=== PATIENT | female | born 1940 | race Caucasian/White ===

== ENCOUNTER 2016-04-21 12:04 | Inpatient (IN) ==
[2016-04-21] MEDS ORDERED: Ondansetron 4 MG/2 ML VIAL IVP ONE (12:19)
[2016-04-21] MEDS ORDERED: Ipratropium/Albuterol Neb 3 ML IH ONE (12:22)
[2016-04-21] MEDS ORDERED: methylPREDNISolone 125 MG/2 ML VIAL IVP ONE (12:22)
[2016-04-21] MEDS ORDERED: 0.9 % Sodium Chloride 1,000 ML IV ONE (12:30)
--- NOTE | 2016-04-21 12:39 | Emergency Department Note ---
Disposition Clinical Impression: [id number] kidney injury, COPD exacerbation, Hypercapnic respiratory failure Disposition: Admitted As Inpatient Time of Disposition: 20:35 General Adult HPI - General Chief complaint: ED Weakness Stated complaint: generalized weakness Time Seen by Provider: 04/21/16 12:06 Source: patient, family, EMS Mode of arrival: EMS Limitations: no limitations Nursing Notes Reviewed: Yes Vital Signs Reviewed: Yes - History of Present Illness HPI Narrative: Ms Higginbotham is a 75-year-old female with past medical history of COPD, aortic valve replacement, iron deficiency anemia, CHF, atrial fibrillation, and breast cancer who presents today with 3 days of generalized weakness. Per patient's patient has been in bed sleeping for almost 3 days, very rarely getting out of bed. He reports that she has been confused about the day and where she is multiple times throughout the last 3 days. On EMS arrival, her O2 saturation was 88% on 2 L which is her baseline supplement oxygen at home. After an albuterol treatment and increase to 4 L supplemental oxygen, her O2 saturation improved to 97%. Patient reports that she has been hurting all over and feeling very weak to the point that she cannot get out of bed. She reports associated shortness of breath and nausea. She denies any upper respiratory infections including runny nose, cough, or congestion. She denies any fever, chills, chest pain or pressure, abdominal pain, or changes in bowel or bladder. On further discussion, patient reports that 3 days ago she fell up steps outside her doctor's office and hit her right hip. She reports that she did not go to the emergency department at that time. She says that she did not hit her head and she did not lose consciousness but that her right hip hurts to walk and to the touch. She states the pain is a 10/10 in severity when she tries to walk and reports pain is better when she does not move. On exam, patient is easily distracted and has difficulty focusing on conversation. She seems slightly confused however she is oriented to person and place. Her eyes are equal and reactive however there is swelling and erythema surrounding her right eye. While she denies any upper respiratory symptoms, she does have wheezing bilateral lung marcano on exam. Abdomen is soft, nontender. She reports significant pain with light touch to right posterior hip. Motor and sensation is grossly intact upper and lower extremities however she does report came with movement of right leg. Pt Subjective Complaint: Generalized weaknesss x 3 days Onset (ago): day(s) Location: right Pain Severity: severe Pain Scale: 9 Improves with: rest Worsens with: movement Associated symptoms: Reports: confusion, malaise, nausea/vomiting, shortness of breath, weakness. Denies: chest pain, cough, diaphoresis, fever/chills, headaches, seizure - Related Data Home Medications Medication Instructions Recorded Confirmed Budesonide/Formoterol 160/4.5 2 puff IH BID PRN 01/30/15 01/12/16 [Symbicort] FLUoxetine HCl [Prozac] 20 mg PO BID 01/30/15 01/12/16 Isosorbide MONOnitrate (24 HR) 30 mg PO DAILY 01/30/15 01/12/16 [Imdur] Furosemide [Lasix] 40 mg PO QPM 08/11/15 01/12/16 Furosemide [Lasix] 80 mg PO QAM 08/11/15 01/12/16 Oxycodone HCl/Acetaminophen 1 tab PO Q6H PRN 08/12/15 01/12/16 [Percocet 10-325 mg Tablet] Allopurinol [Zyloprim 300 MG] 300 mg PO DAILY 01/12/16 01/12/16 Calcium/Vit B12/FA/Pyridoxine 1 tab PO DAILY 01/12/16 01/12/16 [Folic Acid-Vit B6-Vit B12 Tab] Potassium Chloride [K-Tab ER] 20 meq PO BID 01/12/16 01/12/16 Ropinirole HCl [Requip] 2 mg PO BID 01/12/16 01/12/16 Sacubitril/Valsartan [Entresto 24 1 tab PO DAILY 01/12/16 01/12/16 mg-26 mg Tablet] Warfarin [Coumadin] 5 mg PO 5XW 01/12/16 01/12/16 Warfarin [Coumadin] 7.5 mg PO 2XW MDD ,friday01/12/16 01/12/16 Previous Rx's Medication Instructions Recorded Ascorbic Acid [Vitamin C] 250 mg PO BID 30 Days 08/14/15 Ferrous Sulfate 325 mg PO BIDWM #60 tablet 08/14/15 Folic Acid 1 tab PO DAILY #30 tablet 08/16/15 Ergocalciferol (VITAMIN D2) 50,000 unit PO QWEEK #14 capsule 11/03/15 [Vitamin D2 (50,000 UNIT)] Allergies Allergy/AdvReac Type Severity Reaction Status Date / Time albuterol Allergy Drowsy Verified 01/09/16 19:46 Penicillins Allergy Hives Verified 01/09/16 19:46 Sulfa (Sulfonamide Allergy Hives Verified 01/09/16 19:46 Antibiotics) jello AdvReac Nausea Uncoded 01/09/16 19:46 Constitutional: Denies: fever, chills Eyes: Reports: vision change Cardiovascular: Reports: dyspnea on exertion. Denies: chest pain, palpitations Respiratory: Reports: dyspnea, wheezes. Denies: cough Gastrointestinal: Reports: nausea. Denies: abdominal pain, vomiting Genitourinary: Denies: urgency, dysuria, frequency Musculoskeletal: Reports: other (right hip pain) Neurological: Reports: weakness Past Medical History - Past Medical History Medical history: Reports: CHF, COPD, coronary artery disease, diabetes, GI bleed , malignancy, valvular heart disease, other Surgical history: Reports: coronary bypass (CABG), heart valve replacement, MADHAVI/ BSO, other (tonsillectomy, ) Psychiatric history: Reports: no psych history DEVULCANIZER LOADER history: Reports: no DEVULCANIZER LOADER history - Social History Smoking Status: Former smoker Smokeless Tobacco Status: No Alcohol use: Reports: none Drug use: Reports: none Physical Exam - General Limitations: no limitations General appearance: alert, in no apparent distress - Head Head exam: atraumatic, normocephalic - Eye Eye exam: Present: conjunctival injection (right eye), periorbital swelling ( right eye) - ENT ENT exam: normal exam - Neck Neck exam: Present: normal inspection - Chest Chest inspection: Present: normal inspection, symmetric chest wall rise - Respiratory Respiratory exam: Present: wheezes, other (diminished lung sounds and wheezing BL lung marcano) - Cardiovascular Cardiovascular exam: Present: regular rate, normal rhythm - Abdominal Exam Abdominal exam: Present: soft, Non-Tender - Expanded Lower Extremity Exam Hip/Pelvis exam: Present: tenderness (to palpation of right hip) - Neurological Exam Neurological exam: Present: alert, CN II-XII intact - Psychiatric Psychiatric exam: Present: normal affect, normal mood - Skin Skin exam: Present: warm, dry, intact Course Course Narrative: Ms Higginbotham is a 75-year-old female who presents today with 3 days of generalized weakness. On EMS arrival, she was hypoxic. She reports associated shortness of breath and nausea. On further discussion, patient reports that 3 days ago she fell up steps outside her doctor's office and hit her right hip. She reportsthat her right hip hurts to walk and to the touch. On exam, patient is easily distracted and has difficulty focusing on conversation. She seems slightly confused however she is oriented to person and place. Her eyes are equal and reactive however there is swelling and erythema surrounding her right eye. While she denies any upper respiratory symptoms, she does have wheezing bilateral lung marcano on exam. Abdomen is soft, nontender. She reports significant pain with light touch to right posterior hip. Motor and sensation is grossly intact upper and lower extremities however she does report came with movement of right leg. Because of her confusion, with do a CT scan of her head and an EKG. Will her low oxygen saturation, will do a CXR, 3 duoneb treatments , steroids and an ABG. With her hip pain will get a x-ray of her right hip. Will get basic labs, including CBC, CMP, trop, BNP and UA. - Reevaluation(s) Reevaluation #1: Patient remais awake and alert. CT scan a pet showed no acute inter-cranial abnormality. EKG showed no changes from previous with normal sinus rhythm. Right hip x-ray showed no acute osseous abnormality. CMP showed acute and chronic kidney injury with creatinine 3.5. After 3 DuoNeb stations till requiring supplemental oxygen. ABG showed to be hypoxemia and hypercapnic - pH 7.26/ pCO2 86/ PpO2 91/ 38.6. Will give patient some Ativan and place patient on BiPAP. Recheck ABG in 30min. Time: 14:29 Reevaluation #2: Repeat ABG done 30 minutes after being on BiPAP shows CO2 increase from 86 to 88 mph decrease to 7.22. Believe this patient needs admission and BiPAP treatment. However do not feel at this time this patient meets criteria for intubation. Despite Ativan to help with the anxiety associated with BiPAP, patient is able to open eyes when asked screen squeeze my hand and follow commands. Discussed the case for hospitals and he has agreed to admission. - Consultations Consultation #1: Discussed case with Dr. Avery, hospitalist, and he would like us to observe patient on BiPAP to ensure she does not need intubation. We do not feel that patient requires intubation at this time OR ICU level care. He requested that we monitor the patient on BiPAP to see how she does for 30min and do a repeat ABG. Consultation #2: Discussed the case with the hospitalist again and he agreed to admission. Vital Signs Temperature 98.0 F 04/21/16 12:08 Pulse Rate 89 04/21/16 12:08 Respiratory Rate 16 04/21/16 12:08 Blood Pressure 125/112 04/21/16 12:08 O2 Sat by Pulse Oximetry 94 L 04/21/16 12:08 Temperature 97.7 F 04/21/16 17:24 Pulse Rate 83 04/21/16 20:02 Respiratory Rate 12 04/21/16 20:00 Blood Pressure 92/52 04/21/16 20:00 O2 Sat by Pulse Oximetry 100 04/21/16 20:00 Oxygen Delivery Oxygen Delivery Bipap Medical Decision Making - MDM Narrative Medical decision making narrative: Ms Higginbotham is a 75-year-old female who presents today with 3 days of generalized weakness. On EMS arrival, she was hypoxic. She reports associated shortness of breath and nausea. On further discussion, patient reports that 3 days ago she fell up steps outside her doctor's office and hit her right hip. She reportsthat her right hip hurts to walk and to the touch. On exam, patient is easily distracted and has difficulty focusing on conversation. She seems slightly confused however she is oriented to person and place. Her eyes are equal and reactive however there is swelling and erythema surrounding her right eye. While she denies any upper respiratory symptoms, she does have wheezing bilateral lung marcano on exam. Abdomen is soft, nontender. She reports significant pain with light touch to right posterior hip. Motor and sensation is grossly intact upper and lower extremities however she does report came with movement of right leg. CT scan showed no acute inter-cranial abnormality. EKG showed no changes from previous with normal sinus rhythm. Right hip x-ray showed no acute osseous abnormality. CMP showed acute and chronic kidney injury with creatinine 3.5. After 3 DuoNeb stations till requiring supplemental oxygen. Initial ABG showed to be hypoxemia and hypercapnic - pH 7.26/ pCO2 86/ PpO2 91/ 38.6. Patient placed on BiPAP. I believe that her weakness and fatigue are all likely secondary to hypoxemia and hypercapnia. She is likely not getting enough oxygen and that is why she has been staying in bad and sleeping. Unknown with is the cause of her COPD exacerbation. Patient will need admission, BiPAP and further treatment. - Medical Records Medical records reviewed: Yes I reviewed the patient's medical records. - Lab Data Result diagrams: 04/21/16 14:05 04/21/16 14:05 Lab Results 04/21/16 04/21/16 04/21/16 Range/Units 14:05 14:05 14:05 WBC 8.8 (4.3-11.1) K/mcL RBC 3.47 L (3.82-4.97) M/mcL Hgb 9.3 L (11.5-15.4) g/dL Hct 32.0 L (35.3-44.9) % MCV 92.2 (83.0-100.0) fL MCH 26.8 L (28.0-33.3) pg MCHC 29.1 L (31.6-35.5) g/dL RDW 15.5 H (11.5-14.5) % Plt Count 178 (140-400) K/mcL MPV 10.1 (9.4-12.4) fL Immature Gran % 0.5 (0-4) % Seg Neutrophils % 77.8 % Lymphocytes % 12.6 % Monocytes % 6.8 % Eosinophils % 1.8 % Basophils % 0.5 % Neutrophils # 6.8 (1.6-8.9) K/mcL Lymphocytes # 1.1 (0.6-4.6) K/mcL Monocytes # 0.6 (0.0-1.3) K/mcL Eosinophils # 0.2 (0.0-0.6) K/mcL Basophils # 0.0 (0.0-0.2) K/mcL Immature Plt Fraction 3.2 (1.1-6.1) % PT (9.4-12.1) Seconds INR ABG pH (7.32-7.45) pH Units ABG pCO2 (35-45) mmHg ABG pO2 (85-104) mmHg ABG HCO3 (21-27) mEQ/L ABG Total CO2 (20-26) mEq/L ABG O2 Saturation (95-98) % ABG Base Excess (-2.0 to 3.0) mEq/L Blood Gas Modality Inspired O2 % Sodium 137 (136-145) mEq/L Potassium 4.6 H (3.5-4.5) mEq/L Chloride 97 L (98-109) mEq/L Carbon Dioxide 32 H (19-29) mEq/L BUN 77 H D (7-20) mg/dL Creatinine 3.50 H D (0.57-1.11) mg/dL Est GFR ( Amer) 15 L (> 60) Est GFR (Non-Af Amer) 13 L (> 60) BUN/Creatinine Ratio 22 (6-26) Glucose 128 H (70-99) mg/dL Calculated Osmolality 309 H (280-300) Calcium 8.9 (8.6-10.8) mg/dL Total Bilirubin 0.4 (0.2-1.2) mg/dL AST 20 (5-34) Units/L ALT 11 (0-55) Units/L Alkaline Phosphatase 72 (38-126) Units/L Troponin I 0.01 (0-0.03) ng/mL B-Natriuretic Peptide (0-100) pg/mL Serum Total Protein 6.6 (6.0-8.3) g/dL Albumin 3.4 L (3.5-5.0) g/dL Globulin 3.2 (2.4-3.5) g/dL Albumin/Globulin Ratio 1.1 (1.1-2.2) Urine Color (Yellow) Urine Clarity (Clear) Urine pH (5.0-8.0) pH Units Ur Specific [place] (1.010-1.025) Urine Protein (Neg-Trace) mg/dL Urine Glucose (UA) (Normal) mg/dL Urine Ketones (Negative) mg/dL Urine Blood (Negative) Urine Nitrite (Negative) Urine Bilirubin (Negative) Urine Urobilinogen (Normal) mg/dL Ur Leukocyte Esterase (Negative) Ur Culture Indicated? (NO) 04/21/16 04/21/16 04/21/16 Range/Units 14:05 14:05 14:05 WBC (4.3-11.1) K/mcL RBC (3.82-4.97) M/mcL Hgb (11.5-15.4) g/dL Hct (35.3-44.9) % MCV (83.0-100.0) fL MCH (28.0-33.3) pg MCHC (31.6-35.5) g/dL RDW (11.5-14.5) % Plt Count (140-400) K/mcL MPV (9.4-12.4) fL Immature Gran % (0-4) % Seg Neutrophils % % Lymphocytes % % Monocytes % % Eosinophils % % Basophils % % Neutrophils # (1.6-8.9) K/mcL Lymphocytes # (0.6-4.6) K/mcL Monocytes # (0.0-1.3) K/mcL Eosinophils # (0.0-0.6) K/mcL Basophils # (0.0-0.2) K/mcL Immature Plt Fraction (1.1-6.1) % PT 30.1 H (9.4-12.1) Seconds INR 2.7 ABG pH 7.26 L (7.32-7.45) pH Units ABG pCO2 86 H* (35-45) mmHg ABG pO2 91 (85-104) mmHg ABG HCO3 38.6 H (21-27) mEQ/L ABG Total CO2 41.2 H (20-26) mEq/L ABG O2 Saturation 96 (95-98) % ABG Base Excess 8.5 H (-2.0 to 3.0) mEq/L Blood Gas Modality [place] Inspired O2 40 % Sodium (136-145) mEq/L Potassium (3.5-4.5) mEq/L Chloride (98-109) mEq/L Carbon Dioxide (19-29) mEq/L BUN (7-20) mg/dL Creatinine (0.57-1.11) mg/dL Est GFR ( Amer) (> 60) Est GFR (Non-Af Amer) (> 60) BUN/Creatinine Ratio (6-26) Glucose (70-99) mg/dL Calculated Osmolality (280-300) Calcium (8.6-10.8) mg/dL Total Bilirubin (0.2-1.2) mg/dL AST (5-34) Units/L ALT (0-55) Units/L Alkaline Phosphatase (38-126) Units/L Troponin I (0-0.03) ng/mL B-Natriuretic Peptide 151 H (0-100) pg/mL Serum Total Protein (6.0-8.3) g/dL Albumin (3.5-5.0) g/dL Globulin (2.4-3.5) g/dL Albumin/Globulin Ratio (1.1-2.2) Urine Color (Yellow) Urine Clarity (Clear) Urine pH (5.0-8.0) pH Units Ur Specific [place] (1.010-1.025) Urine Protein (Neg-Trace) mg/dL Urine Glucose (UA) (Normal) mg/dL Urine Ketones (Negative) mg/dL Urine Blood (Negative) Urine Nitrite (Negative) Urine Bilirubin (Negative) Urine Urobilinogen (Normal) mg/dL Ur Leukocyte Esterase (Negative) Ur Culture Indicated? (NO) 04/21/16 04/21/16 Range/Units 14:17 15:50 WBC (4.3-11.1) K/mcL RBC (3.82-4.97) M/mcL Hgb (11.5-15.4) g/dL Hct (35.3-44.9) % MCV (83.0-100.0) fL MCH (28.0-33.3) pg MCHC (31.6-35.5) g/dL RDW (11.5-14.5) % Plt Count (140-400) K/mcL MPV (9.4-12.4) fL Immature Gran % (0-4) % Seg Neutrophils % % Lymphocytes % % Monocytes % % Eosinophils % % Basophils % % Neutrophils # (1.6-8.9) K/mcL Lymphocytes # (0.6-4.6) K/mcL Monocytes # (0.0-1.3) K/mcL Eosinophils # (0.0-0.6) K/mcL Basophils # (0.0-0.2) K/mcL Immature Plt Fraction (1.1-6.1) % PT (9.4-12.1) Seconds INR ABG pH 7.22 L (7.32-7.45) pH Units ABG pCO2 88 H* (35-45) mmHg ABG pO2 79 L (85-104) mmHg ABG HCO3 36.0 H (21-27) mEQ/L ABG Total CO2 38.7 H (20-26) mEq/L ABG O2 Saturation 93 L (95-98) % ABG Base Excess 6.6 H (-2.0 to 3.0) mEq/L Blood Gas Modality BIPAP Inspired O2 40 % Sodium (136-145) mEq/L Potassium (3.5-4.5) mEq/L Chloride (98-109) mEq/L Carbon Dioxide (19-29) mEq/L BUN (7-20) mg/dL Creatinine (0.57-1.11) mg/dL Est GFR ( Amer) (> 60) Est GFR (Non-Af Amer) (> 60) BUN/Creatinine Ratio (6-26) Glucose (70-99) mg/dL Calculated Osmolality (280-300) Calcium (8.6-10.8) mg/dL Total Bilirubin (0.2-1.2) mg/dL AST (5-34) Units/L ALT (0-55) Units/L Alkaline Phosphatase (38-126) Units/L Troponin I (0-0.03) ng/mL B-Natriuretic Peptide (0-100) pg/mL Serum Total Protein (6.0-8.3) g/dL Albumin (3.5-5.0) g/dL Globulin (2.4-3.5) g/dL Albumin/Globulin Ratio (1.1-2.2) Urine Color Yellow (Yellow) Urine Clarity Clear (Clear) Urine pH 5.5 (5.0-8.0) pH Units Ur Specific [place] 1.018 (1.010-1.025) Urine Protein Negative (Neg-Trace) mg/dL Urine Glucose (UA) Normal (Normal) mg/dL Urine Ketones Negative (Negative) mg/dL Urine Blood Negative (Negative) Urine Nitrite Negative (Negative) Urine Bilirubin Negative (Negative) Urine Urobilinogen Normal (Normal) mg/dL Ur Leukocyte Esterase Negative (Negative) Ur Culture Indicated? NO (NO) - EKG Data EKG #1 EKG attestation: Yes I reviewed and interpreted this EKG. EKG results narrative: EKG shows sinus arrhythmia with no real changes seen from previous EKG taken on 01/12/2016. No ST segement elevation or T wave inversion. Ventricular rate was 75 bpm, [place] interval 194ms, QRS duration 120ms, QTC 431ms. Critical Care Time Critical Care Time: Yes Total Critical Care Time: 35 Attestation: Critical care performed: Time is exclusive of separately billable procedures. Time includes: direct patient care, patient reassessment, coordination of patient care, interpretation of data (laboratory data, radiology data, and respiratory data), review of patient's medical records, medical consultation and documentation of patient care. Procedures included in critical care time: Procedures excluded from critical care time: Attestation Statement - Attestation Attestation: I examined this patient and my medical decision-making was reviewed with the SHOP MECHANIC HELPER/PA/Advanced Practice Nurse/Resident Physician. I agree with the documented findings, disposition and treatment plan as described except to the extent set forth below. Patient to the emergency department complaining of not feeling well. Her states that she has been laying in bed for 3 days. No fever. Did have a fall a few days ago and is been complaining of hip pain. States she is more confused than normal. On exam patient has expiratory wheezing. Tenderness over that hip. Plan. Septic workup with ABG. Patient with hypercapnic respiratory failure. Placed on BiPAP. Tolerating well. Still awake and alert. Admitted to medicine.
[2016-04-21 14:13] LABS: Basophils % 0.5 %; Eosinophils # 0.2 K/mcL (0.0-0.6); Eosinophils % 1.8 %; Hemoglobin 9.3 g/dL (11.5-15.4); Immature Granulocytes % 0.5 % (0-4); Immature Platelets 3.2 % (1.1-6.1); Lymphocytes # 1.1 K/mcL (0.6-4.6); Lymphocytes % 12.6 %; Mean Corpuscular HGB Conc 29.1 g/dL (31.6-35.5); Mean Corpuscular Hemoglobin 26.8 pg (28.0-33.3); Mean Corpuscular Volume 92.2 fL (83.0-100.0); Mean Platelet Volume 10.1 fL (9.4-12.4); Monocytes # 0.6 K/mcL (0.0-1.3); Monocytes % 6.8 %; Neutrophils # 6.8 K/mcL (1.6-8.9); Platelet Count 178 K/mcL (140-400); Red Blood Count 3.47 M/mcL (3.82-4.97); Red Cell Distribution Width 15.5 % (11.5-14.5); Segmented Neutrophils % 77.8 %
[2016-04-21 14:19] LABS: INR 2.7; Prothrombin Time 30.1 Seconds (9.4-12.1)
[2016-04-21 14:27] LABS: Albumin 3.4 g/dL (3.5-5.0); Albumin/Globulin Ratio 1.1 (1.1-2.2); Bilirubin,Total 0.4 mg/dL (0.2-1.2); Calcium 8.9 mg/dL (8.6-10.8); Globulin 3.2 g/dL (2.4-3.5); Potassium 4.6 mEq/L (3.5-4.5); Total Protein 6.6 g/dL (6.0-8.3)
[2016-04-21] MEDS ORDERED: *HR* LORazepam 2 MG/ML VIAL IVP ONE (14:33)
[2016-04-21] MEDS ORDERED: Levofloxacin 500 MG/100 ML 500 MG/100 ML BAG IVPB ONE (14:37)
[2016-04-21 14:38] LABS: Bilirubin,Urine Negative (Negative); Blood,Urine Negative (Negative); Clarity,Urine Clear (Clear); Color,Urine Yellow (Yellow); Glucose,Urine (UA) Normal (Normal); Ketones,Urine Negative (Negative); Leukocyte Esterase,Urine Negative (Negative); Nitrite,Urine Negative (Negative); PH,Urine 5.5 pH Units (5.0-8.0); Protein,Urine Negative (Neg-Trace); Specific Gravity,Urine 1.018 (1.010-1.025); Urobilinogen,Urine Normal (Normal)
[2016-04-21 15:56] LABS: ABG Base Excess 6.6 mEq/L (-2.0 to 3.0); ABG Oxygen Saturation 93 % (95-98); ABG PH 7.22 pH Units (7.32-7.45); ABG PO2 79 mmHg (85-104); ABG TCO2 38.7 mEq/L (20-26)
[2016-04-21 15:58] LABS: ABG PCO2 88 mmHg (35-45); Blood Gas FiO2 40 %
[2016-04-21 16:06] LABS: ABG PH 7.26 pH Units (7.32-7.45)
[2016-04-21 16:07] LABS: ABG Base Excess 8.5 mEq/L (-2.0 to 3.0); ABG HCO3 38.6 mEQ/L (21-27); ABG Oxygen Saturation 96 % (95-98); ABG PCO2 86 mmHg (35-45); ABG PO2 91 mmHg (85-104); ABG TCO2 41.2 mEq/L (20-26)
[2016-04-21 16:08] LABS: Blood Gas FiO2 40 %
--- NOTE | 2016-04-21 16:42 | Internal Med History&Physical ---
<Mendel Lino - Last Filed: 04/21/16 16:57> Date of Encounter: 04/21/16 Time of Encounter: 16:15 Assessment and Plan (1) Acute and chronic respiratory failure Current visit: Yes Status: Acute Patient presents to the hospital in acute respiratory failure with hypoxemia and hypercapnia. She reportedly has spent the last 3 days doing nothing but sleeping. She normally uses 2 L oxygen at home due to her COPD. At presentation was initially seen that oxygen saturation was 88%, and have itself this is not necessarily a bad oxygen saturation for someone with COPD, but she was having respiratory acidosis with hypercapnia. She was placed on BiPAP, but initial repeat labs done after BiPAP placement showed worsening respiratory failure. BiPAP settings were adjusted and the patient seemed to improve. Rales were heard on exam, but she has not even drank anything in 3 days, suggesting dehydration and further suggesting respiratory infection causing acute exacerbation COPD (even though no wheezing was heard on exam). Will score 1.5, unlikely PE give patient presentation. Continue BiPAP as needed, to decrease CO2 We will provide gentle fluids at 75 mL an hour 500 mL bolus normal saline because of patient hypotension Scheduled and when necessary DuoNeb's 80 mg Solu-Medrol every 6 hours IV Levaquin 750 mg every 48 hour We will obtain echocardiogram We will continue to monitor Diabetes is on her previous medical history, current blood sugar reasonable with no insulin or by mouth medications, will monitor and provide low-dose sliding scale if needed because of steroid usage Qualifiers: Respiratory failure complication: hypoxia and hypercapnia Qualified Code(s) : J96.21 - Acute and chronic respiratory failure with hypoxia; J96.22 - Acute and chronic respiratory failure with hypercapnia (2) Acute exacerbation of chronic obstructive airways disease Current visit: No Status: Resolved No wheezing heard on exam, possibly due to decreased air movement. Patient definitely having increased shortness of breath requiring BiPAP in order to maintain adequate oxygen saturation and decreased CO2. Continue BiPAP as needed 750 mg IV Levaquin every 48 hour Scheduled and as needed DuoNeb's 80 mg Solu-Medrol every 6 hours (3) Congestive heart failure Current visit: No Status: Chronic Patient has history of congestive heart failure with last echocardiogram in January 2015 showing ejection fraction of 30%. Patient has AICD placed in right chest. We will obtain echocardiogram We will cautiously give fluids because of patient dehydration We will continue home medications, but hold Lasix currently Qualifiers: Congestive heart failure type: systolic Congestive heart failure chronicity : chronic Qualified Code(s): I50.22 - Chronic systolic (congestive) heart failure (4) Hypotension Current visit: Yes Status: Acute Hypertension of 90/54 seen on last vitals checked. We will order 500 mL normal saline bolus 75 mL an hour normal saline We will monitor closely Qualifiers: Hypotension type: unspecified hypotension type Qualified Code(s): I95.9 - Hypotension, unspecified (5) Ozfwm-oh-hrgxrvg kidney injury Current visit: Yes Status: Acute Patient reportedly has not ate or drank much in the last 3 days. Acute kidney injury likely due to dehydration from lack of by mouth intake. We will give 500 mL bolus normal saline Gentle fluid repletion due to concern of patient history of congestive heart failure. 75 mL/hour of normal saline (6) H/O aortic valve replacement with tissue graft Current visit: No Status: Chronic (7) DVT prophylaxis Current visit: No Status: Acute Patient currently therapeutic on Coumadin for paroxysmal atrial fibrillation Continue Coumadin On her INR, starting medication that might affect INR going forward. Will adjust accordingly Internal Medicine - H&P: HPI Chief complaint: AMS and SOB Admitted From: Home Plans for Post Hospital Care: Home History of present illness: Ms. Higginbotham is a 75 year old female with history of congestive heart failure (last echo in January 2015 showed EF of 30%), COPD (on 2 L home oxygen), coronary artery disease, diabetes, history of breast cancer, aortic valve replaced, prior CABG, and prior MADHAVI/BSO was brought to the ER by squad because of altered mental status and difficulty breathing for the last 3 days. According to the patient's sister and in speaking with the emergency room doctor (who spoke with the patient's fiancee) the patient has been doing nothing but sleeping for the last 3 days. She has not eaten or drank much in this time frame. Unfortunately , no much more history was able to be obtained. In the emergency room she was placed on BiPAP initially had worsening blood gases, the settings were adjusted and the patient's mentation appeared to improve. Past Med Surg Social Fam HX - Past Medical History Medical history: CHF, COPD, coronary artery disease, diabetes, GI bleed, malignancy, valvular heart disease, other Psychiatric history: no psych history - Past Surgical History Surgical History: coronary bypass (CABG), heart valve replacement, MADHAVI/BSO, other (tonsillectomy, ) - Social History Smoking Status: Former smoker Smokeless Tobacco Status: No Alcohol use: none Drug use: none - Family History Mother Family Member Ethnicity: Non- Living Status: Hx Family Cardiac Disorders: No Hx Family Respiratory Disorders: No Hx Family Cancer: Yes (breast cancer) Hx Family GI Disorders: No Hx Family Endocrine Disorder: No Hx Family Neuromuscular Disorders: No Hx Family Neurologic Disorders: No Hx Family HEENT Disorders: No Hx Family Autoimmune Disorders: No Father Living Status: Hx Family Cardiac Disorders: No Hx Family Respiratory Disorders: No Hx Family Cancer: Yes Hx Family GI Disorders: No Hx Family Endocrine Disorder: No Hx Family Neuromuscular Disorders: No Hx Family Neurologic Disorders: No Hx Family HEENT Disorders: No Hx Family Autoimmune Disorders: No Internal Medicine - H&P: Meds Budesonide/Formoterol 160/4.5 [Symbicort] 2 puff IH BID PRN 01/30/15 [History] FLUoxetine HCl [Prozac] 20 mg PO BID 01/30/15 [History] Isosorbide MONOnitrate (24 HR) [Imdur] 30 mg PO DAILY 01/30/15 [History] Furosemide [Lasix] 40 mg PO QPM 08/11/15 [History] Furosemide [Lasix] 80 mg PO QAM 08/11/15 [History] Oxycodone HCl/Acetaminophen [Percocet 10-325 mg Tablet] 1 tab PO Q6H PRN [History] Ascorbic Acid [Vitamin C] 250 mg PO BID 30 Days 08/14/15 [Rx] Ferrous Sulfate 325 mg PO BIDWM #60 tablet 08/14/15 [Rx] Folic Acid 1 tab PO DAILY #30 tablet 08/16/15 [Rx] Ergocalciferol (VITAMIN D2) [Vitamin D2 (50,000 UNIT)] 50,000 unit PO QWEEK #14 capsule 11/03/15 [Rx] Allopurinol [Zyloprim 300 MG] 300 mg PO DAILY 01/12/16 [History] Calcium/Vit B12/FA/Pyridoxine [Folic Acid-Vit B6-Vit B12 Tab] 1 tab PO DAILY [History] Potassium Chloride [K-Tab ER] 20 meq PO BID 01/12/16 [History] Ropinirole HCl [Requip] 2 mg PO BID 01/12/16 [History] Sacubitril/Valsartan [Entresto 24 mg-26 mg Tablet] 1 tab PO DAILY 01/12/16 [ History] Warfarin [Coumadin] 5 mg PO 5XW 01/12/16 [History] Warfarin [Coumadin] 7.5 mg PO 2XW MDD ,friday01/12/16 [History] Allergies albuterol Allergy (Verified 01/09/16 19:46) Drowsy Penicillins Allergy (Verified 01/09/16 19:46) Hives Sulfa (Sulfonamide Antibiotics) Allergy (Verified 01/09/16 19:46) Hives jello Adverse Reaction (Uncoded 01/09/16 19:46) Nausea ROS unobtainable: due to mental status - Constitutional Vitals: Temp Pulse Resp BP Pulse Ox 98.0 F 81 14 100/48 100 04/21/16 12:08 04/21/16 16:29 04/21/16 16:29 04/21/16 16:29 04/21/16 16:29 General appearance: Present: cooperative, disheveled, A&O X 2, pleasant, severe distress - Head Head exam: Present: atraumatic, normocephalic - Eye Eye exam: Present: conjuntiva pink, sclera anicteric - Neck Neck exam general surgery: Present: supple, trachea midline - Respiratory Respiratory exam: Present: decreased breath sounds, rales, respiratory distress. Absent: accessory muscle use, CTAB, rhonchi, wheezes - Cardiovascular Cardiovascular exam: Present: RRR, +S1, +S2. Absent: diastolic murmur, gallop, rubs, systolic murmur - GI/Abdominal GI/Abdominal exam: Present: normal bowel sounds, soft, no peritoneal signs. Absent: distended, tenderness - Extremities Exam Extremities exam: Present: warm, radial pulses palpable and symetrical. Absent : calf tenderness, cyanotic, pedal edema - Neurological Exam Neurological exam: Present: alert, no focal deficits. Absent: oriented X3 ( Oriented to self and place), facial droop, speech deficit - Skin Skin exam: Present: dry, intact Internal Med - H&P Results - Labs CBC & Chem 7: 04/21/16 14:05 04/21/16 14:05 <Jim Johnson R - Last Filed: 04/21/16 17:52> Date of Encounter: 04/21/16 Internal Medicine - H&P: HPI History of present illness: Ms. Higginbotham is a 75 year old female All Systems PM: A 10-system review of systems was performed and is negative for pertinent findings except as documented above in the HPI. - Constitutional Vitals: Temp Pulse Resp BP Pulse Ox 97.7 F 85 15 103/65 100 04/21/16 17:24 04/21/16 17:24 04/21/16 17:24 04/21/16 17:24 04/21/16 17:24 Internal Med - H&P Results - Labs CBC & Chem 7: 04/21/16 14:05 04/21/16 14:05 - Attending Attestation I have seen and examined this patient independently. I have discussed the case with the resident, Dr. Lino. I agree with the data gathering in the HPI, physical examination findings, assessment and plan as documented by the resident. She has history of COPD, has been sleepy, confused, unable to eat or drink since the last 3 days. She is dehydrated and have respiratory acidosis and CO2 retention along with acute kidney injury. She was placed on BiPAP in the emergency department. We will continue management with noninvasive mechanical ventilation. She is DNR DNI. Plan explained to the patient and her sister who was at bedside, they expressed understanding.
[2016-04-21] MEDS ORDERED: Ondansetron 4 MG/2 ML VIAL IVP PRN (16:44)
[2016-04-21] MEDS ORDERED: Naloxone 0.4 MG/ML INJ IVP PRN (16:44)
[2016-04-21] MEDS ORDERED: Acetaminophen 325 MG TABLET PO PRN (16:44)
[2016-04-21] MEDS ORDERED: Ipratropium/Albuterol Neb 3 ML IH PRN (16:51)
[2016-04-21] MEDS ORDERED: *HR* Dextrose 50 % in Water (Syg) 50 ML SYRINGE IVP PRN (16:53)
[2016-04-21] MEDS ORDERED: Dextrose Gel 15 GM PO PRN ×2 (16:53)
[2016-04-21] MEDS ORDERED: D5% in Water 1,000 ML IV PRN (16:53)
[2016-04-21] MEDS ORDERED: Levofloxacin 250 MG/50 ML 250 MG/50 ML BAG IVPB ONE (17:00)
[2016-04-21] MEDS ORDERED: 0.9 % Sodium Chloride 500 ML IVC ONE (17:11)
[2016-04-21] MEDS ORDERED: Warfarin perPT PO PRN (18:00)
[2016-04-21] MEDS ORDERED: *HR* Warfarin 5 MG TABLET PO ONE (18:00)
[2016-04-21] MEDS: 0.9 % Sodium Chloride 1,000 ML IVC SCH (18:57)
[2016-04-21] MEDS: methylPREDNISolone 125 MG/2 ML VIAL IVP SCH ×2 (18:58→23:43)
[2016-04-21] MEDS: Insulin LISPRO 300 UNITS/3 ML VIAL SQ SCH (18:58)
[2016-04-21] MEDS: Ipratropium/Albuterol Neb 3 ML IH SCH ×2 (20:35→23:51)
[2016-04-21] MEDS ORDERED: Insulin LISPRO 300 UNITS/3 ML VIAL SQ SCH (21:00)
[2016-04-21 21:08] LABS: ABG Base Excess 7.4 mEq/L (-2.0 to 3.0); ABG HCO3 36.3 mEQ/L (21-27); ABG Oxygen Saturation 99 % (95-98); ABG PH 7.26 pH Units (7.32-7.45); ABG PO2 137 mmHg (85-104); ABG TCO2 38.8 mEq/L (20-26)
[2016-04-21 21:09] LABS: ABG PCO2 81 mmHg (35-45); Blood Gas FiO2 60 %
[2016-04-22] MEDS: Insulin LISPRO 300 UNITS/3 ML VIAL SQ SCH ×5 (00:07→18:14)
[2016-04-22 04:41] LABS: ABG PH 7.31 pH Units (7.32-7.45); ABG PO2 92 mmHg (85-104)
[2016-04-22 04:42] LABS: ABG Base Excess 7.7 mEq/L (-2.0 to 3.0); ABG HCO3 35.2 mEQ/L (21-27); ABG Oxygen Saturation 96 % (95-98); ABG TCO2 37.3 mEq/L (20-26); Blood Gas FiO2 40 %
[2016-04-22 04:43] LABS: ABG PCO2 70 mmHg (35-45)
[2016-04-22] MEDS: Ipratropium/Albuterol Neb 3 ML IH SCH ×7 (05:00→23:02)
[2016-04-22] MEDS: methylPREDNISolone 125 MG/2 ML VIAL IVP SCH ×3 (05:36→18:14)
[2016-04-22 05:55] LABS: INR 2.8; Prothrombin Time 31.4 Seconds (9.4-12.1)
[2016-04-22 06:20] LABS: Hematocrit 27.3 % (35.3-44.9); Immature Granulocytes % 1.1 % (0-4); Lymphocytes # 0.2 K/mcL (0.6-4.6); Lymphocytes % 4.3 %; Mean Corpuscular HGB Conc 29.3 g/dL (31.6-35.5); Mean Corpuscular Hemoglobin 26.5 pg (28.0-33.3); Mean Corpuscular Volume 90.4 fL (83.0-100.0); Mean Platelet Volume 10.6 fL (9.4-12.4); Monocytes % 0.7 %; Neutrophils # 4.1 K/mcL (1.6-8.9); Platelet Count 143 K/mcL (140-400); Red Blood Count 3.02 M/mcL (3.82-4.97); Red Cell Distribution Width 15.1 % (11.5-14.5); Segmented Neutrophils % 93.9 %
[2016-04-22 06:33] LABS: Calcium 8.4 mg/dL (8.6-10.8); Magnesium 2.3 mg/dL (1.6-2.6); Phosphorous 5.1 mg/dL (2.3-4.7); Potassium 5.3 mEq/L (3.5-4.5)
[2016-04-22] MEDS ORDERED: Insulin LISPRO 300 UNITS/3 ML VIAL SQ SCH (07:30)
[2016-04-22 08:05] LABS: Anisocytosis 1+ (Not Present); Platelet Estimate Normal (Normal)
[2016-04-22] MEDS: Pantoprazole 40 MG VIAL IVP SCH (09:59)
[2016-04-22] MEDS: 0.9 % Sodium Chloride 1,000 ML IVC SCH (09:59)
--- NOTE | 2016-04-22 13:32 | ECHO - Doppler Report ---
Echocardiogram Name: Janay Higginbotham Date of Study: 04/22/2016 Date: 1940 Ht: 60.0 in Medical Record#: [id number] Age: 75 Wt: 204.0 lb Gender: Female BSA: 1.88 Order #: [id number] Location: [facility] Room #: 2N14 Reading Physician: Juni Ramirez DO, ILIA, LUCILA CUADRA Glass Sander: Brenda Bird RVT Ordering Physician: Mendel Lino DO Primary Physician: Francisco Melgar DO Indications: Past heart failure, repiratory distress Impressions: LVEF 55%. Mildly dilated left ventricle. Normal LV wall thickness and function. Mild left ventricular diastolic dysfunction. Atypical septal motion consistent with post-operative status. Normal right ventricular structure and function. Mechanical aortic valve appears well seated in the LVOT. Leaflest were not well visualized, but appears to demosntrate acceptable function by Doppler. Mean gradient 20 mmHg. Correlate with size and type of valve. No aortic regurgitation. No evidence of pulmonary hypertension. Compared to prior reports, LVEF has improved. Left Ventricular Wall Motion: Rest Echo Findings All wall segments showed normal motion. Findings: Study Quality * Technically sub-optimal due to poor echocardiographic windows. ECG Findings * Normal sinus rhythm. Left Ventricle * LVEF 55%. * Mildly dilated left ventricle. * Normal LV wall thickness and function. * Mild left ventricular diastolic dysfunction. * Atypical septal motion consistent with post-operative status. Right Ventricle * Normal right ventricular structure and function. Left Atrium * Moderately dilated left atrium. Right Atrium * Mildly dilated right atrium. Interatrial Septum * No evidence of PFO by color Doppler. Aortic Valve * Mechanical aortic valve appears well seated in the LVOT. Leaflest were not well visualized, but appears to demosntrate acceptable function by Doppler. * Mean gradient 20 mmHg. Correlate with size and type of valve. * No aortic regurgitation. Mitral Valve * Mild mitral annular calcification * No mitral stenosis. * No mitral regurgitation. Tricuspid Valve * Normal tricuspid valve structure and function. * Trace tricuspid regurgitation. * No evidence of pulmonary hypertension. Pulmonic Valve * Pulmonic valve not well visualized. Aorta * Normally sized aortic root. Pericardium * The pericardium appears normal. IVC * Normal IVC dimensions and inspiratory collapse. Pulmonary Artery * Normal visualized portions of the main pulmonary artery. History Family History of CAD Pacer/ICD Implant Valvular Disease Valve Replacement AV Prosthesis Mechanical 01/30/2015 a Previous Echo was performed. Measurements: BP: 83/ 43 2D Normal Values RVIDd: 2.49 cm <2.7 cm IVSd: .81 cm 0.6 - 1.0 cm LVIDd: 5.60 cm 3.7 - 5.6 cm LVPWd: .82 cm 0.6 - 1.1 cm LVIDs: 4.77 cm 1.5 - 3.6 cm AO: 2.00 cm < 4.0 cm LA: 4.50 cm 2.0 - 4.0cm %FS: 31.20 cm >25 % LVOT Diam: 1.80 cm LA volume: 90.2 Mitral Valve Peak E:1.18 m/sec Peak A:1.38 m/sec E/A Ratio:0.9 Peak E' Lat Jayant:18.6 cm/s Peak E' Med Jayant:10.4 cm/s E/E' Lat Ratio:6.3 E/E' Med Ratio:11.3 LVOT Peak Jayant:1.05 m/sec Mean Jayant:.67 m/sec Peak Grad:4.00 mmHg Mean Grad:2.33 mmHg Aortic Valve Peak Jayant:2.91 m/sec Mean Jayant:1.94 m/sec Peak Grad:34.00 mmHg Mean Grad:17.40 mmHg Valve Area:.98 cm2 Tricuspid Valve TV Regurg Peak Grad: 12.00mmHg TV Regurg Peak Jayant: 1.75m/sec Updated by Juni Ramirez DO, ILIA, LUCILA CUADRA on 04/22/2016 1:28:13 PM electronically signed on 04/22/2016 1:28:38 PM with status of Final Wall Motion Harrison: 1=Normal, 2=Hypokinesis, 3=Akinesis, 4=Dyskinesis, 5=Aneurysmal, 6=Hyperkinetic, X=Not Visualized (Blank)=Missing
--- NOTE | 2016-04-22 14:34 | Electrocardiograph Report ---
[facility] Test Date: 2016-04-21 Pat Name: Janay Higginbotham Department: 105 Room: 2N14 Gender: F Clearing Supervisor: : 1940 Requested By: Natalee Bolton Order Number: [id number] Reading MD: Leonard Sánchez MD Measurements Intervals Marshall Rate: 75 P: 60 HI: 164 QRS: -3 QRSD: 120 T: 21 QT: 403 QTc: 431 Interpretive Statements SINUS RHYTHM WITH SINUS ARRHYTHMIA INTRAVENTRICULAR CONDUCTION DELAY POOR R WAVE PROGRESSION Electronically Signed On 04-22-16 14:33:40 EST by Leonard Sánchez MD
[2016-04-22] MEDS ORDERED: 0.9 % Sodium Chloride 500 ML IVC ONE (15:37)
--- NOTE | 2016-04-22 16:38 | Internal Med Progress Note ---
Date of Encounter: 04/22/16 Time of Encounter: 10:55 - Assessment and plan (1) Acute and chronic respiratory failure Current Visit: Yes Status: Acute Assessment and plan: Improved with BiPAP Awake and alert this a.m Continue O2 Secondary to COPDE Continue steroids, antibiotics Continue scheduled and prn nebs ECHO noted for LVEF 50%, prostheticc AV is functional Continue close monitoring BiPAP at bedside patient is DNR/DNI Qualifiers: Respiratory failure complication: hypoxia and hypercapnia Qualified Code(s) : J96.21 - Acute and chronic respiratory failure with hypoxia; J96.22 - Acute and chronic respiratory failure with hypercapnia (2) Baogx-ip-eenksuf kidney injury Current Visit: Yes Status: Acute Assessment and plan: Improving. Cr today Given gentle bolus 500cc due to age and CHF Continue maintenance fluid Monitor closely Avoid nephrotoxins (3) COPD exacerbation Current Visit: Yes Status: Acute Assessment and plan: Management as in respiratory failure (4) Diabetes Current Visit: Yes Status: Chronic Assessment and plan: Supplemental scale insulin, diet-controlled at home Qualifiers: Diabetes mellitus type: other specified (including [place]) Diabetes mellitus complication status: with unspecified complications Diabetes mellitus technician terminal and repeater insulin use: without shelter use Qualified Code(s): E13.8 - Other specified diabetes mellitus with unspecified complications (5) Hypotension Current Visit: Yes Status: Acute Assessment and plan: IVF Qualifiers: Hypotension type: unspecified hypotension type Qualified Code(s): I95.9 - Hypotension, unspecified (6) DVT prophylaxis Current Visit: Yes Status: Acute Assessment and plan: Patient on Coumadin, INR is therapeutic (7) H/O aortic valve replacement with tissue graft Current Visit: No Status: Chronic Assessment and plan: Continue coumadin (8) Hypothyroidism Current Visit: Yes Status: Chronic Assessment and plan: Resume synthroid Qualifiers: Hypothyroidism type: unspecified Qualified Code(s): E03.9 - Hypothyroidism , unspecified (9) Atrial fibrillation Current Visit: Yes Status: Chronic Assessment and plan: Rate controlled s/p ICD Continue coumadin INR therapeutic Qualifiers: Atrial fibrillation type: chronic Qualified Code(s): I48.2 - Chronic atrial fibrillation - Subjective Interval history: 75 Y/O F DNR/DNI Admitted for management of acute on chronic respiratory failure secondary to COPDE required BiPAP on admission , now improved Other PMH significant for Afib with ICD, on Coumadin, DM, HTN, Hypothyroidism, s /p aorti valve repalcement Seen at bedside this morning, reports improvement Patient remained hypotensive with MAP ~58 at time of review - Constitutional Vitals: Temp Pulse Resp BP Pulse Ox 99.3 F 94 18 93/41 95 04/22/16 16:12 04/22/16 16:12 04/22/16 16:12 04/22/16 16:12 04/22/16 16:12 General appearance: Present: cooperative, A&O X 2, pleasant, no acute distress, obese - Head Head exam: Present: atraumatic, normocephalic - Eye Eye exam: Present: PERRL, conjuntiva pink, sclera anicteric Pupils: Present: PERRL - Neck Neck exam general surgery: Present: supple, trachea midline. Absent: lymphadenopathy - Respiratory Respiratory exam: Present: CTAB - Cardiovascular Cardiovascular exam: Present: diastolic murmur, irregular rhythm, +S1, +S2, systolic murmur - GI/Abdominal GI/Abdominal exam: Present: normal bowel sounds, soft, no peritoneal signs. Absent: tenderness - Extremities Exam Extremities exam: Absent: pedal edema - Neurological Exam Neurological exam: Present: CN II-XII intact, oriented X3, no focal deficits. Absent: pronater drift, facial droop, speech deficit - Skin Skin exam: Present: dry Internal Medicine: Result - Labs CBC & Chem 7: 04/22/16 05:24 04/22/16 05:24 Labs: Short CBC 04/22/16 Range/Units 05:24 WBC 4.4 (4.3-11.1) K/mcL Hgb 8.0 L (11.5-15.4) g/dL Hct 27.3 L (35.3-44.9) % Plt Count 143 (140-400) K/mcL Neutrophils # 4.1 (1.6-8.9) K/mcL BMP 04/22/16 05:24 Sodium 138 Potassium 5.3 H Chloride 102 Carbon Dioxide 28 BUN 76 H Creatinine 2.61 H Glucose 140 H Calcium 8.4 L - ABG Interpretation ABG results: ABG ABG pH 7.31 pH Units (7.32-7.45) L 04/22/16 04:30 ABG pCO2 70 mmHg (35-45) H* 04/22/16 04:30 ABG pO2 92 mmHg (85-104) 04/22/16 04:30 ABG O2 Saturation 96 % (95-98) 04/22/16 04:30 PT/INR, D-dimer PT 31.4 Seconds (9.4-12.1) H 04/22/16 05:24 Consult Discharge Plan - Plan Referrals: Francisco Melgar Jr [Primary Care Provider] -
[2016-04-22] MEDS ORDERED: *HR* Warfarin 5 MG TABLET PO ONE (18:00)
[2016-04-22] MEDS: Ascorbic Acid 500 MG TABLET PO SCH (22:44)
[2016-04-22] MEDS: FLUoxetine 20 MG CAPSULE PO SCH (22:44)
[2016-04-23] MEDS ORDERED: *HR* Morphine 2 MG/ML SYRINGE IVP ONE (00:39)
[2016-04-23] MEDS ORDERED: Furosemide 40 MG/4 ML VIAL IVP ONE (00:39)
[2016-04-23] MEDS ORDERED: *HR* Morphine 2 MG/ML SYRINGE ONE (00:42)
[2016-04-23] MEDS ORDERED: Furosemide 40 MG/4 ML VIAL ONE (00:42)
[2016-04-23] MEDS: methylPREDNISolone 125 MG/2 ML VIAL IVP SCH ×4 (00:58→21:09)
--- NOTE | 2016-04-23 02:47 | Event Note ---
Date of Encounter: 04/23/16 Time of Encounter: 01:15 I was paged as the patient was jittery and complaining of shortness of breath Pt. on BIPAP and receiving fluids Pt. reported difficulty breathing IV fluids were being given due to hypotension Exam revealed patient in moderate respiratory distress despite BIPAP Bilateral diffuse crepitations present IV fluids DC Lasix 40 mg IV x 1 Morphine 2 mg iv x 1 On reassessment 1 hour later, patient feeling better and no longer jittery Able to sleep in BIPAP And has good urine output [place]
[2016-04-23] MEDS: Ipratropium/Albuterol Neb 3 ML IH SCH ×5 (03:36→21:35)
[2016-04-23 05:20] LABS: ABG HCO3 35.3 mEQ/L (21-27); ABG Oxygen Saturation 94 % (95-98); ABG PCO2 52 mmHg (35-45); ABG PH 7.44 pH Units (7.32-7.45); ABG PO2 68 mmHg (85-104); ABG TCO2 36.9 mEq/L (20-26)
[2016-04-23 05:21] LABS: Blood Gas FiO2 35 %; Blood Gas PEEP 8 cm H2O; Blood Gas Respiration Rate 18
[2016-04-23] MEDS: Insulin LISPRO 300 UNITS/3 ML VIAL SQ SCH ×4 (05:31→16:31)
[2016-04-23] MEDS: 0.9 % Sodium Chloride 1,000 ML IVC SCH (05:31)
[2016-04-23 06:19] LABS: Basophils % 0.1 %; Hematocrit 25.4 % (35.3-44.9); Hemoglobin 7.9 g/dL (11.5-15.4); Immature Granulocytes % 0.7 % (0-4); Lymphocytes # 0.2 K/mcL (0.6-4.6); Lymphocytes % 2.1 %; Mean Corpuscular HGB Conc 31.1 g/dL (31.6-35.5); Mean Corpuscular Hemoglobin 27.1 pg (28.0-33.3); Mean Platelet Volume 10.3 fL (9.4-12.4); Monocytes # 0.3 K/mcL (0.0-1.3); Monocytes % 2.3 %; Neutrophils # 10.7 K/mcL (1.6-8.9); Platelet Count 136 K/mcL (140-400); Red Blood Count 2.92 M/mcL (3.82-4.97); Red Cell Distribution Width 15.5 % (11.5-14.5); Segmented Neutrophils % 94.8 %
[2016-04-23 06:26] LABS: INR 2.7; Prothrombin Time 30.5 Seconds (9.4-12.1)
[2016-04-23 07:52] LABS: Calcium 9.2 mg/dL (8.6-10.8); Potassium 4.2 mEq/L (3.5-4.5)
[2016-04-23] MEDS: Ascorbic Acid 500 MG TABLET PO SCH ×2 (09:03→21:08)
[2016-04-23] MEDS: Folic Acid 1 MG TABLET PO SCH (09:04)
[2016-04-23] MEDS: Pantoprazole 40 MG VIAL IVP SCH (09:04)
[2016-04-23] MEDS: FLUoxetine 20 MG CAPSULE PO SCH ×2 (09:04→21:09)
[2016-04-23] MEDS ORDERED: Levofloxacin 500 MG/100 ML 500 MG/100 ML BAG IVPB SCH (15:00)
--- NOTE | 2016-04-23 15:43 | Internal Med Progress Note ---
Date of Encounter: 04/23/16 Time of Encounter: 08:00 - Assessment and plan (1) Acute and chronic respiratory failure Current Visit: Yes Status: Acute Assessment and plan: Improved this morning. Patient has been requiring BiPAP on and off especially when sleeping. Will assess for BiPAP needs at home with overnight BiPAP and ABG monitoring. Qualifiers: Respiratory failure complication: hypoxia and hypercapnia Qualified Code(s) : J96.21 - Acute and chronic respiratory failure with hypoxia; J96.22 - Acute and chronic respiratory failure with hypercapnia (2) SON (acute kidney injury) Current Visit: No Status: Acute Assessment and plan: Improving. Intravenous fluids have been held. Patient did receive Lasix overnight. Will follow renal function. (3) COPD exacerbation Current Visit: Yes Status: Acute Assessment and plan: Wean FiO2 and steroids as tolerated. Continue bronchodilator nebulizer treatments. (4) DVT prophylaxis Current Visit: Yes Status: Acute Assessment and plan: on Coumadin. INR is therapeutic (5) Hypotension Current Visit: Yes Status: Resolved Assessment and plan: Resolved. Blood pressure is normal. Qualifiers: Hypotension type: other hypotension type Qualified Code(s): I95.89 - Other hypotension (6) Atrial fibrillation Current Visit: Yes Status: Chronic Assessment and plan: Rate controlled. Qualifiers: Atrial fibrillation type: paroxysmal Qualified Code(s): I48.0 - Paroxysmal atrial fibrillation (7) Diabetes Current Visit: Yes Status: Chronic Assessment and plan: Continue to monitor blood sugars. We will adjust insulin regimen as steroids are Weaned down. 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 - Subjective Interval history: Patient complaining of tremors, shortness of breath and jitteriness or anxiety overnight. Received intravenous Lasix. Had improvement in her symptoms afterwards. Currently still having tremors. She says this occurs when she takes her bronchodilators and steroids. She has been refusing intravenous methylprednisolone because of this reason. - Constitutional Vitals: Temp Pulse Resp BP Pulse Ox 98.0 F 96 18 121/69 100 04/23/16 11:38 04/23/16 11:51 04/23/16 11:38 04/23/16 11:38 04/23/16 11:38 General appearance: Present: cooperative, A&O X 2, pleasant, no acute distress, obese Exam: Moderate distress - Respiratory Respiratory exam: Present: decreased breath sounds (Diminished bilaterally), prolonged expiratory phase, wheezes (Bilateral). Absent: accessory muscle use, rales, rhonchi - Cardiovascular Cardiovascular exam: Present: RRR, +S1, +S2. Absent: diastolic murmur, gallop, rubs, systolic murmur - GI/Abdominal GI/Abdominal exam: Present: normal bowel sounds, soft, no peritoneal signs. Absent: distended, tenderness - Extremities Exam Extremities exam: Present: warm, radial pulses palpable and symetrical. Absent : calf tenderness, cyanotic, pedal edema - Neurological Exam Neurological exam: Present: CN II-XII intact, oriented X3, no focal deficits. Absent: facial droop, speech deficit Additional comments: Bilateral tremors - Skin Skin exam: Present: dry, intact Internal Medicine: Result - Labs CBC & Chem 7: 04/23/16 06:00 04/23/16 06:00 Labs: Short CBC 04/23/16 Range/Units 06:00 WBC 11.3 H D (4.3-11.1) K/mcL Hgb 7.9 L (11.5-15.4) g/dL Hct 25.4 L (35.3-44.9) % Plt Count 136 L (140-400) K/mcL Neutrophils # 10.7 H (1.6-8.9) K/mcL BMP 04/23/16 06:00 Sodium 140 Potassium 4.2 D Chloride 102 Carbon Dioxide 29 BUN 68 H Creatinine 1.81 H Glucose 165 H Calcium 9.2 - ABG Interpretation ABG results: ABG ABG pH 7.44 pH Units (7.32-7.45) 04/23/16 05:14 ABG pCO2 52 mmHg (35-45) H 04/23/16 05:14 ABG pO2 68 mmHg (85-104) L 04/23/16 05:14 ABG O2 Saturation 94 % (95-98) L 04/23/16 05:14 PT/INR, D-dimer PT 30.5 Seconds (9.4-12.1) H 04/23/16 06:00 - Impressions Impressions Chest X-Ray 04/23/16 08:14 IMPRESSION: No acute cardiopulmonary process identified. D/ / Diaz Roldan MD / Diaz Roldan MD Interpreting Provider: Diaz Roldan MD Consult Discharge Plan - Plan Referrals: Francisco Melgar Jr [Primary Care Provider] - 05/06/16 3:00 pm (YOUR APPOINTMENT FOR MAY 24, 2016 AT 1420 HAS BEEN CANCELLED) - Attending Attestation This document has been at least partially created by [employer] recognition technology by Dr. Kraft. Errors in grammar, wording or other phrases may exist. If errors are found after the documentation is signed, they will be addressed individually in the addendum section of this document when appropriate. Medical Decision Making - MDM Narrative Medical decision making narrative: High risk for complications - Lab Data Lab results reviewed: Yes I reviewed the patient's lab results. Result diagrams: 04/23/16 06:00 04/23/16 06:00 Lab Results 04/21/16 04/21/16 04/21/16 Range/Units 17:39 20:58 21:01 WBC (4.3-11.1) K/mcL RBC (3.82-4.97) M/mcL Hgb (11.5-15.4) g/dL Hct (35.3-44.9) % MCV (83.0-100.0) fL MCH (28.0-33.3) pg MCHC (31.6-35.5) g/dL RDW (11.5-14.5) % Plt Count (140-400) K/mcL MPV (9.4-12.4) fL Immature Gran % (0-4) % Seg Neutrophils % % Lymphocytes % % Monocytes % % Eosinophils % % Basophils % % Neutrophils # (1.6-8.9) K/mcL Lymphocytes # (0.6-4.6) K/mcL Monocytes # (0.0-1.3) K/mcL Eosinophils # (0.0-0.6) K/mcL Basophils # (0.0-0.2) K/mcL Platelet Estimate (Normal) Anisocytosis (Not Present) PT (9.4-12.1) Seconds INR ABG pH 7.26 L (7.32-7.45) pH Units ABG pCO2 81 H* (35-45) mmHg ABG pO2 137 H (85-104) mmHg ABG HCO3 36.3 H (21-27) mEQ/L ABG Total CO2 38.8 H (20-26) mEq/L ABG O2 Saturation 99 H (95-98) % ABG Base Excess 7.4 H (-2.0 to 3.0) mEq/L Respiration Rate Blood Gas Modality BIPAP Inspired O2 60 % PEEP cm H2O Sodium (136-145) mEq/L Potassium (3.5-4.5) mEq/L Chloride (98-109) mEq/L Carbon Dioxide (19-29) mEq/L BUN (7-20) mg/dL Creatinine (0.57-1.11) mg/dL Est GFR ( Amer) (> 60) Est GFR (Non-Af Amer) (> 60) BUN/Creatinine Ratio (6-26) Glucose (70-99) mg/dL POC Glucose 192 H 192 H (58-89) Calculated Osmolality (280-300) Calcium (8.6-10.8) mg/dL Phosphorus (2.3-4.7) mg/dL Magnesium (1.6-2.6) mg/dL Blood Type Antibody Screen 04/22/16 04/22/16 04/22/16 Range/Units 04:30 05:06 05:24 WBC 4.4 (4.3-11.1) K/mcL RBC 3.02 L (3.82-4.97) M/mcL Hgb 8.0 L (11.5-15.4) g/dL Hct 27.3 L (35.3-44.9) % MCV 90.4 (83.0-100.0) fL MCH 26.5 L (28.0-33.3) pg MCHC 29.3 L (31.6-35.5) g/dL RDW 15.1 H (11.5-14.5) % Plt Count 143 (140-400) K/mcL MPV 10.6 (9.4-12.4) fL Immature Gran % 1.1 (0-4) % Seg Neutrophils % 93.9 % Lymphocytes % 4.3 % Monocytes % 0.7 % Eosinophils % 0.0 % Basophils % 0.0 % Neutrophils # 4.1 (1.6-8.9) K/mcL Lymphocytes # 0.2 L (0.6-4.6) K/mcL Monocytes # 0.0 (0.0-1.3) K/mcL Eosinophils # 0.0 (0.0-0.6) K/mcL Basophils # 0.0 (0.0-0.2) K/mcL Platelet Estimate Normal (Normal) Anisocytosis 1+ A (Not Present) PT (9.4-12.1) Seconds INR ABG pH 7.31 L (7.32-7.45) pH Units ABG pCO2 70 H* (35-45) mmHg ABG pO2 92 (85-104) mmHg ABG HCO3 35.2 H (21-27) mEQ/L ABG Total CO2 37.3 H (20-26) mEq/L ABG O2 Saturation 96 (95-98) % ABG Base Excess 7.7 H (-2.0 to 3.0) mEq/L Respiration Rate Blood Gas Modality BIPAP Inspired O2 40 % PEEP cm H2O Sodium (136-145) mEq/L Potassium (3.5-4.5) mEq/L Chloride (98-109) mEq/L Carbon Dioxide (19-29) mEq/L BUN (7-20) mg/dL Creatinine (0.57-1.11) mg/dL Est GFR ( Amer) (> 60) Est GFR (Non-Af Amer) (> 60) BUN/Creatinine Ratio (6-26) Glucose (70-99) mg/dL POC Glucose 140 H (58-89) Calculated Osmolality (280-300) Calcium (8.6-10.8) mg/dL Phosphorus (2.3-4.7) mg/dL Magnesium (1.6-2.6) mg/dL Blood Type Antibody Screen 04/22/16 04/22/1604/22/17 Range/Units 05:24 05:24 11:56 WBC (4.3-11.1) K/mcL RBC (3.82-4.97) M/mcL Hgb (11.5-15.4) g/dL Hct (35.3-44.9) % MCV (83.0-100.0) fL MCH (28.0-33.3) pg MCHC (31.6-35.5) g/dL RDW (11.5-14.5) % Plt Count (140-400) K/mcL MPV (9.4-12.4) fL Immature Gran % (0-4) % Seg Neutrophils % % Lymphocytes % % Monocytes % % Eosinophils % % Basophils % % Neutrophils # (1.6-8.9) K/mcL Lymphocytes # (0.6-4.6) K/mcL Monocytes # (0.0-1.3) K/mcL Eosinophils # (0.0-0.6) K/mcL Basophils # (0.0-0.2) K/mcL Platelet Estimate (Normal) Anisocytosis (Not Present) PT 31.4 H (9.4-12.1) Seconds INR 2.8 ABG pH (7.32-7.45) pH Units ABG pCO2 (35-45) mmHg ABG pO2 (85-104) mmHg ABG HCO3 (21-27) mEQ/L ABG Total CO2 (20-26) mEq/L ABG O2 Saturation (95-98) % ABG Base Excess (-2.0 to 3.0) mEq/L Respiration Rate Blood Gas Modality Inspired O2 % PEEP cm H2O Sodium 138 (136-145) mEq/L Potassium 5.3 H (3.5-4.5) mEq/L Chloride 102 (98-109) mEq/L Carbon Dioxide 28 (19-29) mEq/L BUN 76 H (7-20) mg/dL Creatinine 2.61 H (0.57-1.11) mg/dL Est GFR ( Amer) 22 L (> 60) Est GFR (Non-Af Amer) 18 L (> 60) BUN/Creatinine Ratio 29 H (6-26) Glucose 140 H (70-99) mg/dL POC Glucose 277 H (58-89) Calculated Osmolality 311 H (280-300) Calcium 8.4 L (8.6-10.8) mg/dL Phosphorus 5.1 H (2.3-4.7) mg/dL Magnesium 2.3 (1.6-2.6) mg/dL Blood Type Antibody Screen 04/22/16 04/23/16 04/23/16 Range/Units 18:29 05:14 06:00 WBC 11.3 H D (4.3-11.1) K/mcL RBC 2.92 L (3.82-4.97) M/mcL Hgb 7.9 L (11.5-15.4) g/dL Hct 25.4 L (35.3-44.9) % MCV 87.0 (83.0-100.0) fL MCH 27.1 L (28.0-33.3) pg MCHC 31.1 L (31.6-35.5) g/dL RDW 15.5 H (11.5-14.5) % Plt Count 136 L (140-400) K/mcL MPV 10.3 (9.4-12.4) fL Immature Gran % 0.7 (0-4) % Seg Neutrophils % 94.8 % Lymphocytes % 2.1 % Monocytes % 2.3 % Eosinophils % 0.0 % Basophils % 0.1 % Neutrophils # 10.7 H (1.6-8.9) K/mcL Lymphocytes # 0.2 L (0.6-4.6) K/mcL Monocytes # 0.3 (0.0-1.3) K/mcL Eosinophils # 0.0 (0.0-0.6) K/mcL Basophils # 0.0 (0.0-0.2) K/mcL Platelet Estimate (Normal) Anisocytosis (Not Present) PT (9.4-12.1) Seconds INR ABG pH 7.44 (7.32-7.45) pH Units ABG pCO2 52 H (35-45) mmHg ABG pO2 68 L (85-104) mmHg ABG HCO3 35.3 H (21-27) mEQ/L ABG Total CO2 36.9 H (20-26) mEq/L ABG O2 Saturation 94 L (95-98) % ABG Base Excess 10.0 H (-2.0 to 3.0) mEq/L Respiration Rate 18 Blood Gas Modality BIPAP Inspired O2 35 % PEEP 8 cm H2O Sodium (136-145) mEq/L Potassium (3.5-4.5) mEq/L Chloride (98-109) mEq/L Carbon Dioxide (19-29) mEq/L BUN (7-20) mg/dL Creatinine (0.57-1.11) mg/dL Est GFR ( Amer) (> 60) Est GFR (Non-Af Amer) (> 60) BUN/Creatinine Ratio (6-26) Glucose (70-99) mg/dL POC Glucose 259 H (58-89) Calculated Osmolality (280-300) Calcium (8.6-10.8) mg/dL Phosphorus (2.3-4.7) mg/dL Magnesium (1.6-2.6) mg/dL Blood Type Antibody Screen 04/23/16 04/23/16 04/23/16 Range/Units 06:00 06:00 06:00 WBC (4.3-11.1) K/mcL RBC (3.82-4.97) M/mcL Hgb (11.5-15.4) g/dL Hct (35.3-44.9) % MCV (83.0-100.0) fL MCH (28.0-33.3) pg MCHC (31.6-35.5) g/dL RDW (11.5-14.5) % Plt Count (140-400) K/mcL MPV (9.4-12.4) fL Immature Gran % (0-4) % Seg Neutrophils % % Lymphocytes % % Monocytes % % Eosinophils % % Basophils % % Neutrophils # (1.6-8.9) K/mcL Lymphocytes # (0.6-4.6) K/mcL Monocytes # (0.0-1.3) K/mcL Eosinophils # (0.0-0.6) K/mcL Basophils # (0.0-0.2) K/mcL Platelet Estimate (Normal) Anisocytosis (Not Present) PT 30.5 H (9.4-12.1) Seconds INR 2.7 ABG pH (7.32-7.45) pH Units ABG pCO2 (35-45) mmHg ABG pO2 (85-104) mmHg ABG HCO3 (21-27) mEQ/L ABG Total CO2 (20-26) mEq/L ABG O2 Saturation (95-98) % ABG Base Excess (-2.0 to 3.0) mEq/L Respiration Rate Blood Gas Modality Inspired O2 % PEEP cm H2O Sodium 140 (136-145) mEq/L Potassium 4.2 D (3.5-4.5) mEq/L Chloride 102 (98-109) mEq/L Carbon Dioxide 29 (19-29) mEq/L BUN 68 H (7-20) mg/dL Creatinine 1.81 H (0.57-1.11) mg/dL Est GFR ( Amer) 33 L (> 60) Est GFR (Non-Af Amer) 27 L (> 60) BUN/Creatinine Ratio 38 H (6-26) Glucose 165 H (70-99) mg/dL POC Glucose (58-89) Calculated Osmolality 313 H (280-300) Calcium 9.2 (8.6-10.8) mg/dL Phosphorus (2.3-4.7) mg/dL Magnesium (1.6-2.6) mg/dL Blood Type O POSITIVE Antibody Screen NEGATIVE 04/23/16 Range/Units 06:18 WBC (4.3-11.1) K/mcL RBC (3.82-4.97) M/mcL Hgb (11.5-15.4) g/dL Hct (35.3-44.9) % MCV (83.0-100.0) fL MCH (28.0-33.3) pg MCHC (31.6-35.5) g/dL RDW (11.5-14.5) % Plt Count (140-400) K/mcL MPV (9.4-12.4) fL Immature Gran % (0-4) % Seg Neutrophils % % Lymphocytes % % Monocytes % % Eosinophils % % Basophils % % Neutrophils # (1.6-8.9) K/mcL Lymphocytes # (0.6-4.6) K/mcL Monocytes # (0.0-1.3) K/mcL Eosinophils # (0.0-0.6) K/mcL Basophils # (0.0-0.2) K/mcL Platelet Estimate (Normal) Anisocytosis (Not Present) PT (9.4-12.1) Seconds INR ABG pH (7.32-7.45) pH Units ABG pCO2 (35-45) mmHg ABG pO2 (85-104) mmHg ABG HCO3 (21-27) mEQ/L ABG Total CO2 (20-26) mEq/L ABG O2 Saturation (95-98) % ABG Base Excess (-2.0 to 3.0) mEq/L Respiration Rate Blood Gas Modality Inspired O2 % PEEP cm H2O Sodium (136-145) mEq/L Potassium (3.5-4.5) mEq/L Chloride (98-109) mEq/L Carbon Dioxide (19-29) mEq/L BUN (7-20) mg/dL Creatinine (0.57-1.11) mg/dL Est GFR ( Amer) (> 60) Est GFR (Non-Af Amer) (> 60) BUN/Creatinine Ratio (6-26) Glucose (70-99) mg/dL POC Glucose 182 H (58-89) Calculated Osmolality (280-300) Calcium (8.6-10.8) mg/dL Phosphorus (2.3-4.7) mg/dL Magnesium (1.6-2.6) mg/dL Blood Type Antibody Screen
[2016-04-23] MEDS ORDERED: *HR* Warfarin 5 MG TABLET PO ONE (18:00)
[2016-04-24] MEDS: Insulin LISPRO 300 UNITS/3 ML VIAL SQ SCH ×5 (00:20→20:31)
[2016-04-24] MEDS: Ipratropium/Albuterol Neb 3 ML IH SCH ×6 (00:30→20:46)
[2016-04-24 04:29] LABS: Hematocrit 27.6 % (35.3-44.9); Hemoglobin 8.4 g/dL (11.5-15.4); Immature Granulocytes % 1.5 % (0-4); Lymphocytes # 0.2 K/mcL (0.6-4.6); Lymphocytes % 2.7 %; Mean Corpuscular HGB Conc 30.4 g/dL (31.6-35.5); Mean Corpuscular Hemoglobin 26.6 pg (28.0-33.3); Mean Corpuscular Volume 87.3 fL (83.0-100.0); Monocytes # 0.1 K/mcL (0.0-1.3); Monocytes % 1.2 %; Neutrophils # 7.8 K/mcL (1.6-8.9); Platelet Count 147 K/mcL (140-400); Red Blood Count 3.16 M/mcL (3.82-4.97); Red Cell Distribution Width 15.9 % (11.5-14.5); Segmented Neutrophils % 94.6 %
[2016-04-24 04:37] LABS: INR 3.2; Prothrombin Time 35.2 Seconds (9.4-12.1)
[2016-04-24 05:34] LABS: Calcium 9.5 mg/dL (8.6-10.8); Potassium 4.4 mEq/L (3.5-4.5)
[2016-04-24] MEDS: FLUoxetine 20 MG CAPSULE PO SCH ×2 (08:36→20:34)
[2016-04-24] MEDS: Ascorbic Acid 500 MG TABLET PO SCH ×2 (08:36→20:34)
[2016-04-24] MEDS: Folic Acid 1 MG TABLET PO SCH (08:37)
[2016-04-24] MEDS: Pantoprazole 40 MG VIAL IVP SCH (08:37)
[2016-04-24] MEDS: methylPREDNISolone 125 MG/2 ML VIAL IVP SCH (08:38)
--- NOTE | 2016-04-24 12:40 | Discharge Summary ---
Date of Encounter: 04/27/16 Time of Encounter: 12:57 - Discharge Diagnosis (1) Acute and chronic respiratory failure Priority: Primary Status: Acute Qualifiers: Respiratory failure complication: hypoxia and hypercapnia Qualified Code(s) : J96.21 - Acute and chronic respiratory failure with hypoxia; J96.22 - Acute and chronic respiratory failure with hypercapnia (2) SON (acute kidney injury) Priority: Secondary Status: Resolved (3) COPD exacerbation Priority: Secondary Status: Acute (4) DVT prophylaxis Priority: Secondary Status: Acute (5) Hypotension Priority: Secondary Status: Chronic Qualifiers: Hypotension type: other hypotension type Qualified Code(s): I95.89 - Other hypotension (6) Atrial fibrillation Priority: Secondary Status: Chronic Qualifiers: Atrial fibrillation type: paroxysmal Qualified Code(s): I48.0 - Paroxysmal atrial fibrillation (7) Diabetes Priority: Secondary Status: Chronic Qualifiers: Diabetes mellitus type: other specified (including [place]) Diabetes mellitus complication status: with kidney complications Diabetes mellitus complication detail: with chronic kidney disease Diabetes mellitus bed bug exterminator insulin use: without bed bug exterminator use Chronic kidney disease stage: stage 3 (moderate) Qualified Code(s): 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; N18.3 - Chronic kidney disease, stage 3 (moderate) (8) H/O aortic valve replacement with tissue graft Priority: Secondary Status: Chronic (9) Chronic kidney disease, stage 3 Priority: Secondary Status: Chronic (10) AICD discharge Priority: Secondary Status: Acute (11) Atrial fibrillation with RVR Priority: Secondary Status: Acute (12) Ventricular tachycardia Priority: Secondary Status: Resolved - Discharge Medications Prescriptions: Amiodarone [Cordarone] 400 mg PO DAILY #30 tablet Levofloxacin [Levaquin] 500 mg PO Q48H #6 tablet Metoprolol [Lopressor] 12.5 mg PO BID #60 tablet Home Medications: Budesonide/Formoterol 160/4.5 [Symbicort] 2 puff IH BID PRN 01/30/15 [History] FLUoxetine HCl [Prozac] 20 mg PO BID 01/30/15 [History] Isosorbide MONOnitrate (24 HR) [Imdur] 30 mg PO DAILY 01/30/15 [History] Furosemide [Lasix] 40 mg PO QPM 08/11/15 [History] Furosemide [Lasix] 80 mg PO QAM 08/11/15 [History] Oxycodone HCl/Acetaminophen [Percocet 10-325 mg Tablet] 1 tab PO Q6H PRN [History] Ascorbic Acid [Vitamin C] 250 mg PO BID 30 Days 08/14/15 [Rx] Ferrous Sulfate 325 mg PO BIDWM #60 tablet 08/14/15 [Rx] Folic Acid 1 tab PO DAILY #30 tablet 08/16/15 [Rx] Allopurinol [Zyloprim 300 MG] 300 mg PO DAILY 01/12/16 [History] Potassium Chloride [K-Tab ER] 20 meq PO BID 01/12/16 [History] Ropinirole HCl [Requip] 2 mg PO BID 01/12/16 [History] Sacubitril/Valsartan [Entresto 24 mg-26 mg Tablet] 1 tab PO DAILY 01/12/16 [ History] Calcium Carbonate [Calcium] 1,500 mg PO BID 04/22/16 [History] Gabapentin [Neurontin] 300 mg PO HS 04/22/16 [History] Hydrocortisone Acetate [Anucort-Hc] 25 mg RC BID 04/22/16 [History] Ipratropium/Albuterol Neb [Duoneb] 3 ml IH Q6HR PRN 04/22/16 [History] Levothyroxine [Synthroid] 50 mcg PO DAILY 04/22/16 [History] Oxygen 1 each .ROUTE AD 04/22/16 [History] Ranitidine HCl [Acid Pediatric Surgeon] 150 mg PO BID 04/22/16 [History] Levofloxacin [Levaquin] 500 mg PO Q48H #6 tablet 04/24/16 [Rx] Warfarin [Coumadin] 5 mg PO DAILY #0 04/25/16 [Rx] Amiodarone [Cordarone] 400 mg PO DAILY #30 tablet 04/27/16 [Rx] Metoprolol [Lopressor] 12.5 mg PO BID #60 tablet 04/27/16 [Rx] Allergies/Adverse Reactions: Allergies albuterol Allergy (Verified 01/09/16 19:46) Drowsy Penicillins Allergy (Verified 01/09/16 19:46) Hives Sulfa (Sulfonamide Antibiotics) Allergy (Verified 01/09/16 19:46) Hives jello Adverse Reaction (Uncoded 01/09/16 19:46) Nausea Procedures/tests Complete & Pending: Procedures Performed prior 72 hours Category Date Time Status EV echocardiogram Routine Y 04/22/16 17:11 Completed Date of admission: 04/21/16 16:36 Primary care physician: Francisco Melgar Jr Consults: 04/21/16 16:45 Consult to Nurse Navigator [CONS] Routine Comment: 04/21/16 17:44 Consult to Nutrition [CONS] Routine Comment: WEIGHT LOSS. WEAKNESS. Consulting Provider: NUTRITION Reason for Dietary Consult: Supplemental Nutrition Consult to Pastoral Services [CONS] Routine Comment: Consult to Copy And Print Associate [CONS] Routine Reason for SW Consult: PATIENT IS CONFUSED. FAMILY REPORTS PATIENT HAS HOME HEALTH. RECENT FALL. USES WALKER. 04/22/16 14:54 Consult to Invasive Line Access Team [CONS] Routine Reason for Consult: Limited access Line Type: EPIV 04/22/16 15:30 Consult to Occupational Therapy [CONS] Routine Comment: Evaluate, develop and implement POC Consult to Physical Therapy [CONS] Routine Comment: Evaluate, develop and implement POC Discharging clinician: Delano Kraft Anticipated date of discharge: 04/25/16 - Patient Status Disposition: Home, Self-Care Condition: Good Functional capacity at discharge: uses cane/walker Overall status at discharge: patient is progressing back to baseline - Discharge Instructions Instructions: Metoprolol (By mouth), Amiodarone (By mouth), Levofloxacin (By mouth), Atrial Fibrillation (DC), Acute Respiratory Distress Syndrome (DC), Heart Healthy Diet (DC), Diabetes Mellitus Type 2 in Adults (DC), Chronic Obstructive Pulmonary Disease (DC) Follow Up With: Francisco Melgar Jr [Primary Care Provider] - 05/06/16 3:00 pm (YOUR APPOINTMENT FOR MAY 24, 2016 AT 1420 HAS BEEN CANCELLED) Shay Rivera CNP [Advanced Practice Nurse] - 05/15/16 9:00 am Additional Instructions: f/u with coumadin clinic Friday04/29/16 @ 8:30am. - Diet and Activity Activity: resume usual activities as tolerated, wear oxygen at all times Diet: diabetic diet, low salt diet Hospital course: Ms. Higginbotham is a 75 year old female patient who was admitted here with acute on chronic respiratory failure. She was diagnosed with acute exacerbation of COPD and was treated with intravenous steroids, O2 supplementation with BiPAP, intravenous steroids and antibiotics. She slowly improved with this treatment regimen and is now doing much better. She required BiPAP use initially and was evaluated for home BiPAP use. However she did not qualify on testing here. She developed a brief run of nonsustained ventricular tachycardia during her stay here and her AICD discharged. She was in atrial flutter/fibrillation prior to and after her A1c did discharged. She continued to receive inappropriately AICD discharges while she was having A. fib with RVR. Cardiology was consulted. Patient was started on amiodarone drip with improvement in her heart rate. Her AICD was interrogated and her parameters were changed to prevent further inappropriately AICD discharges. Cardiology also recommended she be placed back on low-dose of metoprolol. Patient was previously on this medication but had to be taken off it due to low blood pressure. She has been monitored closely here during the rest of her hospital stay and has had no further episodes of nonsustained ventricular tachycardia. Her heart rate has also been controlled. She is stable to be discharged home. She had been evaluated by physical therapy and recommended home health but patient wishes to go for outpatient physical therapy. She also had supratherapeutic INR likely due to Levaquin use. Her INR has since improved after her warfarin was held. She can now resume warfarin and lower dose. She will follow up with the Coumadin clinic on Friday04/29/16 to adjust dosage. - Time Spent with Patient Total time spent providing and/or coordinating discharge services: Greater than 30 minutes (45 min) - Constitutional Vitals: Temp Pulse Resp BP Pulse Ox 98 F 98 18 115/64 93 L 04/24/16 10:52 04/24/16 11:00 04/24/16 11:45 04/24/16 10:52 04/24/16 11:45 General appearance: Present: cooperative, A&O X 2, pleasant, no acute distress, obese - Respiratory Respiratory exam: Present: decreased breath sounds (Diminished bilaterally), prolonged expiratory phase. Absent: accessory muscle use, rales, rhonchi - Cardiovascular Cardiovascular exam: Present: irregular rhythm, RRR, +S1, +S2. Absent: diastolic murmur, gallop, rubs, systolic murmur - GI/Abdominal GI/Abdominal exam: Present: normal bowel sounds, soft, no peritoneal signs. Absent: distended, tenderness - Extremities Exam Extremities exam: Present: warm, radial pulses palpable and symetrical. Absent : calf tenderness, cyanotic, pedal edema - Neurological Exam Neurological exam: Present: CN II-XII intact, oriented X3, no focal deficits. Absent: facial droop, speech deficit - Attending Attestation This document has been at least partially created by [employer] recognition technology by Dr. Kraft. Errors in grammar, wording or other phrases may exist. If errors are found after the documentation is signed, they will be addressed individually in the addendum section of this document when appropriate.
--- NOTE | 2016-04-24 15:09 | Internal Med Progress Note ---
Date of Encounter: 04/24/16 Time of Encounter: 08:15 - Assessment and plan (1) Acute and chronic respiratory failure Current Visit: Yes Status: Acute Assessment and plan: Continue O2 supplementation. Wean steroids further. Continue nebulizer treatments. Attempted to qualify for BiPAP last night. Patient did desaturate for 4-1/2 minutes. And the test was stopped then. Qualifiers: Respiratory failure complication: hypoxia and hypercapnia Qualified Code(s) : J96.21 - Acute and chronic respiratory failure with hypoxia; J96.22 - Acute and chronic respiratory failure with hypercapnia (2) SON (acute kidney injury) Current Visit: No Status: Acute Assessment and plan: Renal function continues to improve. Creatinine 1.57 today. (3) COPD exacerbation Current Visit: Yes Status: Acute Assessment and plan: Continue nebulizer treatments. O2 supplementation. Taper Steroids. (4) DVT prophylaxis Current Visit: Yes Status: Acute Assessment and plan: Coumadin (5) Hypotension Current Visit: Yes Status: Resolved Qualifiers: Hypotension type: other hypotension type Qualified Code(s): I95.89 - Other hypotension (6) Atrial fibrillation Current Visit: Yes Status: Chronic Assessment and plan: Rate controlled. Anticoagulation with Coumadin Qualifiers: Atrial fibrillation type: paroxysmal Qualified Code(s): I48.0 - Paroxysmal atrial fibrillation (7) Diabetes Current Visit: Yes Status: Chronic Assessment and plan: Fairly controlled. 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 Creatinine 1.57 today. Will resume Lasix orally. - Subjective Interval history: Patient doing better today. Breathing status has improved. She denies any chest pain. Tremors are improving. No fever or chills reported overnight. - Constitutional Vitals: Temp Pulse Resp BP Pulse Ox 98 F 98 18 115/64 93 L 04/24/16 10:52 04/24/16 11:00 04/24/16 11:45 04/24/16 10:52 04/24/16 11:45 General appearance: Present: cooperative, A&O X 2, pleasant, no acute distress, obese, answers questions appropriately - Respiratory Respiratory exam: Present: decreased breath sounds (At both bases), prolonged expiratory phase. Absent: accessory muscle use, rales, rhonchi - GI/Abdominal GI/Abdominal exam: Present: normal bowel sounds, soft, no peritoneal signs. Absent: distended, tenderness - Extremities Exam Extremities exam: Present: warm, radial pulses palpable and symetrical. Absent : calf tenderness, cyanotic, pedal edema Internal Medicine: Result - Labs CBC & Chem 7: 04/24/16 04:05 04/24/16 04:44 Labs: Short CBC 04/24/16 Range/Units 04:05 WBC 8.3 (4.3-11.1) K/mcL Hgb 8.4 L (11.5-15.4) g/dL Hct 27.6 L (35.3-44.9) % Plt Count 147 (140-400) K/mcL Neutrophils # 7.8 (1.6-8.9) K/mcL BMP 04/24/16 04:44 Sodium 140 Potassium 4.4 Chloride 102 Carbon Dioxide 31 H BUN 57 H Creatinine 1.57 H Glucose 158 H Calcium 9.5 - ABG Interpretation ABG results: ABG ABG pH 7.44 pH Units (7.32-7.45) 04/23/16 05:14 ABG pCO2 52 mmHg (35-45) H 04/23/16 05:14 ABG pO2 68 mmHg (85-104) L 04/23/16 05:14 ABG O2 Saturation 94 % (95-98) L 04/23/16 05:14 PT/INR, D-dimer PT 35.2 Seconds (9.4-12.1) H 04/24/16 04:05 Consult Discharge Plan - Plan Instructions: Chronic Obstructive Pulmonary Disease (DC) Referrals: Francisco Melgar Jr [Primary Care Provider] - 05/06/16 3:00 pm (YOUR APPOINTMENT FOR MAY 24, 2016 AT 1420 HAS BEEN CANCELLED) Prescriptions: Levofloxacin [Levaquin] 500 mg PO Q48H #6 tablet PredniSONE [Prednisone] 10 mg PO DAILY 8 Days - Attending Attestation This document has been at least partially created by [employer] recognition technology by Dr. Kraft. Errors in grammar, wording or other phrases may exist. If errors are found after the documentation is signed, they will be addressed individually in the addendum section of this document when appropriate. Medical Decision Making - MDM Narrative Medical decision making narrative: Moderate risk for complications - Medical Records Medical records reviewed: Yes I reviewed the patient's medical records. - Lab Data Lab results reviewed: Yes I reviewed the patient's lab results. Result diagrams: 04/24/16 04:05 04/24/16 04:44 Lab Results 04/21/16 04/21/16 04/21/16 Range/Units 17:39 20:58 21:01 WBC (4.3-11.1) K/mcL RBC (3.82-4.97) M/mcL Hgb (11.5-15.4) g/dL Hct (35.3-44.9) % MCV (83.0-100.0) fL MCH (28.0-33.3) pg MCHC (31.6-35.5) g/dL RDW (11.5-14.5) % Plt Count (140-400) K/mcL MPV (9.4-12.4) fL Immature Gran % (0-4) % Seg Neutrophils % % Lymphocytes % % Monocytes % % Eosinophils % % Basophils % % Neutrophils # (1.6-8.9) K/mcL Lymphocytes # (0.6-4.6) K/mcL Monocytes # (0.0-1.3) K/mcL Eosinophils # (0.0-0.6) K/mcL Basophils # (0.0-0.2) K/mcL Platelet Estimate (Normal) Anisocytosis (Not Present) PT (9.4-12.1) Seconds INR ABG pH 7.26 L (7.32-7.45) pH Units ABG pCO2 81 H* (35-45) mmHg ABG pO2 137 H (85-104) mmHg ABG HCO3 36.3 H (21-27) mEQ/L ABG Total CO2 38.8 H (20-26) mEq/L ABG O2 Saturation 99 H (95-98) % ABG Base Excess 7.4 H (-2.0 to 3.0) mEq/L Respiration Rate Blood Gas Modality BIPAP Inspired O2 60 % PEEP cm H2O Sodium (136-145) mEq/L Potassium (3.5-4.5) mEq/L Chloride (98-109) mEq/L Carbon Dioxide (19-29) mEq/L BUN (7-20) mg/dL Creatinine (0.57-1.11) mg/dL Est GFR ( Amer) (> 60) Est GFR (Non-Af Amer) (> 60) BUN/Creatinine Ratio (6-26) Glucose (70-99) mg/dL POC Glucose 192 H 192 H (58-89) Calculated Osmolality (280-300) Calcium (8.6-10.8) mg/dL Phosphorus (2.3-4.7) mg/dL Magnesium (1.6-2.6) mg/dL Specimen Rejected Blood Type Antibody Screen 04/22/16 04/22/16 04/22/16 Range/Units 04:30 05:06 05:24 WBC 4.4 (4.3-11.1) K/mcL RBC 3.02 L (3.82-4.97) M/mcL Hgb 8.0 L (11.5-15.4) g/dL Hct 27.3 L (35.3-44.9) % MCV 90.4 (83.0-100.0) fL MCH 26.5 L (28.0-33.3) pg MCHC 29.3 L (31.6-35.5) g/dL RDW 15.1 H (11.5-14.5) % Plt Count 143 (140-400) K/mcL MPV 10.6 (9.4-12.4) fL Immature Gran % 1.1 (0-4) % Seg Neutrophils % 93.9 % Lymphocytes % 4.3 % Monocytes % 0.7 % Eosinophils % 0.0 % Basophils % 0.0 % Neutrophils # 4.1 (1.6-8.9) K/mcL Lymphocytes # 0.2 L (0.6-4.6) K/mcL Monocytes # 0.0 (0.0-1.3) K/mcL Eosinophils # 0.0 (0.0-0.6) K/mcL Basophils # 0.0 (0.0-0.2) K/mcL Platelet Estimate Normal (Normal) Anisocytosis 1+ A (Not Present) PT (9.4-12.1) Seconds INR ABG pH 7.31 L (7.32-7.45) pH Units ABG pCO2 70 H* (35-45) mmHg ABG pO2 92 (85-104) mmHg ABG HCO3 35.2 H (21-27) mEQ/L ABG Total CO2 37.3 H (20-26) mEq/L ABG O2 Saturation 96 (95-98) % ABG Base Excess 7.7 H (-2.0 to 3.0) mEq/L Respiration Rate Blood Gas Modality BIPAP Inspired O2 40 % PEEP cm H2O Sodium (136-145) mEq/L Potassium (3.5-4.5) mEq/L Chloride (98-109) mEq/L Carbon Dioxide (19-29) mEq/L BUN (7-20) mg/dL Creatinine (0.57-1.11) mg/dL Est GFR ( Amer) (> 60) Est GFR (Non-Af Amer) (> 60) BUN/Creatinine Ratio (6-26) Glucose (70-99) mg/dL POC Glucose 140 H (58-89) Calculated Osmolality (280-300) Calcium (8.6-10.8) mg/dL Phosphorus (2.3-4.7) mg/dL Magnesium (1.6-2.6) mg/dL Specimen Rejected Blood Type Antibody Screen 04/22/16 04/22/16 04/22/16 Range/Units 05:24 05:24 11:56 WBC (4.3-11.1) K/mcL RBC (3.82-4.97) M/mcL Hgb (11.5-15.4) g/dL Hct (35.3-44.9) % MCV (83.0-100.0) fL MCH (28.0-33.3) pg MCHC (31.6-35.5) g/dL RDW (11.5-14.5) % Plt Count (140-400) K/mcL MPV (9.4-12.4) fL Immature Gran % (0-4) % Seg Neutrophils % % Lymphocytes % % Monocytes % % Eosinophils % % Basophils % % Neutrophils # (1.6-8.9) K/mcL Lymphocytes # (0.6-4.6) K/mcL Monocytes # (0.0-1.3) K/mcL Eosinophils # (0.0-0.6) K/mcL Basophils # (0.0-0.2) K/mcL Platelet Estimate (Normal) Anisocytosis (Not Present) PT 31.4 H (9.4-12.1) Seconds INR 2.8 ABG pH (7.32-7.45) pH Units ABG pCO2 (35-45) mmHg ABG pO2 (85-104) mmHg ABG HCO3 (21-27) mEQ/L ABG Total CO2 (20-26) mEq/L ABG O2 Saturation (95-98) % ABG Base Excess (-2.0 to 3.0) mEq/L Respiration Rate Blood Gas Modality Inspired O2 % PEEP cm H2O Sodium 138 (136-145) mEq/L Potassium 5.3 H (3.5-4.5) mEq/L Chloride 102 (98-109) mEq/L Carbon Dioxide 28 (19-29) mEq/L BUN 76 H (7-20) mg/dL Creatinine 2.61 H (0.57-1.11) mg/dL Est GFR ( Amer) 22 L (> 60) Est GFR (Non-Af Amer) 18 L (> 60) BUN/Creatinine Ratio 29 H (6-26) Glucose 140 H (70-99) mg/dL POC Glucose 277 H (58-89) Calculated Osmolality 311 H (280-300) Calcium 8.4 L (8.6-10.8) mg/dL Phosphorus 5.1 H (2.3-4.7) mg/dL Magnesium 2.3 (1.6-2.6) mg/dL Specimen Rejected Blood Type Antibody Screen 04/22/16 04/23/16 04/23/16 Range/Units 18:29 05:14 06:00 WBC 11.3 H D (4.3-11.1) K/mcL RBC 2.92 L (3.82-4.97) M/mcL Hgb 7.9 L (11.5-15.4) g/dL Hct 25.4 L (35.3-44.9) % MCV 87.0 (83.0-100.0) fL MCH 27.1 L (28.0-33.3) pg MCHC 31.1 L (31.6-35.5) g/dL RDW 15.5 H (11.5-14.5) % Plt Count 136 L (140-400) K/mcL MPV 10.3 (9.4-12.4) fL Immature Gran % 0.7 (0-4) % Seg Neutrophils % 94.8 % Lymphocytes % 2.1 % Monocytes % 2.3 % Eosinophils % 0.0 % Basophils % 0.1 % Neutrophils # 10.7 H (1.6-8.9) K/mcL Lymphocytes # 0.2 L (0.6-4.6) K/mcL Monocytes # 0.3 (0.0-1.3) K/mcL Eosinophils # 0.0 (0.0-0.6) K/mcL Basophils # 0.0 (0.0-0.2) K/mcL Platelet Estimate (Normal) Anisocytosis (Not Present) PT (9.4-12.1) Seconds INR ABG pH 7.44 (7.32-7.45) pH Units ABG pCO2 52 H (35-45) mmHg ABG pO2 68 L (85-104) mmHg ABG HCO3 35.3 H (21-27) mEQ/L ABG Total CO2 36.9 H (20-26) mEq/L ABG O2 Saturation 94 L (95-98) % ABG Base Excess 10.0 H (-2.0 to 3.0) mEq/L Respiration Rate 18 Blood Gas Modality BIPAP Inspired O2 35 % PEEP 8 cm H2O Sodium (136-145) mEq/L Potassium (3.5-4.5) mEq/L Chloride (98-109) mEq/L Carbon Dioxide (19-29) mEq/L BUN (7-20) mg/dL Creatinine (0.57-1.11) mg/dL Est GFR ( Amer) (> 60) Est GFR (Non-Af Amer) (> 60) BUN/Creatinine Ratio (6-26) Glucose (70-99) mg/dL POC Glucose 259 H (58-89) Calculated Osmolality (280-300) Calcium (8.6-10.8) mg/dL Phosphorus (2.3-4.7) mg/dL Magnesium (1.6-2.6) mg/dL Specimen Rejected Blood Type Antibody Screen 04/23/16 04/23/16 04/23/16 Range/Units 06:00 06:00 06:00 WBC (4.3-11.1) K/mcL RBC (3.82-4.97) M/mcL Hgb (11.5-15.4) g/dL Hct (35.3-44.9) % MCV (83.0-100.0) fL MCH (28.0-33.3) pg MCHC (31.6-35.5) g/dL RDW (11.5-14.5) % Plt Count (140-400) K/mcL MPV (9.4-12.4) fL Immature Gran % (0-4) % Seg Neutrophils % % Lymphocytes % % Monocytes % % Eosinophils % % Basophils % % Neutrophils # (1.6-8.9) K/mcL Lymphocytes # (0.6-4.6) K/mcL Monocytes # (0.0-1.3) K/mcL Eosinophils # (0.0-0.6) K/mcL Basophils # (0.0-0.2) K/mcL Platelet Estimate (Normal) Anisocytosis (Not Present) PT 30.5 H (9.4-12.1) Seconds INR 2.7 ABG pH (7.32-7.45) pH Units ABG pCO2 (35-45) mmHg ABG pO2 (85-104) mmHg ABG HCO3 (21-27) mEQ/L ABG Total CO2 (20-26) mEq/L ABG O2 Saturation (95-98) % ABG Base Excess (-2.0 to 3.0) mEq/L Respiration Rate Blood Gas Modality Inspired O2 % PEEP cm H2O Sodium 140 (136-145) mEq/L Potassium 4.2 D (3.5-4.5) mEq/L Chloride 102 (98-109) mEq/L Carbon Dioxide 29 (19-29) mEq/L BUN 68 H (7-20) mg/dL Creatinine 1.81 H (0.57-1.11) mg/dL Est GFR ( Amer) 33 L (> 60) Est GFR (Non-Af Amer) 27 L (> 60) BUN/Creatinine Ratio 38 H (6-26) Glucose 165 H (70-99) mg/dL POC Glucose (58-89) Calculated Osmolality 313 H (280-300) Calcium 9.2 (8.6-10.8) mg/dL Phosphorus (2.3-4.7) mg/dL Magnesium (1.6-2.6) mg/dL Specimen Rejected Blood Type O POSITIVE Antibody Screen NEGATIVE 04/23/16 04/23/16 04/23/16 Range/Units 06:18 11:41 16:30 WBC (4.3-11.1) K/mcL RBC (3.82-4.97) M/mcL Hgb (11.5-15.4) g/dL Hct (35.3-44.9) % MCV (83.0-100.0) fL MCH (28.0-33.3) pg MCHC (31.6-35.5) g/dL RDW (11.5-14.5) % Plt Count (140-400) K/mcL MPV (9.4-12.4) fL Immature Gran % (0-4) % Seg Neutrophils % % Lymphocytes % % Monocytes % % Eosinophils % % Basophils % % Neutrophils # (1.6-8.9) K/mcL Lymphocytes # (0.6-4.6) K/mcL Monocytes # (0.0-1.3) K/mcL Eosinophils # (0.0-0.6) K/mcL Basophils # (0.0-0.2) K/mcL Platelet Estimate (Normal) Anisocytosis (Not Present) PT (9.4-12.1) Seconds INR ABG pH (7.32-7.45) pH Units ABG pCO2 (35-45) mmHg ABG pO2 (85-104) mmHg ABG HCO3 (21-27) mEQ/L ABG Total CO2 (20-26) mEq/L ABG O2 Saturation (95-98) % ABG Base Excess (-2.0 to 3.0) mEq/L Respiration Rate Blood Gas Modality Inspired O2 % PEEP cm H2O Sodium (136-145) mEq/L Potassium (3.5-4.5) mEq/L Chloride (98-109) mEq/L Carbon Dioxide (19-29) mEq/L BUN (7-20) mg/dL Creatinine (0.57-1.11) mg/dL Est GFR ( Amer) (> 60) Est GFR (Non-Af Amer) (> 60) BUN/Creatinine Ratio (6-26) Glucose (70-99) mg/dL POC Glucose 182 H 164 H 171 H (58-89) Calculated Osmolality (280-300) Calcium (8.6-10.8) mg/dL Phosphorus (2.3-4.7) mg/dL Magnesium (1.6-2.6) mg/dL Specimen Rejected Blood Type Antibody Screen 04/24/16 04/24/16 04/24/16 Range/Units 01:24 04:05 04:05 WBC 8.3 (4.3-11.1) K/mcL RBC 3.16 L (3.82-4.97) M/mcL Hgb 8.4 L (11.5-15.4) g/dL Hct 27.6 L (35.3-44.9) % MCV 87.3 (83.0-100.0) fL MCH 26.6 L (28.0-33.3) pg MCHC 30.4 L (31.6-35.5) g/dL RDW 15.9 H (11.5-14.5) % Plt Count 147 (140-400) K/mcL MPV 11.0 (9.4-12.4) fL Immature Gran % 1.5 (0-4) % Seg Neutrophils % 94.6 % Lymphocytes % 2.7 % Monocytes % 1.2 % Eosinophils % 0.0 % Basophils % 0.0 % Neutrophils # 7.8 (1.6-8.9) K/mcL Lymphocytes # 0.2 L (0.6-4.6) K/mcL Monocytes # 0.1 (0.0-1.3) K/mcL Eosinophils # 0.0 (0.0-0.6) K/mcL Basophils # 0.0 (0.0-0.2) K/mcL Platelet Estimate (Normal) Anisocytosis (Not Present) PT 35.2 H (9.4-12.1) Seconds INR 3.2 ABG pH (7.32-7.45) pH Units ABG pCO2 (35-45) mmHg ABG pO2 (85-104) mmHg ABG HCO3 (21-27) mEQ/L ABG Total CO2 (20-26) mEq/L ABG O2 Saturation (95-98) % ABG Base Excess (-2.0 to 3.0) mEq/L Respiration Rate Blood Gas Modality Inspired O2 % PEEP cm H2O Sodium (136-145) mEq/L Potassium (3.5-4.5) mEq/L Chloride (98-109) mEq/L Carbon Dioxide (19-29) mEq/L BUN (7-20) mg/dL Creatinine (0.57-1.11) mg/dL Est GFR ( Amer) (> 60) Est GFR (Non-Af Amer) (> 60) BUN/Creatinine Ratio (6-26) Glucose (70-99) mg/dL POC Glucose 159 H (58-89) Calculated Osmolality (280-300) Calcium (8.6-10.8) mg/dL Phosphorus (2.3-4.7) mg/dL Magnesium (1.6-2.6) mg/dL Specimen Rejected Blood Type Antibody Screen 04/24/16 04/24/16 04/24/16 Range/Units 04:05 04:44 05:28 WBC (4.3-11.1) K/mcL RBC (3.82-4.97) M/mcL Hgb (11.5-15.4) g/dL Hct (35.3-44.9) % MCV (83.0-100.0) fL MCH (28.0-33.3) pg MCHC (31.6-35.5) g/dL RDW (11.5-14.5) % Plt Count (140-400) K/mcL MPV (9.4-12.4) fL Immature Gran % (0-4) % Seg Neutrophils % % Lymphocytes % % Monocytes % % Eosinophils % % Basophils % % Neutrophils # (1.6-8.9) K/mcL Lymphocytes # (0.6-4.6) K/mcL Monocytes # (0.0-1.3) K/mcL Eosinophils # (0.0-0.6) K/mcL Basophils # (0.0-0.2) K/mcL Platelet Estimate (Normal) Anisocytosis (Not Present) PT (9.4-12.1) Seconds INR ABG pH (7.32-7.45) pH Units ABG pCO2 (35-45) mmHg ABG pO2 (85-104) mmHg ABG HCO3 (21-27) mEQ/L ABG Total CO2 (20-26) mEq/L ABG O2 Saturation (95-98) % ABG Base Excess (-2.0 to 3.0) mEq/L Respiration Rate Blood Gas Modality Inspired O2 % PEEP cm H2O Sodium 140 (136-145) mEq/L Potassium 4.4 (3.5-4.5) mEq/L Chloride 102 (98-109) mEq/L Carbon Dioxide 31 H (19-29) mEq/L BUN 57 H (7-20) mg/dL Creatinine 1.57 H (0.57-1.11) mg/dL Est GFR ( Amer) 39 L (> 60) Est GFR (Non-Af Amer) 32 L (> 60) BUN/Creatinine Ratio 36 H (6-26) Glucose 158 H (70-99) mg/dL POC Glucose 174 H (58-89) Calculated Osmolality 309 H (280-300) Calcium 9.5 (8.6-10.8) mg/dL Phosphorus (2.3-4.7) mg/dL Magnesium (1.6-2.6) mg/dL Specimen Rejected Hemolyzed Blood Type Antibody Screen
[2016-04-24] MEDS: Furosemide 40 MG TABLET PO SCH (17:13)
[2016-04-24] MEDS ORDERED: *HR* Warfarin 3 MG TABLET PO ONE (18:00)
[2016-04-25] MEDS: Ipratropium/Albuterol Neb 3 ML IH SCH ×4 (00:39→11:54)
[2016-04-25 06:02] LABS: INR 4.6
[2016-04-25] MEDS: Insulin LISPRO 300 UNITS/3 ML VIAL SQ SCH ×4 (08:30→20:00)
[2016-04-25] MEDS: Folic Acid 1 MG TABLET PO SCH (08:33)
[2016-04-25] MEDS: FLUoxetine 20 MG CAPSULE PO SCH ×2 (08:33→20:00)
[2016-04-25] MEDS: Pantoprazole 40 MG VIAL IVP SCH (08:33)
[2016-04-25] MEDS: Ascorbic Acid 500 MG TABLET PO SCH ×2 (08:33→20:00)
[2016-04-25] MEDS: Furosemide 40 MG TABLET PO SCH ×2 (08:34→17:38)
[2016-04-25] MEDS ORDERED: 0.9 % Sodium Chloride 500 ML IVC ONE (12:50)
[2016-04-25] MEDS ORDERED: Amiodarone Premix 150 MG/100 ML BAG IVPB ONE ×2 (13:23→13:41)
[2016-04-25] MEDS ORDERED: Amiodarone Premix 360 MG/200 ML BAG IVC ONE ×2 (13:25→13:41)
[2016-04-25 13:27] LABS: Calcium 9.7 mg/dL (8.6-10.8); Magnesium 1.9 mg/dL (1.6-2.6); Phosphorous 2.1 mg/dL (2.3-4.7); Potassium 3.5 mEq/L (3.5-4.5)
[2016-04-25] MEDS ORDERED: *HR* FentaNYL (PF) 100 MCG/2 ML VIAL IV ONE (13:29)
--- NOTE | 2016-04-25 13:48 | Internal Med Progress Note ---
Date of Encounter: 04/25/16 Time of Encounter: 13:48 - Assessment and plan (1) Ventricular tachycardia Current Visit: Yes Status: Acute Assessment and plan: Patient having ventricular tachyarrhythmia intermittently with rapid AICD discharge. Cardiology consulted. Patient started on amiodarone drip. Will monitor closely. Follow cardiology recommendations. Trend troponins. Blood pressure remains normal. (2) Acute and chronic respiratory failure Current Visit: Yes Status: Acute Assessment and plan: Improved. Continue O2 supplementation. Patient did not qualify for home BiPAP use on testing done overnight. We will not prescribe home BiPAP. Qualifiers: Respiratory failure complication: hypoxia and hypercapnia Qualified Code(s) : J96.21 - Acute and chronic respiratory failure with hypoxia; J96.22 - Acute and chronic respiratory failure with hypercapnia (3) SON (acute kidney injury) Current Visit: No Status: Resolved (4) COPD exacerbation Current Visit: Yes Status: Acute Assessment and plan: Improved. Continue nebulizer treatments as needed. (5) DVT prophylaxis Current Visit: Yes Status: Acute Assessment and plan: Anticoagulated with Coumadin. INR is supratherapeutic. We will hold Coumadin dosage for now. Pharmacy managing Coumadin dosage. (6) Hypotension Current Visit: Yes Status: Resolved Qualifiers: Hypotension type: other hypotension type Qualified Code(s): I95.89 - Other hypotension (7) Atrial fibrillation Current Visit: Yes Status: Chronic Assessment and plan: With rapid ventricular rate. Patient started on amiodarone. Consulted cardiology. Will follow recommendations. Qualifiers: Atrial fibrillation type: paroxysmal Qualified Code(s): I48.0 - Paroxysmal atrial fibrillation (8) Diabetes Current Visit: Yes Status: Chronic Assessment and plan: Well-controlled. 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 (11) AICD discharge Current Visit: Yes Status: Acute Assessment and plan: Consulted cardiology for management. Continue telemetry. Continue close monitoring - Subjective Interval history: patient was doing well this morning and discharge was planned. However, at 12: 40 PM, patient went into a ventricular tachycardia rhythm and her AICD discharged. Patient was in rapid A. fib/flutter for EKG done soon afterwards. Initially Cardizem drip was ordered to control her heart rate but before this was even started, patient had multiple AICD discharges rapidly soon after. Patient was immediately started on amiodarone with improvement in her heart rate. Cardiology was consulted. Patient is currently on amiodarone drip. Her AICD has been interrogated and we will follow up on the results. We will continue to closely monitor the patient with telemetry. Patient was apparently previously on metoprolol but was taken off it due to low blood pressure. She has not been on any rate controlling medication during her stay here. Magnesium, potassium and calcium levels are within normal limits. - Constitutional Vitals: Temp Pulse Resp BP Pulse Ox 97.9 F 101 18 119/71 97 04/25/16 11:51 04/25/16 12:00 04/25/16 11:54 04/25/16 11:51 04/25/16 11:54 General appearance: Present: cooperative, A&O X 3, pleasant, obese, severe distress, answers questions appropriately - Respiratory Respiratory exam: Present: decreased breath sounds (Diminished bilaterally), prolonged expiratory phase. Absent: accessory muscle use, rales, rhonchi, wheezes - Cardiovascular Cardiovascular exam: Present: irregular rhythm, +S1, +S2, tachycardia. Absent: diastolic murmur, gallop, rubs, systolic murmur - Extremities Exam Extremities exam: Present: warm, radial pulses palpable and symetrical. Absent : calf tenderness, cyanotic, pedal edema - Neurological Exam Neurological exam: Present: CN II-XII intact, oriented X3, no focal deficits, strengths equal and symetr throughout. Absent: facial droop, speech deficit Internal Medicine: Result - Labs CBC & Chem 7: 04/24/16 04:05 04/25/16 13:03 Labs: BMP 04/25/16 13:03 Sodium 146 H Potassium 3.5 Chloride 102 Carbon Dioxide 36 H BUN 47 H D Creatinine 1.47 H Glucose 119 H Calcium 9.7 Cardiac Enzymes 04/25/16 Range/Units 13:04 Troponin I 0.05 H* (0-0.03) ng/mL - ABG Interpretation ABG results: ABG ABG pH 7.44 pH Units (7.32-7.45) 04/23/16 05:14 ABG pCO2 52 mmHg (35-45) H 04/23/16 05:14 ABG pO2 68 mmHg (85-104) L 04/23/16 05:14 ABG O2 Saturation 94 % (95-98) L 04/23/16 05:14 PT/INR, D-dimer PT 52.0 Seconds (9.4-12.1) H* 04/25/16 05:07 Consult Discharge Plan - Plan Instructions: Atrial Fibrillation (DC), Acute Respiratory Distress Syndrome (DC ), 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 Referrals: Francisco Melgar Jr [Primary Care Provider] - 05/06/16 3:00 pm (YOUR APPOINTMENT FOR MAY 24, 2016 AT 1420 HAS BEEN CANCELLED) Prescriptions: Levofloxacin [Levaquin] 500 mg PO Q48H #6 tablet PredniSONE [Prednisone] 10 mg PO DAILY 8 Days - Attending Attestation This document has been at least partially created by ooma recognition technology by Dr. Kraft. Errors in grammar, wording or other phrases may exist. If errors are found after the documentation is signed, they will be addressed individually in the addendum section of this document when appropriate. Critical Care Time Critical Care Time: Yes Total Critical Care Time: 45 Attestation: This patient has a high probability of sudden, clinically significant deterioration, which requires the highest level of physician preparedness to intervene urgently. I managed/supervised life or organ supporting interventions that required frequent physician assessment. I devoted my full attention to the direct care of this patient for the amount of time indicated above.
--- NOTE | 2016-04-25 14:14 | Cardiology Consult Note ---
<KimKalen chang R - Last Filed: 04/25/16 14:26> Date of Encounter: 04/25/16 Time of Encounter: 14:10 Assessment and Plan (1) AICD discharge Current Visit: Yes Status: Acute Inappropriately shocked for A-Fib RVR rate 200s. Amio bolus given and HR improved to 150s. Will load with IV Amio. Start low dose BB for A-Fib--BP would not tolerate in the past, but current systolic pressure >100. Echo 04/22/15 EF improved to 55%. Recheck electrolytes. Will interrogate device and have settings checked to make sure they are appropriate. (2) Atrial fibrillation with RVR Current Visit: Yes Status: Acute RVR with rates as high as >200 bpm. Bolus of IV Amio given and will load with IV Amio. HR improved after bolus to 150s. Will also start low dose BB in attempt to rate control. Continue to monitor tele. Anticoagulated on Coumadin--INR currently supratherapeutic at 4.6. Consult to pharmacy to manage while inpt. (3) S/P AVR (aortic valve replacement) Current Visit: Yes Status: Chronic Re-do AVR in 2012 at [facility]. [facility] in 2010 minimal disease. Echo during this admission shows valve is well seated, functioning properly. (4) Elevated troponin Current Visit: Yes Status: Acute 0.05--borderline s/p ICD shock. Nondiagnostic for ACS. Minimal disease on [facility] in 2010. Discussion w patient/family: The assessment and plan as outlined above was discussed with the patient and/or family members who expressed understanding and agreement. All questions were answered. Thank you for involving us in the care of your patient. Please call with any questions. I will discuss all the above with Dr. Lorenzo and make changes as necessary. History of Present Illness Consult date: 04/25/16 Requesting physician: Delano Kraft Consult reason: ICD firing Chief complaint: ICD fire History of present illness: Ms. Higginbotham is a 75 year old female with history of NICMP, previously EF of 30% s/ p ICD--now EF has improved to 55% when checked during this hospital stay, COPD ( on 2 L home oxygen), diabetes, history of breast cancer, aortic valve replaced, GI Bleed, A-Fib on Coumadin, brought to the ER by squad because of altered mental status and difficulty breathing for 3 days prior to admission. She was diagnosed with respiratory failure and COPD exacerbation, SON--she had improved and was planned to be discharged today. Prior to discharge pt went into A-Fib with RVR, rates as high as 200s with NSVT and her ICD started inappropriately shocking her. Cardiology consulted--Amio bolus given, HR improved to 150s. Pt denies chest pain. Unable to give much more detail due to her current state of being terrified from receiving multiple shocks. Past Med Surg Social Fam HX - Past Medical History Medical history: CHF, COPD, diabetes, GI bleed, malignancy, valvular heart disease, other Psychiatric history: no psych history - Past Surgical History Surgical History: heart valve replacement, MADHAVI/BSO, other (tonsillectomy, ) - Social History Smoking Status: Former smoker Smokeless Tobacco Status: No Alcohol use: none Drug use: none - Family History Mother Family Member Ethnicity: Non- Living Status: Hx Family Cardiac Disorders: No Hx Family Respiratory Disorders: No Hx Family Cancer: Yes (breast cancer) Hx Family GI Disorders: No Hx Family Endocrine Disorder: No Hx Family Neuromuscular Disorders: No Hx Family Neurologic Disorders: No Hx Family HEENT Disorders: No Hx Family Autoimmune Disorders: No Father Living Status: Hx Family Cardiac Disorders: No Hx Family Respiratory Disorders: No Hx Family Cancer: Yes Hx Family GI Disorders: No Hx Family Endocrine Disorder: No Hx Family Neuromuscular Disorders: No Hx Family Neurologic Disorders: No Hx Family HEENT Disorders: No Hx Family Autoimmune Disorders: No Medications and Allergies Budesonide/Formoterol 160/4.5 [Symbicort] 2 puff IH BID PRN 01/30/15 [History] FLUoxetine HCl [Prozac] 20 mg PO BID 01/30/15 [History] Isosorbide MONOnitrate (24 HR) [Imdur] 30 mg PO DAILY 01/30/15 [History] Furosemide [Lasix] 40 mg PO QPM 08/11/15 [History] Furosemide [Lasix] 80 mg PO QAM 08/11/15 [History] Oxycodone HCl/Acetaminophen [Percocet 10-325 mg Tablet] 1 tab PO Q6H PRN [History] Ascorbic Acid [Vitamin C] 250 mg PO BID 30 Days 08/14/15 [Rx] Ferrous Sulfate 325 mg PO BIDWM #60 tablet 08/14/15 [Rx] Folic Acid 1 tab PO DAILY #30 tablet 08/16/15 [Rx] Allopurinol [Zyloprim 300 MG] 300 mg PO DAILY 01/12/16 [History] Potassium Chloride [K-Tab ER] 20 meq PO BID 01/12/16 [History] Ropinirole HCl [Requip] 2 mg PO BID 01/12/16 [History] Sacubitril/Valsartan [Entresto 24 mg-26 mg Tablet] 1 tab PO DAILY 01/12/16 [ History] Calcium Carbonate [Calcium] 1,500 mg PO BID 04/22/16 [History] Gabapentin [Neurontin] 300 mg PO HS 04/22/16 [History] Hydrocortisone Acetate [Anucort-Hc] 25 mg RC BID 04/22/16 [History] Ipratropium/Albuterol Neb [Duoneb] 3 ml IH Q6HR PRN 04/22/16 [History] Levothyroxine [Synthroid] 50 mcg PO DAILY 04/22/16 [History] Metolazone [Zaroxolyn] 1.25 mg PO DAILY 04/22/16 [History] Oxygen 1 each .ROUTE AD 04/22/16 [History] Ranitidine HCl [Acid Legal Biller] 150 mg PO BID 04/22/16 [History] Levofloxacin [Levaquin] 500 mg PO Q48H #6 tablet 04/24/16 [Rx] PredniSONE [Prednisone] 10 mg PO DAILY 8 Days 04/24/16 [Rx] Warfarin [Coumadin] 5 mg PO DAILY #0 04/25/16 [Rx] Allergies albuterol Allergy (Verified 01/09/16 19:46) Drowsy Penicillins Allergy (Verified 01/09/16 19:46) Hives Sulfa (Sulfonamide Antibiotics) Allergy (Verified 01/09/16 19:46) Hives jello Adverse Reaction (Uncoded 01/09/16 19:46) Nausea All Systems Review: A 10-system review of systems was performed and is negative for pertinent findings except as documented above in the HPI. - Cardiovascular Cardiovascular: as per HPI, dyspnea at rest, dyspnea on exertion, palpitations - Respiratory Respiratory: dyspnea Physical Examination Vital Signs, Last 4 Hours Temp Pulse Resp BP Pulse Ox 04/25/16 12:00 101 04/25/16 11:54 18 97 04/25/16 11:51 97.9 F 101 18 119/71 97 Vital Signs Temp Pulse Resp BP Pulse Ox 04/25/16 12:00 101 04/25/16 11:54 18 97 04/25/16 11:51 97.9 F 101 18 119/71 97 04/25/16 08:00 103 04/25/16 07:56 16 97 04/25/16 07:42 98.3 F 94 18 118/82 94 L 04/25/16 04:48 18 99 04/25/16 04:13 98.2 F 98 18 118/67 99 04/25/16 00:39 18 98 04/25/16 00:19 98 18 98 04/25/16 00:14 98.2 F 96 18 105/52 98 04/24/16 23:45 97 04/24/16 21:07 98.7 F 111 18 124/63 100 04/24/16 20:46 20 100 04/24/16 16:33 16 100 04/24/16 15:38 98 F 102 16 120/78 100 04/24/16 15:00 105 Intake and Output 04/24/16 04/25/16 04/25/16 23:59 07:59 15:59 Intake Total 100 / 100 840 / 840 Output Total 150 / 150 750 / 750 600 / 600 Balance -150 / -150 -650 / -650 240 / 240 Intake: IV Fluids 100 / 100 600 / 600 0.9 % Sodium Chloride 500 500 / 500 ML @ 1875 mls/hr IVC . Q16M ONE Rx#:[id number] Amiodarone 150mg/100mL 100 / 100 Premix 150 mg In 100 ml @ 300 mls/hr IVPB ONCE ONE Rx#:[id number] Levaquin 500mg/100mL 500 100 / 100 mg In 100 ml @ 100 mls/hr IVPB Q48H [facility] Rx#: [id number] Oral 240 / 240 Output: Urine 150 / 150 750 / 750 600 / 600 Other: Meal Breakfast Percent of Meal Consumed 100% Stool Size Large Stool Color Brown Black # Voids 1 # Bowel Movements 1 Blood Glucose* 163 97 87 General: Conversant HEENT: Atraumatic, Normocephaly, Mucus Membranes Moist Neck: No JVD, Normal carotid pulses Cardiac: Other (irregularly irregular) Lungs: Other (diminished) Neuro: Alert and responsive, No focal deficits noted Abdomen: Soft, Non-Tender Skin: No rashes noted on visualized skin Musculoskeletal: No Chest Wall Tenderness Extremities: No Clubbing, No Cyanosis, No Edema, Normal Pulses Results 04/24/16 04:05 04/25/16 13:03 Lab Results 04/25/16 04/25/16 04/25/16 05:07 13:03 13:04 INR 4.6 H* Sodium 146 H Potassium 3.5 Chloride 102 Carbon Dioxide 36 H BUN 47 H D Creatinine 1.47 H Glucose 119 H Calcium 9.7 Magnesium 1.9 Troponin I 0.05 H* BMP 04/25/16 Range/Units 13:03 Sodium 146 H (136-145) mEq/L Potassium 3.5 (3.5-4.5) mEq/L Chloride 102 (98-109) mEq/L Carbon Dioxide 36 H (19-29) mEq/L BUN 47 H D (7-20) mg/dL Creatinine 1.47 H (0.57-1.11) mg/dL Glucose 119 H (70-99) mg/dL Calcium 9.7 (8.6-10.8) mg/dL Cardiac Enzymes 04/25/16 Range/Units 13:04 Troponin I 0.05 H* (0-0.03) ng/mL Active Medications Acetaminophen (Tylenol) 650 mg PO Q6HR PRN PRN Reason: Mild Pain (1-3) or fever>100.4 Stop: 10/21/16 16:45 Albuterol/Ipratropium (Duoneb) 3 ml IH [id number] PRN; Protocol PRN Reason: Shortness Of Breath/Wheezing Stop: 10/21/16 16:52 Ascorbic Acid (Vitamin C) 250 mg PO BID [facility] Stop: 10/22/16 21:01 Last Admin: 04/25/16 08:33 Dose: 250 mg Calcium Carbonate (Tums) 1,500 mg PO BID [facility] Stop: 10/22/16 21:01 Last Admin: 04/25/16 08:34 Dose: 1,500 mg Dextrose/Water (Dextrose 50% (Syg)) 25 ml IVP AD PRN PRN Reason: Hypoglycemia Stop: 10/21/16 16:54 Docusate Sodium (Colace) 100 mg PO BID PRN PRN Reason: Constipation Stop: 10/21/16 16:45 Ferrous Sulfate (Ferrous Sulfate) 325 mg PO BIDWM [facility] Stop: 10/22/16 17:01 Last Admin: 04/25/16 08:33 Dose: 325 mg Fluoxetine HCl (Prozac) 20 mg PO BID [facility] PRN Reason: Protocol Stop: 10/22/16 21:01 Last Admin: 04/25/16 08:33 Dose: 20 mg Folic Acid (Folic Acid) 1 mg PO DAILY [facility] Stop: 10/23/16 09:01 Last Admin: 04/25/16 08:33 Dose: 1 mg Furosemide (Lasix) 40 mg PO QPM [facility] Stop: 10/24/16 18:01 Last Admin: 04/24/16 17:13 Dose: 40 mg Furosemide (Lasix) 80 mg PO QAM [facility] Stop: 10/25/16 09:01 Last Admin: 04/25/16 08:34 Dose: 80 mg Glucagon (Glucagen) 1 mg IM ONCE PRN PRN Reason: Hypoglycemia Stop: 10/21/16 16:54 Glucose (Gluctose) 15 gm PO ONCE PRN PRN Reason: Hypoglycemia Stop: 10/21/16 16:54 Glucose (Gluctose) 30 gm PO ONCE PRN PRN Reason: Hypoglycemia Stop: 10/21/16 16:54 Dextrose (Dextrose 5%) 1,000 mls @ 100 mls/hr IV CONT PRN PRN Reason: HYPOGLYCEMIA Stop: 10/21/16 16:54 Levofloxacin/Dextrose (Levaquin 500mg/100ml) 500 mg in 100 mls @ 100 mls/hr IVPB Q48H [facility] Stop: 10/23/16 15:01 Last Infusion: 04/25/16 07:26 Dose: Infused Amiodarone HCl/Dextrose (Amiodarone 360mg/200ml Drip Premix) 360 mg in 200 mls @ 33.333 mls/hr IVC ONCE ONE PRN Reason: 1 MG/MIN Stop: 04/25/16 19:40 Last Admin: 04/25/16 13:35 Dose: 1 mg/min, 33.333 mls/hr Amiodarone HCl/Dextrose (Amiodarone 360mg/200ml Drip Premix) 360 mg in 200 mls @ 16.667 mls/hr IVC CONT [facility] PRN Reason: 0.5 MG/MIN Stop: 10/25/16 13:46 Insulin Human Lispro (Humalog) 0 units SQ TIDAC [facility] PRN Reason: Protocol Stop: 10/24/16 16:31 Last Admin: 04/25/16 12:03 Dose: Not Given Insulin Human Lispro (Humalog) 0 units SQ HS [facility] PRN Reason: Protocol Stop: 10/24/16 21:01 Last Admin: 04/24/16 20:31 Dose: Not Given Levothyroxine Sodium (Synthroid) 50 mcg PO DAILY [facility] Stop: 10/23/16 09:01 Last Admin: 04/25/16 08:33 Dose: 50 mcg Naloxone HCl (Narcan) 0.4 mg IVP Q2MIN PRN PRN Reason: Opioid Reversal Stop: 10/21/16 16:45 Ondansetron HCl (Zofran) 4 mg IVP Q8HR PRN PRN Reason: Nausea And Vomiting Stop: 10/21/16 16:45 Pantoprazole Sodium (Protonix) 40 mg IVP DAILY [facility] Stop: 10/22/16 09:01 Last Admin: 04/25/16 08:33 Dose: 40 mg Warfarin Sodium (Coumadin Perpt) 1 each PO DAILY@1800 PRN PRN Reason: SEE COMMENTS Stop: 10/21/16 18:01 - Imaging and Cardiology Chest Xray: report reviewed Echo: report reviewed (EF 55%,mild diastolic dysfunction, aortic valve well seated in LVOT, MG 22mmHg) Cardiac cath: report reviewed (2010 minimal CAD) - EKG Interpretation EKG results cardiology: personally reviewed (A-Fib RVR), other (A-Fib as high as 200s, shocked inappropriately, NSVT noted.) Consult Discharge Plan - Plan Instructions: Atrial Fibrillation (DC), Acute Respiratory Distress Syndrome (DC ), 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 Referrals: Francisco Melgar Jr [Primary Care Provider] - 05/06/16 3:00 pm (YOUR APPOINTMENT FOR MAY 24, 2016 AT 1420 HAS BEEN CANCELLED) Prescriptions: Levofloxacin [Levaquin] 500 mg PO Q48H #6 tablet PredniSONE [Prednisone] 10 mg PO DAILY 8 Days <Crissy Lorenzo - Last Filed: 04/25/16 16:49> Date of Encounter: 04/25/16 Assessment and Plan Discussion w patient/family: The assessment and plan as outlined above was discussed with the patient and/or family members who expressed understanding and agreement. All questions were answered. Thank you for involving us in the care of your patient. Please call with any questions. History of Present Illness History of present illness: Ms. Higginbotham is a 75 year old female All Systems Review: A 10-system review of systems was performed and is negative for pertinent findings except as documented above in the HPI. Physical Examination Vital Signs, Last 4 Hours Pulse Resp BP Pulse Ox 04/25/16 15:37 141 16 105/64 96 04/25/16 15:00 135 95/56 04/25/16 14:45 138 105/62 04/25/16 14:30 133 90/64 04/25/16 14:15 136 97/71 Results 04/24/16 04:05 04/25/16 13:03 Lab Results 04/25/16 04/25/16 04/25/16 05:07 13:03 13:04 INR 4.6 H* Sodium 146 H Potassium 3.5 Chloride 102 Carbon Dioxide 36 H BUN 47 H D Creatinine 1.47 H Glucose 119 H Calcium 9.7 Magnesium 1.9 Troponin I 0.05 H* - Attending Attestation I examined this patient and my medical decision-making was reviewed with the [employer]/PA/Advanced Practice Nurse/Resident Physician. I agree with the documented findings, disposition and treatment plan. Ms. Higginbotham has a history of NICM with normalization of EF as well as AF and other comorbidities. She has been treated for respiratory failure and COPD exacerbation. Today, she developed RVR while in AF with high heart rates and was inappropriately shocked several times. Amio bolus and drip were started and heart rates improved. Patient has not received any further device discharges. Her device has been interrogated and settings have been changed to avoid this in the future. She is also on a beta lauryn. We will re-evaluate her tomorrow. Of note, her INR is also supratherapeutic and Hgb is low. Will need to closely observe.
[2016-04-25] MEDS: levoFLOXacin 500 MG TABLET PO SCH (15:36)
[2016-04-25] MEDS: Amiodarone Premix 360 MG/200 ML BAG IVC SCH (19:39)
[2016-04-25] MEDS ORDERED: 0.9 % Sodium Chloride 500 ML ONE (21:36)
[2016-04-26 04:51] LABS: Calcium 8.2 mg/dL (8.6-10.8)
[2016-04-26 04:52] LABS: Eosinophils # 0.1 K/mcL (0.0-0.6); Hematocrit 29.3 % (35.3-44.9); Hemoglobin 8.7 g/dL (11.5-15.4); Immature Granulocytes % 1.1 % (0-4); Lymphocytes # 0.9 K/mcL (0.6-4.6); Lymphocytes % 9.8 %; Mean Corpuscular HGB Conc 29.7 g/dL (31.6-35.5); Mean Corpuscular Hemoglobin 26.3 pg (28.0-33.3); Mean Corpuscular Volume 88.5 fL (83.0-100.0); Mean Platelet Volume 11.3 fL (9.4-12.4); Monocytes # 0.7 K/mcL (0.0-1.3); Monocytes % 7.1 %; Neutrophils # 7.5 K/mcL (1.6-8.9); Platelet Count 162 K/mcL (140-400); Red Blood Count 3.31 M/mcL (3.82-4.97); Red Cell Distribution Width 16.5 % (11.5-14.5)
[2016-04-26] MEDS: Amiodarone Premix 360 MG/200 ML BAG IVC SCH ×2 (07:30→20:47)
[2016-04-26] MEDS: Insulin LISPRO 300 UNITS/3 ML VIAL SQ SCH ×4 (08:36→20:52)
[2016-04-26] MEDS: levoFLOXacin 500 MG TABLET PO SCH (08:37)
[2016-04-26] MEDS: Folic Acid 1 MG TABLET PO SCH (08:37)
[2016-04-26] MEDS: Furosemide 40 MG TABLET PO SCH ×2 (08:37→17:13)
[2016-04-26] MEDS: FLUoxetine 20 MG CAPSULE PO SCH ×2 (08:37→20:46)
[2016-04-26] MEDS: Pantoprazole 40 MG VIAL IVP SCH (08:37)
[2016-04-26] MEDS: Ascorbic Acid 500 MG TABLET PO SCH ×2 (08:38→20:46)
--- NOTE | 2016-04-26 13:22 | Cardiology Progress Note ---
Date of Encounter: 04/26/16 Time of Encounter: 13:18 Assessment and Plan (1) AICD discharge Current Visit: Yes Status: Acute Inappropriately shocked 10 times for A-Fib RVR rate 200s. Amio bolus and IV amio started with improved--12 hour tele AVG HR 98, A-Fib. Will start PO Amiodarone in AM--400mg daily. Started low dose BB for A-Fib yesterday 25mg BID. Systolic BP 80s this AM. Will decrease BB to 12.5mg BID. Echo 04/22/15 EF improved to 55%. K 3.0--receiving replacement. (2) Atrial fibrillation with RVR Current Visit: Yes Status: Acute RVR with rates as high as >200 bpm. Bolus of IV Amio given and loading with IV Amio. HR improved--12 hour tele AVG HR 98. BP not tolerating Lopressor 25mg BID. Will reduce to 12.5mg BID. Anticoagulated on Coumadin--INR currently supratherapeutic at 4.0. Pharmacy managing. H&H currently stable. (3) S/P AVR (aortic valve replacement) Current Visit: Yes Status: Chronic Re-do AVR in 2013 at [facility]. [facility] in 2010 minimal disease. Echo during this admission shows valve is well seated, functioning properly. (4) Elevated troponin Current Visit: Yes Status: Acute 0.05--borderline s/p ICD shock. Nondiagnostic for ACS. Minimal disease on [facility] in 2010. Discussion w patient/family: The assessment and plan as outlined above was discussed with the patient and/or family members who expressed understanding and agreement. All questions were answered. Thank you for involving us in the care of your patient. Please call with any questions. I will discuss all the above with Dr. Lorenzo and make changes as necessary. Subjective Principal diagnosis: A-Fib RVR, device check. Interval history: Device interrogation yesterday revealed 10 ICD discharges for A-Fib with RVR-- inappropriate firing. Was started on Amio gtt and AVG HR now 98, A-Fib. ICD settings also adjusted. Pt denies any acute complaints this AM. BP 80s systolic at time of evaluation, but pt asymptomatic and denies dizziness or lightheadedness. Objective Vital Signs, Last 4 Hours Temp Pulse Resp BP Pulse Ox 04/26/16 11:25 98.6 F 93 18 90/47 97 04/26/16 11:13 98.6 F 93 18 90/47 97 Vital Signs Temp Pulse Resp BP Pulse Ox 04/26/16 11:25 98.6 F 93 18 90/47 97 04/26/16 11:13 98.6 F 93 18 90/47 97 04/26/16 07:45 98.1 F 106 18 106/63 98 04/26/16 07:24 98.1 F 106 18 106/63 98 04/26/16 06:00 101 18 106/67 97 04/26/16 05:00 92 90/41 04/26/16 04:14 104 16 91/54 97 04/26/16 03:47 98.3 F 103 14 104/59 96 04/26/16 03:00 89 84/59 04/26/16 02:10 99 16 85/56 99 04/26/16 01:00 92 18 109/92 99 04/26/16 00:01 95 18 86/60 100 04/25/16 23:07 102 16 98/60 97 04/25/16 22:24 105 18 99/64 98 04/25/16 21:07 103 18 97/54 98 04/25/16 19:52 98.5 F 88 16 92/57 98 04/25/16 19:32 97 04/25/16 18:25 102 100/89 97 04/25/16 17:30 119 16 98/77 97 04/25/16 16:33 98.3 F 107 16 86/61 97 04/25/16 16:00 115 04/25/16 15:37 141 16 105/64 96 04/25/16 15:00 135 95/56 04/25/16 14:45 138 105/62 04/25/16 14:30 133 90/64 04/25/16 14:15 136 97/71 Intake and Output 04/25/16 04/26/16 04/26/16 23:59 07:59 15:59 Intake Total 200 / 200 320 / 320 480 / 480 Output Total 800 / 800 325 / 325 600 / 600 Balance -600 / -600 -5 / -5 -120 / -120 Intake: IV Fluids 200 / 200 200 / 200 Amiodarone 360mg/200mL 200 / 200 200 / 200 Drip Premix 360 mg In 200 ml @ 0.5 MG/MIN 16.667 mls/hr IVC CONT [facility] Rx#: [id number] Oral 120 / 120 480 / 480 Output: Urine 800 / 800 325 / 325 600 / 600 Other: Meal Dinner Lunch Percent of Meal Consumed 10% 5% Stool Size Small Stool Consistency soft # Voids 1 Weight 91.4 kg Blood Glucose* 81 96 124 Patient Weight 04/26/16 23:59 Weight 91.4 kg General: Conversant, No Apparent Distress HEENT: Atraumatic, Normocephaly, Mucus Membranes Moist Neck: No JVD, Normal carotid pulses Cardiac: Other (irregularly irregular) Lungs: Normal Breath Sounds, No Wheeze, Rales, Rhonchi Neuro: Alert and responsive, No focal deficits noted Abdomen: Soft, Non-Tender Skin: No rashes noted on visualized skin Musculoskeletal: No Chest Wall Tenderness Extremities: No Clubbing, No Cyanosis, No Edema, Normal Pulses Results 04/26/16 04:30 04/26/16 04:30 Lab Results 04/25/16 04/25/16 04/26/16 13:03 13:04 04:30 WBC Hgb Hct Plt Count INR 4.0 Sodium 146 H Potassium 3.5 Chloride 102 Carbon Dioxide 36 H BUN 47 H D Creatinine 1.47 H Glucose 119 H Calcium 9.7 Magnesium 1.9 Troponin I 0.05 H* 04/26/16 04/26/16 04:30 04:30 WBC 9.3 Hgb 8.7 L Hct 29.3 L Plt Count 162 INR Sodium 145 Potassium 3.0 L Chloride 99 Carbon Dioxide 39 H BUN 35 H D Creatinine 1.22 H Glucose 95 Calcium 8.2 L D Magnesium Troponin I Short CBC 04/26/16 Range/Units 04:30 WBC 9.3 (4.3-11.1) K/mcL Hgb 8.7 L (11.5-15.4) g/dL Hct 29.3 L (35.3-44.9) % Plt Count 162 (140-400) K/mcL Neutrophils # 7.5 (1.6-8.9) K/mcL BMP 04/26/16 04/25/16 Range/Units 04:30 13:03 Sodium 145 146 H (136-145) mEq/L Potassium 3.0 L 3.5 (3.5-4.5) mEq/L Chloride 99 102 (98-109) mEq/L Carbon Dioxide 39 H 36 H (19-29) mEq/L BUN 35 H D 47 H D (7-20) mg/dL Creatinine 1.22 H 1.47 H (0.57-1.11) mg/dL Glucose 95 119 H (70-99) mg/dL Calcium 8.2 L D 9.7 (8.6-10.8) mg/dL Cardiac Enzymes 04/25/16 Range/Units 13:04 Troponin I 0.05 H* (0-0.03) ng/mL Active Medications Acetaminophen (Tylenol) 650 mg PO Q6HR PRN PRN Reason: Mild Pain (1-3) or fever>100.4 Stop: 10/21/16 16:45 Albuterol/Ipratropium (Duoneb) 3 ml IH [id number] PRN; Protocol PRN Reason: Shortness Of Breath/Wheezing Stop: 10/21/16 16:52 Amiodarone HCl (Cordarone) 400 mg PO DAILY [facility] Stop: 10/27/16 09:01 Ascorbic Acid (Vitamin C) 250 mg PO BID [facility] Stop: 10/22/16 21:01 Last Admin: 04/26/16 08:38 Dose: 250 mg Calcium Carbonate (Tums) 1,500 mg PO BID [facility] Stop: 10/22/16 21:01 Last Admin: 04/26/16 08:38 Dose: 1,500 mg Dextrose/Water (Dextrose 50% (Syg)) 25 ml IVP AD PRN PRN Reason: Hypoglycemia Stop: 10/21/16 16:54 Docusate Sodium (Colace) 100 mg PO BID PRN PRN Reason: Constipation Stop: 10/21/16 16:45 Ferrous Sulfate (Ferrous Sulfate) 325 mg PO BIDWM [facility] Stop: 10/22/16 17:01 Last Admin: 04/26/16 08:37 Dose: 325 mg Fluoxetine HCl (Prozac) 20 mg PO BID [facility] PRN Reason: Protocol Stop: 10/22/16 21:01 Last Admin: 04/26/16 08:37 Dose: 20 mg Folic Acid (Folic Acid) 1 mg PO DAILY [facility] Stop: 10/23/16 09:01 Last Admin: 04/26/16 08:37 Dose: 1 mg Furosemide (Lasix) 40 mg PO QPM [facility] Stop: 10/24/16 18:01 Last Admin: 04/25/16 17:38 Dose: 40 mg Furosemide (Lasix) 80 mg PO QAM [facility] Stop: 10/25/16 09:01 Last Admin: 04/26/16 08:37 Dose: 80 mg Glucagon (Glucagen) 1 mg IM ONCE PRN PRN Reason: Hypoglycemia Stop: 10/21/16 16:54 Glucose (Gluctose) 15 gm PO ONCE PRN PRN Reason: Hypoglycemia Stop: 10/21/16 16:54 Glucose (Gluctose) 30 gm PO ONCE PRN PRN Reason: Hypoglycemia Stop: 10/21/16 16:54 Dextrose (Dextrose 5%) 1,000 mls @ 100 mls/hr IV CONT PRN PRN Reason: HYPOGLYCEMIA Stop: 10/21/16 16:54 Amiodarone HCl/Dextrose (Amiodarone 360mg/200ml Drip Premix) 360 mg in 200 mls @ 16.667 mls/hr IVC CONT [facility] PRN Reason: 0.5 MG/MIN Stop: 10/25/16 13:46 Last Admin: 04/26/16 07:30 Dose: 0.5 mg/min, 16.67 mls/hr Insulin Human Lispro (Humalog) 0 units SQ TIDAC [facility] PRN Reason: Protocol Stop: 10/24/16 16:31 Last Admin: 04/26/16 11:19 Dose: Not Given Insulin Human Lispro (Humalog) 0 units SQ HS [facility] PRN Reason: Protocol Stop: 10/24/16 21:01 Last Admin: 04/25/16 20:00 Dose: Not Given Levofloxacin (Levaquin) 500 mg PO DAILY [facility] PRN Reason: Protocol Stop: 10/25/16 14:46 Last Admin: 04/26/16 08:37 Dose: 500 mg Levothyroxine Sodium (Synthroid) 50 mcg PO DAILY [facility] Stop: 10/23/16 09:01 Last Admin: 04/26/16 08:38 Dose: 50 mcg Metoprolol Tartrate (Lopressor) 12.5 mg PO BID [facility] Stop: 10/25/16 21:01 Naloxone HCl (Narcan) 0.4 mg IVP Q2MIN PRN PRN Reason: Opioid Reversal Stop: 10/21/16 16:45 Ondansetron HCl (Zofran) 4 mg IVP Q8HR PRN PRN Reason: Nausea And Vomiting Stop: 10/21/16 16:45 Pantoprazole Sodium (Protonix) 40 mg IVP DAILY [facility] Stop: 10/22/16 09:01 Last Admin: 04/26/16 08:37 Dose: 40 mg Potassium Chloride (Potassium Chloride) 40 meq PO Q4H [facility] Stop: 04/26/16 15:46 Last Admin: 04/26/16 11:19 Dose: 40 meq Warfarin Sodium (Coumadin Perpt) 1 each PO DAILY@1800 PRN PRN Reason: SEE COMMENTS Stop: 10/21/16 18:01 - Imaging and Cardiology Echo: report reviewed - EKG Interpretation EKG results cardiology: other (12 hour tele AVG HR 98, A-Fib.) Consult Discharge Plan - Plan Instructions: Atrial Fibrillation (DC), Acute Respiratory Distress Syndrome (DC ), 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 Referrals: Francisco Melgar Jr [Primary Care Provider] - 05/06/16 3:00 pm (YOUR APPOINTMENT FOR MAY 24, 2016 AT 1420 HAS BEEN CANCELLED) Shay Rivera CNP [Advanced Practice Nurse] - 05/15/16 9:00 am Prescriptions: Levofloxacin [Levaquin] 500 mg PO Q48H #6 tablet PredniSONE [Prednisone] 10 mg PO DAILY 8 Days
--- NOTE | 2016-04-26 16:03 | Internal Med Progress Note ---
Date of Encounter: 04/26/16 Time of Encounter: 08:00 - Assessment and plan (1) Ventricular tachycardia Current Visit: Yes Status: Resolved Assessment and plan: This is resolved. Patient not having any more episodes of nonsustained ventricular tachycardia. (2) Acute and chronic respiratory failure Current Visit: Yes Status: Acute Assessment and plan: Continue to supplementation via nasal cannula. Qualifiers: Respiratory failure complication: hypoxia and hypercapnia Qualified Code(s) : J96.21 - Acute and chronic respiratory failure with hypoxia; J96.22 - Acute and chronic respiratory failure with hypercapnia (3) SON (acute kidney injury) Current Visit: No Status: Resolved (4) COPD exacerbation Current Visit: Yes Status: Acute Assessment and plan: Continue nebs as needed. (5) DVT prophylaxis Current Visit: Yes Status: Acute (6) Hypotension Current Visit: Yes Status: Chronic Assessment and plan: Patient having relatively low blood pressure than usual. Likely due to use of metoprolol. Metoprolol dosage has been decreased with cardiology. Qualifiers: Hypotension type: other hypotension type Qualified Code(s): I95.89 - Other hypotension (7) Atrial fibrillation Current Visit: Yes Status: Chronic Assessment and plan: With rapid ventricular response. Heart rate has improved and is now well controlled. Improved with use of amiodarone. Cardiology recommends continuing amiodarone. Continue to monitor with telemetry. Metoprolol dosage has been decreased. On Coumadin. INR was supratherapeutic. Coumadin dosage is being adjusted by pharmacy. We will continue to monitor INR. Qualifiers: Atrial fibrillation type: paroxysmal Qualified Code(s): I48.0 - Paroxysmal atrial fibrillation (8) Diabetes Current Visit: Yes Status: Chronic Assessment and plan: Well-controlled blood sugars. 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 (11) AICD discharge Current Visit: Yes Status: Acute Assessment and plan: Inappropriate recurrent discharges yesterday. Cardiology has adjusted parameters. 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 Hemoglobin levels have been stable here. Qualifiers: Anemia type: other cause Other causes of anemia: chronic disease, kidney Qualified Code(s): N18.9 - Chronic kidney disease, unspecified; D63.1 - Anemia in chronic kidney disease - Subjective Interval history: patient was doing well this morning and discharge was planned. However, at 12: 40 PM, patient went into a ventricular tachycardia rhythm and her AICD discharged. Patient was in rapid A. fib/flutter for EKG done soon afterwards. Initially Cardizem drip was ordered to control her heart rate but before this was even started, patient had multiple AICD discharges rapidly soon after. Patient was immediately started on amiodarone with improvement in her heart rate. Cardiology was consulted. Patient is currently on amiodarone drip. Her AICD has been interrogated and we will follow up on the results. We will continue to closely monitor the patient with telemetry. Patient was apparently previously on metoprolol but was taken off it due to low blood pressure. She has not been on any rate controlling medication during her stay here. Magnesium, potassium and calcium levels are within normal limits. - Constitutional Vitals: Temp Pulse Resp BP Pulse Ox 98.6 F 93 18 90/47 97 04/26/16 11:25 04/26/16 11:25 04/26/16 11:25 04/26/16 11:25 04/26/16 11:25 General appearance: Present: cooperative, A&O X 3, pleasant, obese, severe distress, answers questions appropriately - Respiratory Respiratory exam: Present: prolonged expiratory phase. Absent: accessory muscle use, rales, rhonchi, wheezes - Cardiovascular Cardiovascular exam: Present: irregular rhythm, +S1, +S2. Absent: diastolic murmur, gallop, rubs, systolic murmur - Extremities Exam Extremities exam: Present: warm, radial pulses palpable and symetrical. Absent : calf tenderness, cyanotic, pedal edema - Neurological Exam Neurological exam: Present: CN II-XII intact, oriented X3, no focal deficits, strengths equal and symetr throughout. Absent: facial droop, speech deficit Internal Medicine: Result - Labs CBC & Chem 7: 04/26/16 04:30 04/26/16 04:30 Labs: Short CBC 04/26/16 Range/Units 04:30 WBC 9.3 (4.3-11.1) K/mcL Hgb 8.7 L (11.5-15.4) g/dL Hct 29.3 L (35.3-44.9) % Plt Count 162 (140-400) K/mcL Neutrophils # 7.5 (1.6-8.9) K/mcL BMP 04/26/16 04:30 Sodium 145 Potassium 3.0 L Chloride 99 Carbon Dioxide 39 H BUN 35 H D Creatinine 1.22 H Glucose 95 Calcium 8.2 L D - ABG Interpretation ABG results: ABG ABG pH 7.44 pH Units (7.32-7.45) 04/23/16 05:14 ABG pCO2 52 mmHg (35-45) H 04/23/16 05:14 ABG pO2 68 mmHg (85-104) L 04/23/16 05:14 ABG O2 Saturation 94 % (95-98) L 04/23/16 05:14 PT/INR, D-dimer PT 45.0 Seconds (9.4-12.1) H* 04/26/16 04:30 Consult Discharge Plan - Plan Instructions: Atrial Fibrillation (DC), Acute Respiratory Distress Syndrome (DC ), 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 Referrals: Francisco Melgar Jr [Primary Care Provider] - 05/06/16 3:00 pm (YOUR APPOINTMENT FOR MAY 24, 2016 AT 1420 HAS BEEN CANCELLED) Shay Rivera CNP [Advanced Practice Nurse] - 05/15/16 9:00 am Prescriptions: Levofloxacin [Levaquin] 500 mg PO Q48H #6 tablet PredniSONE [Prednisone] 10 mg PO DAILY 8 Days - Attending Attestation This document has been at least partially created by [employer] recognition technology by Dr. Kraft. Errors in grammar, wording or other phrases may exist. If errors are found after the documentation is signed, they will be addressed individually in the addendum section of this document when appropriate. Medical Decision Making - [facility] Narrative Medical decision making narrative: High risk for complications - Lab Data Lab results reviewed: Yes I reviewed the patient's lab results. Result diagrams: 04/26/16 04:30 04/26/16 04:30 Lab Results 04/21/16 04/21/16 04/21/16 Range/Units 17:39 20:58 21:01 WBC (4.3-11.1) K/mcL RBC (3.82-4.97) M/mcL Hgb (11.5-15.4) g/dL Hct (35.3-44.9) % MCV (83.0-100.0) fL MCH (28.0-33.3) pg MCHC (31.6-35.5) g/dL RDW (11.5-14.5) % Plt Count (140-400) K/mcL MPV (9.4-12.4) fL Immature Gran % (0-4) % Seg Neutrophils % % Lymphocytes % % Monocytes % % Eosinophils % % Basophils % % Neutrophils # (1.6-8.9) K/mcL Lymphocytes # (0.6-4.6) K/mcL Monocytes # (0.0-1.3) K/mcL Eosinophils # (0.0-0.6) K/mcL Basophils # (0.0-0.2) K/mcL Platelet Estimate (Normal) Anisocytosis (Not Present) PT (9.4-12.1) Seconds INR ABG pH 7.26 L (7.32-7.45) pH Units ABG pCO2 81 H* (35-45) mmHg ABG pO2 137 H (85-104) mmHg ABG HCO3 36.3 H (21-27) mEQ/L ABG Total CO2 38.8 H (20-26) mEq/L ABG O2 Saturation 99 H (95-98) % ABG Base Excess 7.4 H (-2.0 to 3.0) mEq/L Respiration Rate Blood Gas Modality BIPAP Inspired O2 60 % PEEP cm H2O Sodium (136-145) mEq/L Potassium (3.5-4.5) mEq/L Chloride (98-109) mEq/L Carbon Dioxide (19-29) mEq/L BUN (7-20) mg/dL Creatinine (0.57-1.11) mg/dL Est GFR ( Amer) (> 60) Est GFR (Non-Af Amer) (> 60) BUN/Creatinine Ratio (6-26) Glucose (70-99) mg/dL POC Glucose 192 H 192 H (58-89) Calculated Osmolality (280-300) Calcium (8.6-10.8) mg/dL Phosphorus (2.3-4.7) mg/dL Magnesium (1.6-2.6) mg/dL Troponin I (0-0.03) ng/mL Specimen Rejected Blood Type Antibody Screen 04/22/16 04/22/16 04/22/16 Range/Units 04:30 05:06 05:24 WBC 4.4 (4.3-11.1) K/mcL RBC 3.02 L (3.82-4.97) M/mcL Hgb 8.0 L (11.5-15.4) g/dL Hct 27.3 L (35.3-44.9) % MCV 90.4 (83.0-100.0) fL MCH 26.5 L (28.0-33.3) pg MCHC 29.3 L (31.6-35.5) g/dL RDW 15.1 H (11.5-14.5) % Plt Count 143 (140-400) K/mcL MPV 10.6 (9.4-12.4) fL Immature Gran % 1.1 (0-4) % Seg Neutrophils % 93.9 % Lymphocytes % 4.3 % Monocytes % 0.7 % Eosinophils % 0.0 % Basophils % 0.0 % Neutrophils # 4.1 (1.6-8.9) K/mcL Lymphocytes # 0.2 L (0.6-4.6) K/mcL Monocytes # 0.0 (0.0-1.3) K/mcL Eosinophils # 0.0 (0.0-0.6) K/mcL Basophils # 0.0 (0.0-0.2) K/mcL Platelet Estimate Normal (Normal) Anisocytosis 1+ A (Not Present) PT (9.4-12.1) Seconds INR ABG pH 7.31 L (7.32-7.45) pH Units ABG pCO2 70 H* (35-45) mmHg ABG pO2 92 (85-104) mmHg ABG HCO3 35.2 H (21-27) mEQ/L ABG Total CO2 37.3 H (20-26) mEq/L ABG O2 Saturation 96 (95-98) % ABG Base Excess 7.7 H (-2.0 to 3.0) mEq/L Respiration Rate Blood Gas Modality BIPAP Inspired O2 40 % PEEP cm H2O Sodium (136-145) mEq/L Potassium (3.5-4.5) mEq/L Chloride (98-109) mEq/L Carbon Dioxide (19-29) mEq/L BUN (7-20) mg/dL Creatinine (0.57-1.11) mg/dL Est GFR ( Amer) (> 60) Est GFR (Non-Af Amer) (> 60) BUN/Creatinine Ratio (6-26) Glucose (70-99) mg/dL POC Glucose 140 H (58-89) Calculated Osmolality (280-300) Calcium (8.6-10.8) mg/dL Phosphorus (2.3-4.7) mg/dL Magnesium (1.6-2.6) mg/dL Troponin I (0-0.03) ng/mL Specimen Rejected Blood Type Antibody Screen 04/22/16 04/22/16 04/22/16 Range/Units 05:24 05:24 11:56 WBC (4.3-11.1) K/mcL RBC (3.82-4.97) M/mcL Hgb (11.5-15.4) g/dL Hct (35.3-44.9) % MCV (83.0-100.0) fL MCH (28.0-33.3) pg MCHC (31.6-35.5) g/dL RDW (11.5-14.5) % Plt Count (140-400) K/mcL MPV (9.4-12.4) fL Immature Gran % (0-4) % Seg Neutrophils % % Lymphocytes % % Monocytes % % Eosinophils % % Basophils % % Neutrophils # (1.6-8.9) K/mcL Lymphocytes # (0.6-4.6) K/mcL Monocytes # (0.0-1.3) K/mcL Eosinophils # (0.0-0.6) K/mcL Basophils # (0.0-0.2) K/mcL Platelet Estimate (Normal) Anisocytosis (Not Present) PT 31.4 H (9.4-12.1) Seconds INR 2.8 ABG pH (7.32-7.45) pH Units ABG pCO2 (35-45) mmHg ABG pO2 (85-104) mmHg ABG HCO3 (21-27) mEQ/L ABG Total CO2 (20-26) mEq/L ABG O2 Saturation (95-98) % ABG Base Excess (-2.0 to 3.0) mEq/L Respiration Rate Blood Gas Modality Inspired O2 % PEEP cm H2O Sodium 138 (136-145) mEq/L Potassium 5.3 H (3.5-4.5) mEq/L Chloride 102 (98-109) mEq/L Carbon Dioxide 28 (19-29) mEq/L BUN 76 H (7-20) mg/dL Creatinine 2.61 H (0.57-1.11) mg/dL Est GFR ( Amer) 22 L (> 60) Est GFR (Non-Af Amer) 18 L (> 60) BUN/Creatinine Ratio 29 H (6-26) Glucose 140 H (70-99) mg/dL POC Glucose 277 H (58-89) Calculated Osmolality 311 H (280-300) Calcium 8.4 L (8.6-10.8) mg/dL Phosphorus 5.1 H (2.3-4.7) mg/dL Magnesium 2.3 (1.6-2.6) mg/dL Troponin I (0-0.03) ng/mL Specimen Rejected Blood Type Antibody Screen 04/22/16 04/23/16 04/23/16 Range/Units 18:29 05:14 06:00 WBC 11.3 H D (4.3-11.1) K/mcL RBC 2.92 L (3.82-4.97) M/mcL Hgb 7.9 L (11.5-15.4) g/dL Hct 25.4 L (35.3-44.9) % MCV 87.0 (83.0-100.0) fL MCH 27.1 L (28.0-33.3) pg MCHC 31.1 L (31.6-35.5) g/dL RDW 15.5 H (11.5-14.5) % Plt Count 136 L (140-400) K/mcL MPV 10.3 (9.4-12.4) fL Immature Gran % 0.7 (0-4) % Seg Neutrophils % 94.8 % Lymphocytes % 2.1 % Monocytes % 2.3 % Eosinophils % 0.0 % Basophils % 0.1 % Neutrophils # 10.7 H (1.6-8.9) K/mcL Lymphocytes # 0.2 L (0.6-4.6) K/mcL Monocytes # 0.3 (0.0-1.3) K/mcL Eosinophils # 0.0 (0.0-0.6) K/mcL Basophils # 0.0 (0.0-0.2) K/mcL Platelet Estimate (Normal) Anisocytosis (Not Present) PT (9.4-12.1) Seconds INR ABG pH 7.44 (7.32-7.45) pH Units ABG pCO2 52 H (35-45) mmHg ABG pO2 68 L (85-104) mmHg ABG HCO3 35.3 H (21-27) mEQ/L ABG Total CO2 36.9 H (20-26) mEq/L ABG O2 Saturation 94 L (95-98) % ABG Base Excess 10.0 H (-2.0 to 3.0) mEq/L Respiration Rate 18 Blood Gas Modality BIPAP Inspired O2 35 % PEEP 8 cm H2O Sodium (136-145) mEq/L Potassium (3.5-4.5) mEq/L Chloride (98-109) mEq/L Carbon Dioxide (19-29) mEq/L BUN (7-20) mg/dL Creatinine (0.57-1.11) mg/dL Est GFR ( Amer) (> 60) Est GFR (Non-Af Amer) (> 60) BUN/Creatinine Ratio (6-26) Glucose (70-99) mg/dL POC Glucose 259 H (58-89) Calculated Osmolality (280-300) Calcium (8.6-10.8) mg/dL Phosphorus (2.3-4.7) mg/dL Magnesium (1.6-2.6) mg/dL Troponin I (0-0.03) ng/mL Specimen Rejected Blood Type Antibody Screen 04/23/16 04/23/16 04/23/16 Range/Units 06:00 06:00 06:00 WBC (4.3-11.1) K/mcL RBC (3.82-4.97) M/mcL Hgb (11.5-15.4) g/dL Hct (35.3-44.9) % MCV (83.0-100.0) fL MCH (28.0-33.3) pg MCHC (31.6-35.5) g/dL RDW (11.5-14.5) % Plt Count (140-400) K/mcL MPV (9.4-12.4) fL Immature Gran % (0-4) % Seg Neutrophils % % Lymphocytes % % Monocytes % % Eosinophils % % Basophils % % Neutrophils # (1.6-8.9) K/mcL Lymphocytes # (0.6-4.6) K/mcL Monocytes # (0.0-1.3) K/mcL Eosinophils # (0.0-0.6) K/mcL Basophils # (0.0-0.2) K/mcL Platelet Estimate (Normal) Anisocytosis (Not Present) PT 30.5 H (9.4-12.1) Seconds INR 2.7 ABG pH (7.32-7.45) pH Units ABG pCO2 (35-45) mmHg ABG pO2 (85-104) mmHg ABG HCO3 (21-27) mEQ/L ABG Total CO2 (20-26) mEq/L ABG O2 Saturation (95-98) % ABG Base Excess (-2.0 to 3.0) mEq/L Respiration Rate Blood Gas Modality Inspired O2 % PEEP cm H2O Sodium 140 (136-145) mEq/L Potassium 4.2 D (3.5-4.5) mEq/L Chloride 102 (98-109) mEq/L Carbon Dioxide 29 (19-29) mEq/L BUN 68 H (7-20) mg/dL Creatinine 1.81 H (0.57-1.11) mg/dL Est GFR ( Amer) 33 L (> 60) Est GFR (Non-Af Amer) 27 L (> 60) BUN/Creatinine Ratio 38 H (6-26) Glucose 165 H (70-99) mg/dL POC Glucose (58-89) Calculated Osmolality 313 H (280-300) Calcium 9.2 (8.6-10.8) mg/dL Phosphorus (2.3-4.7) mg/dL Magnesium (1.6-2.6) mg/dL Troponin I (0-0.03) ng/mL Specimen Rejected Blood Type O POSITIVE Antibody Screen NEGATIVE 04/23/16 04/23/16 04/23/16 Range/Units 06:18 11:41 16:30 WBC (4.3-11.1) K/mcL RBC (3.82-4.97) M/mcL Hgb (11.5-15.4) g/dL Hct (35.3-44.9) % MCV (83.0-100.0) fL MCH (28.0-33.3) pg MCHC (31.6-35.5) g/dL RDW (11.5-14.5) % Plt Count (140-400) K/mcL MPV (9.4-12.4) fL Immature Gran % (0-4) % Seg Neutrophils % % Lymphocytes % % Monocytes % % Eosinophils % % Basophils % % Neutrophils # (1.6-8.9) K/mcL Lymphocytes # (0.6-4.6) K/mcL Monocytes # (0.0-1.3) K/mcL Eosinophils # (0.0-0.6) K/mcL Basophils # (0.0-0.2) K/mcL Platelet Estimate (Normal) Anisocytosis (Not Present) PT (9.4-12.1) Seconds INR ABG pH (7.32-7.45) pH Units ABG pCO2 (35-45) mmHg ABG pO2 (85-104) mmHg ABG HCO3 (21-27) mEQ/L ABG Total CO2 (20-26) mEq/L ABG O2 Saturation (95-98) % ABG Base Excess (-2.0 to 3.0) mEq/L Respiration Rate Blood Gas Modality Inspired O2 % PEEP cm H2O Sodium (136-145) mEq/L Potassium (3.5-4.5) mEq/L Chloride (98-109) mEq/L Carbon Dioxide (19-29) mEq/L BUN (7-20) mg/dL Creatinine (0.57-1.11) mg/dL Est GFR ( Amer) (> 60) Est GFR (Non-Af Amer) (> 60) BUN/Creatinine Ratio (6-26) Glucose (70-99) mg/dL POC Glucose 182 H 164 H 171 H (58-89) Calculated Osmolality (280-300) Calcium (8.6-10.8) mg/dL Phosphorus (2.3-4.7) mg/dL Magnesium (1.6-2.6) mg/dL Troponin I (0-0.03) ng/mL Specimen Rejected Blood Type Antibody Screen 04/24/16 04/24/16 04/24/16 Range/Units 01:24 04:05 04:05 WBC 8.3 (4.3-11.1) K/mcL RBC 3.16 L (3.82-4.97) M/mcL Hgb 8.4 L (11.5-15.4) g/dL Hct 27.6 L (35.3-44.9) % MCV 87.3 (83.0-100.0) fL MCH 26.6 L (28.0-33.3) pg MCHC 30.4 L (31.6-35.5) g/dL RDW 15.9 H (11.5-14.5) % Plt Count 147 (140-400) K/mcL MPV 11.0 (9.4-12.4) fL Immature Gran % 1.5 (0-4) % Seg Neutrophils % 94.6 % Lymphocytes % 2.7 % Monocytes % 1.2 % Eosinophils % 0.0 % Basophils % 0.0 % Neutrophils # 7.8 (1.6-8.9) K/mcL Lymphocytes # 0.2 L (0.6-4.6) K/mcL Monocytes # 0.1 (0.0-1.3) K/mcL Eosinophils # 0.0 (0.0-0.6) K/mcL Basophils # 0.0 (0.0-0.2) K/mcL Platelet Estimate (Normal) Anisocytosis (Not Present) PT 35.2 H (9.4-12.1) Seconds INR 3.2 ABG pH (7.32-7.45) pH Units ABG pCO2 (35-45) mmHg ABG pO2 (85-104) mmHg ABG HCO3 (21-27) mEQ/L ABG Total CO2 (20-26) mEq/L ABG O2 Saturation (95-98) % ABG Base Excess (-2.0 to 3.0) mEq/L Respiration Rate Blood Gas Modality Inspired O2 % PEEP cm H2O Sodium (136-145) mEq/L Potassium (3.5-4.5) mEq/L Chloride (98-109) mEq/L Carbon Dioxide (19-29) mEq/L BUN (7-20) mg/dL Creatinine (0.57-1.11) mg/dL Est GFR ( Amer) (> 60) Est GFR (Non-Af Amer) (> 60) BUN/Creatinine Ratio (6-26) Glucose (70-99) mg/dL POC Glucose 159 H (58-89) Calculated Osmolality (280-300) Calcium (8.6-10.8) mg/dL Phosphorus (2.3-4.7) mg/dL Magnesium (1.6-2.6) mg/dL Troponin I (0-0.03) ng/mL Specimen Rejected Blood Type Antibody Screen 04/24/16 04/24/16 04/24/16 Range/Units 04:05 04:44 05:28 WBC (4.3-11.1) K/mcL RBC (3.82-4.97) M/mcL Hgb (11.5-15.4) g/dL Hct (35.3-44.9) % MCV (83.0-100.0) fL MCH (28.0-33.3) pg MCHC (31.6-35.5) g/dL RDW (11.5-14.5) % Plt Count (140-400) K/mcL MPV (9.4-12.4) fL Immature Gran % (0-4) % Seg Neutrophils % % Lymphocytes % % Monocytes % % Eosinophils % % Basophils % % Neutrophils # (1.6-8.9) K/mcL Lymphocytes # (0.6-4.6) K/mcL Monocytes # (0.0-1.3) K/mcL Eosinophils # (0.0-0.6) K/mcL Basophils # (0.0-0.2) K/mcL Platelet Estimate (Normal) Anisocytosis (Not Present) PT (9.4-12.1) Seconds INR ABG pH (7.32-7.45) pH Units ABG pCO2 (35-45) mmHg ABG pO2 (85-104) mmHg ABG HCO3 (21-27) mEQ/L ABG Total CO2 (20-26) mEq/L ABG O2 Saturation (95-98) % ABG Base Excess (-2.0 to 3.0) mEq/L Respiration Rate Blood Gas Modality Inspired O2 % PEEP cm H2O Sodium 140 (136-145) mEq/L Potassium 4.4 (3.5-4.5) mEq/L Chloride 102 (98-109) mEq/L Carbon Dioxide 31 H (19-29) mEq/L BUN 57 H (7-20) mg/dL Creatinine 1.57 H (0.57-1.11) mg/dL Est GFR ( Amer) 39 L (> 60) Est GFR (Non-Af Amer) 32 L (> 60) BUN/Creatinine Ratio 36 H (6-26) Glucose 158 H (70-99) mg/dL POC Glucose 174 H (58-89) Calculated Osmolality 309 H (280-300) Calcium 9.5 (8.6-10.8) mg/dL Phosphorus (2.3-4.7) mg/dL Magnesium (1.6-2.6) mg/dL Troponin I (0-0.03) ng/mL Specimen Rejected Hemolyzed Blood Type Antibody Screen 04/24/16 04/24/16 04/24/16 Range/Units 07:27 10:55 15:37 WBC (4.3-11.1) K/mcL RBC (3.82-4.97) M/mcL Hgb (11.5-15.4) g/dL Hct (35.3-44.9) % MCV (83.0-100.0) fL MCH (28.0-33.3) pg MCHC (31.6-35.5) g/dL RDW (11.5-14.5) % Plt Count (140-400) K/mcL MPV (9.4-12.4) fL Immature Gran % (0-4) % Seg Neutrophils % % Lymphocytes % % Monocytes % % Eosinophils % % Basophils % % Neutrophils # (1.6-8.9) K/mcL Lymphocytes # (0.6-4.6) K/mcL Monocytes # (0.0-1.3) K/mcL Eosinophils # (0.0-0.6) K/mcL Basophils # (0.0-0.2) K/mcL Platelet Estimate (Normal) Anisocytosis (Not Present) PT (9.4-12.1) Seconds INR ABG pH (7.32-7.45) pH Units ABG pCO2 (35-45) mmHg ABG pO2 (85-104) mmHg ABG HCO3 (21-27) mEQ/L ABG Total CO2 (20-26) mEq/L ABG O2 Saturation (95-98) % ABG Base Excess (-2.0 to 3.0) mEq/L Respiration Rate Blood Gas Modality Inspired O2 % PEEP cm H2O Sodium (136-145) mEq/L Potassium (3.5-4.5) mEq/L Chloride (98-109) mEq/L Carbon Dioxide (19-29) mEq/L BUN (7-20) mg/dL Creatinine (0.57-1.11) mg/dL Est GFR ( Amer) (> 60) Est GFR (Non-Af Amer) (> 60) BUN/Creatinine Ratio (6-26) Glucose (70-99) mg/dL POC Glucose 142 H 232 H 193 H (58-89) Calculated Osmolality (280-300) Calcium (8.6-10.8) mg/dL Phosphorus (2.3-4.7) mg/dL Magnesium (1.6-2.6) mg/dL Troponin I (0-0.03) ng/mL Specimen Rejected Blood Type Antibody Screen 04/24/16 04/25/16 04/25/16 Range/Units 20:09 05:07 07:50 WBC (4.3-11.1) K/mcL RBC (3.82-4.97) M/mcL Hgb (11.5-15.4) g/dL Hct (35.3-44.9) % MCV (83.0-100.0) fL MCH (28.0-33.3) pg MCHC (31.6-35.5) g/dL RDW (11.5-14.5) % Plt Count (140-400) K/mcL MPV (9.4-12.4) fL Immature Gran % (0-4) % Seg Neutrophils % % Lymphocytes % % Monocytes % % Eosinophils % % Basophils % % Neutrophils # (1.6-8.9) K/mcL Lymphocytes # (0.6-4.6) K/mcL Monocytes # (0.0-1.3) K/mcL Eosinophils # (0.0-0.6) K/mcL Basophils # (0.0-0.2) K/mcL Platelet Estimate (Normal) Anisocytosis (Not Present) PT 52.0 H* (9.4-12.1) Seconds INR 4.6 H* ABG pH (7.32-7.45) pH Units ABG pCO2 (35-45) mmHg ABG pO2 (85-104) mmHg ABG HCO3 (21-27) mEQ/L ABG Total CO2 (20-26) mEq/L ABG O2 Saturation (95-98) % ABG Base Excess (-2.0 to 3.0) mEq/L Respiration Rate Blood Gas Modality Inspired O2 % PEEP cm H2O Sodium (136-145) mEq/L Potassium (3.5-4.5) mEq/L Chloride (98-109) mEq/L Carbon Dioxide (19-29) mEq/L BUN (7-20) mg/dL Creatinine (0.57-1.11) mg/dL Est GFR ( Amer) (> 60) Est GFR (Non-Af Amer) (> 60) BUN/Creatinine Ratio (6-26) Glucose (70-99) mg/dL POC Glucose 163 H 97 H (58-89) Calculated Osmolality (280-300) Calcium (8.6-10.8) mg/dL Phosphorus (2.3-4.7) mg/dL Magnesium (1.6-2.6) mg/dL Troponin I (0-0.03) ng/mL Specimen Rejected Blood Type Antibody Screen 04/25/16 04/25/16 04/25/16 Range/Units 11:53 13:03 13:04 WBC (4.3-11.1) K/mcL RBC (3.82-4.97) M/mcL Hgb (11.5-15.4) g/dL Hct (35.3-44.9) % MCV (83.0-100.0) fL MCH (28.0-33.3) pg MCHC (31.6-35.5) g/dL RDW (11.5-14.5) % Plt Count (140-400) K/mcL MPV (9.4-12.4) fL Immature Gran % (0-4) % Seg Neutrophils % % Lymphocytes % % Monocytes % % Eosinophils % % Basophils % % Neutrophils # (1.6-8.9) K/mcL Lymphocytes # (0.6-4.6) K/mcL Monocytes # (0.0-1.3) K/mcL Eosinophils # (0.0-0.6) K/mcL Basophils # (0.0-0.2) K/mcL Platelet Estimate (Normal) Anisocytosis (Not Present) PT (9.4-12.1) Seconds INR ABG pH (7.32-7.45) pH Units ABG pCO2 (35-45) mmHg ABG pO2 (85-104) mmHg ABG HCO3 (21-27) mEQ/L ABG Total CO2 (20-26) mEq/L ABG O2 Saturation (95-98) % ABG Base Excess (-2.0 to 3.0) mEq/L Respiration Rate Blood Gas Modality Inspired O2 % PEEP cm H2O Sodium 146 H (136-145) mEq/L Potassium 3.5 (3.5-4.5) mEq/L Chloride 102 (98-109) mEq/L Carbon Dioxide 36 H (19-29) mEq/L BUN 47 H D (7-20) mg/dL Creatinine 1.47 H (0.57-1.11) mg/dL Est GFR ( Amer) 42 L (> 60) Est GFR (Non-Af Amer) 34 L (> 60) BUN/Creatinine Ratio 32 H (6-26) Glucose 119 H (70-99) mg/dL POC Glucose 87 (58-89) Calculated Osmolality 315 H (280-300) Calcium 9.7 (8.6-10.8) mg/dL Phosphorus 2.1 L (2.3-4.7) mg/dL Magnesium 1.9 (1.6-2.6) mg/dL Troponin I 0.05 H* (0-0.03) ng/mL Specimen Rejected Blood Type Antibody Screen 04/25/16 04/25/16 04/26/16 Range/Units 16:36 20:00 04:30 WBC (4.3-11.1) K/mcL RBC (3.82-4.97) M/mcL Hgb (11.5-15.4) g/dL Hct (35.3-44.9) % MCV (83.0-100.0) fL MCH (28.0-33.3) pg MCHC (31.6-35.5) g/dL RDW (11.5-14.5) % Plt Count (140-400) K/mcL MPV (9.4-12.4) fL Immature Gran % (0-4) % Seg Neutrophils % % Lymphocytes % % Monocytes % % Eosinophils % % Basophils % % Neutrophils # (1.6-8.9) K/mcL Lymphocytes # (0.6-4.6) K/mcL Monocytes # (0.0-1.3) K/mcL Eosinophils # (0.0-0.6) K/mcL Basophils # (0.0-0.2) K/mcL Platelet Estimate (Normal) Anisocytosis (Not Present) PT 45.0 H* (9.4-12.1) Seconds INR 4.0 ABG pH (7.32-7.45) pH Units ABG pCO2 (35-45) mmHg ABG pO2 (85-104) mmHg ABG HCO3 (21-27) mEQ/L ABG Total CO2 (20-26) mEq/L ABG O2 Saturation (95-98) % ABG Base Excess (-2.0 to 3.0) mEq/L Respiration Rate Blood Gas Modality Inspired O2 % PEEP cm H2O Sodium (136-145) mEq/L Potassium (3.5-4.5) mEq/L Chloride (98-109) mEq/L Carbon Dioxide (19-29) mEq/L BUN (7-20) mg/dL Creatinine (0.57-1.11) mg/dL Est GFR ( Amer) (> 60) Est GFR (Non-Af Amer) (> 60) BUN/Creatinine Ratio (6-26) Glucose (70-99) mg/dL POC Glucose 155 H 81 (58-89) Calculated Osmolality (280-300) Calcium (8.6-10.8) mg/dL Phosphorus (2.3-4.7) mg/dL Magnesium (1.6-2.6) mg/dL Troponin I (0-0.03) ng/mL Specimen Rejected Blood Type Antibody Screen 04/26/16 04/26/16 Range/Units 04:30 04:30 WBC 9.3 (4.3-11.1) K/mcL RBC 3.31 L (3.82-4.97) M/mcL Hgb 8.7 L (11.5-15.4) g/dL Hct 29.3 L (35.3-44.9) % MCV 88.5 (83.0-100.0) fL MCH 26.3 L (28.0-33.3) pg MCHC 29.7 L (31.6-35.5) g/dL RDW 16.5 H (11.5-14.5) % Plt Count 162 (140-400) K/mcL MPV 11.3 (9.4-12.4) fL Immature Gran % 1.1 (0-4) % Seg Neutrophils % 81.0 % Lymphocytes % 9.8 % Monocytes % 7.1 % Eosinophils % 1.0 % Basophils % 0.0 % Neutrophils # 7.5 (1.6-8.9) K/mcL Lymphocytes # 0.9 (0.6-4.6) K/mcL Monocytes # 0.7 (0.0-1.3) K/mcL Eosinophils # 0.1 (0.0-0.6) K/mcL Basophils # 0.0 (0.0-0.2) K/mcL Platelet Estimate (Normal) Anisocytosis (Not Present) PT (9.4-12.1) Seconds INR ABG pH (7.32-7.45) pH Units ABG pCO2 (35-45) mmHg ABG pO2 (85-104) mmHg ABG HCO3 (21-27) mEQ/L ABG Total CO2 (20-26) mEq/L ABG O2 Saturation (95-98) % ABG Base Excess (-2.0 to 3.0) mEq/L Respiration Rate Blood Gas Modality Inspired O2 % PEEP cm H2O Sodium 145 (136-145) mEq/L Potassium 3.0 L (3.5-4.5) mEq/L Chloride 99 (98-109) mEq/L Carbon Dioxide 39 H (19-29) mEq/L BUN 35 H D (7-20) mg/dL Creatinine 1.22 H (0.57-1.11) mg/dL Est GFR ( Amer) 52 L (> 60) Est GFR (Non-Af Amer) 43 L (> 60) BUN/Creatinine Ratio 29 H (6-26) Glucose 95 (70-99) mg/dL POC Glucose (58-89) Calculated Osmolality 308 H (280-300) Calcium 8.2 L D (8.6-10.8) mg/dL Phosphorus (2.3-4.7) mg/dL Magnesium (1.6-2.6) mg/dL Troponin I (0-0.03) ng/mL Specimen Rejected Blood Type Antibody Screen
--- NOTE | 2016-04-26 16:27 | Electrocardiograph Report ---
[facility] Test Date: 2016-04-25 Pat Name: ZAFAR FOSTER Department: 110 Room: 2N14 Gender: F Phlebotomy Director: : 1940 Requested By: Delano Kraft Order Number: [id number] Reading MD: Juni Ramirez DO Measurements Intervals Davy Rate: 144 P: 242 MS: 142 QRS: -20 QRSD: 138 T: 60 QT: 251 QTc: 334 Interpretive Statements Probable atrial flutter PVCs or aberrant conduction IVCD Electronically Signed On 04-26-16 16:26:36 EST by Juni Ramirez DO
[2016-04-27 04:19] LABS: Eosinophils # 0.2 K/mcL (0.0-0.6); Eosinophils % 2.3 %; Hematocrit 28.9 % (35.3-44.9); Hemoglobin 8.7 g/dL (11.5-15.4); Immature Granulocytes % 1.4 % (0-4); Lymphocytes # 0.9 K/mcL (0.6-4.6); Lymphocytes % 9.8 %; Mean Corpuscular HGB Conc 30.1 g/dL (31.6-35.5); Mean Corpuscular Hemoglobin 26.8 pg (28.0-33.3); Mean Corpuscular Volume 88.9 fL (83.0-100.0); Mean Platelet Volume 10.7 fL (9.4-12.4); Monocytes # 0.6 K/mcL (0.0-1.3); Monocytes % 6.9 %; Neutrophils # 7.1 K/mcL (1.6-8.9); Platelet Count 129 K/mcL (140-400); Red Blood Count 3.25 M/mcL (3.82-4.97); Segmented Neutrophils % 79.6 %
[2016-04-27 04:24] LABS: INR 2.9; Prothrombin Time 32.7 Seconds (9.4-12.1)
[2016-04-27 04:32] LABS: Calcium 8.6 mg/dL (8.6-10.8); Potassium 3.6 mEq/L (3.5-4.5)
[2016-04-27] MEDS: Insulin LISPRO 300 UNITS/3 ML VIAL SQ SCH ×2 (08:04→11:51)
[2016-04-27] MEDS: Pantoprazole 40 MG VIAL IVP SCH (08:06)
[2016-04-27] MEDS: levoFLOXacin 500 MG TABLET PO SCH (08:06)
[2016-04-27] MEDS: FLUoxetine 20 MG CAPSULE PO SCH (08:06)
[2016-04-27] MEDS: Ascorbic Acid 500 MG TABLET PO SCH (08:07)
[2016-04-27] MEDS: Folic Acid 1 MG TABLET PO SCH (08:07)
[2016-04-27] MEDS: Furosemide 40 MG TABLET PO SCH (08:07)
[2016-04-27] MEDS ORDERED: *HR* Amiodarone 200 MG TABLET PO SCH (09:00)
[2016-04-27 11:13] VITALS: BP 86/50
--- NOTE | 2016-04-27 11:27 | Cardiology Progress Note ---
Date of Encounter: 04/27/16 Time of Encounter: 10:00 Assessment and Plan (1) AICD discharge Current Visit: Yes Status: Acute Patient's heart rates are much improved. Device setting have been changed. Patient will continue PO amiodarone and BB. I have sent a message to our office to have her follow up with Dr. Errol Perry. Echo this admission demonstrated normal LV and RV function. (2) Atrial fibrillation with RVR Current Visit: Yes Status: Acute Heart rates are much improved. She is anticoagulated on coumadin. Discussion w patient/family: The assessment and plan as outlined above was discussed with the patient and/or family members who expressed understanding and agreement. All questions were answered. Thank you for involving us in the care of your patient. No further testing is warranted. Patient will follow up with us as an outpatient. We will sign off. Please call with questions. Subjective Principal diagnosis: A-Fib RVR, device check. Interval history: No acute overnight events. Ms. Higginbotham is feeling good and is asking to go home. Objective Vital Signs, Last 4 Hours Temp Pulse Resp BP Pulse Ox 04/27/16 11:07 98.2 F 94 18 86/50 96 04/27/16 10:00 92 L 04/27/16 07:41 85 92 L General: Conversant, No Apparent Distress HEENT: Mucus Membranes Moist Neck: No JVD Cardiac: Normal S1 and S2, No Murmur, Other (irregularly irregular) Neuro: Alert and responsive, No focal deficits noted Abdomen: Soft, Other (bowel sounds present) Extremities: Other (no significant LE edema) Results 04/27/16 04:05 04/27/16 04:05 Lab Results 04/27/16 04/27/16 04/27/16 04:05 04:05 04:05 WBC 8.9 Hgb 8.7 L Hct 28.9 L Plt Count 129 L INR 2.9 Sodium 144 Potassium 3.6 Chloride 100 Carbon Dioxide 37 H BUN 35 H Creatinine 1.37 H Glucose 100 H Calcium 8.6 - EKG Interpretation EKG results cardiology: other (24h telemetry was reviewed; average HR 93 bpm with occasional isolated PVCs and couplets, no sustained dysrhythmia) - VTE Documentation of Mechanical Device: Intermittent pneumatic compression device Consult Discharge Plan - Plan Instructions: Atrial Fibrillation (DC), Acute Respiratory Distress Syndrome (DC ), 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 Referrals: Francisco Melgar Jr [Primary Care Provider] - 05/06/16 3:00 pm (YOUR APPOINTMENT FOR MAY 24, 2016 AT 1420 HAS BEEN CANCELLED) Shay Rivera CNP [Advanced Practice Nurse] - 05/15/16 9:00 am Prescriptions: Levofloxacin [Levaquin] 500 mg PO Q48H #6 tablet PredniSONE [Prednisone] 10 mg PO DAILY 8 Days
--- NOTE | 2016-04-27 14:53 | Event Note ---
Date of Encounter: 04/27/16 Time of Encounter: 14:52 Please refer to discharge summary started on 04/24/16.
[2016-04-27] MEDS ORDERED: *HR* Warfarin 5 MG TABLET PO ONE (18:15)
[2016-04-27] MEDS ORDERED: *HR* Warfarin 3 MG TABLET PO ONE (18:30)
== END 2016-04-27 14:05 | disposition home or self-care (01) | DRG 189 ==
LOC: EMEROO 12:04 → SUATTDRO 16:36 → 2NNU 16:36
PROVIDERS: ADMIT Internal Medicine; ATTEND Internal Medicine

== ENCOUNTER 2016-05-28 15:01 | Inpatient (IN) ==
[2016-05-28] MEDS ORDERED: methylPREDNISolone 125 MG/2 ML VIAL IVP ONE (15:11)
[2016-05-28] MEDS ORDERED: Ipratropium/Albuterol Neb 3 ML IH ONE (15:11)
--- NOTE | 2016-05-28 15:17 | Emergency Department Note ---
Disposition Clinical Impression: Acute exacerbation of chronic obstructive airways disease Anemia Qualifiers: Anemia type: unspecified type Qualified Code(s): D64.9 - Anemia, unspecified Disposition: Admitted As Inpatient Condition: Fair Referrals: NO,PCP [Primary Care Provider] - Forms: ED Satisfaction Letter Time of Disposition: 17:43 SOB HPI - General Chief Complaint: ED Shortness of Breath/Dyspnea Stated Complaint: SOB,weakness Time Seen by Provider: 05/28/16 15:07 Source: patient, EMS Limitations: no limitations Nursing Notes Reviewed: Yes Vital Signs Reviewed: Yes - History of Present Illness 75-year-old comes in with increasing shortness of breath with a history of COPD. She's had a congested cough and wheezing. Patient was seen at her eye doctor's today and did have her eyes dilated. Pt Subjective Complaint: shortness of breath, cough Onset (ago): hour(s) Context: recent illness Severity: moderate Improves with: nothing Worsens with: exertion Known history of: COPD Associated symptoms: Reports: cough Treatment prior to arrival: bronchodilator Cough present: Yes Cough Description: Involuntary Cough Frequency: Intermittent - Related Data Home Medications Medication Instructions Recorded Confirmed Budesonide/Formoterol 160/4.5 2 puff IH BID PRN 01/30/15 04/22/16 [Symbicort] FLUoxetine HCl [Prozac] 20 mg PO BID 01/30/15 04/22/16 Isosorbide MONOnitrate (24 HR) 30 mg PO DAILY 01/30/15 04/22/16 [Imdur] Furosemide [Lasix] 40 mg PO QPM 08/11/15 04/22/16 Furosemide [Lasix] 80 mg PO QAM 08/11/15 04/22/16 Oxycodone HCl/Acetaminophen 1 tab PO Q6H PRN 08/12/15 04/22/16 [Percocet 10-325 mg Tablet] Allopurinol [Zyloprim 300 MG] 300 mg PO DAILY 01/12/16 04/22/16 Potassium Chloride [K-Tab ER] 20 meq PO BID 01/12/16 04/22/16 Ropinirole HCl [Requip] 2 mg PO BID 01/12/16 04/22/16 Sacubitril/Valsartan [Entresto 24 1 tab PO DAILY 09/23/16 01/02/17 mg-26 mg Tablet] Calcium Carbonate [Calcium] 1,500 mg PO BID 04/22/16 04/22/16 Gabapentin [Neurontin] 300 mg PO HS 04/22/16 04/22/16 Hydrocortisone Acetate [Anucort-Hc] 25 mg RC BID 04/22/16 04/22/16 Ipratropium/Albuterol Neb [Duoneb] 3 ml IH Q6HR PRN 04/22/16 04/22/16 Levothyroxine [Synthroid] 50 mcg PO DAILY 04/22/16 04/22/16 Oxygen 1 each .ROUTE AD 04/22/16 04/22/16 Ranitidine HCl [Acid Blue Split Trimmer] 150 mg PO BID 04/22/16 04/22/16 Previous Rx's Medication Instructions Recorded Ascorbic Acid [Vitamin C] 250 mg PO BID 30 Days 08/14/15 Ferrous Sulfate 325 mg PO BIDWM #60 tablet 08/14/15 Folic Acid 1 tab PO DAILY #30 tablet 08/16/15 Levofloxacin [Levaquin] 500 mg PO Q48H #6 tablet 04/24/16 Warfarin [Coumadin] 5 mg PO DAILY #0 04/25/16 Amiodarone [Cordarone] 400 mg PO DAILY #30 tablet 04/27/16 Metoprolol [Lopressor] 12.5 mg PO BID #60 tablet 04/27/16 Allergies Allergy/AdvReac Type Severity Reaction Status Date / Time albuterol Allergy Drowsy Verified 01/09/16 19:46 Penicillins Allergy Hives Verified 01/09/16 19:46 Sulfa (Sulfonamide Allergy Hives Verified 01/09/16 19:46 Antibiotics) jello AdvReac Nausea Uncoded 01/09/16 19:46 Constitutional: Denies: fever, chills, weakness, weight change Eyes: Denies: eye pain, eye discharge, vision change ENT ED: Denies: ear pain, throat pain, dental pain, hearing loss, epistaxis, congestion, dysphagia Cardiovascular: Denies: chest pain, palpitations, dyspnea on exertion, edema, syncope Respiratory: Reports: cough, dyspnea, wheezes. Denies: hemoptysis, stridor Gastrointestinal: Denies: abdominal pain, nausea, vomiting, diarrhea, constipation, hematemesis, melena, hematochezia Genitourinary: Denies: dysuria, frequency, hematuria, discharge Musculoskeletal: Denies: back pain, neck pain, arthralgia, myalgia Integumentary: Denies: rash, abrasion, lesions Neurological: Denies: headache, weakness, numbness, paresthesias, confusion, abnormal gait, vertigo Psychiatric: Denies: anxiety, depression, suicidal thoughts, homicidal thoughts , auditory hallucinations, visual hallucinations Endocrine: Denies: fatigue Hematological/Lymphatic: Denies: easy bleeding, easy bruising Allergic/Immunologic: Denies: facial swelling, urticaria Past Medical History - Past Medical History Medical history: Reports: CHF, COPD, diabetes, GI bleed, malignancy, valvular heart disease, other Surgical history: Reports: heart valve replacement, MADHAVI/BSO, other ( tonsillectomy, ) Psychiatric history: Reports: no psych history COVERING MACHINE TENDER history: Reports: no COVERING MACHINE TENDER history - Social History Smoking Status: Former smoker Smokeless Tobacco Status: No Alcohol use: Reports: none Drug use: Reports: none Physical Exam - General Limitations: no limitations General appearance: alert - Head Head exam: atraumatic, normocephalic, normal inspection - Eye Eye exam: Present: normal appearance, PERRL, EOMI - ENT ENT exam: normal exam, normal oropharynx, mucous membranes moist - Neck Neck exam: Present: normal inspection, full ROM, trachea midline - Chest Chest inspection: Present: normal inspection, symmetric chest wall rise - Respiratory Respiratory exam: Present: wheezes, accessory muscle use, prolonged expiratory phase - Abdominal Exam Abdominal exam: Present: soft, Non-Tender. Absent: tenderness, distention, guarding, rebound, rigidity - Expanded Lower Extremity Exam Neurovascular/Tendon exam: Absent: motor deficit, sensory deficit, tendon deficit Gait: observed and normal - Back Exam Back exam: Present: normal inspection, full ROM. Absent: tenderness - Neurological Exam Neurological exam: Present: alert, oriented X3 - Psychiatric Psychiatric exam: Present: normal affect, normal mood - Skin Skin exam: Present: warm, dry, intact, normal color Course - Reevaluation(s) Reevaluation #1: This is a 75-year-old who has artificial heart valves on Coumadin whose had recurrent problems with anemia. Patient came in today because of shortness of breath she had diffuse wheezing has a history of COPD. She responded nicely to the breathing treatments but her lab work shows her hemoglobin 6.1. We will transfuse her and admit her for further evaluation. Time: 17:44 - Consultations Consultation #1: Discussed with , admit. Time: 17:43 Vital Signs Temperature 98.3 F 05/28/16 15:03 Pulse Rate 103 05/28/16 15:03 Respiratory Rate 18 05/28/16 15:03 Blood Pressure 84/51 05/28/16 15:03 O2 Sat by Pulse Oximetry 100 05/28/16 15:03 Temperature 98.3 F 05/28/16 15:03 Pulse Rate 101 05/28/16 17:29 Respiratory Rate 16 05/28/16 17:29 Blood Pressure 90/47 05/28/16 17:29 O2 Sat by Pulse Oximetry 98 05/28/16 17:29 Oxygen Delivery Oxygen Delivery Nasal Cannula Shortness of Breath/Dyspnea - Lab Data Lab results reviewed: Yes I reviewed the patient's lab results. Result diagrams: 05/28/16 15:08 05/28/16 15:08 Lab Results 05/28/16 05/28/16 05/28/16 Range/Units 15:08 15:08 15:08 WBC 6.4 (4.3-11.1) K/mcL RBC 2.49 L (3.82-4.97) M/mcL Hgb 6.1 L (11.5-15.4) g/dL Hct 22.4 L (35.3-44.9) % MCV 90.0 (83.0-100.0) fL MCH 24.5 L (28.0-33.3) pg MCHC 27.2 L (31.6-35.5) g/dL RDW 16.6 H (11.5-14.5) % Plt Count 153 (140-400) K/mcL MPV 9.8 (9.4-12.4) fL Immature Gran % 1.4 (0-4) % Seg Neutrophils % 80.8 % Lymphocytes % 7.8 % Monocytes % 9.1 % Eosinophils % 0.6 % Basophils % 0.3 % Neutrophils # 5.2 (1.6-8.9) K/mcL Lymphocytes # 0.5 L (0.6-4.6) K/mcL Monocytes # 0.6 (0.0-1.3) K/mcL Eosinophils # 0.0 (0.0-0.6) K/mcL Basophils # 0.0 (0.0-0.2) K/mcL Nucleated RBCs/100 WBC 0.5 H (0) /100 WBC Hypochromasia Present A (Not Present) PT (9.4-12.1) Seconds INR APTT (26.0-36.0) Seconds Sodium 141 (136-145) mEq/L Potassium 4.9 H (3.5-4.5) mEq/L Chloride 98 (98-109) mEq/L Carbon Dioxide 33 H (19-29) mEq/L BUN 32 H (7-20) mg/dL Creatinine 1.64 H (0.57-1.11) mg/dL Est GFR ( Amer) 37 L (> 60) Est GFR (Non-Af Amer) 30 L (> 60) BUN/Creatinine Ratio 20 (6-26) Glucose 156 H (70-99) mg/dL Calculated Osmolality 302 H (280-300) Lactic Acid 1.1 (0.5-2.2) mmol/L Calcium 9.3 (8.6-10.8) mg/dL Troponin I (0-0.03) ng/mL B-Natriuretic Peptide (0-100) pg/mL 05/28/16 05/28/16 05/28/16 Range/Units 15:08 15:08 15:48 WBC (4.3-11.1) K/mcL RBC (3.82-4.97) M/mcL Hgb (11.5-15.4) g/dL Hct (35.3-44.9) % MCV (83.0-100.0) fL MCH (28.0-33.3) pg MCHC (31.6-35.5) g/dL RDW (11.5-14.5) % Plt Count (140-400) K/mcL MPV (9.4-12.4) fL Immature Gran % (0-4) % Seg Neutrophils % % Lymphocytes % % Monocytes % % Eosinophils % % Basophils % % Neutrophils # (1.6-8.9) K/mcL Lymphocytes # (0.6-4.6) K/mcL Monocytes # (0.0-1.3) K/mcL Eosinophils # (0.0-0.6) K/mcL Basophils # (0.0-0.2) K/mcL Nucleated RBCs/100 WBC (0) /100 WBC Hypochromasia (Not Present) PT 43.4 H* (9.4-12.1) Seconds INR 3.9 APTT 41.5 H (26.0-36.0) Seconds Sodium (136-145) mEq/L Potassium (3.5-4.5) mEq/L Chloride (98-109) mEq/L Carbon Dioxide (19-29) mEq/L BUN (7-20) mg/dL Creatinine (0.57-1.11) mg/dL Est GFR ( Amer) (> 60) Est GFR (Non-Af Amer) (> 60) BUN/Creatinine Ratio (6-26) Glucose (70-99) mg/dL Calculated Osmolality (280-300) Lactic Acid (0.5-2.2) mmol/L Calcium (8.6-10.8) mg/dL Troponin I 0.01 (0-0.03) ng/mL B-Natriuretic Peptide 571 H (0-100) pg/mL - Radiology Data Radiology results reviewed: Yes I reviewed the patient's radiology results. Chest X-Ray 05/28/16 15:13 IMPRESSION: Stable chest x-ray with COPD, cardiomegaly and postthoracotomy changes. Suggestion of a small effusion on the right or pleural thickening. D/ / 05/28/2016 15:42:33 Crystal Major MD / bcarter Interpreting Provider: Crystal Major MD - EKG Data EKG attestation: Yes I reviewed and interpreted this EKG. EKG shows normal: Reports: sinus rhythm Rate: Reports: tachycardia Rhythm: Reports: NSR Cornelius/QRS: Reports: IVCD Interpretation: Reports: nonspecific ST-T wave changes
[2016-05-28 15:58] LABS: Nucleated Red Blood Cells 0.5 /100 WBC (0)
[2016-05-28 15:59] LABS: Basophils % 0.3 %; Eosinophils % 0.6 %; Hematocrit 22.4 % (35.3-44.9); Hemoglobin 6.1 g/dL (11.5-15.4); Immature Granulocytes % 1.4 % (0-4); Lymphocytes # 0.5 K/mcL (0.6-4.6); Lymphocytes % 7.8 %; Mean Corpuscular HGB Conc 27.2 g/dL (31.6-35.5); Mean Corpuscular Hemoglobin 24.5 pg (28.0-33.3); Mean Platelet Volume 9.8 fL (9.4-12.4); Monocytes # 0.6 K/mcL (0.0-1.3); Monocytes % 9.1 %; Neutrophils # 5.2 K/mcL (1.6-8.9); Platelet Count 153 K/mcL (140-400); Red Blood Count 2.49 M/mcL (3.82-4.97); Red Cell Distribution Width 16.6 % (11.5-14.5); Segmented Neutrophils % 80.8 %
[2016-05-28 16:09] LABS: Calcium 9.3 mg/dL (8.6-10.8); Potassium 4.9 mEq/L (3.5-4.5)
[2016-05-28 16:22] LABS: Hypochromasia Present (Not Present)
[2016-05-28 17:25] LABS: INR 3.9
[2016-05-28 17:28] LABS: Activated Partial Thrombo Time 41.5 Seconds (26.0-36.0)
[2016-05-28 17:31] LABS: Prothrombin Time 43.4 Seconds (9.4-12.1)
[2016-05-28] MEDS ORDERED: Naloxone 0.4 MG/ML INJ IVP PRN (20:08)
[2016-05-28] MEDS ORDERED: NON-FORMULARY MEDICATION 1 EACH EACH (Oxygen [Oxygen] 2.5 L) NS SCH (20:15)
--- NOTE | 2016-05-28 20:41 | Internal Med History&Physical ---
Date of Encounter: 05/28/16 Time of Encounter: 19:30 Assessment and Plan (1) Acute exacerbation of chronic obstructive airways disease Current visit: Yes Status: Acute Treat with Solu-Medrol, doxycycline, bronchodilators and Mucinex. (2) Hematochezia Current visit: Yes Status: Acute Patient is on warfarin with therapeutic INR - will consult Beam Builder for advice, prior to considering reversing anticoagulation. Pantoprazole IV. Will consult Senior Case Manager for further advice. Keep her NPO after midnight for possible GI workup (3) Acute and chronic respiratory failure Current visit: No Status: Acute Possibly due to COPD exacerbation versus anemia. COntinue supplemental oxygen Qualifiers: Respiratory failure complication: hypoxia and hypercapnia Qualified Code(s) : J96.21 - Acute and chronic respiratory failure with hypoxia; J96.22 - Acute and chronic respiratory failure with hypercapnia (4) Chronic kidney disease, stage 3 Current visit: Yes Status: Chronic Monitor renal function (5) Congestive heart failure Current visit: No Status: Chronic Qualifiers: Congestive heart failure type: systolic Congestive heart failure chronicity : chronic Qualified Code(s): I50.22 - Chronic systolic (congestive) heart failure (6) Diabetes Current visit: No Status: Chronic Start diabetic diet; sliding scale insulin. 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 Transfuse 2 units of PRBC, with lasix cover. (8) Chronic anticoagulation Current visit: Yes Status: Chronic Patient is on warfarin with therapeutic INR - will consult Beam Builder for advice, prior to considering reversing anticoagulation (pt has mechanical valve and h/o atrial fibrillation) (9) Atrial fibrillation Current visit: No Status: Chronic Pt has h/o Atrial fibrillation. On amiodarone and is in sinus rhythm now Qualifiers: Atrial fibrillation type: paroxysmal Qualified Code(s): I48.0 - Paroxysmal atrial fibrillation (10) S/P AVR (aortic valve replacement) Current visit: Yes Status: Chronic Echo from 04/22/16 showed mechanical valve well placed in the LVOT. Patient is on warfarin with therapeutic INR - will consult Beam Builder for advice, prior to considering reversing anticoagulation. (11) DVT prophylaxis Current visit: Yes Status: Acute Pt is on warfarin with therapeutic INR Internal Medicine - H&P: HPI Chief complaint: Shortness of breath Admitted From: Emergency Dept Plans for Post Hospital Care: Home History of present illness: Ms. 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 She presents to the ER with h/o progressive shortness of breath and wheezing for a few days. She denies orthopnea. She reports cough with yellow expectoration. No hemoptysis. Denies fever, chills. She feels improved after treatment in the emergency department. Denies chest pain, abdominal pain. She reports feeling dizzy on standing up. Denies falls. Denies hematemesis. Reports black stools until 4 days ago. Now reports some bright blood in the stool. Denies dysuria or hematuria. She was evaluated in the emergency department. She was treated for acute exhibition of COPD. Her hemoglobin was 6.1 and INR was 3.9. I have reviewed her prior labs - had hemoglobin of 9.3 on 05/09/2016. Also had creatinine of 1.42 on 05/09/16. She is admitted to the hospitalist service for further management. Past Med Surg Social Fam HX - Past Medical History Medical history: CHF, COPD, diabetes, GI bleed, malignancy, valvular heart disease, other Psychiatric history: no psych history - Past Surgical History Surgical History: breast surgery, heart valve replacement, hysterectomy, MADHAVI/BSO , other, pacemaker - Social History Smoking Status: Former smoker Smokeless Tobacco Status: No Alcohol use: none Drug use: none - Family History Mother Family Member Ethnicity: Non- Living Status: Hx Family Cardiac Disorders: No Hx Family Respiratory Disorders: No Hx Family Cancer: Yes (breast cancer) Hx Family GI Disorders: No Hx Family Endocrine Disorder: No Hx Family Neuromuscular Disorders: No Hx Family Neurologic Disorders: No Hx Family HEENT Disorders: No Hx Family Autoimmune Disorders: No Father Living Status: Hx Family Cardiac Disorders: No Hx Family Respiratory Disorders: No Hx Family Cancer: Yes Hx Family GI Disorders: No Hx Family Endocrine Disorder: No Hx Family Neuromuscular Disorders: No Hx Family Neurologic Disorders: No Hx Family HEENT Disorders: No Hx Family Autoimmune Disorders: No Internal Medicine - H&P: Meds Budesonide/Formoterol 160/4.5 [Symbicort] 2 puff IH BID 01/30/15 [History] FLUoxetine HCl [Prozac] 20 mg PO BID 01/30/15 [History] Isosorbide MONOnitrate (24 HR) [Imdur] 30 mg PO DAILY 01/30/15 [History] Furosemide [Lasix] 40 mg PO QPM 08/11/15 [History] Furosemide [Lasix] 80 mg PO QAM 08/11/15 [History] Oxycodone HCl/Acetaminophen [Percocet 10-325 mg Tablet] 1 tab PO Q6H PRN [History] Ascorbic Acid [Vitamin C] 250 mg PO BID 30 Days 08/14/15 [Rx] Ferrous Sulfate 325 mg PO BIDWM #60 tablet 08/14/15 [Rx] Allopurinol [Zyloprim 300 MG] 300 mg PO DAILY 01/12/16 [History] Potassium Chloride [K-Tab ER] 20 meq PO BID 01/12/16 [History] Ropinirole HCl [Requip] 2 mg PO BID 01/12/16 [History] Sacubitril/Valsartan [Entresto 24 mg-26 mg Tablet] 1 tab PO DAILY 01/12/16 [ History] Calcium Carbonate [Calcium] 1,500 mg PO BID 04/22/16 [History] Gabapentin [Neurontin] 300 mg PO HS 04/22/16 [History] Ipratropium/Albuterol Neb [Duoneb] 3 ml IH Q6HR PRN 04/22/16 [History] Levothyroxine [Synthroid] 50 mcg PO DAILY 04/22/16 [History] Oxygen 2.5 l NS CONT 04/22/16 [History] Ranitidine HCl [Acid System Support Technician] 150 mg PO BID 04/22/16 [History] Amiodarone [Cordarone] 400 mg PO DAILY #30 tablet 04/27/16 [Rx] Metoprolol [Lopressor] 12.5 mg PO BID #60 tablet 04/27/16 [Rx] Folic Acid 1 mg PO DAILY 05/28/16 [History] Warfarin [Coumadin] 5 mg PO DAILY 05/28/16 [History] Allergies albuterol Allergy (Verified 01/09/16 19:46) Drowsy Penicillins Allergy (Verified 01/09/16 19:46) Hives Sulfa (Sulfonamide Antibiotics) Allergy (Verified 01/09/16 19:46) Hives jello Adverse Reaction (Uncoded 01/09/16 19:46) Nausea All Systems PM: A 10-system review of systems was performed and is negative for pertinent findings except as documented above in the HPI. - Constitutional Vitals: Temp Pulse Resp BP Pulse Ox 98.4 F 101 20 97/63 97 05/28/16 19:43 05/28/16 19:43 05/28/16 19:43 05/28/16 19:43 05/28/16 19:43 Exam: General: Not in acute distress at the time of my evaluation HEENT: Oral mucosa is moist. conjunctival palor present. No scleral icterus Neck: No obvious neck swellings Lungs: Bilateral basal crackles. Bilateral wheeze present Cardiac: Regular rate. Loud S2 Abdomen: Soft, non tender. Bowel sounds present Genitourinary: No montilla catheter Neurological: Alert and oriented. No gross localizing deficits Psych: Not aggressive or agitated Extremities: Trace leg edema Skin: No generalized rash Internal Med - H&P Results - Labs CBC & Chem 7: 05/28/16 15:08 05/28/16 15:08 - EKG Data EKG shows normal: sinus rhythm - EKG Data EKG comments: Sinus tachycardia with IVCD 05/28/16 23:40 - Impressions ITS Impressions Chest X-Ray 05/28/16 15:13 IMPRESSION: Stable chest x-ray with COPD, cardiomegaly and postthoracotomy changes. Suggestion of a small effusion on the right or pleural thickening. D/ /28/2016 15:42:33 Crystal Major MD / bcarter Interpreting Provider: Crystal Major MD - VTE Reasons for not Prescribing Prophylaxis: Not indicated-Anticoagulated or INR therapeutic
[2016-05-28] MEDS ORDERED: Dextrose Gel 15 GM PO PRN ×2 (20:46)
[2016-05-28] MEDS ORDERED: *HR* Dextrose 50 % in Water (Syg) 50 ML SYRINGE IVP PRN (20:46)
[2016-05-28] MEDS ORDERED: D5% in Water 1,000 ML IV PRN (20:46)
[2016-05-28] MEDS ORDERED: Furosemide 20 MG/2 ML VIAL IVP ONE (20:50)
[2016-05-28] MEDS ORDERED: 0.9 % Sodium Chloride 500 ML ONE (20:55)
[2016-05-28] MEDS: rOPINIRole 1 MG TABLET PO SCH (21:50)
[2016-05-28] MEDS: Furosemide 40 MG TABLET PO SCH (21:51)
[2016-05-28] MEDS: Doxycycline 100 MG CAPSULE PO SCH (21:51)
[2016-05-28] MEDS: Gabapentin 300 MG CAPSULE PO SCH (21:52)
[2016-05-28] MEDS: FLUoxetine 20 MG CAPSULE PO SCH (21:52)
[2016-05-28] MEDS: Ipratropium/Albuterol Neb 3 ML IH SCH (22:52)
[2016-05-28] MEDS: Budesonide/Formoterol 160/4.5 MDI IH SCH (22:57)
[2016-05-29] MEDS: Ipratropium/Albuterol Neb 3 ML IH SCH ×2 (04:38→10:40)
[2016-05-29 05:32] LABS: Basophils % 0.2 %; Hematocrit 27.7 % (35.3-44.9); Immature Granulocytes % 2.5 % (0-4); Lymphocytes # 0.3 K/mcL (0.6-4.6); Lymphocytes % 5.3 %; Mean Corpuscular HGB Conc 29.2 g/dL (31.6-35.5); Mean Corpuscular Hemoglobin 25.1 pg (28.0-33.3); Mean Corpuscular Volume 85.8 fL (83.0-100.0); Monocytes # 0.1 K/mcL (0.0-1.3); Monocytes % 1.8 %; Neutrophils # 4.6 K/mcL (1.6-8.9); Nucleated Red Blood Cells 1.2 /100 WBC (0); Platelet Count 163 K/mcL (140-400); Red Blood Count 3.23 M/mcL (3.82-4.97); Red Cell Distribution Width 16.1 % (11.5-14.5); Segmented Neutrophils % 90.2 %
[2016-05-29 05:34] LABS: Hemoglobin 8.1 g/dL (11.5-15.4)
[2016-05-29 05:36] LABS: Prothrombin Time 33.3 Seconds (9.4-12.1)
[2016-05-29 05:45] LABS: Hemoglobin A1C 4.9 %
[2016-05-29 05:46] LABS: Calcium 9.1 mg/dL (8.6-10.8); Magnesium 1.8 mg/dL (1.6-2.6); Potassium 4.3 mEq/L (3.5-4.5)
[2016-05-29] MEDS ORDERED: MethylPREDNISolone 40 MG/ML VIAL IVP SCH (06:00)
[2016-05-29 06:08] LABS: Thyroid Stimulating Hormone 0.63 mcIU/mL (0.350-4.840)
[2016-05-29] MEDS ORDERED: Sacubitril/Valsartan [Entresto 24 Mg-26 Mg Tablet] PO SCH (09:00)
[2016-05-29] MEDS: Folic Acid 1 MG TABLET PO SCH (09:27)
[2016-05-29] MEDS: *HR* Amiodarone 200 MG TABLET PO SCH (09:27)
[2016-05-29] MEDS: rOPINIRole 1 MG TABLET PO SCH ×2 (09:28→20:21)
[2016-05-29] MEDS: Isosorbide MONOnitrate (24 HR) 30 MG TAB.ER.24H PO SCH (09:28)
[2016-05-29] MEDS: FLUoxetine 20 MG CAPSULE PO SCH ×2 (09:29→20:22)
[2016-05-29] MEDS: Doxycycline 100 MG CAPSULE PO SCH ×2 (09:29→20:21)
[2016-05-29] MEDS: Furosemide 40 MG TABLET PO SCH ×2 (09:30→18:00)
[2016-05-29] MEDS: Insulin LISPRO 300 UNITS/3 ML VIAL SQ SCH ×4 (09:31→21:38)
[2016-05-29] MEDS: Budesonide/Formoterol 160/4.5 MDI IH SCH ×2 (10:40→22:34)
--- NOTE | 2016-05-29 13:53 | Internal Med Progress Note ---
Date of Encounter: 05/29/16 Time of Encounter: 13:44 - Assessment and plan (1) Acute exacerbation of chronic obstructive airways disease Current Visit: Yes Status: Acute Assessment and plan: Patient reports much improvement in breathing. Chest x-ray does not show any infiltrates. Was started on IV steroids and given breathing treatments. She also received 2 units of blood for symptomatic anemia. The shortness of breath could also be contributed by the anemia to which has improved after the blood transfusion. We will change the IV steroids to oral prednisone.. Continue the DuoNeb's and Symbicort and oxygen as needed. (2) Anemia Current Visit: Yes Status: Acute Assessment and plan: Patient has history of AV malformation, which was repaired last here on October with Dr. Rojo. Patient presents with repeat black and tarry stools. Appears most likely secondary to GI bleed. Status post 2 units of blood transfusion, repeat hemoglobin today is better at 8.1. GI has been consulted for possible repeat endoscopy,however patient will need continuation of anticoagulation for mechanical heart valve and atrial fibrillation. We will switch to heparin drip tomm as INR is therapeutic today and hold Coumadin for now until the INR normalizes to be stable enough for EGD. Monitor CBC daily. Qualifiers: Anemia type: unspecified type Qualified Code(s): D64.9 - Anemia, unspecified (3) Chronic kidney disease, stage 3 Current Visit: Yes Status: Chronic Assessment and plan: GFR at baseline. Continue to monitor. (4) S/P AVR (aortic valve replacement) Current Visit: Yes Status: Chronic Assessment and plan: Re-do AVR in 2012 at [facility]. [facility] in 2010 minimal disease. Echo shows mechanical valve is well seated, functioning properly. - Time Spent With Patient 25 - 35 minutes - Subjective Interval history: First encounter with the patient, patient was seen at the bedside this morning. Reports much improvement in the shortness of breath, reports that she is ready to go home. Also says that she has been having black tarry stools for a while which has turned reddish recently. Has had bowel movements this morning but did not notice the color. Denies any abdominal pain, nausea or vomiting. Status post 2 units of blood transfusion last night. - Constitutional Vitals: Temp Pulse Resp BP Pulse Ox 98.5 F 105 14 103/63 95 05/29/16 10:42 05/29/16 10:42 05/29/16 10:42 05/29/16 10:42 05/29/16 10:42 General appearance: Present: A&O X 3, no acute distress Exam: General: Not in acute distress at the time of my evaluation HEENT: Oral mucosa is moist. conjunctival palor present. No scleral icterus Neck: No obvious neck swellings Lungs: Bilateral clear. Cardiac: Regular rate. Loud S2 Abdomen: Soft, non tender. Bowel sounds present Genitourinary: No montilla catheter Neurological: Alert and oriented. No gross localizing deficits Psych: Not aggressive or agitated Extremities: Trace leg edema Skin: No generalized rash Internal Medicine: Result - Labs CBC & Chem 7: 05/29/16 14:53 05/29/16 04:34 Labs: Short CBC 05/29/16 Range/Units 04:34 WBC 5.1 (4.3-11.1) K/mcL Hgb 8.1 L D (11.5-15.4) g/dL Hct 27.7 L (35.3-44.9) % Plt Count 163 (140-400) K/mcL Neutrophils # 4.6 (1.6-8.9) K/mcL BMP 05/29/16 04:34 Sodium 143 Potassium 4.3 Chloride 99 Carbon Dioxide 33 H BUN 32 H Creatinine 1.48 H Glucose 186 H Calcium 9.1 - ABG Interpretation ABG results: PT/INR, D-dimer PT 33.3 Seconds (9.4-12.1) H 05/29/16 04:34 - VTE Reasons for not Prescribing Prophylaxis: Not indicated-Anticoagulated or INR therapeutic Consult Discharge Plan - Plan Referrals: NO,PCP [Primary Care Provider] -
[2016-05-29] MEDS ORDERED: *HR* Heparin 5,000 UNIT/ML VIAL IVP ONE (14:01)
[2016-05-29] MEDS ORDERED: *HR* Heparin 5,000 UNIT/ML VIAL IVP PRN ×2 (14:01)
[2016-05-29] MEDS ORDERED: Heparin 25,000 UNIT/500 ML D5W 25,000 UNIT/500 ML MLS IVC SCH (14:15)
--- NOTE | 2016-05-29 15:14 | Electrocardiograph Report ---
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
[2016-05-29 15:27] LABS: Hematocrit 27.2 % (35.3-44.9); Mean Corpuscular HGB Conc 29.4 g/dL (31.6-35.5); Mean Corpuscular Hemoglobin 25.4 pg (28.0-33.3); Mean Corpuscular Volume 86.3 fL (83.0-100.0); Mean Platelet Volume 10.1 fL (9.4-12.4); Platelet Count 167 K/mcL (140-400); Red Blood Count 3.15 M/mcL (3.82-4.97); Red Cell Distribution Width 16.4 % (11.5-14.5)
[2016-05-29 15:51] LABS: INR 2.8; Prothrombin Time 30.6 Seconds (9.4-12.1)
[2016-05-29 15:54] LABS: Activated Partial Thrombo Time 33.9 Seconds (26.0-36.0)
[2016-05-29] MEDS: predniSONE 20 MG TABLET PO SCH (18:11)
[2016-05-29] MEDS: *HR* OxyCODONE/APAP 10/325 TABLET PO PRN (20:20)
[2016-05-29] MEDS: Gabapentin 300 MG CAPSULE PO SCH (20:21)
[2016-05-29] MEDS: Sacubitril/Valsartan [Entresto 24 Mg-26 Mg Tablet] PO SCH (20:22)
[2016-05-29] MEDS: Pantoprazole 40 MG VIAL IVP SCH (20:35)
[2016-05-30] MEDS: Pantoprazole 40 MG VIAL IVP SCH ×2 (05:36→16:40)
[2016-05-30 08:47] LABS: Basophils % 0.1 %; Hematocrit 28.1 % (35.3-44.9); Hemoglobin 8.2 g/dL (11.5-15.4); Immature Granulocytes % 2.1 % (0-4); Lymphocytes # 0.4 K/mcL (0.6-4.6); Lymphocytes % 3.7 %; Mean Corpuscular HGB Conc 29.2 g/dL (31.6-35.5); Mean Corpuscular Hemoglobin 25.3 pg (28.0-33.3); Mean Corpuscular Volume 86.7 fL (83.0-100.0); Mean Platelet Volume 10.2 fL (9.4-12.4); Monocytes # 0.3 K/mcL (0.0-1.3); Nucleated Red Blood Cells 0.6 /100 WBC (0); Platelet Count 191 K/mcL (140-400); Red Blood Count 3.24 M/mcL (3.82-4.97); Red Cell Distribution Width 16.7 % (11.5-14.5); Segmented Neutrophils % 91.1 %
[2016-05-30] MEDS: Doxycycline 100 MG CAPSULE PO SCH ×2 (08:48→20:57)
[2016-05-30] MEDS: Folic Acid 1 MG TABLET PO SCH (08:48)
[2016-05-30] MEDS: rOPINIRole 1 MG TABLET PO SCH ×2 (08:48→20:55)
[2016-05-30] MEDS: *HR* Amiodarone 200 MG TABLET PO SCH (08:48)
[2016-05-30] MEDS: predniSONE 20 MG TABLET PO SCH (08:48)
[2016-05-30] MEDS: FLUoxetine 20 MG CAPSULE PO SCH ×2 (08:49→20:57)
[2016-05-30] MEDS: Insulin LISPRO 300 UNITS/3 ML VIAL SQ SCH ×4 (08:49→20:55)
[2016-05-30] MEDS: Isosorbide MONOnitrate (24 HR) 30 MG TAB.ER.24H PO SCH (08:50)
[2016-05-30 08:52] LABS: INR 2.6; Prothrombin Time 28.3 Seconds (9.4-12.1)
[2016-05-30] MEDS: Sacubitril/Valsartan [Entresto 24 Mg-26 Mg Tablet] PO SCH (08:55)
[2016-05-30] MEDS: Furosemide 40 MG TABLET PO SCH ×2 (08:55→16:40)
[2016-05-30 08:58] LABS: Calcium 9.3 mg/dL (8.6-10.8); Potassium 4.2 mEq/L (3.5-4.5)
[2016-05-30] MEDS ORDERED: 0.9 % Sodium Chloride 500 ML IVC ONE (10:12)
[2016-05-30] MEDS: Iron Sucrose Complex 200 MG in 0.9 % Sodium Chloride 100 ML IVPB SCH (10:43)
--- NOTE | 2016-05-30 11:11 | Gastroenterology Consult Note ---
<Bonilla Kohler - Last Filed: 05/30/16 11:07> Date of Encounter: 05/30/16 Time of Encounter: 10:05 - Assessment and plan (1) Anemia Current Visit: Yes Status: Acute Assessment and plan: Secondary to GI bleeding. Continue to monitor CBC and transfuse PRBC as needed. Qualifiers: Anemia type: unspecified type Qualified Code(s): D64.9 - Anemia, unspecified (2) Melena Current Visit: No Status: Acute (3) GI bleed Current Visit: No Status: Acute Assessment and plan: Pt with melena and red blood per rectum. INR 2.6 this AM. Coumadin on hold and pt to be started on Heparin gtt. Check INR in AM, if 1.5 or less we will plan for EGD tomorrow (Friday) to r/o esophagitis, gastritis, duodenitis, PUD, MW tear, or AVM. If INR greater than 1.5 tomorrow, plan for EGD and colonoscopy on Friday. Clear liquid diet Friday, no red or purple. NPO at midnight (Friday night 23:59). If unable tolerate NuLytely please use MiraLAX prep. If not clear by 6 AM, give 2 tap water enemas. Qualifiers: GI bleed type/associated pathology: unspecified gastrointestinal hemorrhage type Qualified Code(s): K92.2 - Gastrointestinal hemorrhage, unspecified (4) S/P AVR (aortic valve replacement) Current Visit: Yes Status: Chronic (5) Atrial fibrillation Current Visit: No Status: Chronic Qualifiers: Atrial fibrillation type: paroxysmal Qualified Code(s): I48.0 - Paroxysmal atrial fibrillation - Time Spent With Patient Total time spent is greater than 50% in coordination of care (as documented) at patient's floor/unit and/or counseling patient: GI History of Present Illness - Data of Consult Patient: known to practice within the last 3 years Consult date: 05/30/16 Requesting Physician: Unique Allen - Consult Narrative Reason for consult: GIB, symptomatic anemia History of present illness: Ms. Higginbotham is a 75 year old female with PMHx of CHF, COPD, DM, GI bleed, aortic valve replacement, Afib on Coumadin, ICD and pacemaker who presented to the ED with SOB and wheezing. Hgb in the ED was 6.1 with INR 3.9. Hgb on 05/09/16 was 9.3. She denies chest pain, abdominal pain, nausea, vomiting, hematemesis. She reports black stools until 4-5 days ago, and now states it has turned reddish recently. Pt requires continuation of anticoagulation for mechanical heart valve and Afib. Procedures: Colonoscopy 08/13/2015 single nonbleeding colonic angiodysplasia treated with APC and clips. Diverticulosis in the sigmoid colon and internal hemorrhoids. Small bowel enteroscopy 08/13/2015: Normal esophagus and stomach. 3 nonbleeding angioectasias in the duodenum, one in the stomach treated with APC. NSAIDs: None Anticoagulation: Coumadin Past Med Surg Social Fam HX - Past Medical History Medical history: CHF, COPD, diabetes, GI bleed, malignancy, valvular heart disease, other Psychiatric history: no psych history - Past Surgical History Surgical History: breast surgery, heart valve replacement, hysterectomy, MADHAVI/BSO , other, pacemaker - Social History Smoking Status: Former smoker Smokeless Tobacco Status: No Alcohol use: none Drug use: none - Family History Mother Family Member Ethnicity: Non- Living Status: Hx Family Cardiac Disorders: No Hx Family Respiratory Disorders: No Hx Family Cancer: Yes (breast cancer) Hx Family GI Disorders: No Hx Family Endocrine Disorder: No Hx Family Neuromuscular Disorders: No Hx Family Neurologic Disorders: No Hx Family HEENT Disorders: No Hx Family Autoimmune Disorders: No Father Living Status: Hx Family Cardiac Disorders: No Hx Family Respiratory Disorders: No Hx Family Cancer: Yes Hx Family GI Disorders: No Hx Family Endocrine Disorder: No Hx Family Neuromuscular Disorders: No Hx Family Neurologic Disorders: No Hx Family HEENT Disorders: No Hx Family Autoimmune Disorders: No - Gastrointestinal Gastrointestinal: Present: as per HPI - Constitutional Constitutional: as per HPI - EENT Eyes: as per HPI Ears: Present: as per HPI Nose, mouth and throat: Present: as per HPI - Cardiovascular Cardiovascular ROS: Present: as per HPI - Respiratory Respiratory IM: Present: as per HPI - Genitourinary Genitourinary: Absent: change in color, Urinary frequency - Neurological ROS Neurological GI: Present: as per HPI - Hematologic/Lymphatic Hematologic/Lymphatic pediatric: Present: as per HPI - Musculoskeletal Musculoskeletal ROS GI: Present: as per HPI - Integumentary Integumentary GI: Present: as per HPI - Psychiatric ROS Psychiatric GI: Present: as per HPI - Endocrine Endocrine IM: Present: as per HPI - Constitutional Vitals: Temp Pulse Resp BP Pulse Ox 98.1 F 104 17 98/63 97 05/30/16 10:58 05/30/16 10:58 05/30/16 10:58 05/30/16 10:58 05/30/16 10:58 General appearance: Present: cooperative, A&O X 3, no acute distress, answers questions appropriately - Head Head exam: Present: atraumatic, normocephalic - Eye Eye exam: Present: normal appearance, sclera anicteric - ENT ENT exam: Present: mucous membranes dry - Neck Neck exam general surgery: Present: normal inspection, trachea midline - Respiratory Respiratory exam: Present: CTAB. Absent: rales, rhonchi, wheezes - Cardiovascular Cardiovascular exam: Present: RRR, +S1, +S2 - GI/Abdominal GI/Abdominal exam: Present: soft, no peritoneal signs. Absent: distended, firm , guarding, tenderness - Rectal Rectal exam: Present: deferred - Extremities Exam Extremities exam: Present: warm - Neurological Exam Neurological exam: Present: no focal deficits - Psychiatric Psychiatric exam: Present: normal affect, normal mood - Skin Skin exam: Present: dry, intact, normal color, warm Results - Labs CBC & Chem 7: 05/30/16 08:22 05/30/16 08:22 Labs: Last Result Calcium 9.3 mg/dL (8.6-10.8) 05/30/16 08:22 Iron 13 mcg/dL (50-170) L 05/28/16 15:08 % Saturation 3 % (15-50) L 05/28/16 15:08 Transferrin 295 mg/dL (180-382) 05/28/16 15:08 Troponin I 0.01 ng/mL (0-0.03) 05/28/16 15:08 Vitamin B12 1118 pg/mL (213-816) H 05/28/16 15:48 Entire Visit Hgb 8.2 g/dL (11.5-15.4) L 05/30/16 08:22 Hct 28.1 % (35.3-44.9) L 05/30/16 08:22 PT 28.3 Seconds (9.4-12.1) H 05/30/16 08:22 - ABG ABG results: PT/INR, D-dimer PT 28.3 Seconds (9.4-12.1) H 05/30/16 08:22 Consult Discharge Plan - Plan Referrals: Francisco Melgar Jr [Non-Partnered Physician] - 06/10/16 11:20 am (Please follow up as schedule...) <Ninfa Rojo - Last Filed: 05/30/16 17:25> Date of Encounter: 05/30/16 Time of Encounter: 15:00 - Time Spent With Patient Total time spent is greater than 50% in coordination of care (as documented) at patient's floor/unit and/or counseling patient: GI History of Present Illness - Data of Consult Requesting Physician: Unique Allen - Consult Narrative History of present illness: Ms. Higginbotham is a 75 year old female - Constitutional Vitals: Temp Pulse Resp BP Pulse Ox 98.1 F 102 19 92/64 92 L 05/30/16 16:02 05/30/16 16:02 05/30/16 16:02 05/30/16 16:02 05/30/16 16:02 Results - Labs CBC & Chem 7: 05/30/16 08:22 05/30/16 08:22 Labs: Last Result Calcium 9.3 mg/dL (8.6-10.8) 05/30/16 08:22 Iron 13 mcg/dL (50-170) L 05/28/16 15:08 % Saturation 3 % (15-50) L 05/28/16 15:08 Transferrin 295 mg/dL (180-382) 05/28/16 15:08 Troponin I 0.01 ng/mL (0-0.03) 05/28/16 15:08 Vitamin B12 1118 pg/mL (213-816) H 05/28/16 15:48 Entire Visit Hgb 8.2 g/dL (11.5-15.4) L 05/30/16 08:22 Hct 28.1 % (35.3-44.9) L 05/30/16 08:22 PT 28.3 Seconds (9.4-12.1) H 05/30/16 08:22 - ABG ABG results: PT/INR, D-dimer PT 28.3 Seconds (9.4-12.1) H 05/30/16 08:22
[2016-05-30] MEDS: Ipratropium/Albuterol Neb 3 ML IH PRN (11:17)
[2016-05-30] MEDS: Budesonide/Formoterol 160/4.5 MDI IH SCH ×2 (11:17→20:21)
[2016-05-30] MEDS ORDERED: *HR* Heparin 5,000 UNIT/ML VIAL IVP ONE (14:01)
[2016-05-30] MEDS ORDERED: *HR* Heparin 5,000 UNIT/ML VIAL IVP PRN (14:01)
--- NOTE | 2016-05-30 14:23 | Internal Med Progress Note ---
Date of Encounter: 05/30/16 Time of Encounter: 14:20 - Assessment and plan (1) Acute exacerbation of chronic obstructive airways disease Current Visit: Yes Status: Acute Assessment and plan: Patient reports much improvement in breathing. Chest x-ray does not show any infiltrates. Was started on IV steroids and given breathing treatments. She also received 2 units of blood for symptomatic anemia. The shortness of breath could also be contributed by the anemia to which has improved after the blood transfusion. We will change the IV steroids to oral prednisone.. Continue the DuoNeb's and Symbicort and oxygen as needed. (2) Anemia Current Visit: Yes Status: Acute Assessment and plan: Patient has history of AV malformation, which was repaired last here on October with Dr. Rojo. Patient presents with repeat black and tarry stools. Appears most likely secondary to GI bleed. Status post 2 units of blood transfusion, repeat hemoglobin today is better at 8.2 GI has been consulted for possible repeat endoscopy,however patient will need continuation of anticoagulation for mechanical heart valve and atrial fibrillation. We will switch to heparin drip today. hold Coumadin for now until the INR normalizes to be stable enough for EGD. plan EGD tomm if INR <1.5 Monitor CBC daily. Qualifiers: Anemia type: unspecified type Qualified Code(s): D64.9 - Anemia, unspecified (3) Chronic kidney disease, stage 3 Current Visit: Yes Status: Chronic Assessment and plan: GFR at baseline. Continue to monitor. (4) S/P AVR (aortic valve replacement) Current Visit: Yes Status: Chronic Assessment and plan: Re-do AVR in 2012 at [facility]. [facility] in 2010 minimal disease. Echo shows mechanical valve is well seated, functioning properly. - Time Spent With Patient 25 - 35 minutes - Subjective Interval history: patient was seen at the bedside this morning. Reports improvement in the shortness of breath Denies any abdominal pain, nausea or vomiting. Status post 2 units of blood transfusion - Constitutional Vitals: Temp Pulse Resp BP Pulse Ox 98.1 F 104 14 98/63 93 L 05/30/16 10:58 05/30/16 10:58 05/30/16 11:17 05/30/16 10:58 05/30/16 11:17 General appearance: Present: A&O X 3, no acute distress Exam: HEENT: Oral mucosa is moist. conjunctival palor present. No scleral icterus Neck: No obvious neck swellings Lungs: Bilateral clear. Cardiac: Regular rate. Loud S2 Abdomen: Soft, non tender. Bowel sounds present Genitourinary: No montilla catheter Neurological: Alert and oriented. No gross localizing deficits Psych: Not aggressive or agitated Extremities: Trace leg edema Skin: No generalized rash Internal Medicine: Result - Labs CBC & Chem 7: 05/30/16 08:22 05/30/16 08:22 Labs: Short CBC 05/29/16 05/30/16 Range/Units 14:53 08:22 WBC 8.2 D 11.0 (4.3-11.1) K/mcL Hgb 8.0 L 8.2 L (11.5-15.4) g/dL Hct 27.2 L 28.1 L (35.3-44.9) % Plt Count 167 191 (140-400) K/mcL Neutrophils # 10.0 H (1.6-8.9) K/mcL BMP 05/30/16 08:22 Sodium 136 Potassium 4.2 Chloride 93 L Carbon Dioxide 33 H BUN 45 H D Creatinine 1.85 H Glucose 153 H Calcium 9.3 - ABG Interpretation ABG results: PT/INR, D-dimer PT 28.3 Seconds (9.4-12.1) H 05/30/16 08:22 - VTE Reasons for not Prescribing Prophylaxis: Not indicated-Anticoagulated or INR therapeutic Consult Discharge Plan - Plan Referrals: Francisco Melgar Jr [Non-Partnered Physician] - 06/10/16 11:20 am (Please follow up as schedule...)
[2016-05-30] MEDS: Heparin 25,000 UNIT/500 ML D5W 25,000 UNIT/500 ML MLS IVC SCH (15:02)
[2016-05-30] MEDS: SACUBITRIL/VALSARTAN 24/26 MG TABLET PO SCH (20:55)
[2016-05-30] MEDS: Gabapentin 300 MG CAPSULE PO SCH (20:57)
[2016-05-30 21:34] LABS: Activated Partial Thrombo Time > 360.0 Seconds (26.0-36.0)
[2016-05-30] MEDS: *HR* OxyCODONE/APAP 10/325 TABLET PO PRN (21:37)
[2016-05-30 21:41] LABS: Heparin anti-factor XA UFH 1.73 IU/mL (0.30-0.70)
[2016-05-31 01:24] LABS: INR 2.6; Prothrombin Time 29.4 Seconds (9.4-12.1)
[2016-05-31 01:28] LABS: Activated Partial Thrombo Time 107.6 Seconds (26.0-36.0)
[2016-05-31] MEDS: Pantoprazole 40 MG VIAL IVP SCH ×2 (05:48→16:47)
[2016-05-31 08:18] LABS: Basophils % 0.1 %; Hematocrit 26.1 % (35.3-44.9); Hemoglobin 7.9 g/dL (11.5-15.4); Immature Granulocytes % 3.1 % (0-4); Lymphocytes # 0.8 K/mcL (0.6-4.6); Lymphocytes % 7.6 %; Mean Corpuscular HGB Conc 30.3 g/dL (31.6-35.5); Mean Corpuscular Hemoglobin 25.6 pg (28.0-33.3); Mean Corpuscular Volume 84.5 fL (83.0-100.0); Mean Platelet Volume 9.8 fL (9.4-12.4); Monocytes # 0.8 K/mcL (0.0-1.3); Monocytes % 7.8 %; Neutrophils # 8.1 K/mcL (1.6-8.9); Nucleated Red Blood Cells 0.8 /100 WBC (0); Platelet Count 174 K/mcL (140-400); Red Blood Count 3.09 M/mcL (3.82-4.97); Red Cell Distribution Width 16.6 % (11.5-14.5); Segmented Neutrophils % 81.4 %
[2016-05-31 08:32] LABS: Calcium 9.1 mg/dL (8.6-10.8); Potassium 3.5 mEq/L (3.5-4.5)
[2016-05-31] MEDS: rOPINIRole 1 MG TABLET PO SCH ×2 (09:42→21:06)
[2016-05-31] MEDS: Isosorbide MONOnitrate (24 HR) 30 MG TAB.ER.24H PO SCH (09:42)
[2016-05-31] MEDS: Doxycycline 100 MG CAPSULE PO SCH ×2 (09:43→21:06)
[2016-05-31] MEDS: SACUBITRIL/VALSARTAN 24/26 MG TABLET PO SCH ×2 (09:43→21:06)
[2016-05-31] MEDS: Folic Acid 1 MG TABLET PO SCH (09:43)
[2016-05-31] MEDS: Insulin LISPRO 300 UNITS/3 ML VIAL SQ SCH ×4 (09:44→21:08)
[2016-05-31] MEDS: *HR* Amiodarone 200 MG TABLET PO SCH (09:44)
[2016-05-31] MEDS: FLUoxetine 20 MG CAPSULE PO SCH ×2 (09:44→21:06)
[2016-05-31] MEDS: predniSONE 20 MG TABLET PO SCH (09:44)
[2016-05-31] MEDS: Furosemide 40 MG TABLET PO SCH ×2 (09:45→16:47)
[2016-05-31] MEDS: Heparin 25,000 UNIT/500 ML D5W 25,000 UNIT/500 ML MLS IVC SCH (10:16)
[2016-05-31] MEDS: Iron Sucrose Complex 200 MG in 0.9 % Sodium Chloride 100 ML IVPB SCH (10:21)
[2016-05-31] MEDS: Budesonide/Formoterol 160/4.5 MDI IH SCH ×2 (10:28→21:41)
--- NOTE | 2016-05-31 13:02 | Internal Med Progress Note ---
Date of Encounter: 05/31/16 Time of Encounter: 12:58 - Assessment and plan (1) Acute exacerbation of chronic obstructive airways disease Current Visit: Yes Status: Acute Assessment and plan: Patient reports much improvement in breathing. Chest x-ray does not show any infiltrates. Was started on IV steroids and given breathing treatments. She also received 2 units of blood for symptomatic anemia. The shortness of breath could also be contributed by the anemia to which has improved after the blood transfusion. continue oral prednisone.. Continue the DuoNeb's and Symbicort and oxygen as needed. (2) Anemia Current Visit: Yes Status: Acute Assessment and plan: Patient has history of AV malformation, which was repaired last here on October with Dr. Rojo. Patient presents with repeat black and tarry stools. Appears most likely secondary to GI bleed. Status post 2 units of blood transfusion, repeat hemoglobin today is 7.9 which is slowly trending down. GI has been consulted for possible repeat endoscopy,however patient will need continuation of anticoagulation for mechanical heart valve and atrial fibrillation. INR therapeutic at 2.6 today. hold Coumadin for now until the INR <1.5 to be stable enough for EGD. will add heparin drip if INR subterapeutic. Monitor CBC daily. Qualifiers: Anemia type: unspecified type Qualified Code(s): D64.9 - Anemia, unspecified (3) Chronic kidney disease, stage 3 Current Visit: Yes Status: Chronic Assessment and plan: GFR at baseline. Continue to monitor. (4) S/P AVR (aortic valve replacement) Current Visit: Yes Status: Chronic Assessment and plan: Re-do AVR in 2012 at [facility]. [facility] in 2010 minimal disease. Echo shows mechanical valve is well seated, functioning properly. - Time Spent With Patient 25 - 35 minutes - Subjective Interval history: patient was seen at the bedside this morning. Denies any abdominal pain, nausea or vomiting. no govind or blood in stool. Status post 2 units of blood transfusion , hb trending down to 7.9 today. INR therapeutic at 2.6 planned for possible colonoscopy on friday. - Constitutional Vitals: Temp Pulse Resp BP Pulse Ox 97.5 F L 90 18 100/61 96 05/31/16 10:00 05/31/16 10:00 05/31/16 10:28 05/31/16 10:00 05/31/16 10:28 General appearance: Present: A&O X 3, no acute distress Exam: HEENT: Oral mucosa is moist. conjunctival palor present. No scleral icterus Neck: No obvious neck swellings Lungs: Bilateral clear. Cardiac: Regular rate. Loud S2 Abdomen: Soft, non tender. Bowel sounds present Genitourinary: No montilla catheter Neurological: Alert and oriented. No gross localizing deficits Psych: Not aggressive or agitated Extremities: Trace leg edema Skin: No generalized rash Internal Medicine: Result - Labs CBC & Chem 7: 05/31/16 08:09 05/31/16 08:09 Labs: Short CBC 05/31/16 Range/Units 08:09 WBC 9.9 (4.3-11.1) K/mcL Hgb 7.9 L (11.5-15.4) g/dL Hct 26.1 L (35.3-44.9) % Plt Count 174 (140-400) K/mcL Neutrophils # 8.1 (1.6-8.9) K/mcL BMP 05/31/16 08:09 Sodium 138 Potassium 3.5 Chloride 95 L Carbon Dioxide 33 H BUN 48 H Creatinine 1.78 H Glucose 78 Calcium 9.1 - ABG Interpretation ABG results: PT/INR, D-dimer PT 29.4 Seconds (9.4-12.1) H 05/31/16 01:10 - VTE Reasons for not Prescribing Prophylaxis: Not indicated-Anticoagulated or INR therapeutic Consult Discharge Plan - Plan Referrals: Francisco Melgar Jr [Non-Partnered Physician] - 06/10/16 11:20 am (Please follow up as schedule...)
[2016-05-31] MEDS: *HR* OxyCODONE/APAP 10/325 TABLET PO PRN (16:47)
--- NOTE | 2016-05-31 16:53 | Electrocardiograph Report ---
[address] [place] [address] Test Date: 2016-05-31 Pat Name: Janay Higginbotham Department: 112 Room: 2A14 Gender: F Client Support Administrator: : 1940 Requested By: Unique Allen Order Number: [id number] Reading MD: Alexia Perry Measurements Intervals [place] Rate: 79 P: [place]: 0 QRS: -5 QRSD: 138 T: 197 QT: 425 QTc: 459 Interpretive Statements ATRIAL FIBRILLATION INTRAVENTRICULAR CONDUCTION DELAY Electronically Signed On 05-31-2016 16:52:26 EST by Alexia Perry
[2016-06-01] MEDS: Ipratropium/Albuterol Neb 3 ML IH PRN (04:10)
[2016-06-01 04:25] LABS: Hematocrit 28.7 % (35.3-44.9); Hemoglobin 8.4 g/dL (11.5-15.4); Mean Corpuscular HGB Conc 29.3 g/dL (31.6-35.5); Mean Corpuscular Hemoglobin 25.5 pg (28.0-33.3); Mean Corpuscular Volume 87.2 fL (83.0-100.0); Mean Platelet Volume 9.4 fL (9.4-12.4); Platelet Count 194 K/mcL (140-400); Red Blood Count 3.29 M/mcL (3.82-4.97); Red Cell Distribution Width 16.9 % (11.5-14.5)
[2016-06-01 04:26] LABS: Nucleated Red Blood Cells 1.8 /100 WBC (0)
[2016-06-01 04:42] LABS: Anisocytosis 1+ (Not Present); Hypochromasia Present (Not Present); Lymphocytes # 1.3 K/mcL (0.6-4.6); Microcytosis Present (Not Present); Monocytes # 0.4 K/mcL (0.0-1.3); Neutrophils # 8.5 K/mcL (1.6-8.9); Platelet Estimate Normal (Normal); Reactive Lymphocytes Present (Not Present)
[2016-06-01 04:44] LABS: Basophilic Stippling 1+ (Not Present)
[2016-06-01 04:46] LABS: Calcium 8.9 mg/dL (8.6-10.8); Potassium 3.2 mEq/L (3.5-4.5)
[2016-06-01] MEDS: Pantoprazole 40 MG VIAL IVP SCH ×2 (06:29→18:13)
[2016-06-01] MEDS: Insulin LISPRO 300 UNITS/3 ML VIAL SQ SCH ×4 (08:12→20:31)
[2016-06-01] MEDS: Doxycycline 100 MG CAPSULE PO SCH ×2 (09:55→20:26)
[2016-06-01] MEDS: *HR* Amiodarone 200 MG TABLET PO SCH (09:56)
[2016-06-01] MEDS: SACUBITRIL/VALSARTAN 24/26 MG TABLET PO SCH ×2 (09:56→20:26)
[2016-06-01] MEDS: Isosorbide MONOnitrate (24 HR) 30 MG TAB.ER.24H PO SCH (09:57)
[2016-06-01] MEDS: Folic Acid 1 MG TABLET PO SCH (09:57)
[2016-06-01] MEDS: Furosemide 40 MG TABLET PO SCH ×2 (09:57→18:13)
[2016-06-01] MEDS: FLUoxetine 20 MG CAPSULE PO SCH ×2 (09:58→20:26)
[2016-06-01] MEDS: rOPINIRole 1 MG TABLET PO SCH ×2 (09:58→20:26)
[2016-06-01] MEDS: predniSONE 20 MG TABLET PO SCH (09:58)
[2016-06-01] MEDS: Budesonide/Formoterol 160/4.5 MDI IH SCH (10:04)
[2016-06-01] MEDS: Iron Sucrose Complex 200 MG in 0.9 % Sodium Chloride 100 ML IVPB SCH (10:04)
--- NOTE | 2016-06-01 12:31 | Internal Med Progress Note ---
Date of Encounter: 06/01/16 Time of Encounter: 12:28 - Assessment and plan (1) Acute exacerbation of chronic obstructive airways disease Current Visit: Yes Status: Acute Assessment and plan: Patient has wheeezing. Chest x-ray does not show any infiltrates. We will change oral steroids to IV methylprednisone. will Continue the DuoNeb's q4h scheduled (2) Anemia Current Visit: Yes Status: Acute Assessment and plan: Patient has history of AV malformation, which was repaired last here on October with Dr. Rojo. Patient presents with repeat black and tarry stools. Appears most likely secondary to GI bleed .Status post 2 units of blood transfusion, repeat hemoglobin today is 8.4 GI has been consulted for possible repeat endoscopy,however patient will need continuation of anticoagulation for mechanical heart valve and atrial fibrillation. INR therapeutic at 2.0 today. hold Coumadin for now until the INR <1.5 to be stable enough for EGD. will add heparin drip Monitor CBC daily. Qualifiers: Anemia type: unspecified type Qualified Code(s): D64.9 - Anemia, unspecified (3) Chronic kidney disease, stage 3 Current Visit: Yes Status: Chronic Assessment and plan: mild increase in creatinine Continue to monitor. (4) S/P AVR (aortic valve replacement) Current Visit: Yes Status: Chronic Assessment and plan: Re-do AVR in 2012 at [facility]. [facility] in 2010 minimal disease. Echo shows mechanical valve is well seated, functioning properly. - Time Spent With Patient 25 - 35 minutes - Subjective Interval history: patient was seen at the bedside this morning. Denies any abdominal pain, nausea or vomiting. no govind or blood in stool for now, has not had any bowel movement. Status post 2 units of blood transfusion , hb 2 days 8.4. INR ubtherapeutic at 2.0. planned for possible colonoscopy on friday. - Constitutional Vitals: Temp Pulse Resp BP Pulse Ox 98.3 F 93 18 89/55 95 06/01/16 11:37 06/01/16 11:37 06/01/16 11:37 06/01/16 11:37 06/01/16 11:37 General appearance: Present: A&O X 3, no acute distress Exam: HEENT: Oral mucosa is moist. conjunctival palor present. No scleral icterus Neck: No obvious neck swellings Lungs: Bilateral clear. Cardiac: Regular rate. Loud S2 Abdomen: Soft, non tender. Bowel sounds present Genitourinary: No montilla catheter Neurological: Alert and oriented. No gross localizing deficits Psych: Not aggressive or agitated Extremities: Trace leg edema Skin:has bruising in her limbs Internal Medicine: Result - Labs CBC & Chem 7: 06/01/16 04:15 06/01/16 04:15 Labs: Short CBC 06/01/16 Range/Units 04:15 WBC 10.4 (4.3-11.1) K/mcL Hgb 8.4 L (11.5-15.4) g/dL Hct 28.7 L (35.3-44.9) % Plt Count 194 (140-400) K/mcL Neutrophils # 8.5 (1.6-8.9) K/mcL BMP 06/01/16 04:15 Sodium 143 Potassium 3.2 L Chloride 97 L Carbon Dioxide 35 H BUN 47 H Creatinine 1.93 H Glucose 118 H Calcium 8.9 - ABG Interpretation ABG results: PT/INR, D-dimer PT 22.0 Seconds (9.4-12.1) H 06/01/16 09:29 - VTE Reasons for not Prescribing Prophylaxis: Not indicated-Anticoagulated or INR therapeutic Consult Discharge Plan - Plan Referrals: Francisco Melgar Jr [Non-Partnered Physician] - 06/10/16 11:20 am (Please follow up as schedule...)
[2016-06-01] MEDS: methylPREDNISolone 125 MG/2 ML VIAL IVP SCH ×2 (14:35→20:33)
[2016-06-01] MEDS: Heparin 25,000 UNIT/500 ML D5W 25,000 UNIT/500 ML MLS IVC SCH (15:02)
[2016-06-01] MEDS: Ipratropium/Albuterol Neb 3 ML IH SCH ×2 (16:48→20:01)
[2016-06-01 21:25] LABS: Activated Partial Thrombo Time 120.7 Seconds (26.0-36.0)
[2016-06-01 21:36] LABS: Heparin anti-factor XA UFH 0.62 IU/mL (0.30-0.70)
[2016-06-02] MEDS: Ipratropium/Albuterol Neb 3 ML IH SCH ×6 (00:15→20:49)
[2016-06-02 05:14] LABS: INR 1.6
[2016-06-02] MEDS: Pantoprazole 40 MG VIAL IVP SCH ×2 (05:27→18:03)
[2016-06-02] MEDS: methylPREDNISolone 125 MG/2 ML VIAL IVP SCH ×3 (05:27→21:30)
[2016-06-02 05:36] LABS: Activated Partial Thrombo Time > 360.0 Seconds (26.0-36.0)
[2016-06-02 05:49] LABS: Heparin anti-factor XA UFH 0.79 IU/mL (0.30-0.70)
[2016-06-02] MEDS: Folic Acid 1 MG TABLET PO SCH (09:01)
[2016-06-02] MEDS: *HR* Amiodarone 200 MG TABLET PO SCH (09:01)
[2016-06-02] MEDS: Iron Sucrose Complex 200 MG in 0.9 % Sodium Chloride 100 ML IVPB SCH (09:01)
[2016-06-02] MEDS: Doxycycline 100 MG CAPSULE PO SCH (09:01)
[2016-06-02] MEDS: Isosorbide MONOnitrate (24 HR) 30 MG TAB.ER.24H PO SCH (09:02)
[2016-06-02] MEDS: SACUBITRIL/VALSARTAN 24/26 MG TABLET PO SCH ×2 (09:02→21:41)
[2016-06-02] MEDS: Furosemide 40 MG TABLET PO SCH ×2 (09:02→18:03)
[2016-06-02] MEDS: rOPINIRole 1 MG TABLET PO SCH ×2 (09:02→21:52)
[2016-06-02] MEDS: FLUoxetine 20 MG CAPSULE PO SCH ×2 (09:02→21:37)
[2016-06-02] MEDS: Insulin LISPRO 300 UNITS/3 ML VIAL SQ SCH ×4 (09:03→21:52)
--- NOTE | 2016-06-02 14:33 | Internal Med Progress Note ---
Date of Encounter: 06/02/16 Time of Encounter: 14:26 - Assessment and plan (1) Acute exacerbation of chronic obstructive airways disease Current Visit: Yes Status: Acute Assessment and plan: Patient sounds much better. Chest x-ray does not show any infiltrates. lamont continue IV methylprednisone today, plan to taper from tomm. will Continue the DuoNeb's q4h scheduled (2) Anemia Current Visit: Yes Status: Acute Assessment and plan: Patient has history of AV malformation, which was repaired last here on October with Dr. Rojo. Patient presents with repeat black and tarry stools. Appears most likely secondary to GI bleed .Status post 2 units of blood transfusion, repeat hemoglobin 8.4, pendning today. GI has been consulted for possible repeat endoscopy,however patient will need continuation of anticoagulation for mechanical heart valve and atrial fibrillation. INR therapeutic at 1.6 today. possible EGD/colonoscopy tomm, NPO past MN Monitor CBC daily. Qualifiers: Anemia type: unspecified type Qualified Code(s): D64.9 - Anemia, unspecified (3) Chronic kidney disease, stage 3 Current Visit: Yes Status: Chronic Assessment and plan: mild increase in creatinine Continue to monitor. (4) S/P AVR (aortic valve replacement) Current Visit: Yes Status: Chronic Assessment and plan: Re-do AVR in 2012 at [facility]. [facility] in 2010 minimal disease. Echo shows mechanical valve is well seated, functioning properly. - Time Spent With Patient 25 - 35 minutes - Subjective Interval history: patient was seen at the bedside this morning. Denies any abdominal pain, nausea or vomiting. no govind or blood in stool for now, has not had any bowel movement. Status post 2 units of blood transfusion , awaiting hb today/ INR ubtherapeutic at 1.6. planned for possible colonoscopy on friday. - Constitutional Vitals: Temp Pulse Resp BP Pulse Ox 98.2 F 92 17 116/62 100 06/02/16 11:52 06/02/16 11:52 06/02/16 11:52 06/02/16 11:52 06/02/16 11:52 General appearance: Present: A&O X 3, no acute distress Exam: HEENT: Oral mucosa is moist. conjunctival palor present. No scleral icterus Neck: No obvious neck swellings Lungs: Bilateral clear. Cardiac: Regular rate. Loud S2 Abdomen: Soft, non tender. Bowel sounds present Genitourinary: No montilla catheter Neurological: Alert and oriented. No gross localizing deficits Psych: Not aggressive or agitated Extremities: Trace leg edema Skin:has bruising in her limbs Internal Medicine: Result - Labs CBC & Chem 7: 06/01/16 04:15 06/01/16 04:15 - ABG Interpretation ABG results: PT/INR, D-dimer PT 18.0 Seconds (9.4-12.1) H 06/02/16 05:00 - VTE Reasons for not Prescribing Prophylaxis: Not indicated-Anticoagulated or INR therapeutic Consult Discharge Plan - Plan Referrals: Francisco Melgar Jr [Non-Partnered Physician] - 06/10/16 11:20 am (Please follow up as schedule...)
[2016-06-02] MEDS ORDERED: SODIUM CHLORIDE/NAHCO3/KCL/PEG 4,000 ML SOLN.RECON PO ONE (19:00)
[2016-06-02] MEDS: Heparin 25,000 UNIT/500 ML D5W 25,000 UNIT/500 ML MLS IVC SCH (21:32)
[2016-06-02] MEDS: *HR* Heparin 5,000 UNIT/ML VIAL IVP PRN (21:53)
[2016-06-03] MEDS: Ipratropium/Albuterol Neb 3 ML IH SCH ×6 (00:39→20:09)
[2016-06-03] MEDS: methylPREDNISolone 125 MG/2 ML VIAL IVP SCH ×2 (04:41→12:25)
[2016-06-03 04:50] LABS: Basophils % 0.1 %; Hematocrit 28.8 % (35.3-44.9); Hemoglobin 8.5 g/dL (11.5-15.4); Lymphocytes # 0.3 K/mcL (0.6-4.6); Lymphocytes % 3.1 %; Mean Corpuscular HGB Conc 29.5 g/dL (31.6-35.5); Mean Corpuscular Hemoglobin 25.6 pg (28.0-33.3); Mean Corpuscular Volume 86.7 fL (83.0-100.0); Mean Platelet Volume 9.7 fL (9.4-12.4); Monocytes # 0.2 K/mcL (0.0-1.3); Monocytes % 2.6 %; Neutrophils # 7.5 K/mcL (1.6-8.9); Nucleated Red Blood Cells 1.4 /100 WBC (0); Platelet Count 175 K/mcL (140-400); Red Blood Count 3.32 M/mcL (3.82-4.97); Segmented Neutrophils % 89.2 %
[2016-06-03 04:57] LABS: INR 1.8; Prothrombin Time 19.3 Seconds (9.4-12.1)
[2016-06-03 05:00] LABS: Activated Partial Thrombo Time 91.6 Seconds (26.0-36.0)
[2016-06-03 05:01] LABS: Calcium 8.9 mg/dL (8.6-10.8)
[2016-06-03 05:05] LABS: Potassium 2.5 mEq/L (3.5-4.5)
[2016-06-03] MEDS: Pantoprazole 40 MG VIAL IVP SCH ×2 (05:32→18:33)
[2016-06-03] MEDS: Folic Acid 1 MG TABLET PO SCH (09:06)
[2016-06-03] MEDS: Insulin LISPRO 300 UNITS/3 ML VIAL SQ SCH ×4 (09:06→21:13)
[2016-06-03] MEDS: *HR* Amiodarone 200 MG TABLET PO SCH (09:06)
[2016-06-03] MEDS: SACUBITRIL/VALSARTAN 24/26 MG TABLET PO SCH ×2 (09:06→21:17)
[2016-06-03] MEDS: Isosorbide MONOnitrate (24 HR) 30 MG TAB.ER.24H PO SCH (09:06)
[2016-06-03] MEDS: rOPINIRole 1 MG TABLET PO SCH ×2 (09:07→21:17)
[2016-06-03] MEDS: Furosemide 40 MG TABLET PO SCH ×2 (09:07→16:47)
[2016-06-03] MEDS: FLUoxetine 20 MG CAPSULE PO SCH ×2 (09:07→21:17)
[2016-06-03] MEDS: Iron Sucrose Complex 200 MG in 0.9 % Sodium Chloride 100 ML IVPB SCH (09:13)
[2016-06-03] MEDS: Potassium Chloride 40 MEQ, Lidocaine 1% 2 ML in D5% in Water 500 ML IVPB SCH ×3 (09:14→21:05)
--- NOTE | 2016-06-03 14:15 | Anesthesia Evaluation PreOp ---
Date of Encounter: 06/05/16 (case was cancelled) Time of Encounter: 14:50 - Past History Cardiac History: Arrhythmia, Other (AVR x 2 C 2011 showing minimal disease) Pulmonary History: Former smoker, COPD, Other (chronic bronchitis) Other Medical History: Diabetes Type II Anesthesia History: No Prior Anesthetic Complications : No Alcohol Use: none, occasionally Drug use: none Medications and Allergies Budesonide/Formoterol 160/4.5 [Symbicort] 2 puff IH BID 01/30/15 [History] FLUoxetine HCl [Prozac] 20 mg PO BID 01/30/15 [History] Isosorbide MONOnitrate (24 HR) [Imdur] 30 mg PO DAILY 01/30/15 [History] Furosemide [Lasix] 40 mg PO QPM 08/11/15 [History] Furosemide [Lasix] 80 mg PO QAM 08/11/15 [History] Oxycodone HCl/Acetaminophen [Percocet 10-325 mg Tablet] 1 tab PO Q6H PRN [History] Allopurinol [Zyloprim 300 MG] 300 mg PO DAILY 01/12/16 [History] Potassium Chloride [K-Tab ER] 20 meq PO BID 01/12/16 [History] Ropinirole HCl [Requip] 2 mg PO HS 01/12/16 [History] Sacubitril/Valsartan [Entresto 24 mg-26 mg Tablet] 1 tab PO BID 01/12/16 [ History] Calcium Carbonate [Calcium] 1,500 mg PO BID 04/22/16 [History] Gabapentin [Neurontin] 300 mg PO HS 04/22/16 [History] Ipratropium/Albuterol Neb [Duoneb] 3 ml IH Q6HR PRN 04/22/16 [History] Levothyroxine [Synthroid] 50 mcg PO DAILY 04/22/16 [History] Oxygen 2.5 l NS CONT 04/22/16 [History] Ranitidine HCl [Acid Rn Interventional] 150 mg PO BID 04/22/16 [History] Metoprolol [Lopressor] 12.5 mg PO BID #60 tablet 04/27/16 [Rx] Folic Acid 1 mg PO DAILY 05/28/16 [History] Warfarin [Coumadin] 5 mg PO DAILY 05/28/16 [History] Amiodarone [Cordarone] 200 mg PO BID 05/29/16 [History] Ascorbic Acid [Vitamin C] 250 mg PO DAILY 05/29/16 [History] Ferrous Sulfate [Iron] 325 mg PO DAILY 05/29/16 [History] Allergies albuterol Allergy (Verified 01/09/16 19:46) Drowsy Penicillins Allergy (Verified 01/09/16 19:46) Hives Sulfa (Sulfonamide Antibiotics) Allergy (Verified 01/09/16 19:46) Hives jello Adverse Reaction (Uncoded 01/09/16 19:46) Nausea - Meds/Allergy Pre-op Review Medications Reviewed: Yes Allergies Reviewed: Yes Beta Blockers on Current Med List: No Anesthesia Results - Labs 06/05/16 03:30 06/05/16 03:30 - Imaging EKG: report reviewed Anesthesia Exam vss Pain Scale Used: Numeric (1 - 10)
[2016-06-03 14:23] LABS: Basophils % 0.2 %; Hematocrit 27.9 % (35.3-44.9); Hemoglobin 8.4 g/dL (11.5-15.4); Immature Granulocytes % 3.2 % (0-4); Lymphocytes # 0.2 K/mcL (0.6-4.6); Lymphocytes % 2.9 %; Mean Corpuscular HGB Conc 30.1 g/dL (31.6-35.5); Mean Corpuscular Volume 86.4 fL (83.0-100.0); Mean Platelet Volume 10.3 fL (9.4-12.4); Monocytes # 0.2 K/mcL (0.0-1.3); Monocytes % 3.2 %; Neutrophils # 5.7 K/mcL (1.6-8.9); Nucleated Red Blood Cells 2.4 /100 WBC (0); Platelet Count 153 K/mcL (140-400); Red Blood Count 3.23 M/mcL (3.82-4.97); Red Cell Distribution Width 18.4 % (11.5-14.5); Segmented Neutrophils % 90.5 %
[2016-06-03 14:57] LABS: Potassium 2.6 mEq/L (3.5-4.5)
[2016-06-03] MEDS ORDERED: SODIUM CHLORIDE/NAHCO3/KCL/PEG 4,000 ML SOLN.RECON PO ONE (16:42)
--- NOTE | 2016-06-03 17:13 | Event Note ---
Date of Encounter: 06/03/16 Time of Encounter: 15:00 Pt scopes cancelled because of severe hypoakemia. Rec: tracie [place] of [facility]. restart heparin and hold 6 hrs before procedure.
--- NOTE | 2016-06-03 17:18 | Internal Med Progress Note ---
Date of Encounter: 06/03/16 Time of Encounter: 17:17 - Assessment and plan (1) Acute exacerbation of chronic obstructive airways disease Current Visit: Yes Status: Acute Assessment and plan: Patient sounds much better. Chest x-ray does not show any infiltrates. We will taper methylprednisone to daily today. plan to transition to oral tomorrow. will Continue the DuoNeb's (2) Anemia Current Visit: Yes Status: Acute Assessment and plan: Patient has history of AV malformation, which was repaired last here on October with Dr. Rojo. Patient presents with repeat black and tarry stools. Appears most likely secondary to GI bleed .Status post 2 units of blood transfusion, repeat hemoglobin stable. GI has been consulted colonoscopy canceled today due to severe hypokalemia. Plan to do colonoscopy tomorrow morning. Keep nothing by mouth past midnight. Qualifiers: Anemia type: unspecified type Qualified Code(s): D64.9 - Anemia, unspecified (3) Chronic kidney disease, stage 3 Current Visit: Yes Status: Chronic Assessment and plan: Creatinine stable. Continue to monitor. (4) S/P AVR (aortic valve replacement) Current Visit: Yes Status: Chronic Assessment and plan: Re-do AVR in 2012 at [facility]. [facility] in 2010 minimal disease. Echo shows mechanical valve is well seated, functioning properly. - Time Spent With Patient 25 - 35 minutes - Subjective Interval history: patient was seen at the bedside this morning. Denies any abdominal pain, nausea or vomiting. no govind or blood in stool for now. Status post 2 units of blood transfusion , hemoglobin has remained stable. INR subtherapeutic at 1. 8. Colonoscopy canceled today due to severe hypokalemia.. - Constitutional Vitals: Temp Pulse Resp BP Pulse Ox 98.2 F 112 18 102/62 96 06/03/16 16:53 06/03/16 16:53 06/03/16 16:53 06/03/16 16:53 06/03/16 16:53 General appearance: Present: A&O X 3, no acute distress Exam: HEENT: Oral mucosa is moist. conjunctival palor present. No scleral icterus Neck: No obvious neck swellings Lungs: Bilateral clear. Cardiac: Regular rate. Loud S2 Abdomen: Soft, non tender. Bowel sounds present Genitourinary: No montilla catheter Neurological: Alert and oriented. No gross localizing deficits Psych: Not aggressive or agitated Extremities: Trace leg edema Skin:has bruising in her limbs Internal Medicine: Result - Labs CBC & Chem 7: 06/03/16 14:10 06/03/16 14:37 Labs: Short CBC 06/03/16 06/03/16 Range/Units 04:40 14:10 WBC 8.4 6.3 (4.3-11.1) K/mcL Hgb 8.5 L 8.4 L (11.5-15.4) g/dL Hct 28.8 L 27.9 L (35.3-44.9) % Plt Count 175 153 (140-400) K/mcL Neutrophils # 7.5 5.7 (1.6-8.9) K/mcL BMP 06/03/16 06/03/16 04:40 14:37 Sodium 142 141 Potassium 2.5 L* 2.6 L Chloride 91 L 91 L Carbon Dioxide 39 H 37 H BUN 30 H D 32 H Creatinine 1.45 H 1.50 H Glucose 144 H 157 H Calcium 8.9 9.0 - ABG Interpretation ABG results: PT/INR, D-dimer PT 19.3 Seconds (9.4-12.1) H 06/03/16 04:40 - VTE Reasons for not Prescribing Prophylaxis: Not indicated-Anticoagulated or INR therapeutic Consult Discharge Plan - Plan Referrals: Francisco Melgar Jr [Non-Partnered Physician] - 06/10/16 11:20 am (Please follow up as schedule...)
[2016-06-03] MEDS ORDERED: *HR* LORazepam 2 MG/ML VIAL IVP STA (22:26)
[2016-06-03] MEDS ORDERED: Haloperidol Lactate 5 MG/ML VIAL IVP STA (22:45)
[2016-06-03] MEDS ORDERED: Furosemide 20 MG/2 ML VIAL IVP STA (22:46)
[2016-06-03] MEDS ORDERED: Furosemide 20 MG/2 ML VIAL IVP ONE (22:49)
[2016-06-03] MEDS ORDERED: Haloperidol Lactate 5 MG/ML VIAL ONE (22:49)
[2016-06-03] MEDS ORDERED: *HR* Metoprolol 5 MG/5 ML VIAL IVP ONE ×2 (23:30→23:32)
[2016-06-03] MEDS: *HR* Heparin 5,000 UNIT/ML VIAL IVP PRN (23:36)
--- NOTE | 2016-06-03 23:37 | Event Note ---
Date of Encounter: 06/03/16 Time of Encounter: 23:00 On-call hospitalist note: I was called to evaluate the patient for confusion/agitation. Patient apparently was seeing bats and cat in the room. She was trying to climb out of the bed and agitated. O?E: confused and agitated. B/L mid to lower zone crackles. She did not respond to ativan 1 mg x 1. haloperidol 2 mg was given. Lasix 20 mg IV given for pulmonary edema. CXR is consistent with pulmonary edema. Pt had hypokalemia during the day - replenished. will check BMP and Magnesium in the AM
[2016-06-04] MEDS: Ipratropium/Albuterol Neb 3 ML IH SCH ×7 (00:26→23:43)
[2016-06-04 04:20] LABS: Hematocrit 25.2 % (35.3-44.9); Hemoglobin 7.3 g/dL (11.5-15.4); Immature Granulocytes % 4.4 % (0-4); Lymphocytes # 0.3 K/mcL (0.6-4.6); Lymphocytes % 4.6 %; Mean Corpuscular Hemoglobin 25.6 pg (28.0-33.3); Mean Corpuscular Volume 88.4 fL (83.0-100.0); Mean Platelet Volume 10.5 fL (9.4-12.4); Monocytes # 0.4 K/mcL (0.0-1.3); Monocytes % 6.8 %; Neutrophils # 4.9 K/mcL (1.6-8.9); Nucleated Red Blood Cells 1.4 /100 WBC (0); Platelet Count 121 K/mcL (140-400); Red Blood Count 2.85 M/mcL (3.82-4.97); Segmented Neutrophils % 84.2 %
[2016-06-04 04:44] LABS: Calcium 8.7 mg/dL (8.6-10.8); Magnesium 1.5 mg/dL (1.6-2.6); Potassium 3.1 mEq/L (3.5-4.5)
[2016-06-04] MEDS ORDERED: Magnesium Sulfate 2 GM in D5% in Water 100 ML IVPB ONE (05:07)
[2016-06-04] MEDS: Pantoprazole 40 MG VIAL IVP SCH ×2 (05:17→18:46)
[2016-06-04] MEDS: Heparin 25,000 UNIT/500 ML D5W 25,000 UNIT/500 ML MLS IVC SCH ×2 (05:18→19:35)
[2016-06-04 05:37] LABS: Hematocrit 27.8 % (35.3-44.9)
[2016-06-04 05:46] LABS: ABG Base Excess 17.4 mEq/L (-2.0 to 3.0); ABG HCO3 42.7 mEQ/L (21-27); ABG Oxygen Saturation 100 % (95-98); ABG PCO2 56 mmHg (35-45); ABG PH 7.49 pH Units (7.32-7.45); ABG PO2 169 mmHg (85-104); ABG TCO2 44.4 mEq/L (20-26)
[2016-06-04 05:47] LABS: Blood Gas FiO2 36 %
[2016-06-04 06:08] LABS: Activated Partial Thrombo Time 229.9 Seconds (26.0-36.0)
[2016-06-04 06:39] LABS: Heparin anti-factor XA UFH 0.97 IU/mL (0.30-0.70)
[2016-06-04] MEDS ORDERED: methylPREDNISolone 125 MG/2 ML VIAL IVP SCH (07:00)
[2016-06-04] MEDS ORDERED: Potassium Chloride 40 MEQ, Lidocaine 1% 2 ML in D5% in Water 500 ML IVPB STA (07:48)
[2016-06-04] MEDS: *HR* Amiodarone 200 MG TABLET PO SCH (08:16)
[2016-06-04] MEDS: rOPINIRole 1 MG TABLET PO SCH ×2 (08:17→21:53)
[2016-06-04] MEDS: SACUBITRIL/VALSARTAN 24/26 MG TABLET PO SCH ×2 (08:17→21:53)
[2016-06-04] MEDS: FLUoxetine 20 MG CAPSULE PO SCH ×2 (08:17→21:53)
[2016-06-04] MEDS: Folic Acid 1 MG TABLET PO SCH (08:17)
[2016-06-04] MEDS: Furosemide 40 MG TABLET PO SCH ×2 (08:17→18:46)
[2016-06-04] MEDS: Isosorbide MONOnitrate (24 HR) 30 MG TAB.ER.24H PO SCH (08:18)
--- NOTE | 2016-06-04 08:59 | Internal Med Progress Note ---
Date of Encounter: 06/04/16 Time of Encounter: 08:20 - Assessment and plan (1) Acute encephalopathy Current Visit: Yes Status: Acute Assessment and plan: With acute delirium. Likely related to age/owning. Improved with Haldol. Will get CT scan of the head to rule out any acute causes. (2) Acute exacerbation of chronic obstructive airways disease Current Visit: Yes Status: Acute Assessment and plan: Improving. On September. On duo nebs. Will taper steroids. (3) Anemia Current Visit: Yes Status: Acute Assessment and plan: Acute on chronic due to acute blood loss. Hemoglobin levels have remained stable. Awaiting colonoscopy today. Most likely related to colonic angiodysplasia and anticoagulation. Moderate risk for complications. Qualifiers: Anemia type: other cause Other causes of anemia: acute posthemorrhagic Qualified Code(s): D62 - Acute posthemorrhagic anemia (4) DVT prophylaxis Current Visit: Yes Status: Acute Assessment and plan: On IV heparin (5) Chronic kidney disease, stage 3 Current Visit: Yes Status: Chronic (6) S/P AVR (aortic valve replacement) Current Visit: Yes Status: Chronic Assessment and plan: On IV heparin for anticoagulation due to presence of mechanical aortic valve. (7) Atrial fibrillation Current Visit: No Status: Chronic Assessment and plan: On amiodarone and metoprolol. Rate controlled. Qualifiers: Atrial fibrillation type: paroxysmal Qualified Code(s): I48.0 - Paroxysmal atrial fibrillation - Subjective Interval history: The patient is awake and alert at this time. She had developed acute delirium overnight and received Haldol with improvement in her symptoms. She is still having difficulty remembering what happened last night. Denies any hallucinations at this time. No headache. No focal numbness or weakness. No abdominal pain. No new episodes of melena or hematemesis. - Constitutional Vitals: Temp Pulse Resp BP Pulse Ox 97.9 F 84 18 103/49 96 06/04/16 04:54 06/04/16 04:54 06/04/16 04:54 06/04/16 04:54 06/04/16 04:54 General appearance: Present: cooperative, A&O X 2, no acute distress, answers questions appropriately - Respiratory Respiratory exam: Present: CTAB. Absent: accessory muscle use, rales, rhonchi, wheezes - Cardiovascular Cardiovascular exam: Present: RRR, +S1, +S2. Absent: diastolic murmur, gallop, rubs, systolic murmur - GI/Abdominal GI/Abdominal exam: Present: normal bowel sounds, soft, no peritoneal signs. Absent: distended, tenderness - Extremities Exam Extremities exam: Present: warm, radial pulses palpable and symetrical. Absent : calf tenderness, cyanotic, pedal edema - Neurological Exam Neurological exam: Present: alert, CN II-XII intact, no focal deficits. Absent : facial droop, speech deficit - Skin Skin exam: Present: dry, intact, pallor Internal Medicine: Result - Labs CBC & Chem 7: 06/04/16 05:21 06/04/16 04:05 Labs: Short CBC 06/03/16 06/04/16 06/04/16 Range/Units 14:10 04:05 05:21 WBC 6.3 5.9 (4.3-11.1) K/mcL Hgb 8.4 L 7.3 L 8.0 L (11.5-15.4) g/dL Hct 27.9 L 25.2 L 27.8 L (35.3-44.9) % Plt Count 153 121 L (140-400) K/mcL Neutrophils # 5.7 4.9 (1.6-8.9) K/mcL BMP 06/03/16 06/04/16 14:37 04:05 Sodium 141 141 Potassium 2.6 L 3.1 L Chloride 91 L 94 L Carbon Dioxide 37 H 41 H* BUN 32 H 34 H Creatinine 1.50 H 1.42 H Glucose 157 H 194 H Calcium 9.0 8.7 - ABG Interpretation ABG results: ABG ABG pH 7.49 pH Units (7.32-7.45) H 06/04/16 05:28 ABG pCO2 56 mmHg (35-45) H 06/04/16 05:28 ABG pO2 169 mmHg (85-104) H 06/04/16 05:28 ABG O2 Saturation 100 % (95-98) H 06/04/16 05:28 PT/INR, D-dimer PT 19.3 Seconds (9.4-12.1) H 06/03/16 04:40 - Impressions Impressions Chest X-Ray 06/03/16 23:08 IMPRESSION: Mild pulmonary edema. D/ / Garcia Mcintosh MD / Garcia Mcintohs MD Interpreting Provider: Garcia Mcintosh MD - VTE Reasons for not Prescribing Prophylaxis: Not indicated-Anticoagulated or INR therapeutic Consult Discharge Plan - Plan Referrals: Francisco Melgar Jr [Non-Partnered Physician] - 06/10/16 11:20 am (Please follow up as schedule...) - Attending Attestation This document has been at least partially created by theBench recognition technology by Dr. Kraft. Errors in grammar, wording or other phrases may exist. If errors are found after the documentation is signed, they will be addressed individually in the addendum section of this document when appropriate.
[2016-06-04] MEDS: Insulin LISPRO 300 UNITS/3 ML VIAL SQ SCH ×4 (10:43→21:57)
[2016-06-04] MEDS ORDERED: Lidocaine -MPF 2% 5 ML VIAL INFILT ONE (12:03)
[2016-06-04] MEDS ORDERED: *HR* Propofol 500 MG/50 ML BOTTLE IVC ONE (12:03)
[2016-06-04] MEDS ORDERED: *HR* Propofol 200 MG/20 ML VIAL IVP ONE (12:03)
[2016-06-04 13:11] LABS: INR 1.7; Prothrombin Time 18.2 Seconds (9.4-12.1)
[2016-06-04 13:14] LABS: Activated Partial Thrombo Time 26.2 Seconds (26.0-36.0)
[2016-06-04 13:19] LABS: Calcium 9.2 mg/dL (8.6-10.8)
[2016-06-04 13:21] LABS: Potassium 4.8 mEq/L (3.5-4.5)
--- NOTE | 2016-06-04 13:56 | Anesthesia Evaluation PreOp ---
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: Denies Any Significant HX Other Medical History: Diabetes Type II, GERD Anesthesia History: No Prior Anesthetic Complications, Past Anesthesia Alcohol Use: none, occasionally Drug use: none Medications and Allergies Budesonide/Formoterol 160/4.5 [Symbicort] 2 puff IH BID 01/30/15 [History] FLUoxetine HCl [Prozac] 20 mg PO BID 01/30/15 [History] Isosorbide MONOnitrate (24 HR) [Imdur] 30 mg PO DAILY 01/30/15 [History] Furosemide [Lasix] 40 mg PO QPM 08/11/15 [History] Furosemide [Lasix] 80 mg PO QAM 08/11/15 [History] Oxycodone HCl/Acetaminophen [Percocet 10-325 mg Tablet] 1 tab PO Q6H PRN [History] Allopurinol [Zyloprim 300 MG] 300 mg PO DAILY 01/12/16 [History] Potassium Chloride [K-Tab ER] 20 meq PO BID 01/12/16 [History] Ropinirole HCl [Requip] 2 mg PO HS 01/12/16 [History] Sacubitril/Valsartan [Entresto 24 mg-26 mg Tablet] 1 tab PO BID 01/12/16 [ History] Calcium Carbonate [Calcium] 1,500 mg PO BID 04/22/16 [History] Gabapentin [Neurontin] 300 mg PO HS 04/22/16 [History] Ipratropium/Albuterol Neb [Duoneb] 3 ml IH Q6HR PRN 04/22/16 [History] Levothyroxine [Synthroid] 50 mcg PO DAILY 04/22/16 [History] Oxygen 2.5 l NS CONT 04/22/16 [History] Ranitidine HCl [Acid Chief Clerk] 150 mg PO BID 04/22/16 [History] Metoprolol [Lopressor] 12.5 mg PO BID #60 tablet 04/27/16 [Rx] Folic Acid 1 mg PO DAILY 05/28/16 [History] Warfarin [Coumadin] 5 mg PO DAILY 05/28/16 [History] Amiodarone [Cordarone] 200 mg PO BID 05/29/16 [History] Ascorbic Acid [Vitamin C] 250 mg PO DAILY 05/29/16 [History] Ferrous Sulfate [Iron] 325 mg PO DAILY 05/29/16 [History] Allergies albuterol Allergy (Verified 01/09/16 19:46) Drowsy Penicillins Allergy (Verified 01/09/16 19:46) Hives Sulfa (Sulfonamide Antibiotics) Allergy (Verified 01/09/16 19:46) Hives jello Adverse Reaction (Uncoded 01/09/16 19:46) Nausea - Meds/Allergy Pre-op Review Medications Reviewed: Yes Allergies Reviewed: Yes Beta Blockers on Current Med List: Yes If Beta Blockers taken, Date/Time (Last Dose taken): 06/04/2016 at 0817 Anesthesia Results - Labs 06/04/16 05:21 06/04/16 12:56 - Imaging EKG: report reviewed (05/31/2016 A-Fib, IV conduction delay) Additional studies: 04/22/2016 Echo LVEF 55% mildly dilated LV mild LV diastolic dysfunction mechanical AV appears well seated in LVOT mean gradient 20 mmHg 07/14/2014 Echo Impressions: Severely dilated left ventricle. Severe LV systolic dysfunction, LVEF 30%. There is diffuse hypokinesis of all myocardial segments. Elevated LV filling pressures. Normal right ventricular size with moderate RV hypokinesis. There is a device lead seen in the right atrium and right ventricle. Mildly dilated left atrium. Bioprosthetic aortic valve replacement with normal function. Moderate mitral regurgitation. No evidence of pulmonary hypertension. Anesthesia Exam Vital Signs/O2 Sat/Glucose, Most Recent Temp Pulse Resp BP Pulse Ox 98.0 F 110 20 102/65 100 06/04/16 13:49 06/04/16 13:49 06/04/16 13:49 06/04/16 13:49 06/04/16 13:49 Blood Glucose* 217 Height: 5'/1.52 m Weight: 211 lbs/96 kg NPO (# of Hours): 8 Pain Scale: 0 Pain Scale Used: Numeric (1 - 10) - HEENT Pupil (Motor): EOMI Mallampati: II Teeth: Edentulous Oral Opening: Greater than 3 - [employer] MANAGER LOC: Disoriented [employer] MANAGER Motor: Normal RUE, Normal LUE, Normal RLE, Normal Face, Deficit LLE [employer] MANAGER Sensory: Normal: RUE, LUE, RLE, LLE, Face - Cardiac Rhythm: Irregular Murmur: None - Pulmonary Breath Sounds: bilateral Clear Respiratory Effort: Symmetrical Anesthesia Assess/Plan ASA Score: 4 Modified Alie Scale for Level of Consciousness: Drowsy, but responsive to commands Anesthetic Plan: MAC Monitoring Plan: Standard Monitors
[2016-06-04] MEDS ORDERED: FLU VACC QS2016-17 36MOS UP/PF 0.5 ML SYRINGE IM ONE (14:03)
[2016-06-04] MEDS ORDERED: *HR* FentaNYL (PF) 100 MCG/2 ML VIAL ONE (14:30)
--- NOTE | 2016-06-04 18:33 | Electrocardiograph Report ---
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
[2016-06-04] MEDS: risperiDONE 0.25 MG TABLET PO SCH (21:53)
[2016-06-05 01:59] LABS: Activated Partial Thrombo Time 114.4 Seconds (26.0-36.0)
[2016-06-05 02:06] LABS: Heparin anti-factor XA UFH 0.68 IU/mL (0.30-0.70)
[2016-06-05] MEDS: Ipratropium/Albuterol Neb 3 ML IH SCH ×5 (03:48→21:05)
[2016-06-05 04:09] LABS: Basophils % 0.1 %; Mean Corpuscular Hemoglobin 25.9 pg (28.0-33.3); Nucleated Red Blood Cells 0.3 /100 WBC (0)
[2016-06-05 04:10] LABS: Hematocrit 28.5 % (35.3-44.9); Hemoglobin 8.1 g/dL (11.5-15.4); Immature Granulocytes % 2.1 % (0-4); Lymphocytes # 0.6 K/mcL (0.6-4.6); Lymphocytes % 4.5 %; Mean Corpuscular HGB Conc 28.4 g/dL (31.6-35.5); Mean Corpuscular Volume 91.1 fL (83.0-100.0); Mean Platelet Volume 10.9 fL (9.4-12.4); Monocytes # 0.7 K/mcL (0.0-1.3); Monocytes % 5.5 %; Neutrophils # 11.3 K/mcL (1.6-8.9); Platelet Count 117 K/mcL (140-400); Red Blood Count 3.13 M/mcL (3.82-4.97); Segmented Neutrophils % 87.8 %
[2016-06-05 04:20] LABS: Calcium 8.9 mg/dL (8.6-10.8)
[2016-06-05 04:25] LABS: Potassium 3.7 mEq/L (3.5-4.5)
[2016-06-05 05:28] LABS: Anisocytosis 1+ (Not Present); Hypochromasia Present (Not Present); Large Platelets Present (Not Present); Platelet Estimate Slight Decrease (Normal)
[2016-06-05] MEDS: Pantoprazole 40 MG VIAL IVP SCH ×2 (05:50→18:20)
[2016-06-05] MEDS: Insulin LISPRO 300 UNITS/3 ML VIAL SQ SCH ×4 (08:23→20:22)
[2016-06-05] MEDS: *HR* Enoxaparin 150 MG/ML SYRINGE SQ SCH (08:52)
[2016-06-05] MEDS: FLUoxetine 20 MG CAPSULE PO SCH ×2 (08:53→20:19)
[2016-06-05] MEDS: SACUBITRIL/VALSARTAN 24/26 MG TABLET PO SCH (08:53)
[2016-06-05] MEDS: Folic Acid 1 MG TABLET PO SCH (08:53)
[2016-06-05] MEDS: rOPINIRole 1 MG TABLET PO SCH ×2 (08:53→20:20)
[2016-06-05] MEDS: *HR* Amiodarone 200 MG TABLET PO SCH (08:53)
[2016-06-05] MEDS: predniSONE 20 MG TABLET PO SCH (08:53)
[2016-06-05] MEDS: Furosemide 40 MG TABLET PO SCH ×2 (08:54→18:20)
[2016-06-05] MEDS: Isosorbide MONOnitrate (24 HR) 30 MG TAB.ER.24H PO SCH (08:54)
--- NOTE | 2016-06-05 09:34 | Internal Med Progress Note ---
Date of Encounter: 06/05/16 Time of Encounter: 08:25 - Assessment and plan (1) Anemia Current Visit: Yes Status: Acute Assessment and plan: Hemoglobin levels are stable. No further episodes of bleeding. No active bleeding detected on upper GI endoscopy and colonoscopy. Continue to monitor blood counts. Moderate risk for complications. Qualifiers: Anemia type: other cause Other causes of anemia: acute posthemorrhagic Qualified Code(s): D62 - Acute posthemorrhagic anemia (2) Acute encephalopathy Current Visit: Yes Status: Resolved Assessment and plan: This has resolved. Likely from delirium (3) Acute exacerbation of chronic obstructive airways disease Current Visit: Yes Status: Acute Assessment and plan: Tapering steroids. Leukocytosis likely from steroid use. Continue nebs as needed (4) DVT prophylaxis Current Visit: Yes Status: Acute (5) Chronic kidney disease, stage 3 Current Visit: Yes Status: Chronic Assessment and plan: Renal function is stable (6) S/P AVR (aortic valve replacement) Current Visit: Yes Status: Chronic Assessment and plan: Will start patient on subcutaneous Lovenox and does adrenally. Stop IV heparin. Resume Coumadin. Target INR 2.5-3.5 (7) Atrial fibrillation Current Visit: No Status: Chronic Assessment and plan: Sinus rhythm. Continue metoprolol and amiodarone Qualifiers: Atrial fibrillation type: paroxysmal Qualified Code(s): I48.0 - Paroxysmal atrial fibrillation - Subjective Interval history: Patient feels much better today. Denies any new complaints at this time. No melena or hematemesis. Underwent colonoscopy yesterday. Since post procedure. Tolerating diet well. - Constitutional Vitals: Temp Pulse Resp BP Pulse Ox 97.8 F 101 17 118/64 97 06/05/16 07:53 06/05/16 07:53 06/05/16 07:53 06/05/16 07:53 06/05/16 07:53 General appearance: Present: cooperative, A&O X 3, no acute distress, answers questions appropriately - Neck Neck exam general surgery: Present: supple, trachea midline. Absent: lymphadenopathy - Respiratory Respiratory exam: Present: CTAB. Absent: accessory muscle use, rales, rhonchi, wheezes - Cardiovascular Cardiovascular exam: Present: RRR, +S1, +S2. Absent: diastolic murmur, gallop, rubs, systolic murmur - GI/Abdominal GI/Abdominal exam: Present: normal bowel sounds, soft, no peritoneal signs. Absent: distended, tenderness - Extremities Exam Extremities exam: Present: warm, radial pulses palpable and symetrical. Absent : calf tenderness, cyanotic, pedal edema - Neurological Exam Neurological exam: Present: alert, oriented X3, no focal deficits. Absent: facial droop, speech deficit Internal Medicine: Result - Labs CBC & Chem 7: 06/05/16 03:30 06/05/16 03:30 Labs: Short CBC 06/05/16 Range/Units 03:30 WBC 12.9 H D (4.3-11.1) K/mcL Hgb 8.1 L (11.5-15.4) g/dL Hct 28.5 L (35.3-44.9) % Plt Count 117 L (140-400) K/mcL Neutrophils # 11.3 H (1.6-8.9) K/mcL BMP 06/04/16 06/05/16 12:56 03:30 Sodium 142 145 Potassium 4.8 H D 3.7 D Chloride 95 L 97 L Carbon Dioxide 38 H 39 H BUN 29 H 32 H Creatinine 1.39 H 1.34 H Glucose 211 H 112 H Calcium 9.2 8.9 - ABG Interpretation ABG results: ABG ABG pH 7.49 pH Units (7.32-7.45) H 06/04/16 05:28 ABG pCO2 56 mmHg (35-45) H 06/04/16 05:28 ABG pO2 169 mmHg (85-104) H 06/04/16 05:28 ABG O2 Saturation 100 % (95-98) H 06/04/16 05:28 PT/INR, D-dimer PT 18.2 Seconds (9.4-12.1) H 06/04/16 12:56 - Impressions Impressions Head CT 06/04/16 11:00 IMPRESSION: No acute intracranial abnormality. Mild acute left maxillary sinusitis. Mild cerebral atrophy appropriate for age. Mild periventricular chronic ischemic white matter changes also age-appropriate. No change in the appearance of the brain since the prior study. D/ / Cortez Spencer MD / Cortez Spencer MD Interpreting Provider: Cortez Spencer MD - VTE Reasons for not Prescribing Prophylaxis: Not indicated-Anticoagulated or INR therapeutic Documentation of Mechanical Device: Venous foot pump, device Consult Discharge Plan - Plan Referrals: Francisco Melgar Jr [Non-Partnered Physician] - 06/10/16 11:20 am (Please follow up as schedule...) - Attending Attestation This document has been at least partially created by Numerate recognition technology by Dr. Kraft. Errors in grammar, wording or other phrases may exist. If errors are found after the documentation is signed, they will be addressed individually in the addendum section of this document when appropriate.
[2016-06-05] MEDS ORDERED: *HR* Warfarin 5 MG TABLET PO SCH (18:00)
[2016-06-05] MEDS: *HR* OxyCODONE/APAP 10/325 TABLET PO PRN (20:19)
[2016-06-05] MEDS: risperiDONE 0.25 MG TABLET PO SCH (20:20)
[2016-06-06] MEDS: SACUBITRIL/VALSARTAN 24/26 MG TABLET PO SCH ×2 (00:18→07:57)
[2016-06-06] MEDS: Ipratropium/Albuterol Neb 3 ML IH SCH ×3 (00:51→08:11)
[2016-06-06] MEDS: *HR* OxyCODONE/APAP 10/325 TABLET PO PRN (04:48)
[2016-06-06 06:56] VITALS: BP 105/63
[2016-06-06] MEDS: Pantoprazole 40 MG VIAL IVP SCH (07:00)
[2016-06-06] MEDS: rOPINIRole 1 MG TABLET PO SCH (07:56)
[2016-06-06] MEDS: Insulin LISPRO 300 UNITS/3 ML VIAL SQ SCH (07:56)
[2016-06-06] MEDS: FLUoxetine 20 MG CAPSULE PO SCH (07:57)
[2016-06-06] MEDS: Furosemide 40 MG TABLET PO SCH (07:57)
[2016-06-06] MEDS: Isosorbide MONOnitrate (24 HR) 30 MG TAB.ER.24H PO SCH (07:57)
[2016-06-06] MEDS: predniSONE 20 MG TABLET PO SCH (07:58)
[2016-06-06] MEDS: Folic Acid 1 MG TABLET PO SCH (07:58)
[2016-06-06] MEDS: *HR* Enoxaparin 150 MG/ML SYRINGE SQ SCH (07:58)
[2016-06-06] MEDS: *HR* Amiodarone 200 MG TABLET PO SCH (07:58)
[2016-06-06 08:22] LABS: INR 1.9; Prothrombin Time 21.1 Seconds (9.4-12.1)
[2016-06-06 08:29] LABS: Calcium 8.8 mg/dL (8.6-10.8); Potassium 3.3 mEq/L (3.5-4.5)
[2016-06-06 08:52] LABS: Hematocrit 27.9 % (35.3-44.9); Immature Platelets 5.9 % (1.1-6.1); Mean Corpuscular HGB Conc 28.7 g/dL (31.6-35.5); Mean Corpuscular Hemoglobin 26.1 pg (28.0-33.3); Mean Corpuscular Volume 90.9 fL (83.0-100.0); Mean Platelet Volume 11.2 fL (9.4-12.4); Nucleated Red Blood Cells 0.3 /100 WBC (0); Platelet Count 102 K/mcL (140-400); Red Blood Count 3.07 M/mcL (3.82-4.97); Red Cell Distribution Width 20.7 % (11.5-14.5)
--- NOTE | 2016-06-06 09:04 | Discharge Summary ---
Date of Encounter: 06/06/16 Time of Encounter: 08:40 - Discharge Diagnosis (1) Acute exacerbation of chronic obstructive airways disease Priority: Primary Status: Acute (2) Anemia Priority: Secondary Status: Acute Qualifiers: Anemia type: other cause Other causes of anemia: acute posthemorrhagic Qualified Code(s): D62 - Acute posthemorrhagic anemia (3) Acute encephalopathy Priority: Secondary Status: Resolved (4) DVT prophylaxis Priority: Secondary Status: Acute (5) Chronic kidney disease, stage 3 Priority: Secondary Status: Chronic (6) S/P AVR (aortic valve replacement) Priority: Secondary Status: Chronic (7) Atrial fibrillation Priority: Secondary Status: Chronic Qualifiers: Atrial fibrillation type: paroxysmal Qualified Code(s): I48.0 - Paroxysmal atrial fibrillation - Discharge Medications Prescriptions: Enoxaparin [Lovenox] 90 mg SQ DAILY #4 syr Ferrous Sulfate 325 mg PO BIDWM #60 tablet PredniSONE 10 mg PO DAILY 9 Days Home Medications: Budesonide/Formoterol 160/4.5 [Symbicort] 2 puff IH BID 01/30/15 [History] FLUoxetine HCl [Prozac] 20 mg PO BID 01/30/15 [History] Isosorbide MONOnitrate (24 HR) [Imdur] 30 mg PO DAILY 01/30/15 [History] Furosemide [Lasix] 40 mg PO QPM 08/11/15 [History] Furosemide [Lasix] 80 mg PO QAM 08/11/15 [History] Oxycodone HCl/Acetaminophen [Percocet 10-325 mg Tablet] 1 tab PO Q6H PRN [History] Allopurinol [Zyloprim 300 MG] 300 mg PO DAILY 01/12/16 [History] Potassium Chloride [K-Tab ER] 20 meq PO BID 01/12/16 [History] Ropinirole HCl [Requip] 2 mg PO HS 01/12/16 [History] Sacubitril/Valsartan [Entresto 24 mg-26 mg Tablet] 1 tab PO BID 01/12/16 [ History] Calcium Carbonate [Calcium] 1,500 mg PO BID 04/22/16 [History] Gabapentin [Neurontin] 300 mg PO HS 04/22/16 [History] Ipratropium/Albuterol Neb [Duoneb] 3 ml IH Q6HR PRN 04/22/16 [History] Levothyroxine [Synthroid] 50 mcg PO DAILY 04/22/16 [History] Oxygen 2.5 l NS CONT 04/22/16 [History] Metoprolol [Lopressor] 12.5 mg PO BID #60 tablet 04/27/16 [Rx] Folic Acid 1 mg PO DAILY 05/28/16 [History] Warfarin [Coumadin] 5 mg PO DAILY 05/28/16 [History] Amiodarone [Cordarone] 200 mg PO BID 05/29/16 [History] Ascorbic Acid [Vitamin C] 250 mg PO DAILY 05/29/16 [History] Ferrous Sulfate [Iron] 325 mg PO DAILY 05/29/16 [History] Enoxaparin [Lovenox] 90 mg SQ DAILY #4 syr 06/06/16 [Rx] Ferrous Sulfate 325 mg PO BIDWM #60 tablet 06/06/16 [Rx] PredniSONE 10 mg PO DAILY 9 Days 06/06/16 [Rx] Allergies/Adverse Reactions: Allergies albuterol Allergy (Verified 01/09/16 19:46) Drowsy Penicillins Allergy (Verified 01/09/16 19:46) Hives Sulfa (Sulfonamide Antibiotics) Allergy (Verified 01/09/16 19:46) Hives jello Adverse Reaction (Uncoded 01/09/16 19:46) Nausea Procedures/tests Complete & Pending: Procedures Performed prior 72 hours Category Date Time Status CT head/brain wo con [CT] Routine Cat Scan 06/04/16 11:00 Completed EKG [ECG 12 lead ECG] [ECG] Stat Y 06/03/16 23:28 Completed Date of admission: 05/28/16 21:27 Primary care physician: PCP NO Consults: 05/29/16 09:40 Consult to Gastroenterology [CONS] Routine Consulting Provider: Gastroenterology Deyanira Reason for Consult: please evaluate for possible GIB and symptomatic anemia in this patient with h/o AVM small bowel. thank you Call Completed: Yes 05/31/16 05:52 Consult to Invasive Line Access Team [CONS] Stat Reason for Consult: limited vascular access Line Type: EPIV 06/04/16 12:28 Consult to Occupational Therapy [CONS] Routine Comment: Evaluate, develop and implement POC Consult to Physical Therapy [CONS] Routine Comment: Evaluate, develop and implement POC 06/05/16 11:44 Consult to Lead Driver [CONS] Routine Reason for SW Consult: therapy reccomends inpt swing Discharging clinician: Delano Kraft Anticipated date of discharge: 06/06/16 - Patient Status Disposition: Home Health Service Condition: Good Functional capacity at discharge: uses cane/walker Overall status at discharge: patient is progressing back to baseline - Discharge Instructions Instructions: Prednisone (By mouth), Enoxaparin (Injection), Chronic Obstructive Pulmonary Disease (DC), Anemia (GEN) Follow Up With: Clinic, Anticoagulation [Other] - 06/11/16 8:15 am Francisco Melgar Jr [Non-Partnered Physician] - 06/10/16 11:20 am (Please follow up as schedule...) - Diet and Activity Activity: as per physical therapy, wear oxygen at all times Diet: diabetic diet, low fat, low cholesterol, low salt diet Hospital course: Ms. Higginbotham is a 75 year old female with history of atrial fibrillation, COPD, mechanical aortic valve replacement, on chronic Coumadin therapy for anticoagulation was admitted here with acute exacerbation of COPD and hematochezia. Her Coumadin was stopped and patient was placed on IV heparin while her blood counts were followed closely. She also received treatment for COPD with intravenous steroids, nebulizer treatments and O2 supplementation. She required 2 units packed red blood cell transfusion. She then underwent upper GI endoscopy and colonoscopy which did not show any acute bleeding. Patient does have a history of angiodysplasia and she had one nonbleeding lesion that was cauterized in her colon. She also had another lesion in her duodenum which was again cauterized. Both of these lesions for nonbleeding. Since then patient has been placed back on Coumadin with stable hemoglobin counts and no further episodes of hematochezia. Her COPD is also improving. Patient does have chronic respiratory failure and is on home oxygen but she will continue to use. Clinically the patient is stable for discharge. She was evaluated by physical therapy and recommended inpatient rehabilitation. However patient does not wish to go to rehabilitation and instead wants to go home. Home health will be arranged for the patient. Patient is at high risk for complications given that she will be on Coumadin for anticoagulation and her history of angiodysplasia. She cannot stop anticoagulation due to mechanical aortic valve. Patient understands this risk. Also her COPD appears to be end-stage given her degree of chronic respiratory failure and she does have an increased risk for readmission. She also developed delirium during her stay here and was treated with risperidone. This seems to have subsided. Patient may have underlying early dementia. As the patient's hemoglobin levels were stable and patient is off her baseline oxygen supplementation, she will be discharged today with home health and will follow up with her primary care provider for further management. Her INR today is 1.9. She will receive another dose of Lovenox today and will continue Coumadin and lovenox till INR 2.5-2.5. - Time Spent with Patient Total time spent providing and/or coordinating discharge services: Greater than 30 minutes (45 min) - Constitutional Vitals: Temp Pulse Resp BP Pulse Ox 98 F 115 18 105/63 97 06/06/16 06:55 06/06/16 06:55 06/06/16 08:11 06/06/16 06:55 06/06/16 08:11 General appearance: Present: cooperative, A&O X 3, no acute distress, answers questions appropriately - Respiratory Respiratory exam: Present: CTAB. Absent: accessory muscle use, rales, rhonchi, wheezes - GI/Abdominal GI/Abdominal exam: Present: normal bowel sounds, soft, no peritoneal signs. Absent: distended, tenderness - Extremities Exam Extremities exam: Present: warm, radial pulses palpable and symetrical. Absent : calf tenderness, cyanotic, pedal edema - Neurological Exam Neurological exam: Present: alert, oriented X3, no focal deficits, strengths equal and symetr throughout. Absent: facial droop, speech deficit - VTE Reasons for not Prescribing Prophylaxis: Not indicated-Anticoagulated or INR therapeutic Documentation of Mechanical Device: Venous foot pump, device - Attending Attestation This document has been at least partially created by [employer] recognition technology by Dr. Kraft. Errors in grammar, wording or other phrases may exist. If errors are found after the documentation is signed, they will be addressed individually in the addendum section of this document when appropriate.
--- NOTE | 2016-06-06 09:18 | Physician Discharge Referral ---
Home Health/Hosp Referral Info Transfer to: Home Health - Diagnosis (1) Acute exacerbation of chronic obstructive airways disease Priority: Primary Status: Acute (2) Anemia Priority: Secondary Status: Acute (3) Acute encephalopathy Priority: Secondary Status: Resolved (4) DVT prophylaxis Priority: Secondary Status: Acute (5) Chronic kidney disease, stage 3 Priority: Secondary Status: Chronic (6) S/P AVR (aortic valve replacement) Priority: Secondary Status: Chronic (7) Atrial fibrillation Priority: Secondary Status: Chronic - Respiratory Orders Oxygen / L per min (2-3) Smoking Cessation: Smoking cessation has been advised. For more information, call the [place] Tobacco Quit Line at 8-449-RDDL-NOW. - Diet/Nutrition Diet/Nutrition Orders: Cardiac (And diabetic), No Concentrated Sweets - Activity Activity Orders: Walker - Services Needed Following services are medically necessary services: Nursing, Physical Therapy, Occupational Therapy - Transfer Medications Prescriptions: Ferrous Sulfate 325 mg PO BIDWM #60 tablet PredniSONE 10 mg PO DAILY 9 Days Home Medications: Budesonide/Formoterol 160/4.5 [Symbicort] 2 puff IH BID 01/30/15 [History] FLUoxetine HCl [Prozac] 20 mg PO BID 01/30/15 [History] Isosorbide MONOnitrate (24 HR) [Imdur] 30 mg PO DAILY 01/30/15 [History] Furosemide [Lasix] 40 mg PO QPM 08/11/15 [History] Furosemide [Lasix] 80 mg PO QAM 08/11/15 [History] Oxycodone HCl/Acetaminophen [Percocet 10-325 mg Tablet] 1 tab PO Q6H PRN [History] Allopurinol [Zyloprim 300 MG] 300 mg PO DAILY 01/12/16 [History] Potassium Chloride [K-Tab ER] 20 meq PO BID 01/12/16 [History] Ropinirole HCl [Requip] 2 mg PO HS 01/12/16 [History] Sacubitril/Valsartan [Entresto 24 mg-26 mg Tablet] 1 tab PO BID 01/12/16 [ History] Calcium Carbonate [Calcium] 1,500 mg PO BID 04/22/16 [History] Gabapentin [Neurontin] 300 mg PO HS 04/22/16 [History] Ipratropium/Albuterol Neb [Duoneb] 3 ml IH Q6HR PRN 04/22/16 [History] Levothyroxine [Synthroid] 50 mcg PO DAILY 04/22/16 [History] Oxygen 2.5 l NS CONT 04/22/16 [History] Metoprolol [Lopressor] 12.5 mg PO BID #60 tablet 04/27/16 [Rx] Folic Acid 1 mg PO DAILY 05/28/16 [History] Warfarin [Coumadin] 5 mg PO DAILY 05/28/16 [History] Amiodarone [Cordarone] 200 mg PO BID 05/29/16 [History] Ascorbic Acid [Vitamin C] 250 mg PO DAILY 05/29/16 [History] Ferrous Sulfate [Iron] 325 mg PO DAILY 05/29/16 [History] Ferrous Sulfate 325 mg PO BIDWM #60 tablet 06/06/16 [Rx] PredniSONE 10 mg PO DAILY 9 Days 06/06/16 [Rx] Allergies/Adverse Reactions: Allergies albuterol Allergy (Verified 01/09/16 19:46) Drowsy Penicillins Allergy (Verified 01/09/16 19:46) Hives Sulfa (Sulfonamide Antibiotics) Allergy (Verified 01/09/16 19:46) Hives jello Adverse Reaction (Uncoded 01/09/16 19:46) Nausea Certification: Further, I certify that my clinical findings support that this patient is homebound (i.e. absences from home require considerable and taxing effort and are for medical reasons or confucianist services or infrequently or short duration when for other reasons) because: Homebound Reason: Patient requires assistance of a person or device to safely leave home, Severity of cardiac or pulmonary status limits activity tolerance Attestation: My signature below is to certify that this patient is under my care and that I, or nurse practitioner, or a physician's gallery assistant working with me, has a face-to -face encounter with this patient.
[2016-06-06 09:41] LABS: Lymphocytes # 0.5 K/mcL (0.6-4.6); Monocytes # 0.5 K/mcL (0.0-1.3); Neutrophils # 10.8 K/mcL (1.6-8.9)
[2016-06-06 09:43] LABS: Platelet Estimate Decreased (Normal)
[2016-06-06 09:46] LABS: Basophilic Stippling 2+ (Not Present)
[2016-06-06 09:50] LABS: Hypochromasia Present (Not Present); Polychromasia 1+ (Not Present)
== END 2016-06-06 10:43 | disposition home or self-care (01) | DRG 377 ==
LOC: 2ANU 15:01 → EMEROO 15:01 → 2ANU 18:09 → SUATTDRO 21:27
PROVIDERS: ADMIT Family Medicine; ATTEND Internal Medicine

== ENCOUNTER 2016-06-07 20:00 | Inpatient (IN) ==
[2016-06-07 20:55] LABS: Bilirubin,Urine Negative (Negative); Blood,Urine Negative (Negative); Clarity,Urine Clear (Clear); Color,Urine Yellow (Yellow); Glucose,Urine (UA) Normal (Normal); Ketones,Urine Negative (Negative); Leukocyte Esterase,Urine Small (Negative); Nitrite,Urine Negative (Negative); Protein,Urine Negative (Neg-Trace); Specific Gravity,Urine 1.011 (1.010-1.025); Urobilinogen,Urine Normal (Normal)
[2016-06-07 20:57] LABS: Bacteria,Urine Few per hpf (None-Few); Hyaline Casts,Urine None Seen per lpf (None-Few); RBC,Urine 0-3 per hpf (0-3); Squamous Epithelial Cell,Urine Many per lpf (None-Few)
[2016-06-07] MEDS ORDERED: 0.9 % Sodium Chloride 500 ML IV ONE (21:02)
[2016-06-07 21:27] LABS: Basophils % 0.1 %; Hemoglobin 6.6 g/dL (11.5-15.4); Lymphocytes % 5.5 %; Red Cell Distribution Width 21.5 % (11.5-14.5)
[2016-06-07 21:29] LABS: Hematocrit 22.8 % (35.3-44.9); Immature Granulocytes % 1.7 % (0-4); Immature Platelets 7.3 % (1.1-6.1); Lymphocytes # 0.7 K/mcL (0.6-4.6); Mean Corpuscular HGB Conc 28.9 g/dL (31.6-35.5); Mean Corpuscular Hemoglobin 27.2 pg (28.0-33.3); Mean Corpuscular Volume 93.8 fL (83.0-100.0); Mean Platelet Volume 11.7 fL (9.4-12.4); Monocytes # 0.6 K/mcL (0.0-1.3); Neutrophils # 11.1 K/mcL (1.6-8.9); Red Blood Count 2.43 M/mcL (3.82-4.97); Segmented Neutrophils % 87.7 %
[2016-06-07 21:32] LABS: INR 2.4; Prothrombin Time 26.8 Seconds (9.4-12.1)
--- NOTE | 2016-06-07 21:34 | Emergency Department Note ---
Disposition Clinical Impression: Hematoma Anemia Qualifiers: Anemia type: unspecified type Qualified Code(s): D64.9 - Anemia, unspecified Abdominal pain Qualifiers: Abdominal location: left lower quadrant Qualified Code(s): R10.32 - Left lower quadrant pain Disposition: Admitted As Inpatient Condition: Fair Abdominal Pain HPI - General Chief Complaint: ED Abdominal Pain Stated Complaint: LLQ pain Time Seen by Provider: 06/07/16 20:30 Source: patient Mode of arrival: ambulatory Limitations: no limitations Nursing Notes Reviewed: Yes Vital Signs Reviewed: Yes - History of Present Illness HPI Narrative: Patient here for evaluation of left lower quadrant abdominal pain. Approximate 1 week. Patient had rectal bleeding and what had an upper and lower GI scope. Patient recently discharged from the [facility] and is now complaining of left lower quadrant abdominal pain is severe in nature. Patient has had nausea but no vomiting. No current bloody bowel movements. Pain Scale: 9 - Related Data Home Medications Medication Instructions Recorded Confirmed Budesonide/Formoterol 160/4.5 2 puff IH BID 01/30/15 05/29/16 [Symbicort] FLUoxetine HCl [Prozac] 20 mg PO BID 01/30/15 05/29/16 Isosorbide MONOnitrate (24 HR) 30 mg PO DAILY 01/30/15 05/29/16 [Imdur] Furosemide [Lasix] 40 mg PO QPM 08/11/15 05/29/16 Furosemide [Lasix] 80 mg PO QAM 08/11/15 05/29/16 Oxycodone HCl/Acetaminophen 1 tab PO Q6H PRN 08/12/15 05/29/16 [Percocet 10-325 mg Tablet] Allopurinol [Zyloprim 300 MG] 300 mg PO DAILY 01/12/16 05/29/16 Potassium Chloride [K-Tab ER] 20 meq PO BID 01/12/16 05/29/16 Ropinirole HCl [Requip] 2 mg PO HS 01/12/16 05/29/16 Sacubitril/Valsartan [Entresto 24 1 tab PO BID 01/12/16 05/29/16 mg-26 mg Tablet] Calcium Carbonate [Calcium] 1,500 mg PO BID 04/22/16 05/29/16 Gabapentin [Neurontin] 300 mg PO HS 04/22/16 05/29/16 Ipratropium/Albuterol Neb [Duoneb] 3 ml IH Q6HR PRN 04/22/16 05/29/16 Levothyroxine [Synthroid] 50 mcg PO DAILY 04/22/16 05/29/16 Oxygen 2.5 l NS CONT 04/22/16 05/29/16 Folic Acid 1 mg PO DAILY 05/28/16 05/29/16 Warfarin [Coumadin] 5 mg PO DAILY 05/28/16 05/29/16 Amiodarone [Cordarone] 200 mg PO BID 05/29/16 05/29/16 Ascorbic Acid [Vitamin C] 250 mg PO DAILY 05/29/16 05/29/16 Ferrous Sulfate [Iron] 325 mg PO DAILY 05/29/16 05/29/16 Previous Rx's Medication Instructions Recorded Metoprolol [Lopressor] 12.5 mg PO BID #60 tablet 04/27/16 Enoxaparin [Lovenox] 90 mg SQ DAILY #4 syr 06/06/16 Ferrous Sulfate 325 mg PO BIDWM #60 tablet 06/06/16 PredniSONE 10 mg PO DAILY 9 Days 06/06/16 Allergies Allergy/AdvReac Type Severity Reaction Status Date / Time albuterol Allergy Drowsy Verified 01/09/16 19:46 Penicillins Allergy Hives Verified 01/09/16 19:46 Sulfa (Sulfonamide Allergy Hives Verified 01/09/16 19:46 Antibiotics) jello AdvReac Nausea Uncoded 01/09/16 19:46 All systems ED: reviewed and negative except as stated. Gastrointestinal: Reports: abdominal pain, nausea. Denies: vomiting, diarrhea, melena Abdominal Pain PMH - Past Medical History Medical history: Reports: cancer, CHF, COPD, diabetes, GI bleed, valvular heart disease, other Female Surgical History: Reports: appendectomy, breast surgery, coronary bypass (CABG), heart valve replacement, hysterectomy, pacemaker/AICD ORDAINED MINISTER history: Reports: no ORDAINED MINISTER history Psychiatric history: Reports: anxiety, depression - Social History Smoking status: Never smoker Alcohol use: Reports: none Drug use: Reports: none Physical Exam - General Limitations: no limitations General appearance: alert, in no apparent distress Course - Reevaluation(s) Reevaluation #1: Patient with anemia of 6.6. CT scan shows rectal sheath hematoma with extension into the abdomen with blood along the para-colic gutter. Central line placed in the right femoral vein. 2 units of blood transfused. Will discuss with on-call surgeon. Elevated troponin. Will obtain EKG and may possibly need to trend while in the hospital. - Consultations Consultation #1: Discussed with Dr. Taylor. Pt to be medically managed at this time. He will consult on the patient tomorrow only if called by the Hospitalist. Consultation #2: Discussed with Dr. Rosales. Pt accepted to the ICU. Start 1U of FFP. Consultation #3: Discussed with interventional radiology, Dr. Harris. There are personal injury litigation paralegal and happy to see the patient whenever appropriate. Hospitalist may consult them in the am when INR 1.5. Vital Signs Temperature 98.2 F 06/07/16 20:29 Pulse Rate 100 06/07/16 20:29 Respiratory Rate 18 06/07/16 20:29 Blood Pressure 77/50 06/07/16 20:29 O2 Sat by Pulse Oximetry 88 L 06/07/16 20:29 Temperature 98.3 F 06/08/16 00:22 Pulse Rate 106 06/08/16 00:54 Respiratory Rate 18 06/08/16 01:04 Blood Pressure 100/64 06/08/16 01:04 O2 Sat by Pulse Oximetry 100 06/08/16 00:54 Oxygen Delivery Oxygen Delivery Nasal Cannula Procedures - Central Line Placement Right Femoral Central Line Inserted*: Yes Central Line Insertion: emergent Consent Obtained: verbal consent Procedural Pause: verify patient name and date of , timeout performed per policy, izabela and assess the site, assemble equipment and verify supplies, perform hand hygiene Patient Placed on Monitor/Pulse Ox: Yes During the Procedure: clinician is wearing sterile gloves, cap, mask,& gown during insertion, sterile field and sterile technique are maintained, patient's face is covered with drape or mask and wearing a cap, everyone in room is wearing a mask Central Line Prep: Chlorhexidine scrub Prep the Procedure Site: apply chloraprep to the skin using a back and forth scrubbing motion, apply chloraprep for 30 seconds (upper body), 1-2 min ( femoral sites), allow prep to dry, drape the patient with a full body drape Local Anesthetic: lidocaine 1% Amount of anesthesia used (mL): 4 (cc) Ultrasound Used for Placement: Yes Central Line Lumen Inserted: triple Post Procedure: sutured in place, good blood return, all ports aspirated, flushed, capped, sterile dressing applied, guide wire removed and visualized, dressing is dated Patient Tolerated Procedure: well Complications: none Abdominal Pain - Medical Records Medical records reviewed: Yes I reviewed the patient's medical records. - Lab Data Lab results reviewed: Yes I reviewed the patient's lab results. Result diagrams: 06/07/16 21:19 06/07/16 21:19 Lab Results 06/07/16 06/07/16 06/07/16 Range/Units 20:30 21:19 21:19 WBC 12.6 H (4.3-11.1) K/mcL RBC 2.43 L (3.82-4.97) M/mcL Hgb 6.6 L (11.5-15.4) g/dL Hct 22.8 L (35.3-44.9) % MCV 93.8 (83.0-100.0) fL MCH 27.2 L (28.0-33.3) pg MCHC 28.9 L (31.6-35.5) g/dL RDW 21.5 H (11.5-14.5) % Plt Count 87 L (140-400) K/mcL MPV 11.7 (9.4-12.4) fL Immature Gran % 1.7 (0-4) % Seg Neutrophils % 87.7 % Lymphocytes % 5.5 % Monocytes % 5.0 % Eosinophils % 0.0 % Basophils % 0.1 % Neutrophils # 11.1 H (1.6-8.9) K/mcL Lymphocytes # 0.7 (0.6-4.6) K/mcL Monocytes # 0.6 (0.0-1.3) K/mcL Eosinophils # 0.0 (0.0-0.6) K/mcL Basophils # 0.0 (0.0-0.2) K/mcL Platelet Estimate Decreased L (Normal) Immature Plt Fraction 7.3 H (1.1-6.1) % Hypochromasia Present A (Not Present) PT 26.8 H (9.4-12.1) Seconds INR 2.4 Sodium (136-145) mEq/L Potassium (3.5-4.5) mEq/L Chloride (98-109) mEq/L Carbon Dioxide (19-29) mEq/L BUN (7-20) mg/dL Creatinine (0.57-1.11) mg/dL Est GFR ( Amer) (> 60) Est GFR (Non-Af Amer) (> 60) BUN/Creatinine Ratio (6-26) Glucose (70-99) mg/dL Calculated Osmolality (280-300) Calcium (8.6-10.8) mg/dL Total Bilirubin (0.2-1.2) mg/dL Direct Bilirubin (0.0-0.5) mg/dL Indirect Bilirubin (0.0-1.2) mg/dL AST (5-34) Units/L ALT (0-55) Units/L Alkaline Phosphatase (38-126) Units/L Troponin I (0-0.03) ng/mL Serum Total Protein (6.0-8.3) g/dL Albumin (3.5-5.0) g/dL Globulin (2.4-3.5) g/dL Albumin/Globulin Ratio (1.1-2.2) Lipase (8-78) Units/L Urine Color Yellow (Yellow) Urine Clarity Clear (Clear) Urine pH 7.0 (5.0-8.0) pH Units Ur Specific [place] 1.011 (1.010-1.025) Urine Protein Negative (Neg-Trace) mg/dL Urine Glucose (UA) Normal (Normal) mg/dL Urine Ketones Negative (Negative) mg/dL Urine Blood Negative (Negative) Urine Nitrite Negative (Negative) Urine Bilirubin Negative (Negative) Urine Urobilinogen Normal (Normal) mg/dL Ur Leukocyte Esterase Small H (Negative) Urine Microscopic RBC 0-3 (0-3) per hpf Urine Microscopic WBC 5-15 H (0-3) per hpf Ur Squamous Epith Cells Many H (None-Few) per lpf Urine Bacteria Few (None-Few) per hpf Hyaline Casts None Seen (None-Few) per lpf Ur Culture Indicated? YES A (NO) Blood Type Antibody Screen 06/07/16 06/07/16 06/07/16 Range/Units 21:19 21:19 23:39 WBC (4.3-11.1) K/mcL RBC (3.82-4.97) M/mcL Hgb (11.5-15.4) g/dL Hct (35.3-44.9) % MCV (83.0-100.0) fL MCH (28.0-33.3) pg MCHC (31.6-35.5) g/dL RDW (11.5-14.5) % Plt Count (140-400) K/mcL MPV (9.4-12.4) fL Immature Gran % (0-4) % Seg Neutrophils % % Lymphocytes % % Monocytes % % Eosinophils % % Basophils % % Neutrophils # (1.6-8.9) K/mcL Lymphocytes # (0.6-4.6) K/mcL Monocytes # (0.0-1.3) K/mcL Eosinophils # (0.0-0.6) K/mcL Basophils # (0.0-0.2) K/mcL Platelet Estimate (Normal) Immature Plt Fraction (1.1-6.1) % Hypochromasia (Not Present) PT (9.4-12.1) Seconds INR Sodium 142 (136-145) mEq/L Potassium 3.6 (3.5-4.5) mEq/L Chloride 94 L (98-109) mEq/L Carbon Dioxide 41 H* (19-29) mEq/L BUN 34 H (7-20) mg/dL Creatinine 1.78 H (0.57-1.11) mg/dL Est GFR ( Amer) 33 L (> 60) Est GFR (Non-Af Amer) 28 L (> 60) BUN/Creatinine Ratio 19 (6-26) Glucose 136 H (70-99) mg/dL Calculated Osmolality 304 H (280-300) Calcium 8.8 (8.6-10.8) mg/dL Total Bilirubin 1.2 (0.2-1.2) mg/dL Direct Bilirubin 0.5 (0.0-0.5) mg/dL Indirect Bilirubin 0.7 (0.0-1.2) mg/dL AST 34 (5-34) Units/L ALT 18 (0-55) Units/L Alkaline Phosphatase 45 (38-126) Units/L Troponin I 0.08 H* (0-0.03) ng/mL Serum Total Protein 4.8 L (6.0-8.3) g/dL Albumin 2.6 L (3.5-5.0) g/dL Globulin 2.2 L (2.4-3.5) g/dL Albumin/Globulin Ratio 1.2 (1.1-2.2) Lipase 25 (8-78) Units/L Urine Color (Yellow) Urine Clarity (Clear) Urine pH (5.0-8.0) pH Units Ur Specific [place] (1.010-1.025) Urine Protein (Neg-Trace) mg/dL Urine Glucose (UA) (Normal) mg/dL Urine Ketones (Negative) mg/dL Urine Blood (Negative) Urine Nitrite (Negative) Urine Bilirubin (Negative) Urine Urobilinogen (Normal) mg/dL Ur Leukocyte Esterase (Negative) Urine Microscopic RBC (0-3) per hpf Urine Microscopic WBC (0-3) per hpf Ur Squamous Epith Cells (None-Few) per lpf Urine Bacteria (None-Few) per hpf Hyaline Casts (None-Few) per lpf Ur Culture Indicated? (NO) Blood Type O POSITIVE Antibody Screen NEGATIVE - Radiology Data Radiology results reviewed: Yes I reviewed the patient's radiology results. - EKG Data EKG attestation: Yes I reviewed and interpreted this EKG. EKG results narrative: EKG shows atrial fibrillation with a ventricular rate of 99. QRS 125. QTC 441. No significant ST elevation or depression. Patient has inverted T waves in the lateral leads. Critical Care Time Critical Care Time: Yes Total Critical Care Time: 60 Attestation: Critical care performed: Time is exclusive of separately billable procedures. Time includes: direct patient care, patient reassessment, coordination of patient care, interpretation of data (laboratory data, radiology data, and respiratory data), review of patient's medical records, medical consultation and documentation of patient care. Procedures included in critical care time: Procedures excluded from critical care time: Right femoral central line placement Attestation Statement - Attestation Attestation: I, Fadi Nathan MD, personally performed a history and physical exam of the patient and discussed their management with the resident. I reviewed the resident's note and agree with the documented findings, medical decision making , and plan of care. 75-year-old female presents to the emergency department with a complaint of left lower abdominal pain which started yesterday. Patient was just discharged from the hospital yesterday. She presented with GI bleeding and received blood about 10 days ago. She had an endoscopy 2 days ago. She states that the abdominal pain started yesterday before she went home from the hospital but has gotten worse throughout the day today. On examination patient is a well-developed elderly female in no acute distress. She is alert and oriented 3. There is no cyanosis or diaphoresis. Breath sounds are equal bilaterally. Heart regular rate and rhythm. Abdomen is soft with bruising to the left mid abdomen and a firm mass in this area which is tender to palpation. Labs reviewed. CT of the abdomen and pelvis shows a hematoma of the rectus sheath extending down into the pelvis with some intra-abdominal hemorrhage in the pelvis. A right femoral central line was placed by Dr. Olivera. Blood transfusion initiated while patient in the emergency department. The surgeon personal injury litigation paralegal, Dr. taylor, was consulted and recommended admission by the hospitalist for medical management. The hospitalist, Dr. Leroy, was consulted and accepted admission the patient to ICU.
[2016-06-07 21:41] LABS: Albumin 2.6 g/dL (3.5-5.0); Albumin/Globulin Ratio 1.2 (1.1-2.2); Bilirubin,Direct 0.5 mg/dL (0.0-0.5); Bilirubin,Indirect 0.7 mg/dL (0.0-1.2); Bilirubin,Total 1.2 mg/dL (0.2-1.2); Calcium 8.8 mg/dL (8.6-10.8); Globulin 2.2 g/dL (2.4-3.5); Potassium 3.6 mEq/L (3.5-4.5); Total Protein 4.8 g/dL (6.0-8.3)
[2016-06-07 21:43] LABS: Platelet Count 87 K/mcL (140-400)
[2016-06-07 21:44] LABS: Hypochromasia Present (Not Present); Platelet Estimate Decreased (Normal)
[2016-06-08] MEDS ORDERED: 0.9 % Sodium Chloride 500 ML ONE (00:01)
[2016-06-08] MEDS ORDERED: Acetaminophen 325 MG TABLET PO PRN (02:33)
[2016-06-08] MEDS ORDERED: *HR* Morphine 2 MG/ML SYRINGE IVP PRN (02:33)
[2016-06-08] MEDS ORDERED: Naloxone 0.4 MG/ML INJ IVP PRN ×2 (02:33→03:09)
[2016-06-08] MEDS ORDERED: Ipratropium/Albuterol Neb 3 ML IH PRN (02:44)
--- NOTE | 2016-06-08 02:59 | Internal Med History&Physical ---
Addendum entered and electronically signed by Natalee Bolton DO 06/09 08:07: Correction: CT scan read left rectus sheath hematoma with extension into pelvis. Assessment: Rectus sheath hematoma and anemia Original Note: <Natalee Bolton - Last Filed: 06/08/16 05:46> Date of Encounter: 06/08/16 Time of Encounter: 02:59 Assessment and Plan (1) Hematoma of rectum Current visit: Yes Status: Acute Patient found to have rectal sheath hematoma with extension into the abdomen. Patient is currently hemodynamically stable. INR 2.4, Hgb 6.6, platelets 87. The emergency room physicians discussed the case with IR and they said they would be happy to consult and to call when patient's IR is less than 1.5. 1. NPO 2. Consult to IR after reversing INR. 3. 2 units FFP. Recheck INR 2 hours after completion. 4. 2 units PRBC. Recheck H&H 2 hours after completion 5. 2 units platelets 6. Medication for pain Qualifiers: Encounter type: initial encounter Qualified Code(s): S36.62XA - Contusion of rectum, initial encounter (2) Anemia Current visit: No Status: Chronic Hemoglobin 6.6. Patient currently hemodyncamiclay stable. Will transfuse 2 units and recheck H&H. 1. Type and screen 2. Transfuse 2 units PRBCs 3. Recheck H&H after 2nd unit Qualifiers: Anemia type: other cause Other causes of anemia: chronic disease, other Qualified Code(s): D63.8 - Anemia in other chronic diseases classified elsewhere (3) Elevated troponin Current visit: No Status: Acute Patient with elevated troponin of0.08. EKG shows atrial fibrillation, rate controlled. No signs of acute ischemia. Will trend troponins. 1. Trend troponins every 6 hours x 3. (4) Atrial fibrillation Current visit: No Status: Chronic Patient with atrial fibrillation, rate controlled and on anticoagulation. Will stop all anticoagulation medications. 1. Continue to monitor heart rhythm. 2. Stop all anticoagulation medications 3. Consult to cardiology for further recommendations. Qualifiers: Atrial fibrillation type: paroxysmal Qualified Code(s): I48.0 - Paroxysmal atrial fibrillation (5) Chronic anticoagulation Current visit: No Status: Chronic On chronic anticoagulation for atrial fibrillation and aortic valve. Will stop all anticoagulation due to bleeding. (6) S/P AVR (aortic valve replacement) Current visit: No Status: Chronic Patient s/p aortic valve replacement and on anticoagulation. Will stop all anticoagulation due to the bleeding. (7) SON (acute kidney injury) Current visit: No Status: Resolved Patient with SON. Creatinine1.78 compared to 1.42 previously. 1. 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 Higginbotham is a 75 year old female with PMH including HTN, atrial fibrillation of coagulation, mechanical atrial valve, GI bleed from AVM, AICD/pacemaker in place , COPD with chronic respiratory failure, CHF and diabetes. Patient was recently discharged on 06/06/2016 after evaluation for blood loose anemia and black stools. She had a Hgb of 6.1 on that admission and required 2 units PRBC. She had an upper and lower GI scope that were both negative and discharged in stable condition. Patient presents today with left lower quadrant pain for the past 3-4 days. She states that the pain go progressively worse since her scopes to the point that she was unable to walk this morning. Patient reports associated nausea but no vomiting. She states that she has not had a bowel movement and she is not passing gas. She also reports dizziness and lightheadedness today. Patient denies fever/chills, changes in vision, chest pain, or changes in bladder function. In the ED, patient had a HR of 99-107, RR 16-18, and blood pressure 77-100/50- 64. She was found to have a hemoglobin of 6.6 and platelets of 87. Her INR is 2.4. Troponin 0.08 (previously 0.01) CT scan showed and rectal sheath hematoma with extension in the abdomen. On exam, patient is awake and alert, conversing appropriately. Heart is in atrial fibrillation but rate controlled. Lungs largely clear to auscultation. Abdomen diffusely tender but most tender in the left lower quadrant and left upper quadrant with involuntary guarding. No rigidity or rebound. No pedal edema. Past Med Surg Social Fam HX - Past Medical History Medical history: cancer, CHF, COPD, diabetes, GI bleed, valvular heart disease, other Psychiatric history: anxiety, depression - Past Surgical History Surgical History: appendectomy, breast surgery, coronary bypass (CABG), heart valve replacement, hysterectomy, pacemaker/AICD - Social History Smoking Status: Former smoker Smokeless Tobacco Status: No Alcohol use: none Drug use: none - Family History Mother History Unknown: Yes Family Member Ethnicity: Non- Living Status: Age at : 74 Hx Family Cardiac Disorders: No Hx Family Respiratory Disorders: No Hx Family Cancer: Yes Hx Family GI Disorders: No Hx Family Endocrine Disorder: No Hx Family Neuromuscular Disorders: No Hx Family Neurologic Disorders: No Hx Family HEENT Disorders: No Hx Family Autoimmune Disorders: No Father History Unknown: Yes Living Status: Age at : 52 Hx Family Cardiac Disorders: Yes Hx Family Respiratory Disorders: No Hx Family Cancer: Yes Hx Family GI Disorders: No Hx Family Endocrine Disorder: No Hx Family Neuromuscular Disorders: No Hx Family Neurologic Disorders: No Hx Family HEENT Disorders: No Hx Family Autoimmune Disorders: No Internal Medicine - H&P: Meds Budesonide/Formoterol 160/4.5 [Symbicort] 2 puff IH BID 01/30/15 [History] FLUoxetine HCl [Prozac] 20 mg PO BID 01/30/15 [History] Isosorbide MONOnitrate (24 HR) [Imdur] 30 mg PO DAILY 01/30/15 [History] Furosemide [Lasix] 40 mg PO QPM 08/11/15 [History] Furosemide [Lasix] 80 mg PO QAM 08/11/15 [History] Oxycodone HCl/Acetaminophen [Percocet 10-325 mg Tablet] 1 tab PO Q6H PRN [History] Allopurinol [Zyloprim 300 MG] 300 mg PO DAILY 01/12/16 [History] Potassium Chloride [K-Tab ER] 20 meq PO BID 01/12/16 [History] Ropinirole HCl [Requip] 2 mg PO HS 01/12/16 [History] Sacubitril/Valsartan [Entresto 24 mg-26 mg Tablet] 1 tab PO BID 01/12/16 [ History] Calcium Carbonate [Calcium] 1,500 mg PO BID 04/22/16 [History] Gabapentin [Neurontin] 300 mg PO HS 04/22/16 [History] Ipratropium/Albuterol Neb [Duoneb] 3 ml IH Q6HR PRN 04/22/16 [History] Levothyroxine [Synthroid] 50 mcg PO DAILY 04/22/16 [History] Oxygen 2.5 l NS CONT 04/22/16 [History] Metoprolol [Lopressor] 12.5 mg PO BID #60 tablet 04/27/16 [Rx] Folic Acid 1 mg PO DAILY 05/28/16 [History] Warfarin [Coumadin] 5 mg PO DAILY 05/28/16 [History] Amiodarone [Cordarone] 200 mg PO BID 05/29/16 [History] Ascorbic Acid [Vitamin C] 250 mg PO DAILY 05/29/16 [History] Ferrous Sulfate [Iron] 325 mg PO DAILY 05/29/16 [History] Enoxaparin [Lovenox] 90 mg SQ DAILY #4 syr 06/06/16 [Rx] Ferrous Sulfate 325 mg PO BIDWM #60 tablet 06/06/16 [Rx] PredniSONE 10 mg PO DAILY 9 Days 06/06/16 [Rx] Allergies albuterol Allergy (Verified 01/09/16 19:46) Drowsy Penicillins Allergy (Verified 01/09/16 19:46) Hives Sulfa (Sulfonamide Antibiotics) Allergy (Verified 01/09/16 19:46) Hives jello Adverse Reaction (Uncoded 01/09/16 19:46) Nausea All Systems PM: A 10-system review of systems was performed and is negative for pertinent findings except as documented above in the HPI. - Constitutional Constitutional: fatigue, weakness, no chills, no fever(s) - EENT Eyes: no blurry vision, no change in vision, no loss of vision - Cardiovascular Cardiovascular ROS IM: irregular heart rhythm, no dyspnea, no edema, no palpitations - Respiratory Respiratory: no cough, no dyspnea, no wheezing - Gastrointestinal Gastrointestinal: abdominal pain, constipation, nausea, no diarrhea, no hematemesis, no vomiting - Genitourinary Genitourinary: urinary frequency, urinary urgency, no dysuria - Neurological Neurological ROS: dizziness, no confusion, no headache(s) - Constitutional Vitals: Temp Pulse Resp BP Pulse Ox 99.0 F 99 16 114/99 100 06/08/16 02:45 06/08/16 02:45 06/08/16 02:45 06/08/16 02:45 06/08/16 02:45 General appearance: Present: A&O X 3, pleasant, no acute distress, answers questions appropriately - Head Head exam: Present: atraumatic, normal inspection, normocephalic - Eye Eye exam: Present: EOMI, normal appearance - ENT ENT exam: Present: mucous membranes moist - Respiratory Respiratory exam: Present: CTAB. Absent: respiratory distress, wheezes - Cardiovascular Cardiovascular exam: Present: irregular rhythm - GI/Abdominal GI/Abdominal exam: Present: guarding, normal bowel sounds, soft, tenderness. Absent: rebound, rigid - Extremities Exam Extremities exam: Present: normal inspection. Absent: pedal edema - Neurological Exam Neurological exam: Present: alert, CN II-XII intact, oriented X3 Internal Med - H&P Results - Labs CBC & Chem 7: 06/07/16 21:19 06/08/16 04:10 <Trent Leroy - Last Filed: 06/08/16 06:48> Date of Encounter: 06/08/16 Internal Medicine - H&P: HPI History of present illness: Ms. Higginbotham is a 75 year old female All Systems PM: A 10-system review of systems was performed and is negative for pertinent findings except as documented above in the HPI. - Constitutional Vitals: Temp Pulse Resp BP Pulse Ox 97.7 F 94 14 98/63 94 L 06/08/16 06:44 06/08/16 06:44 06/08/16 06:44 06/08/16 06:44 06/08/16 06:44 Internal Med - H&P Results - Labs CBC & Chem 7: 06/07/16 21:19 06/08/16 04:10 Labs: BMP 06/08/16 04:10 Sodium 143 Potassium 3.5 Chloride 96 L Carbon Dioxide 40 H* BUN 31 H Creatinine 1.49 H Glucose 108 H Calcium 8.1 L Cardiac Enzymes 06/08/16 Range/Units 04:10 Troponin I 0.05 H* (0-0.03) ng/mL - Attending Attestation I examined this patient and my medical decision-making was reviewed with the Resident Physician, Dr. Bolton. I agree with the documented findings, disposition and treatment plan as described except to the extent set forth below. Patient presented to the hospital with left flank pain. On exam she is in no acute distress awake alert oriented speaking in full sentences. Heart is irregular S1 and S2 abdomen soft mildly tender to palpation in the left flank with no guarding or rebound tenderness. CT scan of the abdomen was personally reviewed and reveals a large rectus sheath hematoma extending into the pelvis. Plan: We will need to reverse the coagulopathy secondary to warfarin. Consult IR in the morning for possible need for coiling. Monitor hemoglobin and hematocrit and hemodynamics. She is at high risk for morbidity and mortality and complications due to coagulopathy significant bleed and need for radiological studies with IV contrast.
[2016-06-08] MEDS ORDERED: Ondansetron 4 MG/2 ML VIAL IVP PRN (03:09)
[2016-06-08] MEDS: *HR* OxyCODONE/APAP 10/325 TABLET PO PRN ×2 (04:22→13:48)
[2016-06-08] MEDS: Pantoprazole 40 MG VIAL IVP SCH ×2 (04:22→18:29)
[2016-06-08 04:35] LABS: Calcium 8.1 mg/dL (8.6-10.8); Potassium 3.5 mEq/L (3.5-4.5)
[2016-06-08] MEDS: Ipratropium/Albuterol Neb 3 ML IH SCH ×4 (05:17→22:09)
[2016-06-08] MEDS ORDERED: 0.9 % Sodium Chloride 250 ML ONE ×2 (06:20→09:08)
[2016-06-08] MEDS: FLUoxetine 20 MG CAPSULE PO SCH ×2 (08:10→20:02)
[2016-06-08] MEDS: predniSONE 10 MG TABLET PO SCH (08:11)
[2016-06-08 09:23] LABS: Hematocrit 24.6 % (35.3-44.9); Hemoglobin 7.3 g/dL (11.5-15.4)
[2016-06-08 09:34] LABS: INR 2.1; Prothrombin Time 22.7 Seconds (9.4-12.1)
[2016-06-08] MEDS: Budesonide/Formoterol 160/4.5 MDI IH SCH ×2 (10:47→22:09)
--- NOTE | 2016-06-08 11:02 | Cardiology Consult Note ---
Date of Encounter: 06/08/16 Time of Encounter: 10:59 Assessment and Plan (1) Atrial fibrillation Current Visit: Yes Status: Acute Patient has chronic atrial fibrillation. Heart rates are low 100's presently which most likely attributed to her present condition. She was previously on beta lauryn which was held due to hypotension. However, she is hemodynamically stable with SBP's 110's. I recommend restarting lopressor 12.5mg BID. She was also on Amiodarone initiated during a recent hospitalization for inappropriate ICD discharge due to AF RVR. Her device parameters were changed to avoid future shocks. Amiodarone does not need to be restarted at this time especially in light of being off of anticoagulation. In that regard, her CHADSVASC score is 4 making her at increased annual risk for CVA. However, given profound anemia and bleeding I agree with stopping coumadin at this time. This can be re-evaluated as an outpatient. Qualifiers: Atrial fibrillation type: chronic Qualified Code(s): I48.2 - Chronic atrial fibrillation (2) H/O aortic valve replacement Current Visit: Yes Status: Acute I reviewed the operative notes for this patient's aortic valve replacement in 2013 done at [facility]. She had a re-do AVR replacement with a bioprosthetic aortic valve and not a mechanical valve. This document is scanned into [employer] Patient Documents. Therefore, full anticoagulation is not absolutely necessary and can be stopped in this setting. She should be restarted on low dose aspirin when clinical status improves. Would consider reintroducing prior to discharge if appropriate. Discussion w patient/family: The assessment and plan as outlined above was discussed with the patient and/or family members who expressed understanding and agreement. All questions were answered. Thank you for involving us in the care of your patient. Please call with any questions. We will sign off. Please call with questions. History of Present Illness Consult date: 06/08/16 Requesting physician: Natalee Bolton Consult reason: Anticoagulation, AFIB Chief complaint: Abdominal discomfort History of present illness: Ms. Higginbotham is a 75 year old female presenting with abdominal discomfort. She was recently discharged on 06/06/2016 after evaluation for anemia. She had an unremarkable GI evaluation and no source of active bleed. She states that her pain became progressively worse precipitating ER evaluation. Upon presentation she was found to have Hgb 6.6, INR 2.4. A CT of the Abd/P demonstrated a significant left rectus sheath hematoma with extension. She has been hemodynamically stable and supported with blood products. At the bedside, the patient states that her abdominal discomfort has improved. She is not having chest pain or palpitations. Past Med Surg Social Fam HX - Past Medical History Medical history: atrial fibrillation, cancer, CHF, COPD, diabetes, GI bleed, valvular heart disease, other Psychiatric history: anxiety, depression - Past Surgical History Surgical History: appendectomy, breast surgery, coronary bypass (CABG), heart valve replacement, hysterectomy, pacemaker/AICD - Social History Smoking Status: Former smoker Smokeless Tobacco Status: No Alcohol use: none Drug use: none - Family History Mother History Unknown: Yes Family Member Ethnicity: Non- Living Status: Age at : 74 Hx Family Cardiac Disorders: No Hx Family Respiratory Disorders: No Hx Family Cancer: Yes Hx Family GI Disorders: No Hx Family Endocrine Disorder: No Hx Family Neuromuscular Disorders: No Hx Family Neurologic Disorders: No Hx Family HEENT Disorders: No Hx Family Autoimmune Disorders: No Father History Unknown: Yes Living Status: Age at : 52 Hx Family Cardiac Disorders: Yes Hx Family Respiratory Disorders: No Hx Family Cancer: Yes Hx Family GI Disorders: No Hx Family Endocrine Disorder: No Hx Family Neuromuscular Disorders: No Hx Family Neurologic Disorders: No Hx Family HEENT Disorders: No Hx Family Autoimmune Disorders: No Medications and Allergies Budesonide/Formoterol 160/4.5 [Symbicort] 2 puff IH BID 01/30/15 [History] FLUoxetine HCl [Prozac] 20 mg PO BID 01/30/15 [History] Isosorbide MONOnitrate (24 HR) [Imdur] 30 mg PO DAILY 01/30/15 [History] Furosemide [Lasix] 40 mg PO QPM 08/11/15 [History] Furosemide [Lasix] 80 mg PO QAM 08/11/15 [History] Oxycodone HCl/Acetaminophen [Percocet 10-325 mg Tablet] 1 tab PO Q6H PRN [History] Allopurinol [Zyloprim 300 MG] 300 mg PO DAILY 01/12/16 [History] Potassium Chloride [K-Tab ER] 20 meq PO BID 01/12/16 [History] Ropinirole HCl [Requip] 2 mg PO HS 01/12/16 [History] Sacubitril/Valsartan [Entresto 24 mg-26 mg Tablet] 1 tab PO BID 01/12/16 [ History] Calcium Carbonate [Calcium] 1,500 mg PO BID 04/22/16 [History] Gabapentin [Neurontin] 300 mg PO HS 04/22/16 [History] Ipratropium/Albuterol Neb [Duoneb] 3 ml IH Q6HR PRN 04/22/16 [History] Levothyroxine [Synthroid] 50 mcg PO DAILY 04/22/16 [History] Oxygen 2.5 l NS CONT 04/22/16 [History] Metoprolol [Lopressor] 12.5 mg PO BID #60 tablet 04/27/16 [Rx] Folic Acid 1 mg PO DAILY 05/28/16 [History] Warfarin [Coumadin] 5 mg PO DAILY 05/28/16 [History] Amiodarone [Cordarone] 200 mg PO BID 05/29/16 [History] Ascorbic Acid [Vitamin C] 250 mg PO DAILY 05/29/16 [History] Enoxaparin [Lovenox] 90 mg SQ DAILY #4 syr 06/06/16 [Rx] Ferrous Sulfate 325 mg PO BIDWM #60 tablet 06/06/16 [Rx] PredniSONE 10 mg PO DAILY 9 Days 06/06/16 [Rx] Allergies albuterol Allergy (Verified 01/09/16 19:46) Drowsy Penicillins Allergy (Verified 01/09/16 19:46) Hives Sulfa (Sulfonamide Antibiotics) Allergy (Verified 01/09/16 19:46) Hives jello Adverse Reaction (Uncoded 01/09/16 19:46) Nausea All Systems Review: A 10-system review of systems was performed and is negative for pertinent findings except as documented above in the HPI. Physical Examination Vital Signs, Last 4 Hours Temp Pulse Resp BP Pulse Ox 06/08/16 09:34 98.8 F 93 15 119/77 100 06/08/16 09:19 98.7 F 94 17 91/58 100 06/08/16 09:04 98.6 F 92 16 90/48 100 06/08/16 08:00 98.6 F General: Conversant, No Apparent Distress HEENT: Mucus Membranes Moist Neck: No JVD Cardiac: Other (irregularly irregular) Lungs: Normal Breath Sounds, No Wheeze, Rales, Rhonchi Neuro: Alert and responsive, No focal deficits noted Abdomen: Soft, Other (bowel sounds audible) Extremities: No Edema Results 06/08/16 09:15 06/08/16 04:10 Lab Results 06/08/16 06/08/16 06/08/16 04:10 04:10 09:15 Hgb 7.3 L Hct 24.6 L INR Sodium 143 Potassium 3.5 Chloride 96 L Carbon Dioxide 40 H* BUN 31 H Creatinine 1.49 H Glucose 108 H Calcium 8.1 L Troponin I 0.05 H* 06/08/16 06/08/16 09:15 09:15 Hgb Hct INR 2.1 Sodium Potassium Chloride Carbon Dioxide BUN Creatinine Glucose Calcium Troponin I 0.06 H* - Imaging and Cardiology Echo: report reviewed Other Results: CT ABD/P reviewed - EKG Interpretation EKG results cardiology: other (Telemetry reviewed, heart rate low 100's) Consult Discharge Plan - Plan Referrals: NO,PCP [Primary Care Provider] -
[2016-06-08] MEDS ORDERED: *HR* Phytonadione 5 MG TABLET PO ONE (11:51)
--- NOTE | 2016-06-08 11:56 | Pulmonology Consult Note ---
<JigneshErik M - Last Filed: 06/08/16 18:50> Date of Encounter: 06/08/16 Medications and Allergies Budesonide/Formoterol 160/4.5 [Symbicort] 2 puff IH BID 01/30/15 [History] FLUoxetine HCl [Prozac] 20 mg PO BID 01/30/15 [History] Isosorbide MONOnitrate (24 HR) [Imdur] 30 mg PO DAILY 01/30/15 [History] Furosemide [Lasix] 40 mg PO QPM 08/11/15 [History] Furosemide [Lasix] 80 mg PO QAM 08/11/15 [History] Oxycodone HCl/Acetaminophen [Percocet 10-325 mg Tablet] 1 tab PO Q6H PRN [History] Allopurinol [Zyloprim 300 MG] 300 mg PO DAILY 01/12/16 [History] Potassium Chloride [K-Tab ER] 20 meq PO BID 01/12/16 [History] Ropinirole HCl [Requip] 2 mg PO HS 01/12/16 [History] Sacubitril/Valsartan [Entresto 24 mg-26 mg Tablet] 1 tab PO BID 01/12/16 [ History] Calcium Carbonate [Calcium] 1,500 mg PO BID 04/22/16 [History] Gabapentin [Neurontin] 300 mg PO HS 04/22/16 [History] Ipratropium/Albuterol Neb [Duoneb] 3 ml IH Q6HR PRN 04/22/16 [History] Levothyroxine [Synthroid] 50 mcg PO DAILY 04/22/16 [History] Oxygen 2.5 l NS CONT 04/22/16 [History] Metoprolol [Lopressor] 12.5 mg PO BID #60 tablet 04/27/16 [Rx] Folic Acid 1 mg PO DAILY 05/28/16 [History] Warfarin [Coumadin] 5 mg PO DAILY 05/28/16 [History] Amiodarone [Cordarone] 200 mg PO BID 05/29/16 [History] Ascorbic Acid [Vitamin C] 250 mg PO DAILY 05/29/16 [History] Enoxaparin [Lovenox] 90 mg SQ DAILY #4 syr 06/06/16 [Rx] Ferrous Sulfate 325 mg PO BIDWM #60 tablet 06/06/16 [Rx] PredniSONE 10 mg PO DAILY 9 Days 06/06/16 [Rx] Allergies albuterol Allergy (Verified 01/09/16 19:46) Drowsy Penicillins Allergy (Verified 01/09/16 19:46) Hives Sulfa (Sulfonamide Antibiotics) Allergy (Verified 01/09/16 19:46) Hives jello Adverse Reaction (Uncoded 01/09/16 19:46) Nausea All Systems: A 10-system review of systems was performed and is negative for pertinent findings except as documented above in the HPI. Physical Examination Vital Signs: Vital Signs, Last 4 Hours Temp Pulse Resp BP Pulse Ox 06/08/16 18:42 96.4 F L 06/08/16 16:21 98.8 F 100 22 101/73 98 06/08/16 16:00 98.9 F 116 16 109/68 98 06/08/16 15:53 98.8 F 116 16 109/68 100 06/08/16 15:51 98.9 F 117 21 107/43 24 L 06/08/16 15:49 98.4 F 117 15 107/43 100 06/08/16 15:21 16 97 06/08/16 15:20 98.4 F 117 20 106/64 100 06/08/16 15:00 118 18 96/54 95 06/08/16 14:55 98.4 F 117 15 96/54 96 Results - Laboratory Findings CBC and BMP: 06/08/16 16:30 06/08/16 04:10 PT/INR, D-dimer PT 17.4 Seconds (9.4-12.1) H 06/08/16 16:30 Abnormal lab findings: Abnormal lab results WBC 12.6 K/mcL (4.3-11.1) H 06/07/16 21:19 RBC 2.43 M/mcL (3.82-4.97) L 06/07/16 21:19 Hgb 8.7 g/dL (11.5-15.4) L 06/08/16 16:30 Hct 27.6 % (35.3-44.9) L 06/08/16 16:30 MCH 27.2 pg (28.0-33.3) L 06/07/16 21:19 MCHC 28.9 g/dL (31.6-35.5) L 06/07/16 21:19 RDW 21.5 % (11.5-14.5) H 06/07/16 21:19 Plt Count 87 K/mcL (140-400) L 06/07/16 21:19 Neutrophils # 11.1 K/mcL (1.6-8.9) H 06/07/16 21:19 Platelet Estimate Decreased (Normal) L 06/07/16 21:19 Immature Plt Fraction 7.3 % (1.1-6.1) H 06/07/16 21:19 Hypochromasia Present (Not Present) A 06/07/16 21:19 PT 17.4 Seconds (9.4-12.1) H 06/08/16 16:30 Chloride 96 mEq/L (98-109) L 06/08/16 04:10 Carbon Dioxide 40 mEq/L (19-29) H* 06/08/16 04:10 BUN 31 mg/dL (7-20) H 06/08/16 04:10 Creatinine 1.49 mg/dL (0.57-1.11) H 06/08/16 04:10 Est GFR ( Amer) 41 (> 60) L 06/08/16 04:10 Est GFR (Non-Af Amer) 34 (> 60) L 06/08/16 04:10 Glucose 108 mg/dL (70-99) H 06/08/16 04:10 POC Glucose 211 (58-89) H 06/08/16 18:37 Calculated Osmolality 303 (280-300) H 06/08/16 04:10 Calcium 8.1 mg/dL (8.6-10.8) L 06/08/16 04:10 Troponin I 0.06 ng/mL (0-0.03) H* 06/08/16 09:15 Serum Total Protein 4.8 g/dL (6.0-8.3) L 06/07/16 21:19 Albumin 2.6 g/dL (3.5-5.0) L 06/07/16 21:19 Globulin 2.2 g/dL (2.4-3.5) L 06/07/16 21:19 Ur Leukocyte Esterase Small (Negative) H 06/07/16 20:30 Urine Microscopic WBC 5-15 per hpf (0-3) H 06/07/16 20:30 Ur Squamous Epith Cells Many per lpf (None-Few) H 06/07/16 20:30 Ur Culture Indicated? YES (NO) A 06/07/16 20:30 - Clinical Findings Intake & Output: Intake & Output 06/08/16 06/08/16 06/08/16 07:59 15:59 23:59 Intake Total 970 / 1470 2421 / 2421 543 / 543 Output Total 0 / 0 500 / 500 400 / 400 Balance 970 / 1470 1921 / 1921 143 / 143 Weight 91.9 kg Consult Discharge Plan - Plan Referrals: NO,PCP [Primary Care Provider] - - Attending Attestation I examined this patient and my medical decision-making was reviewed with the RAILROAD OPERATING ENGINEER/PA/Advanced Practice Nurse/Resident Physician. I agree with the documented findings, disposition and treatment plan as described except to the extent set forth below. Patient seen and examined. Labs, radiology, chart personally reviewed. Agree with resident's history and physical, assessment, plan with following comments: OSCILLOGRAPH TECHNICIAN: Patient follows commands, Pulmonary: Acceptable oxygenation and ventilation Cardiovascular: stable. During examination I didn't hear the mechanical click, however previous echo read as mechanical valve, then confirmed with director of early childhood it was not mechanical valve. GI: Nutrition per dietary and GI prophylaxis per routine Heme: DVT prophylaxis. Patient has severe anemia from Coumadin coagulopathy and IR was consulted. Her cogulopathy to be reversed and with transfusion of PRBC and blood products. Renal; urine out put and renal funtion reviewed Endorcine: blood glucose is monitored Lines: all lines checked and no evidence of infections Skin: skin care to prevent pressure ulcers per nursing routine care <Mendel Lino - Last Filed: 06/08/16 20:27> Date of Encounter: 06/08/16 Time of Encounter: 09:15 Assessment and Plan (1) Hematoma of rectus sheath Current Visit: Yes Status: Acute Hematoma of the rectus sheath identified on CT exam. This is after patient was discharged from the hospital on 06/06 after a GI bleed. Her hemoglobin fell from 8.0 on 06/06 to 6.6 on presentation to [place] on 06/08. She has an elevated INR to 2.4 due to warfarin. She was given 2 units pRBCs, 2 units FFP, and 2 units platelets at admission. Her hgb came up 7.3 and INR wentr down to 2.1. Her blood pressure has stabilized at this point. After speaking with IR, will continually assess vitals and H&H to see if bleeding continues. If needed, IR can embolize artery Will give additional 2 units pRBCs, 2 units FFP Give 5 mg Vit K Monitor H&H and INR q6 Continue to monitor blood pressure and vitals Consider CTA if patient appears to continue bleeding Qualifiers: Encounter type: initial encounter Qualified Code(s): S30.1XXA - Contusion of abdominal wall, initial encounter (2) Anemia Current Visit: Yes Status: Acute Plan as above Qualifiers: Anemia type: unspecified type Qualified Code(s): D64.9 - Anemia, unspecified (3) Atrial fibrillation Current Visit: Yes Status: Acute Patient has chronic A. Fib and she is on warfarin at home. She is also on several medications to control her rate. Due to patient hypotension, will hold medications. Cardiology is following to help assess need for patient a. fib [id number]. Due to elevated INR (2.4) and patient bleeding, will hold patient warfarin and reverse INR until bleeding stabilizes. CHADVASc = 4 Has-BLED = 2 Hold patient medications that could contribute to hypotension: Entresto, metoprolol, and amiodarone Hold warfarin Appreciated cardiology recommendations regarding continued management/care Qualifiers: Atrial fibrillation type: chronic Qualified Code(s): I48.2 - Chronic atrial fibrillation (4) Congestive heart failure Current Visit: No Status: Chronic Last echo done in 05/07 showed EF of 55% Will hold her lasix temporarily due to patient hgypotension Will consider restarting medications with more patient stability Qualifiers: Congestive heart failure type: systolic Congestive heart failure chronicity : chronic Qualified Code(s): I50.22 - Chronic systolic (congestive) heart failure (5) H/O aortic valve replacement Current Visit: Yes Status: Acute Patient has tissue valve replacement, so concern for potential need of anticoagulation on account of valve not warranted. (6) Elevated troponin Current Visit: No Status: Acute Likely due to demand ischemia with patient symptomatic anemia and hypotension (7) Diabetes Current Visit: No Status: Chronic Glucose appear well controlled prior to admission with diet. 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 Reports no bowel movements since colon prep 4 days ago. Will continue to monitor Fluids/Electrolytes: No concerns at this time Heme: Anemia 2/2 hematoma in rectal sheath. Exacerbated by elevated INR (from warfarin). Given a total of 4 units pRBCs and FFP. 2 units of platelets and Vit K. Bleeding appears to be improved. Will continue to monitor with Q6 H&H and INR Skin: Ecchymosis seen in left flank Code status: Full History of Present Illness Consult date: 06/08/16 Requesting physician: Trent Leroy Reason for consult: other (Acute blood loss anemia) Chief complaint: Severe pain when attempting ambulate History of present illness: Mrs. Higginbotham is a 75-year-old female with history of CHF, COPD, diabetes, GI bleed from AVM, atrial fibrillation, porcine aortic valve, with AICD/pacemaker, and cancer who was recently discharged from the hospital on 06/06/16 after evaluation of GI bleeding. She underwent colonoscopy and EGD and was found to have an AVM which was cauterized at that time. When she was discharged from the hospital on 06/06/16 she had a hemoglobin of 8.0. She returned to the hospital last night after experiencing severe pain, sharp, sudden onset in her abdomen when trying to move at home. She also states that she has been dizzy when standing, this has continued into today. She states the pain was so severe that she was unable to walk this morning. On presentation to the hospital she had a hemoglobin of 6.1, platelets of 87, and INR of 2.4 (on Coumadin). She was found to have a hematoma of her rectus sheath on CT examination of her abdomen. She was given 2 units PRBCs, 2 units FFP, 2 units platelets in order to help stabilize patient bleeding. Patient blood pressure stabilized and last hemoglobin was 7.3. Patient is comfortable and without immediate complaints. Past Med Surg Social Fam HX - Past Medical History Medical history: atrial fibrillation, cancer, CHF, COPD, diabetes, GI bleed, valvular heart disease, other Psychiatric history: anxiety, depression - Past Surgical History Surgical History: appendectomy, breast surgery, coronary bypass (CABG), heart valve replacement, hysterectomy, pacemaker/AICD - Social History Smoking Status: Former smoker Smokeless Tobacco Status: No Alcohol use: none Drug use: none - Family History Mother History Unknown: Yes Family Member Ethnicity: Non- Living Status: Age at : 74 Hx Family Cardiac Disorders: No Hx Family Respiratory Disorders: No Hx Family Cancer: Yes Hx Family GI Disorders: No Hx Family Endocrine Disorder: No Hx Family Neuromuscular Disorders: No Hx Family Neurologic Disorders: No Hx Family HEENT Disorders: No Hx Family Autoimmune Disorders: No Father History Unknown: Yes Living Status: Age at : 52 Hx Family Cardiac Disorders: Yes Hx Family Respiratory Disorders: No Hx Family Cancer: Yes Hx Family GI Disorders: No Hx Family Endocrine Disorder: No Hx Family Neuromuscular Disorders: No Hx Family Neurologic Disorders: No Hx Family HEENT Disorders: No Hx Family Autoimmune Disorders: No - Constitutional Constitutional: weakness, no chills, no fever(s) - EENT Nose, mouth and throat: dizziness, no dysphagia, no headache(s), no vertigo - Cardiovascular Cardiovascular: irregular heart rhythm, pedal edema, no chest pain, no diaphoresis, no dyspnea, no orthopnea, no palpitations - Respiratory Respiratory: no cough, no dyspnea, no hemoptysis, no pain on inspirtation - Gastrointestinal Gastrointestinal: abdominal pain, no cramping, no hematemesis, no loose stools, no nausea, no vomiting - Musculoskeletal Musculoskeletal: no muscle weakness, no numbness, no stiffness - Neurological Neurological: dizziness (Orthostatic), no confusion, no headache(s), no numbness , no paresthesias - Psychiatric Psychiatric: no anxiety, no depression - Endocrine Endocrine: no fatigue, no flushing Physical Examination Vital Signs: Vital Signs, Last 4 Hours Temp Pulse Resp BP Pulse Ox 06/08/16 11:40 98.2 F 06/08/16 11:00 98.5 F 100 17 110/65 99 06/08/16 10:00 89 14 119/77 100 06/08/16 09:34 98.8 F 93 15 119/77 100 06/08/16 09:19 98.7 F 94 17 91/58 100 06/08/16 09:04 98.6 F 92 16 90/48 100 06/08/16 09:00 87 16 90/48 100 06/08/16 08:00 98.6 F 90 16 103/61 98 Constitutional: No acute distress, alert, comfortable appearing EENT: Sclera nonicteric, noninjected, oropharynx moist, conjunctival pallor appreciated, neck supple Respiratory: Respirations nonlabored, clear to auscultation bilaterally, no wheezes/rhonchi/rales appreciated Cardiovascular: Irregular rhythm, 2/6 Systolic murmur detected Gastrointestinal: Normoactive bowel sounds, soft, tenderness to palpation left aspect of abdomen, nondistended, no guarding or rebound, ecchymosis noted in left flank Integumentary: No erythema, no rashes, no pallor appreciated Extremities: No cyanosis, 2+ edema, no clubbing, pink and warm, pulses present and equal bilaterally Musculoskeletal: No deformities Neurologic: Normal mental status, nonfocal exam, pupils equal round reactive to light bilaterally Psychiatric normal mood, normal affect Results - Laboratory Findings CBC and BMP: 06/08/16 16:30 06/08/16 04:10 PT/INR, D-dimer PT 22.7 Seconds (9.4-12.1) H 06/08/16 09:15 Abnormal lab findings: Abnormal lab results WBC 12.6 K/mcL (4.3-11.1) H 06/07/16 21:19 RBC 2.43 M/mcL (3.82-4.97) L 06/07/16 21:19 Hgb 7.3 g/dL (11.5-15.4) L 06/08/16 09:15 Hct 24.6 % (35.3-44.9) L 06/08/16 09:15 MCH 27.2 pg (28.0-33.3) L 06/07/16 21:19 MCHC 28.9 g/dL (31.6-35.5) L 06/07/16 21:19 RDW 21.5 % (11.5-14.5) H 06/07/16 21:19 Plt Count 87 K/mcL (140-400) L 06/07/16 21:19 Neutrophils # 11.1 K/mcL (1.6-8.9) H 06/07/16 21:19 Platelet Estimate Decreased (Normal) L 06/07/16 21:19 Immature Plt Fraction 7.3 % (1.1-6.1) H 06/07/16 21:19 Hypochromasia Present (Not Present) A 06/07/16 21:19 PT 22.7 Seconds (9.4-12.1) H 06/08/16 09:15 Chloride 96 mEq/L (98-109) L 06/08/16 04:10 Carbon Dioxide 40 mEq/L (19-29) H* 06/08/16 04:10 BUN 31 mg/dL (7-20) H 06/08/16 04:10 Creatinine 1.49 mg/dL (0.57-1.11) H 06/08/16 04:10 Est GFR ( Amer) 41 (> 60) L 06/08/16 04:10 Est GFR (Non-Af Amer) 34 (> 60) L 06/08/16 04:10 Glucose 108 mg/dL (70-99) H 06/08/16 04:10 POC Glucose 114 (58-89) H 06/08/16 11:19 Calculated Osmolality 303 (280-300) H 06/08/16 04:10 Calcium 8.1 mg/dL (8.6-10.8) L 06/08/16 04:10 Troponin I 0.06 ng/mL (0-0.03) H* 06/08/16 09:15 Serum Total Protein 4.8 g/dL (6.0-8.3) L 06/07/16 21:19 Albumin 2.6 g/dL (3.5-5.0) L 06/07/16 21:19 Globulin 2.2 g/dL (2.4-3.5) L 06/07/16 21:19 Ur Leukocyte Esterase Small (Negative) H 06/07/16 20:30 Urine Microscopic WBC 5-15 per hpf (0-3) H 06/07/16 20:30 Ur Squamous Epith Cells Many per lpf (None-Few) H 06/07/16 20:30 Ur Culture Indicated? YES (NO) A 06/07/16 20:30 - Clinical Findings Intake & Output: Intake & Output 06/07/16 06/08/16 06/08/16 23:59 07:59 15:59 Intake Total 970 / 1470 800 / 800 Output Total 0 / 0 500 / 500 Balance 970 / 1470 300 / 300 Weight 91.9 kg
[2016-06-08 16:38] LABS: Hematocrit 27.6 % (35.3-44.9); Hemoglobin 8.7 g/dL (11.5-15.4)
[2016-06-08 16:43] LABS: INR 1.6; Prothrombin Time 17.4 Seconds (9.4-12.1)
[2016-06-08 20:24] LABS: Hematocrit 27.1 % (35.3-44.9); Hemoglobin 8.6 g/dL (11.5-15.4)
[2016-06-08 20:28] LABS: INR 1.7; Prothrombin Time 18.1 Seconds (9.4-12.1)
[2016-06-08] MEDS ORDERED: Gabapentin 300 MG CAPSULE PO SCH (21:00)
[2016-06-08] MEDS ORDERED: rOPINIRole 1 MG TABLET PO SCH (21:00)
[2016-06-09 04:14] LABS: Hemoglobin 8.2 g/dL (11.5-15.4)
[2016-06-09 04:16] LABS: Hematocrit 26.4 % (35.3-44.9); Immature Granulocytes % 1.2 % (0-4); Immature Platelets 5.2 % (1.1-6.1); Lymphocytes # 0.4 K/mcL (0.6-4.6); Lymphocytes % 4.2 %; Mean Corpuscular HGB Conc 31.1 g/dL (31.6-35.5); Mean Corpuscular Hemoglobin 27.9 pg (28.0-33.3); Mean Corpuscular Volume 89.8 fL (83.0-100.0); Mean Platelet Volume 10.5 fL (9.4-12.4); Monocytes # 0.5 K/mcL (0.0-1.3); Monocytes % 4.9 %; Neutrophils # 8.8 K/mcL (1.6-8.9); Red Blood Count 2.94 M/mcL (3.82-4.97); Red Cell Distribution Width 18.7 % (11.5-14.5); Segmented Neutrophils % 89.7 %
[2016-06-09 04:20] LABS: Platelet Count 97 K/mcL (140-400)
[2016-06-09 04:24] LABS: Calcium 8.8 mg/dL (8.6-10.8); Potassium 3.2 mEq/L (3.5-4.5)
[2016-06-09] MEDS: Ipratropium/Albuterol Neb 3 ML IH SCH ×4 (04:40→21:58)
[2016-06-09] MEDS: *HR* OxyCODONE/APAP 10/325 TABLET PO PRN ×2 (04:50→16:09)
[2016-06-09] MEDS: Pantoprazole 40 MG VIAL IVP SCH ×2 (04:51→17:34)
[2016-06-09 04:52] LABS: Hypochromasia Present (Not Present); Platelet Estimate Decreased (Normal)
[2016-06-09 04:53] LABS: Basophilic Stippling 1+ (Not Present); Macrocytosis Present (Not Present)
[2016-06-09] MEDS: Budesonide/Formoterol 160/4.5 MDI IH SCH ×2 (09:22→21:58)
[2016-06-09] MEDS: predniSONE 10 MG TABLET PO SCH (09:23)
[2016-06-09] MEDS: FLUoxetine 20 MG CAPSULE PO SCH ×2 (09:23→20:46)
[2016-06-09 09:50] LABS: INR 1.5; Prothrombin Time 16.9 Seconds (9.4-12.1)
--- NOTE | 2016-06-09 11:00 | Pulmonology Progress Note ---
Addendum entered and electronically signed by Mendel Lino DO 06/09/16 14:54 : Subjective: We will continue monitor patient bilirubin as there is an expected increase as the cumulative blood begins to be resorbed Assessment and plan: Metabolic alkalosis Assessment: Patient Ph 7.48 with elevated HCO3 of 41 (as measured on chemistry) , PCO2 65. This combination appears to be a metabolic alkalosis with concrete current respiratory acidosis. Given patient history of COPD and obesity this likely represents a chronic respiratory acidosis as well as current metabolic alkalosis. There is likely a degree of metabolic compensation of patient's chronic respiratory acidosis, but potentially due to contraction with recent bleeding or other causes as been increase in HCO3 as well. We will continue to monitor Original Note: <Mendel Lino - Last Filed: 06/09/16 13:20> Date of Encounter: 06/09/16 Time of Encounter: 08:15 Assessment and Plan (1) Hematoma of rectus sheath Current Visit: Yes Status: Acute Hematoma of the rectus sheath identified on CT exam. This is after patient was discharged from the hospital on 06/06 after a GI bleed. Her hemoglobin fell from 8.0 on 06/06 to 6.6 on presentation to [place] on 06/08. She has an elevated INR to 2.4 due to warfarin. She was given 2 units pRBCs, 2 units FFP, and 2 units platelets at admission. Her hgb came up 7.3 and INR went down to 2.1. Her blood pressure has stabilized at this point. After speaking with IR, will continually assess vitals and H&H to see if bleeding continues. If needed, IR can embolize artery 06/09 patient hemoglobin stable at 8.2 and INR 1.5 last check, no tachycardia, normotensive. Patient appears stable currently We will give additional transfusion PRBC if hemoglobin falls below 7.5 We will recheck hemoglobin and INR this afternoon, if continued stability will consider transfer to in the telemetry unit Continue to monitor blood pressure and vitals Qualifiers: Encounter type: initial encounter Qualified Code(s): S30.1XXA - Contusion of abdominal wall, initial encounter (2) Anemia Current Visit: Yes Status: Acute Plan as above Qualifiers: Anemia type: unspecified type Qualified Code(s): D64.9 - Anemia, unspecified (3) Atrial fibrillation Current Visit: Yes Status: Acute Patient has chronic A. Fib and she is on warfarin at home. She is also on several medications to control her rate. Cardiology is following to help assess need for patient a. kamryn medications. Due to elevated INR (2.4) and patient bleeding, will hold patient warfarin and reverse INR until bleeding stabilizes. CHADVASc = 4 Has-BLED = 2. Though it is concerning the patient hematoma began with therapeutic INR and very minor stimulus (moving in bed). Hold patient medications that could contribute to hypotension: Entresto and amiodarone Hold warfarin Appreciated cardiology recommendations regarding continued management/care Metoprolol restarted Qualifiers: Atrial fibrillation type: chronic Qualified Code(s): I48.2 - Chronic atrial fibrillation (4) Congestive heart failure Current Visit: No Status: Chronic Last echo done in 05/07 showed EF of 55% Will hold her lasix temporarily due to patient hgypotension Will consider restarting medications with more patient stability Qualifiers: Congestive heart failure type: systolic Congestive heart failure chronicity : chronic Qualified Code(s): I50.22 - Chronic systolic (congestive) heart failure (5) H/O aortic valve replacement Current Visit: Yes Status: Acute Patient has bioprosthetic valve placed, previous echocardiogram showed mechanical valve is incorrect in its assessment after confirming with cardiology (6) Elevated troponin Current Visit: No Status: Acute Likely due to demand ischemia with patient symptomatic anemia and hypotension (7) Diabetes Current Visit: No Status: Chronic Glucose appear well controlled prior to admission with diet. 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 Reports no bowel movements since colon prep during last hospitalization (discharged to 06/06/16). Will continue to monitor Fluids/Electrolytes: No concerns at this time Heme: Anemia 2/2 hematoma in rectal sheath. Exacerbated by elevated INR ( therapeutic on warfarin). Given a total of 4 units pRBCs and FFP. 2 units of platelets and Vit K. we will continue to monitor Skin: Ecchymosis seen in left flank, unchanged from yesterday Disposition: If patient H&H and INR remained stable, patient states/stable for respiratory telemetry bed Code status: Full Subjective Principal diagnosis: Rectus sheath hematoma and anemia Interval history: Patient doing well today, states she has slight pain in her abdomen but the this is improved since yesterday. No complaints of dizziness, fatigue, weakness , shortness of breath, or chest pain. Overall says she is doing well. Objective PUL Vital signs: Last Vital Signs Temp 98.4 F 06/09/16 05:25 Pulse 98 06/09/16 07:00 Resp 18 06/09/16 07:00 BP 102/56 06/09/16 07:00 Pulse Ox 99 06/09/16 07:00 Constitutional: No acute distress, alert, comfortable appearing EENT: Sclera nonicteric, noninjected, oropharynx moist, conjunctival pallor appreciated, neck supple Respiratory: Respirations nonlabored, clear to auscultation bilaterally, no wheezes/rhonchi/rales appreciated Cardiovascular: Irregular rhythm, 2/6 Systolic murmur detected Gastrointestinal: Normoactive bowel sounds, soft, tenderness to palpation left aspect of abdomen, nondistended, no guarding or rebound, ecchymosis noted in left flank Integumentary: No erythema, no rashes, no pallor appreciated Extremities: No cyanosis, 1+ edema, no clubbing, pink and warm, pulses present and equal bilaterally Musculoskeletal: No deformities Neurologic: Normal mental status, nonfocal exam, pupils equal round reactive to light bilaterally Psychiatric normal mood, normal affect Results - Laboratory Findings CBC and BMP: 06/09/16 13:02 06/09/16 04:05 PT/INR, D-dimer PT 16.9 Seconds (9.4-12.1) H 06/09/16 09:36 Abnormal lab findings: Abnormal lab results RBC 2.94 M/mcL (3.82-4.97) L 06/09/16 04:05 Hgb 8.2 g/dL (11.5-15.4) L 06/09/16 04:05 Hct 26.4 % (35.3-44.9) L 06/09/16 04:05 MCH 27.9 pg (28.0-33.3) L 06/09/16 04:05 MCHC 31.1 g/dL (31.6-35.5) L 06/09/16 04:05 RDW 18.7 % (11.5-14.5) H 06/09/16 04:05 Plt Count 97 K/mcL (140-400) L 06/09/16 04:05 Lymphocytes # 0.4 K/mcL (0.6-4.6) L 06/09/16 04:05 Platelet Estimate Decreased (Normal) L 06/09/16 04:05 Hypochromasia Present (Not Present) A 06/09/16 04:05 Basophilic Stippling 1+ (Not Present) A 06/09/16 04:05 Macrocytosis Present (Not Present) A 06/09/16 04:05 PT 16.9 Seconds (9.4-12.1) H 06/09/16 09:36 Potassium 3.2 mEq/L (3.5-4.5) L 06/09/16 04:05 Chloride 94 mEq/L (98-109) L 06/09/16 04:05 Carbon Dioxide 41 mEq/L (19-29) H* 06/09/16 04:05 BUN 22 mg/dL (7-20) H 06/09/16 04:05 Est GFR ( Amer) 58 (> 60) L 06/09/16 04:05 Est GFR (Non-Af Amer) 48 (> 60) L 06/09/16 04:05 POC Glucose 112 (58-89) H 06/09/16 05:29 Troponin I 0.06 ng/mL (0-0.03) H* 06/08/16 09:15 Serum Total Protein 4.8 g/dL (6.0-8.3) L 06/07/16 21:19 Albumin 2.6 g/dL (3.5-5.0) L 06/07/16 21:19 Globulin 2.2 g/dL (2.4-3.5) L 06/07/16 21:19 Ur Leukocyte Esterase Small (Negative) H 06/07/16 20:30 Urine Microscopic WBC 5-15 per hpf (0-3) H 06/07/16 20:30 Ur Squamous Epith Cells Many per lpf (None-Few) H 06/07/16 20:30 Ur Culture Indicated? YES (NO) A 06/07/16 20:30 - Clinical Findings Intake & Output: Intake & Output 06/08/16 06/09/16 06/09/16 23:59 07:59 15:59 Intake Total 643 / 643 200 / 200 120 / 120 Output Total 600 / 600 400 / 400 Balance 43 / 43 200 / 200 -280 / -280 Weight 95.6 kg Consult Discharge Plan - Plan Referrals: NO,PCP [Primary Care Provider] - <Erik Egan - Last Filed: 06/09/16 19:49> Date of Encounter: 06/09/16 Objective PUL Vital signs: Last Vital Signs Temp 98.4 F 06/09/16 05:25 Pulse 108 06/09/16 10:00 Resp 20 06/09/16 10:00 BP 105/67 06/09/16 10:00 Pulse Ox 97 06/09/16 10:00 Results - Laboratory Findings CBC and BMP: 06/09/16 13:02 06/09/16 04:05 PT/INR, D-dimer PT 16.9 Seconds (9.4-12.1) H 06/09/16 09:36 Abnormal lab findings: Abnormal lab results RBC 2.94 M/mcL (3.82-4.97) L 06/09/16 04:05 Hgb 8.2 g/dL (11.5-15.4) L 06/09/16 04:05 Hct 26.4 % (35.3-44.9) L 06/09/16 04:05 MCH 27.9 pg (28.0-33.3) L 06/09/16 04:05 MCHC 31.1 g/dL (31.6-35.5) L 06/09/16 04:05 RDW 18.7 % (11.5-14.5) H 06/09/16 04:05 Plt Count 97 K/mcL (140-400) L 06/09/16 04:05 Lymphocytes # 0.4 K/mcL (0.6-4.6) L 06/09/16 04:05 Platelet Estimate Decreased (Normal) L 06/09/16 04:05 Hypochromasia Present (Not Present) A 06/09/16 04:05 Basophilic Stippling 1+ (Not Present) A 06/09/16 04:05 Macrocytosis Present (Not Present) A 06/09/16 04:05 PT 16.9 Seconds (9.4-12.1) H 06/09/16 09:36 Potassium 3.2 mEq/L (3.5-4.5) L 06/09/16 04:05 Chloride 94 mEq/L (98-109) L 06/09/16 04:05 Carbon Dioxide 41 mEq/L (19-29) H* 06/09/16 04:05 BUN 22 mg/dL (7-20) H 06/09/16 04:05 Est GFR ( Amer) 58 (> 60) L 06/09/16 04:05 Est GFR (Non-Af Amer) 48 (> 60) L 06/09/16 04:05 POC Glucose 112 (58-89) H 06/09/16 05:29 Troponin I 0.06 ng/mL (0-0.03) H* 06/08/16 09:15 Serum Total Protein 4.8 g/dL (6.0-8.3) L 06/07/16 21:19 Albumin 2.6 g/dL (3.5-5.0) L 06/07/16 21:19 Globulin 2.2 g/dL (2.4-3.5) L 06/07/16 21:19 Ur Leukocyte Esterase Small (Negative) H 06/07/16 20:30 Urine Microscopic WBC 5-15 per hpf (0-3) H 06/07/16 20:30 Ur Squamous Epith Cells Many per lpf (None-Few) H 06/07/16 20:30 Ur Culture Indicated? YES (NO) A 06/07/16 20:30 - Clinical Findings Intake & Output: Intake & Output 06/08/16 06/09/16 06/09/16 23:59 07:59 15:59 Intake Total 643 / 643 200 / 200 120 / 120 Output Total 600 / 600 400 / 400 Balance 43 / 43 200 / 200 -280 / -280 Weight 95.6 kg - Attending Attestation I examined this patient and my medical decision-making was reviewed with the CIVIL ENGINEERING DRAFTER/PA/Advanced Practice Nurse/Resident Physician. I agree with the documented findings, disposition and treatment plan as described except to the extent set forth below. Patient seen and examined. Labs, radiology, chart personally reviewed. Agree with resident's history and physical, assessment, plan with following comments: FERN GATHERER: Patient follows commands, Pulmonary: Acceptable oxygenation and ventilation. I suspect patient has obesity ventilation syndrome and will check an ABG Cardiovascular: Obviously patient is high risk of thromboembolic with history of A. fib and will defer anticoagualtion to vfx artist. She is not candidate for full anticoagulation at this time due to her bleeding. GI: Nutrition per dietary and GI prophylaxis per routine Heme: DVT prophylaxis per routine. If her H&H remained stable, then she may be transferred to the floor ID: No need for antibiotics Renal; urine out put and renal funtion reviewed Endorcine: blood glucose is monitored Lines: all lines checked and no evidence of infections Skin: skin care to prevent pressure ulcers per nursing routine care
[2016-06-09 13:11] LABS: Hemoglobin 8.6 g/dL (11.5-15.4)
[2016-06-09 13:20] LABS: INR 1.6
[2016-06-09 13:40] LABS: ABG Base Excess 22.4 mEq/L (-2.0 to 3.0); ABG HCO3 48.4 mEQ/L (21-27); ABG Oxygen Saturation 98 % (95-98); ABG PCO2 65 mmHg (35-45); ABG PH 7.48 pH Units (7.32-7.45); ABG PO2 90 mmHg (85-104); ABG TCO2 50.4 mEq/L (20-26); Blood Gas FiO2 28 %
[2016-06-09] MEDS ORDERED: *HR* Morphine 2 MG/ML SYRINGE IVP PRN (18:38)
[2016-06-09] MEDS ORDERED: Naloxone 0.4 MG/ML INJ IVP PRN ×2 (18:38)
[2016-06-09] MEDS ORDERED: Acetaminophen 325 MG TABLET PO PRN (18:38)
[2016-06-09] MEDS ORDERED: Ondansetron 4 MG/2 ML VIAL IVP PRN (18:38)
[2016-06-09] MEDS: rOPINIRole 1 MG TABLET PO SCH (20:46)
[2016-06-09] MEDS: Gabapentin 300 MG CAPSULE PO SCH (23:05)
[2016-06-10 02:52] LABS: Hematocrit 26.1 % (35.3-44.9); Hemoglobin 8.1 g/dL (11.5-15.4); Immature Granulocytes % 1.3 % (0-4); Immature Platelets 4.8 % (1.1-6.1); Lymphocytes # 0.4 K/mcL (0.6-4.6); Lymphocytes % 3.4 %; Mean Corpuscular Hemoglobin 28.5 pg (28.0-33.3); Mean Corpuscular Volume 91.9 fL (83.0-100.0); Mean Platelet Volume 11.2 fL (9.4-12.4); Monocytes # 0.7 K/mcL (0.0-1.3); Monocytes % 5.9 %; Platelet Count 100 K/mcL (140-400); Red Blood Count 2.84 M/mcL (3.82-4.97); Red Cell Distribution Width 19.2 % (11.5-14.5); Segmented Neutrophils % 89.4 %
[2016-06-10 03:00] LABS: INR 1.6; Prothrombin Time 17.9 Seconds (9.4-12.1)
[2016-06-10 03:09] LABS: Potassium 3.8 mEq/L (3.5-4.5)
[2016-06-10 03:22] LABS: Anisocytosis 2+ (Not Present)
[2016-06-10 03:23] LABS: Macrocytosis Present (Not Present)
[2016-06-10 03:24] LABS: Hypochromasia Present (Not Present); Platelet Estimate Decreased (Normal)
[2016-06-10] MEDS: Ipratropium/Albuterol Neb 3 ML IH SCH ×4 (04:54→20:24)
[2016-06-10] MEDS ORDERED: 0.9 % Sodium Chloride 500 ML IVC ONE (05:40)
[2016-06-10] MEDS: Pantoprazole 40 MG VIAL IVP SCH ×2 (05:56→18:01)
[2016-06-10] MEDS: FLUoxetine 20 MG CAPSULE PO SCH ×2 (08:05→21:22)
[2016-06-10] MEDS: predniSONE 10 MG TABLET PO SCH (08:07)
[2016-06-10] MEDS: Budesonide/Formoterol 160/4.5 MDI IH SCH ×2 (10:01→20:26)
--- NOTE | 2016-06-10 10:29 | Internal Med Progress Note ---
<MaineGareth mc - Last Filed: 06/10/16 10:18> Date of Encounter: 06/10/16 Time of Encounter: 10:18 - Assessment and plan (1) Hematoma of rectus sheath Current Visit: Yes Status: Acute Assessment and plan: Hematoma rectus sheath on CT following hospital discharge for GI bleed. Hemoglobin was 6.6 on this admission and has stabilized at 8.1 this morning Plan for repeat transfusion of PRBCs if Hgb less than 7.5 Qualifiers: Encounter type: initial encounter Qualified Code(s): S30.1XXA - Contusion of abdominal wall, initial encounter (2) Anemia Current Visit: Yes Status: Acute Qualifiers: Anemia type: unspecified type Qualified Code(s): D64.9 - Anemia, unspecified (3) Atrial fibrillation Current Visit: Yes Status: Acute Assessment and plan: This is chronic and patient on warfarin and rate controlled at home CHADVASC = 4, Has-BLED = 2 Holding Entresto and amiodarone due to hypotension Holding warfarin Qualifiers: Atrial fibrillation type: chronic Qualified Code(s): I48.2 - Chronic atrial fibrillation (4) Metabolic alkalosis with respiratory acidosis Current Visit: Yes Status: Acute (5) Congestive heart failure Current Visit: No Status: Chronic Assessment and plan: Echocardiogram April 2016 EF = 55% Holding Lasix due to hypotension Qualifiers: Congestive heart failure type: systolic Congestive heart failure chronicity : chronic Qualified Code(s): I50.22 - Chronic systolic (congestive) heart failure (6) Elevated troponin Current Visit: No Status: Acute Assessment and plan: Likely secondary to demand ischemia (7) Diabetes Current Visit: No Status: Chronic Assessment and plan: Stable, continue to monitor Qualifiers: Diabetes mellitus type: other specified (including MEGHANA) Diabetes mellitus complication status: with kidney complications Diabetes mellitus complication detail: with chronic kidney disease Diabetes mellitus termite control representative insulin use: without usp use Chronic kidney disease stage: stage 3 (moderate) Qualified Code(s): 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 No acute bleed on upper + lower endoscopy but lesion in duodenum was cauterized. Also ,history of angiodysplasia with one lesion cauterized. Patient placed back on Coumadin and no further episodes of hematochezia. She return to the ED 06/07/16 for LLQ abdominal pain. Hemoglobin = 6.6. CT scan showed rectal sheath hematoma with extension into the abdomen. She has received 4 units PRBCs, 4 units FFP, and 2 units platelets this admission. Surgery recommended medical management and patient transferred to ICU. Elevated INR was reversed with vitamin K for consideration of arterial embolization by interventional radiology. Mrs. Higginbotham was seen and examined this morning. She is lying in bed in no acute distress. She states her abdominal pain is still present although improving. She denies chest pain or shortness of breath currently - Constitutional Vitals: Temp Pulse Resp BP Pulse Ox 98.3 F 120 18 85/59 97 06/10/16 06:45 06/10/16 04:30 06/10/16 10:02 06/10/16 04:30 06/10/16 10:02 General appearance: Present: A&O X 3, pleasant, no acute distress, answers questions appropriately - Head Head exam: Present: atraumatic, normocephalic - Eye Eye exam: Present: PERRL, conjuntiva pink, sclera anicteric Pupils: Present: PERRL - Neck Neck exam general surgery: Present: supple, trachea midline. Absent: lymphadenopathy - Respiratory Respiratory exam: Present: CTAB. Absent: accessory muscle use, rales, rhonchi, wheezes - Cardiovascular Cardiovascular exam: Present: RRR, +S1, +S2. Absent: diastolic murmur, gallop, rubs, systolic murmur - GI/Abdominal GI/Abdominal exam: Present: normal bowel sounds, soft, no peritoneal signs. Absent: distended Additional comments: LLQ Tender - Extremities Exam Extremities exam: Present: warm, radial pulses palpable and symetrical. Absent : calf tenderness, cyanotic, pedal edema - Neurological Exam Neurological exam: Present: CN II-XII intact, oriented X3, no focal deficits. Absent: pronater drift, facial droop, speech deficit - Skin Skin exam: Present: dry, intact Internal Medicine: Result - Labs CBC & Chem 7: 06/10/16 02:39 06/10/16 02:39 Labs: Short CBC 06/09/16 06/10/16 Range/Units 13:02 02:39 WBC 12.3 H (4.3-11.1) K/mcL Hgb 8.6 L 8.1 L (11.5-15.4) g/dL Hct 28.0 L 26.1 L (35.3-44.9) % Plt Count 100 L (140-400) K/mcL Neutrophils # 11.0 H (1.6-8.9) K/mcL BMP 06/10/16 02:39 Sodium 141 Potassium 3.8 Chloride 97 L Carbon Dioxide 39 H BUN 20 Creatinine 1.13 H Glucose 145 H Calcium 9.0 - ABG Interpretation ABG results: ABG ABG pH 7.48 pH Units (7.32-7.45) H 06/09/16 13:31 ABG pCO2 65 mmHg (35-45) H 06/09/16 13:31 ABG pO2 90 mmHg (85-104) 06/09/16 13:31 ABG O2 Saturation 98 % (95-98) 06/09/16 13:31 PT/INR, D-dimer PT 17.9 Seconds (9.4-12.1) H 06/10/16 02:39 Consult Discharge Plan - Plan Referrals: NO,PCP [Primary Care Provider] - <Rickey Webb H - Last Filed: 06/10/16 11:55> Date of Encounter: 06/10/16 - Constitutional Vitals: Temp Pulse Resp BP Pulse Ox 98.3 F 114 18 80/49 97 06/10/16 07:35 06/10/16 07:35 06/10/16 10:02 06/10/16 07:35 06/10/16 10:02 Internal Medicine: Result - Labs CBC & Chem 7: 06/10/16 02:39 06/10/16 02:39 Labs: Short CBC 06/09/16 06/10/16 Range/Units 13:02 02:39 WBC 12.3 H (4.3-11.1) K/mcL Hgb 8.6 L 8.1 L (11.5-15.4) g/dL Hct 28.0 L 26.1 L (35.3-44.9) % Plt Count 100 L (140-400) K/mcL Neutrophils # 11.0 H (1.6-8.9) K/mcL BMP 06/10/16 02:39 Sodium 141 Potassium 3.8 Chloride 97 L Carbon Dioxide 39 H BUN 20 Creatinine 1.13 H Glucose 145 H Calcium 9.0 - ABG Interpretation ABG results: ABG ABG pH 7.48 pH Units (7.32-7.45) H 06/09/16 13:31 ABG pCO2 65 mmHg (35-45) H 06/09/16 13:31 ABG pO2 90 mmHg (85-104) 06/09/16 13:31 ABG O2 Saturation 98 % (95-98) 06/09/16 13:31 PT/INR, D-dimer PT 17.9 Seconds (9.4-12.1) H 06/10/16 02:39 - Attending Attestation acute blood loss anemia 2ry to acute rectus abdominus hematorma (left) / large lumbar ecchymoses exacerbated by warfarin Status post multiple transfusions of FFP and red blood cells Hold warfarin, the patient does not have any history of CVA The patient is tachycardic and has history of atrial fibrillation, amiodarone will be resumed, continue metoprolol Monitor CBC later today and consider further transfusions Order PICC line consult for a power glide IV fluids Consider repeat imaging if blood pressure persists and pain recurs Tachycardic 114 bpm I examined this patient and my medical decision-making was reviewed with the TECHNICAL SUPPORT SPECIALIST/PA/Advanced Practice Nurse/Resident Physician. I agree with the documented findings, disposition and treatment plan as described except to the extent set forth below.
[2016-06-10] MEDS ORDERED: *HR* Amiodarone 200 MG TABLET PO SCH (12:00)
[2016-06-10] MEDS: *HR* Amiodarone 200 MG TABLET PO SCH ×2 (12:01→21:20)
[2016-06-10] MEDS: 0.9 % Sodium Chloride 1,000 ML IVC SCH ×2 (12:11→23:20)
--- NOTE | 2016-06-10 15:50 | Electrocardiograph Report ---
[address] [place], [place] [address] Test Date: 2016-06-08 Pat Name: Janay Higginbotham Department: 104 Room: [facility] Gender: F Material Liaison: : 1940 Requested By: Paco Olivera Order Number: [id number] Reading MD: Leonard Sánchez MD Measurements Intervals [place] Rate: 99 P: CA: 0 QRS: -1 QRSD: 125 T: 227 QT: 385 QTc: 441 Interpretive Statements ATRIAL FIBRILLATION INTRAVENTRICULAR CONDUCTION DELAY Electronically Signed On 06-10-2016 15:48:46 EST by Leonard Sánchez MD
[2016-06-10] MEDS: Gabapentin 300 MG CAPSULE PO SCH (21:21)
[2016-06-10] MEDS: rOPINIRole 1 MG TABLET PO SCH (21:22)
[2016-06-10] MEDS: *HR* OxyCODONE/APAP 10/325 TABLET PO PRN (23:26)
[2016-06-11] MEDS: Ipratropium/Albuterol Neb 3 ML IH SCH ×4 (03:47→22:03)
[2016-06-11 05:18] LABS: Hemoglobin 7.7 g/dL (11.5-15.4)
[2016-06-11 05:20] LABS: Hematocrit 25.5 % (35.3-44.9); Immature Platelets 6.5 % (1.1-6.1); Mean Corpuscular HGB Conc 30.2 g/dL (31.6-35.5); Mean Corpuscular Volume 92.7 fL (83.0-100.0); Mean Platelet Volume 12.2 fL (9.4-12.4); Red Blood Count 2.75 M/mcL (3.82-4.97); Red Cell Distribution Width 19.2 % (11.5-14.5)
[2016-06-11 05:35] LABS: BUN/Creatinine Ratio 18 (6-26); Blood Urea Nitrogen 16 mg/dL (7-20); Calcium 8.5 mg/dL (8.6-10.8); Carbon Dioxide 32 mEq/L (19-29); Chloride 102 mEq/L (98-109); Glucose 99 mg/dL (70-99); Osmolality,Calculated 295 (280-300); Potassium 4.1 mEq/L (3.5-4.5); Sodium 142 mEq/L (136-145); eGFR For African Americans > 60 (> 60); eGFR For Non-African Americans > 60 (> 60)
[2016-06-11] MEDS: Pantoprazole 40 MG VIAL IVP SCH ×2 (05:37→21:20)
[2016-06-11] MEDS: predniSONE 10 MG TABLET PO SCH (09:18)
[2016-06-11] MEDS: FLUoxetine 20 MG CAPSULE PO SCH ×2 (09:18→21:21)
[2016-06-11] MEDS: *HR* Amiodarone 200 MG TABLET PO SCH ×2 (09:18→21:22)
[2016-06-11] MEDS ORDERED: Furosemide 20 MG/2 ML VIAL IVP ONE (09:35)
[2016-06-11] MEDS: Budesonide/Formoterol 160/4.5 MDI IH SCH ×2 (10:20→22:05)
--- NOTE | 2016-06-11 16:47 | Internal Med Progress Note ---
Date of Encounter: 06/11/16 Time of Encounter: 10:00 - Assessment and plan (1) Hematoma of rectus sheath Current Visit: Yes Status: Acute Assessment and plan: Hemodynamically stable at this time. Pain is controlled. Following H/H. Qualifiers: Encounter type: subsequent encounter Qualified Code(s): S30.1XXD - Contusion of abdominal wall, subsequent encounter (2) Anemia Current Visit: Yes Status: Acute Assessment and plan: Recheck tomorrow and may need further transfusion. Qualifiers: Anemia type: other cause Other causes of anemia: acute posthemorrhagic Qualified Code(s): D62 - Acute posthemorrhagic anemia (3) Atrial fibrillation Current Visit: Yes Status: Acute Assessment and plan: Off anticoagulation due to bleeding. Rate is uncontrolled at this time. Adjusting meds for better rate control. Qualifiers: Atrial fibrillation type: chronic Qualified Code(s): I48.2 - Chronic atrial fibrillation (4) Diabetes Current Visit: No Status: Chronic Assessment and plan: Monitoring blood sugars and covering as needed. 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 Given Lasix today and fluids held. Qualifiers: Congestive heart failure type: systolic Congestive heart failure chronicity : chronic Qualified Code(s): I50.22 - Chronic systolic (congestive) heart failure (6) Hypothyroidism Current Visit: No Status: Chronic Assessment and plan: Chronic Qualifiers: Hypothyroidism type: unspecified Qualified Code(s): E03.9 - Hypothyroidism , unspecified - Subjective Interval history: Ms. Higginbotham is currently admitted for acute rectus sheath hematoma extending into pelvic region resulting in acute blood loss anemia. She is high risk due to potential for complications from bleeding and anemia. Ms. Higginbotham is doing OK at this time but is frustrated with all the moving around she has done. Pain is tolerable at this time. Has had some edema and difficulty breathing today. No CP. No diarrhea. Fluids have been stopped and Lasix given. - Constitutional Vitals: Temp Pulse Resp BP Pulse Ox 98.2 F 121 15 111/68 98 06/11/16 11:39 06/11/16 11:39 06/11/16 11:39 06/11/16 10:12 06/11/16 11:39 General appearance: Present: A&O X 3, pleasant, answers questions appropriately - Head Head exam: Present: normocephalic - Eye Eye exam: Present: conjuntiva pink - ENT ENT exam: Present: mucous membranes moist - Respiratory Respiratory exam: Present: decreased breath sounds, rales - Cardiovascular Cardiovascular exam: Present: irregular rhythm. Absent: tachycardia - GI/Abdominal GI/Abdominal exam: Present: soft, tenderness - Extremities Exam Extremities exam: Present: pedal edema, warm Additional comments: R leg greater than L - Neurological Exam Neurological exam: Present: alert, oriented X3 - Psychiatric Psychiatric exam: Present: normal affect, normal mood - Skin Additional comments: Ecchymosis present Internal Medicine: Result - Labs CBC & Chem 7: 06/11/16 04:22 06/11/16 04:22 Labs: Short CBC 06/11/16 Range/Units 04:22 WBC 8.1 (4.3-11.1) K/mcL Hgb 7.7 L (11.5-15.4) g/dL Hct 25.5 L (35.3-44.9) % Plt Count 94 L (140-400) K/mcL [facility] 06/11/16 04:22 Sodium 142 Potassium 4.1 Chloride 102 Carbon Dioxide 32 H BUN 16 Creatinine 0.88 Glucose 99 Calcium 8.5 L - ABG Interpretation ABG results: ABG ABG pH 7.48 pH Units (7.32-7.45) H 06/09/16 13:31 ABG pCO2 65 mmHg (35-45) H 06/09/16 13:31 ABG pO2 90 mmHg (85-104) 06/09/16 13:31 ABG O2 Saturation 98 % (95-98) 06/09/16 13:31 PT/INR, D-dimer PT 17.9 Seconds (9.4-12.1) H 06/10/16 02:39 Consult Discharge Plan - Plan Referrals: NO,PCP [Primary Care Provider] -
[2016-06-11] MEDS: rOPINIRole 1 MG TABLET PO SCH (21:20)
[2016-06-11] MEDS: Gabapentin 300 MG CAPSULE PO SCH (21:21)
[2016-06-11] MEDS: *HR* OxyCODONE/APAP 10/325 TABLET PO PRN (21:24)
[2016-06-12 01:19] LABS: Hematocrit 25.6 % (35.3-44.9); Hemoglobin 7.5 g/dL (11.5-15.4)
[2016-06-12] MEDS: Ipratropium/Albuterol Neb 3 ML IH SCH ×4 (04:01→22:25)
[2016-06-12 04:11] LABS: Hematocrit 25.9 % (35.3-44.9); Hemoglobin 7.5 g/dL (11.5-15.4); Mean Corpuscular Hemoglobin 27.9 pg (28.0-33.3); Mean Corpuscular Volume 96.3 fL (83.0-100.0); Mean Platelet Volume 10.4 fL (9.4-12.4); Platelet Count 104 K/mcL (140-400); Red Blood Count 2.69 M/mcL (3.82-4.97); Red Cell Distribution Width 19.1 % (11.5-14.5)
[2016-06-12 04:22] LABS: BUN/Creatinine Ratio 17 (6-26); Blood Urea Nitrogen 15 mg/dL (7-20); Calcium 8.5 mg/dL (8.6-10.8); Carbon Dioxide 37 mEq/L (19-29); Chloride 100 mEq/L (98-109); Glucose 96 mg/dL (70-99); Magnesium 1.6 mg/dL (1.6-2.6); Osmolality,Calculated 295 (280-300); Potassium 3.8 mEq/L (3.5-4.5); Sodium 142 mEq/L (136-145); eGFR For African Americans > 60 (> 60); eGFR For Non-African Americans > 60 (> 60)
[2016-06-12] MEDS: Pantoprazole 40 MG VIAL IVP SCH (06:13)
[2016-06-12] MEDS: FLUoxetine 20 MG CAPSULE PO SCH ×2 (08:22→23:28)
[2016-06-12] MEDS: *HR* Amiodarone 200 MG TABLET PO SCH ×2 (08:22→22:42)
[2016-06-12] MEDS: predniSONE 10 MG TABLET PO SCH (08:23)
--- NOTE | 2016-06-12 10:28 | Venous Imaging Report ---
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 Recommendations: After imaging the patient returned to their room. Findings Venous Duplex Results: Right: Venous imaging of the lower extremity reveals full patency and normal vessel compressibility of the right distal iliac, right common femoral, right superficial femoral, right popliteal, right posterior tibial, right peroneal, right great saphenous and right lesser saphenous. Doppler signals in the evaluated veins were normal. Left: Venous imaging of the lower extremity reveals full patency and normal vessel compressibility of the left distal iliac, left common femoral, left superficial femoral, left popliteal, left posterior tibial, left peroneal, left great saphenous and left lesser saphenous. Doppler signals in the evaluated veins were normal. Prior Study: No prior study available for comparison. Lower Extremity Venous Duplex Side Vein Compress Spontaneous Flow Augment Diameter (cm) Depth (cm) Right Distal Iliac Normal Yes Phasic Yes Right Common Femoral Normal Yes Phasic Yes Right Superficial Femoral Normal Yes Phasic Yes Right Popliteal Normal Yes Phasic Yes Right Posterior Tibial Normal Yes Phasic Yes Right Peroneal Normal Yes Phasic Yes Right Great Saphenous Normal Yes Phasic Yes Right Lesser Saphenous Normal Yes Phasic Yes Left Distal Iliac Normal Yes Phasic Yes Left Common Femoral Normal Yes Phasic Yes Left Superficial Femoral Normal Yes Phasic Yes Left Popliteal Normal Yes Phasic Yes Left Posterior Tibial Normal Yes Phasic Yes Left Peroneal Normal Yes Phasic Yes Left Great Saphenous Normal Yes Phasic Yes Left Lesser Saphenous Normal Yes Phasic Yes Updated by Lyle Wheat MD, FACS on 06/12/2016 10:22:01 AM Lyle Wheat MD electronically signed on 06/12/2016 10:22:44 AM with status of Final
[2016-06-12] MEDS: Budesonide/Formoterol 160/4.5 MDI IH SCH ×2 (10:59→22:24)
[2016-06-12 11:49] LABS: INR 1.6; Prothrombin Time 17.1 Seconds (9.4-12.1)
--- NOTE | 2016-06-12 13:53 | Internal Med Progress Note ---
<GraysonBonilla murphy - Last Filed: 06/12/16 13:50> Date of Encounter: 06/12/16 Time of Encounter: 13:51 - Assessment and plan (1) Hematoma of rectus sheath Current Visit: Yes Status: Acute Assessment and plan: Hemodynamically stable at this time. Pain is minimal. H&H stable, no evidence of active bleeding. We will continue to monitor. Qualifiers: Encounter type: subsequent encounter Qualified Code(s): S30.1XXD - Contusion of abdominal wall, subsequent encounter (2) Anemia Current Visit: Yes Status: Acute Assessment and plan: Acute blood loss secondary to rectus sheath hematoma as discussed above. Hemoglobin is stable, no indication for transfusion at this time. We will continue to monitor. Qualifiers: Anemia type: other cause Other causes of anemia: acute posthemorrhagic Qualified Code(s): D62 - Acute posthemorrhagic anemia (3) Atrial fibrillation Current Visit: Yes Status: Acute Assessment and plan: Rate is 90-110, blood pressure in the 90s over 60s. Cough anticoagulation at this time due to hematoma. Given the patient's repeated episodes of bleeding the patient would like to be off blood thinners for the foreseeable future. Qualifiers: Atrial fibrillation type: chronic Qualified Code(s): I48.2 - Chronic atrial fibrillation (4) Congestive heart failure Current Visit: No Status: Chronic Assessment and plan: EF 55%, we will diuresis. Patient is having some shortness of breath and some rales in the lungs so we will obtain a chest x-ray. Qualifiers: Congestive heart failure type: systolic Congestive heart failure chronicity : chronic Qualified Code(s): I50.22 - Chronic systolic (congestive) heart failure (5) Hypothyroidism Current Visit: No Status: Chronic Assessment and plan: Chronic. Continue Synthroid. Qualifiers: Hypothyroidism type: unspecified Qualified Code(s): E03.9 - Hypothyroidism , unspecified (6) DVT prophylaxis Current Visit: No Status: Acute Assessment and plan: At this time due to concern for active bleeding. - Subjective Interval history: Patient seen and examined at bedside. Patient states she feels better. Pain is much improved. She denies chest pain, shortness of breath, nausea, vomiting , diarrhea. - Constitutional Vitals: Temp Pulse Resp BP Pulse Ox 98.5 F 116 16 98/65 97 06/12/16 07:08 06/12/16 11:00 06/12/16 11:00 06/12/16 11:00 06/12/16 11:00 General appearance: Present: A&O X 3, pleasant, answers questions appropriately - Respiratory Respiratory exam: Present: rales (Bibasilar). Absent: rhonchi, wheezes, tachypnea - Cardiovascular Cardiovascular exam: Present: irregular rhythm. Absent: gallop, rubs, systolic murmur - GI/Abdominal GI/Abdominal exam: Present: normal bowel sounds, soft. Absent: distended, tenderness - Extremities Exam Extremities exam: Absent: pedal edema - Neurological Exam Neurological exam: Present: alert, CN II-XII intact, oriented X3. Absent: no focal deficits Internal Medicine: Result - Labs CBC & Chem 7: 06/12/16 03:55 06/12/16 03:55 Labs: Short CBC 06/12/16 06/12/16 Range/Units 00:37 03:55 WBC 7.2 (4.3-11.1) K/mcL Hgb 7.5 L 7.5 L (11.5-15.4) g/dL Hct 25.6 L 25.9 L (35.3-44.9) % Plt Count 104 L (140-400) K/mcL BMP 06/12/16 03:55 Sodium 142 Potassium 3.8 Chloride 100 Carbon Dioxide 37 H BUN 15 Creatinine 0.90 Glucose 96 Calcium 8.5 L - ABG Interpretation ABG results: ABG ABG pH 7.48 pH Units (7.32-7.45) H 06/09/16 13:31 ABG pCO2 65 mmHg (35-45) H 06/09/16 13:31 ABG pO2 90 mmHg (85-104) 06/09/16 13:31 ABG O2 Saturation 98 % (95-98) 06/09/16 13:31 PT/INR, D-dimer PT 17.1 Seconds (9.4-12.1) H 06/12/16 11:36 - VTE Documentation of Mechanical Device: Intermittent pneumatic compression device Consult Discharge Plan - Plan Referrals: NO,PCP [Primary Care Provider] - <Omar Vasques - Last Filed: 06/12/16 15:51> Date of Encounter: 06/12/16 - Assessment and plan (1) Hematoma of rectus sheath Current Visit: Yes Status: Acute Qualifiers: Encounter type: subsequent encounter Qualified Code(s): S30.1XXD - Contusion of abdominal wall, subsequent encounter (2) Anemia Current Visit: Yes Status: Acute Qualifiers: Anemia type: other cause Other causes of anemia: acute posthemorrhagic Qualified Code(s): D62 - Acute posthemorrhagic anemia (3) Atrial fibrillation Current Visit: Yes Status: Acute Qualifiers: Atrial fibrillation type: chronic Qualified Code(s): I48.2 - Chronic atrial fibrillation (4) Diabetes Current Visit: No Status: Chronic Qualifiers: Diabetes mellitus type: other specified (including MEGHANA) Diabetes mellitus complication status: with kidney complications Diabetes mellitus complication detail: with chronic kidney disease Diabetes mellitus long term acute care registered nurse insulin use: without long term acute care registered nurse use Chronic kidney disease stage: stage 3 (moderate) Qualified Code(s): 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; N18.3 - Chronic kidney disease, stage 3 (moderate) (5) CHF (congestive heart failure), NYHA class I Current Visit: No Status: Suspected Qualifiers: Congestive heart failure type: systolic Congestive heart failure chronicity : chronic Qualified Code(s): I50.22 - Chronic systolic (congestive) heart failure (6) Hypothyroidism Current Visit: No Status: Chronic Qualifiers: Hypothyroidism type: unspecified Qualified Code(s): E03.9 - Hypothyroidism , unspecified - Constitutional Vitals: Temp Pulse Resp BP Pulse Ox 98.5 F 116 16 98/65 97 06/12/16 07:08 06/12/16 11:00 06/12/16 11:00 06/12/16 11:00 06/12/16 11:00 Internal Medicine: Result - Labs CBC & Chem 7: 06/12/16 03:55 06/12/16 03:55 Labs: Short CBC 06/12/16 06/12/16 Range/Units 00:37 03:55 WBC 7.2 (4.3-11.1) K/mcL Hgb 7.5 L 7.5 L (11.5-15.4) g/dL Hct 25.6 L 25.9 L (35.3-44.9) % Plt Count 104 L (140-400) K/mcL BMP 06/12/16 03:55 Sodium 142 Potassium 3.8 Chloride 100 Carbon Dioxide 37 H BUN 15 Creatinine 0.90 Glucose 96 Calcium 8.5 L - ABG Interpretation ABG results: ABG ABG pH 7.48 pH Units (7.32-7.45) H 06/09/16 13:31 ABG pCO2 65 mmHg (35-45) H 06/09/16 13:31 ABG pO2 90 mmHg (85-104) 06/09/16 13:31 ABG O2 Saturation 98 % (95-98) 06/09/16 13:31 PT/INR, D-dimer PT 17.1 Seconds (9.4-12.1) H 06/12/16 11:36 - Attending Attestation I examined this patient and my medical decision-making was reviewed with the Resident Physician on 06/12/16. I agree with the documented findings, disposition and treatment plan as described except to the extent set forth below. Ms. Higginbotham is currently admitted for acute rectus sheath hematoma with pelvic extension. She remains moderate to high risk due to potential for worsening anemia and hemodynamic issues. Ms. Higginbotham is feeling better this AM. She is really wanting to get home soon. Pain appears to be controlled. BP has been low. H/H stable. No CP. Was dypneic when up to bathroom. Still has some edema. Exam Alert and pleasant Heart irreg and slightly tachy Scattered rales Edema present I/P 1. Rectus sheath hematoma 2. Anemia due to acute blood loss Further diagnoses and plan as above.
[2016-06-12] MEDS ORDERED: *HR* Phytonadione 5 MG TABLET PO ONE (15:09)
[2016-06-12] MEDS ORDERED: Furosemide 40 MG/4 ML VIAL IVP SCH (17:00)
[2016-06-12] MEDS ORDERED: 0.9 % Sodium Chloride 250 ML IVC PRN (17:29)
[2016-06-12] MEDS ORDERED: Furosemide 20 MG/2 ML VIAL IVP PRN (17:29)
[2016-06-12] MEDS ORDERED: Levalbuterol Neb 0.63 MG/3 ML ONE (19:48)
[2016-06-12] MEDS ORDERED: Furosemide 20 MG/2 ML VIAL IVP ONE ×2 (19:56→23:16)
[2016-06-12] MEDS ORDERED: Levalbuterol Neb 1.25 MG/3 ML IH PRN (19:59)
[2016-06-12 20:07] LABS: ABG Base Excess 9.4 mEq/L (-2.0 to 3.0); ABG HCO3 39.9 mEQ/L (21-27); ABG Oxygen Saturation 100 % (95-98); ABG PO2 210 mmHg (85-104)
[2016-06-12 20:10] LABS: Blood Gas FiO2 100 %
[2016-06-12 20:11] LABS: ABG PCO2 102 mmHg (35-45)
--- NOTE | 2016-06-12 20:44 | Event Note ---
Date of Encounter: 06/12/16 Time of Encounter: 20:41 Called to patient's room by nursing staff after patient had acute onset of tachycardia and difficulty breathing. Patient has been in AFib all day with a heart rate around the 90s. She developed AFib RVR with heart rates in the 150s. She became tachypneic with O2 saturation in the low 80s. Patient evaluated by physician found to have audible wheezing and BL crackles on exam. She has 2+ pitting edema bilaterally. Patient given a xopenex breathing treatment by respiratory and 10mg cardizem for her heart rate. Heart rate remained elevated in the 120s. EKG done at this time showed atrial fibrillation with rapid ventricular rate. Stat CXR showed congestive heart failure. Patient given 20mg IVP lasix x2 for a total of 40mg. As heart rate continued in the 120-130 range, patient was given a second 10mg cardizem IVP and a cardizem drip was ordered. Stat labs (CBC, BMP, BNP, Mg, Phs) ordered and pending. ABG showed pH 7.2/pCO2 102/pO2 210/HCO3 39.9. Patient started on BiPAP. Believe patient's AFib RVR caused flash pulmonary edema and her acute respiratory distress. Will place a montilla and monitor urine output to determine further need for lasix. Patient was scheduled for blood transfusion for a Hgb of 7.5 - will hold at this time due to the volume overload. Will do a cardizem drip - start at 5mg and titrate. With that, will hold patient's evening dose of amiodarone and lopressor. Patient is on BiPAP will do a repeat ABG in one hour. Patient is breathing easier, wheezing and O2 saturation has improved. Will monitor patient closely. Attending, Dr. Chan, present for entire event and examined patient himself.
[2016-06-12] MEDS ORDERED: Levalbuterol Neb 0.63 MG/3 ML IH ONE (20:46)
[2016-06-12 21:06] LABS: Basophils % 0.1 %; Hemoglobin 8.7 g/dL (11.5-15.4); Immature Granulocytes % 2.2 % (0-4); Immature Platelets 6.6 % (1.1-6.1); Lymphocytes # 0.3 K/mcL (0.6-4.6); Mean Corpuscular Volume 96.5 fL (83.0-100.0); Mean Platelet Volume 10.9 fL (9.4-12.4); Monocytes # 0.8 K/mcL (0.0-1.3); Neutrophils # 14.1 K/mcL (1.6-8.9); Nucleated Red Blood Cells 0.1 /100 WBC (0); Platelet Count 188 K/mcL (140-400); Red Blood Count 3.11 M/mcL (3.82-4.97); Red Cell Distribution Width 19.1 % (11.5-14.5); Segmented Neutrophils % 90.7 %
[2016-06-12 21:10] LABS: Calcium 8.7 mg/dL (8.6-10.8); Magnesium 1.9 mg/dL (1.6-2.6); Phosphorous 2.9 mg/dL (2.3-4.7); Potassium 4.3 mEq/L (3.5-4.5)
[2016-06-12 21:27] LABS: ABG Base Excess 12.9 mEq/L (-2.0 to 3.0); ABG HCO3 40.1 mEQ/L (21-27); ABG Oxygen Saturation 98 % (95-98); ABG PH 7.36 pH Units (7.32-7.45); ABG PO2 115 mmHg (85-104); ABG TCO2 42.3 mEq/L (20-26)
[2016-06-12 21:28] LABS: Blood Gas FiO2 45 %
[2016-06-12 21:29] LABS: ABG PCO2 71 mmHg (35-45)
[2016-06-12 21:33] LABS: Anisocytosis 1+ (Not Present); Hypochromasia Present (Not Present)
[2016-06-12 21:34] LABS: Macrocytosis Present (Not Present)
[2016-06-12 21:35] LABS: Basophilic Stippling 1+ (Not Present)
[2016-06-12 21:36] LABS: Platelet Estimate Normal (Normal)
[2016-06-12] MEDS ORDERED: *HR* LORazepam 2 MG/ML VIAL IVP ONE (23:16)
[2016-06-12] MEDS: rOPINIRole 1 MG TABLET PO SCH (23:28)
[2016-06-12] MEDS: Gabapentin 300 MG CAPSULE PO SCH (23:28)
[2016-06-13 04:06] LABS: INR 1.6; Prothrombin Time 17.4 Seconds (9.4-12.1)
[2016-06-13 05:24] LABS: Hematocrit 25.2 % (35.3-44.9); Hemoglobin 7.3 g/dL (11.5-15.4); Immature Granulocytes % 1.4 % (0-4); Immature Platelets 6.8 % (1.1-6.1); Lymphocytes # 0.3 K/mcL (0.6-4.6); Lymphocytes % 3.6 %; Mean Corpuscular Hemoglobin 27.9 pg (28.0-33.3); Mean Corpuscular Volume 96.2 fL (83.0-100.0); Mean Platelet Volume 11.5 fL (9.4-12.4); Monocytes # 0.5 K/mcL (0.0-1.3); Monocytes % 6.5 %; Neutrophils # 6.1 K/mcL (1.6-8.9); Platelet Count 118 K/mcL (140-400); Red Blood Count 2.62 M/mcL (3.82-4.97); Red Cell Distribution Width 18.8 % (11.5-14.5); Segmented Neutrophils % 88.5 %
[2016-06-13] MEDS: Ipratropium/Albuterol Neb 3 ML IH SCH ×4 (05:28→22:51)
[2016-06-13 06:51] LABS: Anisocytosis 1+ (Not Present); Platelet Estimate Slight Decrease (Normal)
[2016-06-13 06:52] LABS: Basophilic Stippling 1+ (Not Present)
[2016-06-13 06:58] LABS: Calcium 8.4 mg/dL (8.6-10.8); Potassium 3.8 mEq/L (3.5-4.5)
[2016-06-13] MEDS ORDERED: Furosemide 20 MG/2 ML VIAL IVP ONE ×2 (08:38→11:00)
[2016-06-13] MEDS ORDERED: 0.9 % Sodium Chloride 250 ML ONE ×2 (08:43→12:45)
--- NOTE | 2016-06-13 08:43 | Internal Med Progress Note ---
<Bonilla Gomes Vitor - Last Filed: 06/13/16 08:41> Date of Encounter: 06/13/16 Time of Encounter: 08:41 - Assessment and plan (1) Hematoma of rectus sheath Current Visit: Yes Status: Acute Assessment and plan: Hemodynamically stable at this time. Pain is minimal. H&H stable, no evidence of active bleeding. We will continue to monitor. Qualifiers: Encounter type: subsequent encounter Qualified Code(s): S30.1XXD - Contusion of abdominal wall, subsequent encounter (2) Anemia Current Visit: Yes Status: Acute Assessment and plan: Acute blood loss secondary to rectus sheath hematoma as discussed above. Hemoglobin is remaining stable but is low at 7.3. Given the patient's symptoms including shortness of breath, A. fib with RVR we will transfuse 2 units. We will continue to monitor. Qualifiers: Anemia type: other cause Other causes of anemia: acute posthemorrhagic Qualified Code(s): D62 - Acute posthemorrhagic anemia (3) Atrial fibrillation Current Visit: Yes Status: Acute Assessment and plan: Patient had an episode of RVR overnight, required Cardizem drip, rate is better now, 90-110, blood pressure in the 100s over 70s. Possibly related to anemia, we will transfuse 2 units as discussed above. Hold anticoagulation at this time due to hematoma. Given the patient's repeated episodes of bleeding the patient would like to be off blood thinners for the foreseeable future. Qualifiers: Atrial fibrillation type: chronic Qualified Code(s): I48.2 - Chronic atrial fibrillation (4) Congestive heart failure Current Visit: No Status: Chronic Assessment and plan: Acute on chronic. EF 55%. Last night the patient had some shortness of breath and desaturation requiring BiPAP as well as Lasix administration. Patient is tolerating well BiPAP. We will continue with aggressive diuresis, and use BiPAP as needed. Qualifiers: Congestive heart failure type: systolic Congestive heart failure chronicity : chronic Qualified Code(s): I50.22 - Chronic systolic (congestive) heart failure (5) Hypothyroidism Current Visit: No Status: Chronic Assessment and plan: Chronic. Continue Synthroid. Qualifiers: Hypothyroidism type: unspecified Qualified Code(s): E03.9 - Hypothyroidism , unspecified (6) DVT prophylaxis Current Visit: No Status: Acute Assessment and plan: We will hold on pharmacologic DVT prophylaxis at this time due to concern for active bleeding. HEMANT hose in place. - Subjective Interval history: Patient seen and examined at bedside. Patient states she feels ok. Patient had some dyspnea overnight. Tolerated BiPAP well. Feels better this morning - Constitutional Vitals: Temp Pulse Resp BP Pulse Ox 99.4 F 117 16 106/77 92 L 06/12/16 23:34 06/13/16 07:45 06/12/16 23:34 06/13/16 07:45 06/12/16 23:34 General appearance: Present: A&O X 3, pleasant, no acute distress, answers questions appropriately - Respiratory Respiratory exam: Present: rales (bibasilar). Absent: rhonchi, wheezes - Cardiovascular Cardiovascular exam: Present: irregular rhythm. Absent: gallop, rubs, systolic murmur - GI/Abdominal GI/Abdominal exam: Present: normal bowel sounds, soft. Absent: distended, tenderness - Extremities Exam Extremities exam: Present: pedal edema (2+). Absent: calf tenderness, tenderness - Neurological Exam Neurological exam: Present: alert, CN II-XII intact, oriented X3, no focal deficits Internal Medicine: Result - Labs CBC & Chem 7: 06/13/16 03:31 06/13/16 03:31 Labs: Short CBC 06/12/16 06/13/16 Range/Units 20:52 03:31 WBC 15.5 H D 6.9 D (4.3-11.1) K/mcL Hgb 8.7 L 7.3 L (11.5-15.4) g/dL Hct 30.0 L 25.2 L (35.3-44.9) % Plt Count 188 D 118 L (140-400) K/mcL Neutrophils # 14.1 H 6.1 (1.6-8.9) K/mcL BMP 06/12/16 06/13/16 20:52 03:31 Sodium 140 141 Potassium 4.3 3.8 Chloride 100 100 Carbon Dioxide 35 H 33 H BUN 19 20 Creatinine 1.10 1.11 Glucose 216 H 142 H Calcium 8.7 8.4 L - ABG Interpretation ABG results: ABG ABG pH 7.36 pH Units (7.32-7.45) D 06/12/16 21:24 ABG pCO2 71 mmHg (35-45) H* D 06/12/16 21:24 ABG pO2 115 mmHg (85-104) H 06/12/16 21:24 ABG O2 Saturation 98 % (95-98) 06/12/16 21:24 PT/INR, D-dimer PT 17.4 Seconds (9.4-12.1) H 06/13/16 03:31 - Impressions Impressions Chest X-Ray 06/12/16 13:23 IMPRESSION: Congestive heart failure The findings were sent to the Radiology Results Communication Center at 3:36 pm on 06/12/2016to be communicated to a licensed caregiver. D/ / Bonilla Franklin MD / Bonilla Franklin MD Interpreting Provider: Bonilla Franklin MD Chest X-Ray 06/12/16 19:48 IMPRESSION: Up to moderate congestive failure. This is increased from prior study. D/ / Kb Trevizo MD / Kb Trevizo MD Interpreting Provider: Kb Trevizo MD - VTE Documentation of Mechanical Device: Graduated compression elastic hosiery Consult Discharge Plan - Plan Referrals: NO,PCP [Primary Care Provider] - <Omar Vasques - Last Filed: 06/13/16 14:05> Date of Encounter: 06/13/16 - Assessment and plan (1) Acute hypoxemic respiratory failure Current Visit: Yes Status: Acute Assessment and plan: Due to pulmonary edema. Improving after diuresis. (2) Pulmonary edema Current Visit: Yes Status: Acute Assessment and plan: Improving after diuresis. Monitoring while receiving blood today. Qualifiers: Chronicity: acute Qualified Code(s): J81.0 - Acute pulmonary edema (3) Hematoma of rectus sheath Current Visit: Yes Status: Acute Qualifiers: Encounter type: subsequent encounter Qualified Code(s): S30.1XXD - Contusion of abdominal wall, subsequent encounter (4) Anemia Current Visit: Yes Status: Acute Qualifiers: Anemia type: other cause Other causes of anemia: acute posthemorrhagic Qualified Code(s): D62 - Acute posthemorrhagic anemia (5) Atrial fibrillation Current Visit: Yes Status: Acute Qualifiers: Atrial fibrillation type: chronic Qualified Code(s): I48.2 - Chronic atrial fibrillation (6) Diabetes Current Visit: No Status: Chronic Qualifiers: Diabetes mellitus type: other specified (including MEGHANA) Diabetes mellitus complication status: with kidney complications Diabetes mellitus complication detail: with chronic kidney disease Diabetes mellitus fci insulin use: without fci use Chronic kidney disease stage: stage 3 (moderate) Qualified Code(s): 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; N18.3 - Chronic kidney disease, stage 3 (moderate) (7) CHF (congestive heart failure), NYHA class I Current Visit: No Status: Suspected Qualifiers: Congestive heart failure type: systolic Congestive heart failure chronicity : chronic Qualified Code(s): I50.22 - Chronic systolic (congestive) heart failure (8) Hypothyroidism Current Visit: No Status: Chronic Qualifiers: Hypothyroidism type: unspecified Qualified Code(s): E03.9 - Hypothyroidism , unspecified - Constitutional Vitals: Temp Pulse Resp BP Pulse Ox 98.7 F 86 14 91/78 98 06/13/16 12:41 06/13/16 12:41 06/13/16 12:41 06/13/16 12:41 06/13/16 12:41 Internal Medicine: Result - Labs CBC & Chem 7: 06/13/16 03:31 06/13/16 03:31 Labs: Short CBC 06/12/16 06/13/16 Range/Units 20:52 03:31 WBC 15.5 H D 6.9 D (4.3-11.1) K/mcL Hgb 8.7 L 7.3 L (11.5-15.4) g/dL Hct 30.0 L 25.2 L (35.3-44.9) % Plt Count 188 D 118 L (140-400) K/mcL Neutrophils # 14.1 H 6.1 (1.6-8.9) K/mcL BMP 06/12/16 06/13/16 20:52 03:31 Sodium 140 141 Potassium 4.3 3.8 Chloride 100 100 Carbon Dioxide 35 H 33 H BUN 19 20 Creatinine 1.10 1.11 Glucose 216 H 142 H Calcium 8.7 8.4 L - ABG Interpretation ABG results: ABG ABG pH 7.36 pH Units (7.32-7.45) D 06/12/16 21:24 ABG pCO2 71 mmHg (35-45) H* D 06/12/16 21:24 ABG pO2 115 mmHg (85-104) H 06/12/16 21:24 ABG O2 Saturation 98 % (95-98) 06/12/16 21:24 PT/INR, D-dimer PT 17.4 Seconds (9.4-12.1) H 06/13/16 03:31 - Impressions Impressions Chest X-Ray 06/12/16 13:23 IMPRESSION: Congestive heart failure The findings were sent to the Radiology Results Communication Center at 3:36 pm on 06/12/2016to be communicated to a licensed caregiver. D/ / Bonilla Franklin MD / Bonilla Franklin MD Interpreting Provider: Bonilla Franklin MD Chest X-Ray 06/12/16 19:48 IMPRESSION: Up to moderate congestive failure. This is increased from prior study. D/ / Kb Trevizo MD / Kb Trevizo MD Interpreting Provider: Kb Trevizo MD - Attending Attestation I examined this patient and my medical decision-making was reviewed with the Resident Physician on 06/13/16. I agree with the documented findings, disposition and treatment plan as described except to the extent set forth below. Ms. Higginbotham is currently admitted for acute rectus sheath hematoma and anemia. She is high risk due to potential for further bleeding as well as anemia needing transfusion and CHF. Ms. Higginbotham had issues with pulmonary edema last night. She became very hypoxic and had rapid atrial fibrillation. She was aggressively diuresed and placed on bipap most of the night. Cardizem drip started for heartrate. She is doing somewhat better at this time. She has diuresed some and will be receiving blood today. Exam alert. Pleasant. Comfortable Heart irreg - not tachy now. Scattered rales noted. No wheeze Edema present I/P 1. Acute hypoxic resp failure from pulmonary edema 2. Pulmonary edema 3. Anemia due to blood loss acute Further diagnoses and plan as above.
[2016-06-13] MEDS: Furosemide 40 MG/4 ML VIAL IVP SCH ×2 (08:45→17:35)
[2016-06-13] MEDS: FLUoxetine 20 MG CAPSULE PO SCH ×2 (08:46→20:07)
[2016-06-13] MEDS: *HR* Amiodarone 200 MG TABLET PO SCH ×2 (08:46→20:07)
[2016-06-13] MEDS: predniSONE 10 MG TABLET PO SCH (08:46)
[2016-06-13] MEDS: Budesonide/Formoterol 160/4.5 MDI IH SCH ×2 (11:18→22:51)
--- NOTE | 2016-06-13 18:54 | Electrocardiograph Report ---
[address] [place] [address] Test Date: 2016-06-12 Pat Name: Janay Higginbotham Department: 111 Room: 2NE25 Gender: F Operator Automated Process: : 1940 Requested By: Omar Vasques Order Number: [id number] Reading MD: Leonard Sánchez MD Measurements Intervals [place] Rate: 123 P: IA: 0 QRS: -8 QRSD: 137 T: 189 QT: 289 QTc: 362 Interpretive Statements ATRIAL FIBRILLATION WITH RAPID VENTRICULAR RESPONSE INTRAVENTRICULAR CONDUCTION DELAY, CONSIDER ATYPICAL LBBB INFERIOR MYOCARDIAL INFARCTION, OF INDETERMINATE AGE Electronically Signed On 06-13-2016 18:52:36 EST by Leonard Sánchez MD
[2016-06-13] MEDS: rOPINIRole 1 MG TABLET PO SCH (20:07)
[2016-06-13] MEDS: Gabapentin 300 MG CAPSULE PO SCH (20:08)
[2016-06-13 20:32] LABS: Hematocrit 30.5 % (35.3-44.9); Hemoglobin 9.4 g/dL (11.5-15.4); Immature Platelets 5.3 % (1.1-6.1); Lymphocytes # 0.3 K/mcL (0.6-4.6); Mean Corpuscular HGB Conc 30.8 g/dL (31.6-35.5); Mean Corpuscular Hemoglobin 28.5 pg (28.0-33.3); Mean Corpuscular Volume 92.4 fL (83.0-100.0); Mean Platelet Volume 10.7 fL (9.4-12.4); Monocytes # 0.3 K/mcL (0.0-1.3); Monocytes % 5.2 %; Neutrophils # 5.6 K/mcL (1.6-8.9); Platelet Count 128 K/mcL (140-400); Red Cell Distribution Width 18.2 % (11.5-14.5); Segmented Neutrophils % 89.8 %
[2016-06-13 21:20] LABS: Basophilic Stippling 1+ (Not Present); Polychromasia 1+ (Not Present)
[2016-06-13 21:21] LABS: Anisocytosis 1+ (Not Present)
[2016-06-13 21:23] LABS: Platelet Estimate Slight Decrease (Normal)
[2016-06-14] MEDS: *HR* OxyCODONE/APAP 10/325 TABLET PO PRN (00:09)
[2016-06-14] MEDS: Ipratropium/Albuterol Neb 3 ML IH SCH ×2 (03:47→10:55)
[2016-06-14 04:55] LABS: Basophils % 0.2 %; Hematocrit 29.1 % (35.3-44.9); Hemoglobin 8.9 g/dL (11.5-15.4); Immature Granulocytes % 0.7 % (0-4); Lymphocytes # 0.4 K/mcL (0.6-4.6); Lymphocytes % 7.4 %; Mean Corpuscular HGB Conc 30.6 g/dL (31.6-35.5); Mean Corpuscular Hemoglobin 28.7 pg (28.0-33.3); Mean Corpuscular Volume 93.9 fL (83.0-100.0); Mean Platelet Volume 11.1 fL (9.4-12.4); Monocytes # 0.4 K/mcL (0.0-1.3); Monocytes % 7.3 %; Neutrophils # 4.5 K/mcL (1.6-8.9); Platelet Count 118 K/mcL (140-400); Red Cell Distribution Width 18.3 % (11.5-14.5); Segmented Neutrophils % 84.4 %
[2016-06-14 05:00] LABS: Calcium 8.5 mg/dL (8.6-10.8); Potassium 3.4 mEq/L (3.5-4.5)
[2016-06-14] MEDS: FLUoxetine 20 MG CAPSULE PO SCH (08:30)
[2016-06-14] MEDS: predniSONE 10 MG TABLET PO SCH (08:30)
[2016-06-14] MEDS: Furosemide 40 MG/4 ML VIAL IVP SCH (08:32)
[2016-06-14] MEDS: *HR* Amiodarone 200 MG TABLET PO SCH (08:32)
--- NOTE | 2016-06-14 09:47 | Discharge Summary ---
<Bonilla Gomes - Last Filed: 06/14/16 09:45> Date of Encounter: 06/14/16 Time of Encounter: 09:45 - Discharge Diagnosis (1) Hematoma of rectus sheath Priority: Primary Status: Acute Qualifiers: Encounter type: subsequent encounter Qualified Code(s): S30.1XXD - Contusion of abdominal wall, subsequent encounter (2) Anemia Priority: Primary Status: Acute Qualifiers: Anemia type: other cause Other causes of anemia: acute posthemorrhagic Qualified Code(s): D62 - Acute posthemorrhagic anemia (3) Atrial fibrillation Priority: Secondary Status: Chronic Qualifiers: Atrial fibrillation type: chronic Qualified Code(s): I48.2 - Chronic atrial fibrillation (4) Congestive heart failure Priority: Secondary Status: Chronic Qualifiers: Congestive heart failure type: systolic Congestive heart failure chronicity : chronic Qualified Code(s): I50.22 - Chronic systolic (congestive) heart failure (5) Hypothyroidism Priority: Secondary Status: Chronic Qualifiers: Hypothyroidism type: unspecified Qualified Code(s): E03.9 - Hypothyroidism , unspecified - Discharge Medications Home Medications: Budesonide/Formoterol 160/4.5 [Symbicort] 2 puff IH BID 01/30/15 [History] FLUoxetine HCl [Prozac] 20 mg PO BID 01/30/15 [History] Isosorbide MONOnitrate (24 HR) [Imdur] 30 mg PO DAILY 01/30/15 [History] Furosemide [Lasix] 40 mg PO QPM 08/11/15 [History] Furosemide [Lasix] 80 mg PO QAM 08/11/15 [History] Oxycodone HCl/Acetaminophen [Percocet 10-325 mg Tablet] 1 tab PO Q6H PRN [History] Allopurinol [Zyloprim 300 MG] 300 mg PO DAILY 01/12/16 [History] Potassium Chloride [K-Tab ER] 20 meq PO BID 01/12/16 [History] Ropinirole HCl [Requip] 2 mg PO HS 01/12/16 [History] Sacubitril/Valsartan [Entresto 24 mg-26 mg Tablet] 1 tab PO BID 01/12/16 [ History] Calcium Carbonate [Calcium] 1,500 mg PO BID 04/22/16 [History] Gabapentin [Neurontin] 300 mg PO HS 04/22/16 [History] Ipratropium/Albuterol Neb [Duoneb] 3 ml IH Q6HR PRN 04/22/16 [History] Levothyroxine [Synthroid] 50 mcg PO DAILY 04/22/16 [History] Oxygen 2.5 l NS CONT 04/22/16 [History] Metoprolol [Lopressor] 12.5 mg PO BID #60 tablet 04/27/16 [Rx] Folic Acid 1 mg PO DAILY 05/28/16 [History] Amiodarone [Cordarone] 200 mg PO BID 05/29/16 [History] Ascorbic Acid [Vitamin C] 250 mg PO DAILY 05/29/16 [History] Ferrous Sulfate 325 mg PO BIDWM #60 tablet 06/06/16 [Rx] Allergies/Adverse Reactions: Allergies albuterol Allergy (Verified 01/09/16 19:46) Drowsy Penicillins Allergy (Verified 01/09/16 19:46) Hives Sulfa (Sulfonamide Antibiotics) Allergy (Verified 01/09/16 19:46) Hives jello Adverse Reaction (Uncoded 01/09/16 19:46) Nausea Procedures/tests Complete & Pending: Procedures Performed prior 72 hours Category Date Time Status ECG 12 lead ECG [ECG] Routine Y 06/12/16 19:55 Completed Venous Ultrasound [EV venous imaging LE BI] Routine Y 06/11/16 14:04 Completed Date of admission: 06/08/16 00:40 Primary care physician: PCP NO Consults: 06/08/16 05:50 Consult to Cardiology [CONS] Stat Comment: Consulting Provider: Cardiology Deyanira Reason for Consult: Patient with mechanical heart valve and atrial fibrillation on coagulation now with rectal sheath hematoma and Hgb of 6.6. Currently trying to reverse INR for IR procedure. Would appreciate your recommendations. Call Completed: No 06/08/16 07:31 Consult to Critical Care [CONS] Routine Consulting Provider: Pulm Crit Care & Sleep Deyanira Reason for Consult: Acute blood loss anemia Time Notified: 05:00 Call Completed: Yes 06/08/16 15:18 Consult to Legal Process Specialist [CONS] Routine Reason for SW Consult: power of associate attorney Discharging clinician: Bonilla Gomes Anticipated date of discharge: 06/14/16 - Patient Status Disposition: Home, Self-Care Condition: Fair Functional capacity at discharge: independent ambulation Overall status at discharge: patient is progressing back to baseline - Discharge Instructions Instructions: Atrial Fibrillation (DC), Acute Respiratory Distress Syndrome (DC ), Anemia (GEN) Follow Up With: Francisco Melgar Jr [Non-Partnered Physician] - 06/18/16 2:00 pm NO,PCP [Primary Care Provider] - Additional Instructions: Please follow-up with your primary care and one to 2 weeks. Please have your labs rechecked at the discretion of her primary care physician. Please discontinue Coumadin. Please resume your other home medications. Please return for any new or worsening symptoms including chest pain, shortness of breath, any active bleeding. - Diet and Activity Activity: increase activity as tolerated Diet: advance to your usual diet Interval History: Patient seen and examined at bedside. Patient has no complaints today. Patient says she feels pretty good. Patient states her breathing is at baseline. She denies chest pain. She denies any active bleeding, she denies abdominal pain, nausea, vomiting, diarrhea. Hospital course: Ms. Higginbotham is a 75 year old female with history of COPD, atrial fibrillation presented initially with left lower quadrant abdominal pain. Prior to this admission the patient was discharged with acute blood loss anemia resumed to be from GI bleed, although no definitive source was identified. Patient return for abdominal pain and a CT scan revealed a hematoma of the rectus sheath. Patient was anemic on presentation with hemoglobin 7.1 and was transfused 4 units. Her Coumadin was reversed. Her hospitalization was complicated by pulmonary edema and acute respiratory failure requiring BiPAP. Patient was diuresed and responded well. She is hemoglobin slowly trended down and she was transfused 2 units on the day prior to discharge. Hemoglobin is rechecked prior to discharge. Patient will be discharged home in stable condition. Patient no longer wishes to take Coumadin and we are in agreement with this plan given multiple hospitalizations for bleeding. We would recommend a repeat CBC after follow-up with the patient's primary care physician. - Time Spent with Patient Total time spent providing and/or coordinating discharge services: - Constitutional Vitals: Temp Pulse Resp BP Pulse Ox 98.3 F 79 16 96/64 96 06/14/16 06:30 06/14/16 06:30 06/14/16 06:30 06/14/16 06:30 06/14/16 06:30 General appearance: Present: A&O X 3, pleasant, no acute distress, answers questions appropriately - Respiratory Respiratory exam: Present: CTAB. Absent: rales, rhonchi, wheezes - Cardiovascular Cardiovascular exam: Present: irregular rhythm. Absent: gallop, rubs, systolic murmur, tachycardia - GI/Abdominal GI/Abdominal exam: Present: normal bowel sounds. Absent: distended, soft, tenderness - Extremities Exam Extremities exam: Present: pedal edema (trace) - Neurological Exam Neurological exam: Present: alert, CN II-XII intact, oriented X3, no focal deficits - VTE Documentation of Mechanical Device: Graduated compression elastic hosiery <Omar Vasques Renee - Last Filed: 06/14/16 13:04> Date of Encounter: 06/14/16 - Discharge Diagnosis (1) Hematoma of rectus sheath Priority: Primary Status: Acute Qualifiers: Encounter type: subsequent encounter Qualified Code(s): S30.1XXD - Contusion of abdominal wall, subsequent encounter (2) Acute hypoxemic respiratory failure Priority: Primary Status: Acute (3) Pulmonary edema Priority: Primary Status: Acute Qualifiers: Chronicity: acute Qualified Code(s): J81.0 - Acute pulmonary edema (4) Anemia Status: Acute Qualifiers: Anemia type: other cause Other causes of anemia: acute posthemorrhagic Qualified Code(s): D62 - Acute posthemorrhagic anemia (5) Atrial fibrillation Status: Chronic Qualifiers: Atrial fibrillation type: chronic Qualified Code(s): I48.2 - Chronic atrial fibrillation (6) Diabetes Priority: Secondary Status: Chronic Qualifiers: Diabetes mellitus type: other specified (including [place]) Diabetes mellitus complication status: with kidney complications Diabetes mellitus complication detail: with chronic kidney disease Diabetes mellitus mcfp insulin use: without mcfp use Chronic kidney disease stage: stage 3 (moderate) Qualified Code(s): 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; N18.3 - Chronic kidney disease, stage 3 (moderate) (7) CHF (congestive heart failure), NYHA class I Priority: Secondary Status: Suspected Qualifiers: Congestive heart failure type: systolic Congestive heart failure chronicity : acute on chronic Qualified Code(s): I50.23 - Acute on chronic systolic ( congestive) heart failure (8) Hypothyroidism Status: Chronic Qualifiers: Hypothyroidism type: unspecified Qualified Code(s): E03.9 - Hypothyroidism , unspecified Procedures/tests Complete & Pending: Procedures Performed prior 72 hours Category Date Time Status ECG 12 lead ECG [ECG] Routine Y 06/12/16 19:55 Completed Venous Ultrasound [EV venous imaging LE BI] Routine Y 06/11/16 14:04 Completed Date of admission: 06/08/16 00:40 Primary care physician: PCP NO Consults: 06/08/16 05:50 Consult to Cardiology [CONS] Stat Comment: Consulting Provider: Cardiology Deyanira Reason for Consult: Patient with mechanical heart valve and atrial fibrillation on coagulation now with rectal sheath hematoma and Hgb of 6.6. Currently trying to reverse INR for IR procedure. Would appreciate your recommendations. Call Completed: No 06/08/16 07:31 Consult to Critical Care [CONS] Routine Consulting Provider: Pulm Crit Care & Sleep Deyanira Reason for Consult: Acute blood loss anemia Time Notified: 05:00 Call Completed: Yes 06/08/16 15:18 Consult to Legal Process Specialist [CONS] Routine Reason for SW Consult: power of associate attorney [facility] course: Ms. Higginbotham is a 75 year old female - Time Spent with Patient Total time spent providing and/or coordinating discharge services: 40min - Constitutional Vitals: Temp Pulse Resp BP Pulse Ox 97.8 F 98 16 98/72 95 06/14/16 11:17 06/14/16 11:17 06/14/16 11:17 06/14/16 11:17 06/14/16 11:17 - Attending Attestation I examined this patient and my medical decision-making was reviewed with the Resident Physician on 06/14/16. I agree with the documented findings, disposition and treatment plan as described except to the extent set forth below. Ms. Gaytan is feeling better today. No CP or SOB. More energy. Feels ready to go home. Exam Alert. Comfortable Heart irreg - not tachy Lungs no wheeze Plan D/C today Follow up with PCP
[2016-06-14] MEDS: Budesonide/Formoterol 160/4.5 MDI IH SCH (10:55)
[2016-06-14 11:18] VITALS: BP 98/72
[2016-06-14 12:27] LABS: Hemoglobin 10.2 g/dL (11.5-15.4); Immature Platelets 5.1 % (1.1-6.1); Mean Corpuscular Hemoglobin 28.3 pg (28.0-33.3); Mean Corpuscular Volume 94.2 fL (83.0-100.0); Mean Platelet Volume 10.4 fL (9.4-12.4); Platelet Count 128 K/mcL (140-400); Red Blood Count 3.61 M/mcL (3.82-4.97); Red Cell Distribution Width 18.3 % (11.5-14.5)
[2016-06-14 12:33] LABS: INR 1.1; Prothrombin Time 12.3 Seconds (9.4-12.1)
[2016-06-14 12:58] LABS: Lymphocytes # 0.4 K/mcL (0.6-4.6); Monocytes # 0.4 K/mcL (0.0-1.3); Neutrophils # 5.6 K/mcL (1.6-8.9)
[2016-06-14 12:59] LABS: Anisocytosis 1+ (Not Present); Platelet Estimate Slight Decrease (Normal)
[2016-06-14 13:00] LABS: Basophilic Stippling 1+ (Not Present)
[2016-06-14 13:01] LABS: Hypochromasia Present (Not Present); Microcytosis Present (Not Present); Poikilocytosis 1+ (Not Present)
--- NOTE | 2016-06-14 13:28 | Physician Discharge Referral ---
Home Health/Hosp Referral Info Transfer to: Home Health Provider in Charge Post Discharge: PCP - Diagnosis (1) Hematoma of rectus sheath Priority: Primary Status: Acute (2) Acute hypoxemic respiratory failure Priority: Primary Status: Acute (3) Pulmonary edema Priority: Secondary Status: Acute (4) Anemia Priority: Primary Status: Acute (5) Atrial fibrillation Priority: Secondary Status: Chronic (6) Diabetes Priority: Secondary Status: Chronic (7) CHF (congestive heart failure), NYHA class I Priority: Secondary Status: Suspected (8) Hypothyroidism Priority: Secondary Status: Chronic - Respiratory Orders Oxygen / L per min (Maintain saturation greater than 90%) Smoking Cessation: Smoking cessation has been advised. For more information, call the [employer] Tobacco Quit Line at 0-952-VGAO-NOW. - Diet/Nutrition Diet/Nutrition Orders: Cardiac - Activity Activity Orders: Up ad edita - Services Needed Following services are medically necessary services: Nursing, Physical Therapy, Occupational Therapy - Transfer Medications Home Medications: Budesonide/Formoterol 160/4.5 [Symbicort] 2 puff IH BID 01/30/15 [History] FLUoxetine HCl [Prozac] 20 mg PO BID 01/30/15 [History] Isosorbide MONOnitrate (24 HR) [Imdur] 30 mg PO DAILY 01/30/15 [History] Furosemide [Lasix] 40 mg PO QPM 08/11/15 [History] Furosemide [Lasix] 80 mg PO QAM 08/11/15 [History] Oxycodone HCl/Acetaminophen [Percocet 10-325 mg Tablet] 1 tab PO Q6H PRN [History] Allopurinol [Zyloprim 300 MG] 300 mg PO DAILY 01/12/16 [History] Potassium Chloride [K-Tab ER] 20 meq PO BID 01/12/16 [History] Ropinirole HCl [Requip] 2 mg PO HS 01/12/16 [History] Sacubitril/Valsartan [Entresto 24 mg-26 mg Tablet] 1 tab PO BID 01/12/16 [ History] Calcium Carbonate [Calcium] 1,500 mg PO BID 04/22/16 [History] Gabapentin [Neurontin] 300 mg PO HS 04/22/16 [History] Ipratropium/Albuterol Neb [Duoneb] 3 ml IH Q6HR PRN 04/22/16 [History] Levothyroxine [Synthroid] 50 mcg PO DAILY 04/22/16 [History] Oxygen 2.5 l NS CONT 04/22/16 [History] Metoprolol [Lopressor] 12.5 mg PO BID #60 tablet 04/27/16 [Rx] Folic Acid 1 mg PO DAILY 05/28/16 [History] Amiodarone [Cordarone] 200 mg PO BID 05/29/16 [History] Ascorbic Acid [Vitamin C] 250 mg PO DAILY 05/29/16 [History] Ferrous Sulfate 325 mg PO BIDWM #60 tablet 06/06/16 [Rx] Allergies/Adverse Reactions: Allergies albuterol Allergy (Verified 01/09/16 19:46) Drowsy Penicillins Allergy (Verified 01/09/16 19:46) Hives Sulfa (Sulfonamide Antibiotics) Allergy (Verified 01/09/16 19:46) Hives jello Adverse Reaction (Uncoded 01/09/16 19:46) Nausea Certification: Further, I certify that my clinical findings support that this patient is homebound (i.e. absences from home require considerable and taxing effort and are for medical reasons or gnosticism services or infrequently or short duration when for other reasons) because: Homebound Reason: Patient requires assistance of a person or device to safely leave home, Leaving home requires considerable and taxing effort due to condition, Severity of cardiac or pulmonary status limits activity tolerance Attestation: My signature below is to certify that this patient is under my care and that I, or nurse practitioner, or a physician's oceanographer assistant working with me, has a face-to -face encounter with this patient.
== END 2016-06-14 13:45 | disposition home or self-care (01) | DRG 604 ==
LOC: EMEROO 20:00 → SUATTDRO 06-08 00:40 → ICNU 06-08 00:40 → 3NENU 06-09 18:36 → 2NENU 06-10 16:35
PROVIDERS: ADMIT Internal Medicine; ATTEND Internal Medicine

== ENCOUNTER 2016-07-12 15:38 | Observation (INO) ==
[2016-07-12 17:13] LABS: Basophils # 0.1 K/mcL (0.0-0.2); Basophils % 0.7 %; Eosinophils % 0.3 %; Hematocrit 33.3 % (35.3-44.9); Hemoglobin 10.1 g/dL (11.5-15.4); Immature Granulocytes % 0.8 % (0-4); Lymphocytes # 0.9 K/mcL (0.6-4.6); Lymphocytes % 11.8 %; Mean Corpuscular HGB Conc 30.3 g/dL (31.6-35.5); Mean Corpuscular Hemoglobin 28.8 pg (28.0-33.3); Mean Corpuscular Volume 94.9 fL (83.0-100.0); Mean Platelet Volume 10.4 fL (9.4-12.4); Monocytes # 0.4 K/mcL (0.0-1.3); Neutrophils # 6.2 K/mcL (1.6-8.9); Platelet Count 131 K/mcL (140-400); Red Blood Count 3.51 M/mcL (3.82-4.97); Red Cell Distribution Width 18.6 % (11.5-14.5); Segmented Neutrophils % 81.4 %
[2016-07-12 17:17] LABS: Prothrombin Time 10.8 Seconds (9.4-12.1)
[2016-07-12 17:20] LABS: Activated Partial Thrombo Time 27.3 Seconds (26.0-36.0)
[2016-07-12 17:23] LABS: Calcium 9.4 mg/dL (8.6-10.8); Magnesium 1.7 mg/dL (1.6-2.6); Potassium 4.5 mEq/L (3.5-4.5)
[2016-07-12] MEDS ORDERED: 0.9 % Sodium Chloride 1,000 ML IVC ONE (17:33)
--- NOTE | 2016-07-12 17:41 | Emergency Department Note ---
Disposition Clinical Impression: Dehydration Acute kidney failure Qualifiers: Acute renal failure type: unspecified Qualified Code(s): N17.9 - Acute kidney failure, unspecified Hypotension Qualifiers: Hypotension type: other hypotension type Qualified Code(s): I95.89 - Other hypotension Disposition: Admitted As Inpatient Referrals: Francisco Meglar Jr [Primary Care Provider] - Forms: ED Satisfaction Letter, Work/School Release General Adult HPI - General Chief complaint: ED General Medical Stated complaint: Needs hemoglobin checked Time Seen by Provider: 07/12/16 16:41 Source: patient Limitations: no limitations Nursing Notes Reviewed: Yes Vital Signs Reviewed: Yes - History of Present Illness HPI Narrative: Patient is a 75-year-old female who has a history of A. fib was on Coumadin had a rectal she hematoma. She was admitted the hospital Coumadin was stopped she is with have a repeat hemoglobin check she did this 2 days ago but was unsure results. She still states she has been weak and tired so her nurse advisor, to the ER to have her hemoglobin checked again. She denies any fevers chills nausea vomiting or diarrhea she does complain of easy bruising and some superficial skin tears Pain Scale: 0 Consistency: constant Associated symptoms: Denies: chest pain, cough, nausea/vomiting Treatments Prior to Arrival: none - Related Data Home Medications Medication Instructions Recorded Confirmed Budesonide/Formoterol 160/4.5 2 puff IH BID 01/30/15 06/08/16 [Symbicort] FLUoxetine HCl [Prozac] 20 mg PO BID 01/30/15 06/08/16 Isosorbide MONOnitrate (24 HR) 30 mg PO DAILY 01/30/15 06/08/16 [Imdur] Furosemide [Lasix] 40 mg PO QPM 08/11/15 06/08/16 Furosemide [Lasix] 80 mg PO QAM 08/11/15 06/08/16 Oxycodone HCl/Acetaminophen 1 tab PO Q6H PRN 08/12/15 06/08/16 [Percocet 10-325 mg Tablet] Allopurinol [Zyloprim 300 MG] 300 mg PO DAILY 01/12/16 06/08/16 Potassium Chloride [K-Tab ER] 20 meq PO BID 01/12/16 06/08/16 Ropinirole HCl [Requip] 2 mg PO HS 01/12/16 06/08/16 Sacubitril/Valsartan [Entresto 24 1 tab PO BID 01/12/16 06/08/16 mg-26 mg Tablet] Calcium Carbonate [Calcium] 1,500 mg PO BID 04/22/16 06/08/16 Gabapentin [Neurontin] 300 mg PO HS 04/22/16 06/08/16 Ipratropium/Albuterol Neb [Duoneb] 3 ml IH Q6HR PRN 04/22/16 06/08/16 Levothyroxine [Synthroid] 50 mcg PO DAILY 04/22/16 06/08/16 Oxygen 2.5 l NS CONT 04/22/16 06/08/16 Folic Acid 1 mg PO DAILY 05/28/16 06/08/16 Amiodarone [Cordarone] 200 mg PO BID 05/29/16 06/08/16 Ascorbic Acid [Vitamin C] 250 mg PO DAILY 05/29/16 06/08/16 Previous Rx's Medication Instructions Recorded Metoprolol [Lopressor] 12.5 mg PO BID #60 tablet 04/27/16 Ferrous Sulfate 325 mg PO BIDWM #60 tablet 06/06/16 Allergies Allergy/AdvReac Type Severity Reaction Status Date / Time albuterol Allergy Drowsy Verified 07/12/16 15:52 gabapentin Allergy Hallucinati Verified 07/12/16 15:52 ng Penicillins Allergy Hives Verified 07/12/16 15:52 Sulfa (Sulfonamide Allergy Hives Verified 07/12/16 15:52 Antibiotics) jello AdvReac Nausea Uncoded 07/12/16 15:52 All systems ED: reviewed and negative except as stated. Constitutional: Reports: weakness. Denies: fever, chills Cardiovascular: Denies: chest pain Gastrointestinal: Denies: abdominal pain, nausea, vomiting Hematological/Lymphatic: Reports: easy bleeding Past Medical History - Past Medical History Source: patient, old records reviewed, obtained from family, nursing notes reviewed Medical history: Reports: atrial fibrillation, cancer, CHF, COPD, diabetes, GI bleed, valvular heart disease, other Surgical history: Reports: appendectomy, breast surgery, coronary bypass (CABG) , heart valve replacement, hysterectomy, pacemaker/AICD Psychiatric history: Reports: anxiety, depression CAPITAL MARKETS SPECIALIST history: Reports: no CAPITAL MARKETS SPECIALIST history - Social History Smoking Status: Former smoker Smokeless Tobacco Status: No Alcohol use: Reports: none Drug use: Reports: none Physical Exam - General Limitations: no limitations General appearance: alert, in no apparent distress - Head Head exam: atraumatic, normocephalic, normal inspection - Eye Eye exam: Present: normal appearance, PERRL, EOMI - Expanded Eye Exam Pupils: Left: reactive - ENT ENT exam: normal exam, normal oropharynx, mucous membranes moist - Expanded ENT Exam External ear exam: Present: normal external inspection Mouth exam: Present: normal external inspection Teeth exam: Present: normal inspection Throat exam: Present: normal inspection - Neck Neck exam: Present: normal inspection, full ROM, trachea midline - Chest Chest inspection: Present: normal inspection, symmetric chest wall rise - Respiratory Respiratory exam: Present: prolonged expiratory phase - Cardiovascular Cardiovascular exam: Present: regular rate, normal rhythm, normal heart sounds - Abdominal Exam Abdominal exam: Present: soft, Non-Tender. Absent: tenderness, distention, guarding, rebound, rigidity - Extremities Exam Extremities exam: Present: normal inspection, full ROM. Absent: tenderness, pedal edema - Expanded Upper Extremity Exam Shoulder exam: Present: normal inspection, full ROM Arm exam: Present: normal inspection, full ROM Elbow exam: Present: normal inspection, full ROM Forearm/Wrist exam: Present: normal inspection, full ROM Hand exam: Present: normal inspection, full ROM Vascular exam: Normal: capillary refill, radial pulse - Expanded Lower Extremity Exam Hip/Pelvis exam: Present: normal inspection, full ROM Upper leg exam: Present: normal inspection, full ROM Knee exam: Present: normal inspection, full ROM Lower leg exam: Present: normal inspection, full ROM Ankle exam: Present: normal inspection, full ROM Foot/toe exam: Present: normal inspection, full ROM Neurovascular/Tendon exam: Absent: motor deficit, sensory deficit, tendon deficit - Back Exam Back exam: Present: normal inspection, full ROM. Absent: tenderness - Neurological Exam Neurological exam: Present: alert, oriented X3 - Expanded Neurological Exam Patient oriented to: Present: person, place, time Coma Scale Eye Opening: Spontaneous Coma Scale Motor Response: Obeys Commands Coma Scale Verbal Response: Oriented Coma Scale Total: 15 - Psychiatric Psychiatric exam: Present: normal affect, normal mood - Skin Skin exam: Present: other (Multiple bruising mostly arm skin tear left arm with adhesive dressing) Course Vital Signs Temperature 97.7 F 07/12/16 15:45 Pulse Rate 80 07/12/16 15:45 Respiratory Rate 18 07/12/16 15:45 Blood Pressure 78/46 07/12/16 15:45 O2 Sat by Pulse Oximetry 100 07/12/16 15:45 Temperature 97.7 F 07/12/16 15:45 Pulse Rate 91 07/12/16 18:29 Respiratory Rate 18 07/12/16 18:29 Blood Pressure 86/53 07/12/16 18:29 O2 Sat by Pulse Oximetry 94 L 07/12/16 18:29 Oxygen Delivery Oxygen Delivery Room Air Medical Decision Making - Lab Data Result diagrams: 07/12/16 17:00 07/12/16 17:00 Lab Results 07/12/16 07/12/16 07/12/16 Range/Units 17:00 17:00 17:00 WBC 7.6 (4.3-11.1) K/mcL RBC 3.51 L (3.82-4.97) M/mcL Hgb 10.1 L (11.5-15.4) g/dL Hct 33.3 L (35.3-44.9) % MCV 94.9 (83.0-100.0) fL MCH 28.8 (28.0-33.3) pg MCHC 30.3 L (31.6-35.5) g/dL RDW 18.6 H (11.5-14.5) % Plt Count 131 L (140-400) K/mcL MPV 10.4 (9.4-12.4) fL Immature Gran % 0.8 (0-4) % Seg Neutrophils % 81.4 % Lymphocytes % 11.8 % Monocytes % 5.0 % Eosinophils % 0.3 % Basophils % 0.7 % Neutrophils # 6.2 (1.6-8.9) K/mcL Lymphocytes # 0.9 (0.6-4.6) K/mcL Monocytes # 0.4 (0.0-1.3) K/mcL Eosinophils # 0.0 (0.0-0.6) K/mcL Basophils # 0.1 (0.0-0.2) K/mcL PT 10.8 (9.4-12.1) Seconds INR 1.0 APTT 27.3 (26.0-36.0) Seconds Sodium 139 (136-145) mEq/L Potassium 4.5 (3.5-4.5) mEq/L Chloride 97 L (98-109) mEq/L Carbon Dioxide 31 H (19-29) mEq/L BUN 83 H (7-20) mg/dL Creatinine 3.77 H (0.57-1.11) mg/dL Est GFR ( Amer) 14 L (> 60) Est GFR (Non-Af Amer) 12 L (> 60) BUN/Creatinine Ratio 22 (6-26) Glucose 103 H (70-99) mg/dL Calculated Osmolality 313 H (280-300) Calcium 9.4 (8.6-10.8) mg/dL Magnesium 1.7 (1.6-2.6) mg/dL Blood Type Antibody Screen 07/12/16 Range/Units 17:00 WBC (4.3-11.1) K/mcL RBC (3.82-4.97) M/mcL Hgb (11.5-15.4) g/dL Hct (35.3-44.9) % MCV (83.0-100.0) fL MCH (28.0-33.3) pg MCHC (31.6-35.5) g/dL RDW (11.5-14.5) % Plt Count (140-400) K/mcL MPV (9.4-12.4) fL Immature Gran % (0-4) % Seg Neutrophils % % Lymphocytes % % Monocytes % % Eosinophils % % Basophils % % Neutrophils # (1.6-8.9) K/mcL Lymphocytes # (0.6-4.6) K/mcL Monocytes # (0.0-1.3) K/mcL Eosinophils # (0.0-0.6) K/mcL Basophils # (0.0-0.2) K/mcL PT (9.4-12.1) Seconds INR APTT (26.0-36.0) Seconds Sodium (136-145) mEq/L Potassium (3.5-4.5) mEq/L Chloride (98-109) mEq/L Carbon Dioxide (19-29) mEq/L BUN (7-20) mg/dL Creatinine (0.57-1.11) mg/dL Est GFR ( Amer) (> 60) Est GFR (Non-Af Amer) (> 60) BUN/Creatinine Ratio (6-26) Glucose (70-99) mg/dL Calculated Osmolality (280-300) Calcium (8.6-10.8) mg/dL Magnesium (1.6-2.6) mg/dL Blood Type O POSITIVE Antibody Screen NEGATIVE Critical Care Time Critical Care Time: Yes Total Critical Care Time: 35 Attestation: The high probability of a clinically significant, sudden or life threatening deterioration of the [] system(s) required my full and direct attention, intervention and personal management. The aggregate critical care time was [] minutes. This time is in addition to time spent performing reported procedures but includes the following: [] Data Review and interpretation [] Patient assessment and monitoring of vital signs [] Documentation [] Medication orders and management
[2016-07-12] MEDS ORDERED: 0.9 % Sodium Chloride 1,000 ML IVC SCH (20:00)
[2016-07-12] MEDS ORDERED: Acetaminophen 325 MG TABLET PO PRN (22:24)
[2016-07-12] MEDS ORDERED: Naloxone 0.4 MG/ML INJ IVP PRN (22:24)
[2016-07-12] MEDS ORDERED: Ipratropium/Albuterol Neb 3 ML IH PRN (22:27)
[2016-07-12] MEDS ORDERED: *HR* OxyCODONE/APAP 10/325 TABLET PO PRN (22:27)
--- NOTE | 2016-07-12 22:38 | Internal Med History&Physical ---
<Alexandra Paniagua - Last Filed: 07/13/16 00:30> Date of Encounter: 07/12/16 Time of Encounter: 22:35 Assessment and Plan (1) Cueeu-ar-sugvyyz kidney injury Current visit: No Status: Acute Patient with BUN/Cr of 83/3.77 up from 10/05.11 previously on 06/14. This is likely due to poor oral intake and dehydration. Patient reports poor appetite and nausea since discharge on 06/14. She follows with Dr. Tidwell as an outpatient for CKD. Hold metolazone, valsartan/sacubitril. 1L fluid bolus given, Continuous IV fluids 0.9NS at 100mL/hr UA with micro and culture ordered Retroperitoneal US REcheck chemistry in the morning Consult to Nephrology. (2) COPD (chronic obstructive pulmonary disease) Current visit: Yes Status: Acute Patient reports she is at her baseline in terms of shortness of breath. She wears 2.5L of O2 at home and is satting 90% on 3L here. Continue home doses of Symbicort Duoneb treatments QID titrate O2 to maintain oxygen saturation > 90% Qualifiers: COPD type: chronic bronchitis Chronic bronchitis type: mucopurulent Qualified Code(s): J41.1 - Mucopurulent chronic bronchitis (3) Dehydration Current visit: Yes Status: Acute Patient reports poor oral intake over the last month. She also has chronic diarrhea. BUN/Cr of 83/3.77. mucous membranes appear dry on exam. 1L fluid bolus given. IV fluids 0.9NS @ 100mL/hr. Hold metolazone. (4) Hypotension Current visit: Yes Status: Acute Patient reports her blood pressure always runs low. Looking at previous admission, her blood pressures ran 70s-100s systolic. Continue to monitor. Qualifiers: Hypotension type: unspecified hypotension type Qualified Code(s): I95.9 - Hypotension, unspecified (5) Congestive heart failure Current visit: No Status: Chronic Patient with history of CHF. She denies any increased shortness of breath at this time, but endorses increased BLE swelling. On exam, +1 pitting edema in BLE. Echocardiogram 04/22/16 showed EF 55%, mild LV diastolic dysfunction. Holding Metolazone, valsartan/sacubitril, imdur due to dehydration, SON and hypotension. Will get CXR as we are giving patient fluids for dehydration and SON. Qualifiers: Congestive heart failure type: systolic Congestive heart failure chronicity : chronic Qualified Code(s): I50.22 - Chronic systolic (congestive) heart failure (6) Atrial fibrillation Current visit: Yes Status: Chronic Patient with pacemaker/AICD Continue home doses of metoprolol, amiodarone. Coumadin stopped 1 month ago due to GI bleeding. Qualifiers: Atrial fibrillation type: paroxysmal Qualified Code(s): I48.0 - Paroxysmal atrial fibrillation (7) DVT prophylaxis Current visit: No Status: Acute Ambulate with assistance Sequential compression devices pharmacologic anticoagulation contraindicated in patient with recent GI bleed. Internal Medicine - H&P: HPI Chief complaint: dehydration Admitted From: Emergency Dept Plans for Post Hospital Care: Home History of present illness: Ms. Higginbotham is a 75 year old female with atrial fibrillation, congestive heart failure, COPD, history of aortic valve replacement 2, history of GI bleed, history of breast cancer status post mastectomy, presented to the emergency department today with lightheadedness, poor appetite, nausea, fatigue, and weakness and was found to be dehydrated with acute kidney injury. She was recently admitted with GI bleed and her Coumadin was stopped. Patient reports she has diarrhea, however this has been going on for 6 months, she follows with Dr. Rojo, and has had multiple colonoscopies. She reports her nausea and poor appetite has been going on since her discharge from her last hospitalization on 06/14. She also reports palpitations, which are chronic, shortness of breath, which is chronic and not increased from her baseline. Ports tingling in her fingertips, and mild bilateral leg swelling. She denies any chest pain, cough, abdominal pain, vomiting, fever, chills, sweats, or dysuria. Evaluation in the emergency department was significant for elevated BUN and creatinine of 83 and 3.77, up from last values of 20 and 1.11 respectively. Patient was anemic with hemoglobin of 10.1, however this is in line with recent values. INR was normal at 1.0 consistent with her history of stopped Coumadin. On exam, patient is alert and oriented, in no acute distress. Heart has irregular rhythm, with significant systolic murmur. Lungs are clear bilaterally to auscultation. Bilateral lower extremities have +1 edema. Past Med Surg Social Fam HX - Past Medical History Medical history: atrial fibrillation, cancer (breast), CHF, COPD, GI bleed, thyroid disease, valvular heart disease (aortic stenosis), other Psychiatric history: anxiety, depression - Past Surgical History Surgical History: appendectomy, breast surgery, cancer surgery, heart valve replacement (aortic valve replacement x 2 ), hysterectomy, pacemaker/AICD - Social History Smoking Status: Former smoker (50 pack year history) Smokeless Tobacco Status: No Alcohol use: none Drug use: none - Family History Mother Family Member Ethnicity: Non- Living Status: Age at : 76 Cause of : alzheimers Hx Family Cardiac Disorders: No Hx Family Respiratory Disorders: No Hx Family Cancer: Yes Hx Family GI Disorders: No Hx Family Endocrine Disorder: No Hx Family Neuromuscular Disorders: No Hx Family Neurologic Disorders: No Hx Family HEENT Disorders: No Hx Family Autoimmune Disorders: No Father Living Status: Age at : 52 Cause of : heart exploded Hx Family Cardiac Disorders: Yes Hx Family Respiratory Disorders: No Hx Family Cancer: Yes Hx Family GI Disorders: No Hx Family Endocrine Disorder: No Hx Family Neuromuscular Disorders: No Hx Family Neurologic Disorders: No Hx Family HEENT Disorders: No Hx Family Autoimmune Disorders: No Internal Medicine - H&P: Meds Budesonide/Formoterol 160/4.5 [Symbicort] 2 puff IH BID 01/30/15 [History] FLUoxetine HCl [Prozac] 20 mg PO BID 01/30/15 [History] Isosorbide MONOnitrate (24 HR) [Imdur] 30 mg PO DAILY 01/30/15 [History] Oxycodone HCl/Acetaminophen [Percocet 10-325 mg Tablet] 1 tab PO Q6H PRN [History] Allopurinol [Zyloprim 300 MG] 300 mg PO DAILY 01/12/16 [History] Potassium Chloride [K-Tab ER] 20 meq PO BID 01/12/16 [History] Ropinirole HCl [Requip] 2 mg PO HS 01/12/16 [History] Sacubitril/Valsartan [Entresto 24 mg-26 mg Tablet] 1 tab PO BID 01/12/16 [ History] Calcium Carbonate [Calcium] 1,500 mg PO BID 04/22/16 [History] Ipratropium/Albuterol Neb [Duoneb] 3 ml IH Q6HR PRN 04/22/16 [History] Levothyroxine [Synthroid] 50 mcg PO DAILY 04/22/16 [History] Oxygen 2.5 l NS CONT 04/22/16 [History] Metoprolol [Lopressor] 12.5 mg PO BID #60 tablet 04/27/16 [Rx] Folic Acid 1 mg PO DAILY 05/28/16 [History] Amiodarone [Cordarone] 200 mg PO BID 05/29/16 [History] Ascorbic Acid [Vitamin C] 250 mg PO DAILY 05/29/16 [History] Ferrous Sulfate 325 mg PO BIDWM #60 tablet 06/06/16 [Rx] Metolazone [Zaroxolyn] 2.5 mg PO Q48H 07/12/16 [History] Ranitidine HCl [Acid Portable Machine Cutter] 150 mg PO BID 07/12/16 [History] Allergies albuterol Allergy (Verified 07/12/16 15:52) Drowsy gabapentin Allergy (Verified 07/12/16 15:52) Hallucinating Penicillins Allergy (Verified 07/12/16 15:52) Hives Sulfa (Sulfonamide Antibiotics) Allergy (Verified 07/12/16 15:52) Hives jello Adverse Reaction (Uncoded 07/12/16 15:52) Nausea All Systems PM: A 10-system review of systems was performed and is negative for pertinent findings except as documented above in the HPI. - Constitutional Constitutional: anorexia, fatigue, weakness, no chills, no fever(s), no night sweats - EENT Eyes: no change in vision, no discharge, no pain, no photophobia Ears: no ear discharge, no ear pain, no tinnitus Nose, mouth and throat: no dysphagia, no nasal discharge, no neck pain, no sore throat - Cardiovascular Cardiovascular ROS IM: dyspnea on exertion, lightheadedness, palpitations, no chest pain, no diaphoresis, no dyspnea, no syncope - Respiratory Respiratory: dyspnea, dyspnea on exertion, no cough, no wheezing, no excessive phlegm production - Gastrointestinal Gastrointestinal: diarrhea, nausea, no abdominal pain, no hematemesis, no hematochezia, no melena, no vomiting - Genitourinary Genitourinary: no change in urinary stream, no dysuria, no flank pain, no hematuria - Musculoskeletal Musculoskeletal ROS IM: tingling (fingertips), no numbness - Integumentary Integumentary IM: no rash, no unusual bruising - Neurological Neurological ROS: no confusion, no convulsions, no focal weakness, no numbness, no tingling, no tremor(s) - Hematologic/Lymphatic Hematologic/Lymphatic: easy bleeding, easy bruising - Constitutional Vitals: Temp Pulse Resp BP Pulse Ox 98.1 F 83 16 71/42 88 L 07/12/16 20:57 07/12/16 20:57 07/12/16 20:57 07/12/16 20:57 07/12/16 21:27 General appearance: Present: A&O X 3, pleasant, no acute distress - Head Head exam: Present: atraumatic, normocephalic - Eye Eye exam: Present: PERRL, conjuntiva pink, sclera anicteric Pupils: Present: PERRL - Neck Neck exam general surgery: Present: supple, trachea midline. Absent: lymphadenopathy - Respiratory Respiratory exam: Present: CTAB. Absent: accessory muscle use, rales, rhonchi, wheezes - Cardiovascular Cardiovascular exam: Present: irregular rhythm, +S1, +S2, systolic murmur. Absent: diastolic murmur, gallop, rubs - GI/Abdominal GI/Abdominal exam: Present: normal bowel sounds, soft, tenderness (mild tenderness in RLQ), no peritoneal signs. Absent: distended - Extremities Exam Extremities exam: Present: pedal edema (+1 BLE edema), warm, radial pulses palpable and symetrical. Absent: calf tenderness, cyanotic - Neurological Exam Neurological exam: Present: CN II-XII intact, oriented X3, no focal deficits. Absent: facial droop, speech deficit - Skin Skin exam: Present: dry, intact Internal Med - H&P Results - Labs CBC & Chem 7: 07/12/16 17:00 07/12/16 17:00 Labs: All Lab Results (24 Hours) 07/12/16 07/12/16 07/12/16 Range/Units 17:00 17:00 17:00 WBC 7.6 (4.3-11.1) K/mcL RBC 3.51 L (3.82-4.97) M/mcL Hgb 10.1 L (11.5-15.4) g/dL Hct 33.3 L (35.3-44.9) % MCV 94.9 (83.0-100.0) fL MCH 28.8 (28.0-33.3) pg MCHC 30.3 L (31.6-35.5) g/dL RDW 18.6 H (11.5-14.5) % Plt Count 131 L (140-400) K/mcL MPV 10.4 (9.4-12.4) fL Immature Gran % 0.8 (0-4) % Seg Neutrophils % 81.4 % Lymphocytes % 11.8 % Monocytes % 5.0 % Eosinophils % 0.3 % Basophils % 0.7 % Neutrophils # 6.2 (1.6-8.9) K/mcL Lymphocytes # 0.9 (0.6-4.6) K/mcL Monocytes # 0.4 (0.0-1.3) K/mcL Eosinophils # 0.0 (0.0-0.6) K/mcL Basophils # 0.1 (0.0-0.2) K/mcL PT 10.8 (9.4-12.1) Seconds INR 1.0 APTT 27.3 (26.0-36.0) Seconds Sodium 139 (136-145) mEq/L Potassium 4.5 (3.5-4.5) mEq/L Chloride 97 L (98-109) mEq/L Carbon Dioxide 31 H (19-29) mEq/L BUN 83 H (7-20) mg/dL Creatinine 3.77 H (0.57-1.11) mg/dL Est GFR ( Amer) 14 L (> 60) Est GFR (Non-Af Amer) 12 L (> 60) BUN/Creatinine Ratio 22 (6-26) Glucose 103 H (70-99) mg/dL Calculated Osmolality 313 H (280-300) Calcium 9.4 (8.6-10.8) mg/dL Magnesium 1.7 (1.6-2.6) mg/dL Blood Type Antibody Screen 07/12/16 Range/Units 17:00 WBC (4.3-11.1) K/mcL RBC (3.82-4.97) M/mcL Hgb (11.5-15.4) g/dL Hct (35.3-44.9) % MCV (83.0-100.0) fL MCH (28.0-33.3) pg MCHC (31.6-35.5) g/dL RDW (11.5-14.5) % Plt Count (140-400) K/mcL MPV (9.4-12.4) fL Immature Gran % (0-4) % Seg Neutrophils % % Lymphocytes % % Monocytes % % Eosinophils % % Basophils % % Neutrophils # (1.6-8.9) K/mcL Lymphocytes # (0.6-4.6) K/mcL Monocytes # (0.0-1.3) K/mcL Eosinophils # (0.0-0.6) K/mcL Basophils # (0.0-0.2) K/mcL PT (9.4-12.1) Seconds INR APTT (26.0-36.0) Seconds Sodium (136-145) mEq/L Potassium (3.5-4.5) mEq/L Chloride (98-109) mEq/L Carbon Dioxide (19-29) mEq/L BUN (7-20) mg/dL Creatinine (0.57-1.11) mg/dL Est GFR ( Amer) (> 60) Est GFR (Non-Af Amer) (> 60) BUN/Creatinine Ratio (6-26) Glucose (70-99) mg/dL Calculated Osmolality (280-300) Calcium (8.6-10.8) mg/dL Magnesium (1.6-2.6) mg/dL Blood Type O POSITIVE Antibody Screen NEGATIVE <Jim Johnson - Last Filed: 07/13/16 05:04> Internal Medicine - H&P: HPI History of present illness: Ms. Higginbotham is a 75 year old female All Systems PM: A 10-system review of systems was performed and is negative for pertinent findings except as documented above in the HPI. - Constitutional Vitals: Temp Pulse Resp BP Pulse Ox 97.8 F 79 18 96/58 100 07/13/16 01:08 07/13/16 01:08 07/13/16 01:08 07/13/16 01:08 07/13/16 01:08 Internal Med - H&P Results - Labs CBC & Chem 7: 07/12/16 17:00 07/12/16 17:00 Labs: Urine 07/12/16 Range/Units 22:45 Urine Color Yellow (Yellow) Urine Clarity Clear (Clear) Urine pH 5.5 (5.0-8.0) pH Units Ur Specific [place] 1.013 (1.010-1.025) Urine Protein Negative (Neg-Trace) mg/dL Urine Glucose (UA) Normal (Normal) mg/dL - Impressions ITS Impressions Chest X-Ray 07/12/16 22:26 IMPRESSION: 1. Cardiomegaly with vascular congestion. D/ / Mayo Isbell MD / Mayo Isbell MD Interpreting Provider: Mayo Isbell MD - Attending Attestation I examined this patient and my medical decision-making was reviewed with the UNIVERSITY PROFESSOR/PA/Advanced Practice Nurse/Resident Physician. I agree with the documented findings, disposition and treatment plan as described except to the extent set forth below. Kidney injury, avoid nephrotoxic agents, continue with IV fluids. Repeat kidney function tests.
[2016-07-12 22:52] LABS: Bilirubin,Urine Negative (Negative); Blood,Urine Negative (Negative); Clarity,Urine Clear (Clear); Color,Urine Yellow (Yellow); Glucose,Urine (UA) Normal (Normal); Ketones,Urine Negative (Negative); Leukocyte Esterase,Urine Negative (Negative); Nitrite,Urine Negative (Negative); PH,Urine 5.5 pH Units (5.0-8.0); Protein,Urine Negative (Neg-Trace); Specific Gravity,Urine 1.013 (1.010-1.025); Urobilinogen,Urine Normal (Normal)
[2016-07-12] MEDS: Budesonide/Formoterol 160/4.5 MDI IH SCH (23:55)
[2016-07-12] MEDS: rOPINIRole 1 MG TABLET PO SCH (23:55)
[2016-07-12] MEDS: FLUoxetine 20 MG CAPSULE PO SCH (23:55)
[2016-07-12] MEDS: *HR* Amiodarone 200 MG TABLET PO SCH (23:58)
[2016-07-13] MEDS: Ipratropium/Albuterol Neb 3 ML IH SCH ×4 (04:19→22:02)
[2016-07-13] MEDS ORDERED: 0.9 % Sodium Chloride 300 ML IVC ONE (05:28)
[2016-07-13 06:30] LABS: Basophils % 0.8 %; Eosinophils % 0.2 %; Hematocrit 29.9 % (35.3-44.9); Hemoglobin 8.9 g/dL (11.5-15.4); Lymphocytes # 0.9 K/mcL (0.6-4.6); Lymphocytes % 17.4 %; Mean Corpuscular HGB Conc 29.8 g/dL (31.6-35.5); Mean Corpuscular Hemoglobin 28.4 pg (28.0-33.3); Mean Corpuscular Volume 95.5 fL (83.0-100.0); Mean Platelet Volume 10.8 fL (9.4-12.4); Monocytes # 0.4 K/mcL (0.0-1.3); Monocytes % 6.7 %; Neutrophils # 3.9 K/mcL (1.6-8.9); Platelet Count 122 K/mcL (140-400); Red Blood Count 3.13 M/mcL (3.82-4.97); Red Cell Distribution Width 18.3 % (11.5-14.5); Segmented Neutrophils % 73.9 %
[2016-07-13 06:37] LABS: Calcium 8.6 mg/dL (8.6-10.8); Potassium 4.2 mEq/L (3.5-4.5)
[2016-07-13] MEDS ORDERED: Famotidine 20 MG TABLET PO SCH (07:30)
[2016-07-13] MEDS ORDERED: Isosorbide MONOnitrate (24 HR) 30 MG TAB.ER.24H PO SCH (09:00)
--- NOTE | 2016-07-13 09:40 | Nephrology Consult Note ---
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 Suspect multifactorial etiology. Will start work up (see HPI) and order labs that I had ordered when I first meet her in the clinic (this is the second time I'm seeing her). Will check renal U/S to follow up on the renal stones that were seen on the May CT abd (noncontrast). Avoid hypotension as this would decrease renal perfusion: agree with holding the Entresto (which is associated with a risk for AKIs). It may not be advisable to resume at discharge. Acceptable to hold her diuretics for a day or so, but she is at risk for volume overload easily given her known hx of CMP. Anemia: suspect of chronic disease. Has been on oral iron studies. If no recent iron labs/studies drawn recently, I will order these for the AM. No urgent indication for EXECUTIVE PERSONAL ASSISTANT today (Friday), since her renal function is trending better with holding nephrotoxic agents and gentle volume expansion. I recommend slowing the IVF to just 60mL/hr and will limit to 1L. Follow a renal protective strategy in general: avoid nephrotoxins such as NSAIDs , Bactrim, Contrast Renal, cardiac, diabetic diets. Low sodium diet. Strict I/Os and daily weights. She is asking to discharge today to get to her new home that she just moved into. Discussed with the hospitalists. Though reluctant, I would be okay with discharge, however, she will need to have a BMP checked on Friday and faxed to me for close folllow up in my CKD clinic. She should not discharge on the Entresto d/t several AKIs. Would keep her on the same dosing of the diuretics for now and it's time to wean off the IVF later today as described above. Thank you for consulting the [facility] group. Will follow with you. (2) Chronic kidney disease, stage 3 Current Visit: No Status: Chronic See above (3) Hypotension Current Visit: No Status: Chronic See above Qualifiers: Hypotension type: other hypotension type Qualified Code(s): I95.89 - Other hypotension (4) Anemia Current Visit: No Status: Acute See above Qualifiers: Anemia type: other cause Other causes of anemia: acute posthemorrhagic Qualified Code(s): D62 - Acute posthemorrhagic anemia History of Present Illness - Reason for Consult Consult date: 07/13/16 Acute Kidney Injury, Chronic Kidney Disease Requesting physician: Jim Johnson - Chief Complaint SON on CKD - History of Present Illness Janay Higginbotham is a very pleasant 75 y/o WF lady with a pmh of COPD, CAD s/p CABG + AvR on chronic anticoagulation but s/p recent GIB and rectus hematua, CKD stage III with frequent AKIs, and et al who presented with anemia and overall decline. Nephrolog was consulted for SON on progressive CKD. I've seen her once before in the CKD clinic back in Apr but d/t two hospitalizations in May , she missed her follow up appt. I had recommended renal work up and renal imaging (none of these labs appear to have been drawn yet. She typically takes Lasix 40mg po bid and Metolazone 2.5mg po q48hr plus Entresto 24mg/26mg bid. I reviewed her recent hospitalizations in detail during which she had AKIs. There was a noncontrast CT abd which ruled out any hydronephrosis but she did have nonobstructing punctate renal stones. She did not affirm NSAID use or FHx of ESRD. No recent N/V/D or F/C or dysuria. Past Med Surg Social Fam HX - Past Medical History Medical history: atrial fibrillation, cancer (breast), CHF, COPD, GI bleed, thyroid disease, valvular heart disease (aortic stenosis), other Psychiatric history: anxiety, depression - Past Surgical History Surgical History: appendectomy, breast surgery, cancer surgery, heart valve replacement (aortic valve replacement x 2 ), hysterectomy, pacemaker/AICD - Social History Smoking Status: Former smoker (50 pack year history) Smokeless Tobacco Status: No Alcohol use: none Drug use: none - Family History Mother Family Member Ethnicity: Non- Living Status: Age at : 76 Cause of : alzheimers Hx Family Cardiac Disorders: No Hx Family Respiratory Disorders: No Hx Family Cancer: Yes Hx Family GI Disorders: No Hx Family Endocrine Disorder: No Hx Family Neuromuscular Disorders: No Hx Family Neurologic Disorders: No Hx Family HEENT Disorders: No Hx Family Autoimmune Disorders: No Father Living Status: Age at : 52 Cause of : heart exploded Hx Family Cardiac Disorders: Yes Hx Family Respiratory Disorders: No Hx Family Cancer: Yes Hx Family GI Disorders: No Hx Family Endocrine Disorder: No Hx Family Neuromuscular Disorders: No Hx Family Neurologic Disorders: No Hx Family HEENT Disorders: No Hx Family Autoimmune Disorders: No Medications and Allergies Budesonide/Formoterol 160/4.5 [Symbicort] 2 puff IH BID 01/30/15 [History] FLUoxetine HCl [Prozac] 20 mg PO BID 01/30/15 [History] Isosorbide MONOnitrate (24 HR) [Imdur] 30 mg PO DAILY 01/30/15 [History] Oxycodone HCl/Acetaminophen [Percocet 10-325 mg Tablet] 1 tab PO Q6H PRN [History] Allopurinol [Zyloprim 300 MG] 300 mg PO DAILY 01/12/16 [History] Potassium Chloride [K-Tab ER] 20 meq PO BID 01/12/16 [History] Ropinirole HCl [Requip] 2 mg PO HS 01/12/16 [History] Sacubitril/Valsartan [Entresto 24 mg-26 mg Tablet] 1 tab PO BID 01/12/16 [ History] Calcium Carbonate [Calcium] 1,500 mg PO BID 04/22/16 [History] Ipratropium/Albuterol Neb [Duoneb] 3 ml IH Q6HR PRN 04/22/16 [History] Levothyroxine [Synthroid] 50 mcg PO DAILY 04/22/16 [History] Oxygen 2.5 l NS CONT 04/22/16 [History] Metoprolol [Lopressor] 12.5 mg PO BID #60 tablet 04/27/16 [Rx] Folic Acid 1 mg PO DAILY 05/28/16 [History] Amiodarone [Cordarone] 200 mg PO BID 05/29/16 [History] Ascorbic Acid [Vitamin C] 250 mg PO DAILY 05/29/16 [History] Ferrous Sulfate 325 mg PO BIDWM #60 tablet 06/06/16 [Rx] Metolazone [Zaroxolyn] 2.5 mg PO Q48H 07/12/16 [History] Ranitidine HCl [Acid Asbestos Removal Supervisor] 150 mg PO BID 07/12/16 [History] Allergies albuterol Allergy (Verified 07/12/16 15:52) Drowsy gabapentin Allergy (Verified 07/12/16 15:52) Hallucinating Penicillins Allergy (Verified 07/12/16 15:52) Hives Sulfa (Sulfonamide Antibiotics) Allergy (Verified 07/12/16 15:52) Hives jello Adverse Reaction (Uncoded 07/12/16 15:52) Nausea Review of Systems All Systems: reviewed and no additional remarkable complaints except as stated Exam - Vital Signs Vital signs: Initial Vital Signs Temp Pulse Resp BP Pulse Ox 97.7 F 80 18 78/46 100 07/12/16 15:45 07/12/16 15:45 07/12/16 15:45 07/12/16 15:45 07/12/16 15:45 Vital Signs - Last 8 Hours Temp Pulse Resp BP Pulse Ox 07/13/16 06:59 97.6 F 94 15 88/53 99 07/13/16 06:04 84 87/52 07/13/16 05:10 97.8 F 83 14 78/50 97 Intake and Output 07/12/16 07/13/16 07/13/16 23:59 07:59 15:59 Intake Total 852 / 852 Output Total 200 / 200 Balance 652 / 652 Intake: IV Fluids 852 / 852 0.9 % Sodium Chloride 1, 852 / 852 000 ML @ 100 mls/hr IVC . Q10H [facility] Rx#:[id number] Oral 0 / 0 Output: Urine 200 / 200 Other: Weight 88 kg Patient Weight 07/13/16 23:59 Weight 88 kg - General Appearance General appearance: well-developed, well-nourished, appears started age EENT: ATNC, PERRL, mucous membranes moist Neck: supple Respiratory: clear Cardiology: holosystolic murmur, no edema, regular rhythm, irregular rhythm, normal S1, normal S2 Gastrointestinal: normoactive bowel sounds, no tenderness, no guarding Integumentary: ecchymotic Neurologic: no focal deficit, no asterixis, alert and oriented x3 Musculoskeletal: no deformities, no erythema, no cyanosis, no clubbing Psychiatric: mood/affect appropriate Results - Lab Results 07/13/16 06:07 07/13/16 06:07 Most recent lab results Calcium 8.6 mg/dL (8.6-10.8) 07/13/16 06:07 Magnesium 1.7 mg/dL (1.6-2.6) 07/12/16 17:00 I reviewed the above autogenerated data and also reviewed prior hospitalization notes and clinic based medical records. I reviewed her home and inpt meds, plus labs, vitals, imaging and I/Os. Consult Discharge Plan - Plan Instructions: Heart Failure (DC), Atrial Fibrillation (DC), Gastrointestinal Bleeding (DC), Gastrointestinal Bleeding (GEN), Rectal Bleeding (DC), Rectal Bleeding (GEN), Acute Kidney Injury (DC), Acute Kidney Injury (GEN), Diabetes Mellitus Type 2 in Adults (DC), Chronic Obstructive Pulmonary Disease (DC), Anemia (GEN), Acute Kidney Injury, Paper Hanger (GEN) Referrals: Francisco Melgar Jr [Primary Care Provider] -
[2016-07-13] MEDS: FLUoxetine 20 MG CAPSULE PO SCH ×2 (10:06→20:35)
[2016-07-13] MEDS: Folic Acid 1 MG TABLET PO SCH (10:06)
[2016-07-13] MEDS: *HR* Amiodarone 200 MG TABLET PO SCH ×2 (10:06→20:35)
[2016-07-13] MEDS: Ascorbic Acid 500 MG TABLET PO SCH (10:06)
[2016-07-13] MEDS: Budesonide/Formoterol 160/4.5 MDI IH SCH ×2 (10:16→22:02)
[2016-07-13] MEDS ORDERED: 0.9 % Sodium Chloride 1,000 ML IVC SCH (12:45)
[2016-07-13] MEDS: rOPINIRole 1 MG TABLET PO SCH (20:35)
--- NOTE | 2016-07-13 21:30 | Internal Med Progress Note ---
Date of Encounter: 07/13/16 Time of Encounter: 13:00 - Assessment and plan (1) Ischemic cardiomyopathy Current Visit: Yes Status: Acute Assessment and plan: Avoid excessive fluid hydration due to low ejection fraction. Per most recent echocardiogram EF is 50% increase from 30% previously. Stop diuretic. Continue management with beta lauryn. (2) Chronic systolic heart failure Current Visit: Yes Status: Acute (3) Jvqqy-cf-[id number] kidney injury Current Visit: No Status: Acute Assessment and plan: Patient's creatinine is 3.4 from a baseline of 1.1. We will treat this with IV fluids. Stop Entresto due to the valsartan, component. I discussed the case with nephrology. We will monitor kidney function closely. We will continue current IV hydration. Avoid nephrotoxins. Check creatinine in the morning and if improved consider discharging all mushtaq inhibitors and ARB. (4) DVT prophylaxis Current Visit: No Status: Acute Assessment and plan: Encourage early ambulation. - Subjective Interval history: Patient presented to the hospital with lightheadedness and weakness, currently improved. She was found to have acute kidney injury. - Constitutional Vitals: Temp Pulse Resp BP Pulse Ox 98.6 F 102 16 100/55 99 07/13/16 20:20 07/13/16 20:20 07/13/16 20:20 07/13/16 20:20 07/13/16 20:32 General appearance: Present: A&O X 3, pleasant, no acute distress - Respiratory Respiratory exam: Present: CTAB. Absent: accessory muscle use, rales, rhonchi, wheezes - Cardiovascular Cardiovascular exam: Present: RRR, +S1, +S2. Absent: diastolic murmur, gallop, rubs, systolic murmur - GI/Abdominal GI/Abdominal exam: Present: normal bowel sounds, soft, no peritoneal signs. Absent: distended, tenderness - Extremities Exam Extremities exam: Present: warm, radial pulses palpable and symetrical. Absent : calf tenderness, cyanotic, pedal edema - Skin Skin exam: Present: dry, intact Internal Medicine: Result - Labs CBC & Chem 7: 07/13/16 06:07 07/13/16 06:07 Labs: Short CBC 07/13/16 Range/Units 06:07 WBC 5.2 (4.3-11.1) K/mcL Hgb 8.9 L (11.5-15.4) g/dL Hct 29.9 L (35.3-44.9) % Plt Count 122 L (140-400) K/mcL Neutrophils # 3.9 (1.6-8.9) K/mcL BMP 07/13/16 06:07 Sodium 140 Potassium 4.2 Chloride 103 Carbon Dioxide 29 BUN 75 H Creatinine 2.95 H Glucose 101 H Calcium 8.6 Urine 07/12/16 Range/Units 22:45 Urine Color Yellow (Yellow) Urine Clarity Clear (Clear) Urine pH 5.5 (5.0-8.0) pH Units Ur Specific Tyner 1.013 (1.010-1.025) Urine Protein Negative (Neg-Trace) mg/dL Urine Glucose (UA) Normal (Normal) mg/dL - ABG Interpretation ABG results: PT/INR, D-dimer PT 10.8 Seconds (9.4-12.1) 07/12/16 17:00 - Impressions Impressions Chest X-Ray 07/12/16 22:26 IMPRESSION: 1. Cardiomegaly with vascular congestion. D/ / Mayo Isbell MD / Mayo Isbell MD Interpreting Provider: Mayo Isbell MD Consult Discharge Plan - Plan Instructions: Heart Failure (DC), Atrial Fibrillation (DC), Gastrointestinal Bleeding (DC), Gastrointestinal Bleeding (GEN), Rectal Bleeding (DC), Rectal Bleeding (GEN), Acute Kidney Injury (DC), Acute Kidney Injury (GEN), Diabetes Mellitus Type 2 in Adults (DC), Chronic Obstructive Pulmonary Disease (DC), Anemia (GEN), Acute Kidney Injury, Project Internship (GEN) Referrals: Francisco Melgar Jr [Primary Care Provider] -
[2016-07-14] MEDS: Ipratropium/Albuterol Neb 3 ML IH SCH ×3 (04:06→16:19)
[2016-07-14 07:28] LABS: Albumin 2.4 g/dL (3.5-5.0); Calcium 8.8 mg/dL (8.6-10.8); Phosphorous 3.2 mg/dL (2.3-4.7); Potassium 3.7 mEq/L (3.5-4.5)
[2016-07-14 07:30] LABS: Basophils % 0.6 %; Eosinophils % 0.4 %; Hematocrit 30.3 % (35.3-44.9); Immature Granulocytes % 0.8 % (0-4); Lymphocytes # 0.7 K/mcL (0.6-4.6); Lymphocytes % 13.8 %; Mean Corpuscular HGB Conc 29.7 g/dL (31.6-35.5); Mean Corpuscular Hemoglobin 28.5 pg (28.0-33.3); Mean Corpuscular Volume 95.9 fL (83.0-100.0); Mean Platelet Volume 10.3 fL (9.4-12.4); Monocytes # 0.4 K/mcL (0.0-1.3); Monocytes % 7.2 %; Neutrophils # 3.9 K/mcL (1.6-8.9); Platelet Count 109 K/mcL (140-400); Red Blood Count 3.16 M/mcL (3.82-4.97); Red Cell Distribution Width 18.2 % (11.5-14.5); Segmented Neutrophils % 77.2 %
[2016-07-14] MEDS ORDERED: Famotidine 20 MG TABLET PO SCH (07:30)
[2016-07-14] MEDS: Folic Acid 1 MG TABLET PO SCH (10:27)
[2016-07-14] MEDS: Ascorbic Acid 500 MG TABLET PO SCH (10:27)
[2016-07-14] MEDS: *HR* Amiodarone 200 MG TABLET PO SCH (10:30)
[2016-07-14] MEDS: FLUoxetine 20 MG CAPSULE PO SCH (10:33)
[2016-07-14] MEDS: Budesonide/Formoterol 160/4.5 MDI IH SCH (10:47)
[2016-07-14 11:53] VITALS: BP 84/50
[2016-07-14] MEDS ORDERED: 0.9 % Sodium Chloride 250 ML IVC ONE (12:01)
[2016-07-14] MEDS ORDERED: 0.9 % Sodium Chloride 250 ML ONE (12:05)
--- NOTE | 2016-07-14 15:18 | Discharge Summary ---
Date of Encounter: 07/14/16 Time of Encounter: 15:13 - Discharge Diagnosis (1) Ischemic cardiomyopathy Priority: Secondary Status: Acute (2) Chronic systolic heart failure Priority: Secondary Status: Acute (3) [id number]-[id number] kidney injury Priority: Primary Status: Acute (4) DVT prophylaxis Priority: Secondary Status: Acute - Discharge Medications Home Medications: Budesonide/Formoterol 160/4.5 [Symbicort] 2 puff IH BID 01/30/15 [History] FLUoxetine HCl [Prozac] 20 mg PO BID 01/30/15 [History] Isosorbide MONOnitrate (24 HR) [Imdur] 30 mg PO DAILY 01/30/15 [History] Oxycodone HCl/Acetaminophen [Percocet 10-325 mg Tablet] 1 tab PO Q6H PRN [History] Allopurinol [Zyloprim 300 MG] 300 mg PO DAILY 01/12/16 [History] Ropinirole HCl [Requip] 2 mg PO HS 01/12/16 [History] Calcium Carbonate [Calcium] 1,500 mg PO BID 04/22/16 [History] Ipratropium/Albuterol Neb [Duoneb] 3 ml IH Q6HR PRN 04/22/16 [History] Levothyroxine [Synthroid] 50 mcg PO DAILY 04/22/16 [History] Oxygen 2.5 l NS CONT 04/22/16 [History] Metoprolol [Lopressor] 12.5 mg PO BID #60 tablet 04/27/16 [Rx] Folic Acid 1 mg PO DAILY 05/28/16 [History] Amiodarone [Cordarone] 200 mg PO BID 05/29/16 [History] Ascorbic Acid [Vitamin C] 250 mg PO DAILY 05/29/16 [History] Ferrous Sulfate 325 mg PO BIDWM #60 tablet 06/06/16 [Rx] Metolazone [Zaroxolyn] 2.5 mg PO Q48H 07/12/16 [History] Ranitidine HCl [Acid But[employer]] 150 mg PO BID 07/12/16 [History] Allergies/Adverse Reactions: Allergies albuterol Allergy (Verified 07/12/16 15:52) Drowsy gabapentin Allergy (Verified 07/12/16 15:52) Hallucinating Penicillins Allergy (Verified 07/12/16 15:52) Hives Sulfa (Sulfonamide Antibiotics) Allergy (Verified 07/12/16 15:52) Hives jello Adverse Reaction (Uncoded 07/12/16 15:52) Nausea Procedures/tests Complete & Pending: Procedures Performed prior 72 hours Category Date Time Status Retroperitoneal Ultrasound - Complete [US Exams 07/12/16 23:04 Ordered retroperitoneal comp] [US] Routine Date of admission: 07/12/16 19:13 Primary care physician: Francisco Melgar Jr Consults: 07/13/16 00:28 Consult to Nephrology [CONS] Routine Consulting Provider: Kidney Deyanira/DANE/TEVIN/PRISCILLA Reason for Consult: 75F with SON on CKD. Cr 3.77. 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 Higginbotham is a 75 year old female with atrial fibrillation , congestive heart failure, COPD, history of aortic valve replacement 2, history of GI bleed, history of breast cancer status post mastectomy, presented to the emergency department today with lightheadedness, poor appetite, nausea, fatigue, and weakness and was found to be dehydrated with acute kidney injury. She was recently admitted with GI bleed and her Coumadin was stopped. Patient reports she has diarrhea, however this has been going on for 6 months, she follows with Dr. Rojo, and has had multiple colonoscopies. She reports her nausea and poor appetite has been going on since her discharge from her last hospitalization on 06/14. She also reports palpitations, which are chronic, shortness of breath, which is chronic and not increased from her baseline. Ports tingling in her fingertips, and mild bilateral leg swelling. She denies any chest pain, cough, abdominal pain, vomiting, fever, chills, sweats, or dysuria. Evaluation in the emergency department was significant for elevated BUN and creatinine of 83 and 3.77, up from last values of 20 and 1.11 respectively. Patient was anemic with hemoglobin of 10.1, however this is in line with recent values. INR was normal at 1.0 consistent with her history of stopped Coumadin. Hospital course: Patient was admitted to the medical service. She received treatment with IV fluids. Nephrology was consulted. Entresto was placed on hold and will not be restarted on discharge. Lasix and metolazone were held. Creatinine came down progressively. Her generalized weakness has resolved. She is currently asymptomatic and back to baseline and will be discharged home. She will follow up closely with nephrology. She was instructed to resume taking her Lasix as per her prior regimen, she was instructed to take her metolazone 3 times a week. - Time Spent with Patient Total time spent providing and/or coordinating discharge services: - Constitutional Vitals: Temp Pulse Resp BP Pulse Ox 98.2 F 84 15 84/50 96 07/14/16 11:52 07/14/16 11:52 07/14/16 11:52 07/14/16 11:52 07/14/16 11:52 General appearance: Present: A&O X 3, pleasant, no acute distress - Respiratory Respiratory exam: Present: CTAB. Absent: accessory muscle use, rales, rhonchi, wheezes - Cardiovascular Cardiovascular exam: Present: RRR, +S1, +S2. Absent: diastolic murmur, gallop, rubs, systolic murmur - GI/Abdominal GI/Abdominal exam: Present: normal bowel sounds, soft, no peritoneal signs. Absent: distended, tenderness
--- NOTE | 2016-07-14 19:15 | Physician Discharge Referral ---
Home Health/Hosp Referral Info Transfer to: Home Health Provider in Charge Post Discharge: PCP - Diagnosis (1) Ischemic cardiomyopathy Status: Acute (2) Chronic systolic heart failure Status: Acute (3) [id number] kidney injury Status: Acute (4) DVT prophylaxis Status: Acute - Respiratory Orders Smoking Cessation: Smoking cessation has been advised. For more information, call the [place] Tobacco Quit Line at 0-243-HYNK-NOW. - Diet/Nutrition Diet/Nutrition Orders: Cardiac, No Concentrated Sweets - Activity Activity Orders: Ambulate - Services Needed Following services are medically necessary services: Nursing, Home Health Aide, Physical Therapy - Transfer Medications Home Medications: Budesonide/Formoterol 160/4.5 [Symbicort] 2 puff IH BID 01/30/15 [History] FLUoxetine HCl [Prozac] 20 mg PO BID 01/30/15 [History] Isosorbide MONOnitrate (24 HR) [Imdur] 30 mg PO DAILY 01/30/15 [History] Oxycodone HCl/Acetaminophen [Percocet 10-325 mg Tablet] 1 tab PO Q6H PRN [History] Allopurinol [Zyloprim 300 MG] 300 mg PO DAILY 01/12/16 [History] Ropinirole HCl [Requip] 2 mg PO HS 01/12/16 [History] Calcium Carbonate [Calcium] 1,500 mg PO BID 04/22/16 [History] Ipratropium/Albuterol Neb [Duoneb] 3 ml IH Q6HR PRN 04/22/16 [History] Levothyroxine [Synthroid] 50 mcg PO DAILY 04/22/16 [History] Oxygen 2.5 l NS CONT 04/22/16 [History] Metoprolol [Lopressor] 12.5 mg PO BID #60 tablet 04/27/16 [Rx] Folic Acid 1 mg PO DAILY 05/28/16 [History] Amiodarone [Cordarone] 200 mg PO BID 05/29/16 [History] Ascorbic Acid [Vitamin C] 250 mg PO DAILY 05/29/16 [History] Ferrous Sulfate 325 mg PO BIDWM #60 tablet 06/06/16 [Rx] Metolazone [Zaroxolyn] 2.5 mg PO Q48H 07/12/16 [History] Ranitidine HCl [Acid Commercial Leasing Agent] 150 mg PO BID 07/12/16 [History] Allergies/Adverse Reactions: Allergies albuterol Allergy (Verified 07/12/16 15:52) Drowsy gabapentin Allergy (Verified 07/12/16 15:52) Hallucinating Penicillins Allergy (Verified 07/12/16 15:52) Hives Sulfa (Sulfonamide Antibiotics) Allergy (Verified 07/12/16 15:52) Hives jello Adverse Reaction (Uncoded 07/12/16 15:52) Nausea Certification: Further, I certify that my clinical findings support that this patient is homebound (i.e. absences from home require considerable and taxing effort and are for medical reasons or buddhist services or infrequently or short duration when for other reasons) because: Homebound Reason: Patient requires assistance of a person or device to safely leave home, Leaving home requires considerable and taxing effort due to condition, Severity of cardiac or pulmonary status limits activity tolerance Attestation: My signature below is to certify that this patient is under my care and that I, or nurse practitioner, or a physician's optometry assistant working with me, has a face-to -face encounter with this patient.
[2016-07-17 10:15] LABS: Kappa Qnt Free Light Chains 7.76 mg/dL (0.33-1.94); Lambda Qnt Free Light Chains 4.18 mg/dL (0.57-2.63)
[2016-07-17 15:41] LABS: Alpha 2 Globulin (PEP) 0.63 g/dL (0.48-1.05); Beta Globulin (PEP) 0.59 g/dL (0.48-1.10)
[2016-07-18 11:28] LABS: IFE Reflexed NOT DONE
== END 2016-07-14 17:30 | disposition home health service (06) ==
LOC: 2NENU 15:38 → EMEROO 15:38 → SUATTDRO 19:13 → 2NENU 20:03
PROVIDERS: ADMIT Nurse Practitioner Family; ATTEND Internal Medicine

== ENCOUNTER 2016-10-13 14:45 | Inpatient (IN) ==
[~2016-10-13 14:45] MED LIST: *HR* Rocuronium Bromide 100 MG/10 ML VIAL IVC ONE
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
[2016-10-13] MEDS ORDERED: Ipratropium/Albuterol Neb 3 ML IH ONE ×2 (15:18→15:37)
[2016-10-13 16:07] LABS: Eosinophils % 0.2 %
[2016-10-13 16:09] LABS: Basophils % 0.4 %; Hematocrit 31.1 % (35.3-44.9); Immature Granulocytes % 0.7 % (0-4); Lymphocytes % 10.1 %; Mean Corpuscular HGB Conc 28.9 g/dL (31.6-35.5); Mean Corpuscular Hemoglobin 25.6 pg (28.0-33.3); Mean Corpuscular Volume 88.4 fL (83.0-100.0); Mean Platelet Volume 10.3 fL (9.4-12.4); Monocytes # 0.8 K/mcL (0.0-1.3); Monocytes % 8.6 %; Neutrophils # 7.6 K/mcL (1.6-8.9); Platelet Count 203 K/mcL (140-400); Red Blood Count 3.52 M/mcL (3.82-4.97); Red Cell Distribution Width 15.9 % (11.5-14.5)
[2016-10-13 16:24] LABS: Albumin 3.3 g/dL (3.5-5.0); Albumin/Globulin Ratio 0.9 (1.1-2.2); Bilirubin,Total 0.6 mg/dL (0.2-1.2); Calcium 9.5 mg/dL (8.6-10.8); Globulin 3.6 g/dL (2.4-3.5); Potassium 5.5 mEq/L (3.5-4.5); Total Protein 6.9 g/dL (6.0-8.3)
[2016-10-13 16:34] LABS: Hypochromasia Present (Not Present)
[2016-10-13 16:35] LABS: Platelet Estimate Normal (Normal); Polychromasia 1+ (Not Present)
[2016-10-13] MEDS ORDERED: 0.9 % Sodium Chloride 1,000 ML IVC ONE ×2 (17:00→19:35)
[2016-10-13 17:13] LABS: Bilirubin,Urine Negative (Negative); Blood,Urine Negative (Negative); Clarity,Urine Cloudy (Clear); Color,Urine Yellow (Yellow); Glucose,Urine (UA) Normal (Normal); Ketones,Urine Negative (Negative); Leukocyte Esterase,Urine Negative (Negative); Nitrite,Urine Negative (Negative); Protein,Urine Trace mg/dL (Neg-Trace); Specific Gravity,Urine 1.016 (1.010-1.025); Urobilinogen,Urine Normal (Normal)
[2016-10-13 17:15] LABS: Bacteria,Urine None Seen per hpf (None-Few); Squamous Epithelial Cell,Urine Many per lpf (None-Few); WBC,Urine 0-3 per hpf (0-3)
[2016-10-13] MEDS ORDERED: Haloperidol Lactate 5 MG/ML VIAL IVP ONE (17:15)
[2016-10-13] MEDS ORDERED: *HR* LORazepam 2 MG/ML VIAL IVP ONE (17:15)
[2016-10-13 17:18] LABS: Amphetamine Screen,Urine Negative ng/mL (Cutoff=1000); Barbiturate Screen,Urine Negative ng/mL (Cutoff=200); Benzodiazepines Screen,Urine Negative ng/mL (Cutoff=200); Cannabinoid Screen,Urine Negative ng/mL (Cutoff = 50); Cocaine Screen,Urine Negative ng/mL (Cutoff= 300); Opiate Screen,Urine Positive ng/mL (Cutoff=300); Phencyclidine Screen,Urine Negative ng/mL (Cutoff=25)
[2016-10-13 17:34] LABS: Acetaminophen < 1.0 mcg/mL (10-30); Salicylate < 5.0 mg/dL (15-30)
[2016-10-13] MEDS ORDERED: *HR* Rocuronium Bromide 50 MG/5 ML VIAL IVP ONE (17:34)
[2016-10-13] MEDS ORDERED: *HR* Etomidate 20 MG/10 ML AMPUL IVP ONE ×2 (17:34→17:41)
[2016-10-13 17:51] LABS: Thyroid Stimulating Hormone 6.502 mcIU/mL (0.350-4.840)
[2016-10-13 19:19] LABS: ABG Base Excess 9.7 mEq/L (-2.0 to 3.0); ABG HCO3 37.2 mEQ/L (21-27); ABG Oxygen Saturation 100 % (95-98); ABG PCO2 69 mmHg (35-45); ABG PH 7.34 pH Units (7.32-7.45); ABG PO2 438 mmHg (85-104); ABG TCO2 39.3 mEq/L (20-26)
[2016-10-13 19:20] LABS: Blood Gas FiO2 100 %
[2016-10-13] MEDS ORDERED: Propofol 500 MG/50 ML INFUS..BTL ONE (19:30)
[2016-10-13] MEDS ORDERED: 0.9 % Sodium Chloride 1,000 ML ONE (20:35)
[2016-10-13] MEDS ORDERED: Naloxone 0.4 MG/ML INJ IVP PRN (22:16)
[2016-10-13] MEDS ORDERED: Lacri-Lube 3.5 GM TUBE BOTH EYES PRN (22:20)
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
[2016-10-13] MEDS ORDERED: 0.9 % Sodium Chloride 1,000 ML IVC SCH (23:00)
[2016-10-13 23:08] LABS: ABG Base Excess 10.8 mEq/L (-2.0 to 3.0); ABG HCO3 38.1 mEQ/L (21-27); ABG Oxygen Saturation 95 % (95-98); ABG PCO2 69 mmHg (35-45); ABG PH 7.35 pH Units (7.32-7.45); ABG PO2 78 mmHg (85-104); ABG TCO2 40.2 mEq/L (20-26)
[2016-10-13] MEDS: Lacri-Lube 3.5 GM TUBE BOTH EYES SCH (23:08)
[2016-10-13 23:09] LABS: Blood Gas FiO2 35 %
[2016-10-14] MEDS: Lacri-Lube 3.5 GM TUBE BOTH EYES SCH ×2 (03:00→07:44)
[2016-10-14 03:20] LABS: Eosinophils % 0.6 %; Hemoglobin 7.5 g/dL (11.5-15.4); Mean Corpuscular Volume 88.5 fL (83.0-100.0); Platelet Count 164 K/mcL (140-400)
[2016-10-14 03:22] LABS: Basophils % 0.3 %; Hematocrit 26.1 % (35.3-44.9); Immature Granulocytes % 0.3 % (0-4); Immature Platelets 3.4 % (1.1-6.1); Lymphocytes # 0.7 K/mcL (0.6-4.6); Lymphocytes % 11.2 %; Mean Corpuscular HGB Conc 28.7 g/dL (31.6-35.5); Mean Corpuscular Hemoglobin 25.4 pg (28.0-33.3); Mean Platelet Volume 10.3 fL (9.4-12.4); Monocytes # 0.7 K/mcL (0.0-1.3); Monocytes % 10.4 %; Red Blood Count 2.95 M/mcL (3.82-4.97); Segmented Neutrophils % 77.2 %
[2016-10-14 03:29] LABS: Neutrophils # 4.9 K/mcL (1.6-8.9)
[2016-10-14 03:34] LABS: Calcium 8.4 mg/dL (8.6-10.8); Magnesium 1.9 mg/dL (1.6-2.6); Potassium 4.6 mEq/L (3.5-4.5)
[2016-10-14 03:41] LABS: Platelet Estimate Normal (Normal); Polychromasia 1+ (Not Present)
[2016-10-14 04:43] LABS: ABG Base Excess 13.8 mEq/L (-2.0 to 3.0); ABG HCO3 40.3 mEQ/L (21-27); ABG Oxygen Saturation 97 % (95-98); ABG PCO2 65 mmHg (35-45); ABG PO2 86 mmHg (85-104); ABG TCO2 42.3 mEq/L (20-26)
[2016-10-14 04:44] LABS: Blood Gas FiO2 35 %
[2016-10-14] MEDS ORDERED: Famotidine 20 MG/2 ML VIAL IVP SCH (06:00)
[2016-10-14] MEDS ORDERED: Furosemide 20 MG/2 ML VIAL IVP ONE (06:12)
[2016-10-14 06:40] LABS: Hematocrit 26.6 % (35.3-44.9); Hemoglobin 7.8 g/dL (11.5-15.4)
[2016-10-14 06:44] LABS: INR 1.2; Prothrombin Time 13.1 Seconds (9.4-12.1)
[2016-10-14 06:47] LABS: Activated Partial Thrombo Time 25.2 Seconds (26.0-36.0)
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
[2016-10-14] MEDS: Chlorhexidine Rinse 15 ML MOUTHWASH MM SCH ×2 (07:45→20:33)
[2016-10-14] MEDS ORDERED: Furosemide 40 MG/4 ML VIAL IVP ONE (08:42)
[2016-10-14] MEDS ORDERED: *HR* FentaNYL (PF) 100 MCG/2 ML VIAL IVP PRN (10:09)
[2016-10-14] MEDS ORDERED: *HR* Metoprolol 5 MG/5 ML VIAL IVP PRN (10:12)
[2016-10-14] MEDS: predniSONE 20 MG TABLET PO SCH (10:26)
[2016-10-14] MEDS: Ipratropium/Albuterol Neb 3 ML IH SCH ×4 (11:05→23:48)
[2016-10-14] MEDS: *HR* Heparin 5,000 UNIT/ML VIAL SQ SCH ×2 (12:18→17:13)
--- NOTE | 2016-10-14 13:38 | Electrocardiograph Report ---
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
[2016-10-14] MEDS: *HR* Amiodarone 200 MG TABLET PO SCH (20:33)
[2016-10-15] MEDS: Ipratropium/Albuterol Neb 3 ML IH SCH ×5 (04:26→19:44)
[2016-10-15 05:01] LABS: ABG Base Excess 14.4 mEq/L (-2.0 to 3.0); ABG HCO3 39.8 mEQ/L (21-27); ABG Oxygen Saturation 91 % (95-98); ABG PCO2 56 mmHg (35-45); ABG PH 7.46 pH Units (7.32-7.45); ABG PO2 57 mmHg (85-104); ABG TCO2 41.5 mEq/L (20-26)
[2016-10-15 05:04] LABS: Blood Gas FiO2 30 %
[2016-10-15] MEDS: *HR* Heparin 5,000 UNIT/ML VIAL SQ SCH ×2 (05:41→17:13)
[2016-10-15 05:53] LABS: Hematocrit 24.3 % (35.3-44.9); Hemoglobin 7.1 g/dL (11.5-15.4); Immature Granulocytes % 0.4 % (0-4); Lymphocytes # 0.5 K/mcL (0.6-4.6); Lymphocytes % 8.9 %; Mean Corpuscular HGB Conc 29.2 g/dL (31.6-35.5); Mean Corpuscular Hemoglobin 25.5 pg (28.0-33.3); Mean Corpuscular Volume 87.4 fL (83.0-100.0); Mean Platelet Volume 10.4 fL (9.4-12.4); Monocytes # 0.5 K/mcL (0.0-1.3); Monocytes % 9.4 %; Neutrophils # 4.5 K/mcL (1.6-8.9); Platelet Count 140 K/mcL (140-400); Red Blood Count 2.78 M/mcL (3.82-4.97); Red Cell Distribution Width 16.1 % (11.5-14.5); Segmented Neutrophils % 81.3 %
[2016-10-15 06:06] LABS: Calcium 8.3 mg/dL (8.6-10.8); Potassium 2.9 mEq/L (3.5-4.5)
[2016-10-15] MEDS ORDERED: Potassium Chloride Elixir 20 MEQ/15 ML UDC PO ONE (06:56)
[2016-10-15] MEDS ORDERED: Famotidine 20 MG/2 ML VIAL IVP SCH (08:00)
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
[2016-10-15] MEDS: *HR* Amiodarone 200 MG TABLET PO SCH ×2 (08:16→21:11)
[2016-10-15] MEDS: Chlorhexidine Rinse 15 ML MOUTHWASH MM SCH (08:17)
[2016-10-15] MEDS: Pantoprazole 40 MG VIAL IVP SCH (08:17)
[2016-10-15] MEDS: predniSONE 20 MG TABLET PO SCH (08:18)
[2016-10-15] MEDS: FLUoxetine 20 MG CAPSULE PO SCH (08:24)
[2016-10-15] MEDS ORDERED: Furosemide 40 MG/4 ML VIAL IVP ONE (08:58)
[2016-10-15] MEDS ORDERED: (Umeclidinium Bromide [Incruse Ellipta] 1 PUFF) IH SCH (09:00)
[2016-10-15] MEDS: Budesonide/Formoterol 160/4.5 MDI IH SCH ×2 (09:29→19:44)
[2016-10-16] MEDS: Ipratropium/Albuterol Neb 3 ML IH SCH ×7 (00:16→23:57)
[2016-10-16 04:41] LABS: Hematocrit 26.7 % (35.3-44.9); Hemoglobin 7.7 g/dL (11.5-15.4); Lymphocytes % 8.7 %; Mean Corpuscular HGB Conc 28.8 g/dL (31.6-35.5); Mean Corpuscular Hemoglobin 25.5 pg (28.0-33.3); Mean Corpuscular Volume 88.4 fL (83.0-100.0); Red Blood Count 3.02 M/mcL (3.82-4.97); Red Cell Distribution Width 16.2 % (11.5-14.5)
[2016-10-16 04:43] LABS: Basophils % 0.2 %; Eosinophils % 0.2 %; Immature Granulocytes % 0.6 % (0-4); Lymphocytes # 0.4 K/mcL (0.6-4.6); Mean Platelet Volume 10.4 fL (9.4-12.4); Monocytes # 0.6 K/mcL (0.0-1.3); Monocytes % 10.8 %; Platelet Count 153 K/mcL (140-400); Segmented Neutrophils % 79.5 %
[2016-10-16 04:48] LABS: Magnesium 2.2 mg/dL (1.6-2.6); Potassium 3.9 mEq/L (3.5-4.5)
[2016-10-16 05:02] LABS: Neutrophils # 4.1 K/mcL (1.6-8.9)
[2016-10-16] MEDS: *HR* Heparin 5,000 UNIT/ML VIAL SQ SCH ×2 (06:04→17:55)
[2016-10-16 07:30] LABS: Anisocytosis 1+ (Not Present); Platelet Estimate Normal (Normal); Polychromasia 1+ (Not Present)
[2016-10-16] MEDS: Budesonide/Formoterol 160/4.5 MDI IH SCH ×2 (07:36→20:04)
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
[2016-10-16] MEDS ORDERED: Folic Acid 1 MG TABLET PO SCH (09:00)
[2016-10-16] MEDS ORDERED: Furosemide 40 MG TABLET PO SCH (09:00)
[2016-10-16] MEDS ORDERED: Potassium Chloride Elixir 20 MEQ/15 ML UDC PO SCH ×2 (09:00→18:00)
[2016-10-16] MEDS: *HR* Amiodarone 200 MG TABLET PO SCH ×2 (09:06→22:08)
[2016-10-16] MEDS: predniSONE 20 MG TABLET PO SCH (09:06)
[2016-10-16] MEDS: FLUoxetine 20 MG CAPSULE PO SCH (09:07)
[2016-10-16] MEDS: Pantoprazole 40 MG VIAL IVP SCH (09:07)
[2016-10-16] MEDS ORDERED: Naloxone 0.4 MG/ML INJ IVP PRN (12:30)
[2016-10-16] MEDS: Furosemide 40 MG TABLET PO SCH (17:56)
[2016-10-16] MEDS ORDERED: rOPINIRole 1 MG TABLET PO SCH (21:00)
[2016-10-16] MEDS: rOPINIRole 1 MG TABLET PO SCH (22:09)
[2016-10-17] MEDS: Ipratropium/Albuterol Neb 3 ML IH SCH ×6 (03:51→23:16)
[2016-10-17] MEDS: *HR* Heparin 5,000 UNIT/ML VIAL SQ SCH ×2 (05:43→17:25)
[2016-10-17 05:56] LABS: Eosinophils % 0.3 %; Hematocrit 28.4 % (35.3-44.9); Hemoglobin 8.1 g/dL (11.5-15.4); Immature Granulocytes % 0.7 % (0-4); Lymphocytes # 0.5 K/mcL (0.6-4.6); Lymphocytes % 7.7 %; Mean Corpuscular HGB Conc 28.5 g/dL (31.6-35.5); Mean Corpuscular Hemoglobin 25.2 pg (28.0-33.3); Mean Corpuscular Volume 88.5 fL (83.0-100.0); Mean Platelet Volume 9.8 fL (9.4-12.4); Monocytes # 0.6 K/mcL (0.0-1.3); Monocytes % 8.6 %; Neutrophils # 5.5 K/mcL (1.6-8.9); Platelet Count 177 K/mcL (140-400); Red Blood Count 3.21 M/mcL (3.82-4.97); Red Cell Distribution Width 15.9 % (11.5-14.5); Segmented Neutrophils % 82.7 %
[2016-10-17 06:07] LABS: Calcium 9.2 mg/dL (8.6-10.8)
[2016-10-17 06:13] LABS: Hypochromasia Present (Not Present); Platelet Estimate Normal (Normal)
[2016-10-17] MEDS: Budesonide/Formoterol 160/4.5 MDI IH SCH ×2 (07:50→19:57)
[2016-10-17] MEDS: Furosemide 40 MG TABLET PO SCH (08:58)
[2016-10-17] MEDS: FLUoxetine 20 MG CAPSULE PO SCH (08:58)
[2016-10-17] MEDS: *HR* Amiodarone 200 MG TABLET PO SCH ×2 (08:58→20:46)
[2016-10-17] MEDS: predniSONE 20 MG TABLET PO SCH (08:58)
[2016-10-17] MEDS: Folic Acid 1 MG TABLET PO SCH (08:59)
[2016-10-17] MEDS ORDERED: Pantoprazole 40 MG VIAL IVP SCH (09:00)
--- NOTE | 2016-10-17 13:04 | Pulmonology Progress Note ---
Date of Encounter: 10/17/16 Time of Encounter: 13:02 Assessment and Plan (1) Acute respiratory failure with hypoxia and hypercapnia Current Visit: Yes Status: Acute (2) Encephalopathy Current Visit: Yes Status: Acute (3) History of tobacco use Current Visit: Yes Status: Acute (4) Acute diastolic (congestive) heart failure Current Visit: Yes Status: Acute (5) Abnormal CT scan, chest Current Visit: Yes Status: Acute (6) Acute exacerbation of chronic obstructive airways disease Current Visit: Yes Status: Acute (7) SON (acute kidney injury) Current Visit: Yes Status: Acute Subjective Principal diagnosis: Acute Delerium, CHF exacerbation Interval history: No acute overnight events. The patient states that her breathing has significantly improved since admission. She reports minimal orthopnea. Her goal is to increase her out of bed activities today. No fever/chills. She slept nicely last night. All other systems reviewed and otherwise negative. Objective PUL Vital signs: Last Vital Signs Temp 97.6 F 10/17/16 11:00 Pulse 54 10/17/16 11:40 Resp 18 10/17/16 11:05 BP 102/46 10/17/16 11:00 Pulse Ox 95 10/17/16 11:05 General: no acute distress Eyes: nonicteric ENT: oropharynx moist Neck: supple, no lymphadenopathy Lungs: Clear to auscultation bilaterally Cardiovascular: regular rate and rhythm Gastrointestinal: normoactive bowel sounds, soft, non-tender, non-distended Integumentary: normal Extremities: no cyanosis, no edema Musculoskeletal: no deformities Neuro: normal mental status, non-focal exam Psych: mood appropriate, affect normal Results - Laboratory Findings CBC and BMP: 10/17/16 05:43 10/17/16 05:43 ABG ABG pH 7.46 pH Units (7.32-7.45) H 10/15/16 04:54 ABG pCO2 56 mmHg (35-45) H 10/15/16 04:54 ABG pO2 57 mmHg (85-104) L 10/15/16 04:54 ABG O2 Saturation 91 % (95-98) L 10/15/16 04:54 PT/INR, D-dimer PT 13.1 Seconds (9.4-12.1) H 10/14/16 06:31 Abnormal lab findings: Abnormal lab results RBC 3.21 M/mcL (3.82-4.97) L 10/17/16 05:43 Hgb 8.1 g/dL (11.5-15.4) L 10/17/16 05:43 Hct 28.4 % (35.3-44.9) L 10/17/16 05:43 MCH 25.2 pg (28.0-33.3) L 10/17/16 05:43 MCHC 28.5 g/dL (31.6-35.5) L 10/17/16 05:43 RDW 15.9 % (11.5-14.5) H 10/17/16 05:43 Lymphocytes # 0.5 K/mcL (0.6-4.6) L 10/17/16 05:43 Polychromasia 1+ (Not Present) A 10/16/16 04:10 Hypochromasia Present (Not Present) A 10/17/16 05:43 Anisocytosis 1+ (Not Present) A 10/16/16 04:10 PT 13.1 Seconds (9.4-12.1) H 10/14/16 06:31 APTT 25.2 Seconds (26.0-36.0) L 10/14/16 06:31 ABG pH 7.46 pH Units (7.32-7.45) H 10/15/16 04:54 ABG pCO2 56 mmHg (35-45) H 10/15/16 04:54 ABG pO2 57 mmHg (85-104) L 10/15/16 04:54 ABG HCO3 39.8 mEQ/L (21-27) H 10/15/16 04:54 ABG Total CO2 41.5 mEq/L (20-26) H 10/15/16 04:54 ABG O2 Saturation 91 % (95-98) L 10/15/16 04:54 ABG Base Excess 14.4 mEq/L (-2.0 to 3.0) H 10/15/16 04:54 Carbon Dioxide 37 mEq/L (19-29) H 10/17/16 05:43 BUN 32 mg/dL (7-20) H 10/17/16 05:43 Creatinine 1.24 mg/dL (0.57-1.11) H 10/17/16 05:43 Est GFR ( Amer) 51 (> 60) L 10/17/16 05:43 Est GFR (Non-Af Amer) 42 (> 60) L 10/17/16 05:43 Glucose 116 mg/dL (70-99) H 10/17/16 05:43 POC Glucose 242 (58-89) H 10/16/16 19:03 Calculated Osmolality 308 (280-300) H 10/17/16 05:43 B-Natriuretic Peptide 1410 pg/mL (0-100) H 10/14/16 03:00 Albumin 3.3 g/dL (3.5-5.0) L 10/13/16 15:48 Globulin 3.6 g/dL (2.4-3.5) H 10/13/16 15:48 Albumin/Globulin Ratio 0.9 (1.1-2.2) L 10/13/16 15:48 TSH 6.502 mcIU/mL (0.350-4.840) H 10/13/16 17:09 Urine Clarity Cloudy (Clear) A 10/13/16 17:04 Urine Microscopic RBC 3-5 per hpf (0-3) H 10/13/16 17:04 Ur Squamous Epith Cells Many per lpf (None-Few) H 10/13/16 17:04 Salicylates < 5.0 mg/dL (15-30) L 10/13/16 17:09 Urine Opiates Screen Positive ng/mL (Xetmtg=600) H 10/13/16 17:04 Acetaminophen < 1.0 mcg/mL (10-30) L 10/13/16 17:09 - Clinical Findings Intake & Output: Intake & Output 10/16/16 10/17/16 10/17/16 23:59 07:59 15:59 Intake Total 610 / 610 440 / 440 360 / 360 Output Total 150 / 150 Balance 460 / 460 440 / 440 360 / 360 - VTE Documentation of Mechanical Device: Intermittent pneumatic compression device Consult Discharge Plan - Plan Referrals: NO,PCP [Primary Care Provider] -
[2016-10-17] MEDS: rOPINIRole 1 MG TABLET PO SCH (20:45)
[2016-10-18] MEDS: Ipratropium/Albuterol Neb 3 ML IH SCH ×6 (03:09→23:23)
[2016-10-18] MEDS: *HR* Heparin 5,000 UNIT/ML VIAL SQ SCH ×2 (05:50→18:13)
[2016-10-18 05:54] LABS: Eosinophils % 0.1 %; Hematocrit 29.4 % (35.3-44.9); Hemoglobin 8.4 g/dL (11.5-15.4); Immature Granulocytes % 0.6 % (0-4); Lymphocytes # 0.5 K/mcL (0.6-4.6); Lymphocytes % 7.4 %; Mean Corpuscular HGB Conc 28.6 g/dL (31.6-35.5); Mean Corpuscular Hemoglobin 25.2 pg (28.0-33.3); Mean Corpuscular Volume 88.3 fL (83.0-100.0); Mean Platelet Volume 11.7 fL (9.4-12.4); Monocytes # 0.5 K/mcL (0.0-1.3); Monocytes % 6.6 %; Platelet Count 158 K/mcL (140-400); Red Blood Count 3.33 M/mcL (3.82-4.97); Red Cell Distribution Width 15.8 % (11.5-14.5); Segmented Neutrophils % 85.3 %
[2016-10-18 06:20] LABS: Neutrophils # 6.1 K/mcL (1.6-8.9)
[2016-10-18 06:21] LABS: Hypochromasia Present (Not Present); Platelet Estimate Normal (Normal)
[2016-10-18 06:40] LABS: Calcium 9.3 mg/dL (8.6-10.8)
[2016-10-18 06:41] LABS: Potassium 4.2 mEq/L (3.5-4.5)
[2016-10-18] MEDS: Budesonide/Formoterol 160/4.5 MDI IH SCH ×2 (07:55→20:07)
[2016-10-18] MEDS: *HR* Amiodarone 200 MG TABLET PO SCH (08:49)
[2016-10-18] MEDS: Folic Acid 1 MG TABLET PO SCH (08:50)
[2016-10-18] MEDS: predniSONE 20 MG TABLET PO SCH (08:51)
[2016-10-18] MEDS: FLUoxetine 20 MG CAPSULE PO SCH (08:51)
[2016-10-18] MEDS: Furosemide 40 MG TABLET PO SCH (08:52)
--- NOTE | 2016-10-18 15:11 | Internal Med Progress Note ---
Date of Encounter: 10/18/16 Time of Encounter: 09:20 - Assessment and plan (1) Pulmonary edema Current Visit: Yes Status: Resolved Assessment and plan: Patient was noted to have respiratory failure, due to pulmonary edema, likely cardiogenic, soon after admission, has been intubated and successfully extubated , responded well to IV diuresis. Continue by mouth Lasix, supplemental oxygen and supportive care. Qualifiers: Chronicity: acute Qualified Code(s): J81.0 - Acute pulmonary edema (2) Acute encephalopathy Current Visit: Yes Status: Resolved Assessment and plan: Currently at baseline mental status. Noted to have had visual hallucinations at the time of admission, presumed to be multifactorial-recent traumatic brain injury, hypoxemia/pulmonary edema, acute COPD. (3) Acute exacerbation of chronic obstructive airways disease Current Visit: Yes Status: Acute Assessment and plan: Improving clinically. Completed a short course of IV Levaquin and completed oral tapering dose of steroids. Continue when necessary bronchodilators, inhaled corticosteroids and supplemental oxygen. Noted to be on home oxygen. (4) Wmncu-[id number]-[id number] kidney injury Current Visit: Yes Status: Acute Assessment and plan: Patient is noted to have documented chronic kidney disease stage III and does follow with nephrology as an outpatient. Previous records reviewed. Serum creatinine is noted to be improving, currently at baseline. Continue to monitor, avoid new nephrotoxic agents. Qualifiers: Acute renal failure type: unspecified Chronic kidney disease stage: stage 3 (moderate) Qualified Code(s): N17.9 - Acute kidney failure, unspecified; N18.3 - Chronic kidney disease, stage 3 (moderate) (5) Acute and chronic respiratory failure Current Visit: Yes Status: Resolved Assessment and plan: Status post intubation and extubation. Due to hypoxemia/hypercapnia/ encephalopathy due to pulmonary edema, acute COPD, possible underlying OHS, recent traumatic brain injury. Currently stable. Qualifiers: Respiratory failure complication: hypoxia and hypercapnia Qualified Code(s) : J96.21 - Acute and chronic respiratory failure with hypoxia; J96.22 - Acute and chronic respiratory failure with hypercapnia (6) Chronic kidney disease, stage 3 Current Visit: Yes Status: Chronic (7) Atrial fibrillation Current Visit: Yes Status: Chronic Assessment and plan: Rate controlled with episodes of resting bradycardia. Reviewed previous notes including cardiology evaluation from May 2016, at which time cardiology recommended discontinuing amiodarone and to continue low-dose beta lauryn. Patient is known to have episodes of hypotension and bradycardia. We will hold amiodarone at this time and continue low-dose metoprolol. Patient is taken off chronic anticoagulation due to history of GI bleed, rectus sheath hematoma, recent intracranial bleed. Qualifiers: Atrial fibrillation type: chronic Qualified Code(s): I48.2 - Chronic atrial fibrillation (8) H/O aortic valve replacement Current Visit: Yes Status: Chronic Assessment and plan: Bioprosthetic valve. No anticoagulation required. (9) History of implantable cardiac defibrillator (ICD) Current Visit: Yes Status: Chronic (10) Ischemic cardiomyopathy Current Visit: Yes Status: Chronic Assessment and plan: Currently stable. Continue oral diuretics, beta lauryn. Monitor heart rate and blood pressure closely. (11) Hyperkalemia Current Visit: Yes Status: Resolved (12) RUMA (iron deficiency anemia) Current Visit: Yes Status: Chronic Qualifiers: Iron deficiency anemia type: unspecified iron deficiency Qualified Code(s) : D50.9 - Iron deficiency anemia, unspecified - Subjective Interval history: Reports feeling significantly better since admission. No chest pain, cough, shortness of breath. Tolerates diet, improved appetite. - Constitutional Vitals: Temp Pulse Resp BP Pulse Ox 97.6 F 51 16 105/66 93 10/18/16 11:53 10/18/16 11:53 10/18/16 11:53 10/18/16 11:53 10/18/16 11:53 General appearance: Present: A&O X 3, answers questions appropriately - Respiratory Respiratory exam: Present: CTAB, rales (Bilateral coarse breath sounds and faint crackles at bilateral bases). Absent: accessory muscle use, rhonchi, wheezes - Cardiovascular Cardiovascular exam: Present: RRR, +S1, +S2. Absent: diastolic murmur, gallop, rubs, systolic murmur - GI/Abdominal GI/Abdominal exam: Present: normal bowel sounds, soft, no peritoneal signs. Absent: distended, tenderness - Extremities Exam Extremities exam: Present: full ROM, warm, radial pulses palpable and symetrical. Absent: calf tenderness, cyanotic, pedal edema - Neurological Exam Neurological exam: Present: CN II-XII intact, oriented X3, no focal deficits. Absent: pronater drift, facial droop, speech deficit Internal Medicine: Result - Labs CBC & Chem 7: 10/18/16 04:56 10/18/16 04:56 Labs: Short CBC 10/18/16 Range/Units 04:56 WBC 7.1 (4.3-11.1) K/mcL Hgb 8.4 L (11.5-15.4) g/dL Hct 29.4 L (35.3-44.9) % Plt Count 158 (140-400) K/mcL Neutrophils # 6.1 (1.6-8.9) K/mcL BMP 10/18/16 04:56 Sodium 144 Potassium 4.2 Chloride 104 Carbon Dioxide 28 BUN 30 H Creatinine 1.31 H Glucose 114 H Calcium 9.3 - ABG Interpretation ABG results: ABG ABG pH 7.46 pH Units (7.32-7.45) H 10/15/16 04:54 ABG pCO2 56 mmHg (35-45) H 10/15/16 04:54 ABG pO2 57 mmHg (85-104) L 10/15/16 04:54 ABG O2 Saturation 91 % (95-98) L 10/15/16 04:54 PT/INR, D-dimer PT 13.1 Seconds (9.4-12.1) H 10/14/16 06:31 - VTE Documentation of Mechanical Device: Intermittent pneumatic compression device Consult Discharge Plan - Plan Referrals: NO,PCP [Primary Care Provider] -
[2016-10-18] MEDS: rOPINIRole 1 MG TABLET PO SCH (21:49)
[2016-10-19] MEDS: Ipratropium/Albuterol Neb 3 ML IH SCH ×3 (04:20→11:23)
[2016-10-19 05:05] LABS: Eosinophils % 0.4 %; Hematocrit 29.5 % (35.3-44.9); Hemoglobin 8.2 g/dL (11.5-15.4); Immature Granulocytes % 0.4 % (0-4); Lymphocytes # 0.6 K/mcL (0.6-4.6); Lymphocytes % 10.5 %; Mean Corpuscular HGB Conc 27.8 g/dL (31.6-35.5); Mean Corpuscular Hemoglobin 24.8 pg (28.0-33.3); Mean Corpuscular Volume 89.1 fL (83.0-100.0); Mean Platelet Volume 10.5 fL (9.4-12.4); Monocytes # 0.4 K/mcL (0.0-1.3); Monocytes % 7.9 %; Neutrophils # 4.3 K/mcL (1.6-8.9); Platelet Count 174 K/mcL (140-400); Red Blood Count 3.31 M/mcL (3.82-4.97); Red Cell Distribution Width 15.6 % (11.5-14.5); Segmented Neutrophils % 80.8 %
[2016-10-19 05:24] LABS: Calcium 9.3 mg/dL (8.6-10.8)
[2016-10-19] MEDS: *HR* Heparin 5,000 UNIT/ML VIAL SQ SCH (05:40)
[2016-10-19 05:43] LABS: Hypochromasia Present (Not Present); Platelet Estimate Normal (Normal)
[2016-10-19] MEDS: Budesonide/Formoterol 160/4.5 MDI IH SCH (07:45)
[2016-10-19] MEDS: Furosemide 40 MG TABLET PO SCH (08:06)
[2016-10-19] MEDS: Folic Acid 1 MG TABLET PO SCH (08:06)
[2016-10-19] MEDS: FLUoxetine 20 MG CAPSULE PO SCH (08:07)
--- NOTE | 2016-10-19 10:50 | Discharge Summary ---
Date of Encounter: 10/19/16 Time of Encounter: 10:46 - Discharge Diagnosis (1) Pulmonary edema Priority: Primary Status: Resolved Qualifiers: Chronicity: acute Qualified Code(s): J81.0 - Acute pulmonary edema (2) Acute encephalopathy Priority: Primary Status: Resolved (3) Acute exacerbation of chronic obstructive airways disease Priority: Primary Status: Acute (4) [id number] kidney injury Priority: Primary Status: Acute Qualifiers: Acute renal failure type: unspecified Chronic kidney disease stage: stage 3 (moderate) Qualified Code(s): N17.9 - Acute kidney failure, unspecified; N18.3 - Chronic kidney disease, stage 3 (moderate) (5) Acute and chronic respiratory failure Priority: Primary Status: Resolved Qualifiers: Respiratory failure complication: hypoxia and hypercapnia Qualified Code(s) : J96.21 - Acute and chronic respiratory failure with hypoxia; J96.22 - Acute and chronic respiratory failure with hypercapnia (6) Chronic kidney disease, stage 3 Priority: Secondary Status: Chronic (7) Atrial fibrillation Priority: Secondary Status: Chronic Qualifiers: Atrial fibrillation type: chronic Qualified Code(s): I48.2 - Chronic atrial fibrillation (8) H/O aortic valve replacement Priority: Secondary Status: Chronic (9) History of implantable cardiac defibrillator (ICD) Priority: Secondary Status: Chronic (10) Ischemic cardiomyopathy Priority: Secondary Status: Chronic (11) Hyperkalemia Priority: Primary Status: Resolved (12) RUMA (iron deficiency anemia) Priority: Secondary Status: Chronic Qualifiers: Iron deficiency anemia type: unspecified iron deficiency Qualified Code(s) : D50.9 - Iron deficiency anemia, unspecified - Discharge Medications Prescriptions: Furosemide [Lasix] 40 mg PO DAILY #30 tablet Home Medications: Budesonide/Formoterol 160/4.5 [Symbicort] 2 puff IH BID 01/30/15 [History] FLUoxetine HCl [Prozac] 20 mg PO BID 01/30/15 [History] Oxycodone HCl/Acetaminophen [Percocet 10-325 mg Tablet] 1 tab PO Q6H PRN [History] Allopurinol [Zyloprim 300 MG] 300 mg PO DAILY 01/12/16 [History] Ropinirole HCl [Requip] 2 mg PO HS 01/12/16 [History] Calcium Carbonate [Calcium] 1,500 mg PO BID 04/22/16 [History] Ipratropium/Albuterol Neb [Duoneb] 3 ml IH Q6HR PRN 04/22/16 [History] Levothyroxine [Synthroid] 50 mcg PO DAILY 04/22/16 [History] Oxygen 2.5 l NS CONT 04/22/16 [History] Metoprolol [Lopressor] 12.5 mg PO BID #60 tablet 04/27/16 [Rx] Folic Acid 1 mg PO DAILY 05/28/16 [History] Ferrous Sulfate 325 mg PO BIDWM #60 tablet 06/06/16 [Rx] Ranitidine HCl [Acid Qi Specialist] 150 mg PO BID 07/12/16 [History] Albuterol Sulfate [Ventolin Hfa] 1 - 2 puff IH Q4-6H PRN 10/14/16 [History] Potassium Chloride [K-Tab ER] 40 meq PO QPM 10/14/16 [History] Potassium Chloride [K-Tab ER] 60 meq PO QAM 10/14/16 [History] Umeclidinium [place] [Incruse Ellipta] 1 puff IH DAILY 10/14/16 [History] Furosemide [Lasix] 40 mg PO DAILY #30 tablet 10/19/16 [Rx] Allergies/Adverse Reactions: Allergies albuterol Allergy (Verified 10/13/16 14:47) Drowsy gabapentin Allergy (Verified 10/13/16 14:47) Hallucinating Penicillins Allergy (Verified 10/13/16 14:47) Hives Sulfa (Sulfonamide Antibiotics) Allergy (Verified 10/13/16 14:47) Hives jello Adverse Reaction (Uncoded 10/13/16 14:47) Nausea Date of admission: 10/13/16 20:38 Primary care physician: PCP NO Discharging clinician: Shauna Llanes Anticipated date of discharge: 10/19/16 - Patient Status Disposition: Home Health Service Condition: Good Functional capacity at discharge: independent ambulation Overall status at discharge: patient is progressing back to baseline - Discharge Instructions Follow Up With: Francisco Melgar Jr [Non-Partnered Physician] - (Patient states he is her PCP and will call and make a follow up appointment with him on Friday. RN aware.) Additional Instructions: F/up with PCP in 1-2 weeks F/up with [facility]- as scheduled - Diet and Activity Activity: as per physical therapy, wear oxygen at all times Diet: low fat, low cholesterol, low salt diet Hospital course: Ms. Higginbotham is a 76 year old female with multiple medical problems and several hospitalizations in the last few months for various reasons, was initially brought in with complaints of altered mental status and visual hallucinations. There was documented bradycardia and hypotension by EMS and en route to the emergency room. She was started on IV hydration initially and later was noted to have developed respiratory distress while in the ER and went into respiratory failure and she was subsequently intubated and transferred to ICU. She was treated for acute exacerbation of COPD, acute diastolic CHF, acute encephalopathy thought to be related to underlying COPD/OHS/recent traumatic brain injury with intracranial bleed. She completed a course of empiric IV antibiotics for possible acute bronchitis, IV steroids and IV Lasix and she was able to be successfully extubated and saturated well on room air. She was then transferred to medical floor. Patient was noted to be alert and oriented, tolerated oral diet and saturated well on nasal cannula while on medical floor. She was noted to have resting bradycardia with heart rate in 50s, asymptomatic along with low normal blood pressure. Her medication reconciliation from ICU included oral amiodarone, however review of previous records show that cardiology recommended to discontinue this medication during her previous hospitalization. Given her hypotension and bradycardia, this has been held and she was continued on low- dose of metoprolol and oral Lasix and she did well. She is currently medically stable for discharge with close outpatient follow-up by cardiology, nephrology and primary care provider. Patient is noted to have history of atrial fibrillation and she is only on low- dose metoprolol. Anticoagulation is contraindicated at this time due to history of GI bleed, rectus sheath hematoma, recent intracranial bleed. - Time Spent with Patient Total time spent providing and/or coordinating discharge services: Greater than 30 minutes (45 min) - Constitutional Vitals: Temp Pulse Resp BP Pulse Ox 97.8 F 52 18 91/44 95 10/19/16 07:21 10/19/16 07:21 10/19/16 07:47 10/19/16 07:21 10/19/16 07:47 General appearance: Present: A&O X 3, answers questions appropriately - Cardiovascular Cardiovascular exam: Present: RRR, +S1, +S2, systolic murmur. Absent: diastolic murmur, gallop, rubs - VTE Documentation of Mechanical Device: Intermittent pneumatic compression device
--- NOTE | 2016-10-19 10:53 | Physician Discharge Referral ---
Home Health/Hosp Referral Info Transfer to: Home Health Attending Provider: Shauna Llanes Provider in Charge Post Discharge: PCP - Diagnosis (1) Pulmonary edema Priority: Primary Status: Resolved (2) Acute encephalopathy Priority: Primary Status: Resolved (3) Acute exacerbation of chronic obstructive airways disease Priority: Primary Status: Acute (4) [id number] kidney injury Priority: Primary Status: Acute (5) Acute and chronic respiratory failure Priority: Primary Status: Resolved (6) Chronic kidney disease, stage 3 Priority: Secondary Status: Chronic (7) Atrial fibrillation Priority: Secondary Status: Chronic (8) H/O aortic valve replacement Priority: Secondary Status: Chronic (9) History of implantable cardiac defibrillator (ICD) Priority: Secondary Status: Chronic (10) Ischemic cardiomyopathy Priority: Secondary Status: Chronic (11) Hyperkalemia Priority: Primary Status: Resolved (12) RUMA (iron deficiency anemia) Priority: Secondary Status: Chronic - Respiratory Orders Oxygen / L per min (2L/min via [place]) Smoking Cessation: Smoking cessation has been advised. For more information, call the [place] Tobacco Quit Line at 2-776-ZXZU-NOW. - Diet/Nutrition Diet/Nutrition Orders: No Added Salt (SALUD), Cardiac - Activity Activity Orders: Ambulate - Services Needed Following services are medically necessary services: Nursing, Physical Therapy, Occupational Therapy, Speech Therapy - Transfer Medications Prescriptions: Furosemide [Lasix] 40 mg PO DAILY #30 tablet Home Medications: Budesonide/Formoterol 160/4.5 [Symbicort] 2 puff IH BID 01/30/15 [History] FLUoxetine HCl [Prozac] 20 mg PO BID 01/30/15 [History] Oxycodone HCl/Acetaminophen [Percocet 10-325 mg Tablet] 1 tab PO Q6H PRN [History] Allopurinol [Zyloprim 300 MG] 300 mg PO DAILY 01/12/16 [History] Ropinirole HCl [Requip] 2 mg PO HS 01/12/16 [History] Calcium Carbonate [Calcium] 1,500 mg PO BID 04/22/16 [History] Ipratropium/Albuterol Neb [Duoneb] 3 ml IH Q6HR PRN 04/22/16 [History] Levothyroxine [Synthroid] 50 mcg PO DAILY 04/22/16 [History] Oxygen 2.5 l NS CONT 04/22/16 [History] Metoprolol [Lopressor] 12.5 mg PO BID #60 tablet 04/27/16 [Rx] Folic Acid 1 mg PO DAILY 05/28/16 [History] Ferrous Sulfate 325 mg PO BIDWM #60 tablet 06/06/16 [Rx] Ranitidine HCl [Acid Pantograph Ii Engraver] 150 mg PO BID 07/12/16 [History] Albuterol Sulfate [Ventolin Hfa] 1 - 2 puff IH Q4-6H PRN 10/14/16 [History] Potassium Chloride [K-Tab ER] 40 meq PO QPM 10/14/16 [History] Potassium Chloride [K-Tab ER] 60 meq PO QAM 10/14/16 [History] Umeclidinium Lafe [Incruse Ellipta] 1 puff IH DAILY 10/14/16 [History] Furosemide [Lasix] 40 mg PO DAILY #30 tablet 10/19/16 [Rx] Allergies/Adverse Reactions: Allergies albuterol Allergy (Verified 10/13/16 14:47) Drowsy gabapentin Allergy (Verified 10/13/16 14:47) Hallucinating Penicillins Allergy (Verified 10/13/16 14:47) Hives Sulfa (Sulfonamide Antibiotics) Allergy (Verified 10/13/16 14:47) Hives jello Adverse Reaction (Uncoded 10/13/16 14:47) Nausea Certification: Further, I certify that my clinical findings support that this patient is homebound (i.e. absences from home require considerable and taxing effort and are for medical reasons or hindu services or infrequently or short duration when for other reasons) because: Homebound Reason: Patient requires assistance of a person or device to safely leave home, Severity of cardiac or pulmonary status limits activity tolerance Attestation: My signature below is to certify that this patient is under my care and that I, or nurse practitioner, or a physician's assistant production manager working with me, has a face-to -face encounter with this patient.
[2016-10-19 11:04] VITALS: BP 104/51
== END 2016-10-19 12:05 | disposition home health service (06) | DRG 208 ==
LOC: EMEROO 14:45 → ICNU 20:38 → SUATTDRO 20:38 → ICNU 21:05 → 3ANU 10-17 15:13
PROVIDERS: ADMIT Internal Medicine; ATTEND Internal Medicine

== ENCOUNTER 2016-12-28 18:55 | Inpatient (IN) ==
[2016-12-28] MEDS ORDERED: 0.9 % Sodium Chloride 1,000 ML IVC ONE (19:06)
[2016-12-28] MEDS ORDERED: 0.9 % Sodium Chloride 1,000 ML ONE (19:11)
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
[2016-12-28 19:23] LABS: Basophils % 0.6 %; Eosinophils # 0.1 K/mcL (0.0-0.6); Eosinophils % 2.1 %; Hematocrit 31.5 % (35.3-44.9); Hemoglobin 8.6 g/dL (11.5-15.4); Immature Granulocytes % 0.8 % (0-4); Lymphocytes # 0.7 K/mcL (0.6-4.6); Lymphocytes % 11.3 %; Mean Corpuscular HGB Conc 27.3 g/dL (31.6-35.5); Mean Corpuscular Hemoglobin 23.4 pg (28.0-33.3); Mean Corpuscular Volume 85.8 fL (83.0-100.0); Mean Platelet Volume 9.9 fL (9.4-12.4); Monocytes # 0.5 K/mcL (0.0-1.3); Monocytes % 8.1 %; Neutrophils # 4.9 K/mcL (1.6-8.9); Platelet Count 189 K/mcL (140-400); Red Blood Count 3.67 M/mcL (3.82-4.97); Red Cell Distribution Width 16.7 % (11.5-14.5); Segmented Neutrophils % 77.1 %
[2016-12-28 19:26] LABS: INR 1.1; Prothrombin Time 11.8 Seconds (9.4-12.1)
[2016-12-28 19:34] LABS: Bilirubin,Urine Small (Negative); Blood,Urine Large (Negative); Clarity,Urine Turbid (Clear); Color,Urine Dark Yellow (Yellow); Glucose,Urine (UA) Normal (Normal); Ketones,Urine Negative (Negative); Leukocyte Esterase,Urine Large (Negative); Nitrite,Urine Positive (Negative); Protein,Urine 100 mg/dL (Neg-Trace); Specific Gravity,Urine 1.019 (1.010-1.025); Urobilinogen,Urine Normal (Normal)
[2016-12-28 19:35] LABS: Albumin 3.3 g/dL (3.5-5.0); Albumin/Globulin Ratio 0.9 (1.1-2.2); Bilirubin,Total 0.5 mg/dL (0.2-1.2); Calcium 9.9 mg/dL (8.6-10.8); Globulin 3.8 g/dL (2.4-3.5); Potassium 4.4 mEq/L (3.5-4.5); Total Protein 7.1 g/dL (6.0-8.3)
[2016-12-28 19:36] LABS: Bacteria,Urine Many per hpf (None-Few); Hyaline Casts,Urine None Seen per lpf (None-Few); RBC,Urine TNTC per hpf (0-3); Squamous Epithelial Cell,Urine Many per lpf (None-Few); WBC,Urine TNTC per hpf (0-3)
[2016-12-28 19:38] LABS: Hypochromasia Present (Not Present); Platelet Estimate Normal (Normal)
[2016-12-28 19:39] LABS: Anisocytosis 1+ (Not Present)
[2016-12-28 19:48] LABS: Calcium Oxalate Crystals,Urine Present
--- NOTE | 2016-12-28 21:56 | Event Note ---
Date of Encounter: 12/28/16 Time of Encounter: 21:54 Patient and examined with certified medical aide. Recurrent falls. Patient found to have UTI and acute kidney injury. Hydrate, antibiotics, physical therapy and occupational therapy to see. Inpatient admission. She is full code.
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
[2016-12-28] MEDS ORDERED: Naloxone 0.4 MG/ML INJ IVP PRN (22:10)
[2016-12-28] MEDS ORDERED: Acetaminophen 325 MG TABLET PO PRN (22:10)
[2016-12-28] MEDS ORDERED: Ipratropium/Albuterol Neb 3 ML IH PRN (22:18)
[2016-12-28 22:33] LABS: Magnesium 1.8 mg/dL (1.6-2.6)
[2016-12-28] MEDS ORDERED: 0.9 % Sodium Chloride 1,000 ML IVC SCH (22:45)
[2016-12-29] MEDS: Pantoprazole 40 MG VIAL IVP SCH (05:56)
[2016-12-29] MEDS: *HR* Heparin 5,000 UNIT/ML VIAL SQ SCH ×3 (05:56→20:17)
[2016-12-29] MEDS: *HR* OxyCODONE/APAP 10/325 TABLET PO PRN ×2 (06:02→21:43)
[2016-12-29 07:12] LABS: Hematocrit 28.1 % (35.3-44.9)
[2016-12-29 07:14] LABS: Basophils % 0.5 %; Eosinophils # 0.2 K/mcL (0.0-0.6); Eosinophils % 2.6 %; Hemoglobin 7.8 g/dL (11.5-15.4); Immature Granulocytes % 0.6 % (0-4); Lymphocytes # 0.9 K/mcL (0.6-4.6); Lymphocytes % 13.8 %; Mean Corpuscular HGB Conc 27.8 g/dL (31.6-35.5); Mean Corpuscular Hemoglobin 23.4 pg (28.0-33.3); Mean Corpuscular Volume 84.4 fL (83.0-100.0); Mean Platelet Volume 10.4 fL (9.4-12.4); Monocytes # 0.5 K/mcL (0.0-1.3); Monocytes % 7.7 %; Platelet Count 169 K/mcL (140-400); Red Blood Count 3.33 M/mcL (3.82-4.97); Red Cell Distribution Width 16.5 % (11.5-14.5); Segmented Neutrophils % 74.8 %
[2016-12-29 07:26] LABS: Neutrophils # 4.6 K/mcL (1.6-8.9)
[2016-12-29 07:53] LABS: Magnesium 1.6 mg/dL (1.6-2.6); Potassium 4.2 mEq/L (3.5-4.5)
[2016-12-29] MEDS: Budesonide/Formoterol 160/4.5 MDI IH SCH ×2 (07:56→20:56)
[2016-12-29 08:36] LABS: Anisocytosis 1+ (Not Present); Hypochromasia Present (Not Present); Macrocytosis Present (Not Present); Platelet Estimate Normal (Normal)
[2016-12-29] MEDS ORDERED: Furosemide 40 MG TABLET PO SCH (09:00)
[2016-12-29] MEDS: FLUoxetine 20 MG CAPSULE PO SCH ×2 (09:08→20:17)
[2016-12-29] MEDS: Folic Acid 1 MG TABLET PO SCH (09:08)
[2016-12-29 12:30] LABS: Hematocrit 27.7 % (35.3-44.9); Hemoglobin 7.9 g/dL (11.5-15.4)
--- NOTE | 2016-12-29 14:31 | Internal Med Progress Note ---
Date of Encounter: 12/29/16 Time of Encounter: 09:25 - Assessment and plan (1) Bzfkw-ig-[id number] kidney injury Current Visit: Yes Status: Acute Assessment and plan: Improving. Creatinine is 1.49 today. Likely from prerenal azotemia/ dehydration at underlying acute urinary tract infection. Continue to monitor renal function. Avoid nephrotoxic agents. Moderate risk for complications. Qualifiers: Acute renal failure type: unspecified Chronic kidney disease stage: stage 3 (moderate) Qualified Code(s): N17.9 - Acute kidney failure, unspecified; N18.3 - Chronic kidney disease, stage 3 (moderate) (2) Anemia Current Visit: Yes Status: Chronic Assessment and plan: Hemoglobin 7.8 this morning. Around her baseline. We will monitor blood counts. Continue iron and folic acid supplementation. Qualifiers: Anemia type: due to chronic kidney disease Chronic kidney disease stage: stage 3 (moderate) Qualified Code(s): N18.3 - Chronic kidney disease, stage 3 (moderate); D63.1 - Anemia in chronic kidney disease (3) Atrial fibrillation Current Visit: Yes Status: Chronic Assessment and plan: Rate controlled and regular. Not on anticoagulation likely due to recurrent falls and anemia. Qualifiers: Atrial fibrillation type: chronic Qualified Code(s): I48.2 - Chronic atrial fibrillation (4) Congestive heart failure Current Visit: Yes Status: Chronic Assessment and plan: Not in acute exacerbation. Holding Lasix due to dehydration. Continue other medications. Qualifiers: Congestive heart failure type: combined Congestive heart failure chronicity : chronic Qualified Code(s): I50.42 - Chronic combined systolic (congestive) and diastolic (congestive) heart failure (5) COPD (chronic obstructive pulmonary disease) Current Visit: Yes Status: Chronic Assessment and plan: Chronic. Not in acute exacerbation. Qualifiers: COPD type: chronic bronchitis Chronic bronchitis type: mucopurulent Qualified Code(s): J41.1 - Mucopurulent chronic bronchitis (6) Dehydration Current Visit: Yes Status: Acute Assessment and plan: Improved with hydration (7) DVT prophylaxis Current Visit: Yes Status: Acute Assessment and plan: With subcutaneous heparin (8) Falls Current Visit: Yes Status: Acute Assessment and plan: Recurrent falls. Could be exacerbated by acute urinary tract infection. PT OT and social insurance specialist have been consulted. Patient does not wish to go to rehabilitation at the end of this hospital stay. Qualifiers: Encounter type: initial encounter Qualified Code(s): W19.XXXA - Unspecified fall, initial encounter (9) UTI (urinary tract infection) Current Visit: Yes Status: Acute Assessment and plan: Urine cultures growing Escherichia coli. Await sensitivity results. Continue ceftriaxone. Qualifiers: Urinary tract infection type: acute cystitis Hematuria presence: with hematuria Qualified Code(s): N30.01 - Acute cystitis with hematuria (10) Weakness Current Visit: No Status: Acute Assessment and plan: Physical therapy has been consulted. We will follow recommendations - Subjective Interval history: Patient feels better this morning. Dysuria has improved. Denies any fevers or chills. No shortness of breath. Having good urine output. No chest pain. No chest pain. - Constitutional Vitals: Temp Pulse Resp BP Pulse Ox 98.1 F 60 16 103/60 99 12/29/16 12:27 12/29/16 12:27 12/29/16 12:27 12/29/16 12:27 12/29/16 12:27 General appearance: Present: cooperative, mild distress, A&O X 3, answers questions appropriately - Neck Neck exam general surgery: Present: supple, trachea midline. Absent: lymphadenopathy - Respiratory Respiratory exam: Present: CTAB. Absent: accessory muscle use, rales, rhonchi, wheezes - Cardiovascular Cardiovascular exam: Present: RRR, +S1, +S2. Absent: diastolic murmur, gallop, rubs, systolic murmur - GI/Abdominal GI/Abdominal exam: Present: normal bowel sounds, soft, no peritoneal signs. Absent: distended, tenderness - Extremities Exam Extremities exam: Present: warm, radial pulses palpable and symmetrical. Absent : calf tenderness, cyanotic, pedal edema - Neurological Exam Neurological exam: Present: alert, oriented X3, no focal deficits. Absent: facial droop, speech deficit Internal Medicine: Result - Labs CBC & Chem 7: 12/29/16 12:04 12/29/16 05:29 Labs: Short CBC 12/29/16 Range/Units 12:04 Hgb 7.9 L (11.5-15.4) g/dL Hct 27.7 L (35.3-44.9) % - ABG Interpretation ABG results: PT/INR, D-dimer PT 11.8 Seconds (9.4-12.1) 12/28/16 19:09 Consult Discharge Plan - Plan Referrals: Francisco Melgar Jr [Primary Care Provider] -
[2016-12-29] MEDS ORDERED: rOPINIRole 1 MG TABLET PO SCH (21:00)
[2016-12-29] MEDS: Nystatin POWDER 30 GM BOTTLE TP SCH (22:32)
[2016-12-30 03:47] LABS: Immature Granulocytes % 0.9 % (0-4)
[2016-12-30 03:49] LABS: Basophils % 0.4 %; Eosinophils # 0.1 K/mcL (0.0-0.6); Eosinophils % 1.9 %; Hematocrit 28.6 % (35.3-44.9); Hemoglobin 7.9 g/dL (11.5-15.4); Lymphocytes # 0.6 K/mcL (0.6-4.6); Lymphocytes % 9.1 %; Mean Corpuscular HGB Conc 27.6 g/dL (31.6-35.5); Mean Corpuscular Hemoglobin 23.5 pg (28.0-33.3); Mean Corpuscular Volume 85.1 fL (83.0-100.0); Monocytes # 0.4 K/mcL (0.0-1.3); Platelet Count 163 K/mcL (140-400); Red Blood Count 3.36 M/mcL (3.82-4.97); Red Cell Distribution Width 16.4 % (11.5-14.5); Segmented Neutrophils % 81.7 %
[2016-12-30 03:53] LABS: Neutrophils # 5.5 K/mcL (1.6-8.9)
[2016-12-30 04:10] LABS: Hypochromasia Present (Not Present); Platelet Estimate Normal (Normal)
[2016-12-30 04:13] LABS: Anisocytosis 1+ (Not Present)
[2016-12-30 04:14] LABS: Polychromasia 1+ (Not Present)
[2016-12-30 04:18] LABS: Calcium 9.4 mg/dL (8.6-10.8); Potassium 3.9 mEq/L (3.5-4.5)
[2016-12-30] MEDS: Pantoprazole 40 MG VIAL IVP SCH (06:27)
[2016-12-30] MEDS: *HR* Heparin 5,000 UNIT/ML VIAL SQ SCH (06:28)
[2016-12-30 07:38] VITALS: BP 109/56
[2016-12-30] MEDS: Folic Acid 1 MG TABLET PO SCH (07:39)
[2016-12-30] MEDS: *HR* OxyCODONE/APAP 10/325 TABLET PO PRN (07:39)
[2016-12-30] MEDS: FLUoxetine 20 MG CAPSULE PO SCH (07:40)
[2016-12-30] MEDS: Nystatin POWDER 30 GM BOTTLE TP SCH (07:41)
[2016-12-30] MEDS: Budesonide/Formoterol 160/4.5 MDI IH SCH (07:47)
--- NOTE | 2016-12-30 08:32 | Discharge Summary ---
Date of Encounter: 12/30/16 Time of Encounter: 08:28 - Discharge Diagnosis (1) Iwmld-ob-dvmwguh kidney injury Priority: Primary Status: Acute Qualifiers: Acute renal failure type: unspecified Chronic kidney disease stage: stage 3 (moderate) Qualified Code(s): N17.9 - Acute kidney failure, unspecified; N18.3 - Chronic kidney disease, stage 3 (moderate) (2) UTI (urinary tract infection) Priority: Secondary Status: Acute Qualifiers: Urinary tract infection type: acute cystitis Hematuria presence: with hematuria Qualified Code(s): N30.01 - Acute cystitis with hematuria (3) Anemia Priority: Secondary Status: Chronic Qualifiers: Anemia type: due to chronic kidney disease Chronic kidney disease stage: stage 3 (moderate) Qualified Code(s): N18.3 - Chronic kidney disease, stage 3 (moderate); D63.1 - Anemia in chronic kidney disease (4) Atrial fibrillation Priority: Secondary Status: Chronic Qualifiers: Atrial fibrillation type: chronic Qualified Code(s): I48.2 - Chronic atrial fibrillation (5) Congestive heart failure Priority: Secondary Status: Chronic Qualifiers: Congestive heart failure type: combined Congestive heart failure chronicity : chronic Qualified Code(s): I50.42 - Chronic combined systolic (congestive) and diastolic (congestive) heart failure (6) COPD (chronic obstructive pulmonary disease) Priority: Secondary Status: Chronic Qualifiers: COPD type: chronic bronchitis Chronic bronchitis type: mucopurulent Qualified Code(s): J41.1 - Mucopurulent chronic bronchitis (7) Dehydration Priority: Secondary Status: Acute (8) DVT prophylaxis Priority: Secondary Status: Acute (9) Falls Priority: Secondary Status: Acute Qualifiers: Encounter type: initial encounter Qualified Code(s): W19.XXXA - Unspecified fall, initial encounter (10) Weakness Priority: Secondary Status: Acute (11) Chronic respiratory failure with hypoxia Priority: Secondary Status: Chronic - Discharge Medications Prescriptions: cephALEXin [Keflex] 500 mg PO BID #16 capsule Home Medications: Budesonide/Formoterol 160/4.5 [Symbicort] 2 puff IH BID 01/30/15 [History] FLUoxetine HCl [Prozac] 20 mg PO BID 01/30/15 [History] Oxycodone HCl/Acetaminophen [Percocet 10-325 mg Tablet] 1 tab PO Q6H PRN [History] Allopurinol [Zyloprim 300 MG] 300 mg PO DAILY 01/12/16 [History] Ropinirole HCl [Requip] 2 mg PO HS 01/12/16 [History] Calcium Carbonate [Calcium] 1,500 mg PO BID 04/22/16 [History] Ipratropium/Albuterol Neb [Duoneb] 3 ml IH Q6HR PRN 04/22/16 [History] Levothyroxine [Synthroid] 50 mcg PO DAILY 04/22/16 [History] Oxygen 2.5 l NS CONT 04/22/16 [History] Metoprolol [Lopressor] 12.5 mg PO BID #60 tablet 04/27/16 [Rx] Folic Acid 1 mg PO DAILY 05/28/16 [History] Ferrous Sulfate 325 mg PO BIDWM #60 tablet 06/06/16 [Rx] Ranitidine HCl [Acid Repair Specialist] 150 mg PO BID 07/12/16 [History] Albuterol Sulfate [Ventolin Hfa] 1 - 2 puff IH Q4-6H PRN 10/14/16 [History] Potassium Chloride [K-Tab ER] 40 meq PO QPM 10/14/16 [History] Potassium Chloride [K-Tab ER] 60 meq PO QAM 10/14/16 [History] Umeclidinium Vendor [Incruse Ellipta] 1 puff IH DAILY 10/14/16 [History] Amiodarone [Cordarone] 200 mg PO BID 12/29/16 [History] Furosemide [Lasix] 40 mg PO QPM 12/29/16 [History] Furosemide [Lasix] 80 mg PO QAM 12/29/16 [History] cephALEXin [Keflex] 500 mg PO BID #16 capsule 12/30/16 [Rx] Allergies/Adverse Reactions: 3 Allergy/AdvReac Type Severity Reaction Status Date / Time albuterol Allergy Drowsy Verified 10/13/16 14:47 gabapentin Allergy Hallucinati Verified 10/13/16 14:47 ng Penicillins Allergy Hives Verified 10/13/16 14:47 Sulfa (Sulfonamide Allergy Hives Verified 10/13/16 14:47 Antibiotics) eufemia AdvReac Nausea Uncoded 10/13/16 14:47 Date of admission: 12/29/16 07:03 Primary care physician: Francisco Melgar Jr Discharging clinician: Delano Kraft Anticipated date of discharge: 12/30/16 - Patient Status Disposition: Home Health Service Condition: Fair Functional capacity at discharge: uses cane/walker Overall status at discharge: patient is progressing back to baseline - Discharge Instructions Instructions: Heart Failure (DC), Atrial Fibrillation (DC), Anemia (GEN), Fall Prevention (DC) Follow Up With: Francisco Melgar Jr [Primary Care Provider] - 01/03/17 2:10 pm (in 1-2 weeks) - Diet and Activity Activity: as per physical therapy, increase activity as tolerated Diet: diabetic diet, low fat, low cholesterol, low salt diet Hospital course: Ms. Higginbotham is a 76 year old female patient with history of atrial fibrillation, congestive heart failure, COPD, bioprosthetic aortic valve who was hospitalized here with acute urinary tract infection with recurrent falls. Also had mild elevation in her BUN and creatinine above her baseline. She was treated for these conditions with IV antibiotics and gentle IV hydration. Her symptoms have clinically improved and I have discussed the plan of care with the patient. I do recommend that she consider going to a skilled rehabilitation but she wishes to go home as she has already spent a lot of time in and out of facilities including multiple hospital stays. She already has home health available to her. Her urine culture is positive for Escherichia coli and she will complete treatment for this with cephalexin. She does have chronic anemia which could be another factor contributing to her falls. Her hemoglobin levels have been stable between 7 and 9 and over the past 2-3 months. Renal function has returned to baseline. She was discharged today with home health care. - Time Spent with Patient Total time spent providing and/or coordinating discharge services: Less than 30 minutes (25 min) - Constitutional Vitals: Temp Pulse Resp BP Pulse Ox 98.3 F 69 16 109/56 98 12/30/16 07:30 12/30/16 07:30 12/30/16 07:49 12/30/16 07:30 12/30/16 08:18 General appearance: Present: cooperative, A&O X 3, no acute distress, answers questions appropriately - Neck Neck exam general surgery: Present: supple, trachea midline. Absent: lymphadenopathy - Respiratory Respiratory exam: Present: CTAB. Absent: accessory muscle use, rales, rhonchi, wheezes - Cardiovascular Cardiovascular exam: Present: RRR, +S1, +S2. Absent: diastolic murmur, gallop, rubs, systolic murmur - GI/Abdominal GI/Abdominal exam: Present: normal bowel sounds, soft, no peritoneal signs. Absent: distended, tenderness - Extremities Exam Extremities exam: Present: warm, radial pulses palpable and symmetrical. Absent : calf tenderness, cyanotic, pedal edema
--- NOTE | 2016-12-30 08:38 | Physician Discharge Referral ---
Home Health/Hosp Referral Info Transfer to: Home Health Provider in Charge Post Discharge: PCP - Diagnosis (1) Othrw-hh-clmqpha kidney injury Priority: Primary Status: Acute (2) UTI (urinary tract infection) Priority: Secondary Status: Acute (3) Anemia Priority: Secondary Status: Chronic (4) Atrial fibrillation Priority: Secondary Status: Chronic (5) Congestive heart failure Priority: Secondary Status: Chronic (6) COPD (chronic obstructive pulmonary disease) Priority: Secondary Status: Chronic (7) Dehydration Priority: Secondary Status: Acute (8) DVT prophylaxis Priority: Secondary Status: Acute (9) Falls Priority: Secondary Status: Acute (10) Weakness Priority: Secondary Status: Acute - Respiratory Orders Oxygen / L per min (2-3) Smoking Cessation: Smoking cessation has been advised. For more information, call the [employer] Quit Line at 8-687-QMSC-NOW. - Diet/Nutrition Diet/Nutrition Orders: Cardiac, No Concentrated Sweets (and diabetic) - Activity Activity Orders: Ambulate, Walker - Services Needed Following services are medically necessary services: Nursing, Home Health Aide, Physical Therapy, Occupational Therapy - Transfer Medications Prescriptions: cephALEXin [Keflex] 500 mg PO BID #16 capsule Home Medications: Budesonide/Formoterol 160/4.5 [Symbicort] 2 puff IH BID 01/30/15 [History] FLUoxetine HCl [Prozac] 20 mg PO BID 01/30/15 [History] Oxycodone HCl/Acetaminophen [Percocet 10-325 mg Tablet] 1 tab PO Q6H PRN [History] Allopurinol [Zyloprim 300 MG] 300 mg PO DAILY 01/12/16 [History] Ropinirole HCl [Requip] 2 mg PO HS 01/12/16 [History] Calcium Carbonate [Calcium] 1,500 mg PO BID 04/22/16 [History] Ipratropium/Albuterol Neb [Duoneb] 3 ml IH Q6HR PRN 04/22/16 [History] Levothyroxine [Synthroid] 50 mcg PO DAILY 04/22/16 [History] Oxygen 2.5 l NS CONT 04/22/16 [History] Metoprolol [Lopressor] 12.5 mg PO BID #60 tablet 04/27/16 [Rx] Folic Acid 1 mg PO DAILY 05/28/16 [History] Ferrous Sulfate 325 mg PO BIDWM #60 tablet 06/06/16 [Rx] Ranitidine HCl [Acid Foil Wrapper] 150 mg PO BID 07/12/16 [History] Albuterol Sulfate [Ventolin Hfa] 1 - 2 puff IH Q4-6H PRN 10/14/16 [History] Potassium Chloride [K-Tab ER] 40 meq PO QPM 10/14/16 [History] Potassium Chloride [K-Tab ER] 60 meq PO QAM 10/14/16 [History] Umeclidinium [place] [Incruse Ellipta] 1 puff IH DAILY 10/14/16 [History] Amiodarone [Cordarone] 200 mg PO BID 12/29/16 [History] Furosemide [Lasix] 40 mg PO QPM 12/29/16 [History] Furosemide [Lasix] 80 mg PO QAM 12/29/16 [History] cephALEXin [Keflex] 500 mg PO BID #16 capsule 12/30/16 [Rx] Allergies/Adverse Reactions: 3 Allergy/AdvReac Type Severity Reaction Status Date / Time albuterol Allergy Drowsy Verified 10/13/16 14:47 gabapentin Allergy Hallucinati Verified 10/13/16 14:47 ng Penicillins Allergy Hives Verified 10/13/16 14:47 Sulfa (Sulfonamide Allergy Hives Verified 10/13/16 14:47 Antibiotics) jello AdvReac Nausea Uncoded 10/13/16 14:47 Certification: Further, I certify that my clinical findings support that this patient is homebound (i.e. absences from home require considerable and taxing effort and are for medical reasons or gnosticism services or infrequently or short duration when for other reasons) because: Homebound Reason: Patient requires assistance of a person or device to safely leave home, Severity of cardiac or pulmonary status limits activity tolerance Attestation: My signature below is to certify that this patient is under my care and that I, or nurse practitioner, or a physician's executive assistant working with me, has a face-to -face encounter with this patient.
--- NOTE | 2016-12-30 17:30 | Electrocardiograph Report ---
[place] [id number] Test Date: 2016-12-28 Pat Name: Janay Higginbotham Department: 105 Room: 3B Gender: F Maintenance Man: SADAF : 1940 Requested By: Jose L Choi Order Number: [id number] Reading MD: Leonard Sánchez MD Measurements Intervals [place] Rate: 59 P: 17 ID: [id number] QRS: -25 QRSD: 166 T: 29 QT: 503 QTc: 503 Interpretive Statements SINUS BRADYCARDIA BORDERLINE LEFT AXIS DEVIATION RIGHT BUNDLE BRANCH BLOCK Electronically Signed On 12-30-2016 17:29:11 EDT by Leonard Sánchez MD
== END 2016-12-30 10:05 | disposition home health service (06) | DRG 690 ==
LOC: 3BNU 18:55 → EMEROO 18:55 → 3BNU 22:02 → SUATTDRO 12-29 07:03
PROVIDERS: ADMIT Hospitalist; ATTEND Internal Medicine

== ENCOUNTER 2017-04-02 17:55 | Inpatient (IN) ==
[2017-04-02] MEDS ORDERED: methylPREDNISolone 125 MG/2 ML VIAL IVP ONE (18:22)
--- NOTE | 2017-04-02 18:22 | Emergency Department Note ---
Disposition Clinical Impression: Acute respiratory distress, S/P AVR (aortic valve replacement), Acute respiratory failure with hypoxia and hypercapnia Anemia Qualifiers: Anemia type: other cause Other causes of anemia: acute posthemorrhagic Qualified Code(s): D62 - Acute posthemorrhagic anemia Acute exacerbation of CHF (congestive heart failure) Qualifiers: Congestive heart failure type: diastolic Qualified Code(s): I50.33 - Acute on chronic diastolic (congestive) heart failure Disposition: Admitted As Inpatient Condition: Fair Time of Disposition: 22:20 SOB HPI - General Chief Complaint: ED Shortness of Breath/Dyspnea Stated Complaint: CONTRERAS Time Seen by Provider: 04/02/17 18:02 Source: patient, EMS Mode of arrival: EMS Limitations: no limitations Nursing Notes Reviewed: Yes Vital Signs Reviewed: Yes - History of Present Illness 76-year-old female with history of anemia, COPD, CHF, presents with shortness of breath via EMS. Patient states that she has been having worsening shortness of breath for days. She was finally convinced to come out to the hospital. She is having wheezing and productive cough, low-grade fevers at home. Patient has been trying breathing treatment she did get DuoNeb at in route. He is a history of anemia but denies any GI bleeding recently, denies hematochezia or melena. Her last hemoglobin checked was in the anemic range but she was not transfused last time she was in the hospital. Patient denies any abdominal pain. She states she is more short of breath and has been taking her diuretic as scheduled. Denies hemoptysis, history of blood clots. Denies Recent travel or surgery. Denies Estrogen use. Pt Subjective Complaint: shortness of breath Onset (ago): day(s) Severity: moderate Consistency/Duration: intermittent Improves with: oxygen Worsens with: nothing Known history of: COPD, congestive heart failure Associated symptoms: Reports: cough, wheezing, sputum production, orthopnea. Denies: chest pain, pain with inspiration, fever Cough present: Yes Cough Description: Voluntary Cough Frequency: Intermittent Sputum Amount: Scant Sputum Color: White - Related Data Home Medications Medication Instructions Recorded Confirmed Budesonide/Formoterol 160/4.5 2 puff IH BID 01/30/15 12/29/16 [Symbicort] FLUoxetine HCl [Prozac] 20 mg PO BID 01/30/15 12/29/16 Oxycodone HCl/Acetaminophen 1 tab PO Q6H PRN 08/12/15 12/29/16 [Percocet 10-325 mg Tablet] Allopurinol [Zyloprim 300 MG] 300 mg PO DAILY 01/12/16 12/29/16 Ropinirole HCl [Requip] 2 mg PO HS 01/12/16 12/29/16 Calcium Carbonate [Calcium] 1,500 mg PO BID 04/22/16 12/29/16 Ipratropium/Albuterol Neb [Duoneb] 3 ml IH Q6HR PRN 04/22/16 12/29/16 Levothyroxine [Synthroid] 50 mcg PO DAILY 04/22/16 12/29/16 Oxygen 2.5 l NS CONT 04/22/16 12/29/16 Folic Acid 1 mg PO DAILY 05/28/16 12/29/16 Ranitidine HCl [Acid Boat Tender] 150 mg PO BID 07/12/16 12/29/16 Albuterol Sulfate [Ventolin Hfa] 1 - 2 puff IH Q4-6H PRN 10/14/16 12/29/16 Potassium Chloride [K-Tab ER] 40 meq PO QPM 10/14/16 12/29/16 Potassium Chloride [K-Tab ER] 60 meq PO QAM 10/14/16 12/29/16 Umeclidinium [place] [Incruse 1 puff IH DAILY 10/14/16 12/29/16 Ellipta] Amiodarone [Cordarone] 200 mg PO BID 12/29/16 12/29/16 Furosemide [Lasix] 40 mg PO QPM 12/29/16 12/29/16 Furosemide [Lasix] 80 mg PO QAM 12/29/16 12/29/16 Previous Rx's Medication Instructions Recorded Metoprolol [Lopressor] 12.5 mg PO BID #60 tablet 04/27/16 Ferrous Sulfate 325 mg PO BIDWM #60 tablet 06/06/16 cephALEXin [Keflex] 500 mg PO BID #16 capsule 12/30/16 Allergies Allergy/AdvReac Type Severity Reaction Status Date / Time albuterol Allergy Drowsy Verified 10/13/16 14:47 gabapentin Allergy Hallucinati Verified 10/13/16 14:47 ng Penicillins Allergy Hives Verified 10/13/16 14:47 Sulfa (Sulfonamide Allergy Hives Verified 10/13/16 14:47 Antibiotics) eufemia AdvReac Nausea Uncoded 10/13/16 14:47 All systems ED: reviewed and negative except as stated. Review of Systems: As Per HPI Constitutional: Reports: fever, chills Eyes: Denies: eye pain, eye discharge ENT ED: Denies: ear pain Cardiovascular: Denies: chest pain Respiratory: Reports: cough, dyspnea, wheezes Gastrointestinal: Denies: abdominal pain, nausea, vomiting Genitourinary: Denies: urgency, dysuria Musculoskeletal: Denies: back pain, neck pain Integumentary: Denies: rash, abrasion Neurological: Denies: headache Past Medical History - Past Medical History Attestation: Yes The following information was validated with the patient. Source: patient Medical history: Reports: asthma, atrial fibrillation, cancer, cardiomyopathy, CHF, COPD, GERD, GI bleed, thyroid disease, valvular heart disease, other Surgical history: Reports: appendectomy, breast surgery, cancer surgery, heart valve replacement, hysterectomy, pacemaker/AICD Psychiatric history: Reports: anxiety, depression BILINGUAL SOCIAL WORKER history: Reports: no BILINGUAL SOCIAL WORKER history - Social History Smoking Status: Former smoker Smokeless Tobacco Status: No Alcohol use: Reports: none Drug use: Reports: none Physical Exam - General Limitations: no limitations General appearance: alert, in no apparent distress - Head Head exam: atraumatic - Eye Eye exam: Present: normal appearance, PERRL - ENT ENT exam: normal exam, mucous membranes dry - Neck Neck exam: Present: normal inspection, full ROM - Chest Chest inspection: Present: normal inspection, symmetric chest wall rise - Respiratory Respiratory exam: Present: respiratory distress, wheezes, accessory muscle use - Cardiovascular Cardiovascular exam: Present: tachycardia - Abdominal Exam Abdominal exam: Present: soft, Non-Tender. Absent: guarding - Rectal Exam Constitutional Law Professor present during exam: No Rectal exam: Present: deferred - Extremities Exam Extremities exam: Present: normal inspection, full ROM - Expanded Lower Extremity Exam Neurovascular/Tendon exam: Absent: normal capillary refill Course Course Narrative: 76-year-old female with shortness of breath and wheezing, will try DuoNeb treatment she did get one in route scolded 2 additional DuoNeb Solu-Medrol, plan is for chest pain workup CBC BMP troponin, suspect possible multifocal or respiratory failure. - Reevaluation(s) Reevaluation #1: Patient has evidence of anemia with hemoglobin of 5.2, she declines a rectal exam at this time, states that she has never had anything found on colonoscopy or rectal exam so she does not want one now She will consent to 2 units of RBCs , she is clinically mildly volume overloaded with an elevated BNP of 1500 and small pleural effusions, I am not given fluids but will give units of blood, also do not improve or think she is multi-factorial acute on chronic respiratory distress with Dr. Haider COPD exacerbation and severe anemia noted to hospitalist Dr Lissa Long Vital Signs Temperature 98.1 F 04/02/17 18:01 Pulse Rate 75 04/02/17 18:01 Respiratory Rate 16 04/02/17 18:01 Blood Pressure 136/67 04/02/17 18:01 O2 Sat by Pulse Oximetry 97 04/02/17 18:01 Temperature 98.1 F 04/02/17 18:01 Pulse Rate 71 04/02/17 21:52 Respiratory Rate 16 04/02/17 21:52 Blood Pressure 131/58 04/02/17 21:52 O2 Sat by Pulse Oximetry 96 04/02/17 21:52 Oxygen Delivery Oxygen Delivery Room Air Shortness of Breath/Dyspnea - Differential Diagnosis Likely: acute exacerbation of chronic obstructive airways disease, pneumonia, asthma with exacerbation, pulmonary embolism - Medical Records Medical records reviewed: Yes I reviewed the patient's medical records. - Lab Data Lab results reviewed: Yes I reviewed the patient's lab results. Result diagrams: 04/02/17 18:58 04/02/17 18:58 Lab Results 04/02/17 04/02/17 04/02/17 Range/Units 18:58 18:58 18:58 WBC 6.6 (4.3-11.1) K/mcL RBC 2.72 L (3.82-4.97) M/mcL Hgb 5.1 L* (11.5-15.4) g/dL Hct 20.8 L (35.3-44.9) % MCV 76.5 L (83.0-100.0) fL MCH 18.8 L (28.0-33.3) pg MCHC 24.5 L (31.6-35.5) g/dL RDW 18.0 H (11.5-14.5) % Plt Count 217 (140-400) K/mcL MPV 9.7 (9.4-12.4) fL Immature Gran % 2.1 (0-4) % Seg Neutrophils % 83.2 % Lymphocytes % 4.9 % Monocytes % 8.7 % Eosinophils % 0.8 % Basophils % 0.3 % Neutrophils # 5.5 (1.6-8.9) K/mcL Lymphocytes # 0.3 L (0.6-4.6) K/mcL Monocytes # 0.6 (0.0-1.3) K/mcL Eosinophils # 0.1 (0.0-0.6) K/mcL Basophils # 0.0 (0.0-0.2) K/mcL Nucleated RBCs/100 WBC 0.6 H (0) /100 WBC Polychromasia 1+ A (Not Present) Hypochromasia Present A (Not Present) Sodium 142 (136-145) mEq/L Potassium 4.5 (3.5-4.5) mEq/L Chloride 94 L (98-109) mEq/L Carbon Dioxide 39 H (19-29) mEq/L BUN 21 H (7-20) mg/dL Creatinine 1.28 H (0.57-1.11) mg/dL Est GFR ( Amer) 49 L (> 60) Est GFR (Non-Af Amer) 40 L (> 60) BUN/Creatinine Ratio 16 (6-26) Glucose 177 H (70-99) mg/dL Calculated Osmolality 301 H (280-300) Lactic Acid 1.2 (0.5-2.2) mmol/L Calcium 8.9 (8.6-10.8) mg/dL Troponin I (0-0.03) ng/mL B-Natriuretic Peptide (0-100) pg/mL Blood Type Antibody Screen Crossmatch 04/02/17 04/02/17 04/02/17 Range/Units 18:58 18:58 20:59 WBC (4.3-11.1) K/mcL RBC (3.82-4.97) M/mcL Hgb (11.5-15.4) g/dL Hct (35.3-44.9) % MCV (83.0-100.0) fL MCH (28.0-33.3) pg MCHC (31.6-35.5) g/dL RDW (11.5-14.5) % Plt Count (140-400) K/mcL MPV (9.4-12.4) fL Immature Gran % (0-4) % Seg Neutrophils % % Lymphocytes % % Monocytes % % Eosinophils % % Basophils % % Neutrophils # (1.6-8.9) K/mcL Lymphocytes # (0.6-4.6) K/mcL Monocytes # (0.0-1.3) K/mcL Eosinophils # (0.0-0.6) K/mcL Basophils # (0.0-0.2) K/mcL Nucleated RBCs/100 WBC (0) /100 WBC Polychromasia (Not Present) Hypochromasia (Not Present) Sodium (136-145) mEq/L Potassium (3.5-4.5) mEq/L Chloride (98-109) mEq/L Carbon Dioxide (19-29) mEq/L BUN (7-20) mg/dL Creatinine (0.57-1.11) mg/dL Est GFR ( Amer) (> 60) Est GFR (Non-Af Amer) (> 60) BUN/Creatinine Ratio (6-26) Glucose (70-99) mg/dL Calculated Osmolality (280-300) Lactic Acid (0.5-2.2) mmol/L Calcium (8.6-10.8) mg/dL Troponin I 0.04 H* (0-0.03) ng/mL B-Natriuretic Peptide 1501 H (0-100) pg/mL Blood Type O POSITIVE Antibody Screen NEGATIVE Crossmatch See Detail - Radiology Data Radiology results reviewed: Yes I reviewed the patient's radiology results. Chest X-Ray 04/02/17 18:22 IMPRESSION: Mild CHF though with cardiomegaly, small effusions and mild interstitial edema. D/ / Duy Houser MD / Duy Houser MD Interpreting Provider: Duy Houser MD - EKG Data EKG attestation: Yes I reviewed and interpreted this EKG. EKG shows normal: Reports: sinus rhythm (72 bpm IA 13 QRS 131 QTC 397 interventricular conduction delay seen on previous EKG in December 2016 no evidence of ischemic changes) - Core Measures AMI Core Measures Followed: No
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
[2017-04-02] MEDS ORDERED: Ipratropium/Albuterol Neb 3 ML IH ONE (19:08)
[2017-04-02 19:18] LABS: Basophils % 0.3 %; Hematocrit 20.8 % (35.3-44.9); Mean Platelet Volume 9.7 fL (9.4-12.4)
[2017-04-02 19:19] LABS: Eosinophils # 0.1 K/mcL (0.0-0.6); Eosinophils % 0.8 %; Immature Granulocytes % 2.1 % (0-4); Lymphocytes # 0.3 K/mcL (0.6-4.6); Lymphocytes % 4.9 %; Mean Corpuscular HGB Conc 24.5 g/dL (31.6-35.5); Mean Corpuscular Hemoglobin 18.8 pg (28.0-33.3); Mean Corpuscular Volume 76.5 fL (83.0-100.0); Monocytes # 0.6 K/mcL (0.0-1.3); Monocytes % 8.7 %; Neutrophils # 5.5 K/mcL (1.6-8.9); Nucleated Red Blood Cells 0.6 /100 WBC (0); Platelet Count 217 K/mcL (140-400); Red Blood Count 2.72 M/mcL (3.82-4.97); Segmented Neutrophils % 83.2 %
[2017-04-02 19:21] LABS: Calcium 8.9 mg/dL (8.6-10.8)
[2017-04-02 19:22] LABS: Potassium 4.5 mEq/L (3.5-4.5)
[2017-04-02 19:50] LABS: Hemoglobin 5.1 g/dL (11.5-15.4)
[2017-04-02 19:53] LABS: Hypochromasia Present (Not Present); Polychromasia 1+ (Not Present)
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
[2017-04-02] MEDS ORDERED: Acetaminophen 325 MG TABLET PO PRN (21:44)
[2017-04-02] MEDS ORDERED: Ondansetron 4 MG/2 ML VIAL IVP PRN (21:44)
[2017-04-02] MEDS ORDERED: Naloxone 0.4 MG/ML INJ IVP PRN (21:44)
[2017-04-02] MEDS ORDERED: Furosemide 40 MG/4 ML VIAL IVP ONE (22:28)
[2017-04-02 23:03] LABS: % Iron Saturation 2 % (15-50); Iron 8 mcg/dL (50-170); Transferrin 317 mg/dL (180-382)
[2017-04-02] MEDS ORDERED: *HR* OxyCODONE/APAP 10/325 TABLET PO PRN (23:21)
[2017-04-02 23:24] LABS: Ferritin 40 ng/ml (5-204)
[2017-04-02] MEDS: rOPINIRole 1 MG TABLET PO SCH (23:54)
[2017-04-03] MEDS ORDERED: 0.9 % Sodium Chloride 250 ML ONE ×2 (00:14→04:39)
[2017-04-03 00:39] LABS: Hematocrit 20.5 % (35.3-44.9)
[2017-04-03 00:42] LABS: Hemoglobin 5.1 g/dL (11.5-15.4)
[2017-04-03 00:55] LABS: Thyroid Stimulating Hormone 5.585 mcIU/mL (0.350-4.840)
[2017-04-03] MEDS: Ipratropium/Albuterol Neb 3 ML IH SCH ×4 (04:58→22:26)
[2017-04-03] MEDS ORDERED: Furosemide 40 MG TABLET PO SCH (08:00)
[2017-04-03] MEDS ORDERED: Furosemide 40 MG/4 ML VIAL IVP SCH (08:00)
[2017-04-03 09:25] LABS: INR 1.1; Prothrombin Time 11.9 Seconds (9.4-12.1)
[2017-04-03 09:28] LABS: Activated Partial Thrombo Time 27.4 Seconds (26.0-36.0)
[2017-04-03] MEDS: *HR* Amiodarone 200 MG TABLET PO SCH ×2 (09:29→21:44)
[2017-04-03] MEDS: FLUoxetine 20 MG CAPSULE PO SCH ×2 (09:29→21:44)
[2017-04-03 09:34] LABS: Calcium 9.3 mg/dL (8.6-10.8); Magnesium 1.9 mg/dL (1.6-2.6); Potassium 4.4 mEq/L (3.5-4.5)
[2017-04-03 09:38] LABS: Hematocrit 28.9 % (35.3-44.9); Hemoglobin 7.8 g/dL (11.5-15.4); Mean Corpuscular Hemoglobin 21.1 pg (28.0-33.3); Mean Corpuscular Volume 78.1 fL (83.0-100.0); Mean Platelet Volume 9.7 fL (9.4-12.4); Nucleated Red Blood Cells 1.1 /100 WBC (0); Platelet Count 251 K/mcL (140-400); Red Cell Distribution Width 17.9 % (11.5-14.5)
[2017-04-03 11:14] LABS: Lymphocytes # 0.1 K/mcL (0.6-4.6); Neutrophils # 5.6 K/mcL (1.6-8.9)
[2017-04-03 11:15] LABS: Anisocytosis 1+ (Not Present); Hypochromasia Present (Not Present); Platelet Estimate Normal (Normal); Polychromasia 1+ (Not Present)
[2017-04-03] MEDS: Budesonide/Formoterol 160/4.5 MDI IH SCH ×2 (11:22→22:26)
[2017-04-03] MEDS: SACUBITRIL/VALSARTAN 24/26 MG TABLET PO SCH ×2 (11:35→21:44)
[2017-04-03] MEDS: predniSONE 5 MG TABLET PO SCH (11:35)
--- NOTE | 2017-04-03 11:36 | Internal Med Progress Note ---
Date of Encounter: 04/03/17 Time of Encounter: 11:15 - Assessment and plan (1) Acute on chronic respiratory failure with hypoxia and hypercapnia Current Visit: Yes Status: Acute Assessment and plan: Likely secondary to acute symptomatic anemia and CHF decompensation 2D echo from Apr 2016: LVEF of 55% with mild LV diastolic dysfunction Pt reports of taking lasix three times a day without any improvement, however diuresing appropriately to IV lasix Will continue Lasix 60mg IV BID monitor I/Os, daily weights fluid restriction diet s/p 2units PRBC transfusion repeat H&H within acceptable range, will continue to closely monitor Closely monitor respiratory status, patient has underlying COPD and chronic resp failure with hypercapnia. Bipap support as needed. currently on 4L NC, which is patient's baseline, however she continues to have conversational dyspnea due to which increased the dose of IV lasix (2) Acute exacerbation of CHF (congestive heart failure) Current Visit: No Status: Acute Assessment and plan: as listed above f/u repeat 2D echo Qualifiers: Congestive heart failure type: diastolic Qualified Code(s): I50.33 - Acute on chronic diastolic (congestive) heart failure (3) Symptomatic anemia Current Visit: No Status: Acute Assessment and plan: Likely secondary to underlying Iron deficiency anemia, however pt has history of GI bleed and given the acute drop, need to rule out GI bleed awaiting stool sample for fecal occult testing Dr. Taylor consulted for further evaluation and possible colonoscopy clear liquid diet at this time Hematology consulted for iron deficiency anemia as pt may require long chain beamer IV iron infusions will continue PO ferrous sulfate at this time s/p 2units PRBC, repeat H&H within acceptable range, continue to closely monitor (4) Chronic kidney disease, stage 3 Current Visit: No Status: Chronic (5) Hypothyroidism Current Visit: No Status: Chronic Assessment and plan: continue home dose of levothyroxine Qualifiers: Hypothyroidism type: unspecified Qualified Code(s): E03.9 - Hypothyroidism , unspecified (6) DVT prophylaxis Current Visit: No Status: Acute Assessment and plan: SCD (7) Atrial fibrillation Current Visit: No Status: Chronic Assessment and plan: Rate controlled with BB not on anticoagulation due to history of GI bleed Qualifiers: Atrial fibrillation type: paroxysmal Qualified Code(s): I48.0 - Paroxysmal atrial fibrillation (8) DVT prophylaxis Current Visit: No Status: Acute (9) COPD (chronic obstructive pulmonary disease) Current Visit: No Status: Chronic Assessment and plan: not in acute exacerbation will continue patient's home meds reports of being on Prednisone 5mg PO qd bipap support as needed Qualifiers: COPD type: chronic bronchitis Chronic bronchitis type: mucopurulent Qualified Code(s): J41.1 - Mucopurulent chronic bronchitis - Subjective Interval history: Patient seen and examined at bedside. Resting in bed and reports of improvement in her respiratory status since admission. Upon arrival, noted to have symptomatic anemia, currently s/p 2units PRBC. Currently staturating well on nasal cannula, however continues to have conversational dyspnea Reports of having a colonscopy a few months ago which was negative for any acute bleeding at the time, and is requesting evaluation by another physician other than Dr. Rojo. Gen surgery consultation requested with Dr. Taylor. Awaiting stool sample for fecal occult testing and patient refusing rectal exam - Constitutional Vitals: Temp Pulse Resp BP Pulse Ox 97.2 F L 70 16 133/81 97 04/03/17 07:55 04/03/17 07:55 04/03/17 07:55 04/03/17 09:51 04/03/17 07:55 General appearance: Present: cooperative, A&O X 3, no acute distress, answers questions appropriately - Head Head exam: Present: atraumatic, normocephalic - Eye Eye exam: Present: conjuntiva pink, sclera anicteric - Respiratory Respiratory exam: Absent: accessory muscle use, respiratory distress, tachypnea (bibasilar rales) - Cardiovascular Cardiovascular exam: Present: irregular rhythm, +S1, +S2. Absent: diastolic murmur, systolic murmur - GI/Abdominal GI/Abdominal exam: Present: normal bowel sounds, soft, no peritoneal signs. Absent: distended, tenderness - Extremities Exam Extremities exam: Present: pedal edema (pitting edema in b/l LE), warm, radial pulses palpable and symmetrical. Absent: calf tenderness - Neurological Exam Neurological exam: Present: alert, oriented X3 - Psychiatric Psychiatric exam: Present: normal affect, normal mood Internal Medicine: Result - Labs CBC & Chem 7: 04/03/17 08:51 04/03/17 08:51 Labs: Short CBC 04/03/17 Range/Units 08:51 WBC 5.7 (4.3-11.1) K/mcL Hgb 7.8 L D (11.5-15.4) g/dL Hct 28.9 L (35.3-44.9) % Plt Count 251 (140-400) K/mcL Neutrophils # 5.6 (1.6-8.9) K/mcL BMP 04/03/17 08:51 Sodium 142 Potassium 4.4 Chloride 92 L Carbon Dioxide 41 H* BUN 23 H Creatinine 1.42 H Glucose 153 H Calcium 9.3 Cardiac Enzymes 04/03/17 Range/Units 08:51 Troponin I 0.03 (0-0.03) ng/mL - ABG Interpretation ABG results: PT/INR, D-dimer PT 11.9 Seconds (9.4-12.1) 04/03/17 08:51 Consult Discharge Plan - Plan Referrals: Francisco Melgar Jr [Primary Care Provider] -
[2017-04-03] MEDS: Iron Sucrose Complex 200 MG in 0.9 % Sodium Chloride 100 ML IVPB SCH (13:09)
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
[2017-04-03] MEDS: Furosemide 40 MG/4 ML VIAL IVP SCH ×2 (16:12→19:53)
--- NOTE | 2017-04-03 16:31 | Electrocardiograph Report ---
[place] [address] Test Date: 2017-04-02 Pat Name: Janay Higginbotham Department: 104 Room: [id number] Gender: F Acid Mixer: : 1940 Requested By: Glenn Conner Order Number: [id number] Reading MD: Crissy Lorenzo Measurements Intervals Bude Rate: 72 P: 33 DE: 103 QRS: -6 QRSD: 131 T: 99 QT: 372 QTc: 397 Interpretive Statements SINUS RHYTHM INTRAVENTRICULAR CONDUCTION DELAY LEFTWARD AXIS Electronically Signed On 04-03-2017 16:29:37 EST by Crissy Lorenzo
--- NOTE | 2017-04-03 18:20 | General Surgery Consult Note ---
Date of Encounter: 04/03/17 Time of Encounter: 13:25 History of Present Illness Consult date: 04/03/17 Requesting physician: Luh Knight History of present illness: This is a delayed note; patient also seen at approximately 1840 hrs. Called to see patient for endoscopic evaluation of recurrent/persistent iron deficiency anemia. The patient has been evaluated by Dr. Rojo in the past but is refusing to have him see her again. I presented to the patient's room [place] [facility] [place] informed her of my intention to complete a mechanical bowel prep in preparation for a colonoscopy in the morning. The patient is insistent that she uderwent endocopic evaluation as recently as one month ago. Review of medical records indicate the patient underwent both an EGD and colonoscopy in May 2016, both performed by Dr Rojo. I am familiar with the patient and she presented to me in approximately 2013 with similar complaints; I believe endoscopy was completed at that time with no significant results The patient has significant medical comorbidities contributing to the difficulty in managing this patient. Those comorbidities include: Diabetes, asthma, COPD, chronic respiratory insufficiency/hypoxia; atrial fibrillation; history of lung cancer and breast cancer; aortic heart valve; pacer/AICD; cardiomyopathy; gastroesophageal reflux disease; history of GI bleed however this may have been exacerbated by chronic anticoagulation administered for atrial fibrillation. The chronic anticoagulation has since been discontinued. I have discussed the situation with Dr Knight. The patient is currently refusing endoscopy. I will defer my efforts to schedule endoscopy for the time being. I will follow with you - a more complete Surgical Note/Consultation will be dictated as the patient's status evolves. Past Med Surg Social Fam HX - Past Medical History Medical history: asthma, atrial fibrillation, cancer, cardiomyopathy, CHF, COPD , GERD, GI bleed, thyroid disease, valvular heart disease, other Psychiatric history: anxiety, depression - Past Surgical History Surgical History: appendectomy, breast surgery, cancer surgery, heart valve replacement, hysterectomy, pacemaker/AICD - Social History Smoking Status: Former smoker Smokeless Tobacco Status: No Alcohol use: none Drug use: none - Family History Mother Family Member Ethnicity: Non- Living Status: Hx Family Cardiac Disorders: No Hx Family Respiratory Disorders: No Hx Family Cancer: Yes Hx Family GI Disorders: No Hx Family Endocrine Disorder: No Hx Family Neuromuscular Disorders: No Hx Family Neurologic Disorders: No Hx Family HEENT Disorders: No Hx Family Autoimmune Disorders: No Father Living Status: Hx Family Cardiac Disorders: Yes Hx Family Respiratory Disorders: No Hx Family Cancer: Yes Hx Family GI Disorders: No Hx Family Endocrine Disorder: No Hx Family Neuromuscular Disorders: No Hx Family Neurologic Disorders: No Hx Family HEENT Disorders: No Hx Family Autoimmune Disorders: No Medications and Allergies Budesonide/Formoterol 160/4.5 [Symbicort] 2 puff IH BID 01/30/15 [History] FLUoxetine HCl [Prozac] 20 mg PO BID 01/30/15 [History] Oxycodone HCl/Acetaminophen [Percocet 10-325 mg Tablet] 1 tab PO Q6H PRN [History] Allopurinol [Zyloprim 300 MG] 300 mg PO DAILY 01/12/16 [History] Ropinirole HCl [Requip] 4 mg PO HS 01/12/16 [History] Calcium Carbonate [Calcium] 1,500 mg PO BID 04/22/16 [History] Ipratropium/Albuterol Neb [Duoneb] 3 ml IH Q6HR PRN 04/22/16 [History] Levothyroxine [Synthroid] 50 mcg PO DAILY 04/22/16 [History] Oxygen 4 l NS CONT 04/22/16 [History] Folic Acid 1 mg PO DAILY 05/28/16 [History] Ferrous Sulfate 325 mg PO BIDWM #60 tablet 06/06/16 [Rx] Ranitidine HCl [Acid Product Development Manager] 150 mg PO BID 07/12/16 [History] Albuterol Sulfate [Ventolin Hfa] 1 - 2 puff IH Q4-6H PRN 10/14/16 [History] Potassium Chloride [K-Tab ER] 40 meq PO QPM 10/14/16 [History] Potassium Chloride [K-Tab ER] 60 meq PO QAM 10/14/16 [History] Umeclidinium [place] [Incruse Ellipta] 1 puff IH DAILY 10/14/16 [History] Amiodarone [Cordarone] 200 mg PO BID 12/29/16 [History] Furosemide [Lasix] 40 mg PO QPM 12/29/16 [History] Furosemide [Lasix] 80 mg PO QAM 12/29/16 [History] Sacubitril/Valsartan 24/26 mg [Entresto 24 mg-26 mg Tablet] 1 tab PO BID [History] predniSONE [PredniSONE] 5 mg PO DAILY 04/03/17 [History] 3 Allergy/AdvReac Type Severity Reaction Status Date / Time albuterol Allergy Drowsy Verified 10/13/16 14:47 gabapentin Allergy Hallucinati Verified 10/13/16 14:47 ng Penicillins Allergy Hives Verified 10/13/16 14:47 Sulfa (Sulfonamide Allergy Hives Verified 10/13/16 14:47 Antibiotics) jello AdvReac Nausea Uncoded 10/13/16 14:47 Review of Systems All systems PM: A 10-system review of systems was performed and is negative for pertinent findings except as documented above in the HPI. General Surgery Exam Initial Vital Signs Temp Pulse Resp BP Pulse Ox 98.1 F 75 16 136/67 97 04/02/17 18:01 04/02/17 18:01 04/02/17 18:01 04/02/17 18:01 04/02/17 18:01 Exam Initial Vital Signs Temp Pulse Resp BP Pulse Ox 98.1 F 75 16 136/67 97 04/02/17 18:01 04/02/17 18:01 04/02/17 18:01 04/02/17 18:01 04/02/17 18:01 Results - Labs 04/03/17 08:51 04/03/17 08:51 Abnormal lab results RBC 3.70 M/mcL (3.82-4.97) L 04/03/17 08:51 Hgb 7.8 g/dL (11.5-15.4) L D 04/03/17 08:51 Hct 28.9 % (35.3-44.9) L 04/03/17 08:51 MCV 78.1 fL (83.0-100.0) L 04/03/17 08:51 MCH 21.1 pg (28.0-33.3) L 04/03/17 08:51 MCHC 27.0 g/dL (31.6-35.5) L 04/03/17 08:51 RDW 17.9 % (11.5-14.5) H 04/03/17 08:51 Lymphocytes # 0.1 K/mcL (0.6-4.6) L 04/03/17 08:51 Nucleated RBCs/100 WBC 1.1 /100 WBC (0) H 04/03/17 08:51 Polychromasia 1+ (Not Present) A 04/03/17 08:51 Hypochromasia Present (Not Present) A 04/03/17 08:51 Anisocytosis 1+ (Not Present) A 04/03/17 08:51 Chloride 92 mEq/L (98-109) L 04/03/17 08:51 Carbon Dioxide 41 mEq/L (19-29) H* 04/03/17 08:51 BUN 23 mg/dL (7-20) H 04/03/17 08:51 Creatinine 1.42 mg/dL (0.57-1.11) H 04/03/17 08:51 Est GFR ( Amer) 43 (> 60) L 04/03/17 08:51 Est GFR (Non-Af Amer) 36 (> 60) L 04/03/17 08:51 Glucose 153 mg/dL (70-99) H 04/03/17 08:51 POC Glucose 188 (58-89) H 04/03/17 06:34 Calculated Osmolality 301 (280-300) H 04/03/17 08:51 Iron 8 mcg/dL (50-170) L 04/02/17 22:42 % Saturation 2 % (15-50) L 04/02/17 22:42 B-Natriuretic Peptide 1501 pg/mL (0-100) H 04/02/17 18:58 TSH 5.585 mcIU/mL (0.350-4.840) H 04/02/17 18:58 Diabetes panel 04/03/17 Range/Units 08:51 Sodium 142 (136-145) mEq/L Potassium 4.4 (3.5-4.5) mEq/L Chloride 92 L (98-109) mEq/L Carbon Dioxide 41 H* (19-29) mEq/L BUN 23 H (7-20) mg/dL Creatinine 1.42 H (0.57-1.11) mg/dL Glucose 153 H (70-99) mg/dL Calcium 9.3 (8.6-10.8) mg/dL Calcium panel 04/03/17 Range/Units 08:51 Calcium 9.3 (8.6-10.8) mg/dL Pituitary panel 04/03/17 Range/Units 08:51 Sodium 142 (136-145) mEq/L Potassium 4.4 (3.5-4.5) mEq/L Chloride 92 L (98-109) mEq/L Carbon Dioxide 41 H* (19-29) mEq/L BUN 23 H (7-20) mg/dL Creatinine 1.42 H (0.57-1.11) mg/dL Glucose 153 H (70-99) mg/dL Calcium 9.3 (8.6-10.8) mg/dL Adrenal panel 04/03/17 Range/Units 08:51 Sodium 142 (136-145) mEq/L Potassium 4.4 (3.5-4.5) mEq/L Chloride 92 L (98-109) mEq/L Carbon Dioxide 41 H* (19-29) mEq/L BUN 23 H (7-20) mg/dL Creatinine 1.42 H (0.57-1.11) mg/dL Glucose 153 H (70-99) mg/dL Calcium 9.3 (8.6-10.8) mg/dL All other labs normal. Consult Discharge Plan - Plan Referrals: Francisco Melgar Jr [Primary Care Provider] -
[2017-04-03 19:14] LABS: Hematocrit 27.4 % (35.3-44.9); Hemoglobin 7.5 g/dL (11.5-15.4)
[2017-04-03] MEDS: rOPINIRole 1 MG TABLET PO SCH (21:43)
[2017-04-04] MEDS: Ipratropium/Albuterol Neb 3 ML IH SCH ×6 (03:38→23:22)
[2017-04-04 04:06] LABS: Basophils % 0.1 %; Lymphocytes % 6.1 %; Red Cell Distribution Width 18.5 % (11.5-14.5)
[2017-04-04 04:08] LABS: Eosinophils % 0.1 %; Hematocrit 28.5 % (35.3-44.9); Hemoglobin 7.5 g/dL (11.5-15.4); Immature Granulocytes % 1.7 % (0-4); Lymphocytes # 0.5 K/mcL (0.6-4.6); Mean Corpuscular HGB Conc 26.3 g/dL (31.6-35.5); Mean Corpuscular Hemoglobin 20.9 pg (28.0-33.3); Mean Corpuscular Volume 79.4 fL (83.0-100.0); Mean Platelet Volume 9.7 fL (9.4-12.4); Monocytes # 0.7 K/mcL (0.0-1.3); Monocytes % 8.1 %; Nucleated Red Blood Cells 0.7 /100 WBC (0); Platelet Count 235 K/mcL (140-400); Red Blood Count 3.59 M/mcL (3.82-4.97); Segmented Neutrophils % 83.9 %
[2017-04-04 04:23] LABS: Calcium 8.9 mg/dL (8.6-10.8); Magnesium 1.9 mg/dL (1.6-2.6); Phosphorous 3.9 mg/dL (2.3-4.7)
[2017-04-04 06:43] LABS: Anisocytosis 1+ (Not Present); Hypochromasia Present (Not Present); Microcytosis Present (Not Present); Platelet Estimate Normal (Normal); Polychromasia 1+ (Not Present)
[2017-04-04] MEDS: Furosemide 40 MG/4 ML VIAL IVP SCH (08:22)
[2017-04-04] MEDS: *HR* Amiodarone 200 MG TABLET PO SCH (08:30)
[2017-04-04] MEDS: SACUBITRIL/VALSARTAN 24/26 MG TABLET PO SCH ×2 (08:30→20:40)
[2017-04-04] MEDS: predniSONE 5 MG TABLET PO SCH (08:31)
[2017-04-04] MEDS: FLUoxetine 20 MG CAPSULE PO SCH ×2 (08:31→20:38)
[2017-04-04] MEDS: *HR* OxyCODONE/APAP 10/325 TABLET PO PRN ×2 (08:32→17:36)
[2017-04-04] MEDS: Iron Sucrose Complex 200 MG in 0.9 % Sodium Chloride 100 ML IVPB SCH (08:43)
[2017-04-04] MEDS: Budesonide/Formoterol 160/4.5 MDI IH SCH ×2 (10:17→20:29)
--- NOTE | 2017-04-04 17:37 | General Surgery Progress Note ---
Date of Encounter: 04/04/17 Time of Encounter: 17:20 Subjective Patient reports: feels better Narrative: General Surgery - patient feeling better; likely due to increased H&H to 7.5 and 28.5 following transfusion 2 units packed red cells. Patient continues to refuse to consider upper endoscopy or colonoscopy. Blood pressure has has been low today, ranging 82/40 - 88/42. Heart rate 49- 56; respiratory rate 15-17 Abdomen: Soft, nontender. No detected intra-abdominal masses. We will continue to follow with you, however, I currently have nothing to offer other than repeat EGD and / or colonoscopy Hematology has been consulted. May wish to consider additional transfusion to address the patient's hypotension Objective Vital Signs - Last 8 Hours Temp Pulse Resp BP Pulse Ox 04/04/17 15:56 98.0 F 49 15 88/42 95 04/04/17 11:38 98.1 F 56 15 82/48 95 04/04/17 10:19 16 95 Intake and Output 04/04/17 04/04/17 04/04/17 07:59 15:59 23:59 Intake Total 0 / 0 550 / 550 Output Total 300 / 300 0 / 0 Balance -300 / -300 550 / 550 Intake: IV Fluids 110 / 110 Venofer 200 MG In 0.9 % Sodium 110 / 110 Chloride 100 ML @ 200 mls/hr IVPB DAILY [facility] Rx#:[id number] Oral 0 / 0 440 / 440 Output: Urine 300 / 300 0 / 0 Other: Meal Lunch Percent of Meal Consumed 30% Weight 79.8 kg Blood Glucose* 86 103 Patient Weight 04/04/17 23:59 Weight 79.8 kg - Labs 04/04/17 03:27 04/04/17 03:27 Diabetes panel 04/04/17 Range/Units 03:27 Sodium 140 (136-145) mEq/L Potassium 4.0 (3.5-4.5) mEq/L Chloride 92 L (98-109) mEq/L Carbon Dioxide 41 H* (19-29) mEq/L BUN 29 H (7-20) mg/dL Creatinine 1.55 H (0.57-1.11) mg/dL Glucose 93 (70-99) mg/dL Calcium 8.9 (8.6-10.8) mg/dL Calcium panel 04/04/17 Range/Units 03:27 Calcium 8.9 (8.6-10.8) mg/dL Phosphorus 3.9 (2.3-4.7) mg/dL Pituitary panel 04/04/17 Range/Units 03:27 Sodium 140 (136-145) mEq/L Potassium 4.0 (3.5-4.5) mEq/L Chloride 92 L (98-109) mEq/L Carbon Dioxide 41 H* (19-29) mEq/L BUN 29 H (7-20) mg/dL Creatinine 1.55 H (0.57-1.11) mg/dL Glucose 93 (70-99) mg/dL Calcium 8.9 (8.6-10.8) mg/dL Adrenal panel 04/04/17 Range/Units 03:27 Sodium 140 (136-145) mEq/L Potassium 4.0 (3.5-4.5) mEq/L Chloride 92 L (98-109) mEq/L Carbon Dioxide 41 H* (19-29) mEq/L BUN 29 H (7-20) mg/dL Creatinine 1.55 H (0.57-1.11) mg/dL Glucose 93 (70-99) mg/dL Calcium 8.9 (8.6-10.8) mg/dL Consult Discharge Plan - Plan Referrals: Francisco Melgar Jr [Primary Care Provider] -
--- NOTE | 2017-04-04 18:02 | Internal Med Progress Note ---
Date of Encounter: 04/04/17 Time of Encounter: 13:00 - Assessment and plan (1) Systolic CHF, acute Current Visit: Yes Status: Acute (2) Acute lower GI bleeding Current Visit: No Status: Acute (3) Atrial fibrillation Current Visit: No Status: Chronic Qualifiers: Atrial fibrillation type: chronic Qualified Code(s): I48.2 - Chronic atrial fibrillation (4) H/O aortic valve replacement Current Visit: No Status: Chronic (5) History of implantable cardiac defibrillator (ICD) Current Visit: No Status: Chronic (6) COPD (chronic obstructive pulmonary disease) Current Visit: No Status: Chronic Qualifiers: COPD type: chronic bronchitis Chronic bronchitis type: mucopurulent Qualified Code(s): J41.1 - Mucopurulent chronic bronchitis (7) Iron deficiency anemia secondary to blood loss (chronic) Current Visit: Yes Status: Acute Assessment and plan: PT CONTINUES TO REFUSE ENDOSCOPY, SHE IS S/P 2U PRBC. I'M HESITANT TO TRANSFUSE WITH HGB REMAINING ABOVE 7 DUE TO PRESENCE OF RALES ON LUNG EXAMINATION. WILL CONTINUE TO MONITOR H/H. IF HGB DROPS BELOW 7, THEN SHE MIGHT NEED ANOTHER UNIT OR PRBC. GEN SURGERY FOLLOWING, RECOMMENDATIONS NOTED. ACUTE CHF, DIURETICS HELD DUE TO HYPOTENSION, CONTINUE FLUID RESTRICTION, WILL ATTEMPT TO START DIURETICS IN AM IF BP IMPROVES. SHE IS ALSO BRADYCARDIC, WILL DECREASE AMIODARONE AND MONITOR CONTINUE DUONEBS AND SUPPLEMENTAL OXYGEN. - Subjective Interval history: PT STILL REFUSING ENDOSCOPY SAYING SHE HAD ONE FEW MONTHS AGO - Constitutional Vitals: Temp Pulse Resp BP Pulse Ox 98.0 F 49 178 88/42 100 04/04/17 15:56 04/04/17 15:56 04/04/17 15:56 04/04/17 15:56 04/04/17 15:56 General appearance: Present: cooperative, A&O X 3, no acute distress, answers questions appropriately - Head Head exam: Present: atraumatic, normocephalic - Eye Eye exam: Present: PERRL, conjuntiva pink, sclera anicteric Pupils: Present: PERRL - Neck Neck exam general surgery: Present: supple, trachea midline. Absent: lymphadenopathy - Respiratory Respiratory exam: Present: decreased breath sounds, rales. Absent: accessory muscle use, CTAB, rhonchi, wheezes - Cardiovascular Cardiovascular exam: Present: RRR, +S1, +S2. Absent: diastolic murmur, gallop, rubs, systolic murmur - GI/Abdominal GI/Abdominal exam: Present: normal bowel sounds, soft, no peritoneal signs. Absent: distended, tenderness - Extremities Exam Extremities exam: Present: warm, radial pulses palpable and symmetrical. Absent : calf tenderness, cyanotic, pedal edema - Neurological Exam Neurological exam: Present: CN II-XII intact, oriented X3, no focal deficits. Absent: pronater drift, facial droop, speech deficit - Skin Skin exam: Present: dry, intact Internal Medicine: Result - Labs CBC & Chem 7: 04/04/17 03:27 04/04/17 03:27 Labs: Short CBC 04/03/17 04/04/17 Range/Units 18:56 03:27 WBC 8.3 (4.3-11.1) K/mcL Hgb 7.5 L 7.5 L (11.5-15.4) g/dL Hct 27.4 L 28.5 L (35.3-44.9) % Plt Count 235 (140-400) K/mcL Neutrophils # 7.0 (1.6-8.9) K/mcL BMP 04/04/17 03:27 Sodium 140 Potassium 4.0 Chloride 92 L Carbon Dioxide 41 H* BUN 29 H Creatinine 1.55 H Glucose 93 Calcium 8.9 - ABG Interpretation ABG results: PT/INR, D-dimer PT 11.9 Seconds (9.4-12.1) 04/03/17 08:51 Consult Discharge Plan - Plan Referrals: Francisco Melgar Jr [Primary Care Provider] -
[2017-04-04 18:51] LABS: Hematocrit 28.7 % (35.3-44.9); Hemoglobin 7.6 g/dL (11.5-15.4)
[2017-04-04] MEDS: rOPINIRole 1 MG TABLET PO SCH (20:38)
[2017-04-05 02:01] LABS: Basophils % 0.1 %; Mean Platelet Volume 9.7 fL (9.4-12.4); Red Cell Distribution Width 18.7 % (11.5-14.5)
[2017-04-05 02:03] LABS: Eosinophils % 0.5 %; Hematocrit 28.6 % (35.3-44.9); Hemoglobin 7.7 g/dL (11.5-15.4); Lymphocytes # 0.5 K/mcL (0.6-4.6); Mean Corpuscular HGB Conc 26.9 g/dL (31.6-35.5); Mean Corpuscular Hemoglobin 21.3 pg (28.0-33.3); Monocytes # 0.6 K/mcL (0.0-1.3); Neutrophils # 6.1 K/mcL (1.6-8.9); Nucleated Red Blood Cells 1.4 /100 WBC (0); Platelet Count 220 K/mcL (140-400); Red Blood Count 3.62 M/mcL (3.82-4.97); Segmented Neutrophils % 82.4 %
[2017-04-05 02:14] LABS: Calcium 8.9 mg/dL (8.6-10.8); Potassium 4.6 mEq/L (3.5-4.5)
[2017-04-05 02:31] LABS: Platelet Estimate Normal (Normal)
[2017-04-05 02:32] LABS: Anisocytosis 1+ (Not Present); Poikilocytosis 1+ (Not Present); Polychromasia 1+ (Not Present)
[2017-04-05] MEDS: Ipratropium/Albuterol Neb 3 ML IH SCH ×6 (04:05→23:43)
[2017-04-05] MEDS: Budesonide/Formoterol 160/4.5 MDI IH SCH ×2 (08:06→20:43)
[2017-04-05 08:21] LABS: Hematocrit 28.5 % (35.3-44.9); Hemoglobin 7.6 g/dL (11.5-15.4)
[2017-04-05] MEDS ORDERED: Iron Sucrose Complex 200 MG in 0.9 % Sodium Chloride 100 ML IVPB ONE (08:48)
[2017-04-05] MEDS: Folic Acid 1 MG TABLET PO SCH (09:00)
[2017-04-05] MEDS ORDERED: Furosemide 40 MG/4 ML VIAL IVP SCH (09:00)
[2017-04-05] MEDS: FLUoxetine 20 MG CAPSULE PO SCH ×2 (09:00→20:30)
[2017-04-05] MEDS: (Umeclidinium Bromide [Incruse Ellipta] 1 PUFF) IH SCH (09:01)
[2017-04-05] MEDS: predniSONE 5 MG TABLET PO SCH (09:01)
[2017-04-05] MEDS: Cyanocobalamin (B-12) 1,000 MCG TABLET PO SCH (09:01)
[2017-04-05] MEDS: *HR* Amiodarone 200 MG TABLET PO SCH (09:01)
--- NOTE | 2017-04-05 11:09 | General Surgery Progress Note ---
Date of Encounter: 04/05/17 Time of Encounter: 11:02 Subjective Narrative: General Surgery - the patient is c/o "feeling skaky" Afeb, BP slightly better, 100/55; HR 55-57; RR 16-20 H&H stable at 7.6/28.5 with repeat 7.7/28.6. Platelets stable 220,000; nucleated RBC elevated 1.4 Abd soft, nontender; stool black possibly due to iron administration v GI bleeding. The patient is aware endoscopy is recommended but continues to refuse both upper and lower endoscopy. BUN and Cr elevated - BUN 33 and 2.19. eGFR diminished to 22. The renal failure is likely contributing to the patient's poor medical status and recurrent anemia. Objective Vital Signs - Last 8 Hours Temp Pulse Resp BP Pulse Ox 04/05/17 08:06 16 96 04/05/17 07:32 97.8 F 57 18 100/55 100 04/05/17 03:38 97.8 F 55 20 102/52 97 Intake and Output 04/04/17 04/05/17 04/05/17 23:59 07:59 15:59 Intake Total 240 / 240 0 / 0 240 / 240 Output Total 100 / 100 Balance 240 / 240 -100 / -100 240 / 240 Intake: Oral 240 / 240 0 / 0 240 / 240 Output: Urine 100 / 100 Other: Meal Dinner Breakfast Percent of Meal Consumed 95% 100% # Voids 0 0 Weight 81 kg Blood Glucose* 131 105 Patient Weight 04/05/17 23:59 Weight 81 kg - Labs 04/05/17 07:35 04/05/17 01:42 Diabetes panel 04/05/17 Range/Units 01:42 Sodium 136 (136-145) mEq/L Potassium 4.6 H (3.5-4.5) mEq/L Chloride 91 L (98-109) mEq/L Carbon Dioxide 35 H (19-29) mEq/L BUN 33 H (7-20) mg/dL Creatinine 2.19 H (0.57-1.11) mg/dL Glucose 103 H (70-99) mg/dL Calcium 8.9 (8.6-10.8) mg/dL Calcium panel 04/05/17 Range/Units 01:42 Calcium 8.9 (8.6-10.8) mg/dL Pituitary panel 04/05/17 Range/Units 01:42 Sodium 136 (136-145) mEq/L Potassium 4.6 H (3.5-4.5) mEq/L Chloride 91 L (98-109) mEq/L Carbon Dioxide 35 H (19-29) mEq/L BUN 33 H (7-20) mg/dL Creatinine 2.19 H (0.57-1.11) mg/dL Glucose 103 H (70-99) mg/dL Calcium 8.9 (8.6-10.8) mg/dL Adrenal panel 04/05/17 Range/Units 01:42 Sodium 136 (136-145) mEq/L Potassium 4.6 H (3.5-4.5) mEq/L Chloride 91 L (98-109) mEq/L Carbon Dioxide 35 H (19-29) mEq/L BUN 33 H (7-20) mg/dL Creatinine 2.19 H (0.57-1.11) mg/dL Glucose 103 H (70-99) mg/dL Calcium 8.9 (8.6-10.8) mg/dL Consult Discharge Plan - Plan Referrals: Francisco Melgar Jr [Primary Care Provider] -
--- NOTE | 2017-04-05 15:44 | Internal Med Progress Note ---
Date of Encounter: 04/05/17 Time of Encounter: 11:10 - Assessment and plan (1) Acute on chronic respiratory failure with hypoxia and hypercapnia Current Visit: Yes Status: Acute Assessment and plan: Due to anemia and acute congestive heart failure. Continue O2 supplementation. Continue to treat underlying conditions. (2) Acute exacerbation of CHF (congestive heart failure) Current Visit: Yes Status: Acute Assessment and plan: Patient with acute combined congestive heart failure. Does have lower extremity edema but renal function worsening with creatinine rising up to 2.19. We will hold Lasix for now and reassess in the morning. High risk for complications Qualifiers: Congestive heart failure type: combined Qualified Code(s): I50.43 - Acute on chronic combined systolic (congestive) and diastolic (congestive) heart failure (3) [id number]-[id number] kidney injury Current Visit: Yes Status: Acute Assessment and plan: Patient with acute kidney injury on chronic kidney disease. Creatinine 2.19. Will hold diuretics and entresto. Follow renal function closely. Qualifiers: Acute renal failure type: unspecified Chronic kidney disease stage: stage 3 (moderate) Qualified Code(s): N17.9 - Acute kidney failure, unspecified; N18.3 - Chronic kidney disease, stage 3 (moderate) (4) Symptomatic anemia Current Visit: Yes Status: Acute Assessment and plan: Acute on chronic. Hemoglobin levels have been stable since last transfusion. Surgery input appreciated. Patient still refusing endoscopy. We will continue to monitor blood counts. We will discuss with hematology about indication for bone marrow biopsy as patient has had chronic anemia and has not been found to have any acute causes of GI bleed so far despite multiple endoscopies. Patient does have severe iron deficiency has received iron sucrose. We will continue iron sucrose for another dose today. (5) Atrial fibrillation Current Visit: Yes Status: Chronic Assessment and plan: Rate controlled. Currently not on anticoagulation due to anemia and prior rectus sheath hematoma. Qualifiers: Atrial fibrillation type: paroxysmal Qualified Code(s): I48.0 - Paroxysmal atrial fibrillation (6) COPD (chronic obstructive pulmonary disease) Current Visit: Yes Status: Chronic Assessment and plan: Doing better and not in acute exacerbation at this time. Continue bronchodilators and home dose of prednisone. Qualifiers: COPD type: chronic bronchitis Chronic bronchitis type: mucopurulent Qualified Code(s): J41.1 - Mucopurulent chronic bronchitis (7) Chronic kidney disease, stage 3 Current Visit: Yes Status: Chronic (8) Hypotension Current Visit: No Status: Acute Assessment and plan: Blood pressure has been low all through the day yesterday. It has improved this morning. Will stop antihypertensives. Monitor blood pressure closely. Qualifiers: Hypotension type: hypotension due to drug Qualified Code(s): I95.2 - Hypotension due to drugs - Subjective Interval history: Patient denies any blood in her stools. Feels weak and tired. Denies any chest pain. Again refuses any kind of scope at this time. No abdominal pain. - Constitutional Vitals: Temp Pulse Resp BP Pulse Ox 97.8 F 57 16 100/55 93 04/05/17 07:32 04/05/17 07:32 04/05/17 15:37 04/05/17 07:32 04/05/17 15:37 General appearance: Present: cooperative, mild distress, A&O X 3, answers questions appropriately - Neck Neck exam general surgery: Present: supple, trachea midline. Absent: lymphadenopathy - Respiratory Respiratory exam: Present: decreased breath sounds (At both bases), rales. Absent: accessory muscle use, rhonchi, wheezes - Cardiovascular Cardiovascular exam: Present: RRR, +S1, +S2. Absent: diastolic murmur, gallop, rubs, systolic murmur - GI/Abdominal GI/Abdominal exam: Present: normal bowel sounds, soft, no peritoneal signs. Absent: distended, tenderness - Extremities Exam Extremities exam: Present: pedal edema, warm, radial pulses palpable and symmetrical. Absent: calf tenderness, cyanotic - Neurological Exam Neurological exam: Present: alert, oriented X3, no focal deficits. Absent: facial droop, speech deficit - Skin Skin exam: Present: dry, intact, pallor Internal Medicine: Result - Labs CBC & Chem 7: 04/05/17 07:35 04/05/17 01:42 Labs: Short CBC 04/04/17 04/05/17 04/05/17 Range/Units 18:41 01:42 07:35 WBC 7.4 (4.3-11.1) K/mcL Hgb 7.6 L 7.7 L 7.6 L (11.5-15.4) g/dL Hct 28.7 L 28.6 L 28.5 L (35.3-44.9) % Plt Count 220 (140-400) K/mcL Neutrophils # 6.1 (1.6-8.9) K/mcL BMP 04/05/17 01:42 Sodium 136 Potassium 4.6 H Chloride 91 L Carbon Dioxide 35 H BUN 33 H Creatinine 2.19 H Glucose 103 H Calcium 8.9 - ABG Interpretation ABG results: PT/INR, D-dimer PT 11.9 Seconds (9.4-12.1) 04/03/17 08:51 Consult Discharge Plan - Plan Referrals: Francisco Melgar Jr [Primary Care Provider] -
[2017-04-05] MEDS: rOPINIRole 1 MG TABLET PO SCH (20:30)
[2017-04-06] MEDS: Ipratropium/Albuterol Neb 3 ML IH SCH ×6 (04:05→23:00)
[2017-04-06 04:50] LABS: Basophils % 0.1 %
[2017-04-06 04:51] LABS: Eosinophils # 0.1 K/mcL (0.0-0.6); Eosinophils % 0.9 %; Hematocrit 27.7 % (35.3-44.9); Hemoglobin 7.5 g/dL (11.5-15.4); Immature Granulocytes % 2.2 % (0-4); Lymphocytes % 5.8 %; Mean Corpuscular HGB Conc 27.1 g/dL (31.6-35.5); Mean Corpuscular Hemoglobin 21.4 pg (28.0-33.3); Mean Corpuscular Volume 78.9 fL (83.0-100.0); Mean Platelet Volume 9.9 fL (9.4-12.4); Monocytes # 0.4 K/mcL (0.0-1.3); Monocytes % 5.1 %; Neutrophils # 6.6 K/mcL (1.6-8.9); Nucleated Red Blood Cells 2.7 /100 WBC (0); Platelet Count 195 K/mcL (140-400); Red Blood Count 3.51 M/mcL (3.82-4.97); Red Cell Distribution Width 19.2 % (11.5-14.5); Segmented Neutrophils % 85.9 %
[2017-04-06 04:54] LABS: Lymphocytes # 0.5 K/mcL (0.6-4.6)
[2017-04-06 05:16] LABS: Anisocytosis 1+ (Not Present); Hypochromasia Present (Not Present); Platelet Estimate Normal (Normal)
[2017-04-06 05:21] LABS: Calcium 9.3 mg/dL (8.6-10.8); Potassium 4.5 mEq/L (3.5-4.5)
[2017-04-06] MEDS: Folic Acid 1 MG TABLET PO SCH (09:39)
[2017-04-06] MEDS: FLUoxetine 20 MG CAPSULE PO SCH ×2 (09:39→21:17)
[2017-04-06] MEDS: predniSONE 5 MG TABLET PO SCH (09:39)
[2017-04-06] MEDS: *HR* Amiodarone 200 MG TABLET PO SCH (09:39)
[2017-04-06] MEDS: Cyanocobalamin (B-12) 1,000 MCG TABLET PO SCH (09:39)
[2017-04-06] MEDS: (Umeclidinium Bromide [Incruse Ellipta] 1 PUFF) IH SCH (09:40)
--- NOTE | 2017-04-06 10:35 | Nephrology Consult Note ---
Date of Encounter: 04/06/17 Time of Encounter: 09:15 Assessment and Plan (1) SON (acute kidney injury) Current Visit: No Status: Acute SON on CKD stage IIIb with suspected etiology most likely both hemodynamic and prerenal. She has relatively low BPs affecting renal perfusion. 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 I recommend holding diuretics as she appears slightly pre-renal: hold diuretics for now. Given her hx of CHF, I would stress caution with 0.9% saline for volume expansion, but instead recommend Albumin 25gm x3 doses. This will help both her hypotension and ideally improve renal perfusion/SCr plus ideally avoid the risks of exacerbating her CHF. She has no LE edema noted today on exam. Anemia: suspect multifactorial including severe iron def. She has refused endoscopy. I'll presume that there is also a component of her anemia related to CKD, which would be lópez to assume since she has CKD stage IIIb-IV. I described the R/B/I and SE profile of TANIYA medications such as EPO and Aranesp. I will start Aranesp 60mcq weekly while here and then as an outpt, she'll need close follow up to titrate this dose to more of a q4 week pattern for patient convenience. She will also need more IV iron as an outpt and is s/p Venofer x1 thus far. Continue to follow a renal protective strategy and avoid NSAIDs, Bactrim, IV contrast and dose renally cleared Rx by GFR. I discussed her care with the floor RN, and also discussed recommendations with the Hospitalist. Thank you for consulting [facility], and will continue to follow with you. (2) Iron deficiency anemia Current Visit: Yes Status: Acute Qualifiers: Iron deficiency anemia type: other iron deficiency Qualified Code(s): D50.8 - Other iron deficiency anemias (3) Anemia in chronic kidney disease (CKD) Current Visit: Yes Status: Acute Qualifiers: Chronic kidney disease stage: stage 3 (moderate) Qualified Code(s): N18.3 - Chronic kidney disease, stage 3 (moderate); D63.1 - Anemia in chronic kidney disease; D63.1 - Anemia in chronic kidney disease (4) Chronic kidney disease, stage 3 Current Visit: Yes Status: Chronic (5) T2DM (type 2 diabetes mellitus) Current Visit: Yes Status: Chronic As per primary. Qualifiers: Diabetes mellitus complication status: without complication Diabetes mellitus alf insulin use: without dedicated intermodal truck driver use Qualified Code(s): E11.9 - Type 2 diabetes mellitus without complications (6) Metabolic alkalosis with respiratory acidosis Current Visit: No Status: Chronic Acute on Chronic, related to her COPD and diuretics. See above. History of Present Illness - Reason for Consult Consult date: 04/06/17 Acute Kidney Injury, Chronic Kidney Disease Requesting physician: Delano Kraft - Chief Complaint SON on CKD - History of Present Illness Janay Higginbotham is a very pleasant 76 y/o female with a pmh of CKD stage IIIb-IV, COPD, chronic metabolic alkaosis, hx of CHF, T2DM, frequent hospitalizations and et al who presented with CHF exacerbation. Nephrology was consulted today for SON on CKD. She was started on IV diuretics appropriately but over the last few days her UOP has improved and so has her peripheral edema (she affirmed the latter), which suggests this SON is prerenal. She denied N/V/ D or F/C or dysuria. She denied CP and said her shortness of breath has improved. She denied use of OTC NSAIDs. She follows with me in my CKD clinic. She said that she did not want endoscopy, and she voiced that she has not seen any external bleeding. She has received IV iron thus far and 2 units of PRBCs, she said. She said she thought she was going home today (Friday -- and I recommended to her that she should not discharge until her renal function starts to improve). Past Med Surg Social Fam HX - Past Medical History Medical history: asthma, atrial fibrillation, cancer, cardiomyopathy, CHF, COPD , GERD, GI bleed, thyroid disease, valvular heart disease, other Psychiatric history: anxiety, depression - Past Surgical History Surgical History: appendectomy, breast surgery, cancer surgery, heart valve replacement, hysterectomy, pacemaker/AICD - Social History Smoking Status: Former smoker Smokeless Tobacco Status: No Alcohol use: none Drug use: none - Family History Mother Family Member Ethnicity: Non- Living Status: Hx Family Cardiac Disorders: No Hx Family Respiratory Disorders: No Hx Family Cancer: Yes Hx Family GI Disorders: No Hx Family Endocrine Disorder: No Hx Family Neuromuscular Disorders: No Hx Family Neurologic Disorders: No Hx Family HEENT Disorders: No Hx Family Autoimmune Disorders: No Father Living Status: Hx Family Cardiac Disorders: Yes Hx Family Respiratory Disorders: No Hx Family Cancer: Yes Hx Family GI Disorders: No Hx Family Endocrine Disorder: No Hx Family Neuromuscular Disorders: No Hx Family Neurologic Disorders: No Hx Family HEENT Disorders: No Hx Family Autoimmune Disorders: No Medications and Allergies Budesonide/Formoterol 160/4.5 [Symbicort] 2 puff IH BID 01/30/15 [History] FLUoxetine HCl [Prozac] 20 mg PO BID 01/30/15 [History] Oxycodone HCl/Acetaminophen [Percocet 10-325 mg Tablet] 1 tab PO Q6H PRN [History] Allopurinol [Zyloprim 300 MG] 300 mg PO DAILY 01/12/16 [History] Ropinirole HCl [Requip] 4 mg PO HS 01/12/16 [History] Calcium Carbonate [Calcium] 1,500 mg PO BID 04/22/16 [History] Ipratropium/Albuterol Neb [Duoneb] 3 ml IH Q6HR PRN 04/22/16 [History] Levothyroxine [Synthroid] 50 mcg PO DAILY 04/22/16 [History] Oxygen 4 l NS CONT 04/22/16 [History] Folic Acid 1 mg PO DAILY 05/28/16 [History] Ferrous Sulfate 325 mg PO BIDWM #60 tablet 06/06/16 [Rx] Ranitidine HCl [Acid Airline Operations Agent] 150 mg PO BID 07/12/16 [History] Albuterol Sulfate [Ventolin Hfa] 1 - 2 puff IH Q4-6H PRN 10/14/16 [History] Potassium Chloride [K-Tab ER] 40 meq PO QPM 10/14/16 [History] Potassium Chloride [K-Tab ER] 60 meq PO QAM 10/14/16 [History] Umeclidinium [place] [Incruse Ellipta] 1 puff IH DAILY 10/14/16 [History] Amiodarone [Cordarone] 200 mg PO BID 12/29/16 [History] Furosemide [Lasix] 40 mg PO QPM 12/29/16 [History] Furosemide [Lasix] 80 mg PO QAM 12/29/16 [History] Sacubitril/Valsartan 24/26 mg [Entresto 24 mg-26 mg Tablet] 1 tab PO BID [History] predniSONE [PredniSONE] 5 mg PO DAILY 04/03/17 [History] 3 Allergy/AdvReac Type Severity Reaction Status Date / Time albuterol Allergy Drowsy Verified 10/13/16 14:47 gabapentin Allergy Hallucinati Verified 10/13/16 14:47 ng Penicillins Allergy Hives Verified 10/13/16 14:47 Sulfa (Sulfonamide Allergy Hives Verified 10/13/16 14:47 Antibiotics) jello AdvReac Nausea Uncoded 10/13/16 14:47 Review of Systems All Systems: reviewed and no additional remarkable complaints except as stated Exam - Vital Signs Vital signs: Initial Vital Signs Temp Pulse Resp BP Pulse Ox 98.1 F 75 16 136/67 97 04/02/17 18:01 04/02/17 18:01 04/02/17 18:01 04/02/17 18:01 04/02/17 18:01 Vital Signs - Last 8 Hours Temp Pulse Resp BP Pulse Ox 04/06/17 07:26 97.8 F 62 18 94/59 97 04/06/17 04:15 97.9 F 68 20 106/56 99 04/06/17 04:07 14 98 Intake and Output 04/05/17 04/06/17 04/06/17 23:59 07:59 15:59 Intake Total 120 / 120 0 / 0 360 / 360 Output Total 0 / 0 150 / 150 Balance 120 / 120 -150 / -150 360 / 360 Intake: Oral 120 / 120 0 / 0 360 / 360 Output: Urine 0 / 0 150 / 150 Other: Meal Breakfast Percent of Meal Consumed 50% # Voids 250 1 Weight 80.5 kg Blood Glucose* 134 108 Patient Weight 04/06/17 23:59 Weight 80.5 kg - General Appearance General appearance: well-developed, well-nourished, appears started age EENT: ATNC, PERRL, mucous membranes dry Neck: supple Respiratory: wheezing, course breath sounds Cardiology: no edema, regular rate, regular rhythm, normal S1, normal S2 Gastrointestinal: normoactive bowel sounds, no tenderness, no guarding, obese Integumentary: no rash, warm and dry, ecchymotic (near IV sites) Neurologic: no focal deficit, no asterixis, alert and oriented x3 Musculoskeletal: no deformities, no erythema, no cyanosis Psychiatric: mood/affect appropriate, cooperative Results - Lab Results 04/06/17 03:42 04/06/17 03:42 Most recent lab results Calcium 9.3 mg/dL (8.6-10.8) 04/06/17 03:42 Phosphorus 3.9 mg/dL (2.3-4.7) 04/04/17 03:27 Magnesium 1.9 mg/dL (1.6-2.6) 04/04/17 03:27 I reviewed the labs, med lists, vitals, imaging and progress notes for his moderately complex patient with at moderate to high risk from SON. Consult Discharge Plan - Plan Referrals: Francisco Melgar Jr [Primary Care Provider] -
--- NOTE | 2017-04-06 11:00 | Internal Med Progress Note ---
Date of Encounter: 04/06/17 Time of Encounter: 10:30 - Assessment and plan (1) Acute on chronic respiratory failure with hypoxia and hypercapnia Current Visit: Yes Status: Acute Assessment and plan: Improving. Patient is breathing better. Continue O2 supplementation. Wean FiO2 as tolerated (2) Acute exacerbation of CHF (congestive heart failure) Current Visit: Yes Status: Acute Assessment and plan: Clinically patient appears to be getting better. Pedal edema has come down. However her renal function appears to be worsening. We will consult nephrology for recommendations. Continue to hold Lasix Qualifiers: Congestive heart failure type: combined Qualified Code(s): I50.43 - Acute on chronic combined systolic (congestive) and diastolic (congestive) heart failure (3) Owpqq-no-zwzmaze kidney injury Current Visit: Yes Status: Acute Assessment and plan: Creatinine 2.5 one daily. Continue to hold Lasix and entresto Qualifiers: Acute renal failure type: unspecified Chronic kidney disease stage: stage 3 (moderate) Qualified Code(s): N17.9 - Acute kidney failure, unspecified; N18.3 - Chronic kidney disease, stage 3 (moderate) (4) Symptomatic anemia Current Visit: Yes Status: Acute Assessment and plan: Hemoglobin level at 7.5. Severe iron deficiency anemia. Patient has received intravenous iron for 3 days. Patient does not want any endoscopy at this time. Discussed with nephrology. We will plan to get the patient started on EPO. We will start Aranesp while she is here (5) Atrial fibrillation Current Visit: Yes Status: Chronic Assessment and plan: Regular rhythm. Not on anticoagulation due to severe anemia Qualifiers: Atrial fibrillation type: paroxysmal Qualified Code(s): I48.0 - Paroxysmal atrial fibrillation (6) COPD (chronic obstructive pulmonary disease) Current Visit: Yes Status: Chronic Assessment and plan: Continue bronchodilators. Patient is also on low-dose prednisone chronically. Continue Symbicort Qualifiers: COPD type: chronic bronchitis Chronic bronchitis type: mucopurulent Qualified Code(s): J41.1 - Mucopurulent chronic bronchitis (7) Chronic kidney disease, stage 3 Current Visit: Yes Status: Chronic Assessment and plan: With acute worsening of renal function. Nephrology consulted (8) Hypotension Current Visit: Yes Status: Acute Assessment and plan: Blood pressure remains low normal. Holding antihypertensives. Amiodarone dosage is also been decreased. We will continue to monitor for now. Qualifiers: Hypotension type: hypotension due to drug Qualified Code(s): I95.2 - Hypotension due to drugs - Subjective Interval history: Patient is feeling somewhat better today. Continues to feel tired but denies any shortness of breath or chest pain. No abdominal pain at this time. No hematemesis or melena. - Constitutional Vitals: Temp Pulse Resp BP Pulse Ox 97.8 F 62 18 94/59 97 04/06/17 07:26 04/06/17 07:26 04/06/17 07:26 04/06/17 07:26 04/06/17 07:26 General appearance: Present: cooperative, A&O X 3, answers questions appropriately - Eye Eye exam: Present: EOMI, PERRL - Neck Neck exam general surgery: Present: supple, trachea midline. Absent: lymphadenopathy - Respiratory Respiratory exam: Present: CTAB. Absent: accessory muscle use, rales, rhonchi, wheezes - Cardiovascular Cardiovascular exam: Present: RRR, +S1, +S2. Absent: diastolic murmur, gallop, rubs, systolic murmur - GI/Abdominal GI/Abdominal exam: Present: normal bowel sounds, soft, no peritoneal signs. Absent: distended, tenderness - Extremities Exam Extremities exam: Present: warm, radial pulses palpable and symmetrical. Absent : calf tenderness, cyanotic, pedal edema - Neurological Exam Neurological exam: Present: alert, oriented X3, no focal deficits. Absent: facial droop, speech deficit - Skin Skin exam: Present: dry, intact, pallor Internal Medicine: Result - Labs CBC & Chem 7: 04/06/17 03:42 04/06/17 03:42 Labs: Short CBC 04/06/17 Range/Units 03:42 WBC 7.7 (4.3-11.1) K/mcL Hgb 7.5 L (11.5-15.4) g/dL Hct 27.7 L (35.3-44.9) % Plt Count 195 (140-400) K/mcL Neutrophils # 6.6 (1.6-8.9) K/mcL BMP 04/06/17 03:42 Sodium 136 Potassium 4.5 Chloride 90 L Carbon Dioxide 35 H BUN 38 H Creatinine 2.51 H Glucose 108 H Calcium 9.3 - ABG Interpretation ABG results: PT/INR, D-dimer PT 11.9 Seconds (9.4-12.1) 04/03/17 08:51 Consult Discharge Plan - Plan Referrals: Francisco Melgar Jr [Primary Care Provider] -
[2017-04-06] MEDS: Budesonide/Formoterol 160/4.5 MDI IH SCH ×2 (11:13→20:02)
[2017-04-06] MEDS: Albumin 25% 25gram/100mL 25 GM/100 ML IV.SOLN IVPB SCH ×2 (12:12→22:22)
--- NOTE | 2017-04-06 14:25 | Palliative - Consult Note ---
Date of Encounter: 04/06/17 Time of Encounter: 14:30 - Assessment and Plan (1) Counseling regarding advanced care planning and goals of care Current Visit: Yes Status: Acute Assessment and plan: Goals of care discussion with pt. She was very quiet during conversation, and did not elaborate on her reasoning for her desires. She continues to want FULL CODE, however, would not want senior living life support measures. She does have POA in place - son Doe is her power of county attorney - and states she has already discussed her wishes with him. She does still continue to refused endoscopies - her reasoning "I had them in April and they were ok then". Discussed that conditions can change in a short period of time, but she continues to not desire scopes. She did state that bone marrow biopsy has been discussed and she would consider this. Supportive home enviroment with [facility], [facility]/ [facility] (Mya Zimmerman, case resolution specialist), [employer], home delivered meals, and multiple DME's. Son lives next door. He did fracture his ankle last week which required surgery. She lost another child to car accident years ago. (2) Wuiic-ed-krbwkdh kidney injury Current Visit: Yes Status: Acute Qualifiers: Acute renal failure type: unspecified Chronic kidney disease stage: stage 3 (moderate) Qualified Code(s): N17.9 - Acute kidney failure, unspecified; N18.3 - Chronic kidney disease, stage 3 (moderate) (3) Anemia Current Visit: No Status: Chronic Assessment and plan: Transfused on admission. HGB stable since. Dr. Taylor saw - pt refusing scopes. States she would consider BM biopsy Qualifiers: Anemia type: due to chronic kidney disease Chronic kidney disease stage: stage 3 (moderate) Qualified Code(s): N18.3 - Chronic kidney disease, stage 3 (moderate); D63.1 - Anemia in chronic kidney disease (4) History of implantable cardiac defibrillator (ICD) Current Visit: No Status: Chronic Palliative-CN HPI - Data of Consult Requesting Physician: Delano Kraft MD Primary Care Provider: Francisco Melgar Jr - Consult Narrative History of present illness: Ms. Higginbotham is a 76 year old female with multiple health problems including: COPD, CHF, CKD stage 3, Bioprosthetic aortic valve, AICD, T2DM and Atrial Fibrillation who presented to the Emergency Department with shortness of breath that had worsened over the last week. She is currently using 4L oxygen at home all the time and recently increased from 2.5L only at night 2 months ago. She states that she saw Dr. Rojo a few months back and that "my hemoglobin became worse after he scoped me, I'm not going back to him. EMR review shows last known ECHO was 04/22/16 that demonstrated EF 55%, mild dilated LV with diastolic dysfunction. She admits to smoking 1PPD for 30 years but quit several years ago. She was found to have Hgb of 5.1. She was transfused and this stabilized. Surgical consult was obtained, but pt adamantly refused upper and lower endoscopy. She also had acute on chronic kidney issues and nephrology is following. Upon my visit, she is up in chair, and states feels well except for weakness. Denies any pain, shortness of breath, anxiety, constipation, n/v. No family is present in room. She is quiet and does not elaborate much during conversation. CC: Delano Kraft MD Past Med Surg Social Fam HX - Past Medical History Medical history: asthma, atrial fibrillation, cancer, cardiomyopathy, CHF, COPD , GERD, GI bleed, thyroid disease, valvular heart disease, other Psychiatric history: anxiety, depression - Past Surgical History Surgical History: appendectomy, breast surgery, cancer surgery, heart valve replacement, hysterectomy, pacemaker/AICD - Social History Smoking Status: Former smoker Smokeless Tobacco Status: No Alcohol use: none Drug use: none - Family History Mother Family Member Ethnicity: Non- Living Status: Hx Family Cardiac Disorders: No Hx Family Respiratory Disorders: No Hx Family Cancer: Yes Hx Family GI Disorders: No Hx Family Endocrine Disorder: No Hx Family Neuromuscular Disorders: No Hx Family Neurologic Disorders: No Hx Family HEENT Disorders: No Hx Family Autoimmune Disorders: No Father Living Status: Hx Family Cardiac Disorders: Yes Hx Family Respiratory Disorders: No Hx Family Cancer: Yes Hx Family GI Disorders: No Hx Family Endocrine Disorder: No Hx Family Neuromuscular Disorders: No Hx Family Neurologic Disorders: No Hx Family HEENT Disorders: No Hx Family Autoimmune Disorders: No Medications and Allergies Budesonide/Formoterol 160/4.5 [Symbicort] 2 puff IH BID 01/30/15 [History] FLUoxetine HCl [Prozac] 20 mg PO BID 01/30/15 [History] Oxycodone HCl/Acetaminophen [Percocet 10-325 mg Tablet] 1 tab PO Q6H PRN [History] Allopurinol [Zyloprim 300 MG] 300 mg PO DAILY 01/12/16 [History] Ropinirole HCl [Requip] 4 mg PO HS 01/12/16 [History] Calcium Carbonate [Calcium] 1,500 mg PO BID 04/22/16 [History] Ipratropium/Albuterol Neb [Duoneb] 3 ml IH Q6HR PRN 04/22/16 [History] Levothyroxine [Synthroid] 50 mcg PO DAILY 04/22/16 [History] Oxygen 4 l NS CONT 04/22/16 [History] Folic Acid 1 mg PO DAILY 05/28/16 [History] Ferrous Sulfate 325 mg PO BIDWM #60 tablet 06/06/16 [Rx] Ranitidine HCl [Acid Beam Department Supervisor] 150 mg PO BID 07/12/16 [History] Albuterol Sulfate [Ventolin Hfa] 1 - 2 puff IH Q4-6H PRN 10/14/16 [History] Potassium Chloride [K-Tab ER] 40 meq PO QPM 10/14/16 [History] Potassium Chloride [K-Tab ER] 60 meq PO QAM 10/14/16 [History] Umeclidinium Echola [Incruse Ellipta] 1 puff IH DAILY 10/14/16 [History] Amiodarone [Cordarone] 200 mg PO BID 12/29/16 [History] Furosemide [Lasix] 40 mg PO QPM 12/29/16 [History] Furosemide [Lasix] 80 mg PO QAM 12/29/16 [History] Sacubitril/Valsartan 24/26 mg [Entresto 24 mg-26 mg Tablet] 1 tab PO BID [History] predniSONE [PredniSONE] 5 mg PO DAILY 04/03/17 [History] 3 Allergy/AdvReac Type Severity Reaction Status Date / Time albuterol Allergy Drowsy Verified 10/13/16 14:47 gabapentin Allergy Hallucinati Verified 10/13/16 14:47 ng Penicillins Allergy Hives Verified 10/13/16 14:47 Sulfa (Sulfonamide Allergy Hives Verified 10/13/16 14:47 Antibiotics) jello AdvReac Nausea Uncoded 10/13/16 14:47 All systems: reviewed and no additional remarkable complaints except as stated ( "sore all over from hospital bed", weakness) Palliative Care-Exam - Constitutional Vitals: Temp Pulse Resp BP Pulse Ox 97.8 F 62 18 94/54 97 04/06/17 07:26 04/06/17 07:26 04/06/17 11:17 04/06/17 12:13 04/06/17 11:17 General appearance: Present: no acute distress - Head Head Exam: Present: normal inspection, normocephalic - Eye Eye exam: Present: normal appearance, PERRL - Respiratory Respiratory exam: Present: CTAB - Cardiovascular Cardiovascular exam: Present: +S1, +S2 - GI/Abdominal Exam GI/Abdominal exam: Present: normal bowel sounds, soft - Extremities Exam Extremities exam: Present: normal capillary refill, normal inspection - Neurological Exam Neurological exam: Present: alert, oriented X3, strengths equal and symetr throughout Additional comments: generalized weakness - Psychiatric Psychiatric exam: Present: normal affect, normal mood - Skin Skin exam: Present: dry, pallor, warm Internal Medicine - CN: Reslt - Labs CBC & Chem 7: 04/06/17 03:42 04/06/17 03:42 Labs: Short CBC 04/06/17 Range/Units 03:42 WBC 7.7 (4.3-11.1) K/mcL Hgb 7.5 L (11.5-15.4) g/dL Hct 27.7 L (35.3-44.9) % Plt Count 195 (140-400) K/mcL Neutrophils # 6.6 (1.6-8.9) K/mcL BMP 04/06/17 03:42 Sodium 136 Potassium 4.5 Chloride 90 L Carbon Dioxide 35 H BUN 38 H Creatinine 2.51 H Glucose 108 H Calcium 9.3 - ABG Interpretation ABG results: PT/INR, D-dimer PT 11.9 Seconds (9.4-12.1) 04/03/17 08:51 Consult Discharge Plan - Plan Referrals: Francisco Melgar Jr [Primary Care Provider] - Palliative Quality Palliative Quality: Screen for Code Status: Yes, Screen for Goals of Care: Yes, Screen for Pain: Yes, If Pain Regimen Started, Initiate Bowel Regimen: NA, Screen for Nausea/Vomitting: Yes
[2017-04-06] MEDS: rOPINIRole 1 MG TABLET PO SCH (21:17)
[2017-04-07] MEDS: Ipratropium/Albuterol Neb 3 ML IH SCH ×6 (03:46→23:30)
[2017-04-07] MEDS: Albumin 25% 25gram/100mL 25 GM/100 ML IV.SOLN IVPB SCH (05:19)
[2017-04-07 06:55] LABS: Mean Platelet Volume 9.9 fL (9.4-12.4)
[2017-04-07 06:56] LABS: Hematocrit 24.7 % (35.3-44.9); Hemoglobin 6.7 g/dL (11.5-15.4); Mean Corpuscular HGB Conc 27.1 g/dL (31.6-35.5); Mean Corpuscular Hemoglobin 21.6 pg (28.0-33.3); Mean Corpuscular Volume 79.7 fL (83.0-100.0); Nucleated Red Blood Cells 0.9 /100 WBC (0); Platelet Count 160 K/mcL (140-400); Red Cell Distribution Width 20.8 % (11.5-14.5)
[2017-04-07 07:02] LABS: Albumin 3.3 g/dL (3.5-5.0); Calcium 9.6 mg/dL (8.6-10.8); Potassium 4.3 mEq/L (3.5-4.5)
[2017-04-07 07:12] LABS: Neutrophils # 5.8 K/mcL (1.6-8.9)
[2017-04-07 07:40] LABS: Basophilic Stippling 1+ (Not Present); Hypochromasia Present (Not Present); Lymphocytes # 0.6 K/mcL (0.6-4.6); Monocytes # 0.6 K/mcL (0.0-1.3); Ovalocytes 1+ (Not Present); Polychromasia 2+ (Not Present)
[2017-04-07 07:41] LABS: Platelet Estimate Normal (Normal); Stomatocytes 1+ (Not Present)
[2017-04-07] MEDS: Budesonide/Formoterol 160/4.5 MDI IH SCH ×2 (07:56→19:47)
[2017-04-07] MEDS: FLUoxetine 20 MG CAPSULE PO SCH ×2 (08:08→21:38)
[2017-04-07] MEDS: predniSONE 5 MG TABLET PO SCH (08:08)
[2017-04-07] MEDS: Folic Acid 1 MG TABLET PO SCH (08:08)
[2017-04-07] MEDS: *HR* Amiodarone 200 MG TABLET PO SCH (08:09)
[2017-04-07] MEDS: Cyanocobalamin (B-12) 1,000 MCG TABLET PO SCH (08:09)
--- NOTE | 2017-04-07 10:09 | Nephrology Progress Note ---
Date of Encounter: 04/07/17 Time of Encounter: 10:07 - Assessment and Plan (1) SON (acute kidney injury) Current Visit: No Status: Acute SON on CKD Stage IIIB, Likely Related to Prerenal Hypoperfusion in the Setting of Low Blood Pressures. Renal Function Slightly Better Today and Patient Reports good urine output however there is none documented in the eyes and nose. Continue to recommend holding diuretics given that the patient appears euvolemic and creatinine is improving. Albumin 25 g 3 doses appears to have helped her blood pressure. Anemia: Hemoglobin worse today despite receiving a dose of Aranesp yesterday. Likely multifactorial including severe iron deficiency, anemia related to CKD, as well as possible acute blood loss anemia. We will continue Aranesp weekly with the eventual goal of titrating up to every 4 weeks as an outpatient. She will also need more IV iron as an outpatient. Would hold further IV iron infusions given that the patient is receiving blood products. Continue to follow her renal protective strategy to avoid nephrotoxic agents including NSAIDs, IV contrast, and medications renally dosed. Will continue to follow. (2) RUMA (iron deficiency anemia) Current Visit: No Status: Chronic Qualifiers: Iron deficiency anemia type: other iron deficiency Qualified Code(s): D50.8 - Other iron deficiency anemias (3) Anemia in chronic kidney disease (CKD) Current Visit: Yes Status: Acute Qualifiers: Chronic kidney disease stage: stage 3 (moderate) Qualified Code(s): N18.3 - Chronic kidney disease, stage 3 (moderate); D63.1 - Anemia in chronic kidney disease; D63.1 - Anemia in chronic kidney disease (4) Chronic kidney disease, stage 3 Current Visit: Yes Status: Chronic (5) T2DM (type 2 diabetes mellitus) Current Visit: Yes Status: Chronic As per primary. Qualifiers: Diabetes mellitus complication status: without complication Diabetes mellitus penitentiary insulin use: without penitentiary use Qualified Code(s): E11.9 - Type 2 diabetes mellitus without complications (6) Metabolic alkalosis with respiratory acidosis Current Visit: No Status: Chronic Stable. Acute on chronic. Likely related to COPD and diuretic use. Subjective Principal diagnosis: SON on CKD Interval history: Patient seen and examined at bedside. Patient states that she feels better today. She denies any chest pain, shortness of breath. She reports her edema that was present on admission is much improved. She denies nausea, vomiting, diarrhea. She reports urinating frequently over the last 24 hours with a good amount of urine output with each void. Objective - Vital Signs Vital signs: Vital Signs Temp Pulse Resp BP Pulse Ox 04/07/17 07:56 20 91 04/07/17 07:00 63 17 103/55 93 04/07/17 04:29 97.6 F 62 18 103/49 97 04/07/17 03:46 18 96 04/06/17 23:00 18 94 04/06/17 20:10 69 20 88/56 100 04/06/17 20:02 16 100 04/06/17 16:39 97.9 F 68 18 81/44 96 04/06/17 15:34 20 63 04/06/17 12:13 94/54 04/06/17 11:17 18 97 Intake and Output 04/06/17 04/07/17 04/07/17 23:59 07:59 15:59 Intake Total 120 / 120 100 / 100 120 / 120 Balance 120 / 120 100 / 100 120 / 120 Intake: IV Fluids 100 / 100 Flexbumin 25 gm In 100 ml @ 60 100 / 100 mls/hr IVPB Q8H [facility] Rx#: [id number] Oral 120 / 120 0 / 0 120 / 120 Other: Meal Dinner Breakfast Percent of Meal Consumed 15% 100% # Voids 0 0 Weight 81 kg Blood Glucose* 144 110 Patient Weight 04/07/17 23:59 Weight 81 kg - General Appearance General appearance: Present: well-developed, well-nourished, appears started age EENT: Present: ATNC, mucous membranes dry Neck: Present: supple Respiratory: Present: wheezing (Scattered, end expiratory) Cardiology: Present: no edema, regular rate, regular rhythm, normal S1, normal S2 Gastrointestinal: Present: normoactive bowel sounds, no tenderness, no guarding Integumentary: Present: no rash, warm and dry Neurologic: Present: no focal deficit, alert and oriented x3 Musculoskeletal: Present: no erythema, no cyanosis, no clubbing Psychiatric: Present: mood/affect appropriate - Lab 04/07/17 05:41 04/07/17 05:41 Most recent lab results Calcium 9.6 mg/dL (8.6-10.8) 04/07/17 05:41 Phosphorus 3.9 mg/dL (2.3-4.7) 04/04/17 03:27 Magnesium 1.9 mg/dL (1.6-2.6) 04/04/17 03:27 - VTE Documentation of Mechanical Device: Intermittent pneumatic compression device Consult Discharge Plan - Plan Referrals: Francisco Melgar Jr [Primary Care Provider] -
[2017-04-07] MEDS: Iron Sucrose Complex 200 MG in 0.9 % Sodium Chloride 100 ML IVPB SCH (10:48)
[2017-04-07] MEDS: (Umeclidinium Bromide [Incruse Ellipta] 1 PUFF) IH SCH (11:04)
[2017-04-07] MEDS ORDERED: 0.9 % Sodium Chloride 500 ML ONE (12:44)
--- NOTE | 2017-04-07 15:20 | Internal Med Progress Note ---
Date of Encounter: 04/07/17 Time of Encounter: 11:20 - Assessment and plan (1) Acute on chronic respiratory failure with hypoxia and hypercapnia Current Visit: Yes Status: Acute Assessment and plan: Stable. Continue O2 supplementation. (2) Acute exacerbation of CHF (congestive heart failure) Current Visit: Yes Status: Acute Assessment and plan: Clinically improving. BNP also decreased since admission. Renal function appears to also be improving. Nephrology following. Patient received albumin yesterday. Will receive Lasix today posttransfusion. Will follow renal function closely. Qualifiers: Congestive heart failure type: combined Qualified Code(s): I50.43 - Acute on chronic combined systolic (congestive) and diastolic (congestive) heart failure (3) Nrfhn-lz-kejysoh kidney injury Current Visit: Yes Status: Acute Assessment and plan: Creatinine 2.12 today. Patient appears to have responded to albumin use yesterday and Lasix is also on hold. She will receive 1 dose of Lasix posttransfusion today. Continue to hold entresto. Qualifiers: Acute renal failure type: unspecified Chronic kidney disease stage: stage 3 (moderate) Qualified Code(s): N17.9 - Acute kidney failure, unspecified; N18.3 - Chronic kidney disease, stage 3 (moderate) (4) Symptomatic anemia Current Visit: Yes Status: Acute Assessment and plan: Hemoglobin 6.7. Will order 1 unit packed red blood cell transfusion. Will receive Lasix posttransfusion. Discussed with oncology/hematology about possible bone marrow biopsy. However utility of doing this test in the current situation is questionable. Patient does have severe iron deficiency anemia. She received 3 doses of IV iron infusions so far. Another dose ordered by hematology today. (5) Atrial fibrillation Current Visit: Yes Status: Chronic Assessment and plan: Rate controlled. Not on anticoagulation due to severe anemia Qualifiers: Atrial fibrillation type: paroxysmal Qualified Code(s): I48.0 - Paroxysmal atrial fibrillation (6) COPD (chronic obstructive pulmonary disease) Current Visit: Yes Status: Chronic Assessment and plan: Continue bronchodilators. On low-dose prednisone at baseline. Continuing Qualifiers: COPD type: chronic bronchitis Chronic bronchitis type: mucopurulent Qualified Code(s): J41.1 - Mucopurulent chronic bronchitis (7) Chronic kidney disease, stage 3 Current Visit: Yes Status: Chronic (8) Hypotension Current Visit: Yes Status: Resolved Assessment and plan: Blood pressure has now improved. Qualifiers: Hypotension type: hypotension due to drug Qualified Code(s): I95.2 - Hypotension due to drugs (9) Moderate protein-calorie malnutrition Current Visit: Yes Status: Chronic Assessment and plan: Albumin 3.3. Nutrition following. - Subjective Interval history: Patient with history of chronic kidney disease or CHF, COPD, atrial fibrillation admitted with symptomatic anemia. Has had negative workup earlier this year and refusing any other endoscopy at this time. Evaluated by surgery and hematology. Received IV infusion therapy for severe anemia. Also being treated for CHF with Lasix but developed worsening renal function. Nephrology consulted. Patient also received aranesp and PRBC transfusion. Patient is feeling better today. Sitting up in chair. Denies any new complaints at this time. No nausea or vomiting. No fever or chills. No chest pain. No significant shortness of breath at this time. - Constitutional Vitals: Temp Pulse Resp BP Pulse Ox 97.6 F 73 14 108/85 88 04/07/17 13:16 04/07/17 13:16 04/07/17 13:16 04/07/17 13:16 04/07/17 13:01 General appearance: Present: cooperative, A&O X 3, answers questions appropriately - Neck Neck exam general surgery: Present: supple, trachea midline. Absent: lymphadenopathy - Respiratory Respiratory exam: Present: prolonged expiratory phase. Absent: accessory muscle use, rales, rhonchi, wheezes - Cardiovascular Cardiovascular exam: Present: RRR, +S1, +S2. Absent: diastolic murmur, gallop, rubs, systolic murmur - GI/Abdominal GI/Abdominal exam: Present: normal bowel sounds, soft, no peritoneal signs. Absent: distended, tenderness - Extremities Exam Extremities exam: Present: pedal edema, warm, radial pulses palpable and symmetrical. Absent: calf tenderness, cyanotic Internal Medicine: Result - Labs CBC & Chem 7: 04/07/17 05:41 04/07/17 05:41 Labs: Short CBC 04/07/17 Range/Units 05:41 WBC 6.9 (4.3-11.1) K/mcL Hgb 6.7 L (11.5-15.4) g/dL Hct 24.7 L (35.3-44.9) % Plt Count 160 (140-400) K/mcL Neutrophils # 5.8 (1.6-8.9) K/mcL BMP 04/07/17 05:41 Sodium 137 Potassium 4.3 Chloride 90 L Carbon Dioxide 38 H BUN 37 H Creatinine 2.12 H Glucose 99 Calcium 9.6 Liver Function 04/07/17 Range/Units 05:41 Albumin 3.3 L (3.5-5.0) g/dL - ABG Interpretation ABG results: PT/INR, D-dimer PT 11.9 Seconds (9.4-12.1) 04/03/17 08:51 - VTE Documentation of Mechanical Device: Intermittent pneumatic compression device Consult Discharge Plan - Plan Referrals: Francisco Melgar Jr [Primary Care Provider] -
[2017-04-07] MEDS ORDERED: Furosemide 20 MG/2 ML VIAL IVP ONE (16:00)
--- NOTE | 2017-04-07 16:06 | Oncology Inp Progress Note ---
<Samia Blake E - Last Filed: 04/07/17 16:04> Date of Encounter: 04/07/17 Time of Encounter: 03:30 (1) Iron deficiency anemia Current Visit: Yes Status: Acute Assessment and plan: Microcytic anemia- we will continue to work to correct iron deficiency , continue iron oral and Iv iron and aranesp. Transfuse as needed. May consider bone marrow study in the future but not at this time. If she patient does have MDS treatment is very similar and is supportive in nature. Stool for occult blood - not collected to date. Qualifiers: Iron deficiency anemia type: other iron deficiency Qualified Code(s): D50.8 - Other iron deficiency anemias Oncology: Subj Interval history: Patient states she is feeling much better, shortness of breath improving, weakness also improving. Denies obvious blood in stool. Does not want to have repeat endoscopies. Seen and examined at bed side. Hgb this AM 6.7. She is currently receiving a unit of packed cells. - Constitutional Vitals: Vital Signs Temp Pulse Resp BP Pulse Ox 04/07/17 15:00 97.7 F 66 18 131/63 97 04/07/17 13:16 97.6 F 73 14 108/85 04/07/17 13:01 97.6 F 14 101/50 88 04/07/17 11:10 16 92 04/07/17 11:00 60 18 104/46 97 04/07/17 07:56 20 91 04/07/17 07:00 63 17 103/55 93 04/07/17 04:29 97.6 F 62 18 103/49 97 04/07/17 03:46 18 96 04/06/17 23:00 18 94 04/06/17 20:10 69 20 88/56 100 04/06/17 20:02 16 100 04/06/17 16:39 97.9 F 68 18 81/44 96 Intake and Output 04/07/17 04/07/17 04/07/17 07:59 15:59 23:59 Intake Total 100 / 100 360 / 360 Output Total 900 / 900 Balance 100 / 100 -540 / -540 Intake: IV Fluids 100 / 100 Flexbumin 25 gm In 100 ml @ 60 100 / 100 mls/hr IVPB Q8H [facility] Rx#: [id number] Oral 0 / 0 360 / 360 Blood Product 0 / 0 Rbcs Leuko Poor As-1 Unit 0 / 0 [id number] Output: Urine 900 / 900 Other: Meal Lunch Percent of Meal Consumed 50% # Voids 0 Weight 81 kg Blood Glucose* 110 144 Patient Weight 04/07/17 23:59 Weight 81 kg General appearance: cooperative, no acute distress - Head Head exam: Present: normocephalic - Respiratory Respiratory exam: Present: rales (bilateral bases), wheezes (scattered) - Cardiovascular Additional comments: murmurs present - GI/Abdominal GI/Abdominal exam: Present: firm, normal bowel sounds, soft - Extremities Exam Extremities exam: Present: normal inspection (No edema) - Psychiatric Psychiatric exam: Present: normal affect, normal mood - Skin Additional comments: R forearm bruised. scattered bruises on both forearms from previous IV sites. Oncology: Obj Data - Labs CBC & Chem 7: 04/07/17 05:41 04/07/17 05:41 Labs: Laboratory Results - last 24 hr 04/06/17 04/06/17 04/06/17 07:28 16:41 20:13 WBC RBC Hgb Hct MCV MCH MCHC RDW Plt Count MPV Seg Neutrophils % Lymphocytes % Monocytes % Neutrophils # Lymphocytes # Monocytes # Nucleated RBCs/100 WBC Platelet Estimate Polychromasia Hypochromasia Basophilic Stippling Ovalocytes Stomatocytes Sodium Potassium Chloride Carbon Dioxide BUN Creatinine Est GFR ( Amer) Est GFR (Non-Af Amer) BUN/Creatinine Ratio Glucose POC Glucose 108 H 140 H 144 H Calculated Osmolality Calcium B-Natriuretic Peptide Albumin Blood Type Antibody Screen Crossmatch 04/07/17 04/07/17 04/07/17 05:41 05:41 05:41 WBC 6.9 RBC 3.10 L Hgb 6.7 L Hct 24.7 L MCV 79.7 L MCH 21.6 L MCHC 27.1 L RDW 20.8 H Plt Count 160 MPV 9.9 Seg Neutrophils % 84.0 Lymphocytes % 8.0 Monocytes % 8.0 Neutrophils # 5.8 Lymphocytes # 0.6 Monocytes # 0.6 Nucleated RBCs/100 WBC 0.9 H Platelet Estimate Normal Polychromasia 2+ A Hypochromasia Present A Basophilic Stippling 1+ A Ovalocytes 1+ A Stomatocytes 1+ A Sodium 137 Potassium 4.3 Chloride 90 L Carbon Dioxide 38 H BUN 37 H Creatinine 2.12 H Est GFR ( Amer) 27 L Est GFR (Non-Af Amer) 23 L BUN/Creatinine Ratio 17 Glucose 99 POC Glucose Calculated Osmolality 293 Calcium 9.6 B-Natriuretic Peptide 1241 H Albumin 3.3 L Blood Type Antibody Screen Crossmatch 04/07/17 09:18 WBC RBC Hgb Hct MCV MCH MCHC RDW Plt Count MPV Seg Neutrophils % Lymphocytes % Monocytes % Neutrophils # Lymphocytes # Monocytes # Nucleated RBCs/100 WBC Platelet Estimate Polychromasia Hypochromasia Basophilic Stippling Ovalocytes Stomatocytes Sodium Potassium Chloride Carbon Dioxide BUN Creatinine Est GFR ( Amer) Est GFR (Non-Af Amer) BUN/Creatinine Ratio Glucose POC Glucose Calculated Osmolality Calcium B-Natriuretic Peptide Albumin Blood Type O POSITIVE Antibody Screen NEGATIVE Crossmatch See Detail - ABG Interpretation ABG results: PT/INR, D-dimer PT 11.9 Seconds (9.4-12.1) 04/03/17 08:51 Consult Discharge Plan - Plan Referrals: Francisco Melgar Jr [Primary Care Provider] - <Jarad Higginbotham - Last Filed: 04/07/17 17:17> Date of Encounter: 04/07/17 - Constitutional Vitals: Vital Signs Temp Pulse Resp BP Pulse Ox 04/07/17 16:27 96.4 F L 16 115/57 93 04/07/17 15:39 18 100 04/07/17 15:00 97.7 F 66 18 131/63 97 04/07/17 13:16 97.6 F 73 14 108/85 04/07/17 13:01 97.6 F 14 101/50 88 04/07/17 11:10 16 92 04/07/17 11:00 60 18 104/46 97 04/07/17 07:56 20 91 04/07/17 07:00 63 17 103/55 93 04/07/17 04:29 97.6 F 62 18 103/49 97 04/07/17 03:46 18 96 04/06/17 23:00 18 94 04/06/17 20:10 69 20 88/56 100 04/06/17 20:02 16 100 Intake and Output 04/07/17 04/07/17 04/08/17 08:59 16:59 00:59 Intake Total 220 / 220 578 / 578 Output Total 900 / 900 Balance 220 / 220 -322 / -322 Intake: IV Fluids 100 / 100 Flexbumin 25 gm In 100 ml @ 60 100 / 100 mls/hr IVPB Q8H [facility] Rx#: [id number] Oral 120 / 120 240 / 240 Blood Product 338 / 338 Rbcs Leuko Poor As-1 Unit 338 / 338 [id number] Output: Urine 900 / 900 Other: Meal Breakfast Lunch Percent of Meal Consumed 100% 50% # Voids 0 Weight 81 kg Blood Glucose* 110 144 Patient Weight 04/08/17 00:59 Weight 81 kg Oncology: Obj Data - Labs CBC & Chem 7: 04/07/17 05:41 04/07/17 05:41 Labs: Laboratory Results - last 24 hr 04/06/17 04/06/17 04/06/17 07:28 16:41 20:13 WBC RBC Hgb Hct MCV MCH MCHC RDW Plt Count MPV Seg Neutrophils % Lymphocytes % Monocytes % Neutrophils # Lymphocytes # Monocytes # Nucleated RBCs/100 WBC Platelet Estimate Polychromasia Hypochromasia Basophilic Stippling Ovalocytes Stomatocytes Sodium Potassium Chloride Carbon Dioxide BUN Creatinine Est GFR ( Amer) Est GFR (Non-Af Amer) BUN/Creatinine Ratio Glucose POC Glucose 108 H 140 H 144 H Calculated Osmolality Calcium B-Natriuretic Peptide Albumin Blood Type Antibody Screen Crossmatch 04/07/17 04/07/17 04/07/17 05:41 05:41 05:41 WBC 6.9 RBC 3.10 L Hgb 6.7 L Hct 24.7 L MCV 79.7 L MCH 21.6 L MCHC 27.1 L RDW 20.8 H Plt Count 160 MPV 9.9 Seg Neutrophils % 84.0 Lymphocytes % 8.0 Monocytes % 8.0 Neutrophils # 5.8 Lymphocytes # 0.6 Monocytes # 0.6 Nucleated RBCs/100 WBC 0.9 H Platelet Estimate Normal Polychromasia 2+ A Hypochromasia Present A Basophilic Stippling 1+ A Ovalocytes 1+ A Stomatocytes 1+ A Sodium 137 Potassium 4.3 Chloride 90 L Carbon Dioxide 38 H BUN 37 H Creatinine 2.12 H Est GFR ( Amer) 27 L Est GFR (Non-Af Amer) 23 L BUN/Creatinine Ratio 17 Glucose 99 POC Glucose Calculated Osmolality 293 Calcium 9.6 B-Natriuretic Peptide 1241 H Albumin 3.3 L Blood Type Antibody Screen Crossmatch 04/07/17 09:18 WBC RBC Hgb Hct MCV MCH MCHC RDW Plt Count MPV Seg Neutrophils % Lymphocytes % Monocytes % Neutrophils # Lymphocytes # Monocytes # Nucleated RBCs/100 WBC Platelet Estimate Polychromasia Hypochromasia Basophilic Stippling Ovalocytes Stomatocytes Sodium Potassium Chloride Carbon Dioxide BUN Creatinine Est GFR ( Amer) Est GFR (Non-Af Amer) BUN/Creatinine Ratio Glucose POC Glucose Calculated Osmolality Calcium B-Natriuretic Peptide Albumin Blood Type O POSITIVE Antibody Screen NEGATIVE Crossmatch See Detail - ABG Interpretation ABG results: PT/INR, D-dimer PT 11.9 Seconds (9.4-12.1) 04/03/17 08:51 - Attending Attestation I examined this patient and my medical decision-making was reviewed with the Advanced Practice Nurse. I agree with the documented findings, disposition and treatment plan as described except to the extent set forth below. Iron studies are consistent with iron deficiency in the setting of chronic kidney disease. Her white blood cell count platelet count are adequate. Overall, this is consistent with underlying iron deficiency. I have administered 3 more doses of Venofer starting today. Her ferritin should be over 200 and her transferrin saturation over 20 to be considered adequate in the setting of CKD. I do not see a need for bone marrow aspirate and biopsy unless her anemia persists despite having adequate iron stores and inadequate response to EPO. Continue with EPO per Dr. Tidwell.
[2017-04-07] MEDS: rOPINIRole 1 MG TABLET PO SCH (21:38)
[2017-04-08 03:42] LABS: Immature Reticulocyte % 46.7 % (11.0-38.0); Retculocyte # 0.15 M/mcL (0.05-0.10); Reticulocyte % 4.5 % (1.6-2.8)
[2017-04-08 03:43] LABS: Hematocrit 27.8 % (35.3-44.9); Mean Corpuscular Volume 81.5 fL (83.0-100.0); Red Blood Count 3.41 M/mcL (3.82-4.97); Red Cell Distribution Width 21.2 % (11.5-14.5)
[2017-04-08 03:45] LABS: Basophils % 0.4 %; Eosinophils # 0.1 K/mcL (0.0-0.6); Eosinophils % 0.9 %; Hemoglobin 7.6 g/dL (11.5-15.4); Immature Granulocytes % 3.3 % (0-4); Lymphocytes # 0.4 K/mcL (0.6-4.6); Lymphocytes % 6.6 %; Mean Corpuscular HGB Conc 27.3 g/dL (31.6-35.5); Mean Corpuscular Hemoglobin 22.3 pg (28.0-33.3); Mean Platelet Volume 9.6 fL (9.4-12.4); Monocytes # 0.3 K/mcL (0.0-1.3); Monocytes % 5.9 %; Nucleated Red Blood Cells 1.1 /100 WBC (0); Platelet Count 150 K/mcL (140-400); Segmented Neutrophils % 82.9 %
[2017-04-08 03:58] LABS: Calcium 9.6 mg/dL (8.6-10.8); Potassium 4.1 mEq/L (3.5-4.5)
[2017-04-08 04:03] LABS: Neutrophils # 4.6 K/mcL (1.6-8.9)
[2017-04-08] MEDS: Ipratropium/Albuterol Neb 3 ML IH SCH ×6 (04:19→23:31)
[2017-04-08 04:25] LABS: Hypochromasia Present (Not Present)
[2017-04-08 04:26] LABS: Platelet Estimate Normal (Normal)
[2017-04-08] MEDS: Budesonide/Formoterol 160/4.5 MDI IH SCH ×2 (08:00→19:37)
[2017-04-08] MEDS: FLUoxetine 20 MG CAPSULE PO SCH ×2 (08:41→21:41)
[2017-04-08] MEDS: predniSONE 5 MG TABLET PO SCH (08:42)
[2017-04-08] MEDS: Iron Sucrose Complex 200 MG in 0.9 % Sodium Chloride 100 ML IVPB SCH (08:42)
[2017-04-08] MEDS: *HR* Amiodarone 200 MG TABLET PO SCH (08:42)
[2017-04-08] MEDS: Folic Acid 1 MG TABLET PO SCH (08:42)
[2017-04-08] MEDS: Cyanocobalamin (B-12) 1,000 MCG TABLET PO SCH (08:43)
--- NOTE | 2017-04-08 09:42 | Event Note ---
Date of Encounter: 04/08/17 Time of Encounter: 09:30 Patient awake and alert, up in chair, states feeling much better and breathing better. Oncology consult reviewed. Patient continues to desire Iron and blood transfusions. Maintain current goals of discharging home with home health and passport. Continues to desire full code, but no supervisor intermediates life support if not expected to recover. Palliative will sign off. Please reconsult if needed.
[2017-04-08] MEDS ORDERED: Furosemide 40 MG TABLET PO ONE (10:56)
--- NOTE | 2017-04-08 11:04 | Nephrology Progress Note ---
Date of Encounter: 04/08/17 Time of Encounter: 10:58 - Assessment and Plan (1) SON (acute kidney injury) Current Visit: No Status: Acute SON on CKD Stage IIIB, Likely Related to Prerenal Hypoperfusion in the Setting of Low Blood Pressures. Renal function improved today with creatinine down to 1.77, was 2.12 yesterday. Patient reports good urine output. Given that the patient's renal function continues to improve and her edema is slightly worsening we will give a one-time dose of Lasix 40 mg orally today and monitor her kidney function in the morning. No indications for renal replacement therapy at this time. Anemia: Hemoglobin better today after receiving 1 unit of packed red blood cells. Likely multifactorial including severe iron deficiency, anemia related to CKD, as well as possible acute blood loss anemia. We will continue Aranesp 60 mcg weekly with the eventual goal of titrating up to every 4 weeks as an outpatient. Oncology has been consulted and has started the patient on Venofer 200 mg daily 3 days which should help the patient's iron deficiency. She continues to be very hesitant for any endoscopic evaluations but does state that she would agree if it becomes absolutely necessary. Continue to follow her renal protective strategy to avoid nephrotoxic agents including NSAIDs, IV contrast, and medications renally dosed. Will continue to follow. (2) RUMA (iron deficiency anemia) Current Visit: No Status: Chronic Qualifiers: Iron deficiency anemia type: other iron deficiency Qualified Code(s): D50.8 - Other iron deficiency anemias (3) Anemia in chronic kidney disease (CKD) Current Visit: Yes Status: Acute Qualifiers: Chronic kidney disease stage: stage 3 (moderate) Qualified Code(s): N18.3 - Chronic kidney disease, stage 3 (moderate); D63.1 - Anemia in chronic kidney disease; D63.1 - Anemia in chronic kidney disease (4) Chronic kidney disease, stage 3 Current Visit: Yes Status: Chronic (5) T2DM (type 2 diabetes mellitus) Current Visit: Yes Status: Chronic As per primary. Qualifiers: Diabetes mellitus complication status: without complication Diabetes mellitus intermodal dispatcher insulin use: without intermodal dispatcher use Qualified Code(s): E11.9 - Type 2 diabetes mellitus without complications (6) Metabolic alkalosis with respiratory acidosis Current Visit: No Status: Chronic Slightly worse today. Asymptomatic. Acute on chronic. Likely related to COPD and diuretic use. Subjective Principal diagnosis: SON on CKD Interval history: Patient seen and examined at bedside. Patient states that she feels better again today. She is sitting up in the chair with minimal complaints. She denies fever, chills, chest pain, shortness of breath, abdominal pain. Objective - Vital Signs Vital signs: Vital Signs Temp Pulse Resp BP Pulse Ox 04/08/17 08:00 16 98 04/08/17 07:33 97.8 F 88 14 127/77 98 04/08/17 05:04 97.9 F 62 20 111/51 90 04/07/17 23:30 16 94 04/07/17 23:00 61 18 109/57 97 04/07/17 21:41 98 04/07/17 19:47 16 98 04/07/17 19:30 97.5 F L 57 15 101/58 97 04/07/17 16:27 96.4 F L 16 115/57 93 04/07/17 15:39 18 100 04/07/17 15:00 97.7 F 66 18 131/63 97 04/07/17 13:16 97.6 F 73 14 108/85 04/07/17 13:01 97.6 F 14 101/50 88 04/07/17 11:10 16 92 04/07/17 11:00 60 18 104/46 97 Intake and Output 04/07/17 04/08/17 04/08/17 23:59 07:59 15:59 Intake Total 338 / 338 0 / 0 120 / 120 Output Total 650 / 650 300 / 300 Balance -312 / -312 -300 / -300 120 / 120 Intake: Oral 0 / 0 0 / 0 120 / 120 Blood Product 338 / 338 Rbcs Leuko Poor As-1 Unit 338 / 338 [id number] Output: Urine 650 / 650 300 / 300 Other: Meal Breakfast Percent of Meal Consumed 100% Weight 80.4 kg 80.4 kg Blood Glucose* 144 85 Patient Weight 04/08/17 23:59 Weight 80.4 kg - General Appearance General appearance: Present: well-developed, well-nourished EENT: Present: ATNC, PERRL, mucous membranes moist Neck: Present: supple Respiratory: Present: rales (Trace, bibasilar) Cardiology: Present: mid-systolic murmur, edema (1+ lower extremities bilaterally), regular rate, regular rhythm Gastrointestinal: Present: normoactive bowel sounds, no tenderness, no guarding Integumentary: Present: warm and dry Neurologic: Present: no focal deficit, alert and oriented x3 Musculoskeletal: Present: no deformities, no cyanosis, no clubbing Psychiatric: Present: mood/affect appropriate - Lab 04/08/17 03:15 04/08/17 03:15 Most recent lab results Calcium 9.6 mg/dL (8.6-10.8) 04/08/17 03:15 Phosphorus 3.9 mg/dL (2.3-4.7) 04/04/17 03:27 Magnesium 1.9 mg/dL (1.6-2.6) 04/04/17 03:27 - VTE Documentation of Mechanical Device: Intermittent pneumatic compression device Consult Discharge Plan - Plan Referrals: Francisco Melgar Jr [Primary Care Provider] -
--- NOTE | 2017-04-08 15:02 | Oncology Inp Progress Note ---
<Amy Oconnor L - Last Filed: 04/08/17 17:26> Date of Encounter: 04/08/17 Time of Encounter: 13:00 (1) Iron deficiency anemia Current Visit: Yes Status: Acute Assessment and plan: Hypochromic Microcytic anemia. Iron studies reveal deficiency with iron level of 8 and 2% saturation in the setting of CKD stage IIIb-IV. Received 2 units PRBC with lasix for concern for fluid overload. She has received 2 of the 3 Venofer treatments at this time. Patient reports improvement in symptoms of fatigue and SOB. Response noted in hgb currently at 7.6, will continue to trend. Reticulocyte count elevated, no need for bone marrow biopsy at this juncture unless she continues to experience persistent anemia despite adequate iron levels and aranesp administration. Continue with Aranesp administration per Dr. Tidwell. Patient denies hematuria or hematochezia, colonoscopy most recently completed in May 2016. Appreciate GI consult, patient continues to decline colonoscopy or EGD at this time. Qualifiers: Iron deficiency anemia type: other iron deficiency Qualified Code(s): D50.8 - Other iron deficiency anemias Oncology: Subj Interval history: Ms. Higginbotham denies pain. Resting in bed, no signs of distress. She reports improvement of fatigue and SOB following PRBC and iron administration. - Constitutional Vitals: Vital Signs Temp Pulse Resp BP Pulse Ox 04/08/17 14:49 98.2 F 74 14 135/62 91 04/08/17 11:18 14 96 04/08/17 11:10 98.1 F 80 14 107/58 95 04/08/17 08:00 16 98 04/08/17 07:33 97.8 F 88 14 127/77 98 04/08/17 05:04 97.9 F 62 20 111/51 90 04/07/17 23:30 16 94 04/07/17 23:00 61 18 109/57 97 04/07/17 21:41 98 04/07/17 19:47 16 98 04/07/17 19:30 97.5 F L 57 15 101/58 97 04/07/17 16:27 96.4 F L 16 115/57 93 04/07/17 15:39 18 100 Intake and Output 04/07/17 04/08/17 04/08/17 23:59 07:59 15:59 Intake Total 338 / 338 0 / 0 360 / 360 Output Total 650 / 650 300 / 300 400 / 400 Balance -312 / -312 -300 / -300 -40 / -40 Intake: Oral 0 / 0 0 / 0 360 / 360 Blood Product 338 / 338 Rbcs Leuko Poor As-1 Unit 338 / 338 [id number] Output: Urine 650 / 650 300 / 300 400 / 400 Other: Meal Lunch Percent of Meal Consumed 100% Weight 80.4 kg 80.4 kg 80.4 kg Blood Glucose* 144 85 113 Patient Weight 04/08/17 23:59 Weight 80.4 kg General appearance: cooperative, no acute distress, no febrile - Head Head exam: Present: normal inspection - Eye Eye exam: Present: PERRL - ENT ENT exam: Present: mucous membranes moist - Neck Neck exam: Present: tenderness. Absent: lymphadenopathy - Respiratory Respiratory exam: Present: wheezes - Cardiovascular Cardiovascular exam: Present: RRR - GI/Abdominal GI/Abdominal exam: Present: normal bowel sounds, soft. Absent: tenderness - Extremities Exam Extremities exam: Present: pedal edema - Expanded Lower Extremity Exam Lower leg exam: Present: swelling - Neurological Exam Neurological exam: Present: alert, oriented X3, strengths equal and symetr throughout. Absent: no focal deficits, facial droop, speech deficit Additional comments: reports occasional confusion - Psychiatric Psychiatric exam: Present: normal affect Oncology: Obj Data - Labs CBC & Chem 7: 04/08/17 03:15 04/08/17 03:15 Labs: Laboratory Results - last 24 hr 04/07/17 04/07/17 04/07/17 07:18 09:18 11:40 WBC RBC Hgb Hct MCV MCH MCHC RDW Plt Count MPV Reticulocyte # Immature Gran % Seg Neutrophils % Lymphocytes % Monocytes % Eosinophils % Basophils % Neutrophils # Lymphocytes # Monocytes # Eosinophils # Basophils # Nucleated RBCs/100 WBC Platelet Estimate Hypochromasia Percent Retic Immature Retic Fraction Retic Hgb Equivalent Sodium Potassium Chloride Carbon Dioxide BUN Creatinine Est GFR ( Amer) Est GFR (Non-Af Amer) BUN/Creatinine Ratio Glucose POC Glucose 110 H 144 H Calculated Osmolality Calcium Crossmatch See Detail 04/07/17 04/08/17 04/08/17 19:23 03:15 03:15 WBC 5.5 RBC 3.41 L Hgb 7.6 L Hct 27.8 L MCV 81.5 L MCH 22.3 L MCHC 27.3 L RDW 21.2 H Plt Count 150 MPV 9.6 Reticulocyte # Immature Gran % 3.3 Seg Neutrophils % 82.9 Lymphocytes % 6.6 Monocytes % 5.9 Eosinophils % 0.9 Basophils % 0.4 Neutrophils # 4.6 Lymphocytes # 0.4 L Monocytes # 0.3 Eosinophils # 0.1 Basophils # 0.0 Nucleated RBCs/100 WBC 1.1 H Platelet Estimate Normal Hypochromasia Present A Percent Retic Immature Retic Fraction Retic Hgb Equivalent Sodium 138 Potassium 4.1 Chloride 91 L Carbon Dioxide 41 H* BUN 32 H Creatinine 1.77 H Est GFR ( Amer) 34 L Est GFR (Non-Af Amer) 28 L BUN/Creatinine Ratio 18 Glucose 112 H POC Glucose 144 H Calculated Osmolality 294 Calcium 9.6 Crossmatch 04/08/17 03:15 WBC RBC Hgb Hct MCV MCH MCHC RDW Plt Count MPV Reticulocyte # 0.15 H Immature Gran % Seg Neutrophils % Lymphocytes % Monocytes % Eosinophils % Basophils % Neutrophils # Lymphocytes # Monocytes # Eosinophils # Basophils # Nucleated RBCs/100 WBC Platelet Estimate Hypochromasia Percent Retic 4.5 H Immature Retic Fraction 46.7 H Retic Hgb Equivalent 29.4 Sodium Potassium Chloride Carbon Dioxide BUN Creatinine Est GFR ( Amer) Est GFR (Non-Af Amer) BUN/Creatinine Ratio Glucose POC Glucose Calculated Osmolality Calcium Crossmatch - ABG Interpretation ABG results: PT/INR, D-dimer PT 11.9 Seconds (9.4-12.1) 04/03/17 08:51 Consult Discharge Plan - Plan Referrals: Francisco Melgar Jr [Primary Care Provider] - <Jarad Higginbotham - Last Filed: 04/09/17 10:17> Date of Encounter: 04/09/17 (1) Anemia Current Visit: No Status: Chronic Qualifiers: Anemia type: due to chronic kidney disease Chronic kidney disease stage: stage 3 (moderate) Qualified Code(s): N18.3 - Chronic kidney disease, stage 3 (moderate); D63.1 - Anemia in chronic kidney disease - Constitutional Vitals: Vital Signs Temp Pulse Resp BP Pulse Ox 04/09/17 08:13 16 122/56 100 04/09/17 07:34 97.7 F 64 16 122/56 98 04/09/17 04:35 16 95 04/09/17 04:00 97.5 F L 66 18 123/55 94 04/08/17 23:31 16 100 04/08/17 23:17 97.7 F 58 19 124/67 98 04/08/17 19:57 97.9 F 59 19 126/65 100 04/08/17 19:39 14 91 04/08/17 15:23 14 91 04/08/17 14:49 98.2 F 74 14 135/62 91 04/08/17 11:18 14 96 04/08/17 11:10 98.1 F 80 14 107/58 95 Intake and Output 04/09/17 04/09/17 04/09/17 00:59 08:59 16:59 Intake Total 940 / 940 500 / 500 240 / 240 Output Total 900 / 900 0 / 0 Balance 40 / 40 500 / 500 240 / 240 Intake: Oral 940 / 940 240 / 240 Free Water 500 / 500 Output: Urine 900 / 900 0 / 0 Other: Meal Dinner Breakfast Percent of Meal Consumed 85% 90% Stool Size Large Stool Consistency formed Stool Color Black Weight 78.7 kg Blood Glucose* 140 89 Patient Weight 04/10/17 00:59 Weight 78.7 kg Oncology: Obj Data - Labs CBC & Chem 7: 04/09/17 03:55 04/09/17 03:55 Labs: Laboratory Results - last 24 hr 04/08/17 04/08/17 04/08/17 07:59 11:16 16:07 WBC RBC Hgb Hct MCV MCH MCHC RDW Plt Count MPV Immature Gran % Seg Neutrophils % Lymphocytes % Monocytes % Eosinophils % Basophils % Neutrophils # Lymphocytes # Monocytes # Eosinophils # Basophils # Nucleated RBCs/100 WBC Platelet Estimate Polychromasia Hypochromasia Anisocytosis Microcytosis Macrocytosis Ovalocytes Stomatocytes Sodium Potassium Chloride Carbon Dioxide BUN Creatinine Est GFR ( Amer) Est GFR (Non-Af Amer) BUN/Creatinine Ratio Glucose POC Glucose 85 113 H 159 H Calculated Osmolality Calcium Magnesium Stool Occult Blood 04/08/17 04/09/17 04/09/17 19:59 03:55 03:55 WBC 5.7 RBC 3.51 L Hgb 8.0 L Hct 29.6 L MCV 84.3 MCH 22.8 L MCHC 27.0 L RDW 23.1 H Plt Count 138 L MPV 9.6 Immature Gran % 4.2 H Seg Neutrophils % 77.4 Lymphocytes % 8.7 Monocytes % 7.4 Eosinophils % 1.9 Basophils % 0.4 Neutrophils # 4.4 Lymphocytes # 0.5 L Monocytes # 0.4 Eosinophils # 0.1 Basophils # 0.0 Nucleated RBCs/100 WBC 0.7 H Platelet Estimate Normal Polychromasia 1+ A Hypochromasia Present A Anisocytosis 1+ A Microcytosis Present A Macrocytosis Present A Ovalocytes 1+ A Stomatocytes 1+ A Sodium 141 Potassium 3.8 Chloride 94 L Carbon Dioxide 43 H* BUN 26 H Creatinine 1.41 H Est GFR ( Amer) 44 L Est GFR (Non-Af Amer) 36 L BUN/Creatinine Ratio 18 Glucose 88 POC Glucose 140 H Calculated Osmolality 296 Calcium 8.8 Magnesium 1.9 Stool Occult Blood 04/09/17 04:30 WBC RBC Hgb Hct MCV MCH MCHC RDW Plt Count MPV Immature Gran % Seg Neutrophils % Lymphocytes % Monocytes % Eosinophils % Basophils % Neutrophils # Lymphocytes # Monocytes # Eosinophils # Basophils # Nucleated RBCs/100 WBC Platelet Estimate Polychromasia Hypochromasia Anisocytosis Microcytosis Macrocytosis Ovalocytes Stomatocytes Sodium Potassium Chloride Carbon Dioxide BUN Creatinine Est GFR ( Amer) Est GFR (Non-Af Amer) BUN/Creatinine Ratio Glucose POC Glucose Calculated Osmolality Calcium Magnesium Stool Occult Blood Negative - ABG Interpretation ABG results: PT/INR, D-dimer PT 11.9 Seconds (9.4-12.1) 04/03/17 08:51 - Attending Attestation I examined this patient and my medical decision-making was reviewed with the Advanced Practice Nurse. I agree with the documented findings, disposition and treatment plan as described except to the extent set forth below. Ms. Higginbotham is doing better. She has evidence of a reticulocytosis consistent with adequate bone marrow response to her anemia. I think with iron supplementation and erythropoietin supplementation, we can improve her hemoglobin. She is likely bleeding is the primary cause of her anemia. As her white blood cell count and platelet count are normal, and as she has a reticulocytosis, I do not think she has underlying bone marrow disorder.
--- NOTE | 2017-04-08 17:58 | Internal Med Progress Note ---
Date of Encounter: 04/08/17 Time of Encounter: 11:00 - Assessment and plan (1) Dgnlr-fu-lirsazi kidney injury Current Visit: Yes Status: Acute Assessment and plan: Creatinine 1.77 today down from 2.12 yesterday. Patient appears to have responded to albumin use and Lasix is also on hold. Nephrology following and appreciate recommendations Qualifiers: Acute renal failure type: unspecified Chronic kidney disease stage: stage 3 (moderate) Qualified Code(s): N17.9 - Acute kidney failure, unspecified; N18.3 - Chronic kidney disease, stage 3 (moderate) (2) Acute and chronic respiratory failure Current Visit: No Status: Resolved Assessment and plan: -Spectrum secondaryCurrently on 4 L nasal cannula. Qualifiers: Respiratory failure complication: hypoxia and hypercapnia Qualified Code(s) : J96.21 - Acute and chronic respiratory failure with hypoxia; J96.22 - Acute and chronic respiratory failure with hypercapnia (3) Hypothyroidism Current Visit: No Status: Chronic Assessment and plan: continue home dose of levothyroxine Qualifiers: Hypothyroidism type: unspecified Qualified Code(s): E03.9 - Hypothyroidism , unspecified (4) COPD (chronic obstructive pulmonary disease) Current Visit: Yes Status: Chronic Assessment and plan: Continue bronchodilators. On low-dose prednisone at baseline. Qualifiers: COPD type: chronic bronchitis Chronic bronchitis type: mucopurulent Qualified Code(s): J41.1 - Mucopurulent chronic bronchitis (5) RUMA (iron deficiency anemia) Current Visit: No Status: Chronic Assessment and plan: -Continue iron infusions per hematology -Patient refusing EGD -Consideration for bone marrow biopsy Qualifiers: Iron deficiency anemia type: other iron deficiency Qualified Code(s): D50.8 - Other iron deficiency anemias - Subjective Interval history: She reports is some improvement status post blood transfusion and iron infusion. - Constitutional Vitals: Temp Pulse Resp BP Pulse Ox 98.2 F 74 14 135/62 91 04/08/17 14:49 04/08/17 14:49 04/08/17 15:23 04/08/17 14:49 04/08/17 15:23 General appearance: Present: cooperative, A&O X 3, answers questions appropriately - Respiratory Respiratory exam: Present: CTAB. Absent: accessory muscle use, rales, rhonchi, wheezes - Cardiovascular Cardiovascular exam: Present: RRR, +S1, +S2. Absent: diastolic murmur, gallop, rubs, systolic murmur Internal Medicine: Result - Labs CBC & Chem 7: 04/08/17 03:15 04/08/17 03:15 Labs: Short CBC 04/08/17 Range/Units 03:15 WBC 5.5 (4.3-11.1) K/mcL Hgb 7.6 L (11.5-15.4) g/dL Hct 27.8 L (35.3-44.9) % Plt Count 150 (140-400) K/mcL Neutrophils # 4.6 (1.6-8.9) K/mcL BMP 04/08/17 03:15 Sodium 138 Potassium 4.1 Chloride 91 L Carbon Dioxide 41 H* BUN 32 H Creatinine 1.77 H Glucose 112 H Calcium 9.6 - ABG Interpretation ABG results: PT/INR, D-dimer PT 11.9 Seconds (9.4-12.1) 04/03/17 08:51 - VTE Documentation of Mechanical Device: Intermittent pneumatic compression device Consult Discharge Plan - Plan Referrals: Francisco Melgar Jr [Primary Care Provider] -
[2017-04-08] MEDS: rOPINIRole 1 MG TABLET PO SCH (21:41)
[2017-04-09 04:16] LABS: Nucleated Red Blood Cells 0.7 /100 WBC (0)
[2017-04-09 04:18] LABS: Basophils % 0.4 %; Eosinophils # 0.1 K/mcL (0.0-0.6); Eosinophils % 1.9 %; Hematocrit 29.6 % (35.3-44.9); Immature Granulocytes % 4.2 % (0-4); Lymphocytes # 0.5 K/mcL (0.6-4.6); Lymphocytes % 8.7 %; Mean Corpuscular Hemoglobin 22.8 pg (28.0-33.3); Mean Corpuscular Volume 84.3 fL (83.0-100.0); Mean Platelet Volume 9.6 fL (9.4-12.4); Monocytes # 0.4 K/mcL (0.0-1.3); Monocytes % 7.4 %; Neutrophils # 4.4 K/mcL (1.6-8.9); Platelet Count 138 K/mcL (140-400); Red Blood Count 3.51 M/mcL (3.82-4.97); Red Cell Distribution Width 23.1 % (11.5-14.5); Segmented Neutrophils % 77.4 %
[2017-04-09] MEDS: Ipratropium/Albuterol Neb 3 ML IH SCH ×5 (04:35→21:39)
[2017-04-09 04:45] LABS: Calcium 8.8 mg/dL (8.6-10.3); Magnesium 1.9 mg/dL (1.6-2.6); Potassium 3.8 mEq/L (3.5-5.1)
[2017-04-09 05:58] LABS: Hypochromasia Present (Not Present); Microcytosis Present (Not Present); Ovalocytes 1+ (Not Present); Polychromasia 1+ (Not Present); Stomatocytes 1+ (Not Present)
[2017-04-09 05:59] LABS: Anisocytosis 1+ (Not Present); Platelet Estimate Normal (Normal)
[2017-04-09 06:00] LABS: Macrocytosis Present (Not Present)
[2017-04-09] MEDS: Budesonide/Formoterol 160/4.5 MDI IH SCH ×2 (08:16→21:40)
--- NOTE | 2017-04-09 09:06 | Oncology Inp Progress Note ---
Date of Encounter: 04/09/17 Time of Encounter: 07:45 (1) Anemia Current Visit: No Status: Chronic Assessment and plan: She has multifactorial anemia related to iron deficiency as well as anemia of chronic kidney disease. She appears responding to IV iron as well as Aranesp. She will complete her course of IV iron today. Our goal ferritin will be over 200 and transferrin saturation over 20 in the setting of CK D. From our perspective, I would monitor her for one more day to ensure stability in her blood counts. If later today or tomorrow morning, her blood counts are stable, she may be discharged from our perspective. I will arrange for close follow up with Dr. Hines, her treating soa integration developer Qualifiers: Anemia type: due to chronic kidney disease Chronic kidney disease stage: stage 3 (moderate) Qualified Code(s): N18.3 - Chronic kidney disease, stage 3 (moderate); D63.1 - Anemia in chronic kidney disease Oncology: Subj Interval history: Receiving breathing treatment this morning. No acute issues. Very anxious to go home. Tolerating iron well. No bleeding she is aware of. No hemoptysis, hematemesis, hematochezia or melena. - Constitutional Vitals: Vital Signs Temp Pulse Resp BP Pulse Ox 04/09/17 08:13 16 122/56 100 04/09/17 07:34 97.7 F 64 16 122/56 98 04/09/17 04:35 16 95 04/09/17 04:00 97.5 F L 66 18 123/55 94 04/08/17 23:31 16 100 04/08/17 23:17 97.7 F 58 19 124/67 98 04/08/17 19:57 97.9 F 59 19 126/65 100 04/08/17 19:39 14 91 04/08/17 15:23 14 91 04/08/17 14:49 98.2 F 74 14 135/62 91 04/08/17 11:18 14 96 04/08/17 11:10 98.1 F 80 14 107/58 95 Intake and Output 04/09/17 04/09/17 04/09/17 00:59 08:59 16:59 Intake Total 940 / 940 500 / 500 Output Total 900 / 900 0 / 0 Balance 40 / 40 500 / 500 Intake: Oral 940 / 940 Free Water 500 / 500 Output: Urine 900 / 900 0 / 0 Other: Meal Dinner Percent of Meal Consumed 85% Stool Size Large Stool Consistency formed Stool Color Black Weight 78.7 kg Blood Glucose* 140 89 Patient Weight 04/10/17 00:59 Weight 78.7 kg General appearance: cooperative, no acute distress - Head Head exam: Present: atraumatic, normal inspection, normocephalic - Eye Eye exam: Present: normal appearance, conjuntiva pink, sclera anicteric - ENT ENT exam: Present: mucous membranes moist, normal oropharynx - Neck Neck exam: Present: full ROM, normal inspection - Respiratory Respiratory exam: Present: CTAB - Cardiovascular Cardiovascular exam: Present: RRR - GI/Abdominal GI/Abdominal exam: Present: normal bowel sounds, soft - Extremities Exam Extremities exam: Present: normal inspection - Skin Skin exam: Present: normal color Additional comments: ecchymoses about hands Oncology: Obj Data - Labs CBC & Chem 7: 04/09/17 03:55 04/09/17 03:55 Labs: Laboratory Results - last 24 hr 04/08/17 04/08/17 04/08/17 07:59 11:16 16:07 WBC RBC Hgb Hct MCV MCH MCHC RDW Plt Count MPV Immature Gran % Seg Neutrophils % Lymphocytes % Monocytes % Eosinophils % Basophils % Neutrophils # Lymphocytes # Monocytes # Eosinophils # Basophils # Nucleated RBCs/100 WBC Platelet Estimate Polychromasia Hypochromasia Anisocytosis Microcytosis Macrocytosis Ovalocytes Stomatocytes Sodium Potassium Chloride Carbon Dioxide BUN Creatinine Est GFR ( Amer) Est GFR (Non-Af Amer) BUN/Creatinine Ratio Glucose POC Glucose 85 113 H 159 H Calculated Osmolality Calcium Magnesium 04/08/17 04/09/17 04/09/17 19:59 03:55 03:55 WBC 5.7 RBC 3.51 L Hgb 8.0 L Hct 29.6 L MCV 84.3 MCH 22.8 L MCHC 27.0 L RDW 23.1 H Plt Count 138 L MPV 9.6 Immature Gran % 4.2 H Seg Neutrophils % 77.4 Lymphocytes % 8.7 Monocytes % 7.4 Eosinophils % 1.9 Basophils % 0.4 Neutrophils # 4.4 Lymphocytes # 0.5 L Monocytes # 0.4 Eosinophils # 0.1 Basophils # 0.0 Nucleated RBCs/100 WBC 0.7 H Platelet Estimate Normal Polychromasia 1+ A Hypochromasia Present A Anisocytosis 1+ A Microcytosis Present A Macrocytosis Present A Ovalocytes 1+ A Stomatocytes 1+ A Sodium 141 Potassium 3.8 Chloride 94 L Carbon Dioxide 43 H* BUN 26 H Creatinine 1.41 H Est GFR ( Amer) 44 L Est GFR (Non-Af Amer) 36 L BUN/Creatinine Ratio 18 Glucose 88 POC Glucose 140 H Calculated Osmolality 296 Calcium 8.8 Magnesium 1.9 - ABG Interpretation ABG results: PT/INR, D-dimer PT 11.9 Seconds (9.4-12.1) 04/03/17 08:51 Consult Discharge Plan - Plan Referrals: Francisco Melgar Jr [Primary Care Provider] -
[2017-04-09] MEDS: Cyanocobalamin (B-12) 1,000 MCG TABLET PO SCH (09:09)
[2017-04-09] MEDS: FLUoxetine 20 MG CAPSULE PO SCH ×2 (09:09→22:12)
[2017-04-09] MEDS: Iron Sucrose Complex 200 MG in 0.9 % Sodium Chloride 100 ML IVPB SCH (09:09)
[2017-04-09] MEDS: predniSONE 5 MG TABLET PO SCH (09:09)
[2017-04-09] MEDS: *HR* Amiodarone 200 MG TABLET PO SCH (09:09)
[2017-04-09] MEDS: Folic Acid 1 MG TABLET PO SCH (09:09)
--- NOTE | 2017-04-09 10:45 | Nephrology Progress Note ---
Date of Encounter: 04/09/17 Time of Encounter: 10:41 - Assessment and Plan (1) SON (acute kidney injury) Current Visit: No Status: Acute SON on CKD Stage IIIB, Likely Related to Prerenal Hypoperfusion in the Setting of Low Blood Pressures. Renal function continues to improve with creatinine down to 1.41, was 1.77 yesterday. Patient reports good urine output. Renal function continues to improve and her lower extremity edema is improved from yesterday but there is still trace edema present. Therefore we will increase her daily Lasix dose to 40 mg by mouth twice a day. We recommend that this is the dose that she be sent home on and that she have a follow-up BMP in 1 week. No indications for renal replacement therapy at this time. Anemia: Hemoglobin better today after receiving iron infusions and Aranesp. Likely multifactorial including severe iron deficiency, anemia related to CKD, as well as possible acute blood loss anemia. We will continue Aranesp 60 mcg weekly with the eventual goal of titrating up to every 4 weeks as an outpatient. Oncology has been consulted and has started the patient on Venofer 200 mg daily 3 days which should help the patient's iron deficiency. From a renal perspective the patient is stable for discharge. Continue to follow her renal protective strategy to avoid nephrotoxic agents including NSAIDs, IV contrast, and medications renally dosed. Will continue to follow. (2) RUMA (iron deficiency anemia) Current Visit: No Status: Chronic Qualifiers: Iron deficiency anemia type: other iron deficiency Qualified Code(s): D50.8 - Other iron deficiency anemias (3) Anemia in chronic kidney disease (CKD) Current Visit: Yes Status: Acute Qualifiers: Chronic kidney disease stage: stage 3 (moderate) Qualified Code(s): N18.3 - Chronic kidney disease, stage 3 (moderate); D63.1 - Anemia in chronic kidney disease; D63.1 - Anemia in chronic kidney disease (4) Chronic kidney disease, stage 3 Current Visit: Yes Status: Chronic (5) T2DM (type 2 diabetes mellitus) Current Visit: Yes Status: Chronic As per primary. Qualifiers: Diabetes mellitus complication status: without complication Diabetes mellitus emt intermediate insulin use: without emt intermediate use Qualified Code(s): E11.9 - Type 2 diabetes mellitus without complications (6) Metabolic alkalosis with respiratory acidosis Current Visit: No Status: Chronic Slightly worse today. Asymptomatic. Acute on chronic. Likely related to COPD and diuretic use. Subjective Principal diagnosis: SON on CKD Interval history: Patient seen and examined at bedside. Patient states that she feels back to normal today. She states she is ready to go home. She feels like her breathing and lower extremity swelling have improved. She had a normal bowel movement earlier this morning. She denies fever, chills, chest pain, shortness of breath, abdominal pain. Objective - Vital Signs Vital signs: Vital Signs Temp Pulse Resp BP Pulse Ox 04/09/17 08:13 16 122/56 100 04/09/17 07:34 97.7 F 64 16 122/56 98 04/09/17 04:35 16 95 04/09/17 04:00 97.5 F L 66 18 123/55 94 04/08/17 23:31 16 100 04/08/17 23:17 97.7 F 58 19 124/67 98 04/08/17 19:57 97.9 F 59 19 126/65 100 04/08/17 19:39 14 91 04/08/17 15:23 14 91 04/08/17 14:49 98.2 F 74 14 135/62 91 04/08/17 11:18 14 96 04/08/17 11:10 98.1 F 80 14 107/58 95 Intake and Output 04/08/17 04/09/17 04/09/17 23:59 07:59 15:59 Intake Total 940 / 940 500 / 500 240 / 240 Output Total 900 / 900 0 / 0 Balance 40 / 40 500 / 500 240 / 240 Intake: Oral 940 / 940 240 / 240 Free Water 500 / 500 Output: Urine 900 / 900 0 / 0 Other: Meal Dinner Breakfast Percent of Meal Consumed 85% 90% Stool Size Large Stool Consistency formed Stool Color Black Weight 78.7 kg Blood Glucose* 140 89 Patient Weight 04/09/17 23:59 Weight 78.7 kg - General Appearance General appearance: Present: well-developed, well-nourished, appears started age EENT: Present: ATNC, PERRL, mucous membranes moist Neck: Present: supple Respiratory: Present: clear Cardiology: Present: mid-systolic murmur, edema (Trace lower extremity), regular rate, regular rhythm, normal S1, normal S2 Gastrointestinal: Present: normoactive bowel sounds, no tenderness, no guarding Integumentary: Present: no rash, warm and dry Neurologic: Present: no focal deficit, alert and oriented x3 Musculoskeletal: Present: no erythema, no cyanosis, no clubbing Psychiatric: Present: mood/affect appropriate - Lab 04/09/17 03:55 04/09/17 03:55 Most recent lab results Calcium 8.8 mg/dL (8.6-10.3) 04/09/17 03:55 Phosphorus 3.9 mg/dL (2.3-4.7) 04/04/17 03:27 Magnesium 1.9 mg/dL (1.6-2.6) 04/09/17 03:55 - VTE Documentation of Mechanical Device: Intermittent pneumatic compression device Consult Discharge Plan - Plan Referrals: Francisco Melgar Jr [Primary Care Provider] -
[2017-04-09] MEDS: Furosemide 40 MG TABLET PO SCH ×2 (12:09→17:28)
--- NOTE | 2017-04-09 18:32 | Internal Med Progress Note ---
Date of Encounter: 04/09/17 Time of Encounter: 10:00 - Assessment and plan (1) Laqtz-pt-dyzfpgd kidney injury Current Visit: Yes Status: Acute Assessment and plan: Creatinine 1.44 today from 1.77 yesterday. Nephrology following and appreciae responded to albumte recommendations Qualifiers: Acute renal failure type: unspecified Chronic kidney disease stage: stage 3 (moderate) Qualified Code(s): N17.9 - Acute kidney failure, unspecified; N18.3 - Chronic kidney disease, stage 3 (moderate) (2) Acute and chronic respiratory failure Current Visit: No Status: Resolved Assessment and plan: -Currently on baseline home O2 at 4 L nasal cannula. Qualifiers: Respiratory failure complication: hypoxia and hypercapnia Qualified Code(s) : J96.21 - Acute and chronic respiratory failure with hypoxia; J96.22 - Acute and chronic respiratory failure with hypercapnia (3) Hypothyroidism Current Visit: No Status: Chronic Assessment and plan: continue home dose of levothyroxine Qualifiers: Hypothyroidism type: unspecified Qualified Code(s): E03.9 - Hypothyroidism , unspecified (4) COPD (chronic obstructive pulmonary disease) Current Visit: Yes Status: Chronic Assessment and plan: Continue bronchodilators. On low-dose prednisone at baseline. Qualifiers: COPD type: chronic bronchitis Chronic bronchitis type: mucopurulent Qualified Code(s): J41.1 - Mucopurulent chronic bronchitis (5) RUMA (iron deficiency anemia) Current Visit: No Status: Chronic Assessment and plan: -Completion of iron infusions today per hematology -Patient refusing EGD -Consideration for bone marrow biopsy -If hemoglobin stable on 04/10/17 will discharge home Qualifiers: Iron deficiency anemia type: other iron deficiency Qualified Code(s): D50.8 - Other iron deficiency anemias - Subjective Interval history: She reports is some improvement status post blood transfusion and iron infusion. - Constitutional Vitals: Temp Pulse Resp BP Pulse Ox 97.4 F L 63 16 121/60 97 04/09/17 15:39 04/09/17 15:39 04/09/17 16:57 04/09/17 16:57 04/09/17 16:57 General appearance: Present: cooperative, A&O X 3, answers questions appropriately - Respiratory Respiratory exam: Present: CTAB. Absent: accessory muscle use, rales, rhonchi, wheezes - Cardiovascular Cardiovascular exam: Present: RRR, +S1, +S2. Absent: diastolic murmur, gallop, rubs, systolic murmur Internal Medicine: Result - Labs CBC & Chem 7: 04/09/17 03:55 04/09/17 03:55 Labs: Short CBC 04/09/17 Range/Units 03:55 WBC 5.7 (4.3-11.1) K/mcL Hgb 8.0 L (11.5-15.4) g/dL Hct 29.6 L (35.3-44.9) % Plt Count 138 L (140-400) K/mcL Neutrophils # 4.4 (1.6-8.9) K/mcL BMP 04/09/17 03:55 Sodium 141 Potassium 3.8 Chloride 94 L Carbon Dioxide 43 H* BUN 26 H Creatinine 1.41 H Glucose 88 Calcium 8.8 - ABG Interpretation ABG results: PT/INR, D-dimer PT 11.9 Seconds (9.4-12.1) 04/03/17 08:51 - VTE Documentation of Mechanical Device: Intermittent pneumatic compression device Consult Discharge Plan - Plan Referrals: Francisco Melgar Jr [Primary Care Provider] -
[2017-04-09] MEDS: *HR* OxyCODONE/APAP 10/325 TABLET PO PRN (22:12)
[2017-04-09] MEDS: rOPINIRole 1 MG TABLET PO SCH (22:12)
[2017-04-10] MEDS: Ipratropium/Albuterol Neb 3 ML IH SCH ×7 (00:23→23:02)
[2017-04-10 07:28] LABS: BUN/Creatinine Ratio 15 (6-26); Blood Urea Nitrogen 19 mg/dL (8-23); Calcium 8.9 mg/dL (8.6-10.3); Carbon Dioxide > 45 mEq/L (23-29); Chloride 94 mEq/L (98-107); Glucose 86 mg/dL (70-105); Osmolality,Calculated 302 (280-300); Potassium 3.6 mEq/L (3.5-5.1); Sodium 145 mEq/L (136-145); eGFR For African Americans 49 (> 60); eGFR For Non-African Americans 40 (> 60)
[2017-04-10] MEDS: Budesonide/Formoterol 160/4.5 MDI IH SCH ×2 (08:14→20:27)
--- NOTE | 2017-04-10 08:49 | Nephrology Progress Note ---
Date of Encounter: 04/10/17 Time of Encounter: 08:47 - Assessment and Plan (1) SON (acute kidney injury) Current Visit: No Status: Acute Scr 1.28, GFR 40-back to baseline kidney function Nephrology signing off case BMP one week after discharge Follow up with Dr Zelaya in 8 weeks Send home on Lasix 40mg p.o. BID (2) Chronic kidney disease, stage 3 Current Visit: Yes Status: Chronic see above (3) T2DM (type 2 diabetes mellitus) Current Visit: Yes Status: Chronic per primary team Qualifiers: Diabetes mellitus complication status: with kidney complications Diabetes mellitus complication detail: with chronic kidney disease Diabetes mellitus terminologist insulin use: without half-way use Chronic kidney disease stage: stage 3 (moderate) Qualified Code(s): E11.22 - Type 2 diabetes mellitus with diabetic chronic kidney disease; N18.3 - Chronic kidney disease, stage 3 ( moderate); N18.3 - Chronic kidney disease, stage 3 (moderate) Subjective Principal diagnosis: SON on CKD Interval history: Patient seen and examined. Sitting up in chair, thinks she will be discharged today. Objective - Vital Signs Vital signs: Vital Signs Temp Pulse Resp BP Pulse Ox 04/10/17 08:15 18 99 04/10/17 06:47 97.9 F 67 18 109/61 99 04/10/17 04:32 65 18 114/67 98 04/09/17 21:40 18 99 04/09/17 20:59 98.0 F 65 20 119/59 100 04/09/17 16:57 16 121/60 97 04/09/17 15:39 97.4 F L 63 16 121/60 100 04/09/17 13:10 16 102/51 96 04/09/17 11:01 97.4 F L 63 16 102/51 100 Intake and Output 04/09/17 04/10/17 04/10/17 23:59 07:59 15:59 Intake Total 0 / 0 0 / 0 Output Total 1100 / 1100 Balance 0 / 0 -1100 / -1100 Intake: Oral 0 / 0 0 / 0 Output: Urine 1100 / 1100 Other: Stool Size Moderate # Voids 0 0 # Bowel Movements 1 Weight 79.5 kg Blood Glucose* 110 86 Patient Weight 04/10/17 23:59 Weight 79.5 kg - General Appearance General appearance: Present: well-developed, well-nourished EENT: Present: ATNC, mucous membranes moist, hearing intact, vision intact Neck: Present: supple Respiratory: Present: clear Cardiology: Present: no edema, normal S1, normal S2 Gastrointestinal: Present: no tenderness, no guarding Integumentary: Present: warm and dry Neurologic: Present: alert and oriented x3 Psychiatric: Present: mood/affect appropriate, cooperative - Lab 04/09/17 03:55 04/10/17 06:39 Most recent lab results Calcium 8.9 mg/dL (8.6-10.3) 04/10/17 06:39 Phosphorus 3.9 mg/dL (2.3-4.7) 04/04/17 03:27 Magnesium 1.9 mg/dL (1.6-2.6) 04/09/17 03:55 - VTE Documentation of Mechanical Device: Intermittent pneumatic compression device Consult Discharge Plan - Plan Referrals: Francisco Melgar Jr [Primary Care Provider] -
[2017-04-10] MEDS: Folic Acid 1 MG TABLET PO SCH (10:04)
[2017-04-10] MEDS: *HR* Amiodarone 200 MG TABLET PO SCH (10:04)
[2017-04-10] MEDS: predniSONE 5 MG TABLET PO SCH (10:04)
[2017-04-10] MEDS: Furosemide 40 MG TABLET PO SCH ×2 (10:04→19:59)
[2017-04-10] MEDS: FLUoxetine 20 MG CAPSULE PO SCH ×2 (10:04→20:41)
[2017-04-10] MEDS: Cyanocobalamin (B-12) 1,000 MCG TABLET PO SCH (10:05)
[2017-04-10 10:19] LABS: Eosinophils # 0.1 K/mcL (0.0-0.6); Hematocrit 30.3 % (35.3-44.9); Mean Corpuscular HGB Conc 26.4 g/dL (31.6-35.5); Mean Corpuscular Hemoglobin 23.2 pg (28.0-33.3); Mean Corpuscular Volume 87.8 fL (83.0-100.0); Mean Platelet Volume 10.2 fL (9.4-12.4); Nucleated Red Blood Cells 0.4 /100 WBC (0); Platelet Count 143 K/mcL (140-400); Red Blood Count 3.45 M/mcL (3.82-4.97); Red Cell Distribution Width 24.8 % (11.5-14.5)
[2017-04-10 11:12] LABS: Lymphocytes # 0.5 K/mcL (0.6-4.6); Monocytes # 0.5 K/mcL (0.0-1.3)
[2017-04-10 11:13] LABS: Anisocytosis 1+ (Not Present); Hypochromasia Present (Not Present); Platelet Estimate Slight Decrease (Normal); Polychromasia 1+ (Not Present); Schistocytes 1+ (Not Present); Spherocytes 1+ (Not Present); Stomatocytes 1+ (Not Present); Target Cells 1+ (Not Present); Tear Drop Cells 1+ (Not Present)
[2017-04-10 12:09] LABS: ABG Base Excess 19 mEq/L (-2 to 3); ABG HCO3 47 mEq/L (21-27); ABG Oxygen Saturation 99 % (95-98); ABG PCO2 79 mmHg (35-45); ABG PH 7.39 pH Units (7.32-7.45); ABG PO2 127 mmHg (85-104); ABG TCO2 50 mEq/L (20-26)
[2017-04-10] MEDS ORDERED: FLUARIX QUAD 2017-18 36MOS UP/PF 0.5 ML SYRINGE IM ONE (14:05)
--- NOTE | 2017-04-10 15:46 | Oncology Inp Progress Note ---
Date of Encounter: 04/10/17 Time of Encounter: 12:30 (1) Iron deficiency anemia Current Visit: Yes Status: Acute Assessment and plan: Multifactorial anemia related to iron deficency as well as anemia of chronic disease. Iron studies revealed a deficiency with iron level of 8 and 2% saturation in the setting of CKD stage IIIb-IV. Received 2 units PRBC with lasix for concern for fluid overload aranesp and IV Iron. She has now transitioned to oral iron and tolerating well. Recommendation made to discharge patient home with oral iron. From a hematology standpoint, her blood counts appear to have stabilized and improved at this time. She is asymptomatic of any s/s related to anemia and denies chest pain, SOB, weakness/fatigue, we will plan to sign off on patient at this time. Plan is for discharge soon once she is cleared from hospitalist group. I have arranged for her to go to the lab within one week for repeat CBC. She will follow up with Dr. Hines, her treating green chain worker, with additional blood work on May 01, she was given this appointment today as well. Would be happy to consult with patient again for any changes or concerns during hospital stay shall she not be eligible to discharge soon. Qualifiers: Iron deficiency anemia type: other iron deficiency Qualified Code(s): D50.8 - Other iron deficiency anemias Oncology: Subj Interval history: Sitting up in chair, eating lunch. Denies pain, reports feeling back to baseline. Non toxic appearing, no distress noted. She is anxious to return home. - Constitutional Vitals: Vital Signs Temp Pulse Resp BP Pulse Ox 04/10/17 12:00 97.9 F 67 18 103/61 100 04/10/17 11:32 18 100 04/10/17 08:15 18 99 04/10/17 06:47 97.9 F 67 18 109/61 99 04/10/17 04:32 65 18 114/67 98 04/09/17 21:40 18 99 04/09/17 20:59 98.0 F 65 20 119/59 100 04/09/17 16:57 16 121/60 97 Intake and Output 04/09/17 04/10/17 04/10/17 23:59 07:59 15:59 Intake Total 0 / 0 0 / 0 600 / 600 Output Total 1100 / 1100 Balance 0 / 0 -1100 / -1100 600 / 600 Intake: Oral 0 / 0 0 / 0 600 / 600 Output: Urine 1100 / 1100 Other: Meal Lunch Percent of Meal Consumed 80% Stool Size Moderate # Voids 0 0 # Bowel Movements 1 Weight 79.5 kg Blood Glucose* 110 86 131 Patient Weight 04/10/17 23:59 Weight 79.5 kg General appearance: cooperative, no acute distress, no febrile - Head Head exam: Present: normal inspection - Eye Eye exam: Present: PERRL - ENT ENT exam: Present: mucous membranes moist - Neck Neck exam: Absent: lymphadenopathy, tenderness - Respiratory Respiratory exam: Present: CTAB - Cardiovascular Cardiovascular exam: Present: RRR - GI/Abdominal GI/Abdominal exam: Present: normal bowel sounds, soft. Absent: mass, tenderness - Extremities Exam Extremities exam: Present: pedal edema - Expanded Lower Extremity Exam Lower leg exam: Present: swelling - Neurological Exam Neurological exam: Present: alert, oriented X3, strengths equal and symetr throughout - Psychiatric Psychiatric exam: Present: normal affect, normal mood - Skin Skin exam: Present: normal color Oncology: Obj Data - Labs CBC & Chem 7: 04/10/17 06:39 04/10/17 06:39 Labs: Laboratory Results - last 24 hr 04/07/17 04/09/17 04/09/17 16:38 07:37 21:04 WBC RBC Hgb Hct MCV MCH MCHC RDW Plt Count MPV Seg Neutrophils % Lymphocytes % Monocytes % Eosinophils % Neutrophils # Lymphocytes # Monocytes # Eosinophils # Nucleated RBCs/100 WBC Platelet Estimate Polychromasia Hypochromasia Anisocytosis Spherocytes Target Cells Tear Drop Cells Stomatocytes Schistocytes Sample Site ABG pH ABG pCO2 ABG pO2 ABG HCO3 ABG Total CO2 ABG O2 Saturation ABG Base Excess Luigi Test O2 Delivery Device Inspired O2 Sodium Potassium Chloride Carbon Dioxide BUN Creatinine Est GFR ( Amer) Est GFR (Non-Af Amer) BUN/Creatinine Ratio Glucose POC Glucose 144 H 89 110 H Calculated Osmolality Calcium 04/10/17 04/10/17 04/10/17 06:39 06:39 12:05 WBC 5.1 RBC 3.45 L Hgb 8.0 L Hct 30.3 L MCV 87.8 MCH 23.2 L MCHC 26.4 L RDW 24.8 H Plt Count 143 MPV 10.2 Seg Neutrophils % 78.0 Lymphocytes % 10.0 Monocytes % 10.0 Eosinophils % 2.0 Neutrophils # 4.0 Lymphocytes # 0.5 L Monocytes # 0.5 Eosinophils # 0.1 Nucleated RBCs/100 WBC 0.4 H Platelet Estimate Slight Decrease L Polychromasia 1+ A Hypochromasia Present A Anisocytosis 1+ A Spherocytes 1+ A Target Cells 1+ A Tear Drop Cells 1+ A Stomatocytes 1+ A Schistocytes 1+ A Sample Site R Radial ABG pH 7.39 ABG pCO2 79 H* ABG pO2 127 H ABG HCO3 47 H ABG Total CO2 50 H ABG O2 Saturation 99 H ABG Base Excess 19 H Luigi Test Positive O2 Delivery Device Cannula Inspired O2 36.0 Sodium 145 Potassium 3.6 Chloride 94 L Carbon Dioxide > 45 H* BUN 19 Creatinine 1.28 H Est GFR ( Amer) 49 L Est GFR (Non-Af Amer) 40 L BUN/Creatinine Ratio 15 Glucose 86 POC Glucose Calculated Osmolality 302 H Calcium 8.9 - ABG Interpretation ABG results: ABG ABG pH 7.39 pH Units (7.32-7.45) 04/10/17 12:05 ABG pCO2 79 mmHg (35-45) H* 04/10/17 12:05 ABG pO2 127 mmHg (85-104) H 04/10/17 12:05 ABG O2 Saturation 99 % (95-98) H 04/10/17 12:05 PT/INR, D-dimer PT 11.9 Seconds (9.4-12.1) 04/03/17 08:51 Consult Discharge Plan - Plan Referrals: Francisco Melgar Jr [Primary Care Provider] - 04/25/17 2:00 pm Garcia Tidwell DO [Partnered Physician] - 06/11/17 3:40 pm
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
--- NOTE | 2017-04-10 16:29 | Physician Discharge Referral ---
Home Health/Hosp Referral Info Transfer to: Home Health (please obtain serum blood BMP and CBC in 1 week) - Diagnosis (1) Hvzli-xv-xfrzavu kidney injury Status: Acute (2) Acute and chronic respiratory failure Status: Resolved (3) Hypothyroidism Status: Chronic (4) COPD (chronic obstructive pulmonary disease) Status: Chronic (5) RUMA (iron deficiency anemia) Status: Chronic - Respiratory Orders Smoking Cessation: Smoking cessation has been advised. For more information, call the [place] Tobacco Quit Line at 9-325-HJBD-NOW. - Services Needed Following services are medically necessary services: Care Home Care Orders: please obtain serum blood BMP and CBC in 1 week - Transfer Medications Prescriptions: Furosemide [Lasix] 40 mg PO BIDDIURETIC #60 tablet Home Medications: Budesonide/Formoterol 160/4.5 [Symbicort] 2 puff IH BID 01/30/15 [History] FLUoxetine HCl [Prozac] 20 mg PO BID 01/30/15 [History] Oxycodone HCl/Acetaminophen [Percocet 10-325 mg Tablet] 1 tab PO Q6H PRN [History] Allopurinol [Zyloprim 300 MG] 300 mg PO DAILY 01/12/16 [History] Ropinirole HCl [Requip] 4 mg PO HS 01/12/16 [History] Calcium Carbonate [Calcium] 1,500 mg PO BID 04/22/16 [History] Ipratropium/Albuterol Neb [Duoneb] 3 ml IH Q6HR PRN 04/22/16 [History] Levothyroxine [Synthroid] 50 mcg PO DAILY 04/22/16 [History] Oxygen 4 l NS CONT 04/22/16 [History] Folic Acid 1 mg PO DAILY 05/28/16 [History] Ferrous Sulfate 325 mg PO BIDWM #60 tablet 06/06/16 [Rx] Ranitidine HCl [Acid Channel Supervisor] 150 mg PO BID 07/12/16 [History] Albuterol Sulfate [Ventolin Hfa] 1 - 2 puff IH Q4-6H PRN 10/14/16 [History] Potassium Chloride [K-Tab ER] 40 meq PO QPM 10/14/16 [History] Potassium Chloride [K-Tab ER] 60 meq PO QAM 10/14/16 [History] Umeclidinium [place] [Incruse Ellipta] 1 puff IH DAILY 10/14/16 [History] Amiodarone [Cordarone] 200 mg PO BID 12/29/16 [History] Sacubitril/Valsartan 24/26 mg [Entresto 24 mg-26 mg Tablet] 1 tab PO BID [History] predniSONE [PredniSONE] 5 mg PO DAILY 04/03/17 [History] Furosemide [Lasix] 40 mg PO BIDDIURETIC #60 tablet 04/10/17 [Rx] Allergies/Adverse Reactions: 3 Allergy/AdvReac Type Severity Reaction Status Date / Time albuterol Allergy Drowsy Verified 10/13/16 14:47 gabapentin Allergy Hallucinati Verified 10/13/16 14:47 ng Penicillins Allergy Hives Verified 10/13/16 14:47 Sulfa (Sulfonamide Allergy Hives Verified 10/13/16 14:47 Antibiotics) jello AdvReac Nausea Uncoded 10/13/16 14:47 Certification: Further, I certify that my clinical findings support that this patient is homebound (i.e. absences from home require considerable and taxing effort and are for medical reasons or sikh services or infrequently or short duration when for other reasons) because: Homebound Reason: Leaving home requires considerable and taxing effort due to condition Attestation: My signature below is to certify that this patient is under my care and that I, or nurse practitioner, or a physician's administrative services assistant working with me, has a face-to -face encounter with this patient.
[2017-04-10] MEDS: rOPINIRole 1 MG TABLET PO SCH (20:41)
[2017-04-10] MEDS: *HR* OxyCODONE/APAP 10/325 TABLET PO PRN (22:37)
[2017-04-11] MEDS: Ipratropium/Albuterol Neb 3 ML IH SCH ×3 (03:32→11:18)
[2017-04-11 09:49] LABS: Basophils % 0.2 %; Eosinophils # 0.2 K/mcL (0.0-0.6); Eosinophils % 2.7 %; Hematocrit 30.5 % (35.3-44.9); Hemoglobin 8.2 g/dL (11.5-15.4); Immature Granulocytes % 1.8 % (0-4); Lymphocytes # 0.6 K/mcL (0.6-4.6); Lymphocytes % 11.3 %; Mean Corpuscular HGB Conc 26.9 g/dL (31.6-35.5); Mean Corpuscular Hemoglobin 23.6 pg (28.0-33.3); Mean Corpuscular Volume 87.6 fL (83.0-100.0); Mean Platelet Volume 9.3 fL (9.4-12.4); Monocytes # 0.5 K/mcL (0.0-1.3); Monocytes % 8.5 %; Neutrophils # 4.3 K/mcL (1.6-8.9); Platelet Count 122 K/mcL (140-400); Red Blood Count 3.48 M/mcL (3.82-4.97); Red Cell Distribution Width 25.3 % (11.5-14.5); Segmented Neutrophils % 75.5 %
[2017-04-11] MEDS: FLUoxetine 20 MG CAPSULE PO SCH (10:14)
[2017-04-11] MEDS: Cyanocobalamin (B-12) 1,000 MCG TABLET PO SCH (10:14)
[2017-04-11] MEDS: *HR* Amiodarone 200 MG TABLET PO SCH (10:14)
[2017-04-11] MEDS: Furosemide 40 MG TABLET PO SCH (10:14)
[2017-04-11] MEDS: predniSONE 5 MG TABLET PO SCH (10:15)
[2017-04-11] MEDS: Folic Acid 1 MG TABLET PO SCH (10:15)
[2017-04-11 10:37] LABS: Potassium 3.7 mEq/L (3.5-5.1)
[2017-04-11 10:38] LABS: Anisocytosis 2+ (Not Present); Hypochromasia Present (Not Present); Microcytosis Present (Not Present)
[2017-04-11 10:39] LABS: Platelet Estimate Normal (Normal)
[2017-04-11] MEDS: Budesonide/Formoterol 160/4.5 MDI IH SCH (11:17)
[2017-04-11 11:40] VITALS: BP 145/82
--- NOTE | 2017-04-11 14:37 | Event Note ---
Date of Encounter: 04/11/17 Time of Encounter: 11:00 Patient was discharged home today after monitoring overnight for PVCs. Occasional PVCs noted but patient has ICD and is asymptomatic She will be discharged home.
== END 2017-04-11 13:28 | disposition home health service (06) | DRG 291 ==
LOC: 2NENU 17:55 → EMEROO 17:55 → 2NENU 22:19 → SUATTDRO 04-03 03:17
PROVIDERS: ADMIT Internal Medicine Hematology & Oncology; ATTEND Hospitalist

== ENCOUNTER 2017-06-02 19:47 | Inpatient (IN) ==
[2017-06-02 20:37] LABS: Bilirubin,Urine Negative (Negative); Blood,Urine Negative (Negative); Clarity,Urine Clear (Clear); Color,Urine Yellow (Yellow); Glucose,Urine (UA) Normal (Normal); Ketones,Urine Negative (Negative); Leukocyte Esterase,Urine Negative (Negative); Nitrite,Urine Negative (Negative); PH,Urine 6.5 pH Units (5.0-8.0); Protein,Urine Negative (Neg-Trace); Specific Gravity,Urine 1.016 (1.010-1.025); Urobilinogen,Urine Normal (Normal)
[2017-06-02] MEDS ORDERED: 0.9 % Sodium Chloride 1,000 ML IVC SCH (20:45)
[2017-06-02 20:53] LABS: Basophils % 0.3 %; Eosinophils # 0.1 K/mcL (0.0-0.6); Eosinophils % 1.2 %; Hematocrit 23.4 % (35.3-44.9); Immature Granulocytes % 0.6 % (0-4); Lymphocytes # 0.3 K/mcL (0.6-4.6); Lymphocytes % 3.9 %; Mean Corpuscular HGB Conc 29.1 g/dL (31.6-35.5); Mean Corpuscular Hemoglobin 29.8 pg (28.0-33.3); Mean Corpuscular Volume 102.6 fL (83.0-100.0); Mean Platelet Volume 10.3 fL (9.4-12.4); Monocytes # 0.5 K/mcL (0.0-1.3); Monocytes % 7.2 %; Neutrophils # 5.8 K/mcL (1.6-8.9); Platelet Count 127 K/mcL (140-400); Red Blood Count 2.28 M/mcL (3.82-4.97); Red Cell Distribution Width 17.1 % (11.5-14.5); Segmented Neutrophils % 86.8 %
[2017-06-02 21:18] LABS: Alanine Aminotransferase 9 Units/L (7-52); Albumin 3.4 g/dL (3.5-5.7); Albumin/Globulin Ratio 1.4 (1.1-2.2); Alkaline Phosphatase 76 Units/L (34-104); Aspartate Amino Transferase 14 Units/L (13-39); BUN/Creatinine Ratio 20 (6-26); Bilirubin,Total 0.4 mg/dL (0.3-1.0); Blood Urea Nitrogen 24 mg/dL (8-23); Calcium 8.8 mg/dL (8.6-10.3); Carbon Dioxide > 45 mEq/L (23-29); Chloride 90 mEq/L (98-107); Globulin 2.5 g/dL (2.4-3.5); Glucose 152 mg/dL (70-105); Magnesium 1.9 mg/dL (1.6-2.6); Osmolality,Calculated 301 (280-300); Potassium 3.4 mEq/L (3.5-5.1); Sodium 142 mEq/L (136-145); Total Protein 5.9 g/dL (6.4-8.9); eGFR For African Americans 52 (> 60); eGFR For Non-African Americans 43 (> 60)
[2017-06-02 21:19] LABS: Hemoglobin 6.8 g/dL (11.5-15.4)
--- NOTE | 2017-06-02 22:09 | Emergency Department Note ---
Disposition Clinical Impression: Anemia Qualifiers: Anemia type: other cause Other causes of anemia: acute posthemorrhagic Qualified Code(s): D62 - Acute posthemorrhagic anemia Disposition: Admitted As Inpatient Condition: Fair General Adult HPI - General Chief complaint: ED Weakness Stated complaint: Weakness Time Seen by Provider: 06/02/17 20:32 Source: patient, EMS Mode of arrival: ambulatory Nursing Notes Reviewed: Yes Vital Signs Reviewed: Yes - History of Present Illness HPI Narrative: Patient presents today for evaluation of weakness. Patient states weakness started yesterday and describes as generalized weakness. Patient is a COPD requiring 4 L of home oxygen at home. Patient has not had any chest pain or difficulty with breathing. Patient has no abdominal pain or changes in bowel movements. No dysuria. Pain Scale: 2 - Related Data Home Medications Medication Instructions Recorded Confirmed Budesonide/Formoterol 160/4.5 2 puff IH BID 01/30/15 05/14/17 [Symbicort] FLUoxetine HCl [Prozac] 20 mg PO BID 01/30/15 05/14/17 Oxycodone HCl/Acetaminophen 1 tab PO Q6H PRN 08/12/15 05/14/17 [Percocet 10-325 mg Tablet] Allopurinol [Zyloprim 300 MG] 300 mg PO DAILY 01/12/16 05/14/17 Ropinirole HCl [Requip] 4 mg PO HS 01/12/16 05/14/17 Calcium Carbonate [Calcium] 1,500 mg PO BID 04/22/16 05/14/17 Ipratropium/Albuterol Neb [Duoneb] 3 ml IH Q6HR PRN 04/22/16 05/14/17 Levothyroxine [Synthroid] 50 mcg PO DAILY 04/22/16 05/14/17 Oxygen 4 l NS CONT 04/22/16 05/14/17 Folic Acid 1 mg PO DAILY 05/28/16 05/14/17 Ranitidine HCl [Acid [place]] 150 mg PO BID 07/12/16 05/14/17 Albuterol Sulfate [Ventolin Hfa] 1 - 2 puff IH Q4-6H PRN 10/14/16 05/14/17 Umeclidinium [place] [Incruse 1 puff IH DAILY 10/14/16 05/14/17 Ellipta] Amiodarone [Cordarone] 200 mg PO BID 12/29/16 05/14/17 metFORMIN [Glucophage] 500 mg PO BIDWM 05/01/17 05/14/17 Previous Rx's Medication Instructions Recorded Ferrous Sulfate 325 mg PO TIDWM #90 tablet 04/10/17 Furosemide [Lasix] 40 mg PO BIDDIURETIC #60 tablet 04/10/17 Levothyroxine [Synthroid] 1 tab PO DAILY #30 tablet 05/14/17 Allergies Allergy/AdvReac Type Severity Reaction Status Date / Time albuterol Allergy Drowsy Verified 05/14/17 11:11 gabapentin Allergy Hallucinati Verified 05/14/17 11:11 ng Penicillins Allergy Hives Verified 05/14/17 11:11 Sulfa (Sulfonamide Allergy Hives Verified 05/14/17 11:11 Antibiotics) jello AdvReac Nausea Uncoded 05/14/17 11:11 Review of Systems: CONSTITUTIONAL: Chills, weakness, fatigue No weight loss, fever HEENT: Eyes: No visual changes. Ears, Nose, Throat: No hearing loss, difficulty talking or unable to swallow. SKIN: No rash or itching. CARDIOVASCULAR: No chest pain, chest pressure or chest discomfort. No palpitations or edema. RESPIRATORY: No shortness of breath, cough or sputum. GASTROINTESTINAL: No anorexia, nausea, vomiting or diarrhea. No abdominal pain or blood. GENITOURINARY: No burning on urination or hematuria. NEUROLOGICAL: Weakness No headache, dizziness, syncope, paralysis, ataxia, numbness or tingling in the extremities. No change in bowel or bladder control. MUSCULOSKELETAL: No muscle pain, back pain, joint pain or stiffness. Past Medical History - Past Medical History Medical history: Reports: asthma, atrial fibrillation, cancer, cardiomyopathy, CHF, COPD, GERD, GI bleed, thyroid disease, valvular heart disease, other Surgical history: Reports: appendectomy, breast surgery, cancer surgery, heart valve replacement, hysterectomy, pacemaker/AICD Psychiatric history: Reports: anxiety, depression DESIGN STUDIO CONSULTANT history: Reports: no DESIGN STUDIO CONSULTANT history - Social History Smoking Status: Former smoker Smokeless Tobacco Status: No Alcohol use: Reports: none Drug use: Reports: none Physical Exam General: Well appearing, nontoxic, no acute distress Head: Normocephalic Atraumatic Eyes: PERRL, EOMI; stye to the left upper eyelid ENT: Airway patent, no stridor Neck: supple, no meningismus Chest: Lungs clear to auscultation bilateral Cardiac: Regular rate and rhythm, no murmurs, rubs or gallops Abdomen: soft, nontender, nondistended; no guarding, rebound, or tenderness to percussion Musculoskeletal: Calves symmetric, nontender, no palpable cord Skin: No rash, normal skin tone Neuro: Alert and Oriented to person, place, and time; No focal deficit, CN 2-12 symmetric and intact - General General appearance: alert, in no apparent distress Course - Reevaluation(s) Reevaluation #1: Patient with anemia. Likely explains generalized weakness with no other specific complaints. Patient educated about need for further investigation you know she has refused in the past. Patient seems to understand. Patient agrees to blood transfusion and further workup at this time. - Consultations Consultation #1: Discussed with hospitalist. Patient accepted for admission. Vital Signs Temperature 98.2 F 06/02/17 19:49 Pulse Rate 64 06/02/17 19:49 Respiratory Rate 19 06/02/17 19:49 Blood Pressure 111/66 06/02/17 19:49 O2 Sat by Pulse Oximetry 100 06/02/17 19:49 Temperature 97.3 F L 06/03/17 06:27 Pulse Rate 54 06/03/17 06:27 Respiratory Rate 16 06/03/17 06:27 Blood Pressure 109/68 06/03/17 06:27 O2 Sat by Pulse Oximetry 96 06/03/17 06:27 Oxygen Delivery Oxygen Delivery Nasal Cannula Medical Decision Making - Lab Data Result diagrams: 06/03/17 06:43 06/03/17 05:42 Lab Results 06/02/17 06/02/17 06/02/17 Range/Units 20:25 20:40 20:40 WBC 6.7 (4.3-11.1) K/mcL RBC 2.28 L (3.82-4.97) M/mcL Hgb 6.8 L (11.5-15.4) g/dL Hct 23.4 L (35.3-44.9) % MCV 102.6 H (83.0-100.0) fL MCH 29.8 (28.0-33.3) pg MCHC 29.1 L (31.6-35.5) g/dL RDW 17.1 H (11.5-14.5) % Plt Count 127 L (140-400) K/mcL MPV 10.3 (9.4-12.4) fL Immature Gran % 0.6 (0-4) % Seg Neutrophils % 86.8 % Lymphocytes % 3.9 % Monocytes % 7.2 % Eosinophils % 1.2 % Basophils % 0.3 % Neutrophils # 5.8 (1.6-8.9) K/mcL Lymphocytes # 0.3 L (0.6-4.6) K/mcL Monocytes # 0.5 (0.0-1.3) K/mcL Eosinophils # 0.1 (0.0-0.6) K/mcL Basophils # 0.0 (0.0-0.2) K/mcL Sodium 142 (136-145) mEq/L Potassium 3.4 L (3.5-5.1) mEq/L Chloride 90 L (98-107) mEq/L Carbon Dioxide > 45 H* (23-29) mEq/L BUN 24 H (8-23) mg/dL Creatinine 1.22 H (0.60-1.20) mg/dL Est GFR ( Amer) 52 L (> 60) Est GFR (Non-Af Amer) 43 L (> 60) BUN/Creatinine Ratio 20 (6-26) Glucose 152 H (70-105) mg/dL Calculated Osmolality 301 H (280-300) Calcium 8.8 (8.6-10.3) mg/dL Magnesium 1.9 (1.6-2.6) mg/dL Total Bilirubin 0.4 (0.3-1.0) mg/dL AST 14 (13-39) Units/L ALT 9 (7-52) Units/L Alkaline Phosphatase 76 (34-104) Units/L Troponin I (< 0.04) ng/mL Serum Total Protein 5.9 L (6.4-8.9) g/dL Albumin 3.4 L (3.5-5.7) g/dL Globulin 2.5 (2.4-3.5) g/dL Albumin/Globulin Ratio 1.4 (1.1-2.2) Urine Color Yellow (Yellow) Urine Clarity Clear (Clear) Urine pH 6.5 (5.0-8.0) pH Units Ur Specific [place] 1.016 (1.010-1.025) Urine Protein Negative (Neg-Trace) mg/dL Urine Glucose (UA) Normal (Normal) mg/dL Urine Ketones Negative (Negative) mg/dL Urine Blood Negative (Negative) Urine Nitrite Negative (Negative) Urine Bilirubin Negative (Negative) Urine Urobilinogen Normal (Normal) mg/dL Ur Leukocyte Esterase Negative (Negative) Ur Culture Indicated? NO (NO) Stool Occult Blood (Negative) Blood Type Antibody Screen Crossmatch 06/02/17 06/02/17 06/02/17 Range/Units 20:40 22:04 22:17 WBC (4.3-11.1) K/mcL RBC (3.82-4.97) M/mcL Hgb (11.5-15.4) g/dL Hct (35.3-44.9) % MCV (83.0-100.0) fL MCH (28.0-33.3) pg MCHC (31.6-35.5) g/dL RDW (11.5-14.5) % Plt Count (140-400) K/mcL MPV (9.4-12.4) fL Immature Gran % (0-4) % Seg Neutrophils % % Lymphocytes % % Monocytes % % Eosinophils % % Basophils % % Neutrophils # (1.6-8.9) K/mcL Lymphocytes # (0.6-4.6) K/mcL Monocytes # (0.0-1.3) K/mcL Eosinophils # (0.0-0.6) K/mcL Basophils # (0.0-0.2) K/mcL Sodium (136-145) mEq/L Potassium (3.5-5.1) mEq/L Chloride (98-107) mEq/L Carbon Dioxide (23-29) mEq/L BUN (8-23) mg/dL Creatinine (0.60-1.20) mg/dL Est GFR ( Amer) (> 60) Est GFR (Non-Af Amer) (> 60) BUN/Creatinine Ratio (6-26) Glucose (70-105) mg/dL Calculated Osmolality (280-300) Calcium (8.6-10.3) mg/dL Magnesium (1.6-2.6) mg/dL Total Bilirubin (0.3-1.0) mg/dL AST (13-39) Units/L ALT (7-52) Units/L Alkaline Phosphatase (34-104) Units/L Troponin I 0.03 (< 0.04) ng/mL Serum Total Protein (6.4-8.9) g/dL Albumin (3.5-5.7) g/dL Globulin (2.4-3.5) g/dL Albumin/Globulin Ratio (1.1-2.2) Urine Color (Yellow) Urine Clarity (Clear) Urine pH (5.0-8.0) pH Units Ur Specific [place] (1.010-1.025) Urine Protein (Neg-Trace) mg/dL Urine Glucose (UA) (Normal) mg/dL Urine Ketones (Negative) mg/dL Urine Blood (Negative) Urine Nitrite (Negative) Urine Bilirubin (Negative) Urine Urobilinogen (Normal) mg/dL Ur Leukocyte Esterase (Negative) Ur Culture Indicated? (NO) Stool Occult Blood Positive A (Negative) Blood Type O POSITIVE Antibody Screen NEGATIVE Crossmatch See Detail Attestation Statement - Attestation Attestation: I, Fadi Nathan MD, personally evaluated this patient and discussed their management with the resident physician. I reviewed the resident's note and agree with the documented findings, medical decision making, and plan of care. 76-year-old female presents to the emergency department with a complaint of increased generalized weakness for 2 days prior to arrival. She denies any chest pain or shortness of breath. No cough or fever. No abdominal pain. No nausea or vomiting or diarrhea. No urinary symptoms. She denies any melena or hematochezia however on rectal exam per Dr. Olivera the stool was black with a maroon color. Her workup revealed a hemoglobin of 6.8. She does have a history of anemia requiring blood transfusions states they could never find where she was bleeding from. On examination patient is a well-developed well-nourished elderly female in no acute distress. She is alert and oriented 3. There is no cyanosis or diaphoresis. Breath sounds are decreased but equal bilaterally. Heart regular rate and rhythm with a grade 2/6 systolic murmur. Abdomen is soft and nontender with present bowel sounds. Labs reviewed. Hemoglobin 6.8. Chest x-ray shows probable mild CHF. EKG shows a normal sinus rhythm with a heart rate of 60. Right bundle branch block. The hospitalist, Dr. Hawkins, was consulted and accepted admission of the patient.
[2017-06-02] MEDS ORDERED: Naloxone 0.4 MG/ML INJ IVP PRN (23:33)
[2017-06-02] MEDS ORDERED: *HR* Promethazine 25 MG/ML VIAL IVP PRN (23:33)
[2017-06-02] MEDS ORDERED: Acetaminophen 325 MG TABLET PO PRN (23:33)
[2017-06-03] MEDS: Pantoprazole 40 MG VIAL IVP SCH ×3 (01:05→16:48)
[2017-06-03] MEDS ORDERED: Furosemide 20 MG TABLET PO PRN (02:00)
--- NOTE | 2017-06-03 05:02 | Internal Med History&Physical ---
Date of Encounter: 06/02/17 Time of Encounter: 23:50 Assessment and Plan (1) Acute blood loss anemia Current visit: No Status: Acute Admit the pt into Tele She does have symptomatic anemia with Hb @ 6.8 will give 2 U PRBC with Lasix 20mg in between close monitoring of Hb She had h/o GI bleed hold anti platelets consult GI in AM.. Pt requested for other provider than Dr. Rojo so will check with Dr. Zelaya in AM Protonix 40 IV BID check Iron profile in AM..if low Iron will give IV Iron (2) Angiodysplasia of colon with hemorrhage Current visit: No Status: Acute reviewed colonoscopy from 06/07 showed internal hemorrhoids and colonic angioectasia treated with APC Definitely need f/u EGD and Colonoscopy Will consult Gi in AM (3) Chronic systolic heart failure Current visit: No Status: Acute stable not in exacerbation Holding lasix for now due to NPO (4) GI bleed Current visit: No Status: Acute Qualifiers: GI bleed type/associated pathology: unspecified gastrointestinal hemorrhage type Qualified Code(s): K92.2 - Gastrointestinal hemorrhage, unspecified (5) Iron deficiency anemia Current visit: No Status: Acute Qualifiers: Iron deficiency anemia type: other iron deficiency Qualified Code(s): D50.8 - Other iron deficiency anemias (6) Atrial fibrillation Current visit: No Status: Chronic rate controlled with Amiodarone not on any anti coag Qualifiers: Atrial fibrillation type: paroxysmal Qualified Code(s): I48.0 - Paroxysmal atrial fibrillation (7) COPD (chronic obstructive pulmonary disease) Current visit: No Status: Chronic not in exacerbation on 4 lit o2 resumed home INH Qualifiers: COPD type: chronic bronchitis Chronic bronchitis type: mucopurulent Qualified Code(s): J41.1 - Mucopurulent chronic bronchitis (8) Chronic kidney disease, stage 3 Current visit: No Status: Chronic (9) Chronic respiratory failure with hypoxia Current visit: No Status: Chronic (10) Diabetes Current visit: No Status: Chronic Qualifiers: Diabetes mellitus type: other specified (including [place]) Diabetes mellitus complication status: with kidney complications Diabetes mellitus complication detail: with chronic kidney disease Diabetes mellitus prison insulin use: without intermediate designer use Chronic kidney disease stage: stage 3 (moderate) Qualified Code(s): 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 Higginbotham is a 76 year old female with known PMH of Asthma, paroxysmal atrial fibrillation, breast cancer, systolic CHF, COPD on 4 lit homeO2, GERD, GI bleed , hypothyroidism, s/p bio prosthetic AV replacement in 2012, and chronic Iron def anemia follows with Heme Onc, who had colonoscopy in 05/2016 showed colonic angioectasia treated with APC, internal hemorrhoids, pt presented to ER tonight c/o generalized weakness, and lethargic since y/d. She denied any CP, does c/o sob and PARSONS. No abdominal pain, denied any melena / dark colored stools / bright red blood per rectum. However her Hb came back as 6.8 and stool hemoccult came back as positive. Past Med Surg Social Fam HX - Past Medical History Medical history: asthma, atrial fibrillation, cancer, cardiomyopathy, CHF, COPD , GERD, GI bleed, thyroid disease, valvular heart disease, other Psychiatric history: anxiety, depression - Past Surgical History Surgical History: appendectomy, breast surgery, cancer surgery, heart valve replacement, hysterectomy, pacemaker/AICD - Social History Smoking Status: Former smoker Smokeless Tobacco Status: No Alcohol use: none Drug use: none - Family History Mother Family Member Ethnicity: Non- Living Status: Hx Family Cardiac Disorders: No Hx Family Respiratory Disorders: No Hx Family Cancer: Yes Hx Family GI Disorders: No Hx Family Endocrine Disorder: No Hx Family Neuromuscular Disorders: No Hx Family Neurologic Disorders: No Hx Family HEENT Disorders: No Hx Family Autoimmune Disorders: No Father Living Status: Hx Family Cardiac Disorders: Yes Hx Family Respiratory Disorders: No Hx Family Cancer: Yes Hx Family GI Disorders: No Hx Family Endocrine Disorder: No Hx Family Neuromuscular Disorders: No Hx Family Neurologic Disorders: No Hx Family HEENT Disorders: No Hx Family Autoimmune Disorders: No Internal Medicine - H&P: Meds Budesonide/Formoterol 160/4.5 [Symbicort] 2 puff IH BID 01/30/15 [History] FLUoxetine HCl [Prozac] 20 mg PO BID 01/30/15 [History] Oxycodone HCl/Acetaminophen [Percocet 10-325 mg Tablet] 1 tab PO Q6H PRN [History] Allopurinol [Zyloprim 300 MG] 300 mg PO DAILY 01/12/16 [History] Ropinirole HCl [Requip] 4 mg PO HS 01/12/16 [History] Calcium Carbonate [Calcium] 1,500 mg PO BID 04/22/16 [History] Ipratropium/Albuterol Neb [Duoneb] 3 ml IH Q6HR PRN 04/22/16 [History] Levothyroxine [Synthroid] 50 mcg PO DAILY 04/22/16 [History] Oxygen 4 l NS CONT 04/22/16 [History] Folic Acid 1 mg PO DAILY 05/28/16 [History] Ranitidine HCl [Acid Wrist Liner] 150 mg PO BID 07/12/16 [History] Albuterol Sulfate [Ventolin Hfa] 1 - 2 puff IH Q4-6H PRN 10/14/16 [History] Umeclidinium [place] [Incruse Ellipta] 1 puff IH DAILY 10/14/16 [History] Amiodarone [Cordarone] 200 mg PO BID 12/29/16 [History] Ferrous Sulfate 325 mg PO TIDWM #90 tablet 04/10/17 [Rx] Furosemide [Lasix] 40 mg PO BIDDIURETIC #60 tablet 04/10/17 [Rx] metFORMIN [Glucophage] 500 mg PO BIDWM 05/01/17 [History] Levothyroxine [Synthroid] 1 tab PO DAILY #30 tablet 05/14/17 [Rx] 3 Allergy/AdvReac Type Severity Reaction Status Date / Time albuterol Allergy Drowsy Verified 05/14/17 11:11 gabapentin Allergy Hallucinati Verified 05/14/17 11:11 ng Penicillins Allergy Hives Verified 05/14/17 11:11 Sulfa (Sulfonamide Allergy Hives Verified 05/14/17 11:11 Antibiotics) jello AdvReac Nausea Uncoded 05/14/17 11:11 All Systems PM: A 10-system review of systems was performed and is negative for pertinent findings except as documented above in the HPI. Review of systems: All the systems are reviewed everything is benign except the systems and symptoms I mentioned in the history of present illness - Constitutional Vitals: Temp Pulse Resp BP Pulse Ox 97.8 F 57 17 106/54 90 06/03/17 04:23 06/03/17 04:23 06/03/17 04:23 06/03/17 04:23 06/03/17 04:23 General appearance: Present: A&O X 3, answers questions appropriately Exam: Looks pale, weak and very lethargic - Head Head exam: Present: atraumatic, normal inspection - Neck Neck exam general surgery: Present: supple - Respiratory Respiratory exam: Present: decreased breath sounds. Absent: rales, respiratory distress, rhonchi, wheezes - Cardiovascular Cardiovascular exam: Present: RRR, +S1, +S2, systolic murmur. Absent: tachycardia - GI/Abdominal GI/Abdominal exam: Present: normal bowel sounds, soft. Absent: distended, guarding, rebound, rigid, splenomegaly - Extremities Exam Extremities exam: Absent: calf tenderness, pedal edema, tenderness - Back Exam Back exam: Absent: CVA tenderness (L), CVA tenderness (R) - Neurological Exam Neurological exam: Present: alert, oriented X3, no focal deficits. Absent: speech deficit - Psychiatric Psychiatric exam: Present: normal affect, normal mood - Skin Skin exam: Present: pallor. Absent: rash Internal Med - H&P Results - Labs CBC & Chem 7: 06/02/17 20:40 06/02/17 20:40
[2017-06-03] MEDS ORDERED: Ipratropium/Albuterol Neb 3 ML IH PRN (05:09)
[2017-06-03] MEDS ORDERED: NON-FORMULARY MEDICATION 1 EACH EACH (Oxygen [Oxygen] 4 L) NS SCH (05:15)
[2017-06-03 06:24] LABS: Calcium 8.4 mg/dL (8.6-10.3); Chol/HDL Ratio 2.8 (0-4.9); Magnesium 1.8 mg/dL (1.6-2.6); Potassium 3.6 mEq/L (3.5-5.1)
[2017-06-03 06:52] LABS: Basophils % 0.4 %; Eosinophils # 0.1 K/mcL (0.0-0.6); Eosinophils % 1.9 %; Hematocrit 24.1 % (35.3-44.9); Hemoglobin 7.1 g/dL (11.5-15.4); Immature Granulocytes % 1.9 % (0-4); Immature Platelets 4.4 % (1.1-6.1); Lymphocytes # 0.6 K/mcL (0.6-4.6); Lymphocytes % 10.9 %; Mean Corpuscular HGB Conc 29.5 g/dL (31.6-35.5); Mean Corpuscular Hemoglobin 29.3 pg (28.0-33.3); Mean Corpuscular Volume 99.6 fL (83.0-100.0); Mean Platelet Volume 10.5 fL (9.4-12.4); Monocytes # 0.7 K/mcL (0.0-1.3); Monocytes % 13.2 %; Neutrophils # 3.7 K/mcL (1.6-8.9); Nucleated Red Blood Cells 0.6 /100 WBC (0); Platelet Count 116 K/mcL (140-400); Red Blood Count 2.42 M/mcL (3.82-4.97); Red Cell Distribution Width 17.3 % (11.5-14.5); Segmented Neutrophils % 71.7 %
--- NOTE | 2017-06-03 07:51 | Internal Med Progress Note ---
Date of Encounter: 06/03/17 Time of Encounter: 07:48 - Assessment and plan (1) Acute blood loss anemia Current Visit: No Status: Acute Assessment and plan: Acute blood loss anemia likely secondary to GI bleed Hemoccult was positive, received 1 unit of blood and hemoglobin is still 7.1, having symptoms of anemia Patient does not want to be scoped by Dr. Rojo but is okay seen Dr. Zelaya IV fluids Transfuse 1 more unit of red blood cells, continue Protonix IV Monitor CBC Check hemoglobin A1c with a possible history of diabetes (2) Iron deficiency anemia secondary to blood loss (chronic) Current Visit: No Status: Acute (3) Atrial fibrillation Current Visit: No Status: Chronic Assessment and plan: Not on anticoagulation Continue amiodarone Qualifiers: Atrial fibrillation type: chronic Qualified Code(s): I48.2 - Chronic atrial fibrillation (4) Breast cancer, left Current Visit: No Status: Chronic Qualifiers: Breast location: unspecified site of breast Estrogen receptor status: unspecified Patient sex: female Qualified Code(s): C50.912 - Malignant neoplasm of unspecified site of left female breast (5) COPD (chronic obstructive pulmonary disease) Current Visit: No Status: Chronic Assessment and plan: No exacerbation, history of chronic respiratory failure Continue oxygen at 4 L continuously Qualifiers: COPD type: chronic bronchitis Chronic bronchitis type: mucopurulent Qualified Code(s): J41.1 - Mucopurulent chronic bronchitis (6) Chronic kidney disease, stage 3 Current Visit: No Status: Chronic Assessment and plan: Stable continue fluids Hold Lasix (7) H/O aortic valve replacement with tissue graft Current Visit: No Status: Chronic (8) History of implantable cardiac defibrillator (ICD) Current Visit: No Status: Chronic (9) Hypothyroidism Current Visit: No Status: Chronic Assessment and plan: Continue Synthroid Qualifiers: Hypothyroidism type: unspecified Qualified Code(s): E03.9 - Hypothyroidism , unspecified (10) Ventricular tachycardia Current Visit: No Status: Resolved (11) Conjunctivitis Current Visit: Yes Status: Acute Assessment and plan: Start ophthalmic solution of ciprofloxacin Qualifiers: Conjunctivitis type: acute Acute conjunctivitis type: bacterial Laterality: bilateral Qualified Code(s): H10.33 - Unspecified acute conjunctivitis, bilateral - Subjective Interval history: feeling weak still, denies CP or SOB, no abdominal pain , no dysuria or fevers, no signs of bleeding - Constitutional Vitals: Temp Pulse Resp BP Pulse Ox 97.3 F L 54 16 109/68 96 06/03/17 06:27 06/03/17 06:27 06/03/17 06:27 06/03/17 06:27 06/03/17 06:27 General appearance: Present: A&O X 3, answers questions appropriately - Head Head exam: Present: atraumatic, normocephalic Additional comments: B/L conjuntivitis - Eye Eye exam: Present: PERRL, conjuntiva pink, sclera anicteric Pupils: Present: PERRL - Neck Neck exam general surgery: Present: supple, trachea midline. Absent: lymphadenopathy - Respiratory Respiratory exam: Present: CTAB. Absent: accessory muscle use, rales, rhonchi, wheezes - Cardiovascular Cardiovascular exam: Present: RRR, +S1, +S2. Absent: diastolic murmur, gallop, rubs, systolic murmur - GI/Abdominal GI/Abdominal exam: Present: normal bowel sounds, soft, no peritoneal signs. Absent: distended, tenderness - Extremities Exam Extremities exam: Present: warm, radial pulses palpable and symmetrical. Absent : calf tenderness, cyanotic, pedal edema - Neurological Exam Neurological exam: Present: CN II-XII intact, oriented X3, no focal deficits. Absent: pronater drift, facial droop, speech deficit - Skin Skin exam: Present: dry, intact Internal Medicine: Result - Labs CBC & Chem 7: 06/03/17 06:43 06/03/17 05:42 Labs: Short CBC 06/03/17 Range/Units 06:43 WBC 5.2 (4.3-11.1) K/mcL Hgb 7.1 L (11.5-15.4) g/dL Hct 24.1 L (35.3-44.9) % Plt Count 116 L (140-400) K/mcL Neutrophils # 3.7 (1.6-8.9) K/mcL BMP 06/03/17 05:42 Sodium 144 Potassium 3.6 Chloride 94 L Carbon Dioxide 43 H* BUN 22 Creatinine 1.11 Glucose 94 Calcium 8.4 L Cardiac Enzymes 06/03/17 Range/Units 05:42 Troponin I 0.03 (< 0.04) ng/mL Consult Discharge Plan - Plan Referrals: Francisco Melgar Jr [Primary Care Provider] -
[2017-06-03] MEDS: FLUoxetine 20 MG CAPSULE PO SCH ×2 (09:19→22:03)
[2017-06-03] MEDS: Folic Acid 1 MG TABLET PO SCH (09:19)
[2017-06-03] MEDS: Ciprofloxacin OPTH Soln 2.5 ML BOTTLE BOTH EYES SCH ×4 (09:20→22:07)
[2017-06-03] MEDS: 0.9 % Sodium Chloride 1,000 ML IVC SCH ×2 (09:20→22:03)
[2017-06-03] MEDS: *HR* Amiodarone 200 MG TABLET PO SCH ×2 (09:23→22:03)
[2017-06-03] MEDS: *HR* HYDROcodone/Acet 5/325 mg TABLET PO PRN (09:30)
[2017-06-03 09:40] LABS: INR 1.1; Prothrombin Time 11.4 Seconds (9.4-12.1)
[2017-06-03] MEDS ORDERED: 0.9 % Sodium Chloride 250 ML ONE (11:19)
--- NOTE | 2017-06-03 11:25 | Gastroenterology Consult Note ---
<Deborah Benson - Last Filed: 06/03/17 11:22> Date of Encounter: 06/03/17 Time of Encounter: 09:40 - Assessment and plan (1) Anemia Current Visit: Yes Status: Acute Assessment and plan: Pt has a history of iron deficiency anemia treated with iron infusions as well as GI bleeding from angioectasias in the duodenum and colon. She needs EGD. Risks and benefits discussed with pt and her son Carleen (via telephone [phone] ) and both are in agreement with the treatment plan. Will proceed with EGD today , may also need colonoscopy. Qualifiers: Anemia type: iron deficiency Iron deficiency anemia type: chronic blood loss Qualified Code(s): D50.0 - Iron deficiency anemia secondary to blood loss (chronic) (2) H/O aortic valve replacement with tissue graft Current Visit: No Status: Chronic - Time Spent With Patient Total time spent is greater than 50% in coordination of care (as documented) at patient's floor/unit and/or counseling patient: GI History of Present Illness - Data of Consult Patient: known to practice within the last 3 years Consult date: 06/03/17 Requesting Physician: Luh Knight MD - Consult Narrative Reason for consult: anemia History of present illness: Ms. Higginbotham is a 75 year old female with PMHx of CHF, COPD, DM, GI bleed, aortic valve replacement, Afib on Coumadin, ICD and pacemaker, chronic RUMA,Stage II breast cancer s/p chemo and radiation. Followed by heme onc, she reports last iron infusion less than one month ago. She presents to the ER with co weakness and lethargy. She reports feeling weak for the past 3 days. She denies abdominal pain, nausea, vomiting, or reflux. She denies diarrhea, constipation or bloody/tarry stools. She does report poor appetite recently. Hgb was 6.8 up to 7.1, platelets 116, iron 19 sat 9% and stool was positive for occult blood. Pt was on coumadin in the past but states it was stopped approx 1 year ago due to GI bleeding. Procedures: 06/07 single non-bleeding colonic angioectasia, internal hemorrhoids 08/13/2015 single nonbleeding colonic angiodysplasia treated with APC and clips. Diverticulosis in the sigmoid colon and internal hemorrhoids. Small bowel enteroscopy 08/13/2015: Normal esophagus and stomach. 3 nonbleeding angioectasias in the duodenum, one in the stomach treated with APC. EGD: 06/07 small hiatal hernia, single red spot with no bleeding in the second portion of the duodenum NSAIDs: None Anticoagulation: Coumadin stopped 1 year ago Past Med Surg Social Fam HX - Past Medical History Medical history: asthma, atrial fibrillation, cancer, cardiomyopathy, CHF, COPD , GERD, GI bleed, thyroid disease, valvular heart disease, other Psychiatric history: anxiety, depression - Past Surgical History Surgical History: appendectomy, breast surgery, cancer surgery, heart valve replacement, hysterectomy, pacemaker/AICD - Social History Smoking Status: Former smoker Smokeless Tobacco Status: No Alcohol use: none Drug use: none - Family History Mother Family Member Ethnicity: Non- Living Status: Hx Family Cardiac Disorders: No Hx Family Respiratory Disorders: No Hx Family Cancer: Yes Hx Family GI Disorders: No Hx Family Endocrine Disorder: No Hx Family Neuromuscular Disorders: No Hx Family Neurologic Disorders: No Hx Family HEENT Disorders: No Hx Family Autoimmune Disorders: No Father Living Status: Hx Family Cardiac Disorders: Yes Hx Family Respiratory Disorders: No Hx Family Cancer: Yes Hx Family GI Disorders: No Hx Family Endocrine Disorder: No Hx Family Neuromuscular Disorders: No Hx Family Neurologic Disorders: No Hx Family HEENT Disorders: No Hx Family Autoimmune Disorders: No Review of Systems: GI: as per [place] GENERAL: denies fever, or chills EYES: denies yellow discoloration ENT: denies pain with swallowing or difficulty swallowing CARDIO: denies chest pain, palpitations RESP: increased shortness of breath with exertion : denies change in color of urine NEURO: weakness and fatique HEME: Denies any bruising MS: chronic joint pain DERM: denies rash or itching PSYCH: Denies history of anxiety or depression - Constitutional Vitals: Temp Pulse Resp BP Pulse Ox 97 F L 55 17 109/63 96 06/03/17 10:21 06/03/17 10:21 06/03/17 10:21 06/03/17 10:21 06/03/17 10:21 Exam: CONSTITUTIONAL:~alert, no acute distress.~HEAD:~normocephalic.~EYES:~no jaundice , drainage from left eye, edema noted to eye lid.~NECK:~no obvious swelling.~ HEART:~regular rate and rhythm, loud murmur noted.~LUNGS:~bilateral fair air entry.~ABDOMEN:~non distended, soft, tender bilateral upper quadrants, no masses palpable, no organomegaly.~RECTAL EXAM:~Deferred.~EXTREMITIES:~no clubbing, cyanosis or edema.~SKIN:~no stigmata of chronic liver disease, scabbed areas noted to left lower leg.~NEUROLOGIC:~no obvious focal defect.~~~~ Results - Labs CBC & Chem 7: 06/03/17 06:43 06/03/17 05:42 Labs: Last Result Calcium 8.4 mg/dL (8.6-10.3) L 06/03/17 05:42 Iron 19 mcg/dL (50-170) L 06/03/17 05:42 % Saturation 6 % (15-50) L 06/03/17 05:42 Transferrin 229 mg/dL (203-362) 06/03/17 05:42 Troponin I 0.03 ng/mL (< 0.04) 06/03/17 09:19 Triglycerides 101 mg/dL (< 150) 06/03/17 05:42 Stool Occult Blood Positive (Negative) A 06/02/17 22:17 Entire Visit Hgb 7.1 g/dL (11.5-15.4) L 06/03/17 06:43 Hct 24.1 % (35.3-44.9) L 06/03/17 06:43 PT 11.4 Seconds (9.4-12.1) 06/03/17 09:19 Total Bilirubin 0.4 mg/dL (0.3-1.0) 06/02/17 20:40 AST 14 Units/L (13-39) 06/02/17 20:40 ALT 9 Units/L (7-52) 06/02/17 20:40 - ABG ABG results: PT/INR, D-dimer PT 11.4 Seconds (9.4-12.1) 06/03/17 09:19 Consult Discharge Plan - Plan Referrals: Francisco Melgar Jr [Primary Care Provider] - 06/13/17 2:10 pm (Please follow up as schedule..) <Charly Zelaya - Last Filed: 06/04/17 13:06> Date of Encounter: 06/03/17 - Time Spent With Patient Total time spent is greater than 50% in coordination of care (as documented) at patient's floor/unit and/or counseling patient: GI History of Present Illness - Data of Consult Requesting Physician: iRckey Webb - Consult Narrative History of present illness: Ms. Higginbotham is a 76 year old female - Constitutional Vitals: Temp Pulse Resp BP Pulse Ox 97.4 F L 63 16 136/69 96 06/04/17 11:56 06/04/17 11:56 06/04/17 11:56 06/04/17 11:56 06/04/17 11:56 Results - Labs CBC & Chem 7: 06/04/17 01:42 06/04/17 01:42 Labs: Last Result Calcium 8.4 mg/dL (8.6-10.3) L 06/04/17 01:42 Iron 19 mcg/dL (50-170) L 06/03/17 05:42 % Saturation 6 % (15-50) L 06/03/17 05:42 Transferrin 229 mg/dL (203-362) 06/03/17 05:42 Troponin I 0.03 ng/mL (< 0.04) 06/03/17 09:19 Triglycerides 101 mg/dL (< 150) 06/03/17 05:42 Stool Occult Blood Positive (Negative) A 06/02/17 22:17 Entire Visit Hgb 8.6 g/dL (11.5-15.4) L D 06/04/17 01:42 Hct 29.8 % (35.3-44.9) L 06/04/17 01:42 PT 11.4 Seconds (9.4-12.1) 06/03/17 09:19 Total Bilirubin 0.4 mg/dL (0.3-1.0) 06/02/17 20:40 AST 14 Units/L (13-39) 06/02/17 20:40 ALT 9 Units/L (7-52) 06/02/17 20:40 - ABG ABG results: ABG ABG pH 7.22 pH Units (7.32-7.45) L 06/04/17 01:23 ABG pCO2 104 mmHg (35-45) H* 06/04/17 01:23 ABG pO2 56 mmHg (85-104) L 06/04/17 01:23 ABG O2 Saturation 79 % (95-98) L 06/04/17 01:23 PT/INR, D-dimer PT 11.4 Seconds (9.4-12.1) 06/03/17 09:19 - Impressions Impressions Chest X-Ray 06/04/17 01:42 IMPRESSION: Features of congestive heart failure, including cardiomegaly, pulmonary vascular congestion, edema and effusions. Right basilar opacities favored to reflect a combination of fluid and atelectasis although superimposed airspace disease not excluded. D/ / Murali Saeed / Murali Saeed Interpreting Provider: Murali Saeed - Attending Attestation 76 year old female with multiple comorbidities comes in with severe anemia. Review of her previous records reveal that she has AVMs in the past that have been ablated. She has an AVR in the past. Today she is rather short of breath and has been placed on a non rebreather - her saturations are at 90%. Will just perform an upper endoscopy today given her respiratory status would hold off attempting colonoscopy with its attendant clean out process till she improves and stabilizes. Discussed procedure with her - risks and benefits. An informed consent was obtained for the procedure. I have personally performed a face to face evaluation on this patient. I have reviewed and agree with the care plan. History and Exam by me shows:
[2017-06-03] MEDS: Budesonide/Formoterol 160/4.5 MDI IH SCH ×2 (11:57→21:27)
--- NOTE | 2017-06-03 12:53 | Anesthesia Evaluation PreOp ---
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 RLS maintained on Requip) Other Medical History: Renal (stage 3 CKD), Diabetes Type II (maintained on Metformin), Thyroid (Hypothyroidism), GERD (maintained on Ranitidine), Other ( GIB/Angiodysplasia of colon w/ hemorrhage. Hx of Breast Ca) Anesthesia History: Past Anesthesia (Appy, Mastectomy, Cancer surgery, AV replacement, Hyster, Pacemaker/AICD) Alcohol Use: none Drug use: none Medications and Allergies Budesonide/Formoterol 160/4.5 [Symbicort] 2 puff IH BID 01/30/15 [History] FLUoxetine HCl [Prozac] 20 mg PO BID 01/30/15 [History] Allopurinol [Zyloprim 300 MG] 300 mg PO DAILY 01/12/16 [History] Ropinirole HCl [Requip] 4 mg PO HS 01/12/16 [History] Calcium Carbonate [Calcium] 1,500 mg PO BID 04/22/16 [History] Ipratropium/Albuterol Neb [Duoneb] 3 ml IH Q6HR PRN 04/22/16 [History] Oxygen 4 l NS CONT 04/22/16 [History] Folic Acid 1 mg PO DAILY 05/28/16 [History] Ranitidine HCl [Acid Milking Machine Technician] 150 mg PO BID 07/12/16 [History] Albuterol Sulfate [Ventolin Hfa] 1 - 2 puff IH Q4-6H PRN 10/14/16 [History] Umeclidinium [place] [Incruse Ellipta] 1 puff IH DAILY 10/14/16 [History] Amiodarone [Cordarone] 200 mg PO BID 12/29/16 [History] Ferrous Sulfate 325 mg PO TIDWM #90 tablet 04/10/17 [Rx] metFORMIN [Glucophage] 500 mg PO BIDWM 05/01/17 [History] Furosemide [Lasix] 40 mg PO QPM 06/03/17 [History] Furosemide [Lasix] 80 mg PO QAM 06/03/17 [History] Levothyroxine Sodium [Levoxyl] 75 mcg PO DAILY 06/03/17 [History] Potassium Chloride [K-Tab ER] 40 meq PO QPM 06/03/17 [History] Potassium Chloride [K-Tab ER] 60 meq PO QAM 06/03/17 [History] Sacubitril/Valsartan 24/26 mg [Entresto 24 mg-26 mg Tablet] 1 tab PO BID [History] 3 Allergy/AdvReac Type Severity Reaction Status Date / Time Penicillins Allergy Hives Verified 05/14/17 11:11 Sulfa (Sulfonamide Allergy Hives Verified 05/14/17 11:11 Antibiotics) albuterol AdvReac Drowsy Verified 06/03/17 10:26 gabapentin AdvReac Hallucinati Verified 06/03/17 10:26 ng - Meds/Allergy Pre-op Review Medications Reviewed: Yes Allergies Reviewed: Yes Beta Blockers on Current Med List: No Anesthesia Results - Labs 06/03/17 06:43 06/03/17 05:42 Laboratory Results WBC 5.2 K/mcL (4.3-11.1) 06/03/17 06:43 RBC 2.42 M/mcL (3.82-4.97) L 06/03/17 06:43 Hgb 7.1 g/dL (11.5-15.4) L 06/03/17 06:43 Hct 24.1 % (35.3-44.9) L 06/03/17 06:43 MCV 99.6 fL (83.0-100.0) 06/03/17 06:43 MCH 29.3 pg (28.0-33.3) 06/03/17 06:43 MCHC 29.5 g/dL (31.6-35.5) L 06/03/17 06:43 RDW 17.3 % (11.5-14.5) H 06/03/17 06:43 Plt Count 116 K/mcL (140-400) L 06/03/17 06:43 MPV 10.5 fL (9.4-12.4) 06/03/17 06:43 Immature Gran % 1.9 % (0-4) 06/03/17 06:43 Seg Neutrophils % 71.7 % 06/03/17 06:43 Lymphocytes % 10.9 % 06/03/17 06:43 Monocytes % 13.2 % 06/03/17 06:43 Eosinophils % 1.9 % 06/03/17 06:43 Basophils % 0.4 % 06/03/17 06:43 Neutrophils # 3.7 K/mcL (1.6-8.9) 06/03/17 06:43 Lymphocytes # 0.6 K/mcL (0.6-4.6) 06/03/17 06:43 Monocytes # 0.7 K/mcL (0.0-1.3) 06/03/17 06:43 Eosinophils # 0.1 K/mcL (0.0-0.6) 06/03/17 06:43 Basophils # 0.0 K/mcL (0.0-0.2) 06/03/17 06:43 Nucleated RBCs/100 WBC 0.6 /100 WBC (0) H 06/03/17 06:43 Immature Plt Fraction 4.4 % (1.1-6.1) 06/03/17 06:43 PT 11.4 Seconds (9.4-12.1) 06/03/17 09:19 INR 1.1 06/03/17 09:19 Sodium 144 mEq/L (136-145) 06/03/17 05:42 Potassium 3.6 mEq/L (3.5-5.1) 06/03/17 05:42 Chloride 94 mEq/L (98-107) L 06/03/17 05:42 Carbon Dioxide 43 mEq/L (23-29) H* 06/03/17 05:42 BUN 22 mg/dL (8-23) 06/03/17 05:42 Creatinine 1.11 mg/dL (0.60-1.20) 06/03/17 05:42 Est GFR ( Amer) 58 (> 60) L 06/03/17 05:42 Est GFR (Non-Af Amer) 48 (> 60) L 06/03/17 05:42 BUN/Creatinine Ratio 20 (6-26) 06/03/17 05:42 Glucose 94 mg/dL (70-105) 06/03/17 05:42 POC Glucose 94 (58-89) H 06/03/17 08:01 Calculated Osmolality 301 (280-300) H 06/03/17 05:42 Calcium 8.4 mg/dL (8.6-10.3) L 06/03/17 05:42 Magnesium 1.8 mg/dL (1.6-2.6) 06/03/17 05:42 Iron 19 mcg/dL (50-170) L 06/03/17 05:42 % Saturation 6 % (15-50) L 06/03/17 05:42 Transferrin 229 mg/dL (203-362) 06/03/17 05:42 Total Bilirubin 0.4 mg/dL (0.3-1.0) 06/02/17 20:40 AST 14 Units/L (13-39) 06/02/17 20:40 ALT 9 Units/L (7-52) 06/02/17 20:40 Alkaline Phosphatase 76 Units/L (34-104) 06/02/17 20:40 Troponin I 0.03 ng/mL (< 0.04) 06/03/17 09:19 Serum Total Protein 5.9 g/dL (6.4-8.9) L 06/02/17 20:40 Albumin 3.4 g/dL (3.5-5.7) L 06/02/17 20:40 Globulin 2.5 g/dL (2.4-3.5) 06/02/17 20:40 Albumin/Globulin Ratio 1.4 (1.1-2.2) 06/02/17 20:40 Triglycerides 101 mg/dL (< 150) 06/03/17 05:42 Cholesterol 146 mg/dL (< 200) 06/03/17 05:42 LDL Cholesterol, Calc 74 mg/dL (0-99) 06/03/17 05:42 VLDL Cholesterol, Calc 20 mg/dL (< 31) 06/03/17 05:42 HDL Cholesterol 52 mg/dL (40-59) 06/03/17 05:42 Cholesterol/HDL Ratio 2.8 (0-4.9) 06/03/17 05:42 Urine Color Yellow (Yellow) 06/02/17 20:25 Urine Clarity Clear (Clear) 06/02/17 20:25 Urine pH 6.5 pH Units (5.0-8.0) 06/02/17 20:25 Ur Specific [place] 1.016 (1.010-1.025) 06/02/17 20:25 Urine Protein Negative mg/dL (Neg-Trace) 06/02/17 20:25 Urine Glucose (UA) Normal mg/dL (Normal) 06/02/17 20:25 Urine Ketones Negative mg/dL (Negative) 06/02/17 20:25 Urine Blood Negative (Negative) 06/02/17 20:25 Urine Nitrite Negative (Negative) 06/02/17 20:25 Urine Bilirubin Negative (Negative) 06/02/17 20:25 Urine Urobilinogen Normal mg/dL (Normal) 06/02/17 20:25 Ur Leukocyte Esterase Negative (Negative) 06/02/17 20:25 Ur Culture Indicated? NO (NO) 06/02/17 20:25 Stool Occult Blood Positive (Negative) A 06/02/17 22:17 Specimen Rejected Clotted 06/03/17 05:42 Blood Type O POSITIVE 06/02/17 22:04 Antibody Screen NEGATIVE 06/02/17 22:04 Crossmatch See Detail 06/02/17 22:04 Impressions Chest X-Ray 06/02/17 20:33 IMPRESSION: Probable mild CHF D/ / Osei Fernandes MD / Osei Fernandes MD Interpreting Provider: Osei Fernandes MD Anesthesia Exam Vital Signs Temp Pulse Resp BP Pulse Ox 06/03/17 11:57 16 97 06/03/17 11:44 97.8 F 57 17 115/68 96 06/03/17 11:29 97 F L 55 17 109/63 96 06/03/17 10:21 97 F L 55 17 109/63 96 06/03/17 06:27 97.3 F L 54 16 109/68 96 06/03/17 04:23 97.8 F 57 17 106/54 90 06/03/17 03:31 97.7 F 54 16 111/69 96 06/03/17 03:23 97.7 F 54 16 111/69 96 06/03/17 00:54 115/50 06/03/17 00:50 98.6 F 58 16 93/48 06/03/17 00:35 98.8 F 58 18 100/56 99 06/03/17 00:34 98.8 F 58 18 100/56 99 06/03/17 00:23 97.7 F 58 17 115/48 99 06/02/17 23:24 18 124/57 06/02/17 22:30 60 120/63 100 06/02/17 21:30 62 133/58 100 06/02/17 20:30 70 130/60 100 06/02/17 20:28 100 06/02/17 19:49 98.2 F 64 19 111/66 100 Intake and Output 06/02/17 06/03/17 06/03/17 23:59 07:59 15:59 Intake Total 350 / 350 0 / 0 Output Total 200 / 200 Balance 150 / 150 0 / 0 Intake: Blood Product 350 / 350 0 / 0 Rbcs Leuko Poor As-1 Unit 350 / 350 [id number] Rbcs Leuko Poor As-3 2nd Unit 0 / 0 [id number] Output: Urine 200 / 200 Other: Weight 77.111 kg 77.1 kg Blood Glucose* 94 Patient Weight 06/03/17 23:59 Weight 77.1 kg Height: 5' Weight: 169# BMI = 33.2 NPO (# of Hours): MNoc - HEENT Pupil (Motor): Pupils equal, EOMI Teeth: Missing, Edentulous Oral Opening: Greater than 3 - PRESSURE TESTER OPERATOR LOC: Oriented PRESSURE TESTER OPERATOR Motor: Normal RUE, Normal LUE, Normal RLE, Normal LLE, Normal Face PRESSURE TESTER OPERATOR Sensory: Normal: RUE, LUE, RLE, LLE, Face - Cardiac Rhythm: Irregular Murmur: None - Pulmonary Breath Sounds: bilateral Clear Respiratory Effort: Symmetrical Anesthesia Assess/Plan ASA Score: 3 (Stage 3 CKD, Paroxysmal AFib, COPD/Asthma.) Modified Crowheart Scale for Level of Consciousness: Cooperative, oriented, and tranquil Anesthetic Plan: MAC Monitoring Plan: Standard Monitors Recovery Plan: Other Anes Supervising Prov Stmt: Pt seen/evaluated, R&B Discussed, questions answered and consent obtained. Salbador Shipman MD
[2017-06-03] MEDS ORDERED: *HR* Propofol 200 MG/20 ML VIAL IVP ONE (13:40)
--- NOTE | 2017-06-03 18:32 | Electrocardiograph Report ---
[place] [id number] Test Date: 2017-06-02 Pat Name: Janay Higginbotham Department: 102 Room: 2A42 Gender: F Monitoring And Evaluation Advisor: Reina : 1940 Requested By: Fadi Nathan Order Number: [id number] Reading MD: Alexia Perry Measurements Intervals [place] Rate: 60 P: 21 SD: 128 QRS: -52 QRSD: 179 T: 32 QT: 533 QTc: 534 Interpretive Statements SINUS RHYTHM RIGHT BUNDLE BRANCH BLOCK [120+ ms QRS DURATION, UPRIGHT V1, 40+ ms S IN I/aVL/V4/V5/V6] LEFT ANTERIOR FASCICULAR BLOCK [QRS AXIS <= -45, QR IN I, RS IN II] Electronically Signed On 06-03-2017 18:31:12 EST by Alexia Perry
[2017-06-03] MEDS ORDERED: NON-FORMULARY MEDICATION 1 EACH EACH (Ropinirole Hcl [Requip] 4 MG) PO SCH (21:00)
[2017-06-03] MEDS ORDERED: rOPINIRole 1 MG TABLET ONE (22:01)
[2017-06-03] MEDS: rOPINIRole 3 MG, rOPINIRole 1 MG PO SCH (22:04)
[2017-06-04] MEDS ORDERED: methylPREDNISolone 125 MG/2 ML VIAL ONE (01:22)
[2017-06-04] MEDS ORDERED: methylPREDNISolone 125 MG/2 ML VIAL IVP ONE (01:22)
[2017-06-04 01:28] LABS: ABG Base Excess 12 mEq/L (-2 to 3); ABG HCO3 43 mEq/L (21-27); ABG Oxygen Saturation 79 % (95-98); ABG PCO2 104 mmHg (35-45); ABG PH 7.22 pH Units (7.32-7.45); ABG PO2 56 mmHg (85-104); ABG TCO2 46 mEq/L (20-26)
[2017-06-04] MEDS: Ciprofloxacin OPTH Soln 2.5 ML BOTTLE BOTH EYES SCH ×6 (01:37→20:51)
[2017-06-04] MEDS ORDERED: Furosemide 40 MG/4 ML VIAL IVP ONE (01:42)
--- NOTE | 2017-06-04 01:47 | Event Note ---
Date of Encounter: 06/04/17 Time of Encounter: 01:43 called to rapid response patient in respiratory distress and hypoxic patient placed on nonrebreather ABG was obtained and patient was placed on BiPAP exam shows a bilateral rhonchi and some wheezing patient awake, alert and answered question blood pressure and pulse was normal ABG showed pH 7.2 PCO2 104 review of the chart chest x ray 06/02 suggestive of pulmonic congestion will repeat chest x-ray give 40 of Lasix and continue on BiPAP patient was also given 125 mg of Solu-Medrol IV's
[2017-06-04 02:02] LABS: Hematocrit 29.8 % (35.3-44.9); Hemoglobin 8.6 g/dL (11.5-15.4); Mean Corpuscular HGB Conc 28.9 g/dL (31.6-35.5); Mean Corpuscular Hemoglobin 28.7 pg (28.0-33.3); Mean Corpuscular Volume 99.3 fL (83.0-100.0); Mean Platelet Volume 10.4 fL (9.4-12.4); Platelet Count 122 K/mcL (140-400); Red Cell Distribution Width 17.5 % (11.5-14.5)
[2017-06-04 02:39] LABS: Hemoglobin A1C 4.1 %
[2017-06-04 02:43] LABS: Calcium 8.4 mg/dL (8.6-10.3); Potassium 3.5 mEq/L (3.5-5.1)
[2017-06-04] MEDS: Pantoprazole 40 MG VIAL IVP SCH ×2 (06:49→16:52)
--- NOTE | 2017-06-04 07:58 | Internal Med Progress Note ---
Date of Encounter: 06/04/17 Time of Encounter: 07:54 - Assessment and plan (1) Acute on chronic respiratory failure with hypoxia and hypercapnia Current Visit: No Status: Acute Assessment and plan: Acute on chronic hypoxic and hypercapnic respiratory failure secondary to acute pulmonary edema due to possible volume overload and acute systolic and diastolic CHF exacerbation Echocardiogram from March 2017 shows an ejection fraction of 45% and diastolic dysfunction Mechanical aortic valve, severe biatrial enlargement, moderate to severe mitral regurgitation Chest x-ray showed:Features of congestive heart failure, including cardiomegaly , pulmonary vascular congestion, edema and effusions. Right basilar opacities favored to reflect a combination of fluid and atelectasis although superimposed airspace disease not excluded. Strict I's and O's and daily weight, Lasix IV twice a day Repeat ABG, may restart BiPAP, ordered qualification for BiPAP tonight (2) Pulmonary edema Current Visit: No Status: Resolved Qualifiers: Chronicity: acute Qualified Code(s): J81.0 - Acute pulmonary edema (3) Acute blood loss anemia Current Visit: No Status: Acute Assessment and plan: Acute blood loss anemia likely secondary to upper GI bleed Upper endoscopy demonstrated grade a esophagitis, chronic gastritis and nonbleeding angiodysplastic lesion on the lesser curvature (cautherized) Hemoccult was positive, received 2 units of blood Patient did not want to be scoped by Dr. Rojo but was okay seeing Dr. Zelaya stop IV fluids due to pulmonary edema Protonix Monitor CBC Hemoglobin A1c was 4.1, has no diabetes (4) Iron deficiency anemia secondary to blood loss (chronic) Current Visit: No Status: Acute (5) Atrial fibrillation Current Visit: No Status: Chronic Assessment and plan: Not on anticoagulation due to prior history of GI bleed since last year Continue amiodarone Qualifiers: Atrial fibrillation type: chronic Qualified Code(s): I48.2 - Chronic atrial fibrillation (6) Breast cancer, left Current Visit: No Status: Chronic Qualifiers: Breast location: unspecified site of breast Estrogen receptor status: unspecified Patient sex: female Qualified Code(s): C50.912 - Malignant neoplasm of unspecified site of left female breast (7) COPD (chronic obstructive pulmonary disease) Current Visit: No Status: Chronic Assessment and plan: history of chronic respiratory failure Continue oxygen at 4 L continuously, may use bipap Overnight BIPAP qualification study Qualifiers: COPD type: chronic bronchitis Chronic bronchitis type: mucopurulent Qualified Code(s): J41.1 - Mucopurulent chronic bronchitis (8) Chronic kidney disease, stage 3 Current Visit: No Status: Chronic Assessment and plan: Lasix (9) H/O aortic valve replacement with tissue graft Current Visit: No Status: Chronic (10) History of implantable cardiac defibrillator (ICD) Current Visit: No Status: Chronic (11) Hypothyroidism Current Visit: No Status: Chronic Assessment and plan: Continue Synthroid Qualifiers: Hypothyroidism type: unspecified Qualified Code(s): E03.9 - Hypothyroidism , unspecified (12) Ventricular tachycardia Current Visit: No Status: Resolved (13) Conjunctivitis Current Visit: Yes Status: Acute Assessment and plan: ophthalmic solution of ciprofloxacin day 2 added oral doxycycline for possible blepharitis, early left preseptal celullitis Qualifiers: Conjunctivitis type: acute Acute conjunctivitis type: bacterial Laterality: bilateral Qualified Code(s): H10.33 - Unspecified acute conjunctivitis, bilateral (14) Blepharitis of eyelid of left eye Current Visit: Yes Status: Acute Assessment and plan: acute doxycycline Send culture Qualifiers: Blepharitis type: unspecified type Eyelid: upper Qualified Code(s): H01.004 - Unspecified blepharitis left upper eyelid - Subjective Interval history: COnfused, feeling weak , denies CP or SOB, no abdominal pain , no dysuria or fevers, no signs of bleeding, disoriented in time - Constitutional Vitals: Temp Pulse Resp BP Pulse Ox 98.1 F 66 16 106/50 99 06/04/17 03:11 06/04/17 03:11 06/04/17 03:11 06/04/17 03:11 06/04/17 03:11 General appearance: Present: A&O X 3, answers questions appropriately - Head Head exam: Present: atraumatic, normocephalic - Eye Eye exam: Present: periorbital swelling (left upper eyelid erythema and tenderness), PERRL, conjuntiva pink, sclera anicteric Pupils: Present: PERRL - Neck Neck exam general surgery: Present: supple, trachea midline. Absent: lymphadenopathy - Respiratory Respiratory exam: Present: CTAB, rales (bibasilar crackles). Absent: accessory muscle use, rhonchi, wheezes - Cardiovascular Cardiovascular exam: Present: RRR, +S1, +S2. Absent: diastolic murmur, gallop, rubs, systolic murmur - GI/Abdominal GI/Abdominal exam: Present: normal bowel sounds, soft, no peritoneal signs. Absent: distended, tenderness - Extremities Exam Extremities exam: Present: warm, radial pulses palpable and symmetrical. Absent : calf tenderness, cyanotic, pedal edema - Neurological Exam Neurological exam: Present: CN II-XII intact, no focal deficits. Absent: oriented X3, pronater drift, facial droop, speech deficit - Skin Skin exam: Present: dry, intact Internal Medicine: Result - Labs CBC & Chem 7: 06/04/17 01:42 06/04/17 01:42 Labs: Short CBC 06/04/17 Range/Units 01:42 WBC 6.1 (4.3-11.1) K/mcL Hgb 8.6 L D (11.5-15.4) g/dL Hct 29.8 L (35.3-44.9) % Plt Count 122 L (140-400) K/mcL BMP 06/04/17 01:42 Sodium 141 Potassium 3.5 Chloride 95 L Carbon Dioxide 37 H BUN 20 Creatinine 1.16 Glucose 196 H Calcium 8.4 L Cardiac Enzymes 06/03/17 Range/Units 09:19 Troponin I 0.03 (< 0.04) ng/mL - ABG Interpretation ABG results: ABG ABG pH 7.22 pH Units (7.32-7.45) L 06/04/17 01:23 ABG pCO2 104 mmHg (35-45) H* 06/04/17 01:23 ABG pO2 56 mmHg (85-104) L 06/04/17 01:23 ABG O2 Saturation 79 % (95-98) L 06/04/17 01:23 PT/INR, D-dimer PT 11.4 Seconds (9.4-12.1) 06/03/17 09:19 - Impressions Impressions Chest X-Ray 06/04/17 01:42 IMPRESSION: Features of congestive heart failure, including cardiomegaly, pulmonary vascular congestion, edema and effusions. Right basilar opacities favored to reflect a combination of fluid and atelectasis although superimposed airspace disease not excluded. D/ / Murali Saeed / Murali Saeed Interpreting Provider: Murali Saeed Consult Discharge Plan - Plan Referrals: Francisco Melgar Jr [Primary Care Provider] -
[2017-06-04] MEDS ORDERED: Furosemide 20 MG/2 ML VIAL IVP SCH (09:00)
[2017-06-04] MEDS: Furosemide 20 MG/2 ML VIAL IVP SCH ×2 (09:23→16:52)
[2017-06-04] MEDS: Folic Acid 1 MG TABLET PO SCH (09:23)
[2017-06-04] MEDS: Doxycycline 100 MG CAPSULE PO SCH ×3 (09:23→20:51)
[2017-06-04] MEDS: FLUoxetine 20 MG CAPSULE PO SCH ×2 (09:23→20:51)
[2017-06-04] MEDS: *HR* Amiodarone 200 MG TABLET PO SCH ×2 (09:26→20:51)
[2017-06-04] MEDS: Budesonide/Formoterol 160/4.5 MDI IH SCH ×2 (10:37→22:44)
[2017-06-04] MEDS: Ondansetron 4 MG/2 ML VIAL IVP PRN (11:47)
--- NOTE | 2017-06-04 12:06 | Gastroenterology Progress Note ---
Date of Encounter: 06/04/17 Time of Encounter: 09:50 - Assessment and plan (1) Anemia Current Visit: Yes Status: Acute Assessment and plan: S/P EGD yesterday with one nonbleeding angiodysplastic lesion, she may also need colonoscopy but she had an episode of hypercapnia last night requiring bipap, will defer until respiratory status improves, pt denies any active bleeding, monitor H&H, transfuse as needed. Qualifiers: Anemia type: iron deficiency Iron deficiency anemia type: chronic blood loss (2) H/O aortic valve replacement with tissue graft Current Visit: No Status: Chronic - Time Spent With Patient Total time spent is greater than 50% in coordination of care (as documented) at patient's floor/unit and/or counseling patient: - Subjective Interval history: Pt is awake and sitting up in bed. She is on nasal cannula and states she feels a little better today. She is status post EGD yesterday which showed one angiodysplastic lesion which was non bleeding. She had an episode of hypercapnia overnight and was placed on Bipap for a while but states she can not wear it as it makes her feel as if she is suffocating. - Constitutional Vitals: Temp Pulse Resp BP Pulse Ox 97.4 F L 63 16 136/69 96 06/04/17 11:56 06/04/17 11:56 06/04/17 11:56 06/04/17 11:56 06/04/17 11:56 Exam: CONSTITUTIONAL:~alert, no acute distress.~HEAD:~normocephalic.~EYES:~no jaundice.~NECK:~no obvious swelling.~HEART:~regular rate and rhythm, murmur.~ LUNGS:~bilateral poor air entry.~ABDOMEN:~non distended, soft, non tender, no masses palpable, no organomegaly.~RECTAL EXAM:~Deferred.~EXTREMITIES:~no clubbing, cyanosis or edema.~SKIN:~pallor noted, no stigmata of chronic liver disease.~NEUROLOGIC:~no obvious focal defect.~~~~ Results - Labs CBC & Chem 7: 06/04/17 01:42 06/04/17 01:42 Labs: Last Result Calcium 8.4 mg/dL (8.6-10.3) L 06/04/17 01:42 Iron 19 mcg/dL (50-170) L 06/03/17 05:42 % Saturation 6 % (15-50) L 06/03/17 05:42 Transferrin 229 mg/dL (203-362) 06/03/17 05:42 Troponin I 0.03 ng/mL (< 0.04) 06/03/17 09:19 Triglycerides 101 mg/dL (< 150) 06/03/17 05:42 Stool Occult Blood Positive (Negative) A 06/02/17 22:17 Entire Visit Hgb 8.6 g/dL (11.5-15.4) L D 06/04/17 01:42 Hct 29.8 % (35.3-44.9) L 06/04/17 01:42 PT 11.4 Seconds (9.4-12.1) 06/03/17 09:19 Total Bilirubin 0.4 mg/dL (0.3-1.0) 06/02/17 20:40 AST 14 Units/L (13-39) 06/02/17 20:40 ALT 9 Units/L (7-52) 06/02/17 20:40 - ABG ABG results: ABG ABG pH 7.22 pH Units (7.32-7.45) L 06/04/17 01:23 ABG pCO2 104 mmHg (35-45) H* 06/04/17 01:23 ABG pO2 56 mmHg (85-104) L 06/04/17 01:23 ABG O2 Saturation 79 % (95-98) L 06/04/17 01:23 PT/INR, D-dimer PT 11.4 Seconds (9.4-12.1) 06/03/17 09:19 - Impressions Impressions Chest X-Ray 06/04/17 01:42 IMPRESSION: Features of congestive heart failure, including cardiomegaly, pulmonary vascular congestion, edema and effusions. Right basilar opacities favored to reflect a combination of fluid and atelectasis although superimposed airspace disease not excluded. D/ / Murali Saeed / Murali Saeed Interpreting Provider: Murali Saeed Consult Discharge Plan - Plan Referrals: Francisco Melgar Jr [Primary Care Provider] - 06/13/17 2:10 pm (Please follow up as schedule..)
[2017-06-04] MEDS: rOPINIRole 3 MG, rOPINIRole 1 MG PO SCH (20:51)
[2017-06-05] MEDS: Ciprofloxacin OPTH Soln 2.5 ML BOTTLE BOTH EYES SCH ×6 (03:59→21:53)
[2017-06-05 05:08] LABS: Hemoglobin 8.2 g/dL (11.5-15.4); Mean Corpuscular HGB Conc 29.3 g/dL (31.6-35.5); Mean Corpuscular Hemoglobin 29.2 pg (28.0-33.3); Mean Corpuscular Volume 99.6 fL (83.0-100.0); Mean Platelet Volume 10.8 fL (9.4-12.4); Platelet Count 144 K/mcL (140-400); Red Blood Count 2.81 M/mcL (3.82-4.97); Red Cell Distribution Width 16.4 % (11.5-14.5)
[2017-06-05 05:37] LABS: Calcium 9.1 mg/dL (8.6-10.3); Potassium 4.2 mEq/L (3.5-5.1)
[2017-06-05] MEDS: Pantoprazole 40 MG VIAL IVP SCH (06:18)
[2017-06-05] MEDS: Budesonide/Formoterol 160/4.5 MDI IH SCH ×2 (07:52→20:34)
--- NOTE | 2017-06-05 08:21 | Discharge Summary ---
Date of Encounter: 06/05/17 Time of Encounter: 08:18 - Discharge Diagnosis (1) Acute on chronic respiratory failure with hypoxia and hypercapnia Priority: Primary Status: Acute Comments: Acute on chronic hypoxic and hypercapnic respiratory failure secondary to acute pulmonary edema due to possible volume overload and acute systolic and diastolic CHF exacerbation (2) Pulmonary edema Priority: Primary Status: Resolved Qualifiers: Chronicity: acute Qualified Code(s): J81.0 - Acute pulmonary edema (3) Acute blood loss anemia Priority: Primary Status: Acute Comments: Acute blood loss anemia likely secondary to upper GI bleed Upper endoscopy demonstrated grade a esophagitis, chronic gastritis and nonbleeding angiodysplastic lesion on the lesser curvature (cautherized) (4) Iron deficiency anemia secondary to blood loss (chronic) Priority: Primary Status: Acute (5) Atrial fibrillation Priority: Secondary Status: Chronic Qualifiers: Atrial fibrillation type: chronic Qualified Code(s): I48.2 - Chronic atrial fibrillation (6) Breast cancer, left Priority: Secondary Status: Chronic Qualifiers: Breast location: unspecified site of breast Estrogen receptor status: unspecified Patient sex: female Qualified Code(s): C50.912 - Malignant neoplasm of unspecified site of left female breast (7) COPD (chronic obstructive pulmonary disease) Priority: Secondary Status: Chronic Qualifiers: COPD type: chronic bronchitis Chronic bronchitis type: mucopurulent Qualified Code(s): J41.1 - Mucopurulent chronic bronchitis (8) Chronic kidney disease, stage 3 Priority: Secondary Status: Chronic (9) H/O aortic valve replacement with tissue graft Priority: Secondary Status: Chronic (10) History of implantable cardiac defibrillator (ICD) Priority: Secondary Status: Chronic (11) Hypothyroidism Priority: Secondary Status: Chronic Qualifiers: Hypothyroidism type: unspecified Qualified Code(s): E03.9 - Hypothyroidism , unspecified (12) Ventricular tachycardia Priority: Secondary Status: Resolved (13) Conjunctivitis Priority: Secondary Status: Acute Qualifiers: Conjunctivitis type: acute Acute conjunctivitis type: bacterial Laterality: bilateral Qualified Code(s): H10.33 - Unspecified acute conjunctivitis, bilateral (14) Blepharitis of eyelid of left eye Priority: Secondary Status: Acute Qualifiers: Blepharitis type: unspecified type Eyelid: upper Qualified Code(s): H01.004 - Unspecified blepharitis left upper eyelid - Discharge Medications Prescriptions: Ciprofloxacin OPTH Soln [C[place]oxan OPTH Soln] 2 drop BOTH EYES Q4HR #1 bottle HYDROcodone/Acet 5/325 mg [[place] 5-325 mg] 1 tab PO Q6HR PRN 5 Days #20 tablet PRN Reason: Moderate Pain Doxycycline 100 mg PO BID #14 capsule Omeprazole [PriLOSEC] 40 mg PO DAILY #30 cap Home Medications: Budesonide/Formoterol 160/4.5 [Symbicort] 2 puff IH BID 01/30/15 [History] FLUoxetine HCl [Prozac] 20 mg PO BID 01/30/15 [History] Allopurinol [Zyloprim 300 MG] 300 mg PO DAILY 01/12/16 [History] Ropinirole HCl [Requip] 4 mg PO HS 01/12/16 [History] Calcium Carbonate [Calcium] 1,500 mg PO BID 04/22/16 [History] Ipratropium/Albuterol Neb [Duoneb] 3 ml IH Q6HR PRN 04/22/16 [History] Oxygen 4 l NS CONT 04/22/16 [History] Folic Acid 1 mg PO DAILY 05/28/16 [History] Ranitidine HCl [Acid Pump Servicer] 150 mg PO BID 07/12/16 [History] Albuterol Sulfate [Ventolin Hfa] 1 - 2 puff IH Q4-6H PRN 10/14/16 [History] Umeclidinium [place] [Incruse Ellipta] 1 puff IH DAILY 10/14/16 [History] Amiodarone [Cordarone] 200 mg PO BID 12/29/16 [History] Ferrous Sulfate 325 mg PO TIDWM #90 tablet 04/10/17 [Rx] metFORMIN [Glucophage] 500 mg PO BIDWM 05/01/17 [History] Furosemide [Lasix] 40 mg PO QPM 06/03/17 [History] Furosemide [Lasix] 80 mg PO QAM 06/03/17 [History] Levothyroxine Sodium [Levoxyl] 75 mcg PO DAILY 06/03/17 [History] Potassium Chloride [K-Tab ER] 40 meq PO QPM 06/03/17 [History] Potassium Chloride [K-Tab ER] 60 meq PO QAM 06/03/17 [History] Sacubitril/Valsartan 24/26 mg [Entresto 24 mg-26 mg Tablet] 1 tab PO BID [History] Ciprofloxacin OPTH Soln [Ciloxan OPTH Soln] 2 drop BOTH EYES Q4HR #1 bottle [Rx] Doxycycline 100 mg PO BID #14 capsule 06/05/17 [Rx] HYDROcodone/Acet 5/325 mg [[place] 5-325 mg] 1 tab PO Q6HR PRN 5 Days #20 tablet 06/05/17 [Rx] Omeprazole [PriLOSEC] 40 mg PO DAILY #30 cap 06/05/17 [Rx] Allergies/Adverse Reactions: 3 Allergy/AdvReac Type Severity Reaction Status Date / Time Penicillins Allergy Hives Verified 05/14/17 11:11 Sulfa (Sulfonamide Allergy Hives Verified 05/14/17 11:11 Antibiotics) acetaminophen [From Percocet] AdvReac Hallucinati Verified 06/05/17 07:38 ng albuterol AdvReac Drowsy Verified 06/03/17 10:26 gabapentin AdvReac Hallucinati Verified 06/03/17 10:26 ng Oxycodone [From Percocet] AdvReac Hallucinati Verified 06/05/17 07:38 ng Date of admission: 06/03/17 03:07 Primary care physician: Francisco Melgar Jr Consults: 06/03/17 07:45 Consult to Gastroenterology [CONS] Routine Consulting Provider: [facility] Reason for Consult: acute blood loss anemia, GI bleed Call Completed: No 06/04/17 07:48 Consult to Respiratory Therapy [CONS] Routine Reason for Consult: BIPAP qualification overnight Call Completed: No - Patient Status Disposition: Home Health Service Condition: Fair Overall status at discharge: patient is progressing back to baseline - Discharge Instructions Follow Up With: Francisco Melgar Jr [Primary Care Provider] - 06/13/17 2:10 pm (Please follow up as schedule..) Additional Instructions: Continue Lasix. Follow-up with the GI service within the next 7 days. Follow- up with a primary care physician within 7 days. Follow-up with ophthalmology within the next 7 days as well. Continue doxycycline and ciprofloxacin ophthalmic solution as prescribed. - Diet and Activity Activity: increase activity as tolerated Diet: low fat, low cholesterol Hospital course: Ms. Higginbotham is a 76 year old female with known PMH of Asthma, paroxysmal atrial fibrillation not on anticoagulation, breast cancer, systolic CHF, COPD on 4 lit homeO2/chronic respiratory failure, GERD, GI bleed, hypothyroidism, s/p bio prosthetic AV replacement in 2012, and chronic Iron def anemia follows with Heme Onc, who had colonoscopy in 05/2016 that showed a colonic angioectasia treated with APC, internal hemorrhoids, pt presented to ER c/o generalized weakness, and lethargic . She denied any CP, does c/o sob and PARSONS. No abdominal pain, denied any melena / dark colored stools / bright red blood per rectum. However her Hb came back as 6.8 and stool hemoccult came back as positive, received 2 units of blood. Patient did not want to be scoped by Dr. Rojo but was okay seeing Dr. Zelaya Upper endoscopy demonstrated grade a esophagitis, chronic gastritis and nonbleeding angiodysplastic lesion on the lesser curvature (cautherized) Echocardiogram from March 2017 shows an ejection fraction of 45% and diastolic dysfunction Mechanical aortic valve, severe biatrial enlargement, moderate to severe mitral regurgitation . During her stay she developed severe respiratory distress, an ABG was performed showing pH of 7.22 and a PCO2 of 104 and a PO2 of 56 for which she was started on a BiPAP. Chest x-ray showed:Features of congestive heart failure, including cardiomegaly , pulmonary edema, vascular congestion, edema and effusions. Right basilar opacities favored to reflect a combination of fluid. Was treated with Lasix IV twice a day, continued on BiPAP, qualified for BiPAP use at home Develop conjunctivitis and blepharitis of the left upper eyelid, not draining pus anymore. Initially she was started on ophthalmic ciprofloxacin and also was started on oral doxycycline after possible preseptal cellulitis suspected. Possible chalazion is forming and will need to follow up with ophtalmology for possible I and D at a later time. Erythema has improved and swelling is not spreading, crusts have formed. The GI service has recommended to do a colonoscopy at some point once respiratory status has improved. The patient prefers to have this procedure as an outpatient, she was given the option to stay another day but prefers to have the colonoscopy at a later time. She is not actively bleeding. Her hemoglobin is stable at 8.2. Risks were explained. Also has refused to be evaluated by PT OT and would not accept to be transferred to rehabilitation facility. - Time Spent with Patient Total time spent providing and/or coordinating discharge services: Greater than 30 minutes (40 min) - Constitutional Vitals: Temp Pulse Resp BP Pulse Ox 97.5 F L 56 17 109/64 95 06/05/17 07:18 06/05/17 07:18 06/05/17 07:53 06/05/17 07:18 06/05/17 07:53 General appearance: Present: A&O X 3, answers questions appropriately Exam: - Head Head exam: Present: atraumatic, normocephalic - Eye Eye exam: Present: periorbital swelling (left upper eyelid erythema and tenderness have improved, crusts are seen), PERRL, conjuntiva pink, sclera anicteric Pupils: Present: PERRL - Neck Neck exam general surgery: Present: supple, trachea midline. Absent: lymphadenopathy - Respiratory Respiratory exam: Present: CTAB, rales (bibasilar crackles). Absent: accessory muscle use, rhonchi, wheezes - Cardiovascular Cardiovascular exam: Present: RRR, +S1, +S2. Absent: diastolic murmur, gallop, rubs, systolic murmur - GI/Abdominal GI/Abdominal exam: Present: normal bowel sounds, soft, no peritoneal signs. Absent: distended, tenderness - Extremities Exam Extremities exam: Present: warm, radial pulses palpable and symmetrical. Absent : calf tenderness, cyanotic, pedal edema - Neurological Exam Neurological exam: Present: CN II-XII intact, no focal deficits. Absent: oriented X3, pronater drift, facial droop, speech deficit - Skin Skin exam: Present: dry, intact
--- NOTE | 2017-06-05 08:49 | Physician Discharge Referral ---
Home Health/Hosp Referral Info Transfer to: Home Health Provider in Charge Post Discharge: PCP - Diagnosis (1) Acute on chronic respiratory failure with hypoxia and hypercapnia Status: Acute (2) Pulmonary edema Status: Resolved (3) Acute blood loss anemia Status: Acute (4) Iron deficiency anemia secondary to blood loss (chronic) Status: Acute (5) Atrial fibrillation Status: Chronic (6) Breast cancer, left Status: Chronic (7) COPD (chronic obstructive pulmonary disease) Status: Chronic (8) Chronic kidney disease, stage 3 Status: Chronic (9) H/O aortic valve replacement with tissue graft Status: Chronic (10) History of implantable cardiac defibrillator (ICD) Status: Chronic (11) Hypothyroidism Status: Chronic (12) Ventricular tachycardia Status: Resolved (13) Conjunctivitis Status: Acute (14) Blepharitis of eyelid of left eye Status: Acute - Respiratory Orders Smoking Cessation: Smoking cessation has been advised. For more information, call the [place] Tobacco Quit Line at 6-308-HVCZ-NOW. - Diet/Nutrition Diet/Nutrition Orders: No Added Salt (SALUD) - Services Needed Following services are medically necessary services: Home Health Aide, Physical Therapy, Occupational Therapy Home Care Orders: Continue Lasix. Follow-up with the GI service within the next 7 days. Follow- up with a primary care physician within 7 days. Follow-up with ophthalmology within the next 7 days as well. Continue doxycycline and ciprofloxacin ophthalmic solution as prescribed. - Transfer Medications Prescriptions: Ciprofloxacin OPTH Soln [Ciloxan OPTH Soln] 2 drop BOTH EYES Q4HR #1 bottle HYDROcodone/Acet 5/325 mg [[place] 5-325 mg] 1 tab PO Q6HR PRN 5 Days #20 tablet PRN Reason: Moderate Pain Doxycycline 100 mg PO BID #14 capsule Omeprazole [PriLOSEC] 40 mg PO DAILY #30 cap Home Medications: Budesonide/Formoterol 160/4.5 [Symbicort] 2 puff IH BID 01/30/15 [History] FLUoxetine HCl [Prozac] 20 mg PO BID 01/30/15 [History] Allopurinol [Zyloprim 300 MG] 300 mg PO DAILY 01/12/16 [History] Ropinirole HCl [Requip] 4 mg PO HS 01/12/16 [History] Calcium Carbonate [Calcium] 1,500 mg PO BID 04/22/16 [History] Ipratropium/Albuterol Neb [Duoneb] 3 ml IH Q6HR PRN 04/22/16 [History] Oxygen 4 l NS CONT 04/22/16 [History] Folic Acid 1 mg PO DAILY 05/28/16 [History] Ranitidine HCl [Acid [place]] 150 mg PO BID 07/12/16 [History] Albuterol Sulfate [Ventolin Hfa] 1 - 2 puff IH Q4-6H PRN 10/14/16 [History] Umeclidinium [place] [Incruse Ellipta] 1 puff IH DAILY 10/14/16 [History] Amiodarone [Cordarone] 200 mg PO BID 12/29/16 [History] Ferrous Sulfate 325 mg PO TIDWM #90 tablet 04/10/17 [Rx] metFORMIN [Glucophage] 500 mg PO BIDWM 05/01/17 [History] Furosemide [Lasix] 40 mg PO QPM 06/03/17 [History] Furosemide [Lasix] 80 mg PO QAM 06/03/17 [History] Levothyroxine Sodium [Levoxyl] 75 mcg PO DAILY 06/03/17 [History] Potassium Chloride [K-Tab ER] 40 meq PO QPM 06/03/17 [History] Potassium Chloride [K-Tab ER] 60 meq PO QAM 06/03/17 [History] Sacubitril/Valsartan 24/26 mg [Entresto 24 mg-26 mg Tablet] 1 tab PO BID [History] Ciprofloxacin OPTH Soln [[place]ox[place] OPTH Soln] 2 drop BOTH EYES Q4HR #1 bottle [Rx] Doxycycline 100 mg PO BID #14 capsule 06/05/17 [Rx] HYDROcodone/Acet 5/325 mg [[place] 5-325 mg] 1 tab PO Q6HR PRN 5 Days #20 tablet 06/05/17 [Rx] Omeprazole [PriLOSEC] 40 mg PO DAILY #30 cap 06/05/17 [Rx] Allergies/Adverse Reactions: 3 Allergy/AdvReac Type Severity Reaction Status Date / Time Penicillins Allergy Hives Verified 05/14/17 11:11 Sulfa (Sulfonamide Allergy Hives Verified 05/14/17 11:11 Antibiotics) acetaminophen [From Percocet] AdvReac Hallucinati Verified 06/05/17 07:38 ng albuterol AdvReac Drowsy Verified 06/03/17 10:26 gabapentin AdvReac Hallucinati Verified 06/03/17 10:26 ng Oxycodone [From Percocet] AdvReac Hallucinati Verified 06/05/17 07:38 ng Certification: Further, I certify that my clinical findings support that this patient is homebound (i.e. absences from home require considerable and taxing effort and are for medical reasons or church services or infrequently or short duration when for other reasons) because: Homebound Reason: Patient requires assistance of a person or device to safely leave home Attestation: My signature below is to certify that this patient is under my care and that I, or nurse practitioner, or a physician's judicial administrative assistant working with me, has a face-to -face encounter with this patient.
[2017-06-05] MEDS: Furosemide 20 MG/2 ML VIAL IVP SCH ×2 (09:32→15:55)
[2017-06-05] MEDS: Folic Acid 1 MG TABLET PO SCH (09:33)
[2017-06-05] MEDS: *HR* Amiodarone 200 MG TABLET PO SCH ×2 (09:33→21:52)
[2017-06-05] MEDS: FLUoxetine 20 MG CAPSULE PO SCH ×2 (09:33→21:52)
[2017-06-05] MEDS: Doxycycline 100 MG CAPSULE PO SCH ×2 (09:33→21:52)
--- NOTE | 2017-06-05 14:48 | Physician Discharge Referral ---
ExtendedCare Referral Info Provider in Charge after Transfer: PCP Institutional Level of Care: Skilled - Diagnosis (1) Acute on chronic respiratory failure with hypoxia and hypercapnia Status: Acute (2) Pulmonary edema Status: Resolved (3) Acute blood loss anemia Status: Acute (4) Iron deficiency anemia secondary to blood loss (chronic) Status: Acute (5) Atrial fibrillation Status: Chronic (6) Breast cancer, left Status: Chronic (7) COPD (chronic obstructive pulmonary disease) Status: Chronic (8) Chronic kidney disease, stage 3 Status: Chronic (9) H/O aortic valve replacement with tissue graft Status: Chronic (10) History of implantable cardiac defibrillator (ICD) Status: Chronic (11) Hypothyroidism Status: Chronic (12) Ventricular tachycardia Status: Resolved (13) Conjunctivitis Status: Acute (14) Blepharitis of eyelid of left eye Status: Acute - Transfer Medications Prescriptions: Ciprofloxacin OPTH Soln [[place] OPTH Soln] 2 drop BOTH EYES Q4HR #1 bottle HYDROcodone/Acet 5/325 mg [[place] 5-325 mg] 1 tab PO Q6HR PRN 5 Days #20 tablet PRN Reason: Moderate Pain Doxycycline 100 mg PO BID #14 capsule Omeprazole [PriLOSEC] 40 mg PO DAILY #30 cap Home Medications: Budesonide/Formoterol 160/4.5 [Symbicort] 2 puff IH BID 01/30/15 [History] FLUoxetine HCl [Prozac] 20 mg PO BID 01/30/15 [History] Allopurinol [Zyloprim 300 MG] 300 mg PO DAILY 01/12/16 [History] Ropinirole HCl [Requip] 4 mg PO HS 01/12/16 [History] Calcium Carbonate [Calcium] 1,500 mg PO BID 04/22/16 [History] Ipratropium/Albuterol Neb [Duoneb] 3 ml IH Q6HR PRN 04/22/16 [History] Oxygen 4 l NS CONT 04/22/16 [History] Folic Acid 1 mg PO DAILY 05/28/16 [History] Ranitidine HCl [Acid Explosive Expert] 150 mg PO BID 07/12/16 [History] Albuterol Sulfate [Ventolin Hfa] 1 - 2 puff IH Q4-6H PRN 10/14/16 [History] Umeclidinium [place] [Incruse Ellipta] 1 puff IH DAILY 10/14/16 [History] Amiodarone [Cordarone] 200 mg PO BID 12/29/16 [History] Ferrous Sulfate 325 mg PO TIDWM #90 tablet 04/10/17 [Rx] metFORMIN [Glucophage] 500 mg PO BIDWM 05/01/17 [History] Furosemide [Lasix] 40 mg PO QPM 06/03/17 [History] Furosemide [Lasix] 80 mg PO QAM 06/03/17 [History] Levothyroxine Sodium [Levoxyl] 75 mcg PO DAILY 06/03/17 [History] Potassium Chloride [K-Tab ER] 40 meq PO QPM 06/03/17 [History] Potassium Chloride [K-Tab ER] 60 meq PO QAM 06/03/17 [History] Sacubitril/Valsartan 24/26 mg [Entresto 24 mg-26 mg Tablet] 1 tab PO BID [History] Ciprofloxacin OPTH Soln [Ciloxan OPTH Soln] 2 drop BOTH EYES Q4HR #1 bottle [Rx] Doxycycline 100 mg PO BID #14 capsule 06/05/17 [Rx] HYDROcodone/Acet 5/325 mg [[place] 5-325 mg] 1 tab PO Q6HR PRN 5 Days #20 tablet 06/05/17 [Rx] Omeprazole [PriLOSEC] 40 mg PO DAILY #30 cap 06/05/17 [Rx] Allergies/Adverse Reactions: 3 Allergy/AdvReac Type Severity Reaction Status Date / Time Penicillins Allergy Hives Verified 05/14/17 11:11 Sulfa (Sulfonamide Allergy Hives Verified 05/14/17 11:11 Antibiotics) acetaminophen [From Percocet] AdvReac Hallucinati Verified 06/05/17 07:38 ng albuterol AdvReac Drowsy Verified 06/03/17 10:26 gabapentin AdvReac Hallucinati Verified 06/03/17 10:26 ng Oxycodone [From Percocet] AdvReac Hallucinati Verified 06/05/17 07:38 ng - Respiratory Orders Smoking Cessation: Smoking cessation has been advised. For more information, call the [place] Tobacco Quit Line at 9-064-TPPI-NOW. - Advance Directives Code Status: Full Code - Rehabiliation Orders Other: Continue Lasix. Follow-up with the GI service within the next 7 days. Follow- up with a primary care physician within 7 days. Follow-up with ophthalmology within the next 7 days as well. Continue doxycycline and ciprofloxacin ophthalmic solution as prescribed. Correction: Discontinue metformin as a patient hemoglobin A1c was 4.1 CERTIFICATION: I certify that the transfer of the above named patient to an Extended Care Facility is necessary for the continuing treatment of the diagnosis listed. The above information is true and accurate reflection of patient's current condition. Confidential - Redisclosure prohibited without a patient's written consent.
[2017-06-05] MEDS ORDERED: rOPINIRole 1 MG TABLET ONE (21:32)
[2017-06-05] MEDS: rOPINIRole 3 MG, rOPINIRole 1 MG PO SCH (21:52)
[2017-06-06] MEDS: Ciprofloxacin OPTH Soln 2.5 ML BOTTLE BOTH EYES SCH ×6 (00:01→20:49)
--- NOTE | 2017-06-06 08:27 | Internal Med Progress Note ---
Date of Encounter: 06/06/17 Time of Encounter: 08:24 - Assessment and plan (1) Acute on chronic respiratory failure with hypoxia and hypercapnia Current Visit: No Status: Acute Assessment and plan: Acute on chronic hypoxic and hypercapnic respiratory failure secondary to acute pulmonary edema due to possible volume overload and acute systolic and diastolic CHF exacerbation Echocardiogram from March 2017 shows an ejection fraction of 45% and diastolic dysfunction Mechanical aortic valve, severe biatrial enlargement, moderate to severe mitral regurgitation Chest x-ray showed:Features of congestive heart failure, including cardiomegaly , pulmonary vascular congestion, edema and effusions. Right basilar opacities favored to reflect a combination of fluid and atelectasis although superimposed airspace disease not excluded. Strict I's and O's and daily weight, continue Lasix Qualified for BiPAP Please see discharge summary for details (2) Pulmonary edema Current Visit: No Status: Resolved Qualifiers: Chronicity: acute Qualified Code(s): J81.0 - Acute pulmonary edema (3) Acute blood loss anemia Current Visit: No Status: Acute Assessment and plan: Acute blood loss anemia likely secondary to upper GI bleed Upper endoscopy demonstrated grade a esophagitis, chronic gastritis and nonbleeding angiodysplastic lesion on the lesser curvature (cautherized) Hemoccult was positive, received 2 units of blood Patient did not want to be scoped by Dr. Rojo but was okay seeing Dr. Zelaya stop IV fluids due to pulmonary edema omeprazole Hemoglobin A1c was 4.1, has no diabetes (4) Iron deficiency anemia secondary to blood loss (chronic) Current Visit: No Status: Acute (5) Atrial fibrillation Current Visit: No Status: Chronic Assessment and plan: Not on anticoagulation due to prior history of GI bleed since last year Continue amiodarone Qualifiers: Atrial fibrillation type: chronic Qualified Code(s): I48.2 - Chronic atrial fibrillation (6) Breast cancer, left Current Visit: No Status: Chronic Qualifiers: Breast location: unspecified site of breast Estrogen receptor status: unspecified Patient sex: female Qualified Code(s): C50.912 - Malignant neoplasm of unspecified site of left female breast (7) COPD (chronic obstructive pulmonary disease) Current Visit: No Status: Chronic Assessment and plan: history of chronic respiratory failure Continue oxygen at 4 L continuously, may use bipap Overnight BIPAP qualification study Qualifiers: COPD type: chronic bronchitis Chronic bronchitis type: mucopurulent Qualified Code(s): J41.1 - Mucopurulent chronic bronchitis (8) Chronic kidney disease, stage 3 Current Visit: No Status: Chronic Assessment and plan: Lasix (9) H/O aortic valve replacement with tissue graft Current Visit: No Status: Chronic (10) History of implantable cardiac defibrillator (ICD) Current Visit: No Status: Chronic (11) Hypothyroidism Current Visit: No Status: Chronic Assessment and plan: Continue Synthroid Qualifiers: Hypothyroidism type: unspecified Qualified Code(s): E03.9 - Hypothyroidism , unspecified (12) Ventricular tachycardia Current Visit: No Status: Resolved (13) Conjunctivitis Current Visit: Yes Status: Acute Assessment and plan: ophthalmic solution of ciprofloxacin day 4 added oral doxycycline for possible blepharitis, early left preseptal celullitis Qualifiers: Conjunctivitis type: acute Acute conjunctivitis type: bacterial Laterality: bilateral Qualified Code(s): H10.33 - Unspecified acute conjunctivitis, bilateral (14) Blepharitis of eyelid of left eye Current Visit: Yes Status: Acute Assessment and plan: acute Continue doxycycline Needs to follow up with an tugboat captain for possible draining Qualifiers: Blepharitis type: unspecified type Eyelid: upper Qualified Code(s): H01.004 - Unspecified blepharitis left upper eyelid - Subjective Interval history: Very sleepy but able to follow commands , denies CP or SOB, no abdominal pain , no dysuria or fevers, no signs of bleeding, disoriented in time - Constitutional Vitals: Temp Pulse Resp BP Pulse Ox 98.3 F 58 18 119/72 98 06/06/17 07:20 06/06/17 07:20 06/06/17 07:20 06/06/17 07:20 06/06/17 07:20 General appearance: Present: A&O X 3, answers questions appropriately Exam: General appearance: Present: A&O X 3, answers questions appropriately Exam: - Head Head exam: Present: atraumatic, normocephalic - Eye Eye exam: Present: periorbital swelling (left upper eyelid erythema and tenderness have improved, crusts are seen), PERRL, conjuntiva pink, sclera anicteric Pupils: Present: PERRL - Neck Neck exam general surgery: Present: supple, trachea midline. Absent: lymphadenopathy - Respiratory Respiratory exam: Present: CTAB, rales (bibasilar crackles). Absent: accessory muscle use, rhonchi, wheezes - Cardiovascular Cardiovascular exam: Present: RRR, +S1, +S2. Absent: diastolic murmur, gallop, rubs, systolic murmur - GI/Abdominal GI/Abdominal exam: Present: normal bowel sounds, soft, no peritoneal signs. Absent: distended, tenderness - Extremities Exam Extremities exam: Present: warm, radial pulses palpable and symmetrical. Absent : calf tenderness, cyanotic, pedal edema - Neurological Exam Neurological exam: Present: CN II-XII intact, no focal deficits. Absent: oriented X3, pronater drift, facial droop, speech deficit - Skin Skin exam: Present: dry, intact Internal Medicine: Result - Labs CBC & Chem 7: 06/05/17 04:53 06/05/17 04:53 - ABG Interpretation ABG results: ABG ABG pH 7.22 pH Units (7.32-7.45) L 06/04/17 01:23 ABG pCO2 104 mmHg (35-45) H* 06/04/17 01:23 ABG pO2 56 mmHg (85-104) L 06/04/17 01:23 ABG O2 Saturation 79 % (95-98) L 06/04/17 01:23 PT/INR, D-dimer PT 11.4 Seconds (9.4-12.1) 06/03/17 09:19 Consult Discharge Plan - Plan Instructions: Doxycycline (By mouth), Hydrocodone/Acetaminophen (By mouth), Omeprazole (By mouth), Ciprofloxacin (Into the eye) Additional Instructions: Continue Lasix. Follow-up with the GI service within the next 7 days. Follow- up with a primary care physician within 7 days. Follow-up with ophthalmology within the next 7 days as well. Continue doxycycline and ciprofloxacin ophthalmic solution as prescribed. Referrals: [facility] [Provider Group] (Office will call you with and appointment date and time. If you do not hear from them please call the office. Thank you!) Fracnisco Melgar Jr [Primary Care Provider] - 06/13/17 2:10 pm (Please follow up as schedule..) Prescriptions: Ciprofloxacin OPTH Soln [Ciloxan OPTH Soln] 2 drop BOTH EYES Q4HR #1 bottle HYDROcodone/Acet 5/325 mg [[place] 5-325 mg] 1 tab PO Q6HR PRN 5 Days #20 tablet PRN Reason: Moderate Pain Doxycycline 100 mg PO BID #14 capsule Omeprazole [PriLOSEC] 40 mg PO DAILY #30 cap
[2017-06-06] MEDS: *HR* Amiodarone 200 MG TABLET PO SCH ×2 (09:51→20:48)
[2017-06-06] MEDS: Doxycycline 100 MG CAPSULE PO SCH ×2 (09:51→20:48)
[2017-06-06] MEDS: Furosemide 20 MG/2 ML VIAL IVP SCH (09:51)
[2017-06-06] MEDS: FLUoxetine 20 MG CAPSULE PO SCH ×2 (09:51→20:48)
[2017-06-06] MEDS: Folic Acid 1 MG TABLET PO SCH (09:51)
[2017-06-06] MEDS: Budesonide/Formoterol 160/4.5 MDI IH SCH ×2 (10:50→22:21)
[2017-06-06] MEDS: Furosemide 40 MG TABLET PO SCH (16:06)
[2017-06-06] MEDS: Ondansetron 4 MG/2 ML VIAL IVP PRN (16:11)
[2017-06-06] MEDS ORDERED: rOPINIRole 1 MG TABLET ONE (20:46)
[2017-06-06] MEDS: rOPINIRole 3 MG, rOPINIRole 1 MG PO SCH (20:49)
--- NOTE | 2017-06-06 23:26 | Event Note ---
Addendum entered and electronically signed by Ajay Estevez CNP 00:20: Neuro checks also ordered Q3HR to assess for changes in mentation. Original Note: Date of Encounter: 06/06/17 Time of Encounter: 22:40 While assessing/admitting a patient on unit 2A, I was notified that a patient had fallen in room 2A42 by the name of Janay Higginbotham. Fall was unwitnessed by myself and nursing staff. 76 yo female who has hx of confusion was found on the floor after nursing staff heard a loud crash. Nurse states she found the patient on the floor. Nurse reports bed alarm was not activated at the time of the fall. Patient was helped back into bed and assessed by nurse. Patient stated she landed on her right hand and buttocks but denied hitting her head. I entered the room to examine the patient who was in bed. When asked what happened , the patient stated she was taking a bowl into her kitchen to rinse it out and fell. Patient is only oriented to her own person which staff confirms is her baseline. On examination, patient reports pain in right hand. Pts. head palpated w/o pain or evidence of edema. Pts. neck showed no sign of pain or edema on careful examination. Pt. denied pain to her back or buttocks. Falls/ safety precautions ordered, up with assist only, and bed rest w/bedside commode w/assist only ordered. Cervical collar ordered and placed. CT of the head, lumbar spine, and cervical spine ordered stat. 2-View XR of the right hand ordered. Sitter ordered. Patient's vital signs following the fall were: Temperature 97.5, heart rate of 68, respirations of 16, blood pressure 114/63, and SPO2 93% on 4L. Will await imaging results to determine if orthopedic consults are required.
[2017-06-07] MEDS: Ciprofloxacin OPTH Soln 2.5 ML BOTTLE BOTH EYES SCH ×6 (01:33→22:09)
[2017-06-07 08:24] LABS: ABG Base Excess 18 mEq/L (-2 to 3); ABG HCO3 49 mEq/L (21-27); ABG Oxygen Saturation 97 % (95-98); ABG PCO2 108 mmHg (35-45); ABG PH 7.26 pH Units (7.32-7.45); ABG PO2 118 mmHg (85-104); ABG TCO2 52 mEq/L (20-26)
[2017-06-07] MEDS ORDERED: methylPREDNISolone 125 MG/2 ML VIAL IVP ONE (08:29)
--- NOTE | 2017-06-07 08:34 | Internal Med Progress Note ---
Date of Encounter: 06/07/17 Time of Encounter: 08:31 - Assessment and plan (1) Acute on chronic respiratory failure with hypoxia and hypercapnia Current Visit: No Status: Acute Assessment and plan: Acute on chronic hypoxic and hypercapnic respiratory failure secondary to acute pulmonary edema due to possible volume overload and acute systolic and diastolic CHF exacerbation, also possible acute COPD exacerbation, likely viral bronchitis Echocardiogram from March 2017 shows an ejection fraction of 45% and diastolic dysfunction Mechanical aortic valve, severe biatrial enlargement, moderate to severe mitral regurgitation Chest x-ray showed:Features of congestive heart failure, including cardiomegaly , pulmonary vascular congestion, edema and effusions. Right basilar opacities favored to reflect a combination of fluid and atelectasis although superimposed airspace disease not excluded. Strict I's and O's and daily weight, continue Lasix solumedrol, duonebs Qualified for BiPAP The patient will be able to be discharged today, her pH is 7.26 DC oh to 108 PO2 118, continue BiPAP (2) Pulmonary edema Current Visit: No Status: Resolved Qualifiers: Chronicity: acute Qualified Code(s): J81.0 - Acute pulmonary edema (3) Acute blood loss anemia Current Visit: No Status: Acute Assessment and plan: Acute blood loss anemia likely secondary to upper GI bleed Upper endoscopy demonstrated grade a esophagitis, chronic gastritis and nonbleeding angiodysplastic lesion on the lesser curvature (cautherized) Hemoccult was positive, received 2 units of blood Patient did not want to be scoped by Dr. Rojo but was okay seeing Dr. Zelaya stopped IV fluids due to pulmonary edema omeprazole Hemoglobin A1c was 4.1, has no diabetes (4) Iron deficiency anemia secondary to blood loss (chronic) Current Visit: No Status: Acute (5) Atrial fibrillation Current Visit: No Status: Chronic Assessment and plan: Not on anticoagulation due to prior history of GI bleed since last year Continue amiodarone Qualifiers: Atrial fibrillation type: chronic Qualified Code(s): I48.2 - Chronic atrial fibrillation (6) Breast cancer, left Current Visit: No Status: Chronic Qualifiers: Breast location: unspecified site of breast Estrogen receptor status: unspecified Patient sex: female Qualified Code(s): C50.912 - Malignant neoplasm of unspecified site of left female breast (7) COPD (chronic obstructive pulmonary disease) Current Visit: No Status: Chronic Assessment and plan: history of chronic respiratory failure Continue oxygen at 4 L continuously, bipap y Qualifiers: COPD type: chronic bronchitis Chronic bronchitis type: mucopurulent Qualified Code(s): J41.1 - Mucopurulent chronic bronchitis (8) Chronic kidney disease, stage 3 Current Visit: No Status: Chronic Assessment and plan: Lasix (9) H/O aortic valve replacement with tissue graft Current Visit: No Status: Chronic (10) History of implantable cardiac defibrillator (ICD) Current Visit: No Status: Chronic (11) Hypothyroidism Current Visit: No Status: Chronic Assessment and plan: Continue Synthroid Qualifiers: Hypothyroidism type: unspecified Qualified Code(s): E03.9 - Hypothyroidism , unspecified (12) Ventricular tachycardia Current Visit: No Status: Resolved (13) Conjunctivitis Current Visit: Yes Status: Acute Assessment and plan: ophthalmic solution of ciprofloxacin day 5 added oral doxycycline for possible blepharitis, early left preseptal celullitis Qualifiers: Conjunctivitis type: acute Acute conjunctivitis type: bacterial Laterality: bilateral Qualified Code(s): H10.33 - Unspecified acute conjunctivitis, bilateral (14) Blepharitis of eyelid of left eye Current Visit: Yes Status: Acute Assessment and plan: acute Continue doxycycline Ophthalmology consult Qualifiers: Blepharitis type: unspecified type Eyelid: upper Qualified Code(s): H01.004 - Unspecified blepharitis left upper eyelid - Subjective Interval history: Very sleepy, confused , denies CP or SOB, no abdominal pain , no dysuria or fevers, no signs of bleeding, disoriented in time - Constitutional Vitals: Temp Pulse Resp BP Pulse Ox 97.8 F 64 15 123/65 92 06/07/17 08:07 06/07/17 08:07 06/07/17 08:07 06/07/17 08:07 06/07/17 08:07 General appearance: Present: A&O X 2, answers questions appropriately Exam: - Head Head exam: Present: atraumatic, normocephalic - Eye Eye exam: Present: periorbital swelling (left upper eyelid erythema and tenderness have improved, crusts are seen), PERRL, conjuntiva pink, sclera anicteric Pupils: Present: PERRL - Neck Neck exam general surgery: Present: supple, trachea midline. Absent: lymphadenopathy - Respiratory Respiratory exam: Present: CTAB, rales (bibasilar crackles). Absent: accessory muscle use, rhonchi, wheezes - Cardiovascular Cardiovascular exam: Present: RRR, +S1, +S2. Absent: diastolic murmur, gallop, rubs, systolic murmur - GI/Abdominal GI/Abdominal exam: Present: normal bowel sounds, soft, no peritoneal signs. Absent: distended, tenderness - Extremities Exam Extremities exam: Present: warm, radial pulses palpable and symmetrical. Absent : calf tenderness, cyanotic, pedal edema - Neurological Exam Neurological exam: Present: CN II-XII intact, no focal deficits. 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 There is no hemorrhage D/ / Lloyd Gorman / Lloyd Gorman Interpreting Provider: Lloyd Gorman Cervical Spine CT 06/06/17 23:16 IMPRESSION: No acute abnormality of the cervical spine. Right pleural effusion. D/ / Alexander Farfan MD / Alexander Farfan MD Interpreting Provider: Alexander Farfan MD Hand X-Ray 06/06/17 23:16 IMPRESSION: No evidence of an acute injury. D/ / Lloyd Mcintosh MD / Lloyd Mcintosh MD Interpreting Provider: Lloyd Mcintosh MD Lumbar Spine CT 06/06/17 23:16 IMPRESSION: CT lumbar spine is not significantly changed compared to 05/22/2014. Stable L3 biconcave endplate compression deformity. No evidence of acute osseous fracture. Moderate lumbar spondylosis. Consider correlation with MRI lumbar spine for better characterization of spinal canal and neural foraminal stenosis. D/ / 06/07/2017 07:09:04 Jarek Dorman / isha Interpreting Provider: Jarek Dorman Consult Discharge Plan - Plan Instructions: Doxycycline (By mouth), Hydrocodone/Acetaminophen (By mouth), Omeprazole (By mouth), Ciprofloxacin (Into the eye) Additional Instructions: Continue Lasix. Follow-up with the GI service within the next 7 days. Follow- up with a primary care physician within 7 days. Follow-up with ophthalmology within the next 7 days as well. Continue doxycycline and ciprofloxacin ophthalmic solution as prescribed. Referrals: [facility] [Provider Group] (Office will call you with and appointment date and time. If you do not hear from them please call the office. Thank you!) Francisco Melgar Jr [Primary Care Provider] - 06/13/17 2:10 pm (Please follow up as schedule..) Prescriptions: Ciprofloxacin OPTH Soln [Ciloxan OPTH Soln] 2 drop BOTH EYES Q4HR #1 bottle HYDROcodone/Acet 5/325 mg [[place] 5-325 mg] 1 tab PO Q6HR PRN 5 Days #20 tablet PRN Reason: Moderate Pain Doxycycline 100 mg PO BID #14 capsule Omeprazole [PriLOSEC] 40 mg PO DAILY #30 cap
[2017-06-07] MEDS: Folic Acid 1 MG TABLET PO SCH (08:36)
[2017-06-07] MEDS: FLUoxetine 20 MG CAPSULE PO SCH ×2 (08:37→22:07)
[2017-06-07] MEDS: Furosemide 40 MG TABLET PO SCH ×2 (08:37→18:02)
[2017-06-07] MEDS: *HR* Amiodarone 200 MG TABLET PO SCH ×2 (08:37→22:07)
[2017-06-07] MEDS: Doxycycline 100 MG CAPSULE PO SCH ×2 (08:37→22:08)
[2017-06-07] MEDS ORDERED: Lidocaine/EPI 1:200k 2% PF 10 ML VIAL INFILT ONE (09:37)
[2017-06-07] MEDS: Ipratropium/Albuterol Neb 3 ML IH SCH ×3 (10:30→22:19)
[2017-06-07] MEDS: Budesonide/Formoterol 160/4.5 MDI IH SCH ×2 (10:30→22:20)
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
[2017-06-07] MEDS: MethylPREDNISolone 40 MG/ML VIAL IVP SCH (18:02)
[2017-06-07] MEDS: Erythromycin OPTH Oint LEFT EYE SCH ×2 (18:02→22:09)
[2017-06-07] MEDS ORDERED: rOPINIRole 1 MG TABLET ONE (22:04)
[2017-06-07] MEDS: rOPINIRole 3 MG, rOPINIRole 1 MG PO SCH (22:08)
[2017-06-08] MEDS: MethylPREDNISolone 40 MG/ML VIAL IVP SCH ×4 (00:32→20:45)
[2017-06-08] MEDS: Ciprofloxacin OPTH Soln 2.5 ML BOTTLE BOTH EYES SCH ×6 (00:32→20:46)
[2017-06-08] MEDS: Ipratropium/Albuterol Neb 3 ML IH SCH ×4 (03:50→21:48)
[2017-06-08 04:20] LABS: Hematocrit 26.2 % (35.3-44.9); Hemoglobin 7.7 g/dL (11.5-15.4); Mean Corpuscular HGB Conc 29.4 g/dL (31.6-35.5); Mean Corpuscular Hemoglobin 28.8 pg (28.0-33.3); Mean Corpuscular Volume 98.1 fL (83.0-100.0); Mean Platelet Volume 10.6 fL (9.4-12.4); Platelet Count 102 K/mcL (140-400); Red Blood Count 2.67 M/mcL (3.82-4.97); Red Cell Distribution Width 15.5 % (11.5-14.5)
[2017-06-08 04:42] LABS: Calcium 9.1 mg/dL (8.6-10.3); Potassium 3.8 mEq/L (3.5-5.1)
[2017-06-08] MEDS: Folic Acid 1 MG TABLET PO SCH (08:13)
[2017-06-08] MEDS: Doxycycline 100 MG CAPSULE PO SCH ×2 (08:13→20:45)
[2017-06-08] MEDS: *HR* Amiodarone 200 MG TABLET PO SCH ×2 (08:13→20:45)
[2017-06-08] MEDS: FLUoxetine 20 MG CAPSULE PO SCH ×2 (08:13→20:45)
[2017-06-08] MEDS: Furosemide 40 MG TABLET PO SCH ×2 (08:13→18:17)
[2017-06-08] MEDS: Erythromycin OPTH Oint LEFT EYE SCH ×3 (08:14→20:46)
--- NOTE | 2017-06-08 08:26 | Internal Med Progress Note ---
Date of Encounter: 06/08/17 Time of Encounter: 08:23 - Assessment and plan (1) Acute on chronic respiratory failure with hypoxia and hypercapnia Current Visit: No Status: Acute Assessment and plan: Acute on chronic hypoxic and hypercapnic respiratory failure secondary to acute pulmonary edema due to possible volume overload and acute systolic and diastolic CHF exacerbation, also possible acute COPD exacerbation, likely viral bronchitis Echocardiogram from March 2017 shows an ejection fraction of 45% and diastolic dysfunction Mechanical aortic valve, severe biatrial enlargement, moderate to severe mitral regurgitation Chest x-ray showed:Features of congestive heart failure, including cardiomegaly , pulmonary vascular congestion, edema and effusions. Right basilar opacities favored to reflect a combination of fluid and atelectasis although superimposed airspace disease not excluded. Strict I's and O's and daily weight, decrease dose of Lasix continue solumedrol, duonebs Qualified for BiPAP ABG pH is 7.26 PCO2 to 108 PO2 118, continue BiPAP (2) Pulmonary edema Current Visit: No Status: Resolved Qualifiers: Chronicity: acute Qualified Code(s): J81.0 - Acute pulmonary edema (3) Acute blood loss anemia Current Visit: No Status: Acute Assessment and plan: Acute blood loss anemia likely secondary to upper GI bleed Upper endoscopy demonstrated grade a esophagitis, chronic gastritis and nonbleeding angiodysplastic lesion on the lesser curvature (cautherized) Hemoccult was positive, received 2 units of blood Patient did not want to be scoped by Dr. Rojo but was okay seeing Dr. Zelaya stopped IV fluids due to pulmonary edema omeprazole Hemoglobin A1c was 4.1, has no diabetes (4) Iron deficiency anemia secondary to blood loss (chronic) Current Visit: No Status: Acute (5) Atrial fibrillation Current Visit: No Status: Chronic Assessment and plan: Not on anticoagulation due to prior history of GI bleed since last year Continue amiodarone Qualifiers: Atrial fibrillation type: chronic Qualified Code(s): I48.2 - Chronic atrial fibrillation (6) Breast cancer, left Current Visit: No Status: Chronic Qualifiers: Breast location: unspecified site of breast Estrogen receptor status: unspecified Patient sex: female Qualified Code(s): C50.912 - Malignant neoplasm of unspecified site of left female breast (7) COPD (chronic obstructive pulmonary disease) Current Visit: No Status: Chronic Assessment and plan: history of chronic respiratory failure steroids Continue oxygen at 4 L continuously, bipap y Qualifiers: COPD type: chronic bronchitis Chronic bronchitis type: mucopurulent Qualified Code(s): J41.1 - Mucopurulent chronic bronchitis (8) Chronic kidney disease, stage 3 Current Visit: No Status: Chronic Assessment and plan: Lasix (9) H/O aortic valve replacement with tissue graft Current Visit: No Status: Chronic (10) History of implantable cardiac defibrillator (ICD) Current Visit: No Status: Chronic (11) Hypothyroidism Current Visit: No Status: Chronic Assessment and plan: Continue Synthroid Qualifiers: Hypothyroidism type: unspecified Qualified Code(s): E03.9 - Hypothyroidism , unspecified (12) Ventricular tachycardia Current Visit: No Status: Resolved (13) Conjunctivitis Current Visit: Yes Status: Acute Assessment and plan: ophthalmic solution of ciprofloxacin day 6 added oral doxycycline for possible blepharitis, early left preseptal celullitis Qualifiers: Conjunctivitis type: acute Acute conjunctivitis type: bacterial Laterality: bilateral Qualified Code(s): H10.33 - Unspecified acute conjunctivitis, bilateral (14) Blepharitis of eyelid of left eye Current Visit: Yes Status: Acute Qualifiers: Blepharitis type: unspecified type Eyelid: upper Qualified Code(s): H01.004 - Unspecified blepharitis left upper eyelid (15) Chalazion left upper eyelid Current Visit: Yes Status: Acute Assessment and plan: Multiple chalazia drained by Dr Bills erythomicin ophtalmic ointment culture (16) Pyogenic granuloma of eyelid Current Visit: Yes Status: Acute Assessment and plan: left lower eyelid, excised - Subjective Interval history: Following commands properly, denies CP or SOB, no abdominal pain , no dysuria or fevers, no signs of bleeding, now oriented in time - Constitutional Vitals: Temp Pulse Resp BP Pulse Ox 98.8 F 62 23 100/61 96 06/08/17 07:33 06/08/17 07:33 06/08/17 07:33 06/08/17 07:33 06/08/17 07:33 General appearance: Present: A&O X 3, answers questions appropriately - Head Head exam: Present: atraumatic, normocephalic - Eye Eye exam: Present: PERRL, conjuntiva pink, sclera anicteric Pupils: Present: PERRL Additional comments: Small surgical incisions in the left upper and lower eyelids, mild erythema, chalazia have been drained - Neck Neck exam general surgery: Present: supple, trachea midline. Absent: lymphadenopathy - Respiratory Respiratory exam: Present: CTAB. Absent: accessory muscle use, rales, rhonchi, wheezes - Cardiovascular Cardiovascular exam: Present: RRR, +S1, +S2. Absent: diastolic murmur, gallop, rubs, systolic murmur - GI/Abdominal GI/Abdominal exam: Present: normal bowel sounds, soft, no peritoneal signs. Absent: distended, tenderness - Extremities Exam Extremities exam: Present: warm, radial pulses palpable and symmetrical. Absent : calf tenderness, cyanotic, pedal edema - Neurological Exam Neurological exam: Present: CN II-XII intact, oriented X3, no focal deficits. Absent: pronater drift, facial droop, speech deficit - Skin Skin exam: Present: dry, intact Internal Medicine: Result - Labs CBC & Chem 7: 06/08/17 04:04 06/08/17 04:04 Labs: Short CBC 06/08/17 Range/Units 04:04 WBC 3.8 L (4.3-11.1) K/mcL Hgb 7.7 L (11.5-15.4) g/dL Hct 26.2 L (35.3-44.9) % Plt Count 102 L (140-400) K/mcL BMP 06/08/17 04:04 Sodium 140 Potassium 3.8 Chloride 92 L Carbon Dioxide 43 H* BUN 32 H Creatinine 1.49 H Glucose 149 H Calcium 9.1 - ABG Interpretation ABG results: ABG ABG pH 7.26 pH Units (7.32-7.45) L 06/07/17 08:19 ABG pCO2 108 mmHg (35-45) H* 06/07/17 08:19 ABG pO2 118 mmHg (85-104) H 06/07/17 08:19 ABG O2 Saturation 97 % (95-98) 06/07/17 08:19 PT/INR, D-dimer PT 11.4 Seconds (9.4-12.1) 06/03/17 09:19 - Impressions Impressions Lumbar Spine CT 06/06/17 23:16 IMPRESSION: CT lumbar spine is not significantly changed compared to 05/22/2014. Stable L3 biconcave endplate compression deformity. No evidence of acute osseous fracture. Moderate lumbar spondylosis. Consider correlation with MRI lumbar spine for better characterization of spinal canal and neural foraminal stenosis. D/ / 06/07/2017 07:09:04 Jarek Dorman / isha Interpreting Provider: Jarek Dorman Consult Discharge Plan - Plan Instructions: Doxycycline (By mouth), Hydrocodone/Acetaminophen (By mouth), Omeprazole (By mouth), Ciprofloxacin (Into the eye) Additional Instructions: Continue Lasix. Follow-up with the GI service within the next 7 days. Follow- up with a primary care physician within 7 days. Follow-up with ophthalmology within the next 7 days as well. Continue doxycycline and ciprofloxacin ophthalmic solution as prescribed. Referrals: [facility] [Provider Group] (Office will call you with and appointment date and time. If you do not hear from them please call the office. Thank you!) Francisco Melgar Jr [Primary Care Provider] - 06/13/17 2:10 pm (Please follow up as schedule..) Prescriptions: Ciprofloxacin OPTH Soln [Ciloxan OPTH Soln] 2 drop BOTH EYES Q4HR #1 bottle HYDROcodone/Acet 5/325 mg [[place] 5-325 mg] 1 tab PO Q6HR PRN 5 Days #20 tablet PRN Reason: Moderate Pain Doxycycline 100 mg PO BID #14 capsule Omeprazole [PriLOSEC] 40 mg PO DAILY #30 cap
[2017-06-08] MEDS: Budesonide/Formoterol 160/4.5 MDI IH SCH ×2 (10:52→21:48)
[2017-06-08] MEDS ORDERED: rOPINIRole 1 MG TABLET ONE (20:29)
[2017-06-08] MEDS: rOPINIRole 3 MG, rOPINIRole 1 MG PO SCH (20:44)
[2017-06-09] MEDS: Ciprofloxacin OPTH Soln 2.5 ML BOTTLE BOTH EYES SCH ×6 (00:37→22:20)
[2017-06-09 04:17] LABS: Hematocrit 26.9 % (35.3-44.9); Mean Corpuscular HGB Conc 29.7 g/dL (31.6-35.5); Mean Corpuscular Volume 97.5 fL (83.0-100.0); Mean Platelet Volume 10.7 fL (9.4-12.4); Platelet Count 105 K/mcL (140-400); Red Blood Count 2.76 M/mcL (3.82-4.97); Red Cell Distribution Width 15.9 % (11.5-14.5)
[2017-06-09] MEDS: Ipratropium/Albuterol Neb 3 ML IH SCH ×4 (04:39→22:10)
[2017-06-09 04:50] LABS: Calcium 9.2 mg/dL (8.6-10.3); Potassium 3.6 mEq/L (3.5-5.1)
--- NOTE | 2017-06-09 08:48 | Internal Med Progress Note ---
Date of Encounter: 06/09/17 Time of Encounter: 08:46 - Assessment and plan (1) Acute on chronic respiratory failure with hypoxia and hypercapnia Current Visit: No Status: Acute Assessment and plan: Acute on chronic hypoxic and hypercapnic respiratory failure secondary to acute pulmonary edema due to possible volume overload and acute systolic and diastolic CHF exacerbation, also possible acute COPD exacerbation, likely viral bronchitis Echocardiogram from March 2017 shows an ejection fraction of 45% and diastolic dysfunction Mechanical aortic valve, severe biatrial enlargement, moderate to severe mitral regurgitation Chest x-ray showed:Features of congestive heart failure, including cardiomegaly , pulmonary vascular congestion, edema and effusions. Right basilar opacities favored to reflect a combination of fluid and atelectasis although superimposed airspace disease not excluded. Strict I's and O's and daily weight,Lasix Qualified for BiPAP The patient's discharge was held as the patient developed confusion, was found to have a pH of 7.26 and PCO2 of 108 and a PO2 of 118. Responded properly to BiPAP. Also ophthalmology was consulted and Dr. Bills performed draining of several chalazia of the left upper lip lid, also had pyogenic granuloma on the left lower lid. Follow-up with Dr. Bills in 1 week. Use erythromycin ointment instilled into the left eye and on the excision sites on the left upper and lower eyelids 4 times daily for 1 week. The patient is at high risk for hypercapnic respiratory failure, qualify for BiPAP and will be discharged with BiPAP instructions especially at night or as needed. Prednisone taper will be required: 40 mg daily for 5 days, 30 mg for 5 days, 20 mg for 5 days and 10 mg for 5 days (2) Pulmonary edema Current Visit: No Status: Resolved Qualifiers: Chronicity: acute Qualified Code(s): J81.0 - Acute pulmonary edema (3) Acute blood loss anemia Current Visit: No Status: Acute Assessment and plan: Acute blood loss anemia likely secondary to upper GI bleed Upper endoscopy demonstrated grade a esophagitis, chronic gastritis and nonbleeding angiodysplastic lesion on the lesser curvature (cautherized) Hemoccult was positive, received 2 units of blood Patient did not want to be scoped by Dr. Rojo but was okay seeing Dr. Zelaya stopped IV fluids due to pulmonary edema omeprazole Hemoglobin A1c was 4.1, has no diabetes (4) Iron deficiency anemia secondary to blood loss (chronic) Current Visit: No Status: Acute (5) Atrial fibrillation Current Visit: No Status: Chronic Assessment and plan: Not on anticoagulation due to prior history of GI bleed since last year Continue amiodarone Qualifiers: Atrial fibrillation type: chronic Qualified Code(s): I48.2 - Chronic atrial fibrillation (6) Breast cancer, left Current Visit: No Status: Chronic Qualifiers: Breast location: unspecified site of breast Estrogen receptor status: unspecified Patient sex: female Qualified Code(s): C50.912 - Malignant neoplasm of unspecified site of left female breast (7) COPD (chronic obstructive pulmonary disease) Current Visit: No Status: Chronic Assessment and plan: history of chronic respiratory failure steroids Continue oxygen at 4 L continuously, bipap y Qualifiers: COPD type: chronic bronchitis Chronic bronchitis type: mucopurulent Qualified Code(s): J41.1 - Mucopurulent chronic bronchitis (8) Chronic kidney disease, stage 3 Current Visit: No Status: Chronic Assessment and plan: Lasix (9) H/O aortic valve replacement with tissue graft Current Visit: No Status: Chronic (10) History of implantable cardiac defibrillator (ICD) Current Visit: No Status: Chronic (11) Hypothyroidism Current Visit: No Status: Chronic Assessment and plan: Continue Synthroid Qualifiers: Hypothyroidism type: unspecified Qualified Code(s): E03.9 - Hypothyroidism , unspecified (12) Ventricular tachycardia Current Visit: No Status: Resolved (13) Conjunctivitis Current Visit: Yes Status: Acute Assessment and plan: ophthalmic solution of ciprofloxacin day 7 added oral doxycycline for possible blepharitis, early left preseptal celullitis, pyogenic granuloma/chalazia Qualifiers: Conjunctivitis type: acute Acute conjunctivitis type: bacterial Laterality: bilateral Qualified Code(s): H10.33 - Unspecified acute conjunctivitis, bilateral (14) Blepharitis of eyelid of left eye Current Visit: Yes Status: Acute Assessment and plan: acute Continue doxycycline Ophthalmology consulted Qualifiers: Blepharitis type: unspecified type Eyelid: upper Qualified Code(s): H01.004 - Unspecified blepharitis left upper eyelid (15) Chalazion left upper eyelid Current Visit: Yes Status: Acute (16) Pyogenic granuloma of eyelid Current Visit: Yes Status: Acute - Subjective Interval history: Feeling better, following commands properly, denies CP or SOB, no abdominal pain , no dysuria or fevers, no signs of bleeding, now oriented in time - Constitutional Vitals: Temp Pulse Resp BP Pulse Ox 97.7 F 95 16 105/62 100 06/09/17 05:19 06/09/17 05:19 06/09/17 05:19 06/09/17 05:19 06/09/17 05:19 General appearance: Present: A&O X 3, answers questions appropriately Exam: - Head Head exam: Present: atraumatic, normocephalic - Eye Eye exam: Present: PERRL, conjuntiva pink, sclera anicteric Pupils: Present: PERRL Additional comments: Small surgical incisions in the left upper and lower eyelids, mild erythema, chalazia have been drained - Neck Neck exam general surgery: Present: supple, trachea midline. Absent: lymphadenopathy - Respiratory Respiratory exam: Present: CTAB. Absent: accessory muscle use, rales, rhonchi, wheezes - Cardiovascular Cardiovascular exam: Present: RRR, +S1, +S2. Absent: diastolic murmur, gallop, rubs, systolic murmur - GI/Abdominal GI/Abdominal exam: Present: normal bowel sounds, soft, no peritoneal signs. Absent: distended, tenderness - Extremities Exam Extremities exam: Present: warm, radial pulses palpable and symmetrical. Absent : calf tenderness, cyanotic, pedal edema - Neurological Exam Neurological exam: Present: CN II-XII intact, oriented X3, no focal deficits. Absent: pronater drift, facial droop, speech deficit - Skin Skin exam: Present: dry, intact Internal Medicine: Result - Labs CBC & Chem 7: 06/09/17 04:00 06/09/17 04:00 Labs: Short CBC 06/09/17 Range/Units 04:00 WBC 5.8 D (4.3-11.1) K/mcL Hgb 8.0 L (11.5-15.4) g/dL Hct 26.9 L (35.3-44.9) % Plt Count 105 L (140-400) K/mcL BMP 06/09/17 04:00 Sodium 141 Potassium 3.6 Chloride 92 L Carbon Dioxide 44 H* BUN 37 H Creatinine 1.61 H Glucose 149 H Calcium 9.2 - ABG Interpretation ABG results: ABG ABG pH 7.26 pH Units (7.32-7.45) L 06/07/17 08:19 ABG pCO2 108 mmHg (35-45) H* 06/07/17 08:19 ABG pO2 118 mmHg (85-104) H 06/07/17 08:19 ABG O2 Saturation 97 % (95-98) 06/07/17 08:19 PT/INR, D-dimer PT 11.4 Seconds (9.4-12.1) 06/03/17 09:19 Consult Discharge Plan - Plan Instructions: Doxycycline (By mouth), Hydrocodone/Acetaminophen (By mouth), Omeprazole (By mouth), Ciprofloxacin (Into the eye) Additional Instructions: Continue Lasix. Follow-up with the GI service within the next 7 days. Follow- up with a primary care physician within 7 days. Follow-up with ophthalmology within the next 7 days as well. Continue doxycycline and ciprofloxacin ophthalmic solution as prescribed. Referrals: [facility] [Provider Group] (Office will call you with and appointment date and time. If you do not hear from them please call the office. Thank you!) Francisco Melgar Jr [Primary Care Provider] - 06/13/17 2:10 pm (Please follow up as schedule..) Prescriptions: Ciprofloxacin OPTH Soln [Ciloxan OPTH Soln] 2 drop BOTH EYES Q4HR #1 bottle HYDROcodone/Acet 5/325 mg [[place] 5-325 mg] 1 tab PO Q6HR PRN 5 Days #20 tablet PRN Reason: Moderate Pain Doxycycline 100 mg PO BID #14 capsule Omeprazole [PriLOSEC] 40 mg PO DAILY #30 cap
[2017-06-09] MEDS: Budesonide/Formoterol 160/4.5 MDI IH SCH ×2 (11:11→22:10)
[2017-06-09] MEDS: FLUoxetine 20 MG CAPSULE PO SCH ×2 (12:02→22:20)
[2017-06-09] MEDS: Doxycycline 100 MG CAPSULE PO SCH ×2 (12:02→22:20)
[2017-06-09] MEDS: *HR* HYDROcodone/Acet 5/325 mg TABLET PO PRN (12:02)
[2017-06-09] MEDS: Furosemide 40 MG TABLET PO SCH ×2 (12:03→16:37)
[2017-06-09] MEDS: *HR* Amiodarone 200 MG TABLET PO SCH ×2 (12:03→22:20)
[2017-06-09] MEDS: Folic Acid 1 MG TABLET PO SCH (12:05)
[2017-06-09] MEDS: MethylPREDNISolone 40 MG/ML VIAL IVP SCH ×2 (12:05→22:20)
[2017-06-09] MEDS: Erythromycin OPTH Oint LEFT EYE SCH ×3 (12:13→22:23)
[2017-06-09] MEDS: rOPINIRole 3 MG, rOPINIRole 1 MG PO SCH (22:23)
[2017-06-10] MEDS: Ciprofloxacin OPTH Soln 2.5 ML BOTTLE BOTH EYES SCH ×3 (02:50→10:24)
[2017-06-10] MEDS: Ipratropium/Albuterol Neb 3 ML IH SCH ×2 (04:26→11:13)
--- NOTE | 2017-06-10 09:23 | Internal Med Progress Note ---
Date of Encounter: 06/10/17 Time of Encounter: 10:30 - Assessment and plan (1) Acute on chronic respiratory failure with hypoxia and hypercapnia Current Visit: Yes Status: Acute Assessment and plan: Grating BiPAP better. Qualified for BiPAP use at home. This has been prescribed. Plan to discharge today to skilled rehabilitation with BiPAP. (2) Acute blood loss anemia Current Visit: Yes Status: Acute Assessment and plan: Due to esophagitis, gastritis. No new episodes of bleeding. Hemoglobin levels stable. (3) Atrial fibrillation Current Visit: No Status: Chronic Qualifiers: Atrial fibrillation type: paroxysmal Qualified Code(s): I48.0 - Paroxysmal atrial fibrillation (4) Conjunctivitis Current Visit: Yes Status: Acute Assessment and plan: Continue treatment with ciprofloxacin drops. Follow up with ophthalmology as outpatient. Complete antibiotic course with doxycycline. Qualifiers: Conjunctivitis type: acute Acute conjunctivitis type: bacterial Laterality: bilateral Qualified Code(s): H10.33 - Unspecified acute conjunctivitis, bilateral (5) COPD (chronic obstructive pulmonary disease) Current Visit: Yes Status: Chronic Assessment and plan: Continue bronchodilators as needed. Taper steroids. Qualifiers: COPD type: chronic bronchitis Chronic bronchitis type: mucopurulent Qualified Code(s): J41.1 - Mucopurulent chronic bronchitis (6) H/O aortic valve replacement with tissue graft Current Visit: No Status: Chronic (7) History of implantable cardiac defibrillator (ICD) Current Visit: No Status: Chronic (8) Hypothyroidism Current Visit: No Status: Chronic Qualifiers: Hypothyroidism type: unspecified Qualified Code(s): E03.9 - Hypothyroidism , unspecified (9) Iron deficiency anemia secondary to blood loss (chronic) Current Visit: Yes Status: Acute Assessment and plan: Continue iron replacement therapy (10) Pulmonary edema Current Visit: No Status: Resolved Assessment and plan: On Lasix Qualifiers: Chronicity: acute Qualified Code(s): J81.0 - Acute pulmonary edema (11) Chronic kidney disease, stage 3 Current Visit: Yes Status: Chronic Assessment and plan: Creatinine 1.6. Elevated above baseline due to IV diuretic use. Currently on oral diuretics. Follow as outpatient with nephrology (12) T2DM (type 2 diabetes mellitus) Current Visit: Yes Status: Chronic Assessment and plan: Hemoglobin A1c 4.1. Well-controlled Qualifiers: Diabetes mellitus complication status: with kidney complications Diabetes mellitus complication detail: with chronic kidney disease Diabetes mellitus buttermaker helper insulin use: without intermediate use Chronic kidney disease stage: stage 3 (moderate) Qualified Code(s): E11.22 - Type 2 diabetes mellitus with diabetic chronic kidney disease; N18.3 - Chronic kidney disease, stage 3 ( moderate); N18.3 - Chronic kidney disease, stage 3 (moderate) - Subjective Interval history: Patient is awake and alert. Has been off 1 to 1 sitter since 2PM yesterday without any issues. Tolerating BiPAP better. No new complaints at this time. - Constitutional Vitals: Temp Pulse Resp BP Pulse Ox 98 F 74 17 125/61 93 06/10/17 07:20 06/10/17 07:20 06/10/17 07:20 06/10/17 07:20 06/10/17 07:20 General appearance: Present: A&O X 3, answers questions appropriately - Eye Additional comments: Conjunctival erythema subsiding. Swelling is improving in the eyelids. - Respiratory Respiratory exam: Present: prolonged expiratory phase, wheezes. Absent: accessory muscle use, rales, rhonchi - Cardiovascular Cardiovascular exam: Present: RRR, +S1, +S2. Absent: diastolic murmur, gallop, rubs, systolic murmur - GI/Abdominal GI/Abdominal exam: Present: normal bowel sounds, soft, no peritoneal signs. Absent: distended, tenderness - Extremities Exam Extremities exam: Present: warm, radial pulses palpable and symmetrical. Absent : calf tenderness, cyanotic, pedal edema - Neurological Exam Neurological exam: Present: alert, CN II-XII intact, oriented X3, no focal deficits. Absent: facial droop, speech deficit Internal Medicine: Result - Labs CBC & Chem 7: 06/09/17 04:00 06/09/17 04:00 - ABG Interpretation ABG results: ABG ABG pH 7.26 pH Units (7.32-7.45) L 06/07/17 08:19 ABG pCO2 108 mmHg (35-45) H* 06/07/17 08:19 ABG pO2 118 mmHg (85-104) H 06/07/17 08:19 ABG O2 Saturation 97 % (95-98) 06/07/17 08:19 PT/INR, D-dimer PT 11.4 Seconds (9.4-12.1) 06/03/17 09:19 Consult Discharge Plan - Plan Instructions: Doxycycline (By mouth), Hydrocodone/Acetaminophen (By mouth), Omeprazole (By mouth), Ciprofloxacin (Into the eye) Additional Instructions: Continue Lasix. Follow-up with the GI service within the next 7 days. Follow- up with a primary care physician within 7 days. Follow-up with ophthalmology within the next 7 days as well. Continue doxycycline and ciprofloxacin ophthalmic solution as prescribed. Referrals: [facility] [place] [Provider Group] (Office will call you with and appointment date and time. If you do not hear from them please call the office. Thank you!) Francisco Melgar Jr [Primary Care Provider] - 06/13/17 2:10 pm (Please follow up as schedule..) Garcia Tidwell DO [Partnered Physician] - (2-3 weeks) Siva Bills DO [Non-Partnered Physician] - (within 1 week) Prescriptions: Ciprofloxacin OPTH Soln [Ciloxan OPTH Soln] 2 drop BOTH EYES Q4HR #1 bottle HYDROcodone/Acet 5/325 mg [[place] 5-325 mg] 1 tab PO Q6HR PRN 5 Days #20 tablet PRN Reason: Moderate Pain Doxycycline 100 mg PO BID #14 capsule Omeprazole [PriLOSEC] 40 mg PO DAILY #30 cap predniSONE [PredniSONE] 40 mg PO DAILY 8 Days tablet
[2017-06-10] MEDS: Erythromycin OPTH Oint LEFT EYE SCH (10:24)
[2017-06-10] MEDS: Doxycycline 100 MG CAPSULE PO SCH (10:25)
[2017-06-10] MEDS: Furosemide 40 MG TABLET PO SCH (10:25)
[2017-06-10] MEDS: MethylPREDNISolone 40 MG/ML VIAL IVP SCH (10:25)
[2017-06-10] MEDS: Folic Acid 1 MG TABLET PO SCH (10:25)
[2017-06-10] MEDS: FLUoxetine 20 MG CAPSULE PO SCH (10:26)
[2017-06-10] MEDS: *HR* Amiodarone 200 MG TABLET PO SCH (10:26)
[2017-06-10] MEDS: Budesonide/Formoterol 160/4.5 MDI IH SCH (11:13)
[2017-06-10 15:51] VITALS: BP 108/74
[2017-06-10] MEDS ORDERED: predniSONE 20 MG TABLET PO SCH (18:00)
== END 2017-06-10 16:40 | DRG 391 ==
LOC: EMEROO 19:47 → 2ANU 19:47 → SUATTDRO 06-03 03:07 → 2ANU 06-06 22:44
PROVIDERS: ADMIT Internal Medicine; ATTEND Internal Medicine

== ENCOUNTER 2017-07-08 11:10 | Inpatient (IN) ==
--- NOTE | 2017-07-08 11:25 | Emergency Department Note ---
Disposition Clinical Impression: Angiodysplasia Anemia Qualifiers: Anemia type: unspecified type Qualified Code(s): D64.9 - Anemia, unspecified Disposition: Admitted As Inpatient Condition: Fair Referrals: Francisco Melgar Jr [Primary Care Provider] - Forms: ED Satisfaction Letter, Work/School Release Time of Disposition: 13:13 General Adult HPI - General Chief complaint: ED General Medical Stated complaint: low hgb Time Seen by Provider: 07/08/17 11:17 Source: patient, EMS Mode of arrival: EMS Limitations: no limitations Nursing Notes Reviewed: Yes Vital Signs Reviewed: Yes - History of Present Illness HPI Narrative: 76-year-old with a history of breast cancer back in 207 whose had recurrent blood transfusions secondary 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 Patient is noted to have a hemoglobin of 6.8. She also has swelling and redness of the left upper extremity. Pt Subjective Complaint: Low hemoglobin left arm swelling Onset (ago): Just [employer] Location: left, upper extremity Radiation: non-radiation Pain Severity: moderate Quality: aching Consistency: constant Improves with: nothing Worsens with: nothing Associated symptoms: Reports: weakness (Generalized) Treatments Prior to Arrival: none - Related Data Home Medications Medication Instructions Recorded Confirmed Allopurinol [Zyloprim 300 MG] 300 mg PO DAILY 01/12/16 07/03/17 Calcium Carbonate [Calcium] 1,500 mg PO BID 04/22/16 07/03/17 Oxygen 4 l NS AD 04/22/16 07/03/17 Folic Acid 1 mg PO DAILY 05/28/16 07/03/17 Ranitidine HCl [Acid Research And Development Engineer] 150 mg PO BID 07/12/16 07/03/17 Albuterol Sulfate [Ventolin Hfa] 1 - 2 puff IH Q4-6H PRN 10/14/16 07/03/17 Umeclidinium [place] [Incruse 1 puff IH QPM 10/14/16 07/03/17 Ellipta] Levothyroxine Sodium [Levoxyl] 75 mcg PO QAM 06/03/17 07/03/17 Sacubitril/Valsartan 24/26 mg 1 tab PO BID 06/03/17 07/03/17 [Entresto 24 mg-26 mg Tablet] Fluticasone/Vilanterol [Breo 1 each IH BID 06/16/17 07/03/17 Ellipta 200-25 Mcg INH] Ondansetron ODT [Zofran ODT] 4 mg SL Q8H PRN 06/16/17 07/03/17 Ropinirole HCl [Requip Xl] 4 mg PO HS 06/16/17 07/03/17 Previous Rx's Medication Instructions Recorded Ferrous Sulfate 325 mg PO TIDWM #90 tablet 04/10/17 Ciprofloxacin OPTH Soln [Ciloxan 2 drop BOTH EYES Q4HR #1 bottle 06/05/17 OPTH Soln] Omeprazole [PriLOSEC] 40 mg PO DAILY #30 cap 06/05/17 Amiodarone [Cordarone] 200 mg PO DAILY #0 06/19/17 FLUoxetine HCl [Prozac] 20 mg PO DAILY capsule 06/19/17 Furosemide [Lasix] 40 mg PO BID tablet 06/19/17 Hydrocodone/Acetaminophen 1 each PO Q6H PRN 7 Days #28 tablet 06/19/17 [Hydrocodon-Acetaminophen 5-325] Allergies Allergy/AdvReac Type Severity Reaction Status Date / Time Penicillins Allergy Hives Verified 07/03/17 09:03 Sulfa (Sulfonamide Allergy Hives Verified 07/03/17 09:03 Antibiotics) gabapentin AdvReac Hallucinati Verified 07/03/17 09:03 ng Oxycodone [From Percocet] AdvReac Hallucinati Verified 07/03/17 09:03 ng All systems ED: reviewed and negative except as stated. Constitutional: Denies: fever, chills, weakness, weight change Eyes: Denies: eye pain, eye discharge, vision change ENT ED: Denies: ear pain, throat pain, dental pain, hearing loss, epistaxis, congestion, dysphagia Cardiovascular: Denies: chest pain, palpitations, dyspnea on exertion, edema, syncope Respiratory: Denies: cough, dyspnea, wheezes, hemoptysis, stridor Gastrointestinal: Denies: abdominal pain, nausea, vomiting, diarrhea, constipation, hematemesis, melena, hematochezia Genitourinary: Denies: dysuria, frequency, hematuria, discharge Musculoskeletal: Denies: back pain, neck pain, arthralgia, myalgia Integumentary: Denies: rash, abrasion, lesions Neurological: Reports: weakness (Generalized). Denies: headache, numbness, paresthesias, confusion, abnormal gait, vertigo Psychiatric: Denies: anxiety, depression, suicidal thoughts, homicidal thoughts , auditory hallucinations, visual hallucinations Endocrine: Denies: fatigue Hematological/Lymphatic: Denies: easy bleeding, easy bruising Allergic/Immunologic: Denies: facial swelling, urticaria Past Medical History - Past Medical History Medical history: Reports: asthma, atrial fibrillation, cancer, cardiomyopathy, CHF, COPD, GERD, GI bleed, renal disease, thyroid disease, valvular heart disease Surgical history: Reports: appendectomy, breast surgery, cancer surgery, heart valve replacement, hysterectomy, pacemaker/AICD Psychiatric history: Reports: anxiety, depression MANAGER TRADE MARKETING history: Reports: no MANAGER TRADE MARKETING history - Social History Smoking Status: Former smoker Smokeless Tobacco Status: No Alcohol use: Reports: none Drug use: Reports: none Physical Exam - General Limitations: no limitations General appearance: alert, in no apparent distress - Head Head exam: atraumatic, normocephalic, normal inspection - Eye Eye exam: Present: normal appearance, PERRL, EOMI - ENT ENT exam: normal exam, normal oropharynx, mucous membranes moist - Neck Neck exam: Present: normal inspection, full ROM, trachea midline - Chest Chest inspection: Present: normal inspection, symmetric chest wall rise - Respiratory Respiratory exam: Present: normal lung sounds bilaterally - Cardiovascular Cardiovascular exam: Present: regular rate, normal rhythm, normal heart sounds - Abdominal Exam Abdominal exam: Present: soft, Non-Tender. Absent: tenderness, distention, guarding, rebound, rigidity - Expanded Upper Extremity Exam Arm exam: Present: tenderness, swelling, erythema Vascular exam: Normal: capillary refill, radial pulse - Expanded Lower Extremity Exam Hip/Pelvis exam: Present: normal inspection, full ROM Neurovascular/Tendon exam: Absent: motor deficit, sensory deficit, tendon deficit Gait: not tested/not observed - Back Exam Back exam: Present: normal inspection, full ROM. Absent: tenderness - Neurological Exam Neurological exam: Present: alert, oriented X3 - Psychiatric Psychiatric exam: Present: normal affect, normal mood - Skin Skin exam: Present: warm, dry, intact, normal color Course - Reevaluation(s) Reevaluation #1: 76-year-old female with bleeding from angiodysplasia most likely with anemia. Patient will be admitted. The patient had a Doppler with a cephalic vein clot. Time: 13:12 - Consultations Consultation #1: Discussed with Amy sanon oncology will see the patient in consultation. Time: 13: Consultation #2: Discussed with Dr. Rojo, who recommends 1 unit of blood. Time: : Consultation #3: Discussed with , admit. Time: 13:13 Vital Signs Temperature 97.4 F L 07/08/17 11:15 Pulse Rate 56 07/08/17 11:15 Respiratory Rate 18 07/08/17 11:15 Blood Pressure 88/51 07/08/17 11:15 O2 Sat by Pulse Oximetry 99 07/08/17 11:15 Temperature 97.4 F L 07/08/17 11:15 Pulse Rate 52 07/08/17 12:50 Respiratory Rate 18 07/08/17 12:50 Blood Pressure 90/38 07/08/17 12:50 O2 Sat by Pulse Oximetry 97 07/08/17 12:50 Oxygen Delivery Oxygen Delivery Nasal Cannula Medical Decision Making - Lab Data Lab results reviewed: Yes I reviewed the patient's lab results. Result diagrams: 07/08/17 11:26 07/08/17 11:26 Lab Results 07/08/17 07/08/17 07/08/17 Range/Units 11:26 11:26 11:26 WBC 3.8 L (4.3-11.1) K/mcL RBC 2.79 L (3.82-4.97) M/mcL Hgb 7.7 L (11.5-15.4) g/dL Hct 26.1 L (35.3-44.9) % MCV 93.5 (83.0-100.0) fL MCH 27.6 L (28.0-33.3) pg MCHC 29.5 L (31.6-35.5) g/dL RDW 18.1 H (11.5-14.5) % Plt Count 73 L (140-400) K/mcL MPV 12.1 (9.4-12.4) fL Immature Gran % 0.5 (0-4) % Seg Neutrophils % 82.2 % Lymphocytes % 8.0 % Monocytes % 8.5 % Eosinophils % 0.8 % Basophils % 0.0 % Neutrophils # 3.1 (1.6-8.9) K/mcL Lymphocytes # 0.3 L (0.6-4.6) K/mcL Monocytes # 0.3 (0.0-1.3) K/mcL Eosinophils # 0.0 (0.0-0.6) K/mcL Basophils # 0.0 (0.0-0.2) K/mcL Platelet Estimate Slight Decrease L (Normal) Immature Plt Fraction 7.5 H (1.1-6.1) % Hypochromasia Present A (Not Present) Anisocytosis 1+ A (Not Present) PT 10.1 (9.4-12.1) Seconds INR 0.9 APTT 28.6 (26.0-36.0) Seconds Sodium 139 (136-145) mEq/L Potassium 4.1 (3.5-5.1) mEq/L Chloride 95 L (98-107) mEq/L Carbon Dioxide 37 H (23-29) mEq/L BUN 50 H (8-23) mg/dL Creatinine 2.22 H (0.60-1.20) mg/dL Est GFR ( Amer) 26 L (> 60) Est GFR (Non-Af Amer) 21 L (> 60) BUN/Creatinine Ratio 23 (6-26) Glucose 94 (70-105) mg/dL Calculated Osmolality 301 H (280-300) Lactic Acid (0.5-2.2) mmol/L Calcium 8.9 (8.6-10.3) mg/dL Blood Type Antibody Screen Crossmatch 07/08/17 07/08/17 Range/Units 11:26 11:26 WBC (4.3-11.1) K/mcL RBC (3.82-4.97) M/mcL Hgb (11.5-15.4) g/dL Hct (35.3-44.9) % MCV (83.0-100.0) fL MCH (28.0-33.3) pg MCHC (31.6-35.5) g/dL RDW (11.5-14.5) % Plt Count (140-400) K/mcL MPV (9.4-12.4) fL Immature Gran % (0-4) % Seg Neutrophils % % Lymphocytes % % Monocytes % % Eosinophils % % Basophils % % Neutrophils # (1.6-8.9) K/mcL Lymphocytes # (0.6-4.6) K/mcL Monocytes # (0.0-1.3) K/mcL Eosinophils # (0.0-0.6) K/mcL Basophils # (0.0-0.2) K/mcL Platelet Estimate (Normal) Immature Plt Fraction (1.1-6.1) % Hypochromasia (Not Present) Anisocytosis (Not Present) PT (9.4-12.1) Seconds INR APTT (26.0-36.0) Seconds Sodium (136-145) mEq/L Potassium (3.5-5.1) mEq/L Chloride (98-107) mEq/L Carbon Dioxide (23-29) mEq/L BUN (8-23) mg/dL Creatinine (0.60-1.20) mg/dL Est GFR ( Amer) (> 60) Est GFR (Non-Af Amer) (> 60) BUN/Creatinine Ratio (6-26) Glucose (70-105) mg/dL Calculated Osmolality (280-300) Lactic Acid 0.6 (0.5-2.2) mmol/L Calcium (8.6-10.3) mg/dL Blood Type O POSITIVE Antibody Screen NEGATIVE Crossmatch See Detail - Radiology Data Radiology results reviewed: Yes I reviewed the patient's radiology results. Chest X-Ray 07/08/17 11:41 IMPRESSION: Vascular congestion without overt pulmonary edema. Probable small right pleural effusion. D/ / Rainer Miller MD / Rainer Miller MD Interpreting Provider: Rainer Miller MD - EKG Data EKG #1 EKG attestation: Yes I reviewed and interpreted this EKG. EKG shows normal: sinus rhythm Rhythm: NSR [place]/QRS: LBBB Interpretation: no acute changes
[2017-07-08 11:44] LABS: Immature Granulocytes % 0.5 % (0-4); Red Cell Distribution Width 18.1 % (11.5-14.5)
[2017-07-08 11:46] LABS: Eosinophils % 0.8 %; Hematocrit 26.1 % (35.3-44.9); Immature Platelets 7.5 % (1.1-6.1); Lymphocytes # 0.3 K/mcL (0.6-4.6); Mean Corpuscular HGB Conc 29.5 g/dL (31.6-35.5); Mean Corpuscular Hemoglobin 27.6 pg (28.0-33.3); Mean Corpuscular Volume 93.5 fL (83.0-100.0); Mean Platelet Volume 12.1 fL (9.4-12.4); Monocytes # 0.3 K/mcL (0.0-1.3); Monocytes % 8.5 %; Neutrophils # 3.1 K/mcL (1.6-8.9); Red Blood Count 2.79 M/mcL (3.82-4.97); Segmented Neutrophils % 82.2 %
[2017-07-08 11:48] LABS: INR 0.9; Prothrombin Time 10.1 Seconds (9.4-12.1)
[2017-07-08 11:51] LABS: Activated Partial Thrombo Time 28.6 Seconds (26.0-36.0)
[2017-07-08 11:55] LABS: Hemoglobin 7.7 g/dL (11.5-15.4); Platelet Count 73 K/mcL (140-400)
[2017-07-08 12:13] LABS: Platelet Estimate Slight Decrease (Normal)
[2017-07-08 12:14] LABS: Anisocytosis 1+ (Not Present)
[2017-07-08 12:15] LABS: Calcium 8.9 mg/dL (8.6-10.3); Hypochromasia Present (Not Present); Potassium 4.1 mEq/L (3.5-5.1)
[2017-07-08] MEDS ORDERED: 0.9 % Sodium Chloride 1,000 ML ONE (13:23)
--- NOTE | 2017-07-08 13:46 | Internal Med History&Physical ---
Date of Encounter: 07/08/17 Time of Encounter: 13:42 Assessment and Plan (1) Anemia Current visit: Yes Status: Chronic Severe iron deficiency anemia likely some contribution also chronic recurrent GI bleed GI has been consulted for further evaluation Qualifiers: Anemia type: unspecified type Qualified Code(s): D64.9 - Anemia, unspecified (2) Angiodysplasia Current visit: Yes Status: Acute Angiodysplasia of the duodenum recurrent GI bleed (3) Iron deficiency anemia Current visit: No Status: Chronic Resume iron supplement Qualifiers: Iron deficiency anemia type: other iron deficiency Qualified Code(s): D50.8 - Other iron deficiency anemias (4) Chronic kidney disease, stage 3 Current visit: No Status: Chronic Chronic creatinine no significant change from baseline (5) S/P AVR (aortic valve replacement) Current visit: No Status: Chronic (6) T2DM (type 2 diabetes mellitus) Current visit: No Status: Chronic Chronic resume home medication and place on sliding scale Qualifiers: Diabetes mellitus shelter insulin use: without terminal press operator use Diabetes mellitus complication status: with kidney complications Diabetes mellitus complication detail: with chronic kidney disease Chronic kidney disease stage : stage 3 (moderate) Qualified Code(s): E11.22 - Type 2 diabetes mellitus with diabetic chronic kidney disease; N18.3 - Chronic kidney disease, stage 3 ( moderate); N18.3 - Chronic kidney disease, stage 3 (moderate) (7) Type 2 diabetes mellitus Current visit: No Status: Chronic Chronic Qualifiers: Diabetes mellitus shelter insulin use: without terminal press operator use Diabetes mellitus complication status: with circulatory complication Diabetes mellitus complication detail: with other circulatory complications Qualified Code(s): E11.59 - Type 2 diabetes mellitus with other circulatory complications (8) DVT (deep venous thrombosis) Current visit: Yes Status: Acute Acute DVT of left upper extremity oncology has been consult taped complicating the patient recurrent GI bleed as well Qualifiers: DVT location: upper extremity Affected thrombotic vein of extremity: other upper extremity vein Chronicity: acute Laterality: left Qualified Code(s) : I82.622 - Acute embolism and thrombosis of deep veins of left upper extremity Internal Medicine - H&P: HPI Chief complaint: anemia aand left arm swelling Admitted From: Home Plans for Post Hospital Care: Home History of present illness: Ms. Higginbotham is a 76 year old female Patient with history of recurrent GI bleed due to an angiodysplasia,of duodenal , iron deficiency anemia, COPD, diabetes, atrial fibrillation, aortic valve replacement patient had ICD and pacemaker also, history of breast cancer on chemotherapy and radiation, anxiety and depression and chronic systolic heart failure. Patient was at the cancer colonic had some lab drawn which came back hgb 6.8 she was called and asked to go to the emergency room for follow evaluation patient also has some swelling and redness of left upper arm ultrasound shows a DVT patient having some symptoms of weakness and increased shortness of breath and denies any chest pain. Patient has had multiple transfusions in the past oncology is consulted and also GI has also been consulted for follow evaluation and treatment Past Med Surg Social Fam HX - Past Medical History Medical history: asthma, atrial fibrillation, cancer, cardiomyopathy, CHF, COPD , GERD, GI bleed, renal disease, thyroid disease, valvular heart disease Psychiatric history: anxiety, depression - Past Surgical History Surgical History: appendectomy, breast surgery, cancer surgery, heart valve replacement, hysterectomy, pacemaker/AICD - Social History Smoking Status: Former smoker Smokeless Tobacco Status: No Alcohol use: none Drug use: none - Family History Mother Family Member Ethnicity: Non- Living Status: Hx Family Cardiac Disorders: No Hx Family Respiratory Disorders: No Hx Family Cancer: Yes Hx Family GI Disorders: No Hx Family Endocrine Disorder: No Hx Family Neuromuscular Disorders: No Hx Family Neurologic Disorders: No Hx Family HEENT Disorders: No Hx Family Autoimmune Disorders: No Father Living Status: Hx Family Cardiac Disorders: Yes Hx Family Respiratory Disorders: No Hx Family Cancer: Yes Hx Family GI Disorders: No Hx Family Endocrine Disorder: No Hx Family Neuromuscular Disorders: No Hx Family Neurologic Disorders: No Hx Family HEENT Disorders: No Hx Family Autoimmune Disorders: No Internal Medicine - H&P: Meds Allopurinol [Zyloprim 300 MG] 300 mg PO DAILY 01/12/16 [History] Calcium Carbonate [Calcium] 1,500 mg PO BID 04/22/16 [History] Oxygen 4 l NS AD 04/22/16 [History] Folic Acid 1 mg PO DAILY 05/28/16 [History] Ranitidine HCl [Acid Operational Intelligence Analyst] 150 mg PO BID 07/12/16 [History] Albuterol Sulfate [Ventolin Hfa] 1 - 2 puff IH Q4-6H PRN 10/14/16 [History] Umeclidinium [place] [Incruse Ellipta] 1 puff IH QPM 10/14/16 [History] Ferrous Sulfate 325 mg PO TIDWM #90 tablet 04/10/17 [Rx] Levothyroxine Sodium [Levoxyl] 75 mcg PO QAM 06/03/17 [History] Sacubitril/Valsartan 24/26 mg [Entresto 24 mg-26 mg Tablet] 1 tab PO BID [History] Ciprofloxacin OPTH Soln [Ciloxan OPTH Soln] 2 drop BOTH EYES Q4HR #1 bottle [Rx] Omeprazole [PriLOSEC] 40 mg PO DAILY #30 cap 06/05/17 [Rx] Fluticasone/Vilanterol [Breo Ellipta 200-25 Mcg INH] 1 each IH BID 06/16/17 [ History] Ondansetron ODT [Zofran ODT] 4 mg SL Q8H PRN 06/16/17 [History] Ropinirole HCl [Requip Xl] 4 mg PO HS 06/16/17 [History] Amiodarone [Cordarone] 200 mg PO DAILY #0 06/19/17 [Rx] FLUoxetine HCl [Prozac] 20 mg PO DAILY capsule 06/19/17 [Rx] Furosemide [Lasix] 40 mg PO BID tablet 06/19/17 [Rx] Hydrocodone/Acetaminophen [Hydrocodon-Acetaminophen 5-325] 1 each PO Q6H PRN 7 Days #28 tablet 06/19/17 [Rx] 3 Allergy/AdvReac Type Severity Reaction Status Date / Time Penicillins Allergy Hives Verified 07/08/17 13:31 Sulfa (Sulfonamide Allergy Hives Verified 07/08/17 13:31 Antibiotics) gabapentin AdvReac Hallucinati Verified 07/08/17 13:31 ng Oxycodone [From Percocet] AdvReac Hallucinati Verified 07/08/17 13:31 ng All Systems PM: A 10-system review of systems was performed and is negative for pertinent findings except as documented above in the HPI. - Constitutional Vitals: Temp Pulse Resp BP Pulse Ox 96.4 F L 50 18 86/40 99 07/08/17 13:30 07/08/17 13:30 07/08/17 13:30 07/08/17 13:30 07/08/17 13:30 General appearance: Present: mild distress - Eye Eye exam: Present: PERRL, conjuntiva pink, sclera anicteric Pupils: Present: PERRL - Neck Neck exam general surgery: Present: supple, trachea midline. Absent: lymphadenopathy - Respiratory Respiratory exam: Present: rhonchi - Cardiovascular Cardiovascular exam: Present: RRR, systolic murmur - GI/Abdominal GI/Abdominal exam: Present: normal bowel sounds, soft, no peritoneal signs. Absent: distended, tenderness - Extremities Exam Extremities exam: Present: pedal edema Internal Med - H&P Results - Labs CBC & Chem 7: 07/08/17 11:26 07/08/17 11:26 Labs: Short CBC 07/08/17 Range/Units 11:26 WBC 3.8 L (4.3-11.1) K/mcL Hgb 7.7 L (11.5-15.4) g/dL Hct 26.1 L (35.3-44.9) % Plt Count 73 L (140-400) K/mcL Neutrophils # 3.1 (1.6-8.9) K/mcL BMP 07/08/17 11:26 Sodium 139 Potassium 4.1 Chloride 95 L Carbon Dioxide 37 H BUN 50 H Creatinine 2.22 H Glucose 94 Calcium 8.9 - Impressions ITS Impressions Chest X-Ray 07/08/17 11:41 IMPRESSION: Vascular congestion without overt pulmonary edema. Probable small right pleural effusion. D/ / Rainer Miller MD / Rainer Miller MD Interpreting Provider: Rainer Miller MD
[2017-07-08] MEDS ORDERED: Acetaminophen 325 MG TABLET PO PRN (13:54)
[2017-07-08] MEDS ORDERED: Naloxone 0.4 MG/ML INJ IVP PRN (13:54)
[2017-07-08] MEDS ORDERED: D5% in Water 1,000 ML IVC PRN (14:28)
[2017-07-08] MEDS ORDERED: *HR* Dextrose 50 % in Water (Syg) 50 ML SYRINGE IVP PRN (14:28)
[2017-07-08] MEDS ORDERED: Dextrose Gel 15 GM/37.5 ML TUBE PO PRN ×2 (14:28)
[2017-07-08 15:16] LABS: Troponin I 0.04 ng/mL (< 0.04)
[2017-07-08] MEDS ORDERED: (Umeclidinium Bromide [Incruse Ellipta] 1 PUFF) IH SCH (18:00)
[2017-07-08] MEDS: Insulin LISPRO 300 UNITS/3 ML VIAL SQ SCH ×2 (18:38→22:56)
[2017-07-08] MEDS ORDERED: (Ropinirole Hcl [Requip Xl] 4 MG) PO SCH (21:00)
[2017-07-08] MEDS ORDERED: 0.9 % Sodium Chloride 250 ML ONE (22:37)
[2017-07-08] MEDS: Famotidine 20 MG TABLET PO SCH (22:55)
[2017-07-08] MEDS: Furosemide 40 MG TABLET PO SCH (22:56)
[2017-07-08] MEDS: (Fluticasone/Vilanterol [Breo Ellipta 200-25 Mcg Inh] IH SCH (22:57)
[2017-07-08] MEDS: traMADol 50 MG TABLET PO PRN (23:10)
[2017-07-09] MEDS: SACUBITRIL/VALSARTAN 24/26 MG TABLET PO SCH ×3 (01:56→21:22)
[2017-07-09 03:23] LABS: Eosinophils # 0.1 K/mcL (0.0-0.6); Eosinophils % 1.4 %; Hematocrit 28.2 % (35.3-44.9); Hemoglobin 8.7 g/dL (11.5-15.4); Immature Granulocytes % 0.9 % (0-4); Immature Platelets 6.9 % (1.1-6.1); Lymphocytes # 0.3 K/mcL (0.6-4.6); Mean Corpuscular HGB Conc 30.9 g/dL (31.6-35.5); Mean Corpuscular Hemoglobin 28.3 pg (28.0-33.3); Mean Corpuscular Volume 91.9 fL (83.0-100.0); Mean Platelet Volume 12.1 fL (9.4-12.4); Monocytes # 0.3 K/mcL (0.0-1.3); Monocytes % 7.9 %; Neutrophils # 3.6 K/mcL (1.6-8.9); Platelet Count 69 K/mcL (140-400); Red Blood Count 3.07 M/mcL (3.82-4.97); Segmented Neutrophils % 82.8 %
[2017-07-09 03:29] LABS: Albumin/Globulin Ratio 1.4 (1.1-2.2); Calcium 8.5 mg/dL (8.6-10.3); Globulin 2.1 g/dL (2.4-3.5); Magnesium 2.3 mg/dL (1.6-2.6); Potassium 4.3 mEq/L (3.5-5.1); Total Protein 5.1 g/dL (6.4-8.9)
[2017-07-09] MEDS: traMADol 50 MG TABLET PO PRN (06:30)
[2017-07-09] MEDS: FLUoxetine 20 MG CAPSULE PO SCH (07:49)
[2017-07-09] MEDS: Furosemide 40 MG TABLET PO SCH ×3 (07:50→17:23)
[2017-07-09] MEDS: Famotidine 20 MG TABLET PO SCH ×2 (07:50→21:21)
[2017-07-09] MEDS: *HR* Amiodarone 200 MG TABLET PO SCH (07:50)
[2017-07-09] MEDS: Insulin LISPRO 300 UNITS/3 ML VIAL SQ SCH ×4 (07:51→21:22)
[2017-07-09] MEDS: (Fluticasone/Vilanterol [Breo Ellipta 200-25 Mcg Inh] IH SCH (07:51)
[2017-07-09 09:20] LABS: % Iron Saturation 12 % (15-50); Ferritin 198 ng/ml (10-120); Iron 32 mcg/dL (50-170); Transferrin 198 mg/dL (203-362)
--- NOTE | 2017-07-09 10:49 | Gastroenterology Consult Note ---
<KohlerBonilla Boswell - Last Filed: 07/09/17 10:46> Date of Encounter: 07/09/17 Time of Encounter: 10:20 - Assessment and plan (1) Anemia Current Visit: No Status: Acute Assessment and plan: Hgb was 6.8 and she received 2 units PRBC. Hgb this morning 8.7. Continue to monitor CBC and transfuse PRBC as needed. Plan for enteroscopy and colonoscopy tomorrow. Clear liquid diet today, no red or purple. NPO at midnight. If unable tolerate NuLytely please use MiraLAX prep. If not clear by 6 AM, give 2 tap water enemas. Qualifiers: Anemia type: iron deficiency Iron deficiency anemia type: chronic blood loss Qualified Code(s): D50.0 - Iron deficiency anemia secondary to blood loss (chronic) (2) Angiodysplasia of gastrointestinal tract Current Visit: Yes Status: Acute Assessment and plan: AVMs noted on previous EGD and colonoscopy dating back to 2015. Plan for enteroscopy and colonoscopy tomorrow. Clear liquid diet today, no red or purple. NPO at midnight. If unable tolerate NuLytely please use MiraLAX prep. If not clear by 6 AM, give 2 tap water enemas. Capsule endoscopy was recommended after colonoscopy 06/04/2016 but procedure was never completed. (3) DVT (deep venous thrombosis) Current Visit: Yes Status: Acute Assessment and plan: Management per primary service. Qualifiers: DVT location: upper extremity Affected thrombotic vein of extremity: other upper extremity vein Chronicity: acute Laterality: left Qualified Code(s) : I82.622 - Acute embolism and thrombosis of deep veins of left upper extremity - Time Spent With Patient Total time spent is greater than 50% in coordination of care (as documented) at patient's floor/unit and/or counseling patient: GI History of Present Illness - Data of Consult Patient: known to practice within the last 3 years Consult date: 07/09/17 Requesting Physician: Shauna Llanes MD - Consult Narrative Reason for consult: Anemia History of present illness: Ms. Higginbotham is a 76 year old female with PMHx of recurrent GI bleed due to AVM, CHF , COPD, DM, aortic valve replacement, Afib, ICD and pacemaker, chronic RUMA, stage II breast cancer s/p chemo and radiation who presented to the ED for evaluation of anemia. She had labs drawn yesterday and Hgb was 6.8. On admission , Hgb 7.7 and she received 2 units PRBC. Hgb this morning was 8.7. Her last iron level was 19 on 06/03/2017 and ferritin 260 on 05/23/2017. Pt also reported some swelling and redness of left upper arm and ultrasound showed DVT in the left cephalic vein. She complained of weakness and shortness of breath. She denies fever, chills, chest pain, abdominal pain, nausea, vomiting, melena, or hematochezia. We have been consulted to evaluate her anemia. Procedures: EGD 06/03/2017 Dr. Zelaya: LA Grade A esophagitis, chronic gastritis , single nonbleeding AVM. Colonoscopy 06/04/2016 Dr. Rojo: Single nonbleeding AVM treated with APC, internal hemorrhoids. Recommended capsule endoscopy-not completed. EGD 06/04/2016 Dr. Rojo: Small hiatal hernia, single red spot with no bleeding in duodenum, questionable AVM, treated with APC. Colonoscopy 08/13/2015 Dr. Rojo: Single nonbleeding AVM treated with APC, diverticulosis, internal hemorrhoids. Small bowel enteroscopy 08/13/2015 Dr. Rojo: Three nonbleeding AVM in duodenum and one in stomach, treated with APC. EGD 07/15/2015 Dr. Sweet: Small hiatus hernia, two nonbleeding AVM treated with APC. NSAIDs: None Anticoagulation: None Past Med Surg Social Fam HX - Past Medical History Medical history: asthma, atrial fibrillation, cancer, cardiomyopathy, CHF, COPD , GERD, GI bleed, renal disease, thyroid disease, valvular heart disease Psychiatric history: anxiety, depression - Past Surgical History Surgical History: appendectomy, breast surgery, cancer surgery, heart valve replacement, hysterectomy, pacemaker/AICD - Social History Smoking Status: Former smoker Smokeless Tobacco Status: No Alcohol use: none Drug use: none - Family History Mother Family Member Ethnicity: Non- Living Status: Hx Family Cardiac Disorders: No Hx Family Respiratory Disorders: No Hx Family Cancer: Yes Hx Family GI Disorders: No Hx Family Endocrine Disorder: No Hx Family Neuromuscular Disorders: No Hx Family Neurologic Disorders: No Hx Family HEENT Disorders: No Hx Family Autoimmune Disorders: No Father Living Status: Hx Family Cardiac Disorders: Yes Hx Family Respiratory Disorders: No Hx Family Cancer: Yes Hx Family GI Disorders: No Hx Family Endocrine Disorder: No Hx Family Neuromuscular Disorders: No Hx Family Neurologic Disorders: No Hx Family HEENT Disorders: No Hx Family Autoimmune Disorders: No - Gastrointestinal Gastrointestinal: Present: as per HPI - Constitutional Constitutional: as per HPI - EENT Eyes: as per HPI Ears: Present: as per HPI Nose, mouth and throat: Present: as per HPI - Cardiovascular Cardiovascular ROS: Present: as per HPI - Respiratory Respiratory IM: Present: as per HPI - Genitourinary Genitourinary: Absent: change in color, Urinary frequency - Neurological ROS Neurological GI: Present: as per HPI - Hematologic/Lymphatic Hematologic/Lymphatic pediatric: Present: as per HPI - Musculoskeletal Musculoskeletal ROS GI: Present: as per HPI - Integumentary Integumentary GI: Present: as per HPI - Psychiatric ROS Psychiatric GI: Present: as per HPI - Endocrine Endocrine IM: Present: as per HPI - Constitutional Vitals: Temp Pulse Resp BP Pulse Ox 97.3 F L 53 18 96/47 100 07/09/17 07:20 07/09/17 07:20 07/09/17 07:20 07/09/17 07:20 07/09/17 08:00 General appearance: Present: cooperative, A&O X 3, no acute distress, answers questions appropriately - Head Head exam: Present: atraumatic, normocephalic - Eye Eye exam: Present: normal appearance, sclera anicteric - ENT ENT exam: Present: mucous membranes moist - Neck Neck exam general surgery: Present: normal inspection, trachea midline - Respiratory Respiratory exam: Present: decreased breath sounds, CTAB. Absent: rales, rhonchi - Cardiovascular Cardiovascular exam: Present: RRR, +S1, +S2 - GI/Abdominal GI/Abdominal exam: Present: soft, no peritoneal signs. Absent: distended, firm , guarding, tenderness - Rectal Rectal exam: Present: deferred - Extremities Exam Extremities exam: Present: pedal edema, warm Additional comments: LUE edema - Neurological Exam Neurological exam: Present: no focal deficits - Psychiatric Psychiatric exam: Present: normal affect, normal mood - Skin Skin exam: Present: dry, intact, normal color, warm Results - Labs CBC & Chem 7: 07/09/17 02:55 07/09/17 02:55 Labs: Last Result Calcium 8.5 mg/dL (8.6-10.3) L 07/09/17 02:55 Iron 32 mcg/dL (50-170) L 07/09/17 08:48 % Saturation 12 % (15-50) L 07/09/17 08:48 Transferrin 198 mg/dL (203-362) L 07/09/17 08:48 Ferritin 198 ng/ml (10-120) H 07/09/17 08:48 Troponin I 0.03 ng/mL (< 0.04) 07/09/17 02:55 Entire Visit Hgb 8.7 g/dL (11.5-15.4) L 07/09/17 02:55 Hct 28.2 % (35.3-44.9) L 07/09/17 02:55 PT 10.1 Seconds (9.4-12.1) 07/08/17 11:26 Ferritin 198 ng/ml (10-120) H 07/09/17 08:48 Total Bilirubin 1.0 mg/dL (0.3-1.0) 07/09/17 02:55 AST 15 Units/L (13-39) 07/09/17 02:55 ALT 13 Units/L (7-52) 07/09/17 02:55 - ABG ABG results: PT/INR, D-dimer PT 10.1 Seconds (9.4-12.1) 07/08/17 11:26 Consult Discharge Plan - Plan Referrals: Francisco Melgar Jr [Primary Care Provider] - <Ninfa Rojo - Last Filed: 07/09/17 19:04> Date of Encounter: 07/09/17 Time of Encounter: 14:00 - Time Spent With Patient Total time spent is greater than 50% in coordination of care (as documented) at patient's floor/unit and/or counseling patient: GI History of Present Illness - Data of Consult Requesting Physician: Shauna Llanes MD - Consult Narrative History of present illness: Ms. Higginbotham is a 76 year old female - Constitutional Vitals: Temp Pulse Resp BP Pulse Ox 97.6 F 56 22 122/72 100 07/09/17 16:40 07/09/17 16:40 07/09/17 16:40 07/09/17 16:40 07/09/17 16:40 Results - Labs CBC & Chem 7: 07/09/17 02:55 07/09/17 02:55 Labs: Last Result Calcium 8.5 mg/dL (8.6-10.3) L 07/09/17 02:55 Iron 32 mcg/dL (50-170) L 07/09/17 08:48 % Saturation 12 % (15-50) L 07/09/17 08:48 Transferrin 198 mg/dL (203-362) L 07/09/17 08:48 Ferritin 198 ng/ml (10-120) H 07/09/17 08:48 Troponin I 0.03 ng/mL (< 0.04) 07/09/17 02:55 Entire Visit Hgb 8.7 g/dL (11.5-15.4) L 07/09/17 02:55 Hct 28.2 % (35.3-44.9) L 07/09/17 02:55 PT 10.1 Seconds (9.4-12.1) 07/08/17 11:26 Ferritin 198 ng/ml (10-120) H 07/09/17 08:48 Total Bilirubin 1.0 mg/dL (0.3-1.0) 07/09/17 02:55 AST 15 Units/L (13-39) 07/09/17 02:55 ALT 13 Units/L (7-52) 07/09/17 02:55 - ABG ABG results: PT/INR, D-dimer PT 10.1 Seconds (9.4-12.1) 07/08/17 11:26 - Attending Attestation I have personally performed a face to face evaluation on this patient. I have reviewed and agree with the care plan. History and Exam by me shows:
--- NOTE | 2017-07-09 12:31 | Oncology Inp Consult Note ---
<Amy Oconnor L - Last Filed: 07/09/17 17:15> Date of Encounter: 07/09/17 Time of Encounter: 12:30 Assessment and Plan (1) Superficial venous thrombosis of left upper extremity Status: Acute Assessment and plan: She also has edema and erythema of her LUE, venous doppler does show an acute superficial venous thrombosis in the left cephalic vein. Given active GI bleed, history of multiple GI bleeds and fact that thrombosis is superficial, she is not a candidate for anticoagulation, nor is anticoagulation necessary for superficial clot She has been off coumadin as mentioned in HPI due to recurrent GIB. Will plan to continue to monitor LUE for resolution and likely repeat doppler on outpatient basis. Recommended warm compresses to LUE, discussed with primary RN (2) Breast cancer, left Status: Chronic Assessment and plan: Stage 2 T2 N0 M0 left breast invasive cancer, April 2006, lumpectomy 2.5 cm grade 3, ER/TN, HER2 negative. Completed four cycles of AC followed by the radiation, no hormonal manipulation. Last mammogram was July 2015, she has been unable to complete recently ordered mammogram due to her recent physical decline and she is not able to stand for mammo, patient has declined until after continued rehab at this time. Will continue to monitor on outpatient basis Qualifiers: Breast location: unspecified site of breast Estrogen receptor status: negative Patient sex: female Qualified Code(s): C50.912 - Malignant neoplasm of unspecified site of left female breast; Z17.1 - Estrogen receptor negative status [ER-]; Z17.1 - Estrogen receptor negative status [ER-] (3) GI bleed Status: Acute Assessment and plan: Reviewed GI recommendations. Hgb 6.8 on admission and 8.7 today s/p 2 units PRBC. Hgb this morning 8.7. Continue to monitor CBC and transfuse PRBC as needed. She is planned for colonoscopy and upper endocopy tomorrow with GI. Qualifiers: GI bleed type/associated pathology: unspecified gastrointestinal hemorrhage type Qualified Code(s): K92.2 - Gastrointestinal hemorrhage, unspecified (4) Lung nodule Status: Chronic Assessment and plan: CT chest showed contrast 05/08/2017 showed left lung nodule 2.5 x 1.9 cm close to hilum this is increased from 1.6 cm in January 2017. A PET scan around October 2016 and at that time the uptake was borderline SUV 2.8. As discussed in detail in HPI, patient declining PET at this time after multiple discussions. She has previously experienced a physical decline and wishes to focus on rehabilitation. If rehabilitation becomes an unreachable goal ,may consider hospice in future, patient has continued outpatient follow ups scheduled with Dr. Hines for continued monitoring and goals of care discussions. Please refer to Dr. Giron's attestation below for further details. - Data of Consult Patient: known to practice within the last 3 years Consult date: 07/09/17 Requesting Physician: Shauna Llanes MD Primary Care Provider: Francisco Melgar Jr - Consult Narrative Reason for consult: Left breast invasive cancer, April 2006. RUMA, GI bleed History of present illness: Ms. Higginbotham is a 76 year old female with oncologic history significant for Stage 2 T2 N0 M0 left breast invasive cancer, April 2006, lumpectomy 2.5 cm grade 3, ER/TN, HER2 negative. Completed four cycles of AC followed by the radiation, no hormonal manipulation. Last mammogram was July 2015, she has been unable to complete recently ordered mammogram due to her recent physical decline and she is not able to stand for mammo, patient has declined until after continued rehab at this time. She has recently undergone further workup for left lung nodule. CT chest showed contrast 05/08/2017 showed left lung nodule 2.5 x 1.9 cm close to hilum this is increased from 1.6 cm in January 2017. A PET scan around October 2016 and at that time the uptake was borderline SUV 2.8. She saw Dr. Pugh. He could not reach that spot with bronchoscopy for biopsy. She does have severe COPD and CT-guided biopsy may cause pneumothorax. We ordered PET scan, but it was not obtained since patient did not return to clinic, may consider SBRT after PET. At recent follow up with Dr. Hines, further discussion led to the decision that patient wishes to decline PET at this time as she wishes to focus on rehab, patient states she is too weak to have chemo treatment again. She is quite debilitated and may be a candidate for hospice in future is she continues to clinically fail. She was planned to return to clinic in 2 weeks for further assessment of her rehabilitation status and CBC monitoring. She does also have a history of slow GI bleeds due to angiodysplasia of the stomach and the colon treated with intermittent transfusions and IV injectafer along with EGD/Colonoscopy. Most recent EGD 06/03/2017 Dr. Zelaya: LA Grade A esophagitis, chronic gastritis, single nonbleeding AVM. Most recent Colonoscopy 06/04/2016 Dr. Rojo: Single nonbleeding AVM treated with APC, internal hemorrhoids. Recommended capsule endoscopy-not completed. She does have a history of A-fib and aorotic valve replacement, she has been off coumadin since 2012 due to issues with GI bleeding. She most recently received PRBC transfusion and Injectafer on 07/04/17 at [facility]. She recently presented to the ER on 07/08/2017 for hgb 6.8 found on outpatient lab work (this is following transfusion and Injectafer received on 07/04). She also has edema and erythema of her LUE, venous doppler does show an acute superficial venous thrombosis in the left cephalic vein. Past Med Surg Social Fam HX - Past Medical History Medical history: asthma, atrial fibrillation, cancer, cardiomyopathy, CHF, COPD , GERD, GI bleed, renal disease, thyroid disease, valvular heart disease Psychiatric history: anxiety, depression - Past Surgical History Surgical History: appendectomy, breast surgery, cancer surgery, heart valve replacement, hysterectomy, pacemaker/AICD - Social History Smoking Status: Former smoker Smokeless Tobacco Status: No Alcohol use: none Drug use: none - Family History Mother Family Member Ethnicity: Non- Living Status: Hx Family Cardiac Disorders: No Hx Family Respiratory Disorders: No Hx Family Cancer: Yes Hx Family GI Disorders: No Hx Family Endocrine Disorder: No Hx Family Neuromuscular Disorders: No Hx Family Neurologic Disorders: No Hx Family HEENT Disorders: No Hx Family Autoimmune Disorders: No Father Living Status: Hx Family Cardiac Disorders: Yes Hx Family Respiratory Disorders: No Hx Family Cancer: Yes Hx Family GI Disorders: No Hx Family Endocrine Disorder: No Hx Family Neuromuscular Disorders: No Hx Family Neurologic Disorders: No Hx Family HEENT Disorders: No Hx Family Autoimmune Disorders: No Medications and Allergies Allopurinol [Zyloprim 300 MG] 300 mg PO DAILY 01/12/16 [History] Calcium Carbonate [Calcium] 1,500 mg PO BID 04/22/16 [History] Oxygen 4 l NS AD 04/22/16 [History] Folic Acid 1 mg PO DAILY 05/28/16 [History] Ranitidine HCl [Acid Landscape Crew Leader] 150 mg PO BID 07/12/16 [History] Albuterol Sulfate [Ventolin Hfa] 1 - 2 puff IH Q4-6H PRN 10/14/16 [History] Umeclidinium [place]arr [Incruse Ellipta] 1 puff IH QPM 10/14/16 [History] Levothyroxine Sodium [Levoxyl] 75 mcg PO QAM 06/03/17 [History] Sacubitril/Valsartan 24/26 mg [Entresto 24 mg-26 mg Tablet] 1 tab PO BID [History] Omeprazole [PriLOSEC] 40 mg PO DAILY #30 cap 06/05/17 [Rx] Fluticasone/Vilanterol [Breo Ellipta 200-25 Mcg INH] 1 each IH BID 06/16/17 [ History] Ondansetron ODT [Zofran ODT] 4 mg SL Q8H PRN 06/16/17 [History] Amiodarone [Cordarone] 200 mg PO DAILY #0 06/19/17 [Rx] Furosemide [Lasix] 40 mg PO BID tablet 06/19/17 [Rx] ALPRAZolam [Xanax 0.25 MG Tablet] 0.25 mg PO HS 07/08/17 [History] Ciprofloxacin OPTH Soln [Ciloxan OPTH Soln] 2 drop BOTH EYES Q4H 07/08/17 [ History] Clindamycin HCl [Cleocin HCl] 300 mg PO Q8H 07/08/17 [History] FLUoxetine HCl [PROzac] 20 mg PO HS 07/08/17 [History] Ferrous Gluconate 324 mg PO 1200 07/08/17 [History] Hydrocodone/Acetaminophen [Hydrocodon-Acetaminophen 5-325] 1 each PO Q6H PRN [History] OxyCODONE/APAP 5/325 [Percocet 5/325 MG] 1 each PO Q6HR PRN 07/08/17 [History] Valacyclovir HCl [Valtrex] 1,000 mg PO DAILY 07/08/17 [History] Ropinirole HCl [Requip] 4 mg PO HS 07/09/17 [History] 3 Allergy/AdvReac Type Severity Reaction Status Date / Time Penicillins Allergy Hives Verified 07/08/17 13:31 Sulfa (Sulfonamide Allergy Hives Verified 07/08/17 13:31 Antibiotics) gabapentin AdvReac Hallucinati Verified 07/08/17 13:31 ng Oxycodone [From Percocet] AdvReac Hallucinati Verified 07/08/17 13:31 ng Oncology - Exam - Constitutional Vitals: Temp Pulse Resp BP Pulse Ox 97.3 F L 53 18 96/47 100 07/09/17 07:20 07/09/17 07:20 07/09/17 07:20 07/09/17 07:20 07/09/17 08:00 Oncology - Results Labs: Short CBC 07/09/17 Range/Units 02:55 WBC 4.3 (4.3-11.1) K/mcL Hgb 8.7 L (11.5-15.4) g/dL Hct 28.2 L (35.3-44.9) % Plt Count 69 L (140-400) K/mcL Neutrophils # 3.6 (1.6-8.9) K/mcL BMP 07/09/17 02:55 Sodium 137 Potassium 4.3 Chloride 97 L Carbon Dioxide 35 H BUN 49 H Creatinine 1.93 H Glucose 76 Calcium 8.5 L Cardiac Enzymes 07/08/17 07/09/17 Range/Units 19:30 02:55 Troponin I 0.03 0.03 (< 0.04) ng/mL Liver Function 07/09/17 Range/Units 02:55 Total Bilirubin 1.0 (0.3-1.0) mg/dL AST 15 (13-39) Units/L ALT 13 (7-52) Units/L Alkaline Phosphatase 73 (34-104) Units/L Albumin 3.0 L (3.5-5.7) g/dL Consult Discharge Plan - Plan Referrals: Francisco Melgar Jr [Primary Care Provider] - <Bk Giron - Last Filed: 07/10/17 14:56> Date of Encounter: 07/10/17 - Data of Consult Requesting Physician: Shauna Llanes MD Primary Care Provider: Francisco Melgar Jr - Consult Narrative History of present illness: Ms. Higginbotham is a 76 year old female Oncology - Exam - Constitutional Vitals: Temp Pulse Resp BP Pulse Ox 97.9 F 62 18 110/50 98 07/10/17 13:26 07/10/17 13:26 07/10/17 13:26 07/10/17 13:26 07/10/17 13:26 Oncology - Results Labs: Short CBC 07/10/17 Range/Units 06:04 WBC 4.9 (4.3-11.1) K/mcL Hgb 9.3 L (11.5-15.4) g/dL Hct 30.3 L (35.3-44.9) % Plt Count 82 L (140-400) K/mcL Neutrophils # 4.3 (1.6-8.9) K/mcL BMP 07/10/17 06:04 Sodium 137 Potassium 4.0 Chloride 96 L Carbon Dioxide 34 H BUN 37 H Creatinine 1.71 H Glucose 81 Calcium 8.7 - Attending Attestation Seen and examined patient and agree with assessment and plan. Patient with UGI bleed and superficial clot of the cephalic vein. Given that it is a superficial clot, I do dnot recommend anticoagulation but rather supportive care with hot compresses. Agree with EGD to evaluate UGI bleeding. ROS: all systems were reveiwed and were otherwise [id number] except as indicated in HPI: PE: Constitional: NAD HEENT: eoms-i Lymphatic: no LAD CVS: reg, nl s1 and s2, no m Lungs: CTA b/l GI: soft, ND, NT, +BS Vascular: no edema Neuro: AAO x 3.
--- NOTE | 2017-07-09 15:09 | Internal Med Progress Note ---
Date of Encounter: 07/09/17 Time of Encounter: 09:20 - Assessment and plan (1) GI bleed Current Visit: Yes Status: Acute Assessment and plan: AVMs noted on previous EGD and colonoscopy in May 2017. Hemoglobin currently stable. Continue to monitor closely. GI consult appreciated, plan for EGD and colonoscopy tomorrow. Qualifiers: GI bleed type/associated pathology: unspecified gastrointestinal hemorrhage type Qualified Code(s): K92.2 - Gastrointestinal hemorrhage, unspecified (2) Acute blood loss anemia Current Visit: Yes Status: Acute Assessment and plan: Baseline hemoglobin noted to be between 8-9. Presented with hemoglobin of 6.8, possibly from GI bleed, improved to 8.7 status post 2 units PRBC transfusion. Gastroenterology has been consulted, plan for possible EGD and colonoscopy tomorrow. (3) Superficial venous thrombosis of left upper extremity Current Visit: Yes Status: Acute Assessment and plan: Venous Doppler ultrasound of left upper extremity showed acute superficial venous thrombosis in the left cephalic vein. Continue supportive care with limb elevation, warm compresses, pain control with when necessary tramadol and Percocet. (4) Chronic respiratory failure Current Visit: Yes Status: Chronic Assessment and plan: On home oxygen, due to underlying COPD and CHF. Qualifiers: Respiratory failure complication: hypoxia Qualified Code(s): J96.11 - Chronic respiratory failure with hypoxia (5) Chronic systolic heart failure Current Visit: Yes Status: Chronic Assessment and plan: Noted to be on Lasix, Sacubitril/Valsartan at home; hold Lasix for now due to borderline hypotension. (6) Atrial fibrillation Current Visit: Yes Status: Chronic Assessment and plan: Currently rate controlled. Continue amiodarone. Not on anticoagulation due to issues with GI bleed. Qualifiers: Atrial fibrillation type: paroxysmal Qualified Code(s): I48.0 - Paroxysmal atrial fibrillation (7) Breast cancer, left Current Visit: Yes Status: Chronic Assessment and plan: History of invasive left breast cancer, treated with lumpectomy, chemotherapy radiation. Further details per oncology note. Qualifiers: Breast location: unspecified site of breast Estrogen receptor status: negative Patient sex: female Qualified Code(s): C50.912 - Malignant neoplasm of unspecified site of left female breast; Z17.1 - Estrogen receptor negative status [ER-]; Z17.1 - Estrogen receptor negative status [ER-] (8) COPD (chronic obstructive pulmonary disease) Current Visit: Yes Status: Chronic Assessment and plan: Not in acute exacerbation. Continue scheduled bronchodilator nebulization, supplemental oxygen, inhaled corticosteroids. Qualifiers: COPD type: chronic bronchitis Chronic bronchitis type: mucopurulent Qualified Code(s): J41.1 - Mucopurulent chronic bronchitis (9) Chronic kidney disease, stage 3 Current Visit: Yes Status: Chronic Assessment and plan: Serum creatinine consistent with baseline. Avoid nephrotoxic agents. (10) H/O aortic valve replacement Current Visit: Yes Status: Chronic Assessment and plan: Bioprosthetic valve per patient. Not on anticoagulation due to issues with GI bleed. (11) History of implantable cardiac defibrillator (ICD) Current Visit: Yes Status: Chronic (12) Hypothyroidism Current Visit: Yes Status: Chronic Qualifiers: Hypothyroidism type: unspecified Qualified Code(s): E03.9 - Hypothyroidism , unspecified (13) T2DM (type 2 diabetes mellitus) Current Visit: Yes Status: Chronic Assessment and plan: Blood sugars noted to be low normal. Continue Accu-Chek blood glucose monitoring. Diabetic diet. Qualifiers: Diabetes mellitus bed bug exterminator insulin use: without bed bug exterminator use Diabetes mellitus complication status: with kidney complications Diabetes mellitus complication detail: with chronic kidney disease Chronic kidney disease stage : stage 3 (moderate) Qualified Code(s): E11.22 - Type 2 diabetes mellitus with diabetic chronic kidney disease; N18.3 - Chronic kidney disease, stage 3 ( moderate); N18.3 - Chronic kidney disease, stage 3 (moderate) (14) Lung nodule Current Visit: Yes Status: Chronic Assessment and plan: Per Oncology- CT chest showed contrast 05/08/2017 showed left lung nodule 2.5 x 1.9 cm close to hilum this is increased from 1.6 cm in January 2017. A PET scan around October 2016 and at that time the uptake was borderline SUV 2.8. Pulmonology could not reach that spot with bronchoscopy for biopsy. She does have severe COPD and CT-guided biopsy may cause pneumothorax. We ordered PET scan, but it was not obtained since patient did not return to clinic, may consider SBRT after PET. At recent follow up with Dr. Hines, further discussion led to the decision that patient wishes to decline PET at this time as she wishes to focus on rehab, patient states she is too weak to have chemo treatment again. She is quite debilitated and may be a candidate for hospice in future is she continues to clinically fail. - Subjective Interval history: Reports left forearm and arm redness, swelling and pain. No chest pain, dizziness, shortness of breath. Unsure as to the reason for her admission. Also tends to think that she lives at home, although records indicate that she is from extended care facility. - Constitutional Vitals: Temp Pulse Resp BP Pulse Ox 97.3 F L 53 18 96/47 100 07/09/17 07:20 07/09/17 07:20 07/09/17 07:20 07/09/17 07:20 07/09/17 08:00 General appearance: Present: A&O X 2, answers questions appropriately - Respiratory Respiratory exam: Present: CTAB (Coarse breath sounds bilaterally, scattered rhonchi). Absent: accessory muscle use, rales, rhonchi, wheezes - Cardiovascular Cardiovascular exam: Present: RRR, +S1, +S2, systolic murmur. Absent: diastolic murmur, gallop, rubs - GI/Abdominal GI/Abdominal exam: Present: normal bowel sounds, soft, no peritoneal signs. Absent: distended, tenderness - Extremities Exam Extremities exam: Present: pedal edema, warm, radial pulses palpable and symmetrical. Absent: calf tenderness, cyanotic Additional comments: Left upper extremity-diffuse edema, tenderness and mild erythema in left hand and forearm - Neurological Exam Neurological exam: Present: CN II-XII intact, oriented X3, no focal deficits. Absent: pronater drift, facial droop, speech deficit Internal Medicine: Result - Labs CBC & Chem 7: 07/09/17 02:55 07/09/17 02:55 Labs: Short CBC 07/09/17 Range/Units 02:55 WBC 4.3 (4.3-11.1) K/mcL Hgb 8.7 L (11.5-15.4) g/dL Hct 28.2 L (35.3-44.9) % Plt Count 69 L (140-400) K/mcL Neutrophils # 3.6 (1.6-8.9) K/mcL BMP 07/09/17 02:55 Sodium 137 Potassium 4.3 Chloride 97 L Carbon Dioxide 35 H BUN 49 H Creatinine 1.93 H Glucose 76 Calcium 8.5 L Cardiac Enzymes 07/08/17 07/09/17 Range/Units 19:30 02:55 Troponin I 0.03 0.03 (< 0.04) ng/mL Liver Function 07/09/17 Range/Units 02:55 Total Bilirubin 1.0 (0.3-1.0) mg/dL AST 15 (13-39) Units/L ALT 13 (7-52) Units/L Alkaline Phosphatase 73 (34-104) Units/L Albumin 3.0 L (3.5-5.7) g/dL - ABG Interpretation ABG results: PT/INR, D-dimer PT 10.1 Seconds (9.4-12.1) 07/08/17 11:26 - VTE Documentation of Mechanical Device: Intermittent pneumatic compression device Consult Discharge Plan - Plan Referrals: Francisco Melgar Jr [Primary Care Provider] -
[2017-07-09] MEDS ORDERED: Furosemide 40 MG TABLET PO SCH (15:13)
[2017-07-09] MEDS: *HR* OxyCODONE/APAP 5/325 TABLET PO PRN (16:20)
[2017-07-09] MEDS: Ipratropium/Albuterol Neb 3 ML IH SCH ×2 (16:30→23:00)
[2017-07-09] MEDS ORDERED: SODIUM CHLORIDE/NAHCO3/KCL/PEG 4,000 ML SOLN.RECON PO ONE (17:00)
--- NOTE | 2017-07-09 19:37 | Electrocardiograph Report ---
[address] [address] Test Date: 2017-07-08 Pat Name: Janay Higginbotham Department: 103 Room: 3A22 Gender: F [employer]: : 1940 Requested By: Felix Robison Order Number: [id number] Reading MD: Leonard Sánchez MD Measurements Intervals [place] Rate: 49 P: 3 AL: 169 QRS: -9 QRSD: 134 T: 0 QT: 454 QTc: 425 Interpretive Statements SINUS BRADYCARDIA LEFT BUNDLE BRANCH BLOCK Electronically Signed On 07-09-2017 19:36:05 EDT by Leonard Sánchez MD
[2017-07-10] MEDS: Ipratropium/Albuterol Neb 3 ML IH SCH ×4 (04:18→22:00)
[2017-07-10 06:15] LABS: Eosinophils % 0.6 %; Hemoglobin 9.3 g/dL (11.5-15.4); Immature Granulocytes % 0.8 % (0-4); Mean Platelet Volume 11.1 fL (9.4-12.4); Red Cell Distribution Width 17.2 % (11.5-14.5)
[2017-07-10 06:16] LABS: Hematocrit 30.3 % (35.3-44.9); Lymphocytes # 0.3 K/mcL (0.6-4.6); Lymphocytes % 5.4 %; Mean Corpuscular HGB Conc 30.7 g/dL (31.6-35.5); Mean Corpuscular Hemoglobin 28.3 pg (28.0-33.3); Mean Corpuscular Volume 92.1 fL (83.0-100.0); Monocytes # 0.3 K/mcL (0.0-1.3); Monocytes % 6.4 %; Red Blood Count 3.29 M/mcL (3.82-4.97); Segmented Neutrophils % 86.8 %
[2017-07-10 06:18] LABS: Neutrophils # 4.3 K/mcL (1.6-8.9); Platelet Count 82 K/mcL (140-400)
[2017-07-10 06:33] LABS: Calcium 8.7 mg/dL (8.6-10.3)
[2017-07-10] MEDS: Insulin LISPRO 300 UNITS/3 ML VIAL SQ SCH ×4 (09:51→20:43)
[2017-07-10] MEDS: SACUBITRIL/VALSARTAN 24/26 MG TABLET PO SCH ×2 (09:52→20:34)
[2017-07-10] MEDS: Famotidine 20 MG TABLET PO SCH ×2 (09:52→20:34)
[2017-07-10] MEDS: FLUoxetine 20 MG CAPSULE PO SCH (09:52)
[2017-07-10] MEDS: Furosemide 40 MG TABLET PO SCH ×2 (09:53→17:59)
[2017-07-10] MEDS: Folic Acid 1 MG TABLET PO SCH (09:53)
[2017-07-10] MEDS: *HR* Amiodarone 200 MG TABLET PO SCH (09:53)
--- NOTE | 2017-07-10 11:48 | Anesthesia Evaluation PreOp ---
Date of Encounter: 07/10/17 Time of Encounter: 11:46 - Past History Planned Operation: Push enteroscopy, Colonoscopy Cardiac History: CHF, Arrhythmia (Paroxysmal AF), Cardiac Surgery ( Bioprosthetic AV replacement 2012), Pacemaker/ICD, Other (Cardiomyopathy) Pulmonary History: Former smoker, Asthma, COPD (on 4L Home O2) CONVICT GUARD History: Other (A/D) Other Medical History: Renal (Stage III CRD), Diabetes Type II, Thyroid ( ypothyroid), GERD Anesthesia History: No Prior Anesthetic Complications, Past Anesthesia (Appy, Mastectomy, Cancer surgery, AV replacement, Hyster, Pacemaker/AICD, EGD) : No Alcohol Use: none Drug use: none Medications and Allergies Allopurinol [Zyloprim 300 MG] 300 mg PO DAILY 01/12/16 [History] Calcium Carbonate [Calcium] 1,500 mg PO BID 04/22/16 [History] Oxygen 4 l NS AD 04/22/16 [History] Folic Acid 1 mg PO DAILY 05/28/16 [History] Ranitidine HCl [Acid Rubber Off] 150 mg PO BID 07/12/16 [History] Albuterol Sulfate [Ventolin Hfa] 1 - 2 puff IH Q4-6H PRN 10/14/16 [History] Umeclidinium [place] [Incruse Ellipta] 1 puff IH QPM 10/14/16 [History] Levothyroxine Sodium [Levoxyl] 75 mcg PO QAM 06/03/17 [History] Sacubitril/Valsartan 24/26 mg [Entresto 24 mg-26 mg Tablet] 1 tab PO BID [History] Omeprazole [PriLOSEC] 40 mg PO DAILY #30 cap 06/05/17 [Rx] Fluticasone/Vilanterol [Breo Ellipta 200-25 Mcg INH] 1 each IH BID 06/16/17 [ History] Ondansetron ODT [Zofran ODT] 4 mg SL Q8H PRN 06/16/17 [History] Amiodarone [Cordarone] 200 mg PO DAILY #0 06/19/17 [Rx] Furosemide [Lasix] 40 mg PO BID tablet 06/19/17 [Rx] ALPRAZolam [Xanax 0.25 MG Tablet] 0.25 mg PO HS 07/08/17 [History] Ciprofloxacin OPTH Soln [Ciloxan OPTH Soln] 2 drop BOTH EYES Q4H 07/08/17 [ History] Clindamycin HCl [Cleocin HCl] 300 mg PO Q8H 07/08/17 [History] FLUoxetine HCl [PROzac] 20 mg PO HS 07/08/17 [History] Ferrous Gluconate 324 mg PO 1200 07/08/17 [History] Hydrocodone/Acetaminophen [Hydrocodon-Acetaminophen 5-325] 1 each PO Q6H PRN [History] OxyCODONE/APAP 5/325 [Percocet 5/325 MG] 1 each PO Q6HR PRN 07/08/17 [History] Valacyclovir HCl [Valtrex] 1,000 mg PO DAILY 07/08/17 [History] Ropinirole HCl [Requip] 4 mg PO HS 07/09/17 [History] 3 Allergy/AdvReac Type Severity Reaction Status Date / Time Penicillins Allergy Hives Verified 07/08/17 13:31 Sulfa (Sulfonamide Allergy Hives Verified 07/08/17 13:31 Antibiotics) gabapentin AdvReac Hallucinati Verified 07/08/17 13:31 ng Oxycodone [From Percocet] AdvReac Hallucinati Verified 07/08/17 13:31 ng - Meds/Allergy Pre-op Review Medications Reviewed: Yes Allergies Reviewed: Yes Beta Blockers on Current Med List: No Anesthesia Results - Labs 07/10/17 06:04 07/10/17 06:04 Echocardiogram Name: Janay Higginbotham Date of Study: 04/03/2017 Impressions: LVEF 45%. Mild global LV systolic dysfunction. Atypical septal motion consistent with post-operative status. Mildly dilated left ventricle. Diastolic dysfunction with elevated filling pressures. Dilated RV with normal function. Severe bi-atrial enlargement. S/p mechanical aortic valve which is not well visualized. Appears to demonstrate normal function by Doppler. Moderate-severe mitral regurgitation. Mild-moderate tricuspid regurgitation. Mild pulmonary hypertension. - Imaging EKG: report reviewed (SINUS BRADYCARDIA LEFT BUNDLE BRANCH BLOCK) Anesthesia Exam Vital Signs/O2 Sat, Most Current Temp Pulse Resp BP Pulse Ox 97.6 F 60 16 107/50 98 07/10/17 11:25 07/10/17 11:25 07/10/17 11:25 07/10/17 11:25 07/10/17 11:25 NPO (# of Hours): > 8 hrs Pain Scale: 0 Pain Scale Used: Numeric (1 - 10) - HEENT Pupil (Motor): Pupils equal, EOMI Mallampati: III Teeth: Edentulous Oral Opening: Greater than 3 - CONVICT GUARD LOC: Oriented CONVICT GUARD Motor: Normal RUE, Normal LUE, Normal RLE, Normal LLE, Normal Face CONVICT GUARD Sensory: Normal: RUE, LUE, RLE, LLE, Face - Cardiac Rhythm: Regular Murmur: None JVD: No Carotid Bruit: No - Pulmonary Breath Sounds: bilateral Clear Respiratory Effort: Symmetrical Anesthesia Assess/Plan ASA Score: 3 Modified [place] Scale for Level of Consciousness: Cooperative, oriented, and tranquil Anesthetic Plan: General Autologous Blood: Yes Monitoring Plan: Standard Monitors Recovery Plan: PACU
[2017-07-10] MEDS ORDERED: Propofol 500 MG/50 ML INFUS..BTL ONE (12:33)
[2017-07-10] MEDS ORDERED: *HR* Etomidate 40 MG/20 ML VIAL IVP ONE (12:38)
[2017-07-10] MEDS ORDERED: Lidocaine -MPF 2% 2 ML VIAL ONE (12:40)
[2017-07-10] MEDS ORDERED: EPHEDrine 50 MG/ML VIAL ONE (12:54)
[2017-07-10] MEDS ORDERED: Albuterol 2.5 MG/3 ML NEBULIZER IH PRN (14:21)
--- NOTE | 2017-07-10 15:29 | Internal Med Progress Note ---
Date of Encounter: 07/10/17 Time of Encounter: 10:00 - Assessment and plan (1) GI bleed Current Visit: Yes Status: Acute Assessment and plan: AVMs noted on previous EGD and colonoscopy in May 2017. Hemoglobin currently stable, at 9.3. Continue to monitor closely. GI consult appreciated, plan for EGD and colonoscopy today. Blood cultures negative. Qualifiers: GI bleed type/associated pathology: unspecified gastrointestinal hemorrhage type Qualified Code(s): K92.2 - Gastrointestinal hemorrhage, unspecified (2) Acute blood loss anemia Current Visit: Yes Status: Acute Assessment and plan: Baseline hemoglobin noted to be between 8-9, currently at 9.3. status post 2 units PRBC transfusion. Gastroenterology has been consulted, plan for possible EGD and colonoscopy today. Serum iron profile shows slightly decreased iron with elevated ferritin, likely anemia of chronic disease due to chronic kidney disease. Continue ferrous sulfate supplements. (3) Superficial venous thrombosis of left upper extremity Current Visit: Yes Status: Acute Assessment and plan: Venous Doppler ultrasound of left upper extremity showed acute superficial venous thrombosis in the left cephalic vein. Continue supportive care with limb elevation, warm compresses, pain control with when necessary tramadol and Percocet. Oncology consult appreciated, agree with current management, plan for repeat Doppler ultrasound as an outpatient. (4) Chronic respiratory failure Current Visit: Yes Status: Chronic Assessment and plan: On home oxygen, due to underlying COPD and CHF. Qualifiers: Respiratory failure complication: hypoxia Qualified Code(s): J96.11 - Chronic respiratory failure with hypoxia (5) Chronic systolic heart failure Current Visit: Yes Status: Chronic Assessment and plan: Noted to be on Lasix, Sacubitril/Valsartan at home; continue for now; (6) Atrial fibrillation Current Visit: Yes Status: Chronic Assessment and plan: Currently rate controlled. Continue amiodarone. Not on anticoagulation due to issues with GI bleed. Qualifiers: Atrial fibrillation type: paroxysmal Qualified Code(s): I48.0 - Paroxysmal atrial fibrillation (7) Breast cancer, left Current Visit: Yes Status: Chronic Assessment and plan: History of invasive left breast cancer, treated with lumpectomy, chemotherapy radiation. Further details per oncology note. Qualifiers: Breast location: unspecified site of breast Estrogen receptor status: negative Patient sex: female Qualified Code(s): C50.912 - Malignant neoplasm of unspecified site of left female breast; Z17.1 - Estrogen receptor negative status [ER-]; Z17.1 - Estrogen receptor negative status [ER-] (8) COPD (chronic obstructive pulmonary disease) Current Visit: Yes Status: Chronic Assessment and plan: Not in acute exacerbation. Continue scheduled bronchodilator nebulization, supplemental oxygen, inhaled corticosteroids. Qualifiers: COPD type: chronic bronchitis Chronic bronchitis type: mucopurulent Qualified Code(s): J41.1 - Mucopurulent chronic bronchitis (9) Chronic kidney disease, stage 3 Current Visit: Yes Status: Chronic Assessment and plan: Serum creatinine consistent with baseline. Avoid nephrotoxic agents. (10) H/O aortic valve replacement Current Visit: Yes Status: Chronic (11) History of implantable cardiac defibrillator (ICD) Current Visit: Yes Status: Chronic (12) Hypothyroidism Current Visit: Yes Status: Chronic Qualifiers: Hypothyroidism type: unspecified Qualified Code(s): E03.9 - Hypothyroidism , unspecified (13) T2DM (type 2 diabetes mellitus) Current Visit: Yes Status: Chronic Assessment and plan: Blood sugars noted to be low normal. Continue Accu-Chek blood glucose monitoring. Diabetic diet. Qualifiers: Diabetes mellitus manager wireless insulin use: without nursing home use Diabetes mellitus complication status: with kidney complications Diabetes mellitus complication detail: with chronic kidney disease Chronic kidney disease stage : stage 3 (moderate) Qualified Code(s): E11.22 - Type 2 diabetes mellitus with diabetic chronic kidney disease; N18.3 - Chronic kidney disease, stage 3 ( moderate); N18.3 - Chronic kidney disease, stage 3 (moderate) (14) Lung nodule Current Visit: Yes Status: Chronic Assessment and plan: Per Oncology- CT chest showed contrast 05/08/2017 showed left lung nodule 2.5 x 1.9 cm close to hilum this is increased from 1.6 cm in January 2017. A PET scan around October 2016 and at that time the uptake was borderline SUV 2.8. Pulmonology could not reach that spot with bronchoscopy for biopsy. She does have severe COPD and CT- guided biopsy may cause pneumothorax. We ordered PET scan, but it was not obtained since patient did not return to clinic, may consider SBRT after PET. At recent follow up with Dr. Hines, further discussion led to the decision that patient wishes to decline PET at this time as she wishes to focus on rehab, patient states she is too weak to have chemo treatment again. She is quite debilitated and may be a candidate for hospice in future is she continues to clinically fail. - Subjective Interval history: Persistent but improving left arm and hand pain; no chest or abdominal pain, dyspnea; awaiting EGD and colonoscopy today; - Constitutional Vitals: Temp Pulse Resp BP Pulse Ox 97.9 F 62 18 110/50 98 07/10/17 13:26 07/10/17 13:26 07/10/17 13:26 07/10/17 13:07/10/17 13:26 General appearance: Present: A&O X 2, answers questions appropriately - Respiratory Respiratory exam: Present: CTAB. Absent: accessory muscle use, rales, rhonchi, wheezes - Cardiovascular Cardiovascular exam: Present: RRR, +S1, +S2, systolic murmur. Absent: diastolic murmur, gallop, rubs - GI/Abdominal GI/Abdominal exam: Present: normal bowel sounds, soft, no peritoneal signs. Absent: distended, tenderness - Extremities Exam Extremities exam: Present: pedal edema, warm, radial pulses palpable and symmetrical. Absent: calf tenderness, cyanotic Internal Medicine: Result - Labs CBC & Chem 7: 07/10/17 06:04 07/10/17 06:04 Labs: Short CBC 07/10/17 Range/Units 06:04 WBC 4.9 (4.3-11.1) K/mcL Hgb 9.3 L (11.5-15.4) g/dL Hct 30.3 L (35.3-44.9) % Plt Count 82 L (140-400) K/mcL Neutrophils # 4.3 (1.6-8.9) K/mcL BMP 07/10/17 06:04 Sodium 137 Potassium 4.0 Chloride 96 L Carbon Dioxide 34 H BUN 37 H Creatinine 1.71 H Glucose 81 Calcium 8.7 - ABG Interpretation ABG results: PT/INR, D-dimer PT 10.1 Seconds (9.4-12.1) 07/08/17 11:26 - VTE Documentation of Mechanical Device: Intermittent pneumatic compression device Consult Discharge Plan - Plan Referrals: Francisco Melgar Jr [Primary Care Provider] -
[2017-07-11] MEDS: *HR* OxyCODONE/APAP 5/325 TABLET PO PRN ×2 (04:30→14:26)
[2017-07-11] MEDS: Ipratropium/Albuterol Neb 3 ML IH SCH ×2 (04:46→10:44)
[2017-07-11 05:17] LABS: Basophils % 0.2 %; Immature Granulocytes % 1.5 % (0-4); Red Cell Distribution Width 17.2 % (11.5-14.5); Segmented Neutrophils % 83.8 %
[2017-07-11 05:18] LABS: Eosinophils # 0.1 K/mcL (0.0-0.6); Hematocrit 28.5 % (35.3-44.9); Immature Platelets 5.5 % (1.1-6.1); Lymphocytes # 0.3 K/mcL (0.6-4.6); Lymphocytes % 4.8 %; Mean Corpuscular HGB Conc 31.6 g/dL (31.6-35.5); Mean Corpuscular Hemoglobin 28.7 pg (28.0-33.3); Mean Corpuscular Volume 90.8 fL (83.0-100.0); Mean Platelet Volume 11.8 fL (9.4-12.4); Monocytes # 0.5 K/mcL (0.0-1.3); Monocytes % 8.7 %; Neutrophils # 5.1 K/mcL (1.6-8.9); Nucleated Red Blood Cells 1.3 /100 WBC (0); Red Blood Count 3.14 M/mcL (3.82-4.97)
[2017-07-11 05:34] LABS: Platelet Count 83 K/mcL (140-400)
[2017-07-11] MEDS: Furosemide 40 MG TABLET PO SCH (07:48)
[2017-07-11] MEDS: Famotidine 20 MG TABLET PO SCH (08:02)
[2017-07-11] MEDS: *HR* Amiodarone 200 MG TABLET PO SCH (08:02)
[2017-07-11] MEDS: SACUBITRIL/VALSARTAN 24/26 MG TABLET PO SCH (08:02)
[2017-07-11] MEDS: FLUoxetine 20 MG CAPSULE PO SCH (08:02)
[2017-07-11] MEDS: Folic Acid 1 MG TABLET PO SCH (08:02)
[2017-07-11] MEDS: Insulin LISPRO 300 UNITS/3 ML VIAL SQ SCH ×2 (08:05→11:11)
[2017-07-11 10:13] VITALS: BP 99/51
--- NOTE | 2017-07-11 10:58 | Discharge Summary ---
- NOTES TO OUTPATIENT PROVIDER Notes to Outpatient Provider: F/up biopsies from EGD/Colonoscopy Orders not resulted at time of discharge: Pending orders 07/10/17 14:29 Surgical Pathology [PTH] Routine Date of Encounter: 07/11/17 Time of Encounter: 10:56 - Discharge Diagnosis (1) GI bleed Priority: Primary Status: Acute Qualifiers: GI bleed type/associated pathology: angiodysplasia of stomach and duodenum Qualified Code(s): K31.811 - Angiodysplasia of stomach and duodenum with bleeding (2) Acute blood loss anemia Priority: Primary Status: Acute (3) Superficial venous thrombosis of left upper extremity Priority: Primary Status: Acute (4) Chronic respiratory failure Priority: Secondary Status: Chronic Qualifiers: Respiratory failure complication: hypoxia Qualified Code(s): J96.11 - Chronic respiratory failure with hypoxia (5) Chronic systolic heart failure Priority: Secondary Status: Chronic (6) Atrial fibrillation Priority: Secondary Status: Chronic Qualifiers: Atrial fibrillation type: paroxysmal Qualified Code(s): I48.0 - Paroxysmal atrial fibrillation (7) Breast cancer, left Priority: Secondary Status: Chronic Qualifiers: Breast location: unspecified site of breast Estrogen receptor status: negative Patient sex: female Qualified Code(s): C50.912 - Malignant neoplasm of unspecified site of left female breast; Z17.1 - Estrogen receptor negative status [ER-]; Z17.1 - Estrogen receptor negative status [ER-] (8) COPD (chronic obstructive pulmonary disease) Priority: Secondary Status: Chronic Qualifiers: COPD type: chronic bronchitis Chronic bronchitis type: mucopurulent Qualified Code(s): J41.1 - Mucopurulent chronic bronchitis (9) Chronic kidney disease, stage 3 Priority: Secondary Status: Chronic (10) H/O aortic valve replacement Priority: Secondary Status: Chronic (11) History of implantable cardiac defibrillator (ICD) Priority: Secondary Status: Chronic (12) Hypothyroidism Priority: Secondary Status: Chronic Qualifiers: Hypothyroidism type: unspecified Qualified Code(s): E03.9 - Hypothyroidism , unspecified (13) T2DM (type 2 diabetes mellitus) Priority: Secondary Status: Chronic Qualifiers: Diabetes mellitus salvage determiner insulin use: without retirement use Diabetes mellitus complication status: with kidney complications Diabetes mellitus complication detail: with chronic kidney disease Chronic kidney disease stage : stage 3 (moderate) Qualified Code(s): E11.22 - Type 2 diabetes mellitus with diabetic chronic kidney disease; N18.3 - Chronic kidney disease, stage 3 ( moderate); N18.3 - Chronic kidney disease, stage 3 (moderate) (14) Lung nodule Priority: Secondary Status: Chronic Hospital course: Ms. Higginbotham is a 76 year old female with multiple medical problems as mentioned above, who was sent from oncology clinic due to abnormal labs. Hemoglobin was noted to be 6.8. Patient also reported pain, redness and swelling in left hand and forearm. Venous Doppler of left upper extremity revealed superficial venous thrombosis and cephalic vein, for which she received supportive care with warm compresses, pain control and extremity elevation. Oncology was consulted for anemia, left breast cancer, left lung nodule; recommend outpatient followup, as mentioned in their detailed notes. Gastroenterology was consulted and patient underwent EGD and colonoscopy. EGD showed severe esophagitis with no bleeding, nonbleeding angiectasia in duodenum and jejunum status post APC. Colonoscopy showed 2 nonbleeding polyps in the descending colon. Biopsies are pending. She is being started on twice-daily PPI and Carafate. She received 2 units PRBC transfusion during this admission and hemoglobin is currently stable. She tolerates oral diet. Blood pressure has been low normal during her hospitalization but she can tolerate Entresto and Lasix well. She is otherwise medically stable for discharge back to [facility]. Discharge discussed with: patient - Time Spent with Patient Total time spent providing and/or coordinating discharge services: Greater than 30 minutes (50 min) - Discharge Medications Prescriptions: OxyCODONE/APAP 5/325 [Percocet 5/325 MG] 1 each PO Q6HR PRN 5 Days #10 tablet PRN Reason: Severe Pain ALPRAZolam [Xanax 0.25 MG Tablet] 0.25 mg PO HS 5 Days #5 tablet Hydrocodone/Acetaminophen [Hydrocodon-Acetaminophen 5-325] 1 each PO Q6H PRN 5 Days #10 tablet PRN Reason: Moderate Pain Home Medications: Allopurinol [Zyloprim 300 MG] 300 mg PO DAILY 01/12/16 [History] Calcium Carbonate [Calcium] 1,500 mg PO BID 04/22/16 [History] Oxygen 4 l NS AD 04/22/16 [History] Folic Acid 1 mg PO DAILY 05/28/16 [History] Ranitidine HCl [Acid Supervisor Microwave] 150 mg PO BID 07/12/16 [History] Albuterol Sulfate [Ventolin Hfa] 1 - 2 puff IH Q4-6H PRN 10/14/16 [History] Umeclidinium [place] [Incruse Ellipta] 1 puff IH QPM 10/14/16 [History] Levothyroxine Sodium [Levoxyl] 75 mcg PO QAM 06/03/17 [History] Sacubitril/Valsartan 24/26 mg [Entresto 24 mg-26 mg Tablet] 1 tab PO BID [History] Fluticasone/Vilanterol [Breo Ellipta 200-25 Mcg INH] 1 each IH BID 06/16/17 [ History] Ondansetron ODT [Zofran ODT] 4 mg SL Q8H PRN 06/16/17 [History] Amiodarone [Cordarone] 200 mg PO DAILY #0 06/19/17 [Rx] Furosemide [Lasix] 40 mg PO BID tablet 06/19/17 [Rx] Ciprofloxacin OPTH Soln [Ciloxan OPTH Soln] 2 drop BOTH EYES Q4H 07/08/17 [ History] FLUoxetine HCl [Prozac] 20 mg PO HS 07/08/17 [History] Ferrous Gluconate 324 mg PO 1200 07/08/17 [History] Ropinirole HCl [Requip] 4 mg PO HS 07/09/17 [History] ALPRAZolam [Xanax 0.25 MG Tablet] 0.25 mg PO HS 5 Days #5 tablet 07/11/17 [Rx] Hydrocodone/Acetaminophen [Hydrocodon-Acetaminophen 5-325] 1 each PO Q6H PRN 5 Days #10 tablet 07/11/17 [Rx] Omeprazole [PriLOSEC] 40 mg PO BID capsule. 07/11/17 [Rx] OxyCODONE/APAP 5/325 [Percocet 5/325 MG] 1 each PO Q6HR PRN 5 Days #10 tablet [Rx] Sucralfate [Carafate] 1 gm PO QIDAC tablet 07/11/17 [Rx] Allergies/Adverse Reactions: 3 Allergy/AdvReac Type Severity Reaction Status Date / Time Penicillins Allergy Hives Verified 07/08/17 13:31 Sulfa (Sulfonamide Allergy Hives Verified 07/08/17 13:31 Antibiotics) gabapentin AdvReac Hallucinati Verified 07/08/17 13:31 ng Oxycodone [From Percocet] AdvReac Hallucinati Verified 07/08/17 13:31 ng Date of admission: 07/08/17 14:15 Primary care physician: Francisco Melgar Jr Consults: 07/09/17 08:45 Consult to Client Hr Manager [CONS] Routine Reason for SW Consult: DC planning: Pt from [facility] ([facility] - bed hold) Discharging clinician: Shauna Llanes Anticipated date of discharge: 07/11/17 - Constitutional Vitals: Temp Pulse Resp BP Pulse Ox 98.8 F 59 18 99/51 96 07/11/17 10:10 07/11/17 10:10 07/11/17 10:10 07/11/17 10:10 07/11/17 10:10 General appearance: Present: A&O X 2, obese, answers questions appropriately - Respiratory Respiratory exam: Present: CTAB (coarse breath sounds B/L). Absent: accessory muscle use, rales, rhonchi, wheezes - Patient Status Disposition: Transfer SNF Condition: Fair Functional capacity at discharge: bed bound Overall status at discharge: patient is progressing back to baseline - Discharge Instructions Instructions: Deep Venous Thrombosis (DC), Iron Deficiency Anemia (DC) Follow Up With: Francisco Melgar Jr [Primary Care Provider] - Additional Instructions: F/up with PCP in 1-2 weeks F/up with GI in 3-4 weeks for capsule endoscopy - Diet and Activity Activity: as per physical therapy, wear oxygen at all times Diet: diabetic diet, low fat, low cholesterol, low salt diet, other (renal diet) - VTE Documentation of Mechanical Device: Intermittent pneumatic compression device
--- NOTE | 2017-07-11 11:15 | Physician Discharge Referral ---
ExtendedCare Referral Info Transfer To: [facility] Provider in Charge: Shauna Llanes Provider in Charge after Transfer: PCP Institutional Level of Care: Skilled - Diagnosis (1) GI bleed Priority: Primary Status: Acute (2) Acute blood loss anemia Priority: Primary Status: Acute (3) Superficial venous thrombosis of left upper extremity Priority: Primary Status: Acute (4) Chronic respiratory failure Priority: Secondary Status: Chronic (5) Chronic systolic heart failure Priority: Secondary Status: Chronic (6) Atrial fibrillation Priority: Secondary Status: Chronic (7) Breast cancer, left Priority: Secondary Status: Chronic (8) COPD (chronic obstructive pulmonary disease) Priority: Secondary Status: Chronic (9) Chronic kidney disease, stage 3 Priority: Secondary Status: Chronic (10) H/O aortic valve replacement Priority: Secondary Status: Chronic (11) History of implantable cardiac defibrillator (ICD) Priority: Secondary Status: Chronic (12) Hypothyroidism Priority: Secondary Status: Chronic (13) T2DM (type 2 diabetes mellitus) Priority: Secondary Status: Chronic (14) Lung nodule Priority: Secondary Status: Chronic Expected Duration of Placement: 3 weeks Prognosis: Fair Aware of Diagnosis: Patient Aware of Prognosis: Patient - Transfer Medications Prescriptions: OxyCODONE/APAP 5/325 [Percocet 5/325 MG] 1 each PO Q6HR PRN 5 Days #10 tablet PRN Reason: Severe Pain ALPRAZolam [Xanax 0.25 MG Tablet] 0.25 mg PO HS 5 Days #5 tablet Hydrocodone/Acetaminophen [Hydrocodon-Acetaminophen 5-325] 1 each PO Q6H PRN 5 Days #10 tablet PRN Reason: Moderate Pain Home Medications: Allopurinol [Zyloprim 300 MG] 300 mg PO DAILY 01/12/16 [History] Calcium Carbonate [Calcium] 1,500 mg PO BID 04/22/16 [History] Oxygen 4 l NS AD 04/22/16 [History] Folic Acid 1 mg PO DAILY 05/28/16 [History] Ranitidine HCl [Acid Geophysics Teacher] 150 mg PO BID 07/12/16 [History] Albuterol Sulfate [Ventolin Hfa] 1 - 2 puff IH Q4-6H PRN 10/14/16 [History] Umeclidinium [place] [Incruse Ellipta] 1 puff IH QPM 10/14/16 [History] Levothyroxine Sodium [Levoxyl] 75 mcg PO QAM 06/03/17 [History] Sacubitril/Valsartan 24/26 mg [Entresto 24 mg-26 mg Tablet] 1 tab PO BID [History] Fluticasone/Vilanterol [Breo Ellipta 200-25 Mcg INH] 1 each IH BID 06/16/17 [ History] Ondansetron ODT [Zofran ODT] 4 mg SL Q8H PRN 06/16/17 [History] Amiodarone [Cordarone] 200 mg PO DAILY #0 06/19/17 [Rx] Furosemide [Lasix] 40 mg PO BID tablet 06/19/17 [Rx] Ciprofloxacin OPTH Soln [Ciloxan OPTH Soln] 2 drop BOTH EYES Q4H 07/08/17 [ History] FLUoxetine HCl [Prozac] 20 mg PO HS 07/08/17 [History] Ferrous Gluconate 324 mg PO 1200 07/08/17 [History] Ropinirole HCl [Requip] 4 mg PO HS 07/09/17 [History] ALPRAZolam [Xanax 0.25 MG Tablet] 0.25 mg PO HS 5 Days #5 tablet 07/11/17 [Rx] Hydrocodone/Acetaminophen [Hydrocodon-Acetaminophen 5-325] 1 each PO Q6H PRN 5 Days #10 tablet 07/11/17 [Rx] Omeprazole [PriLOSEC] 40 mg PO BID capsule. 07/11/17 [Rx] OxyCODONE/APAP 5/325 [Percocet 5/325 MG] 1 each PO Q6HR PRN 5 Days #10 tablet [Rx] Sucralfate [Carafate] 1 gm PO QIDAC tablet 07/11/17 [Rx] Allergies/Adverse Reactions: 3 Allergy/AdvReac Type Severity Reaction Status Date / Time Penicillins Allergy Hives Verified 07/08/17 13:31 Sulfa (Sulfonamide Allergy Hives Verified 07/08/17 13:31 Antibiotics) gabapentin AdvReac Hallucinati Verified 07/08/17 13:31 ng Oxycodone [From Percocet] AdvReac Hallucinati Verified 07/08/17 13:31 ng - Respiratory Orders Oxygen / L per min (2L/min via NC) Smoking Cessation: Smoking cessation has been advised. For more information, call the [place] Tobacco Quit Line at 4-615-UWDT-NOW. - Advance Directives Code Status: Full Code - Mobility Orders Ambulate - Rehabiliation Orders Rehab Potential: Poor Rehab Orders: ROM Exercises, Evaluation for Physical Therapy, Evaluation for Occupational Therapy - Diet Orders No Concentrated Sweets (diabetic), Renal, Cardiac CERTIFICATION: I certify that the transfer of the above named patient to an Extended Care Facility is necessary for the continuing treatment of the diagnosis listed. The above information is true and accurate reflection of patient's current condition. Confidential - Redisclosure prohibited without a patient's written consent.
[2017-07-11] MEDS ORDERED: Sucralfate 1 GM TABLET PO SCH (11:30)
== END 2017-07-11 15:55 | DRG 378 ==
LOC: EMEROO 11:10 → 3ANU 14:15
PROVIDERS: ADMIT Internal Medicine; ATTEND Internal Medicine

== ENCOUNTER 2017-07-22 10:46 | Inpatient (IN) ==
[2017-07-22] MEDS ORDERED: 0.9 % Sodium Chloride 1,000 ML IVC ONE (11:05)
--- NOTE | 2017-07-22 11:50 | Emergency Department Note ---
Disposition Clinical Impression: Symptomatic anemia, Acute blood loss anemia, Hypotension due to blood loss GI bleed Qualifiers: GI bleed type/associated pathology: angiodysplasia of stomach and duodenum Qualified Code(s): K31.811 - Angiodysplasia of stomach and duodenum with bleeding Disposition: Admitted As Inpatient Condition: Fair General Adult HPI - General Chief complaint: ED Recheck/Abnormal Lab/Rx Stated complaint: low Hgb Time Seen by Provider: 07/22/17 11:05 Source: EMS Limitations: physical limitation Nursing Notes Reviewed: Yes Vital Signs Reviewed: Yes - History of Present Illness HPI Narrative: Chief complaint is low hemoglobin. This is a 76-year-old female who comes in today with a low hemoglobin reported from oncology services that was drawn this morning. She spelling had a history of GI bleed in the past as well as anemia from cancer. She is not currently getting treatment. Her blood pressure is low here she said she feels tired but she does not have any complaints. She states she always has "problems with my stomach. It appears that she had a GI bleed last time and was scoped. She denies abdominal pain or chest pain at this time. She states she has had multiple transfusions in the past thank you and she says she probably needs another one now. She said her stools are always dark since she is not certain when this happened. However at the end of June she had a hemoglobin drawn and it was in the 8 regions that seems to be from there to today she has had this drop. Past medical history reviewed in nurse's notes reviewed allergies reviewed med list reviewed. Pain Scale: 0 - Related Data Home Medications Medication Instructions Recorded Confirmed Allopurinol [Zyloprim 300 MG] 300 mg PO DAILY 01/12/16 07/22/17 Calcium Carbonate [Calcium] 1,500 mg PO BID 04/22/16 07/22/17 Oxygen 4 l NS AD 04/22/16 07/22/17 Folic Acid 1 mg PO DAILY 05/28/16 07/22/17 Ranitidine HCl [Acid Regulatory Auditor] 150 mg PO BID 07/12/16 07/22/17 Albuterol Sulfate [Ventolin Hfa] 1 - 2 puff IH Q4-6H PRN 10/14/16 07/22/17 Umeclidinium [place] [Incruse 1 puff IH QPM 10/14/16 07/22/17 Ellipta] Levothyroxine Sodium [Levoxyl] 75 mcg PO QAM 06/03/17 07/22/17 Sacubitril/Valsartan 24/26 mg 1 tab PO BID 06/03/17 07/22/17 [Entresto 24 mg-26 mg Tablet] Fluticasone/Vilanterol [Breo 1 each IH BID 06/16/17 07/22/17 Ellipta 200-25 Mcg INH] Ondansetron ODT [Zofran ODT] 4 mg SL Q8H PRN 06/16/17 07/22/17 Ciprofloxacin OPTH Soln [Ciloxan 2 drop BOTH EYES Q4H 07/08/17 07/22/17 OPTH Soln] FLUoxetine HCl [Prozac] 20 mg PO HS 07/08/17 07/22/17 Ferrous Gluconate 324 mg PO 1200 07/08/17 07/22/17 Ropinirole HCl [Requip] 4 mg PO HS 07/09/17 07/22/17 cephALEXin [Keflex] 500 mg PO BID 07/22/17 07/22/17 Previous Rx's Medication Instructions Recorded Amiodarone [Cordarone] 200 mg PO DAILY #0 06/19/17 Furosemide [Lasix] 40 mg PO BID tablet 06/19/17 ALPRAZolam [Xanax 0.25 MG Tablet] 0.25 mg PO HS 5 Days #5 tablet 07/11/17 Hydrocodone/Acetaminophen 1 each PO Q6H PRN 5 Days #10 tablet 07/11/17 [Hydrocodon-Acetaminophen 5-325] Omeprazole [PriLOSEC] 40 mg PO BID capsule. 07/11/17 OxyCODONE/APAP 5/325 [Percocet 1 each PO Q6HR PRN 5 Days #10 07/11/17 5/325 MG] tablet Sucralfate [Carafate] 1 gm PO QIDAC tablet 07/11/17 Allergies Allergy/AdvReac Type Severity Reaction Status Date / Time Penicillins Allergy Hives Verified 07/22/17 09:43 Sulfa (Sulfonamide Allergy Hives Verified 07/22/17 09:43 Antibiotics) gabapentin AdvReac Hallucinati Verified 07/22/17 09:43 ng Oxycodone [From Percocet] AdvReac Hallucinati Verified 07/22/17 09:43 ng Review of Systems: Patient positive review of systems for being cold, feeling generalized weakness. And feeling some nauseous. All systems ED: reviewed and negative except as stated. Past Medical History - Past Medical History Medical history: Reports: asthma, atrial fibrillation, cancer, cardiomyopathy, CHF, COPD, GERD, GI bleed, renal disease, thyroid disease, valvular heart disease Surgical history: Reports: appendectomy, breast surgery, cancer surgery, heart valve replacement, hysterectomy, pacemaker/AICD Psychiatric history: Reports: anxiety, depression TECHNOLOGY INFUSION SPECIALIST history: Reports: no TECHNOLOGY INFUSION SPECIALIST history - Social History Smoking Status: Former smoker Smokeless Tobacco Status: No Alcohol use: Reports: none Drug use: Reports: none Physical Exam temperature is 94.1, pulse is 54 and regular, Respirations are 22 a and nonlabored, BP is 83/47, pulse ox is 100%. She is alert cooperative appears not feel well but is nontoxic. HEENT: Extremities are dry neck is supple no scleral icterus midline airway no drooling or stridor Cardiovascular is bradycardic but regular without rubs lungs have some decreased aeration in the bases but no crackles. Abdomen is soft nonsurgical good bowel sounds no masses she has dark-colored stool which is guaiac positive. No signs of acute bleeding Extremities are present 4 good distal pulses Refill is brisk. She does have edema in her left arm which is normal and she says that is from her previous breast cancer and she asked that no IV access be placed in that arm. Neurologic she is alert to person place and time nontoxic moves all extremities Dermatologic skin is warm and dry changes associated with age. - General Limitations: physical limitation General appearance: alert, in no apparent distress Course Vital Signs Temperature 94.1 F L 07/22/17 10:48 Pulse Rate 41 07/22/17 10:48 Respiratory Rate 22 07/22/17 10:48 Blood Pressure 83/47 07/22/17 10:48 O2 Sat by Pulse Oximetry 100 07/22/17 10:48 Temperature 94.2 F L 07/22/17 13:37 Pulse Rate 50 07/22/17 13:37 Respiratory Rate 10 07/22/17 13:37 Blood Pressure 86/52 07/22/17 13:37 O2 Sat by Pulse Oximetry 100 07/22/17 13:29 Oxygen Delivery Oxygen Delivery Nasal Cannula Medical Decision Making - MDM Narrative Medical decision making narrative: On her last endoscopy she had some lesions in the duodenum in the stomach. This may be the source of bleeding today. She is getting 2 IVs placed fluids air hugger warmer, calling for blood. Spoke with Dr. Gerard is on for GI he said he will talk with GI about doing another scope with her. We will try to get her stabilized here and then she will most likely need admission to the ICU. Patient's in agreement with this plan. Reviewing her labs from this morning and then repeating labs that were not done this morning. She is in agreement with this plan. Her EKG was done at 1107 hrs. shows a ventricular paced rhythm with a rate of 50 , QRS is 187 no signs of ischemia, compared this with her EKG that was done last month she was sinus bradycardia at that time also. 1247 hrs.: Spoke with lab there has been a delay on chemistries. However on those are still processing. I spoke with ICU Dr. Farrell he is accepting her to the ICU he asked us to poultry picker chest x-ray also. We will get a blood transfusion started once they bring that up and will check on a chemistry to make sure that is good. Lactate and troponin are back and troponins negative with a normal lactate. Patient's in agreement with this plan. 1324 hrs.: Patient's labs are back. She has got bloody here which we will go ahead and do transfusion and then transfer her over to the ICU and then she can be seen by GI there also. She is updated. Patient's critical care time excluding any separately billable procedures is 50 minutes. Chest X-Ray 07/22/17 12:46 IMPRESSION: Features of worsening heart failure, including progressive interstitial edema and vascular congestion. Suspect small left effusion. Partially obscured right basilar opacities which could reflect a combination of atelectasis, fluid and edema, however cannot exclude superimposed airspace disease such as aspiration or pneumonia. Stable cardiomegaly. D/ / Murali Saeed / Murali Saeed Interpreting Provider: Murali Saeed 1350 hrs.: ICU team's seen the patient in the ER. And they will transfer over to the ICU now - Lab Data Result diagrams: 07/22/17 11:33 Lab Results 07/22/17 07/22/17 07/22/17 Range/Units 10:13 11:33 11:33 PT (9.4-12.1) Seconds INR APTT (26.0-36.0) Seconds Sodium 145 (136-145) mEq/L Potassium 3.8 (3.5-5.1) mEq/L Chloride 95 L (98-107) mEq/L Carbon Dioxide > 45 H* (23-29) mEq/L BUN 34 H (8-23) mg/dL Creatinine 1.51 H (0.60-1.20) mg/dL Est GFR ( Amer) 40 L (> 60) Est GFR (Non-Af Amer) 33 L (> 60) BUN/Creatinine Ratio 23 (6-26) Glucose 95 (70-105) mg/dL Calculated Osmolality 307 H (280-300) Lactic Acid 0.9 (0.5-2.2) mmol/L Calcium 9.1 (8.6-10.3) mg/dL Phosphorus 2.5 L (2.7-4.5) mg/dL Magnesium 2.0 (1.6-2.6) mg/dL Total Bilirubin 0.4 (0.3-1.0) mg/dL Direct Bilirubin 0.2 (0.0-0.2) mg/dL Indirect Bilirubin 0.2 (0.0-1.2) mg/dL AST 11 L (13-39) Units/L ALT 8 (7-52) Units/L Alkaline Phosphatase 73 (34-104) Units/L Troponin I < 0.03 (< 0.04) ng/mL Serum Total Protein 4.8 L (6.4-8.9) g/dL Albumin 2.6 L (3.5-5.7) g/dL Globulin 2.2 L (2.4-3.5) g/dL Albumin/Globulin Ratio 1.2 (1.1-2.2) Urine Color (Yellow) Urine Clarity (Clear) Urine pH (5.0-8.0) pH Units Ur Specific [place] (1.010-1.025) Urine Protein (Neg-Trace) mg/dL Urine Glucose (UA) (Normal) mg/dL Urine Ketones (Negative) mg/dL Urine Blood (Negative) Urine Nitrite (Negative) Urine Bilirubin (Negative) Urine Urobilinogen (Normal) mg/dL Ur Leukocyte Esterase (Negative) Ur Culture Indicated? (NO) Blood Type O POSITIVE Antibody Screen NEGATIVE Crossmatch See Detail 07/22/17 07/22/17 Range/Units 11:34 11:45 PT 11.1 (9.4-12.1) Seconds INR 1.0 APTT 43.5 H (26.0-36.0) Seconds Sodium (136-145) mEq/L Potassium (3.5-5.1) mEq/L Chloride (98-107) mEq/L Carbon Dioxide (23-29) mEq/L BUN (8-23) mg/dL Creatinine (0.60-1.20) mg/dL Est GFR ( Amer) (> 60) Est GFR (Non-Af Amer) (> 60) BUN/Creatinine Ratio (6-26) Glucose (70-105) mg/dL Calculated Osmolality (280-300) Lactic Acid (0.5-2.2) mmol/L Calcium (8.6-10.3) mg/dL Phosphorus (2.7-4.5) mg/dL Magnesium (1.6-2.6) mg/dL Total Bilirubin (0.3-1.0) mg/dL Direct Bilirubin (0.0-0.2) mg/dL Indirect Bilirubin (0.0-1.2) mg/dL AST (13-39) Units/L ALT (7-52) Units/L Alkaline Phosphatase (34-104) Units/L Troponin I (< 0.04) ng/mL Serum Total Protein (6.4-8.9) g/dL Albumin (3.5-5.7) g/dL Globulin (2.4-3.5) g/dL Albumin/Globulin Ratio (1.1-2.2) Urine Color Yellow (Yellow) Urine Clarity Clear (Clear) Urine pH 6.0 (5.0-8.0) pH Units Ur Specific [place] 1.019 (1.010-1.025) Urine Protein Negative (Neg-Trace) mg/dL Urine Glucose (UA) Normal (Normal) mg/dL Urine Ketones Negative (Negative) mg/dL Urine Blood Negative (Negative) Urine Nitrite Negative (Negative) Urine Bilirubin Negative (Negative) Urine Urobilinogen Normal (Normal) mg/dL Ur Leukocyte Esterase Negative (Negative) Ur Culture Indicated? NO (NO) Blood Type Antibody Screen Crossmatch
[2017-07-22 11:56] LABS: Prothrombin Time 11.1 Seconds (9.4-12.1)
[2017-07-22 11:59] LABS: Bilirubin,Urine Negative (Negative); Blood,Urine Negative (Negative); Clarity,Urine Clear (Clear); Color,Urine Yellow (Yellow); Glucose,Urine (UA) Normal (Normal); Ketones,Urine Negative (Negative); Leukocyte Esterase,Urine Negative (Negative); Nitrite,Urine Negative (Negative); Protein,Urine Negative (Neg-Trace); Specific Gravity,Urine 1.019 (1.010-1.025); Urobilinogen,Urine Normal (Normal)
[2017-07-22 11:59] LABS: Activated Partial Thrombo Time 43.5 Seconds (26.0-36.0)
[2017-07-22] MEDS ORDERED: Pantoprazole 40 MG VIAL IVP ONE (12:01)
[2017-07-22 12:45] LABS: Troponin I < 0.03 ng/mL (< 0.04)
[2017-07-22 13:00] LABS: Alanine Aminotransferase 8 Units/L (7-52); Albumin 2.6 g/dL (3.5-5.7); Albumin/Globulin Ratio 1.2 (1.1-2.2); Alkaline Phosphatase 73 Units/L (34-104); Aspartate Amino Transferase 11 Units/L (13-39); BUN/Creatinine Ratio 23 (6-26); Bilirubin,Direct 0.2 mg/dL (0.0-0.2); Bilirubin,Indirect 0.2 mg/dL (0.0-1.2); Bilirubin,Total 0.4 mg/dL (0.3-1.0); Blood Urea Nitrogen 34 mg/dL (8-23); Calcium 9.1 mg/dL (8.6-10.3); Carbon Dioxide > 45 mEq/L (23-29); Chloride 95 mEq/L (98-107); Globulin 2.2 g/dL (2.4-3.5); Glucose 95 mg/dL (70-105); Osmolality,Calculated 307 (280-300); Phosphorous 2.5 mg/dL (2.7-4.5); Potassium 3.8 mEq/L (3.5-5.1); Sodium 145 mEq/L (136-145); Total Protein 4.8 g/dL (6.4-8.9); eGFR For African Americans 40 (> 60); eGFR For Non-African Americans 33 (> 60)
[2017-07-22] MEDS ORDERED: 0.9 % Sodium Chloride 250 ML ONE (13:08)
--- NOTE | 2017-07-22 13:25 | Gastroenterology Consult Note ---
<Duy Serna - Last Filed: 07/22/17 16:22> Date of Encounter: 07/22/17 Time of Encounter: 13:23 - Assessment and plan (1) Anemia Status: Acute Assessment and plan: Patient presented to the ED form oncologist's office for evaluation of anemia with Hgb 5.9. Patient reports chronic melena due to iron supplementation. Occult blood test was positive in the ED. EGD 07/10/17 Dr. Rojo: severe reflux esophagitis and non-bleeding angioectasia in duodenum and jejunum. Pathology report showed acute ulcerative esophagitis negative for dysplasia. Colonoscopy 07/10/17 Dr. Rojo: Two 5mm non-bleeding polyps in desending colon. Pathology report showed tubular adenoma negative for high grade dysplasia. Patient was transfused one unit of PRBCs and transferred to the ICU. Monitor CBC and transfuse prn HGB < 7 Continue IVF prn hypotension Continue Protonix drip NPO status Anticipate EGD tomorrow Qualifiers: Anemia type: unspecified type Qualified Code(s): D64.9 - Anemia, unspecified - Time Spent With Patient Total time spent is greater than 50% in coordination of care (as documented) at patient's floor/unit and/or counseling patient: GI History of Present Illness - Data of Consult Patient: known to practice within the last 3 years Consult date: 07/22/17 Requesting Physician: Dr. Monster Erickson - Consult Narrative Reason for consult: GI bleed, HGB 5.9 History of present illness: Ms. 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 Patient reports chronic hypotension and dark colored stools due to iron supplementation. Occult blood test was positive in the ED. Patient denies fever, chills, chest pain, abdominal pain, nausea, vomiting, or hematochezia. GI was consulted to evaluate her anemia. Patient was transfused one unit of PRBCs and transferred to the ICU with Bare hugger in place due to hypothermia temp 94.1 F. Procedures: EGD 07/10/17 Dr. Rojo: severe reflux esophagitis and non-bleeding angioectasia in duodenum and jejunum. Pathology report showed acute ulcerative esophagitis negative for dysplasia. Colonoscopy 07/10/17 Dr. Rojo: Two 5mm non-bleeding polyps in desending colon. Pathology report showed tubular adenoma negative for high grade dysplasia. EGD 06/03/2017 Dr. Zelaya: LA Grade A esophagitis, chronic gastritis, single nonbleeding AVM. Colonoscopy 06/04/2016 Dr. Rojo: Single nonbleeding AVM treated with APC, internal hemorrhoids. Recommended capsule endoscopy-not completed. EGD 06/04/2016 Dr. Rojo: Small hiatal hernia, single red spot with no bleeding in duodenum, questionable AVM, treated with APC. Colonoscopy 08/13/2015 Dr. Rojo: Single nonbleeding AVM treated with APC, diverticulosis, internal hemorrhoids. Small bowel enteroscopy 08/13/2015 Dr. Rojo: Three nonbleeding AVM in duodenum and one in stomach, treated with APC. EGD 07/15/2015 Dr. Sweet: Small hiatus hernia, two nonbleeding AVM treated with APC. NSAIDs: None Anticoagulation: None Colonoscopy: 07/10/17 colonoscopy revealed two 5mm non-bleeding polyps in desending colon EGD: 07/10/17 EGD revealed reflux esophagitis, angioectasia in duodenum & jejunum Past Med Surg Social Fam HX - Past Medical History Medical history: asthma, atrial fibrillation, cancer, cardiomyopathy, CHF, COPD , GERD, GI bleed, renal disease, thyroid disease, valvular heart disease Psychiatric history: anxiety, depression - Past Surgical History Surgical History: appendectomy, breast surgery, cancer surgery, heart valve replacement, hysterectomy, pacemaker/AICD - Social History Smoking Status: Former smoker Smokeless Tobacco Status: No Alcohol use: none Drug use: none - Family History Mother Family Member Ethnicity: Non- Living Status: Hx Family Cardiac Disorders: No Hx Family Respiratory Disorders: No Hx Family Cancer: Yes Hx Family GI Disorders: No Hx Family Endocrine Disorder: No Hx Family Neuromuscular Disorders: No Hx Family Neurologic Disorders: No Hx Family HEENT Disorders: No Hx Family Autoimmune Disorders: No Father Living Status: Hx Family Cardiac Disorders: Yes Hx Family Respiratory Disorders: No Hx Family Cancer: Yes Hx Family GI Disorders: No Hx Family Endocrine Disorder: No Hx Family Neuromuscular Disorders: No Hx Family Neurologic Disorders: No Hx Family HEENT Disorders: No Hx Family Autoimmune Disorders: No - Gastrointestinal Gastrointestinal: Present: melena. Absent: abdominal pain, constipation, diarrhea, hematemesis, hematochezia, nausea, vomiting - Constitutional Constitutional: fatigue, no anorexia, no fever(s), no weight gain, no weight loss - EENT Nose, mouth and throat: Absent: dysphagia, sore throat - Cardiovascular Cardiovascular ROS: Absent: chest pain, irregular heart rhythm, palpitations - Respiratory Respiratory IM: Present: dyspnea. Absent: cough, hemoptysis - Genitourinary Genitourinary: Absent: change in color, Urinary frequency - Neurological ROS Neurological GI: Present: dizziness, weakness. Absent: confusion, headache( s), memory loss - Hematologic/Lymphatic Hematologic/Lymphatic pediatric: Present: as per HPI. Absent: easy bleeding - Musculoskeletal Musculoskeletal ROS GI: Absent: back pain, joint swelling - Integumentary Integumentary GI: Absent: jaundice, pruritis, rash - Psychiatric ROS Psychiatric GI: Absent: anxiety, depression - Endocrine Endocrine IM: Present: fatigue. Absent: cold intolerance, heat intolerance - Constitutional Vitals: Temp Pulse Resp BP Pulse Ox 94.1 F L 54 12 87/53 100 07/22/17 10:48 07/22/17 12:24 07/22/17 12:24 07/22/17 12:24 07/22/17 12:24 General appearance: Present: cooperative, A&O X 3, no acute distress, answers questions appropriately - Head Head exam: Present: atraumatic, normocephalic - Eye Eye exam: Present: normal appearance, sclera anicteric - ENT ENT exam: Present: mucous membranes dry, normal oropharynx - Neck Neck exam general surgery: Present: normal inspection, trachea midline - Respiratory Respiratory exam: Present: CTAB - Cardiovascular Cardiovascular exam: Present: RRR, +S1, +S2 - GI/Abdominal GI/Abdominal exam: Present: normal bowel sounds, soft, no peritoneal signs. Absent: distended, tenderness - Rectal Rectal exam: Present: heme (+) stool - Extremities Exam Extremities exam: Present: warm. Absent: pedal edema - Neurological Exam Neurological exam: Present: oriented X3, no focal deficits - Psychiatric Psychiatric exam: Present: normal affect, normal mood - Skin Skin exam: Present: dry, intact, pallor. Absent: warm Results - Labs CBC & Chem 7: 07/22/17 11:33 Labs: Last Result Calcium 9.1 mg/dL (8.6-10.3) 07/22/17 11:33 Troponin I < 0.03 ng/mL (< 0.04) 07/22/17 11:33 Entire Visit PT 11.1 Seconds (9.4-12.1) 07/22/17 11:34 Total Bilirubin 0.4 mg/dL (0.3-1.0) 07/22/17 11:33 AST 11 Units/L (13-39) L 07/22/17 11:33 ALT 8 Units/L (7-52) 07/22/17 11:33 - ABG ABG results: PT/INR, D-dimer PT 11.1 Seconds (9.4-12.1) 07/22/17 11:34 - Impressions Impressions Chest X-Ray 07/22/17 12:46 IMPRESSION: Features of worsening heart failure, including progressive interstitial edema and vascular congestion. Suspect small left effusion. Partially obscured right basilar opacities which could reflect a combination of atelectasis, fluid and edema, however cannot exclude superimposed airspace disease such as aspiration or pneumonia. Stable cardiomegaly. D/ / Murali Saeed / Murali Saeed Interpreting Provider: Murali Saeed Consult Discharge Plan - Plan Instructions: Anemia (GEN) Additional Instructions: Follow-up with cancer Center according to your appointments Referrals: Francisco Melgar Jr [Primary Care Provider] - (In 1-2 weeks) Ninfa Rojo MD [Partnered Physician] - (In 2-3 weeks chronic anemia) Prescriptions: ALPRAZolam [Xanax 0.25 MG Tablet] 0.25 mg PO HS 5 Days #5 tablet <Charly Zelaya - Last Filed: 08/11/17 07:24> Date of Encounter: 07/22/17 - Time Spent With Patient Total time spent is greater than 50% in coordination of care (as documented) at patient's floor/unit and/or counseling patient: GI History of Present Illness - Data of Consult Requesting Physician: Delano Kraft MD - Consult Narrative History of present illness: Ms. Higginbotham is a 77 year old female - Constitutional Vitals: Temp Pulse Resp BP Pulse Ox 97.4 F L 58 18 113/54 97 07/28/17 07:00 07/28/17 07:00 07/28/17 15:51 07/28/17 07:00 07/28/17 15:51 Results - Labs CBC & Chem 7: 07/28/17 04:00 07/28/17 04:00 Labs: Last Result Calcium 8.8 mg/dL (8.6-10.3) 07/28/17 04:00 Troponin I < 0.03 ng/mL (< 0.04) 07/22/17 11:33 Entire Visit Hgb 8.6 g/dL (11.5-15.4) L 07/28/17 04:00 Hct 29.0 % (35.3-44.9) L 07/28/17 04:00 PT 11.1 Seconds (9.4-12.1) 07/22/17 11:34 Total Bilirubin 0.4 mg/dL (0.3-1.0) 07/22/17 11:33 AST 11 Units/L (13-39) L 07/22/17 11:33 ALT 8 Units/L (7-52) 07/22/17 11:33 E. coli (PCR) Not Detected (Not Detect) 07/22/17 11:33 - ABG ABG results: ABG ABG pH 7.33 pH Units (7.32-7.45) 07/28/17 11:11 ABG pCO2 85 mmHg (35-45) H* 07/28/17 11:11 ABG pO2 74 mmHg (85-104) L 07/28/17 11:11 ABG O2 Saturation 92 % (95-98) L 07/28/17 11:11 PT/INR, D-dimer PT 11.1 Seconds (9.4-12.1) 07/22/17 11:34 - Attending Attestation is an unfortunate 77-year-old white female with severe comorbid problems as discussed in the history and physical as well as in consultation she does have severe anemia the etiology of her anemia is multifactorial. She has had undergone previous studies she has had esophageal ulceration as well as arteriovenous malformations certainly be playing a role in narrowing and anemia at this time. Provided she is certainly hemodynamically stable clinically and will plan endoscopy and make a decision at the time with regard to the procedure I examined this patient and my medical decision-making was reviewed with the Resident Physician. I agree with the documented findings, disposition and treatment plan as described except to the extent set forth below. .
--- NOTE | 2017-07-22 14:11 | Pulmonology History & Physical ---
<Danny Burch - Last Filed: 07/22/17 15:22> Date of Encounter: 07/22/17 Time of Encounter: 14:05 Assessment and Plan (1) Acute blood loss anemia Current visit: Yes Status: Acute GI consulted by ED and onboard; await their recommendations -- recent history of acute on chronic anemia with multiple endoscopies + blood transfusion [see Recent GI History below] -- likely multifactorial anemia including acute blood loss and anemia of chronic disease -- transfuse 2U pRBCs in progress; will check 2 hour post transfusion H/H -- goal of transfusion is 7.0 g/dL -- will order additional units if not at goal -- will check H/H again 6 hours after adequate post-transfusion H/H -- pt on protonix infusion for time-being -- GI consulted and plans EGD in AM; Pt will remain NPO -- pt has been hypotensive, hypothermic, and bradycardic 1. monitoring with fluid resuscitation 2. bear hugger warmer in place 3. cardiology consulted for assessment of pacer/defibrillator (set at low threshold of 50 bpm) Recent GI History Procedures: EGD 07/10/17 Dr. Rojo: severe reflux esophagitis and non-bleeding angioectasia in duodenum and jejunum. Pathology report showed acute ulcerative esophagitis negative for dysplasia. Colonoscopy 07/10/17 Dr. Rojo: Two 5mm non-bleeding polyps in desending colon. Pathology report showed tubular adenoma negative for high grade dysplasia. EGD 06/03/2017 Dr. Zelaya: LA Grade A esophagitis, chronic gastritis, single nonbleeding AVM. Colonoscopy 06/04/2016 Dr. Rojo: Single nonbleeding AVM treated with APC, internal hemorrhoids. Recommended capsule endoscopy-not completed. EGD 06/04/2016 Dr. Rojo: Small hiatal hernia, single red spot with no bleeding in duodenum, questionable AVM, treated with APC. Colonoscopy 08/13/2015 Dr. Rojo: Single nonbleeding AVM treated with APC, diverticulosis, internal hemorrhoids. Small bowel enteroscopy 08/13/2015 Dr. Rojo: Three nonbleeding AVM in duodenum and one in stomach, treated with APC. EGD 07/15/2015 Dr. Sweet: Small hiatus hernia, two nonbleeding AVM treated with APC. NSAIDs: None Anticoagulation: None (2) Hypotension Current visit: Yes Status: Acute pt states has not taken antihypertensives today; currently being held in ICU. Continues to be hypotensive despite multiple liters of fluid resuscitation. Monitoring BP closely. Qualifiers: Hypotension type: other hypotension type Qualified Code(s): I95.89 - Other hypotension (3) Bradycardia Current visit: Yes Status: Acute Does have ICD with kat threshold set to 50+ bpm; consulted cardiology who agrees to see patient. Presently holding usual Cordarone. (4) Hypothermia Current visit: Yes Status: Acute Likely due to anemia; cont warmer for time being and cont to monitor. Qualifiers: Encounter type: initial encounter Qualified Code(s): T68.XXXA - Hypothermia , initial encounter (5) Congestive heart failure Current visit: Yes Status: Chronic Suspect acute exacerbation in addition to above due to pedal/pulmonary edema -- pt does not appear to have decompensated respiratory status or increased work of breathing -- monitoring BPs and may give Lasix if improves or stabilizes (6) Atrial fibrillation Current visit: No Status: Chronic ICD as above, bradycardic at present. Anticoagulants contraindicated at this time due to acute anemia. Qualifiers: Atrial fibrillation type: paroxysmal Qualified Code(s): I48.0 - Paroxysmal atrial fibrillation (7) COPD (chronic obstructive pulmonary disease) Current visit: No Status: Chronic Does not appear to have any acute element of COPD; ordered PRN nebulizer treatments. Supplement O2 as needed to sustain SpO2 >88%. Qualifiers: COPD type: chronic bronchitis Chronic bronchitis type: mucopurulent Qualified Code(s): J41.1 - Mucopurulent chronic bronchitis (8) Primary invasive malignant neoplasm of left female breast Current visit: No Status: Acute Sees oncology and was sent to [facility] by oncology clinic for acutely low Hgb ( 5.9 g/dL) (9) Type 2 diabetes mellitus Current visit: No Status: Chronic monitor FSBG q6h Qualifiers: Diabetes mellitus long term care social worker insulin use: without long term care social worker use Diabetes mellitus complication status: with circulatory complication Diabetes mellitus complication detail: with other circulatory complications Qualified Code(s): E11.59 - Type 2 diabetes mellitus with other circulatory complications (10) DVT prophylaxis Current visit: Yes Status: Acute SCDs History of Present Illness Chief complaint: weakness / anemia HPI: Ms. Higginbotham is a 76 year old female with PMH of recurrent GI bleed due to AVM, combined CHF, COPD, DM-II, aortic valve replacement, Afib, ICD and pacemaker, DVT, and stage II breast cancer. She was sent to ED from oncologist's office for evaluation and treatment of recurrent anemia. Hgb was 5.9 initially today. She does have history of anemia from G.I. bleed with relatively recently. Was transfused at that time for acute anemia (6.8g); baseline Hgb seems to average around 8g/dL. Had EGD on 07/10/[address] Rojo demonstrating non-bleeding telangiectasias and ulcerative esophagitis. Current platelet count is 66k. APTT is 43.5; otherwise normal PT/INR. CXR demonstrates pulmonary edema and small pleural effusions. Pt states she has been feeling weak lately unable to get out of bed yesterday due to fatigue/weakness. She denies known acute illness, fevers, chills, epistaxis, rash, chest pain, (productive) cough, abdominal pain, nausea, vomiting, vaginal bleeding, hematuria, melena, or hematochezia. GI was consulted by ED to evaluate anemia. Past Med Surg Social Fam HX - Past Medical History Attestation: Yes The following information was validated with the patient. Source: patient, old records reviewed, nursing notes reviewed Medical history: asthma, atrial fibrillation, cancer, cardiomyopathy, CHF, COPD , GERD, GI bleed, renal disease, thyroid disease, valvular heart disease Psychiatric history: anxiety, depression - Past Surgical History Surgical History: appendectomy, breast surgery, cancer surgery, heart valve replacement, hysterectomy, pacemaker/AICD - Social History Smoking Status: Former smoker Smokeless Tobacco Status: No Alcohol use: none Drug use: none - Family History Mother Family Member Ethnicity: Non- Living Status: Hx Family Cardiac Disorders: No Hx Family Respiratory Disorders: No Hx Family Cancer: Yes Hx Family GI Disorders: No Hx Family Endocrine Disorder: No Hx Family Neuromuscular Disorders: No Hx Family Neurologic Disorders: No Hx Family HEENT Disorders: No Hx Family Autoimmune Disorders: No Father Living Status: Hx Family Cardiac Disorders: Yes Hx Family Respiratory Disorders: No Hx Family Cancer: Yes Hx Family GI Disorders: No Hx Family Endocrine Disorder: No Hx Family Neuromuscular Disorders: No Hx Family Neurologic Disorders: No Hx Family HEENT Disorders: No Hx Family Autoimmune Disorders: No Medications and Allergies Allopurinol [Zyloprim 300 MG] 300 mg PO DAILY 01/12/16 [History] Calcium Carbonate [Calcium] 1,500 mg PO BID 04/22/16 [History] Oxygen 4 l NS AD 04/22/16 [History] Folic Acid 1 mg PO DAILY 05/28/16 [History] Ranitidine HCl [Acid Manager Eligibility] 150 mg PO BID 07/12/16 [History] Albuterol Sulfate [Ventolin Hfa] 1 - 2 puff IH Q4-6H PRN 10/14/16 [History] Umeclidinium [place] [Incruse Ellipta] 1 puff IH QPM 10/14/16 [History] Levothyroxine Sodium [Levoxyl] 75 mcg PO QAM 06/03/17 [History] Sacubitril/Valsartan 24/26 mg [Entresto 24 mg-26 mg Tablet] 1 tab PO BID [History] Fluticasone/Vilanterol [Breo Ellipta 200-25 Mcg INH] 1 each IH BID 06/16/17 [ History] Ondansetron ODT [Zofran ODT] 4 mg SL Q8H PRN 06/16/17 [History] Amiodarone [Cordarone] 200 mg PO DAILY #0 06/19/17 [Rx] Furosemide [Lasix] 40 mg PO BID tablet 06/19/17 [Rx] Ciprofloxacin OPTH Soln [Ciloxan OPTH Soln] 2 drop BOTH EYES Q4H 07/08/17 [ History] FLUoxetine HCl [Prozac] 20 mg PO HS 07/08/17 [History] Ferrous Gluconate 324 mg PO 1200 07/08/17 [History] Ropinirole HCl [Requip] 4 mg PO HS 07/09/17 [History] ALPRAZolam [Xanax 0.25 MG Tablet] 0.25 mg PO HS 5 Days #5 tablet 07/11/17 [Rx] Hydrocodone/Acetaminophen [Hydrocodon-Acetaminophen 5-325] 1 each PO Q6H PRN 5 Days #10 tablet 07/11/17 [Rx] Omeprazole [PriLOSEC] 40 mg PO BID capsule. 07/11/17 [Rx] OxyCODONE/APAP 5/325 [Percocet 5/325 MG] 1 each PO Q6HR PRN 5 Days #10 tablet [Rx] Sucralfate [Carafate] 1 gm PO QIDAC tablet 07/11/17 [Rx] cephALEXin [Keflex] 500 mg PO BID 07/22/17 [History] 3 Allergy/AdvReac Type Severity Reaction Status Date / Time Penicillins Allergy Hives Verified 07/22/17 09:43 Sulfa (Sulfonamide Allergy Hives Verified 07/22/17 09:43 Antibiotics) gabapentin AdvReac Hallucinati Verified 07/22/17 09:43 ng Oxycodone [From Percocet] AdvReac Hallucinati Verified 07/22/17 09:43 ng All Systems: The remainder of the systems were reviewed and are negative Physical Examination General appearance: no acute distress, alert Eyes: nonicteric ENT: oropharynx moist Effort: normal Auscultation: bilateral: clear Cardiovascular: regular rate and rhythm (bradycardic; did not hear murmurs or gallops) Gastrointestinal: soft, non-tender, non-distended Integumentary: normal Extremities: no cyanosis, edema (1-2+ pitting) normal mental status mood appropriate, affect normal Results - Laboratory Findings CBC and BMP: 07/22/17 11:33 PT/INR, D-dimer PT 11.1 Seconds (9.4-12.1) 07/22/17 11:34 Abnormal lab findings: Abnormal lab results APTT 43.5 Seconds (26.0-36.0) H 07/22/17 11:34 Chloride 95 mEq/L (98-107) L 07/22/17 11:33 Carbon Dioxide > 45 mEq/L (23-29) H* 07/22/17 11:33 BUN 34 mg/dL (8-23) H 07/22/17 11:33 Creatinine 1.51 mg/dL (0.60-1.20) H 07/22/17 11:33 Est GFR ( Amer) 40 (> 60) L 07/22/17 11:33 Est GFR (Non-Af Amer) 33 (> 60) L 07/22/17 11:33 Calculated Osmolality 307 (280-300) H 07/22/17 11:33 Phosphorus 2.5 mg/dL (2.7-4.5) L 07/22/17 11:33 AST 11 Units/L (13-39) L 07/22/17 11:33 Serum Total Protein 4.8 g/dL (6.4-8.9) L 07/22/17 11:33 Albumin 2.6 g/dL (3.5-5.7) L 07/22/17 11:33 Globulin 2.2 g/dL (2.4-3.5) L 07/22/17 11:33 <Carlos Pennington W - Last Filed: 07/22/17 17:46> Date of Encounter: 07/22/17 History of Present Illness HPI: Ms. Higginbotham is a 76 year old female All Systems: The remainder of the systems were reviewed and are negative Physical Examination Vital Signs: Vital Signs, Last 4 Hours Temp Pulse Resp BP Pulse Ox 07/22/17 17:00 50 12 98/49 100 07/22/17 16:20 13 82/45 100 07/22/17 16:00 50 18 83/43 100 07/22/17 15:50 95 F L 50 12 80/46 100 07/22/17 15:00 50 12 100 07/22/17 14:26 100 07/22/17 14:15 50 10 86/47 100 Results - Laboratory Findings CBC and BMP: 07/22/17 11:33 ABG ABG pH 7.33 pH Units (7.32-7.45) 07/22/17 16:39 ABG pCO2 96 mmHg (35-45) H* 07/22/17 16:39 ABG pO2 77 mmHg (85-104) L 07/22/17 16:39 ABG O2 Saturation 93 % (95-98) L 07/22/17 16:39 PT/INR, D-dimer PT 11.1 Seconds (9.4-12.1) 07/22/17 11:34 Abnormal lab findings: Abnormal lab results APTT 43.5 Seconds (26.0-36.0) H 07/22/17 11:34 ABG pCO2 96 mmHg (35-45) H* 07/22/17 16:39 ABG pO2 77 mmHg (85-104) L 07/22/17 16:39 ABG HCO3 51 mEq/L (21-27) H 07/22/17 16:39 ABG Total CO2 53 mEq/L (20-26) H 07/22/17 16:39 ABG O2 Saturation 93 % (95-98) L 07/22/17 16:39 ABG Base Excess 22 mEq/L (-2 to 3) H 07/22/17 16:39 Chloride 95 mEq/L (98-107) L 07/22/17 11:33 Carbon Dioxide > 45 mEq/L (23-29) H* 07/22/17 11:33 BUN 34 mg/dL (8-23) H 07/22/17 11:33 Creatinine 1.51 mg/dL (0.60-1.20) H 07/22/17 11:33 Est GFR ( Amer) 40 (> 60) L 07/22/17 11:33 Est GFR (Non-Af Amer) 33 (> 60) L 07/22/17 11:33 Calculated Osmolality 307 (280-300) H 07/22/17 11:33 Phosphorus 2.5 mg/dL (2.7-4.5) L 07/22/17 11:33 AST 11 Units/L (13-39) L 07/22/17 11:33 Serum Total Protein 4.8 g/dL (6.4-8.9) L 07/22/17 11:33 Albumin 2.6 g/dL (3.5-5.7) L 07/22/17 11:33 Globulin 2.2 g/dL (2.4-3.5) L 07/22/17 11:33 TSH 48.410 mcIU/mL (0.340-5.600) H 07/22/17 11:33 - Attending Attestation I examined this patient and my medical decision-making was reviewed with the Resident Physician. I agree with the documented findings, disposition and treatment plan as described except to the extent set forth below. We independently had [id number] contact with the patient Patient seen and examined at bedside Labs, radiology, chart personally reviewed. TELEVISION TUBE INSPECTOR: Awake and alert and follows commands no focal neurological deficit Pulm: Chronic hypoxic respiratory failure which is a combination of very severe COPD obesity hypoventilation syndrome obstructive sleep apnea we will use positive airway pressure support here while she is sleeping issues noted to have desaturation otherwise she is on home O2 requirement she is at high risk for further respiratory decline because of hydrostatic pulmonary edema Cards: History of of heart failure with reduced ejection fraction atrial fibrillation cardiomyopathy status post ICD noted to be bradycardic with backup pacing rate possibly inappropriate for chronotropic need. Her pressures have been low but map generally greater than 60 she has been noted to be borderline hypotensive extending well into last visit and earlier. There is no evidence at this time of end organ hypoperfusion lactate remains normal could consider low-dose dopamine as needed for increase in heart rate cardiology has been consulted for further evaluation troponin is negative at this time BNP is elevated she has evidence of cardiogenic edema on chest x-ray FEN-GI: Nothing by mouth for now patient likely has acute on chronicintestinal hemorrhage I suspect this is been more of losing over several days as opposed to a darshan gastrointestinal hemorrhage acutely. GIs been consult that she is on PPI infusion with plan for EGD. Renal: Chronic kidney failure which appears to be at her baseline continue to monitor urine output. Will likely benefit from judicious diuresis after having received 2 L crystalloid in the ED along with blood products given underlying cardiovascular status ID: although the patient is hypothermic at this time there is no clear evidence of infectious process she we have obtained broad-spectrum cultures and will institute antimicrobials if declaration of sepsis but at this point there is no clear evidence Heme/Onc: acute on chronic anemia likely secondary to GI loss. She has chronic thrombocytopenia which is stable she does not showing any evidence of coagulopathy; DVT prophylaxis in the form of SCDs. She is receiving blood products at this time for goal hemoglobin greater than 7 Endo: Glucose Monitored; checking random cortisol and TSH Integ/MSK: Skin Care per routine ICU Nursing Protocol to prevent ulcers. Lines: All lines examined without evidence of infection : Dispo: Remain in ICU to monitor blood pressure and for risk of GI hemorrhage CODE: Patient at this time is full code although she has been chronically ill for quite a while. She has a known history of breast cancer along with the cardiomyopathy and respiratory failure that was previously outlined in addition she also has a lung lesion which is highly suspicious for primary lung malignancy this has not been biopsied because she has been in such poor health it is felt that she could not tolerate therapy for this. I will have further discussion with the patient about ultimate goals of care but I think that she would benefit from dedicated palliative care consult for further discussion.
[2017-07-22] MEDS ORDERED: Ondansetron 4 MG/2 ML VIAL IVP PRN (14:24)
[2017-07-22] MEDS ORDERED: Naloxone 0.4 MG/ML INJ IVP PRN (14:24)
[2017-07-22] MEDS ORDERED: Ipratropium/Albuterol Neb 3 ML IH PRN (14:34)
[2017-07-22] MEDS ORDERED: Albuterol 2.5 MG/3 ML NEBULIZER IH PRN (14:34)
[2017-07-22] MEDS: Pantoprazole 40 MG in 0.9 % Sodium Chloride Mini Bag 100 ML IVC SCH ×2 (15:17→21:45)
[2017-07-22] MEDS ORDERED: Furosemide 20 MG/2 ML VIAL IVP ONE ×3 (16:27→23:26)
[2017-07-22 16:44] LABS: ABG Base Excess 22 mEq/L (-2 to 3); ABG HCO3 51 mEq/L (21-27); ABG Oxygen Saturation 93 % (95-98); ABG PCO2 96 mmHg (35-45); ABG PH 7.33 pH Units (7.32-7.45); ABG PO2 77 mmHg (85-104); ABG TCO2 53 mEq/L (20-26); Blood Gas Modality PC/PS; Blood Gas PEEP 6 cm H2O; Blood Gas Pressure Support 12 cm H2O
[2017-07-22 18:58] LABS: Triiodothyronine (T3) Free 1.31 pg/mL (2.50-3.90)
[2017-07-22] MEDS ORDERED: Levothyroxine Sodium 200 MCG VIAL IVP ONE (20:13)
[2017-07-22] MEDS ORDERED: OXYCODONE Oral CONC 10 MG/0.5 ML ORAL.SYG SL PRN (21:44)
[2017-07-23 00:08] LABS: Adenovirus Not Detected (Not Detect); Bordetella Pertussis Not Detected (Not Detect); Chlamydophila pneumoniae Not Detected (Not Detect); Coronavirus 229E Not Detected (Not Detect); Coronavirus HKU1 Not Detected (Not Detect); Coronavirus NL63 Not Detected (Not Detect); Coronavirus OC43 Not Detected (Not Detect); Human Metapneumovirus Not Detected (Not Detect); Human Rhinovirus/Enterovirus Not Detected (Not Detect); Influenza A Subtype 2009 H1 Not Detected (Not Detect); Influenza A Untypeable Not Detected (Not Detect); Influenza B ***DETECTED*** (Not Detect); Mycoplasma pneumoniae Not Detected (Not Detect); Parainfluenza Virus 1 Not Detected (Not Detect); Parainfluenza Virus 2 Not Detected (Not Detect); Parainfluenza Virus 3 Not Detected (Not Detect); Parainfluenza Virus 4 Not Detected (Not Detect); Respiratory Syncytial Virus Not Detected (Not Detect)
[2017-07-23 00:31] LABS: Hematocrit 23.9 % (35.3-44.9); Hemoglobin 7.3 g/dL (11.5-15.4)
[2017-07-23] MEDS ORDERED: 0.9 % Sodium Chloride 250 ML ONE (02:30)
[2017-07-23] MEDS: Pantoprazole 40 MG in 0.9 % Sodium Chloride Mini Bag 100 ML IVC SCH ×4 (03:32→19:35)
--- NOTE | 2017-07-23 05:58 | Electrocardiograph Report ---
[facility] [employer] Test Date: 2017-07-22 Pat Name: Janay Higginbotham Department: 102 Room: 03 Gender: F Electronics Research Engineer: Charisse : 1940 Requested By: Johanna Bolton Order Number: [id number] Reading MD: Ajay Taylor Measurements Intervals [place] Rate: 49 P: CT: 0 QRS: -79 QRSD: 187 T: 92 QT: 492 QTc: 463 Interpretive Statements ELECTRONIC VENTRICULAR PACEMAKER ABNORMAL RHYTHM ECG Electronically Signed On 07-23-2017 5:57:03 EDT by Ajay Taylor
[2017-07-23 06:55] LABS: Basophils % 0.3 %; Eosinophils % 0.5 %; Hematocrit 26.6 % (35.3-44.9); Hemoglobin 8.3 g/dL (11.5-15.4); Immature Platelets 3.1 % (1.1-6.1); Lymphocytes # 0.4 K/mcL (0.6-4.6); Lymphocytes % 10.2 %; Mean Corpuscular HGB Conc 31.2 g/dL (31.6-35.5); Mean Corpuscular Hemoglobin 29.4 pg (28.0-33.3); Mean Corpuscular Volume 94.3 fL (83.0-100.0); Mean Platelet Volume 10.6 fL (9.4-12.4); Monocytes # 0.3 K/mcL (0.0-1.3); Monocytes % 7.1 %; Neutrophils # 3.1 K/mcL (1.6-8.9); Nucleated Red Blood Cells 0.5 /100 WBC (0); Red Blood Count 2.82 M/mcL (3.82-4.97); Red Cell Distribution Width 17.3 % (11.5-14.5); Segmented Neutrophils % 79.9 %
[2017-07-23 06:56] LABS: Platelet Count 66 K/mcL (140-400)
--- NOTE | 2017-07-23 07:47 | Pulmonology Consult Note ---
Date of Encounter: 07/23/17 Time of Encounter: 07:46 Assessment and Plan (1) Myxedema coma Current Visit: Yes Status: Acute (2) Bradycardia Current Visit: Yes Status: Acute (3) Hypotension Current Visit: Yes Status: Acute Qualifiers: Hypotension type: other hypotension type Qualified Code(s): I95.89 - Other hypotension (4) Hypothermia Current Visit: Yes Status: Acute Qualifiers: Encounter type: initial encounter Qualified Code(s): T68.XXXA - Hypothermia , initial encounter (5) Acute blood loss anemia Current Visit: Yes Status: Acute (6) Influenza B Current Visit: Yes Status: Acute (7) Congestive heart failure Current Visit: Yes Status: Chronic (8) Atrial fibrillation Current Visit: No Status: Chronic Qualifiers: Atrial fibrillation type: paroxysmal Qualified Code(s): I48.0 - Paroxysmal atrial fibrillation (9) COPD (chronic obstructive pulmonary disease) Current Visit: No Status: Chronic Qualifiers: COPD type: chronic bronchitis Chronic bronchitis type: mucopurulent Qualified Code(s): J41.1 - Mucopurulent chronic bronchitis (10) Primary invasive malignant neoplasm of left female breast Current Visit: No Status: Acute (11) Type 2 diabetes mellitus Current Visit: No Status: Chronic Qualifiers: Diabetes mellitus office support associate insulin use: without mcfp use Diabetes mellitus complication status: with circulatory complication Diabetes mellitus complication detail: with other circulatory complications Qualified Code(s): E11.59 - Type 2 diabetes mellitus with other circulatory complications (12) DVT prophylaxis Current Visit: Yes Status: Acute Past Med Surg Social Fam HX - Past Medical History Medical history: asthma, atrial fibrillation, cancer, cardiomyopathy, CHF, COPD , GERD, GI bleed, renal disease, thyroid disease, valvular heart disease Psychiatric history: anxiety, depression - Past Surgical History Surgical History: appendectomy, breast surgery, cancer surgery, heart valve replacement, hysterectomy, pacemaker/AICD - Social History Smoking Status: Former smoker Smokeless Tobacco Status: No Alcohol use: none Drug use: none - Family History Mother Family Member Ethnicity: Non- Living Status: Hx Family Cardiac Disorders: No Hx Family Respiratory Disorders: No Hx Family Cancer: Yes Hx Family GI Disorders: No Hx Family Endocrine Disorder: No Hx Family Neuromuscular Disorders: No Hx Family Neurologic Disorders: No Hx Family HEENT Disorders: No Hx Family Autoimmune Disorders: No Father Living Status: Hx Family Cardiac Disorders: Yes Hx Family Respiratory Disorders: No Hx Family Cancer: Yes Hx Family GI Disorders: No Hx Family Endocrine Disorder: No Hx Family Neuromuscular Disorders: No Hx Family Neurologic Disorders: No Hx Family HEENT Disorders: No Hx Family Autoimmune Disorders: No Medications and Allergies Allopurinol [Zyloprim 300 MG] 300 mg PO DAILY 01/12/16 [History] Calcium Carbonate [Calcium] 1,500 mg PO BID 04/22/16 [History] Oxygen 4 l NS AD 04/22/16 [History] Folic Acid 1 mg PO DAILY 05/28/16 [History] Ranitidine HCl [Acid Seal Delivery Vehicle Officer] 150 mg PO BID 07/12/16 [History] Albuterol Sulfate [Ventolin Hfa] 1 - 2 puff IH Q4-6H PRN 10/14/16 [History] Umeclidinium [place] [Incruse Ellipta] 1 puff IH QPM 10/14/16 [History] Levothyroxine Sodium [Levoxyl] 75 mcg PO QAM 06/03/17 [History] Sacubitril/Valsartan 24/26 mg [Entresto 24 mg-26 mg Tablet] 1 tab PO BID [History] Fluticasone/Vilanterol [Breo Ellipta 200-25 Mcg INH] 1 each IH BID 06/16/17 [ History] Ondansetron ODT [Zofran ODT] 4 mg SL Q8H PRN 06/16/17 [History] Amiodarone [Cordarone] 200 mg PO DAILY #0 06/19/17 [Rx] Furosemide [Lasix] 40 mg PO BID tablet 06/19/17 [Rx] Ciprofloxacin OPTH Soln [Ciloxan OPTH Soln] 2 drop BOTH EYES Q4H 07/08/17 [ History] FLUoxetine HCl [Prozac] 20 mg PO HS 07/08/17 [History] Ferrous Gluconate 324 mg PO 1200 07/08/17 [History] Ropinirole HCl [Requip] 4 mg PO HS 07/09/17 [History] ALPRAZolam [Xanax 0.25 MG Tablet] 0.25 mg PO HS 5 Days #5 tablet 07/11/17 [Rx] Hydrocodone/Acetaminophen [Hydrocodon-Acetaminophen 5-325] 1 each PO Q6H PRN 5 Days #10 tablet 07/11/17 [Rx] Omeprazole [PriLOSEC] 40 mg PO BID capsule. 07/11/17 [Rx] OxyCODONE/APAP 5/325 [Percocet 5/325 MG] 1 each PO Q6HR PRN 5 Days #10 tablet [Rx] Sucralfate [Carafate] 1 gm PO QIDAC tablet 07/11/17 [Rx] cephALEXin [Keflex] 500 mg PO BID 07/22/17 [History] 3 Allergy/AdvReac Type Severity Reaction Status Date / Time Penicillins Allergy Hives Verified 07/22/17 09:43 Sulfa (Sulfonamide Allergy Hives Verified 07/22/17 09:43 Antibiotics) gabapentin AdvReac Hallucinati Verified 07/22/17 09:43 ng Oxycodone [From Percocet] AdvReac Hallucinati Verified 07/22/17 09:43 ng All Systems: The remainder of the systems were reviewed and are negative Physical Examination Vital Signs: Vital Signs, Last 4 Hours Temp Pulse Resp BP Pulse Ox 07/23/17 06:00 49 16 101/48 100 07/23/17 05:53 97 F L 50 18 86/51 100 07/23/17 05:00 51 14 92/54 100 07/23/17 04:00 49 11 90/48 100 07/23/17 03:59 96.6 F L Results - Laboratory Findings CBC and BMP: 07/23/17 06:45 07/22/17 11:33 ABG ABG pH 7.33 pH Units (7.32-7.45) 07/22/17 16:39 ABG pCO2 96 mmHg (35-45) H* 07/22/17 16:39 ABG pO2 77 mmHg (85-104) L 07/22/17 16:39 ABG O2 Saturation 93 % (95-98) L 07/22/17 16:39 PT/INR, D-dimer PT 11.1 Seconds (9.4-12.1) 07/22/17 11:34 Abnormal lab findings: Abnormal lab results WBC 3.9 K/mcL (4.3-11.1) L 07/23/17 06:45 RBC 2.82 M/mcL (3.82-4.97) L 07/23/17 06:45 Hgb 8.3 g/dL (11.5-15.4) L 07/23/17 06:45 Hct 26.6 % (35.3-44.9) L 07/23/17 06:45 MCHC 31.2 g/dL (31.6-35.5) L 07/23/17 06:45 RDW 17.3 % (11.5-14.5) H 07/23/17 06:45 Plt Count 66 K/mcL (140-400) L 07/23/17 06:45 Lymphocytes # 0.4 K/mcL (0.6-4.6) L 07/23/17 06:45 Nucleated RBCs/100 WBC 0.5 /100 WBC (0) H 07/23/17 06:45 APTT 43.5 Seconds (26.0-36.0) H 07/22/17 11:34 ABG pCO2 96 mmHg (35-45) H* 07/22/17 16:39 ABG pO2 77 mmHg (85-104) L 07/22/17 16:39 ABG HCO3 51 mEq/L (21-27) H 07/22/17 16:39 ABG Total CO2 53 mEq/L (20-26) H 07/22/17 16:39 ABG O2 Saturation 93 % (95-98) L 07/22/17 16:39 ABG Base Excess 22 mEq/L (-2 to 3) H 07/22/17 16:39 Chloride 95 mEq/L (98-107) L 07/22/17 11:33 Carbon Dioxide > 45 mEq/L (23-29) H* 07/22/17 11:33 BUN 34 mg/dL (8-23) H 07/22/17 11:33 Creatinine 1.51 mg/dL (0.60-1.20) H 07/22/17 11:33 Est GFR ( Amer) 40 (> 60) L 07/22/17 11:33 Est GFR (Non-Af Amer) 33 (> 60) L 07/22/17 11:33 POC Glucose 113 mg/dL (58-89) H 07/23/17 00:01 Calculated Osmolality 307 (280-300) H 07/22/17 11:33 Phosphorus 2.5 mg/dL (2.7-4.5) L 07/22/17 11:33 AST 11 Units/L (13-39) L 07/22/17 11:33 Serum Total Protein 4.8 g/dL (6.4-8.9) L 07/22/17 11:33 Albumin 2.6 g/dL (3.5-5.7) L 07/22/17 11:33 Globulin 2.2 g/dL (2.4-3.5) L 07/22/17 11:33 TSH 48.410 mcIU/mL (0.340-5.600) H 07/22/17 11:33 Free T3 1.31 pg/mL (2.50-3.90) L 07/22/17 18:12 Influenza Type B (PCR) DETECTED (Not Detect) A 07/22/17 23:06 - Clinical Findings Intake & Output: Intake & Output 07/22/17 07/22/17 07/23/17 15:59 23:59 07:59 Intake Total 300 / 1300 395 / 395 384 / 384 Output Total 1400 / 1400 350 / 350 Balance 300 / 1300 -1005 / -1005 34 / 34 Weight 82.4 kg 82.9 kg Consult Discharge Plan - Plan Referrals: Francisco Melgar Jr [Primary Care Provider] -
[2017-07-23] MEDS: Hydrocortisone Sodium Succ 100 MG/2 ML VIAL IVP SCH ×2 (07:59→17:07)
[2017-07-23 08:28] LABS: BUN/Creatinine Ratio 22 (6-26); Blood Urea Nitrogen 30 mg/dL (8-23); Calcium 8.2 mg/dL (8.6-10.3); Carbon Dioxide > 45 mEq/L (23-29); Chloride 96 mEq/L (98-107); Glucose 77 mg/dL (70-105); Magnesium 1.8 mg/dL (1.6-2.6); Osmolality,Calculated 305 (280-300); Phosphorous 2.9 mg/dL (2.7-4.5); Potassium 3.5 mEq/L (3.5-5.1); Sodium 145 mEq/L (136-145); eGFR For African Americans 44 (> 60); eGFR For Non-African Americans 37 (> 60)
[2017-07-23] MEDS ORDERED: Albuterol 2.5 MG/3 ML NEBULIZER IH PRN (09:07)
[2017-07-23] MEDS: Levothyroxine Sodium 100 MCG VIAL IVP SCH (09:21)
[2017-07-23] MEDS: Oseltamivir 6 MG/ML UDC PO SCH (09:31)
[2017-07-23 11:04] LABS: Acinetobacter baumannii by PCR Not Detected (Not Detect); Candida albicans by PCR Not Detected (Not Detect); Candida glabrata by PCR Not Detected (Not Detect); Candida krusei by PCR Not Detected (Not Detect); Candida parapsilosis by PCR Not Detected (Not Detect); Candida tropicalis by PCR Not Detected (Not Detect); Enterococcus by PCR Not Detected (Not Detect); Escherichia coli by PCR Not Detected (Not Detect); Klebsiella oxytoca by PCR Not Detected (Not Detect); Klebsiella pneumoniae by PCR Not Detected (Not Detect); Pseudomonas aeruginosa by PCR Not Detected (Not Detect); Serratia marcescens by PCR Not Detected (Not Detect); Staphylococcus aureus by PCR Not Detected (Not Detect); Streptococcus agalactiae(B)PCR Not Detected (Not Detect); Streptococcus by PCR Not Detected (Not Detect); Streptococcus pneumoniae PCR Not Detected (Not Detect); Streptococcus pyogenes (A) PCR Not Detected (Not Detect); blaKPC Carbapenem-Resist Gene Not Detected (Not Detect); mecA Methicillin-Resist Gene ***DETECTED*** (Not Detect); vanA/B Vancomycin-Resist Genes Not Detected (Not Detect)
[2017-07-23] MEDS: Ipratropium/Albuterol Neb 3 ML IH SCH ×3 (11:15→21:59)
--- NOTE | 2017-07-23 11:20 | Event Note ---
Date of Encounter: 07/23/17 Time of Encounter: 10:00 - Cardiology Event Note Cardiology consult for inpatient device check only. Confirmed with Pulm. team. Device check completed this morning due to concern of bradycardia--HR 50's. Hx of single chamber medtonic ICD, lower limit set at 50. Good battery life, sensing/impedance within safety margin Ongoing optivol since 2016. No arrhythmias noted. HR 50's consistent with hx of single lead ICD. Reviewed device check with Dr. Justin.
--- NOTE | 2017-07-23 11:57 | Pulmonology Progress Note ---
<AditiFreddyCarlos W - Last Filed: 07/23/17 14:06> Date of Encounter: 07/23/17 Objective PUL Vital signs: Last Vital Signs Temp 97.5 F L 07/23/17 11:56 Pulse 57 07/23/17 14:00 Resp 18 07/23/17 14:00 BP 97/52 07/23/17 14:00 Pulse Ox 100 07/23/17 14:00 Results - Laboratory Findings CBC and BMP: 07/23/17 06:45 07/23/17 06:45 ABG ABG pH 7.33 pH Units (7.32-7.45) 07/22/17 16:39 ABG pCO2 96 mmHg (35-45) H* 07/22/17 16:39 ABG pO2 77 mmHg (85-104) L 07/22/17 16:39 ABG O2 Saturation 93 % (95-98) L 07/22/17 16:39 PT/INR, D-dimer PT 11.1 Seconds (9.4-12.1) 07/22/17 11:34 Abnormal lab findings: Abnormal lab results WBC 3.9 K/mcL (4.3-11.1) L 07/23/17 06:45 RBC 2.82 M/mcL (3.82-4.97) L 07/23/17 06:45 Hgb 8.3 g/dL (11.5-15.4) L 07/23/17 06:45 Hct 26.6 % (35.3-44.9) L 07/23/17 06:45 MCHC 31.2 g/dL (31.6-35.5) L 07/23/17 06:45 RDW 17.3 % (11.5-14.5) H 07/23/17 06:45 Plt Count 66 K/mcL (140-400) L 07/23/17 06:45 Lymphocytes # 0.4 K/mcL (0.6-4.6) L 07/23/17 06:45 Nucleated RBCs/100 WBC 0.5 /100 WBC (0) H 07/23/17 06:45 APTT 43.5 Seconds (26.0-36.0) H 07/22/17 11:34 ABG pCO2 96 mmHg (35-45) H* 07/22/17 16:39 ABG pO2 77 mmHg (85-104) L 07/22/17 16:39 ABG HCO3 51 mEq/L (21-27) H 07/22/17 16:39 ABG Total CO2 53 mEq/L (20-26) H 07/22/17 16:39 ABG O2 Saturation 93 % (95-98) L 07/22/17 16:39 ABG Base Excess 22 mEq/L (-2 to 3) H 07/22/17 16:39 Chloride 96 mEq/L (98-107) L 07/23/17 06:45 Carbon Dioxide > 45 mEq/L (23-29) H* 07/23/17 06:45 BUN 30 mg/dL (8-23) H 07/23/17 06:45 Creatinine 1.39 mg/dL (0.60-1.20) H 07/23/17 06:45 Est GFR ( Amer) 44 (> 60) L 07/23/17 06:45 Est GFR (Non-Af Amer) 37 (> 60) L 07/23/17 06:45 POC Glucose 113 mg/dL (58-89) H 07/23/17 00:01 Calculated Osmolality 305 (280-300) H 07/23/17 06:45 Calcium 8.2 mg/dL (8.6-10.3) L 07/23/17 06:45 AST 11 Units/L (13-39) L 07/22/17 11:33 Serum Total Protein 4.8 g/dL (6.4-8.9) L 07/22/17 11:33 Albumin 2.6 g/dL (3.5-5.7) L 07/22/17 11:33 Globulin 2.2 g/dL (2.4-3.5) L 07/22/17 11:33 TSH 48.410 mcIU/mL (0.340-5.600) H 07/22/17 11:33 Free T3 1.31 pg/mL (2.50-3.90) L 07/22/17 18:12 Influenza Type B (PCR) DETECTED (Not Detect) A 07/22/17 23:06 Staphylococcus sp PCR DETECTED (Not Detect) A 07/22/17 11:33 mecA-Methicil Res Gene DETECTED (Not Detect) A 07/22/17 11:33 - Clinical Findings Intake & Output: Intake & Output 07/22/17 07/23/17 07/23/17 23:59 07:59 15:59 Intake Total 395 / 395 384 / 384 200 / 200 Output Total 1400 / 1400 550 / 550 100 / 100 Balance -1005 / -1005 -166 / -166 100 / 100 Weight 82.9 kg 83 kg Consult Discharge Plan - Plan Referrals: Francisco Melgar Jr [Primary Care Provider] - - Attending Attestation I examined this patient and my medical decision-making was reviewed with the Resident Physician. I agree with the documented findings, disposition and treatment plan as described except to the extent set forth below. We independently had [id number] contact with the patient I spent 32min of Critical Care time with this patient. It involved decision making of high complexity to assess, manipulate, and support vital organ system failure and/or to prevent further life threatening deterioration of the patient' s condition. The time involved in the performance of separately reportable procedures was not counted toward critical care time. Patient seen and examined at bedside Labs, radiology, chart personally reviewed. Management was reviewed during multidisciplinary critical care rounds. BUSPERSON: Mild but improving lethargy she is fully able to answer questions and follow commands Pulm: Acute on chronic respiratory failure secondary to hypoventilation underlying hydrostatic pulmonary edema advanced COPD continue BiPAP support for most of the day and during the night Cards: Borderline hypotension and bradycardia currently in paced rhythm I suspect bradycardia related to thyroxine deficiency. Cardiology consulted for pacemaker interrogation. She denies to be volume overloaded and we will diuresis as tolerated by blood pressure and kidney function FEN-GI: Nothing by mouth for now she has evidence of acute on chronic gastrointestinal hemorrhage on proton pump inhibitor infusion. GI following plan for endoscopy when medically stable Renal: Chronic kidney failure which is stable urine output is monitored ID: Influenza B on antiviral treatment Heme/Onc: SCDs for DVT prophylaxis; acute on chronic blood loss anemia status post 2 units PRBCs yesterday with appropriate incrementation to suggests more of a slow bleed been severe active bleeding. Endo: Myxedema coma she has been given IV thyroxine replacement with prior administration of stress dose hydrocortisone which we will continue for one day this is shown improvement overall in hypothermia bradycardia and mental status she will need IV replacement for several days Integ/MSK: Skin Care per routine ICU Nursing Protocol to prevent ulcers. Lines: All lines examined without evidence of infection : Dispo: Remain in ICU CODE: Full Code I discussed with the patient at bedside her overall goals of care her overall prognosis in my opinion is very poor given advanced age severe chronic disease and critical illness along with a history of breast cancer and possibly in fact suspected primary lung malignancy. She has agreed to palliative care consultation <Danny Burch - Last Filed: 07/27/17 07:13> Date of Encounter: 07/27/17 Time of Encounter: 07:45 Assessment and Plan (1) Myxedema coma Current Visit: Yes Status: Acute Hypothyroid on 75mcg Synthroid at home; takes concurrently with PO Iron which may decrease absorption -- admitted with hypotension, bradycardia, hypothermia, and TSH of 48 -- Gave loading dose of Levothyroxine IV and cont daily IV dosing -- Per discussion with pharmacist, considering de-escalation in dose in next 1- 2 days -- Giving stress dose steroids (hydrocortisone) -- Monitoring vitals closely; HR still remains in 50s, BP is modestly improved this AM, and Temp is improving (2) Bradycardia Current Visit: Yes Status: Acute Does have ICD with kat threshold set to 50+ bpm -- most likely due to hypothyroid / MC state -- cont to monitor; expect improvement with IV Synthroid -- Cardio does not feel kat rescue level needs re-calibrating at this time (3) Hypotension Current Visit: Yes Status: Acute Likely secondary to hypothyroid state + anemia -- doubt volume depletion as BP lacked significant improvement with fluid resuscitation -- BP continues to modestly improve after 3U pRBCs -- cont to monitor Qualifiers: Hypotension type: other hypotension type Qualified Code(s): I95.89 - Other hypotension (4) Hypothermia Current Visit: Yes Status: Acute Likely due to myxedema coma and anemia; cont warmer for time being and cont to monitor. -- Temp improving this AM Qualifiers: Encounter type: initial encounter Qualified Code(s): T68.XXXA - Hypothermia , initial encounter (5) Acute blood loss anemia Current Visit: Yes Status: Acute Does have chronic anemia likely due to chronic disease and perhaps slow GI loss ; suspect GI etiology for acute loss -- GI consulted by ED and onboard -- recent history of acute on chronic anemia with multiple endoscopies + blood transfusion [see Recent GI History below] -- likely multifactorial anemia including acute blood loss and anemia of chronic disease -- transfused 3U pRBCs so far with most recent Hgb at 8.3 (up from 5.9) -- recheck H/H at 1400 and transfuse as needed -- pt on protonix infusion for time-being -- GI consulted and initially planned EGD this AM, however, with new findings, may defer EGD as GI bleed may be closely competing secondary concern Recent GI History Procedures: EGD 07/10/17 Dr. Rojo: severe reflux esophagitis and non-bleeding angioectasia in duodenum and jejunum. Pathology report showed acute ulcerative esophagitis negative for dysplasia. Colonoscopy 07/10/17 Dr. Rojo: Two 5mm non-bleeding polyps in desending colon. Pathology report showed tubular adenoma negative for high grade dysplasia. EGD 06/03/2017 Dr. Zelaya: LA Grade A esophagitis, chronic gastritis, single nonbleeding AVM. Colonoscopy 06/04/2016 Dr. Rojo: Single nonbleeding AVM treated with APC, internal hemorrhoids. Recommended capsule endoscopy-not completed. EGD 06/04/2016 Dr. Rojo: Small hiatal hernia, single red spot with no bleeding in duodenum, questionable AVM, treated with APC. Colonoscopy 08/13/2015 Dr. Rojo: Single nonbleeding AVM treated with APC, diverticulosis, internal hemorrhoids. Small bowel enteroscopy 08/13/2015 Dr. Rojo: Three nonbleeding AVM in duodenum and one in stomach, treated with APC. EGD 07/15/2015 Dr. Sweet: Small hiatus hernia, two nonbleeding AVM treated with APC. NSAIDs: None Anticoagulation: None (6) Influenza B Current Visit: Yes Status: Acute On Tamiflu (today is Day 1 of 5) -- droplet precautions (7) Atrial fibrillation Current Visit: No Status: Chronic ICD as above, bradycardic at present. Anticoagulants contraindicated at this time due to acute anemia. Qualifiers: Atrial fibrillation type: paroxysmal Qualified Code(s): I48.0 - Paroxysmal atrial fibrillation (8) COPD (chronic obstructive pulmonary disease) Current Visit: No Status: Chronic Does not appear to have any acute element of COPD -- Supplement O2 as needed to sustain SpO2 >88%. -- in light of Influenza B, will schedule duonebs and keep albuterol as PRN -- BiPAP at night Qualifiers: COPD type: chronic bronchitis Chronic bronchitis type: mucopurulent Qualified Code(s): J41.1 - Mucopurulent chronic bronchitis (9) Primary invasive malignant neoplasm of left female breast Current Visit: No Status: Chronic Sees oncology and was sent to [facility] by oncology clinic for acutely low Hgb ( 5.9 g/dL) (10) DVT prophylaxis Current Visit: Yes Status: Chronic SCDs Subjective Principal diagnosis: Myxedema Coma / Anemia / Hypotension / Hypothermia Interval history: Pt states feels same as yesterday. Still feels fatigued. Is alert and oriented. Objective PUL Vital signs: Last Vital Signs Temp 97.6 F 07/23/17 07:49 Pulse 50 07/23/17 09:00 Resp 18 07/23/17 11:17 BP 89/45 07/23/17 09:00 Pulse Ox 100 07/23/17 11:17 General appearance: no acute distress, alert Eyes: nonicteric ENT: oropharynx moist Effort: normal Auscultation: bilateral: clear Cardiovascular: other (Rate in 50s and regular, no murmurs or gallops) Gastrointestinal: soft, non-tender, non-distended Integumentary: normal Extremities: no cyanosis, no edema normal mental status mood appropriate, affect normal Results - Laboratory Findings CBC and BMP: 07/27/17 05:55 07/27/17 05:55 ABG ABG pH 7.33 pH Units (7.32-7.45) 07/22/17 16:39 ABG pCO2 96 mmHg (35-45) H* 07/22/17 16:39 ABG pO2 77 mmHg (85-104) L 07/22/17 16:39 ABG O2 Saturation 93 % (95-98) L 07/22/17 16:39 PT/INR, D-dimer PT 11.1 Seconds (9.4-12.1) 07/22/17 11:34 Abnormal lab findings: Abnormal lab results WBC 3.9 K/mcL (4.3-11.1) L 07/23/17 06:45 RBC 2.82 M/mcL (3.82-4.97) L 07/23/17 06:45 Hgb 8.3 g/dL (11.5-15.4) L 07/23/17 06:45 Hct 26.6 % (35.3-44.9) L 07/23/17 06:45 MCHC 31.2 g/dL (31.6-35.5) L 07/23/17 06:45 RDW 17.3 % (11.5-14.5) H 07/23/17 06:45 Plt Count 66 K/mcL (140-400) L 07/23/17 06:45 Lymphocytes # 0.4 K/mcL (0.6-4.6) L 07/23/17 06:45 Nucleated RBCs/100 WBC 0.5 /100 WBC (0) H 07/23/17 06:45 APTT 43.5 Seconds (26.0-36.0) H 07/22/17 11:34 ABG pCO2 96 mmHg (35-45) H* 07/22/17 16:39 ABG pO2 77 mmHg (85-104) L 07/22/17 16:39 ABG HCO3 51 mEq/L (21-27) H 07/22/17 16:39 ABG Total CO2 53 mEq/L (20-26) H 07/22/17 16:39 ABG O2 Saturation 93 % (95-98) L 07/22/17 16:39 ABG Base Excess 22 mEq/L (-2 to 3) H 07/22/17 16:39 Chloride 96 mEq/L (98-107) L 07/23/17 06:45 Carbon Dioxide > 45 mEq/L (23-29) H* 07/23/17 06:45 BUN 30 mg/dL (8-23) H 07/23/17 06:45 Creatinine 1.39 mg/dL (0.60-1.20) H 07/23/17 06:45 Est GFR ( Amer) 44 (> 60) L 07/23/17 06:45 Est GFR (Non-Af Amer) 37 (> 60) L 07/23/17 06:45 POC Glucose 113 mg/dL (58-89) H 07/23/17 00:01 Calculated Osmolality 305 (280-300) H 07/23/17 06:45 Calcium 8.2 mg/dL (8.6-10.3) L 07/23/17 06:45 AST 11 Units/L (13-39) L 07/22/17 11:33 Serum Total Protein 4.8 g/dL (6.4-8.9) L 07/22/17 11:33 Albumin 2.6 g/dL (3.5-5.7) L 07/22/17 11:33 Globulin 2.2 g/dL (2.4-3.5) L 07/22/17 11:33 TSH 48.410 mcIU/mL (0.340-5.600) H 07/22/17 11:33 Free T3 1.31 pg/mL (2.50-3.90) L 07/22/17 18:12 Influenza Type B (PCR) DETECTED (Not Detect) A 07/22/17 23:06 Staphylococcus sp PCR DETECTED (Not Detect) A 07/22/17 11:33 mecA-Methicil Res Gene DETECTED (Not Detect) A 07/22/17 11:33 - Clinical Findings Intake & Output: Intake & Output 07/22/17 07/23/17 07/23/17 23:59 07:59 15:59 Intake Total 395 / 395 384 / 384 100 / 100 Output Total 1400 / 1400 550 / 550 Balance -1005 / -1005 -166 / -166 100 / 100 Weight 82.9 kg 83 kg
--- NOTE | 2017-07-23 13:52 | Palliative - Consult Note ---
Date of Encounter: 07/23/17 Time of Encounter: 13:48 - Assessment and Plan (1) Goals of care, counseling/discussion Current Visit: Yes Status: Acute Assessment and plan: Had extensive conversation with patient. She does have a designated power of leather grader she stated that at this time, she would like to remain full code and is okay with short-term intubation. She has expressed her goals of care to her power of leather grader. (2) Acute blood loss anemia Current Visit: Yes Status: Acute Assessment and plan: Acute blood loss anemia secondary to G.I. bleed (3) GI bleed Current Visit: Yes Status: Acute Assessment and plan: History of multiple G.I. bleed due to AVM Qualifiers: GI bleed type/associated pathology: unspecified gastrointestinal hemorrhage type Qualified Code(s): K92.2 - Gastrointestinal hemorrhage, unspecified (4) Influenza B Current Visit: Yes Status: Acute Assessment and plan: Per primary service (5) History of breast cancer Current Visit: No Status: Acute Assessment and plan: Of stage to breast cancer with lumpectomy in 2006, completed 4 cycles of chemoradiation (6) Type 2 diabetes mellitus Current Visit: No Status: Chronic Qualifiers: Diabetes mellitus retirement insulin use: without retirement use Diabetes mellitus complication status: with circulatory complication Diabetes mellitus complication detail: with other circulatory complications Qualified Code(s): E11.59 - Type 2 diabetes mellitus with other circulatory complications (7) COPD (chronic obstructive pulmonary disease) Current Visit: Yes Status: Chronic Qualifiers: COPD type: emphysema Emphysema type: unspecified Qualified Code(s): J43.9 - Emphysema, unspecified Palliative-CN HPI - Data of Consult Patient: new to practice Consult date: 07/23/17 Requesting Physician: Carlos Pennington MD Primary Care Provider: Francisco Melgar Jr - Consult Narrative Palliative Care/Comfort Measures: Palliative care Reason for consult: discuss code status History of present illness: Ms. Higginbotham is a 76 year old female with past medical history of multiple G.I. bleed due to AVM, CHF, COPD, DM 2, atrial fibrillation, DVT, stage II breast cancer. She arrived to the hospital after being sent from the oncology office due to anemia. Her hemoglobin was 5.9 upon admission and she has been transfused 3 units packed red blood cells. G.I. has been consult it and is following with the patient. Plan is for EGD if she continues to show evidence of bleeding. Patient reports shortness of breath. She denies nausea, vomiting , diarrhea, chest pain. CC: Carlos Pennington MD Past Med Surg Social Fam HX - Past Medical History Medical history: asthma, atrial fibrillation, cancer, cardiomyopathy, CHF, COPD , GERD, GI bleed, renal disease, thyroid disease, valvular heart disease Psychiatric history: anxiety, depression - Past Surgical History Surgical History: appendectomy, breast surgery, cancer surgery, heart valve replacement, hysterectomy, pacemaker/AICD - Social History Smoking Status: Former smoker Smokeless Tobacco Status: No Alcohol use: none Drug use: none - Family History Mother Family Member Ethnicity: Non- Living Status: Hx Family Cardiac Disorders: No Hx Family Respiratory Disorders: No Hx Family Cancer: Yes Hx Family GI Disorders: No Hx Family Endocrine Disorder: No Hx Family Neuromuscular Disorders: No Hx Family Neurologic Disorders: No Hx Family HEENT Disorders: No Hx Family Autoimmune Disorders: No Father Living Status: Hx Family Cardiac Disorders: Yes Hx Family Respiratory Disorders: No Hx Family Cancer: Yes Hx Family GI Disorders: No Hx Family Endocrine Disorder: No Hx Family Neuromuscular Disorders: No Hx Family Neurologic Disorders: No Hx Family HEENT Disorders: No Hx Family Autoimmune Disorders: No Medications and Allergies Allopurinol [Zyloprim 300 MG] 300 mg PO DAILY 01/12/16 [History] Calcium Carbonate [Calcium] 1,500 mg PO BID 04/22/16 [History] Oxygen 4 l NS AD 04/22/16 [History] Folic Acid 1 mg PO DAILY 05/28/16 [History] Ranitidine HCl [Acid Director Speech] 150 mg PO BID 07/12/16 [History] Albuterol Sulfate [Ventolin Hfa] 1 - 2 puff IH Q4-6H PRN 10/14/16 [History] Umeclidinium Dunn [Incruse Ellipta] 1 puff IH QPM 10/14/16 [History] Levothyroxine Sodium [Levoxyl] 75 mcg PO QAM 06/03/17 [History] Sacubitril/Valsartan 24/26 mg [Entresto 24 mg-26 mg Tablet] 1 tab PO BID [History] Fluticasone/Vilanterol [Breo Ellipta 200-25 Mcg INH] 1 each IH BID 06/16/17 [ History] Ondansetron ODT [Zofran ODT] 4 mg SL Q8H PRN 06/16/17 [History] Amiodarone [Cordarone] 200 mg PO DAILY #0 06/19/17 [Rx] Furosemide [Lasix] 40 mg PO BID tablet 06/19/17 [Rx] Ciprofloxacin OPTH Soln [Ciloxan OPTH Soln] 2 drop BOTH EYES Q4H 07/08/17 [ History] FLUoxetine HCl [Prozac] 20 mg PO HS 07/08/17 [History] Ferrous Gluconate 324 mg PO 1200 07/08/17 [History] Ropinirole HCl [Requip] 4 mg PO HS 07/09/17 [History] ALPRAZolam [Xanax 0.25 MG Tablet] 0.25 mg PO HS 5 Days #5 tablet 07/11/17 [Rx] Omeprazole [PriLOSEC] 40 mg PO BID capsule. 07/11/17 [Rx] OxyCODONE/APAP 5/325 [Percocet 5/325 MG] 1 each PO Q6HR PRN 5 Days #10 tablet [Rx] Sucralfate [Carafate] 1 gm PO QIDAC tablet 07/11/17 [Rx] cephALEXin [Keflex] 500 mg PO BID 07/22/17 [History] 3 Allergy/AdvReac Type Severity Reaction Status Date / Time Penicillins Allergy Hives Verified 07/22/17 09:43 Sulfa (Sulfonamide Allergy Hives Verified 07/22/17 09:43 Antibiotics) gabapentin AdvReac Hallucinati Verified 07/22/17 09:43 ng Oxycodone [From Percocet] AdvReac Hallucinati Verified 07/22/17 09:43 ng All systems: reviewed and no additional remarkable complaints except as stated Palliative Care-Exam - Constitutional Vitals: Temp Pulse Resp BP Pulse Ox 97.5 F L 58 16 101/56 100 07/23/17 11:56 07/23/17 13:00 07/23/17 13:00 07/23/17 13:00 07/23/17 13:00 General appearance: Present: average body habitus - Head Head Exam: Present: atraumatic, normal inspection - Respiratory Additional comments: Decreased breath sounds, mild wheezing present. - Cardiovascular Cardiovascular exam: Present: RRR, +S1, +S2 - GI/Abdominal Exam GI/Abdominal exam: Present: diminished bowel sounds, soft. Absent: distended, tenderness - Extremities Exam Additional comments: +2 right upper extremity pitting edema. Various areas of bruising present on bilateral upper extremities. - Neurological Exam Neurological exam: Present: alert, oriented X3 Internal Medicine - CN: Reslt - Labs CBC & Chem 7: 07/23/17 06:45 07/23/17 06:45 Labs: Short CBC 07/23/17 07/23/17 Range/Units 00:15 06:45 WBC 3.9 L (4.3-11.1) K/mcL Hgb 7.3 L 8.3 L (11.5-15.4) g/dL Hct 23.9 L 26.6 L (35.3-44.9) % Plt Count 66 L (140-400) K/mcL Neutrophils # 3.1 (1.6-8.9) K/mcL BMP 07/23/17 06:45 Sodium 145 Potassium 3.5 Chloride 96 L Carbon Dioxide > 45 H* BUN 30 H Creatinine 1.39 H Glucose 77 Calcium 8.2 L - ABG Interpretation ABG results: ABG ABG pH 7.33 pH Units (7.32-7.45) 07/22/17 16:39 ABG pCO2 96 mmHg (35-45) H* 07/22/17 16:39 ABG pO2 77 mmHg (85-104) L 07/22/17 16:39 ABG O2 Saturation 93 % (95-98) L 07/22/17 16:39 PT/INR, D-dimer PT 11.1 Seconds (9.4-12.1) 07/22/17 11:34 Consult Discharge Plan - Plan Referrals: Francisco Melgar Jr [Primary Care Provider] - Palliative Quality Palliative Quality: Screen for Code Status: Yes, Screen for Goals of Care: Yes, Screen for Pain: Yes, If Pain Regimen Started, Initiate Bowel Regimen: Yes, Screen for Nausea/Vomitting: Yes
[2017-07-23 14:26] LABS: Hematocrit 27.4 % (35.3-44.9); Hemoglobin 8.4 g/dL (11.5-15.4)
--- NOTE | 2017-07-23 18:32 | Gastroenterology Progress Note ---
<Duy Serna - Last Filed: 07/23/17 18:55> Date of Encounter: 07/23/17 Time of Encounter: 17:20 - Assessment and plan (1) Anemia Status: Acute Assessment and plan: Patient presented to the ED form oncologist's office for evaluation of anemia with Hgb 5.9. Patient reports chronic melena due to iron supplementation. Occult blood test was positive in the ED. EGD 07/10/17 Dr. Rojo: severe reflux esophagitis and non-bleeding angioectasia in duodenum and jejunum. Pathology report showed acute ulcerative esophagitis negative for dysplasia. Colonoscopy 07/10/17 Dr. Rojo: Two 5mm non-bleeding polyps in desending colon. Pathology report showed tubular adenoma negative for high grade dysplasia. Patient was transfused 3 units of PRBCs Monitor CBC and transfuse prn HGB < 7 Continue IVF prn hypotension Continue Protonix drip NPO after midnight Anticipate EGD tomorrow if HGB continues to drop Qualifiers: Anemia type: unspecified type Qualified Code(s): D64.9 - Anemia, unspecified - Time Spent With Patient Total time spent is greater than 50% in coordination of care (as documented) at patient's floor/unit and/or counseling patient: - Subjective Interval history: Patient seen and examined. Patient reports weakness and back discomfort today due to immobility. She is tolerating clear liquid diet. Patient reports, "I just want to go home." She tested positive for Influenza B and was started on Tamiflu. Patient's HGB is stable after 3 units PRBC were transfused. EGD was postponed today due to severity of medical comorbidities. - Constitutional Vitals: Temp Pulse Resp BP Pulse Ox 97.2 F L 61 16 97/61 100 07/23/17 15:15 07/23/17 17:13 07/23/17 17:13 07/23/17 17:13 07/23/17 17:13 General appearance: Present: cooperative, A&O X 3, no acute distress, answers questions appropriately Exam: Bare hugger in place - Head Head exam: Present: atraumatic, normocephalic - Eye Eye exam: Present: normal appearance, sclera anicteric - ENT ENT exam: Present: mucous membranes moist, normal oropharynx - Neck Neck exam general surgery: Present: normal inspection, trachea midline. Absent : thyromegaly - Respiratory Respiratory exam: Present: decreased breath sounds. Absent: wheezes - Cardiovascular Cardiovascular exam: Present: RRR, +S1, +S2 - GI/Abdominal GI/Abdominal exam: Present: distended, normal bowel sounds, soft, no peritoneal signs. Absent: tenderness - Rectal Rectal exam: Present: deferred - Extremities Exam Extremities exam: Present: pedal edema, warm - Neurological Exam Neurological exam: Present: oriented X3, no focal deficits - Psychiatric Psychiatric exam: Present: normal affect, normal mood - Skin Skin exam: Present: dry, intact, normal color, warm Results - Labs CBC & Chem 7: 07/23/17 14:00 07/23/17 06:45 Labs: Last Result Calcium 8.2 mg/dL (8.6-10.3) L 07/23/17 06:45 Troponin I < 0.03 ng/mL (< 0.04) 07/22/17 11:33 Entire Visit Hgb 8.4 g/dL (11.5-15.4) L 07/23/17 14:00 Hct 27.4 % (35.3-44.9) L 07/23/17 14:00 PT 11.1 Seconds (9.4-12.1) 07/22/17 11:34 Total Bilirubin 0.4 mg/dL (0.3-1.0) 07/22/17 11:33 AST 11 Units/L (13-39) L 07/22/17 11:33 ALT 8 Units/L (7-52) 07/22/17 11:33 E. coli (PCR) Not Detected (Not Detect) 07/22/17 11:33 - ABG ABG results: ABG ABG pH 7.33 pH Units (7.32-7.45) 07/22/17 16:39 ABG pCO2 96 mmHg (35-45) H* 07/22/17 16:39 ABG pO2 77 mmHg (85-104) L 07/22/17 16:39 ABG O2 Saturation 93 % (95-98) L 07/22/17 16:39 PT/INR, D-dimer PT 11.1 Seconds (9.4-12.1) 07/22/17 11:34 - Impressions ITS Impressions Chest X-Ray 07/22/17 12:46 IMPRESSION: Features of worsening heart failure, including progressive interstitial edema and vascular congestion. Suspect small left effusion. Partially obscured right basilar opacities which could reflect a combination of atelectasis, fluid and edema, however cannot exclude superimposed airspace disease such as aspiration or pneumonia. Stable cardiomegaly. D/ / Murali Saeed / Murali Saeed Interpreting Provider: Murali Saeed - VTE Documentation of Mechanical Device: Intermittent pneumatic compression device Consult Discharge Plan - Plan Instructions: Anemia (GEN) Additional Instructions: Follow-up with cancer Center according to your appointments Referrals: Francisco Melgar Jr [Primary Care Provider] - (In 1-2 weeks) Ninfa Rojo MD [Partnered Physician] - (In 2-3 weeks chronic anemia) Prescriptions: ALPRAZolam [Xanax 0.25 MG Tablet] 0.25 mg PO HS 5 Days #5 tablet <Charly Zelaya - Last Filed: 08/11/17 07:46> Date of Encounter: 07/23/17 - Time Spent With Patient Total time spent is greater than 50% in coordination of care (as documented) at patient's floor/unit and/or counseling patient: - Constitutional Vitals: Temp Pulse Resp BP Pulse Ox 97.4 F L 58 18 113/54 97 07/28/17 07:00 07/28/17 07:00 07/28/17 15:51 07/28/17 07:00 07/28/17 15:51 Results - Labs CBC & Chem 7: 07/28/17 04:00 07/28/17 04:00 Labs: Last Result Calcium 8.8 mg/dL (8.6-10.3) 07/28/17 04:00 Troponin I < 0.03 ng/mL (< 0.04) 07/22/17 11:33 Entire Visit Hgb 8.6 g/dL (11.5-15.4) L 07/28/17 04:00 Hct 29.0 % (35.3-44.9) L 07/28/17 04:00 PT 11.1 Seconds (9.4-12.1) 07/22/17 11:34 Total Bilirubin 0.4 mg/dL (0.3-1.0) 07/22/17 11:33 AST 11 Units/L (13-39) L 07/22/17 11:33 ALT 8 Units/L (7-52) 07/22/17 11:33 E. coli (PCR) Not Detected (Not Detect) 07/22/17 11:33 - ABG ABG results: ABG ABG pH 7.33 pH Units (7.32-7.45) 07/28/17 11:11 ABG pCO2 85 mmHg (35-45) H* 07/28/17 11:11 ABG pO2 74 mmHg (85-104) L 07/28/17 11:11 ABG O2 Saturation 92 % (95-98) L 07/28/17 11:11 PT/INR, D-dimer PT 11.1 Seconds (9.4-12.1) 07/22/17 11:34 - Attending Attestation Ms. Cheek is a is a pleasant 77-year-old white female who was in the ICU has severe comorbid problems and is very high risk for endoscopy will reassess him for in the morning tomorrow I examined this patient and my medical decision-making was reviewed with the Resident Physician. I agree with the documented findings, disposition and treatment plan as described except to the extent set forth below.
[2017-07-24] MEDS: Hydrocortisone Sodium Succ 100 MG/2 ML VIAL IVP SCH ×2 (00:07→07:44)
[2017-07-24] MEDS: Pantoprazole 40 MG in 0.9 % Sodium Chloride Mini Bag 100 ML IVC SCH ×4 (01:30→12:53)
[2017-07-24] MEDS: Ipratropium/Albuterol Neb 3 ML IH SCH ×4 (03:40→21:23)
[2017-07-24 04:29] LABS: Hematocrit 26.8 % (35.3-44.9); Hemoglobin 8.2 g/dL (11.5-15.4); Mean Corpuscular HGB Conc 30.6 g/dL (31.6-35.5); Mean Corpuscular Hemoglobin 28.7 pg (28.0-33.3); Mean Corpuscular Volume 93.7 fL (83.0-100.0); Red Blood Count 2.86 M/mcL (3.82-4.97)
[2017-07-24 04:31] LABS: Immature Granulocytes % 2.2 % (0-4); Immature Platelets 3.7 % (1.1-6.1); Lymphocytes # 0.1 K/mcL (0.6-4.6); Lymphocytes % 2.5 %; Mean Platelet Volume 11.3 fL (9.4-12.4); Monocytes % 0.9 %; Nucleated Red Blood Cells 0.9 /100 WBC (0); Red Cell Distribution Width 17.2 % (11.5-14.5); Segmented Neutrophils % 94.4 %
[2017-07-24 04:33] LABS: Calcium 8.8 mg/dL (8.6-10.3); Potassium 3.7 mEq/L (3.5-5.1)
[2017-07-24 04:35] LABS: Neutrophils # 4.3 K/mcL (1.6-8.9)
[2017-07-24 04:36] LABS: Platelet Count 78 K/mcL (140-400)
[2017-07-24 05:00] LABS: Anisocytosis 1+ (Not Present); Platelet Estimate Decreased (Normal)
[2017-07-24 05:01] LABS: Hypochromasia Present (Not Present); Polychromasia 1+ (Not Present)
[2017-07-24] MEDS ORDERED: Aminoglycoside Consult 1 EACH MC ONE (07:38)
[2017-07-24] MEDS: Levothyroxine Sodium 100 MCG VIAL IVP SCH (07:44)
[2017-07-24] MEDS ORDERED: *HR* Dextrose 50 % in Water (Syg) 50 ML SYRINGE IVP PRN (08:15)
[2017-07-24] MEDS ORDERED: D5% in Water 1,000 ML IVC PRN (08:15)
[2017-07-24] MEDS ORDERED: Dextrose Gel 15 GM/37.5 ML TUBE PO PRN ×2 (08:15)
--- NOTE | 2017-07-24 08:27 | Pulmonology Progress Note ---
<NickcucaCarlos santiago W - Last Filed: 07/24/17 10:55> Date of Encounter: 07/24/17 Time of Encounter: 10:56 Objective PUL Vital signs: Last Vital Signs Temp 98.7 F 07/24/17 08:00 Pulse 64 07/24/17 10:00 Resp 18 07/24/17 10:00 BP 88/45 07/24/17 10:00 Pulse Ox 100 07/24/17 10:00 Results - Laboratory Findings CBC and BMP: 07/24/17 04:00 07/24/17 04:00 ABG ABG pH 7.33 pH Units (7.32-7.45) 07/22/17 16:39 ABG pCO2 96 mmHg (35-45) H* 07/22/17 16:39 ABG pO2 77 mmHg (85-104) L 07/22/17 16:39 ABG O2 Saturation 93 % (95-98) L 07/22/17 16:39 PT/INR, D-dimer PT 11.1 Seconds (9.4-12.1) 07/22/17 11:34 Abnormal lab findings: Abnormal lab results RBC 2.86 M/mcL (3.82-4.97) L 07/24/17 04:00 Hgb 8.2 g/dL (11.5-15.4) L 07/24/17 04:00 Hct 26.8 % (35.3-44.9) L 07/24/17 04:00 MCHC 30.6 g/dL (31.6-35.5) L 07/24/17 04:00 RDW 17.2 % (11.5-14.5) H 07/24/17 04:00 Plt Count 78 K/mcL (140-400) L 07/24/17 04:00 Lymphocytes # 0.1 K/mcL (0.6-4.6) L 07/24/17 04:00 Nucleated RBCs/100 WBC 0.9 /100 WBC (0) H 07/24/17 04:00 Platelet Estimate Decreased (Normal) L 07/24/17 04:00 Polychromasia 1+ (Not Present) A 07/24/17 04:00 Hypochromasia Present (Not Present) A 07/24/17 04:00 Anisocytosis 1+ (Not Present) A 07/24/17 04:00 APTT 43.5 Seconds (26.0-36.0) H 07/22/17 11:34 ABG pCO2 96 mmHg (35-45) H* 07/22/17 16:39 ABG pO2 77 mmHg (85-104) L 07/22/17 16:39 ABG HCO3 51 mEq/L (21-27) H 07/22/17 16:39 ABG Total CO2 53 mEq/L (20-26) H 07/22/17 16:39 ABG O2 Saturation 93 % (95-98) L 07/22/17 16:39 ABG Base Excess 22 mEq/L (-2 to 3) H 07/22/17 16:39 Chloride 95 mEq/L (98-107) L 07/24/17 04:00 Carbon Dioxide 43 mEq/L (23-29) H* 07/24/17 04:00 BUN 31 mg/dL (8-23) H 07/24/17 04:00 Creatinine 1.39 mg/dL (0.60-1.20) H 07/24/17 04:00 Est GFR ( Amer) 44 (> 60) L 07/24/17 04:00 Est GFR (Non-Af Amer) 37 (> 60) L 07/24/17 04:00 Glucose 157 mg/dL (70-105) H 07/24/17 04:00 POC Glucose 192 mg/dL (70-99) H 07/23/17 23:37 Calculated Osmolality 304 (280-300) H 07/24/17 04:00 AST 11 Units/L (13-39) L 07/22/17 11:33 Serum Total Protein 4.8 g/dL (6.4-8.9) L 07/22/17 11:33 Albumin 2.6 g/dL (3.5-5.7) L 07/22/17 11:33 Globulin 2.2 g/dL (2.4-3.5) L 07/22/17 11:33 TSH 48.410 mcIU/mL (0.340-5.600) H 07/22/17 11:33 Free T3 1.31 pg/mL (2.50-3.90) L 07/22/17 18:12 Influenza Type B (PCR) DETECTED (Not Detect) A 07/22/17 23:06 Staphylococcus sp PCR DETECTED (Not Detect) A 07/22/17 11:33 mecA-Methicil Res Gene DETECTED (Not Detect) A 07/22/17 11:33 - Clinical Findings Intake & Output: Intake & Output 07/23/17 07/24/17 07/24/17 23:59 07:59 15:59 Intake Total 780 / 780 200 / 200 250 / 250 Output Total 250 / 250 250 / 250 Balance 530 / 530 -50 / -50 250 / 250 Weight 82.7 kg 85.4 kg Consult Discharge Plan - Plan Referrals: Francisco Melgar Jr [Primary Care Provider] - - Attending Attestation I examined this patient and my medical decision-making was reviewed with the Resident Physician. I agree with the documented findings, disposition and treatment plan as described except to the extent set forth below. We independently had [id number] contact with the patient Patient seen and examined at bedside Labs, radiology, chart personally reviewed. Management was reviewed during multidisciplinary critical care rounds. CLINICAL QUALITY ASSURANCE SPECIALIST: She is awake and alert no focal neurological deficit Pulm: Chronic hypoxic respiratory failure secondary to obesity hypoventilation congestive heart failure COPD continue BiPAP at night and during naps Cards: Bradycardia likely related to hypothyroidism which is improving pacemaker interrogated and functioning normally she has evidence of volume overload blood pressures been tenuous we will diuresis we are able cardiology has evaluated the patient FEN-GI: Advance diet as tolerated after cleared by GI pending endoscopy for GI bleeding she remains on Protonix infusion which likely can be transitioned to IV formulation/twice daily dosing Renal: Chronic kidney failure which is stable urine output monitored as are electrolytes ID: she has influenza be on antiviral treatment she also is noted to have coag- negative staph which is likely contaminant and 1/4 cultures Heme/Onc: SCDs for GI prophylaxis because of concern for acute blood loss anemia secondary to gastrointestinal Ember. 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 She also received stress dose hydrocortisone which was stopped today. Glucose Monitored Integ/MSK: Skin Care per routine ICU Nursing Protocol to prevent ulcers. Lines: All lines examined without evidence of infection : Dispo: Continue care in ICU CODE: currently full code she is been evaluated by palliative care wishes remain aggressive care at this time <Emma Wilkinson - Last Filed: 07/24/17 14:06> Date of Encounter: 07/24/17 Assessment and Plan (1) Myxedema coma Current Visit: Yes Status: Acute History of hypothyroidism on 75 MCG Synthroid at home. Home and also includes iron which may decrease with exertion. On admission she was hypotensive, bradycardic, hypothermic and is found that a TSH of 48. Today her vitals are normalizing. Plan: - Levothyroxin 75 MCG IVP daily - Discontinue hydrocortisone as cortisol level normal and blood pressure stable without pressors. - Recheck T4 and T3 (2) Acute blood loss anemia Current Visit: Yes Status: Acute On initial presentation hemoglobin at 5.9. Status post transfused 3 units of packed her blood cells. Currently stable. GI consult, Awaiting possible EGD today has patient's vitals have slightly improved. Anemia likely secondary to slow GI bleed with chronic anemia due to chronic disease. Plan: - Awaiting GED when GI feels patient's vitals are stable - Protonix infusion - Hemoglobin currently stable, no signs of active bleeding (3) Atrial fibrillation Current Visit: No Status: Chronic History of A. fib. Home medication list has no anticoagulation. Patient is currently anemic possibly 2/2 a GI bleed therefore anticoagulation is contraindicated. Currently patient is rate controlled. Qualifiers: Atrial fibrillation type: paroxysmal Qualified Code(s): I48.0 - Paroxysmal atrial fibrillation (4) COPD (chronic obstructive pulmonary disease) Current Visit: No Status: Chronic Patient is currently on home O2 oxygen requirement, therefore does not appear to be in acute exacerbation. Will continue to use duo nebs and albuterol when necessary. BIPAP at night. Qualifiers: COPD type: chronic bronchitis Chronic bronchitis type: mucopurulent Qualified Code(s): J41.1 - Mucopurulent chronic bronchitis (5) Influenza B Current Visit: Yes Status: Acute Continue Tamiflu 2/5. (6) Primary invasive malignant neoplasm of left female breast Current Visit: No Status: Acute Patient is completed chemotherapy. She follows with oncology at [place]. (7) Type 2 diabetes mellitus Current Visit: No Status: Chronic Currently NPO as patient is waiting for EGD today. Currently on a low-dose sliding scale insulin. Qualifiers: Diabetes mellitus window clerk insulin use: without mcc use Diabetes mellitus complication status: with circulatory complication Diabetes mellitus complication detail: with other circulatory complications Qualified Code(s): E11.59 - Type 2 diabetes mellitus with other circulatory complications (8) DVT prophylaxis Current Visit: Yes Status: Chronic SCDs. Subjective Principal diagnosis: Myxedema Coma / Anemia / Hypotension / Hypothermia Interval history: Ms. Higginbotham is a 76-year-old female past medical history of GI bleed, diabetes type 2, A. fib, COPD, and breast cancer presented to the ED for low hemoglobin from oncology office. Patient was found to have myxedema coma and influenza B. Overnight temperature , heart rate and blood pressure improved and are normalizing. Patient states that she is concerned that if she falls asleep she will . She has not been able to sleep all night. She denies having a headache, dizziness, chest pain, worsening shortness of breath, abdominal pain. Objective PUL Vital signs: Last Vital Signs Temp 98.7 F 07/24/17 08:00 Pulse 66 07/24/17 08:00 Resp 15 07/24/17 08:00 BP 99/48 07/24/17 08:00 Pulse Ox 100 07/24/17 07:00 Constitutional: Alert, anxious Head: Normocephalic, atraumatic Heart: Normal, regular rate and rhythm, no murmurs Lungs: Clear to auscultation, no wheezes, rales, or rhonchi Abdomen: Soft, nondistended, nontender, no guarding or rigidity. Extremities: +1 pitting edema, No clubbing, capillary refill <2sec. Skin: Skin warm and dry, no lesions, no rashes, no jaundice Neurologic: no focal deficits, strength 5/5 in all extremitites Psych: Cooperative with exam, good eye contact, cognitive function intact, speech clear, thought process logical, and goal directed Results - Laboratory Findings CBC and BMP: 07/24/17 04:00 07/24/17 04:00 ABG ABG pH 7.33 pH Units (7.32-7.45) 07/22/17 16:39 ABG pCO2 96 mmHg (35-45) H* 07/22/17 16:39 ABG pO2 77 mmHg (85-104) L 07/22/17 16:39 ABG O2 Saturation 93 % (95-98) L 07/22/17 16:39 PT/INR, D-dimer PT 11.1 Seconds (9.4-12.1) 07/22/17 11:34 Abnormal lab findings: Abnormal lab results RBC 2.86 M/mcL (3.82-4.97) L 07/24/17 04:00 Hgb 8.2 g/dL (11.5-15.4) L 07/24/17 04:00 Hct 26.8 % (35.3-44.9) L 07/24/17 04:00 MCHC 30.6 g/dL (31.6-35.5) L 07/24/17 04:00 RDW 17.2 % (11.5-14.5) H 07/24/17 04:00 Plt Count 78 K/mcL (140-400) L 07/24/17 04:00 Lymphocytes # 0.1 K/mcL (0.6-4.6) L 07/24/17 04:00 Nucleated RBCs/100 WBC 0.9 /100 WBC (0) H 07/24/17 04:00 Platelet Estimate Decreased (Normal) L 07/24/17 04:00 Polychromasia 1+ (Not Present) A 07/24/17 04:00 Hypochromasia Present (Not Present) A 07/24/17 04:00 Anisocytosis 1+ (Not Present) A 07/24/17 04:00 APTT 43.5 Seconds (26.0-36.0) H 07/22/17 11:34 ABG pCO2 96 mmHg (35-45) H* 07/22/17 16:39 ABG pO2 77 mmHg (85-104) L 07/22/17 16:39 ABG HCO3 51 mEq/L (21-27) H 07/22/17 16:39 ABG Total CO2 53 mEq/L (20-26) H 07/22/17 16:39 ABG O2 Saturation 93 % (95-98) L 07/22/17 16:39 ABG Base Excess 22 mEq/L (-2 to 3) H 07/22/17 16:39 Chloride 95 mEq/L (98-107) L 07/24/17 04:00 Carbon Dioxide 43 mEq/L (23-29) H* 07/24/17 04:00 BUN 31 mg/dL (8-23) H 07/24/17 04:00 Creatinine 1.39 mg/dL (0.60-1.20) H 07/24/17 04:00 Est GFR ( Amer) 44 (> 60) L 07/24/17 04:00 Est GFR (Non-Af Amer) 37 (> 60) L 07/24/17 04:00 Glucose 157 mg/dL (70-105) H 07/24/17 04:00 POC Glucose 192 mg/dL (70-99) H 07/23/17 23:37 Calculated Osmolality 304 (280-300) H 07/24/17 04:00 AST 11 Units/L (13-39) L 07/22/17 11:33 Serum Total Protein 4.8 g/dL (6.4-8.9) L 07/22/17 11:33 Albumin 2.6 g/dL (3.5-5.7) L 07/22/17 11:33 Globulin 2.2 g/dL (2.4-3.5) L 07/22/17 11:33 TSH 48.410 mcIU/mL (0.340-5.600) H 07/22/17 11:33 Free T3 1.31 pg/mL (2.50-3.90) L 07/22/17 18:12 Influenza Type B (PCR) DETECTED (Not Detect) A 07/22/17 23:06 Staphylococcus sp PCR DETECTED (Not Detect) A 07/22/17 11:33 mecA-Methicil Res Gene DETECTED (Not Detect) A 07/22/17 11:33 - Clinical Findings Intake & Output: Intake & Output 07/23/17 07/24/17 07/24/17 23:59 07:59 15:59 Intake Total 780 / 780 200 / 200 Output Total 250 / 250 250 / 250 Balance 530 / 530 -50 / -50 Weight 82.7 kg 85.4 kg - VTE Documentation of Mechanical Device: Intermittent pneumatic compression device
[2017-07-24] MEDS: Oseltamivir 6 MG/ML UDC PO SCH (08:34)
--- NOTE | 2017-07-24 09:19 | Palliative Progress Note ---
<Sherif Wallace - Last Filed: 07/24/17 09:17> Date of Encounter: 07/24/17 Time of Encounter: 09:17 - Assessment and plan (1) Goals of care, counseling/discussion Current Visit: Yes Status: Acute Assessment and plan: Should wishes to remain a full code at this time. She Has a designated power of trust and estates attorney. She has expressed her goals of care to her power of trust and estates attorney. Will continue to follow. (2) Bacteremia Current Visit: Yes Status: Acute Assessment and plan: MRSA bacteremia. Management per primary team. (3) Acute blood loss anemia Current Visit: Yes Status: Acute Assessment and plan: H/H stable at this time. Patient had 3 units transfused during hospitalization. No further episodes of bleeding. Per G.I., no scope at this time. 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 Diabetes mellitus complication status: with circulatory complication Diabetes mellitus complication detail: with other circulatory complications Qualified Code(s): E11.59 - Type 2 diabetes mellitus with other circulatory complications (8) COPD (chronic obstructive pulmonary disease) Current Visit: Yes Status: Chronic Qualifiers: COPD type: emphysema Emphysema type: unspecified Qualified Code(s): J43.9 - Emphysema, unspecified - Time Spent With Patient Total time spent is greater than 50% in coordination of care (as documented) at patient's floor/unit and/or counseling patient: - Subjective Interval history: 68-year-old female evaluated at bedside. She denies nausea, vomiting, diarrhea , fever, chills. She states that she is able to get little sleep in the hospital, and denies knowing problems today. - Constitutional Vitals: Abnormal lab results RBC 2.86 M/mcL (3.82-4.97) L 07/24/17 04:00 Hgb 8.2 g/dL (11.5-15.4) L 07/24/17 04:00 Hct 26.8 % (35.3-44.9) L 07/24/17 04:00 MCHC 30.6 g/dL (31.6-35.5) L 07/24/17 04:00 RDW 17.2 % (11.5-14.5) H 07/24/17 04:00 Plt Count 78 K/mcL (140-400) L 07/24/17 04:00 Lymphocytes # 0.1 K/mcL (0.6-4.6) L 07/24/17 04:00 Nucleated RBCs/100 WBC 0.9 /100 WBC (0) H 07/24/17 04:00 Platelet Estimate Decreased (Normal) L 07/24/17 04:00 Polychromasia 1+ (Not Present) A 07/24/17 04:00 Hypochromasia Present (Not Present) A 07/24/17 04:00 Anisocytosis 1+ (Not Present) A 07/24/17 04:00 APTT 43.5 Seconds (26.0-36.0) H 07/22/17 11:34 ABG pCO2 96 mmHg (35-45) H* 07/22/17 16:39 ABG pO2 77 mmHg (85-104) L 07/22/17 16:39 ABG HCO3 51 mEq/L (21-27) H 07/22/17 16:39 ABG Total CO2 53 mEq/L (20-26) H 07/22/17 16:39 ABG O2 Saturation 93 % (95-98) L 07/22/17 16:39 ABG Base Excess 22 mEq/L (-2 to 3) H 07/22/17 16:39 Chloride 95 mEq/L (98-107) L 07/24/17 04:00 Carbon Dioxide 43 mEq/L (23-29) H* 07/24/17 04:00 BUN 31 mg/dL (8-23) H 07/24/17 04:00 Creatinine 1.39 mg/dL (0.60-1.20) H 07/24/17 04:00 Est GFR ( Amer) 44 (> 60) L 07/24/17 04:00 Est GFR (Non-Af Amer) 37 (> 60) L 07/24/17 04:00 Glucose 157 mg/dL (70-105) H 07/24/17 04:00 POC Glucose 192 mg/dL (70-99) H 07/23/17 23:37 Calculated Osmolality 304 (280-300) H 07/24/17 04:00 AST 11 Units/L (13-39) L 07/22/17 11:33 Serum Total Protein 4.8 g/dL (6.4-8.9) L 07/22/17 11:33 Albumin 2.6 g/dL (3.5-5.7) L 07/22/17 11:33 Globulin 2.2 g/dL (2.4-3.5) L 07/22/17 11:33 TSH 48.410 mcIU/mL (0.340-5.600) H 07/22/17 11:33 Free T3 1.31 pg/mL (2.50-3.90) L 07/22/17 18:12 Influenza Type B (PCR) DETECTED (Not Detect) A 07/22/17 23:06 Staphylococcus sp PCR DETECTED (Not Detect) A 07/22/17 11:33 mecA-Methicil Res Gene DETECTED (Not Detect) A 07/22/17 11:33 General appearance: Present: cooperative, no acute distress, obese - Head Head exam: Present: atraumatic, normocephalic - Respiratory Respiratory exam: Present: wheezes - Cardiovascular Cardiovascular exam: Present: RRR, +S1, +S2 - GI/Abdominal GI/Abdominal exam: Present: diminished bowel sounds, distended, soft. Absent: tenderness - Extremities Exam Additional comments: +1 bilateral lower extremity pitting edema. There is areas of bruising present throughout upper extremities. +1 right upper extremity pitting edema present. - Neurological Exam Neurological exam: Present: alert, oriented X3, no focal deficits - Skin Skin exam: Present: intact Palliative Quality Palliative Quality: Screen for Code Status: Yes, Screen for Goals of Care: Yes, Screen for Pain: Yes, If Pain Regimen Started, Initiate Bowel Regimen: Yes, Screen for Nausea/Vomitting: Yes Code Status: 07/23/17 13:47 DNR [Resuscitation Status: Active] [RES] Routine Comment: Resuscitation Status: Full Code - Labs CBC & Chem 7: 07/24/17 04:00 07/24/17 04:00 Labs: Laboratory Results - last 24 hr 07/23/17 07/23/17 07/23/17 11:15 14:00 17:42 WBC RBC Hgb 8.4 L Hct 27.4 L MCV MCH MCHC RDW Plt Count MPV Immature Gran % Seg Neutrophils % Lymphocytes % Monocytes % Eosinophils % Basophils % Neutrophils # Lymphocytes # Monocytes # Eosinophils # Basophils # Nucleated RBCs/100 WBC Platelet Estimate Immature Plt Fraction Polychromasia Hypochromasia Anisocytosis Sodium Potassium Chloride Carbon Dioxide BUN Creatinine Est GFR ( Amer) Est GFR (Non-Af Amer) BUN/Creatinine Ratio Glucose POC Glucose 100 H 242 H Calculated Osmolality Calcium 07/23/17 07/24/17 07/24/17 23:37 04:00 04:00 WBC 4.5 RBC 2.86 L Hgb 8.2 L Hct 26.8 L MCV 93.7 MCH 28.7 MCHC 30.6 L RDW 17.2 H Plt Count 78 L MPV 11.3 Immature Gran % 2.2 Seg Neutrophils % 94.4 Lymphocytes % 2.5 Monocytes % 0.9 Eosinophils % 0.0 Basophils % 0.0 Neutrophils # 4.3 Lymphocytes # 0.1 L Monocytes # 0.0 Eosinophils # 0.0 Basophils # 0.0 Nucleated RBCs/100 WBC 0.9 H Platelet Estimate Decreased L Immature Plt Fraction 3.7 Polychromasia 1+ A Hypochromasia Present A Anisocytosis 1+ A Sodium 142 Potassium 3.7 Chloride 95 L Carbon Dioxide 43 H* BUN 31 H Creatinine 1.39 H Est GFR ( Amer) 44 L Est GFR (Non-Af Amer) 37 L BUN/Creatinine Ratio 22 Glucose 157 H POC Glucose 192 H Calculated Osmolality 304 H Calcium 8.8 - ABG Interpretation ABG results: ABG ABG pH 7.33 pH Units (7.32-7.45) 07/22/17 16:39 ABG pCO2 96 mmHg (35-45) H* 07/22/17 16:39 ABG pO2 77 mmHg (85-104) L 07/22/17 16:39 ABG O2 Saturation 93 % (95-98) L 07/22/17 16:39 PT/INR, D-dimer PT 11.1 Seconds (9.4-12.1) 07/22/17 11:34 Consult Discharge Plan - Plan Referrals: Francisco Melgar Jr [Primary Care Provider] - <Siva Chase - Last Filed: 07/24/17 09:27> Date of Encounter: 07/24/17 - Time Spent With Patient Total time spent is greater than 50% in coordination of care (as documented) at patient's floor/unit and/or counseling patient: - Constitutional Vitals: Abnormal lab results RBC 2.86 M/mcL (3.82-4.97) L 07/24/17 04:00 Hgb 8.2 g/dL (11.5-15.4) L 07/24/17 04:00 Hct 26.8 % (35.3-44.9) L 07/24/17 04:00 MCHC 30.6 g/dL (31.6-35.5) L 07/24/17 04:00 RDW 17.2 % (11.5-14.5) H 07/24/17 04:00 Plt Count 78 K/mcL (140-400) L 07/24/17 04:00 Lymphocytes # 0.1 K/mcL (0.6-4.6) L 07/24/17 04:00 Nucleated RBCs/100 WBC 0.9 /100 WBC (0) H 07/24/17 04:00 Platelet Estimate Decreased (Normal) L 07/24/17 04:00 Polychromasia 1+ (Not Present) A 07/24/17 04:00 Hypochromasia Present (Not Present) A 07/24/17 04:00 Anisocytosis 1+ (Not Present) A 07/24/17 04:00 APTT 43.5 Seconds (26.0-36.0) H 07/22/17 11:34 ABG pCO2 96 mmHg (35-45) H* 07/22/17 16:39 ABG pO2 77 mmHg (85-104) L 07/22/17 16:39 ABG HCO3 51 mEq/L (21-27) H 07/22/17 16:39 ABG Total CO2 53 mEq/L (20-26) H 07/22/17 16:39 ABG O2 Saturation 93 % (95-98) L 07/22/17 16:39 ABG Base Excess 22 mEq/L (-2 to 3) H 07/22/17 16:39 Chloride 95 mEq/L (98-107) L 07/24/17 04:00 Carbon Dioxide 43 mEq/L (23-29) H* 07/24/17 04:00 BUN 31 mg/dL (8-23) H 07/24/17 04:00 Creatinine 1.39 mg/dL (0.60-1.20) H 07/24/17 04:00 Est GFR ( Amer) 44 (> 60) L 07/24/17 04:00 Est GFR (Non-Af Amer) 37 (> 60) L 07/24/17 04:00 Glucose 157 mg/dL (70-105) H 07/24/17 04:00 POC Glucose 192 mg/dL (70-99) H 07/23/17 23:37 Calculated Osmolality 304 (280-300) H 07/24/17 04:00 AST 11 Units/L (13-39) L 07/22/17 11:33 Serum Total Protein 4.8 g/dL (6.4-8.9) L 07/22/17 11:33 Albumin 2.6 g/dL (3.5-5.7) L 07/22/17 11:33 Globulin 2.2 g/dL (2.4-3.5) L 07/22/17 11:33 TSH 48.410 mcIU/mL (0.340-5.600) H 07/22/17 11:33 Free T3 1.31 pg/mL (2.50-3.90) L 07/22/17 18:12 Influenza Type B (PCR) DETECTED (Not Detect) A 07/22/17 23:06 Staphylococcus sp PCR DETECTED (Not Detect) A 07/22/17 11:33 mecA-Methicil Res Gene DETECTED (Not Detect) A 07/22/17 11:33 - Attending Attestation I examined this patient and my medical decision-making was reviewed with the Resident Physician. I agree with the documented findings, disposition and treatment plan as described except to the extent set forth below. Palliative Quality Code Status: 07/23/17 13:47 DNR [Resuscitation Status: Active] [RES] Routine Comment: Resuscitation Status: Full Code - Labs CBC & Chem 7: 07/24/17 04:00 07/24/17 04:00 Labs: Laboratory Results - last 24 hr 07/23/17 07/23/17 07/23/17 11:15 14:00 17:42 WBC RBC Hgb 8.4 L Hct 27.4 L MCV MCH MCHC RDW Plt Count MPV Immature Gran % Seg Neutrophils % Lymphocytes % Monocytes % Eosinophils % Basophils % Neutrophils # Lymphocytes # Monocytes # Eosinophils # Basophils # Nucleated RBCs/100 WBC Platelet Estimate Immature Plt Fraction Polychromasia Hypochromasia Anisocytosis Sodium Potassium Chloride Carbon Dioxide BUN Creatinine Est GFR ( Amer) Est GFR (Non-Af Amer) BUN/Creatinine Ratio Glucose POC Glucose 100 H 242 H Calculated Osmolality Calcium 07/23/17 07/24/17 07/24/17 23:37 04:00 04:00 WBC 4.5 RBC 2.86 L Hgb 8.2 L Hct 26.8 L MCV 93.7 MCH 28.7 MCHC 30.6 L RDW 17.2 H Plt Count 78 L MPV 11.3 Immature Gran % 2.2 Seg Neutrophils % 94.4 Lymphocytes % 2.5 Monocytes % 0.9 Eosinophils % 0.0 Basophils % 0.0 Neutrophils # 4.3 Lymphocytes # 0.1 L Monocytes # 0.0 Eosinophils # 0.0 Basophils # 0.0 Nucleated RBCs/100 WBC 0.9 H Platelet Estimate Decreased L Immature Plt Fraction 3.7 Polychromasia 1+ A Hypochromasia Present A Anisocytosis 1+ A Sodium 142 Potassium 3.7 Chloride 95 L Carbon Dioxide 43 H* BUN 31 H Creatinine 1.39 H Est GFR ( Amer) 44 L Est GFR (Non-Af Amer) 37 L BUN/Creatinine Ratio 22 Glucose 157 H POC Glucose 192 H Calculated Osmolality 304 H Calcium 8.8 - ABG Interpretation ABG results: ABG ABG pH 7.33 pH Units (7.32-7.45) 07/22/17 16:39 ABG pCO2 96 mmHg (35-45) H* 07/22/17 16:39 ABG pO2 77 mmHg (85-104) L 07/22/17 16:39 ABG O2 Saturation 93 % (95-98) L 07/22/17 16:39 PT/INR, D-dimer PT 11.1 Seconds (9.4-12.1) 07/22/17 11:34
[2017-07-24] MEDS: Insulin LISPRO 300 UNITS/3 ML VIAL SQ SCH ×2 (11:27→18:24)
[2017-07-24] MEDS: FLUoxetine 20 MG CAPSULE PO SCH ×2 (11:32→20:57)
[2017-07-24 12:34] LABS: Triiodothyronine (T3) Free 2.05 pg/mL (2.50-3.90)
--- NOTE | 2017-07-24 15:26 | Gastroenterology Progress Note ---
<Duy Serna - Last Filed: 07/24/17 15:24> Date of Encounter: 07/24/17 Time of Encounter: 15:24 - Assessment and plan (1) Anemia Status: Acute Assessment and plan: Patient presented to the ED form oncologist's office for evaluation of anemia with Hgb 5.9. Patient reports chronic melena due to iron supplementation. Occult blood test was positive in the ED. EGD 07/10/17 Dr. Rojo: Severe reflux esophagitis and non-bleeding angioectasia in duodenum and jejunum. Pathology report showed acute ulcerative esophagitis negative for dysplasia. Colonoscopy 07/10/17 Dr. Rojo: Two 5mm non-bleeding polyps in desending colon. Pathology report showed tubular adenoma negative for high grade dysplasia. Patient was transfused 3 units of PRBCs during current hospital stay Monitor CBC and transfuse prn HGB < 7 Continue IVF prn hypotension Change Protonix drip to BID dosing HGB remains stable and patient denies further episodes of GI bleeding. There is no indication for repeat endoscopies at this time. Qualifiers: Anemia type: unspecified type Qualified Code(s): D64.9 - Anemia, unspecified - Time Spent With Patient Total time spent is greater than 50% in coordination of care (as documented) at patient's floor/unit and/or counseling patient: - Subjective Interval history: Patient seen and examined with family at bedside. Patient denies hematemesis or any new c/o. She is anxious about anesthesia and will not give consent for an EGD because she is afraid of not waking up once sedated. - Constitutional Vitals: Temp Pulse Resp BP Pulse Ox 98.7 F 68 20 95/59 100 07/24/17 11:15 07/24/17 13:00 07/24/17 13:00 07/24/17 13:00 07/24/17 13:00 General appearance: Present: cooperative, A&O X 3, no acute distress, obese, answers questions appropriately - Head Head exam: Present: atraumatic, normocephalic - Eye Eye exam: Present: normal appearance, sclera anicteric - ENT ENT exam: Present: mucous membranes dry, normal oropharynx - Neck Neck exam general surgery: Present: normal inspection, trachea midline - Respiratory Respiratory exam: Present: decreased breath sounds - Cardiovascular Cardiovascular exam: Present: RRR, +S1, +S2 - GI/Abdominal GI/Abdominal exam: Present: normal bowel sounds, soft, no peritoneal signs. Absent: distended, tenderness - Rectal Rectal exam: Present: deferred - Extremities Exam Extremities exam: Present: pedal edema, warm - Neurological Exam Neurological exam: Present: oriented X3, no focal deficits - Psychiatric Psychiatric exam: Present: anxious, normal affect - Skin Skin exam: Present: dry, intact, normal color, warm Results - Labs CBC & Chem 7: 07/24/17 04:00 07/24/17 04:00 Labs: Last Result Calcium 8.8 mg/dL (8.6-10.3) 07/24/17 04:00 Troponin I < 0.03 ng/mL (< 0.04) 07/22/17 11:33 Entire Visit Hgb 8.2 g/dL (11.5-15.4) L 07/24/17 04:00 Hct 26.8 % (35.3-44.9) L 07/24/17 04:00 PT 11.1 Seconds (9.4-12.1) 07/22/17 11:34 Total Bilirubin 0.4 mg/dL (0.3-1.0) 07/22/17 11:33 AST 11 Units/L (13-39) L 07/22/17 11:33 ALT 8 Units/L (7-52) 07/22/17 11:33 E. coli (PCR) Not Detected (Not Detect) 07/22/17 11:33 - ABG ABG results: ABG ABG pH 7.33 pH Units (7.32-7.45) 07/22/17 16:39 ABG pCO2 96 mmHg (35-45) H* 07/22/17 16:39 ABG pO2 77 mmHg (85-104) L 07/22/17 16:39 ABG O2 Saturation 93 % (95-98) L 07/22/17 16:39 PT/INR, D-dimer PT 11.1 Seconds (9.4-12.1) 07/22/17 11:34 - VTE Documentation of Mechanical Device: Intermittent pneumatic compression device Consult Discharge Plan - Plan Instructions: Anemia (GEN) Additional Instructions: Follow-up with cancer Center according to your appointments Referrals: Francisco Melgar Jr [Primary Care Provider] - (In 1-2 weeks) Ninfa Rojo MD [Partnered Physician] - (In 2-3 weeks chronic anemia) Prescriptions: ALPRAZolam [Xanax 0.25 MG Tablet] 0.25 mg PO HS 5 Days #5 tablet <Charly Zelaya - Last Filed: 08/13/17 05:07> Date of Encounter: 07/24/17 - Time Spent With Patient Total time spent is greater than 50% in coordination of care (as documented) at patient's floor/unit and/or counseling patient: - Constitutional Vitals: Temp Pulse Resp BP Pulse Ox 97.4 F L 58 18 113/54 97 07/28/17 07:00 07/28/17 07:00 07/28/17 15:51 07/28/17 07:00 07/28/17 15:51 Results - Labs CBC & Chem 7: 07/28/17 04:00 07/28/17 04:00 Labs: Last Result Calcium 8.8 mg/dL (8.6-10.3) 07/28/17 04:00 Troponin I < 0.03 ng/mL (< 0.04) 07/22/17 11:33 Entire Visit Hgb 8.6 g/dL (11.5-15.4) L 07/28/17 04:00 Hct 29.0 % (35.3-44.9) L 07/28/17 04:00 PT 11.1 Seconds (9.4-12.1) 07/22/17 11:34 Total Bilirubin 0.4 mg/dL (0.3-1.0) 07/22/17 11:33 AST 11 Units/L (13-39) L 07/22/17 11:33 ALT 8 Units/L (7-52) 07/22/17 11:33 E. coli (PCR) Not Detected (Not Detect) 07/22/17 11:33 - ABG ABG results: ABG ABG pH 7.33 pH Units (7.32-7.45) 07/28/17 11:11 ABG pCO2 85 mmHg (35-45) H* 07/28/17 11:11 ABG pO2 74 mmHg (85-104) L 07/28/17 11:11 ABG O2 Saturation 92 % (95-98) L 07/28/17 11:11 PT/INR, D-dimer PT 11.1 Seconds (9.4-12.1) 07/22/17 11:34 - Attending Attestation Anahy is here with severe anemia again. She has severe comorbid problems. 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 Plan EGD when stable. Etiology of anemia multifactorial. I examined this patient and my medical decision-making was reviewed with the Resident Physician. I agree with the documented findings, disposition and treatment plan as described except to the extent set forth below.
[2017-07-24] MEDS: Pantoprazole 40 MG VIAL IVP SCH (18:24)
[2017-07-24] MEDS: ALPRAZolam 0.25 MG TABLET PO SCH (20:57)
[2017-07-25] MEDS: Insulin LISPRO 300 UNITS/3 ML VIAL SQ SCH ×4 (00:01→18:05)
[2017-07-25] MEDS: Ipratropium/Albuterol Neb 3 ML IH SCH ×4 (04:00→22:34)
[2017-07-25 04:33] LABS: Basophils % 0.2 %; Eosinophils % 0.2 %; Hematocrit 26.2 % (35.3-44.9); Mean Corpuscular HGB Conc 30.5 g/dL (31.6-35.5); Mean Corpuscular Hemoglobin 29.2 pg (28.0-33.3); Mean Corpuscular Volume 95.6 fL (83.0-100.0); Mean Platelet Volume 10.8 fL (9.4-12.4); Red Blood Count 2.74 M/mcL (3.82-4.97); Red Cell Distribution Width 17.4 % (11.5-14.5)
[2017-07-25 04:36] LABS: Immature Granulocytes % 0.9 % (0-4); Immature Platelets 4.1 % (1.1-6.1); Lymphocytes # 0.6 K/mcL (0.6-4.6); Lymphocytes % 9.2 %; Monocytes # 0.5 K/mcL (0.0-1.3); Monocytes % 7.5 %; Neutrophils # 5.4 K/mcL (1.6-8.9)
[2017-07-25 04:39] LABS: Platelet Count 75 K/mcL (140-400)
[2017-07-25 05:01] LABS: Potassium 3.2 mEq/L (3.5-5.1)
[2017-07-25] MEDS: Pantoprazole 40 MG VIAL IVP SCH ×2 (05:35→18:04)
[2017-07-25] MEDS ORDERED: Potassium Phosphate 44 MEQ in 0.9 % Sodium Chloride 250 ML IVPB PRN (06:35)
[2017-07-25] MEDS: Levothyroxine Sodium 100 MCG VIAL IVP SCH (07:59)
--- NOTE | 2017-07-25 08:09 | Pulmonology Progress Note ---
<Danny Burch - Last Filed: 07/25/17 11:15> Date of Encounter: 07/25/17 Time of Encounter: 08:08 Assessment and Plan (1) Myxedema coma Current Visit: Yes Status: Acute Hypothyroid on 75mcg Synthroid at home; takes concurrently with PO Iron which may decrease absorption -- admitted with hypotension, bradycardia, hypothermia, and TSH of 48 -- cont daily IV dosing; transition to PO Synthroid at same dose starting -- Monitoring vitals closely which are showing improvement -- Daily T3/T4 -- Due to anemia, reinstating PO Iron, but scheduling such that it does not concur with PO Synthroid -- decreased absorption was thought to be precipitant of acute hypothyroid state (2) Bradycardia Current Visit: Yes Status: Acute Does have ICD with kat threshold set to 50+ bpm -- most likely due to hypothyroid / MC state -- cont to monitor; expect continued improvement with IV Synthroid -- HR marginally improving around 60 BPM with adequate blood pressures (3) Hypotension Current Visit: Yes Status: Acute Likely secondary to hypothyroid state + anemia -- doubt volume depletion as BP lacked significant improvement with fluid resuscitation -- BP continues to be stable and adequate -- cont to monitor Qualifiers: Hypotension type: other hypotension type Qualified Code(s): I95.89 - Other hypotension (4) Hypothermia Current Visit: Yes Status: Acute Adequate without warmer; stable Qualifiers: Encounter type: initial encounter Qualified Code(s): T68.XXXA - Hypothermia , initial encounter (5) Acute blood loss anemia Current Visit: Yes Status: Acute Acute on Chronic -- declined EGD -- Hgb stable above 8g/dL -- Cont acid reducing Rx -- monitor H/H qAM (6) Influenza B Current Visit: Yes Status: Acute On Tamiflu (today is Day 3 of 5) (7) Congestive heart failure Current Visit: Yes Status: Chronic Suspect acute exacerbation -- pt does not appear to have decompensated respiratory status or increased work of breathing -- negligible pedal edema with no rales/rhonchi on auscultation -- monitoring BPs and may give Lasix as BP improves (8) Atrial fibrillation Current Visit: No Status: Chronic ICD as above, bradycardic at present. Anticoagulants contraindicated at this time due to acute anemia. Qualifiers: Atrial fibrillation type: paroxysmal Qualified Code(s): I48.0 - Paroxysmal atrial fibrillation (9) COPD (chronic obstructive pulmonary disease) Current Visit: No Status: Chronic Does not appear to have any acute element of COPD -- Supplement O2 as needed to sustain SpO2 >88%. -- in light of Influenza B, will schedule duonebs and keep albuterol as PRN -- BiPAP at night; may need BiPAP qual prior to discharge Qualifiers: COPD type: chronic bronchitis Chronic bronchitis type: mucopurulent Qualified Code(s): J41.1 - Mucopurulent chronic bronchitis (10) Primary invasive malignant neoplasm of left female breast Current Visit: No Status: Acute Sees oncology and was sent to [facility] by oncology clinic for acutely low Hgb ( 5.9 g/dL) (11) Hypokalemia Current Visit: Yes Status: Acute 3.2 this AM; supplemented 40 mEq PO this AM -- in AM (12) DVT prophylaxis Current Visit: Yes Status: Chronic SCDs Subjective Principal diagnosis: Myxedema Coma / Anemia / Hypotension / Hypothermia Interval history: Pt states feeling much better than prior days. Requests advancement beyond liquid diet. Denies any coughing or aspirating with PO intake. Saturating well on nasal cannula and tolerating BiPAP well overnight. Thyroid hormones borderline/low. Vitals continue to be stable with more assuring temperature, HR , and BP. On day 3 of Tamiflu. Pt declined EGD; Hgb has been stable at >8g/dL since initial 3U pRBC transfusion. Plan to transfer to [facility]. Objective PUL Vital signs: Last Vital Signs Temp 97.6 F 07/25/17 07:40 Pulse 57 07/25/17 07:40 Resp 20 07/25/17 07:40 BP 100/48 07/25/17 07:40 Pulse Ox 100 07/25/17 07:40 General appearance: no acute distress, alert Eyes: nonicteric ENT: oropharynx moist Effort: normal Auscultation: bilateral: wheezes Cardiovascular: regular rate and rhythm (HR 60 bpm) Gastrointestinal: soft, non-tender, non-distended Integumentary: normal Extremities: no cyanosis, no edema, pulses normal Musculoskeletal: no deformities normal mental status, non-focal exam mood appropriate, affect normal Results - Laboratory Findings CBC and BMP: 07/25/17 04:00 07/25/17 09:00 ABG ABG pH 7.33 pH Units (7.32-7.45) 07/22/17 16:39 ABG pCO2 96 mmHg (35-45) H* 07/22/17 16:39 ABG pO2 77 mmHg (85-104) L 07/22/17 16:39 ABG O2 Saturation 93 % (95-98) L 07/22/17 16:39 PT/INR, D-dimer PT 11.1 Seconds (9.4-12.1) 07/22/17 11:34 Abnormal lab findings: Abnormal lab results RBC 2.74 M/mcL (3.82-4.97) L 07/25/17 04:00 Hgb 8.0 g/dL (11.5-15.4) L 07/25/17 04:00 Hct 26.2 % (35.3-44.9) L 07/25/17 04:00 MCHC 30.5 g/dL (31.6-35.5) L 07/25/17 04:00 RDW 17.4 % (11.5-14.5) H 07/25/17 04:00 Plt Count 75 K/mcL (140-400) L 07/25/17 04:00 Nucleated RBCs/100 WBC 0.9 /100 WBC (0) H 07/24/17 04:00 Platelet Estimate Decreased (Normal) L 07/24/17 04:00 Polychromasia 1+ (Not Present) A 07/24/17 04:00 Hypochromasia Present (Not Present) A 07/24/17 04:00 Anisocytosis 1+ (Not Present) A 07/24/17 04:00 APTT 43.5 Seconds (26.0-36.0) H 07/22/17 11:34 ABG pCO2 96 mmHg (35-45) H* 07/22/17 16:39 ABG pO2 77 mmHg (85-104) L 07/22/17 16:39 ABG HCO3 51 mEq/L (21-27) H 07/22/17 16:39 ABG Total CO2 53 mEq/L (20-26) H 07/22/17 16:39 ABG O2 Saturation 93 % (95-98) L 07/22/17 16:39 ABG Base Excess 22 mEq/L (-2 to 3) H 07/22/17 16:39 Sodium 148 mEq/L (136-145) H 07/25/17 04:00 Potassium 3.2 mEq/L (3.5-5.1) L 07/25/17 04:00 Chloride 93 mEq/L (98-107) L 07/25/17 04:00 Carbon Dioxide 43 mEq/L (23-29) H* 07/25/17 04:00 BUN 29 mg/dL (8-23) H 07/25/17 04:00 Creatinine 1.31 mg/dL (0.60-1.20) H 07/25/17 04:00 Est GFR ( Amer) 48 (> 60) L 07/25/17 04:00 Est GFR (Non-Af Amer) 39 (> 60) L 07/25/17 04:00 Calculated Osmolality 311 (280-300) H 07/25/17 04:00 AST 11 Units/L (13-39) L 07/22/17 11:33 Serum Total Protein 4.8 g/dL (6.4-8.9) L 07/22/17 11:33 Albumin 2.6 g/dL (3.5-5.7) L 07/22/17 11:33 Globulin 2.2 g/dL (2.4-3.5) L 07/22/17 11:33 TSH 48.410 mcIU/mL (0.340-5.600) H 07/22/17 11:33 Free T3 2.05 pg/mL (2.50-3.90) L 07/24/17 11:16 Influenza Type B (PCR) DETECTED (Not Detect) A 07/22/17 23:06 Staphylococcus sp PCR DETECTED (Not Detect) A 07/22/17 11:33 mecA-Methicil Res Gene DETECTED (Not Detect) A 07/22/17 11:33 - Clinical Findings Intake & Output: Intake & Output 07/24/17 07/25/17 07/25/17 23:59 07:59 15:59 Intake Total 100 / 100 Output Total 250 / 250 275 / 275 50 / 50 Balance -150 / -150 -275 / -275 -50 / -50 Weight 83.4 kg - VTE Documentation of Mechanical Device: Intermittent pneumatic compression device Consult Discharge Plan - Plan Referrals: Francisco Melgar Jr [Primary Care Provider] - <Carlos Pennington W - Last Filed: 07/25/17 19:02> Date of Encounter: 07/25/17 Objective PUL Vital signs: Last Vital Signs Temp 97.6 F 07/25/17 07:40 Pulse 58 07/25/17 08:00 Resp 18 07/25/17 08:00 BP 107/57 07/25/17 08:00 Pulse Ox 100 07/25/17 08:00 Results - Laboratory Findings CBC and BMP: 07/25/17 04:00 07/25/17 09:00 ABG ABG pH 7.33 pH Units (7.32-7.45) 07/22/17 16:39 ABG pCO2 96 mmHg (35-45) H* 07/22/17 16:39 ABG pO2 77 mmHg (85-104) L 07/22/17 16:39 ABG O2 Saturation 93 % (95-98) L 07/22/17 16:39 PT/INR, D-dimer PT 11.1 Seconds (9.4-12.1) 07/22/17 11:34 Abnormal lab findings: Abnormal lab results RBC 2.74 M/mcL (3.82-4.97) L 07/25/17 04:00 Hgb 8.0 g/dL (11.5-15.4) L 07/25/17 04:00 Hct 26.2 % (35.3-44.9) L 07/25/17 04:00 MCHC 30.5 g/dL (31.6-35.5) L 07/25/17 04:00 RDW 17.4 % (11.5-14.5) H 07/25/17 04:00 Plt Count 75 K/mcL (140-400) L 07/25/17 04:00 Nucleated RBCs/100 WBC 0.9 /100 WBC (0) H 07/24/17 04:00 Platelet Estimate Decreased (Normal) L 07/24/17 04:00 Polychromasia 1+ (Not Present) A 07/24/17 04:00 Hypochromasia Present (Not Present) A 07/24/17 04:00 Anisocytosis 1+ (Not Present) A 07/24/17 04:00 APTT 43.5 Seconds (26.0-36.0) H 07/22/17 11:34 ABG pCO2 96 mmHg (35-45) H* 07/22/17 16:39 ABG pO2 77 mmHg (85-104) L 07/22/17 16:39 ABG HCO3 51 mEq/L (21-27) H 07/22/17 16:39 ABG Total CO2 53 mEq/L (20-26) H 07/22/17 16:39 ABG O2 Saturation 93 % (95-98) L 07/22/17 16:39 ABG Base Excess 22 mEq/L (-2 to 3) H 07/22/17 16:39 Sodium 148 mEq/L (136-145) H 07/25/17 04:00 Potassium 3.2 mEq/L (3.5-5.1) L 07/25/17 04:00 Chloride 93 mEq/L (98-107) L 07/25/17 04:00 Carbon Dioxide 43 mEq/L (23-29) H* 07/25/17 04:00 BUN 29 mg/dL (8-23) H 07/25/17 04:00 Creatinine 1.31 mg/dL (0.60-1.20) H 07/25/17 04:00 Est GFR ( Amer) 48 (> 60) L 07/25/17 04:00 Est GFR (Non-Af Amer) 39 (> 60) L 07/25/17 04:00 Calculated Osmolality 311 (280-300) H 07/25/17 04:00 AST 11 Units/L (13-39) L 07/22/17 11:33 Serum Total Protein 4.8 g/dL (6.4-8.9) L 07/22/17 11:33 Albumin 2.6 g/dL (3.5-5.7) L 07/22/17 11:33 Globulin 2.2 g/dL (2.4-3.5) L 07/22/17 11:33 TSH 48.410 mcIU/mL (0.340-5.600) H 07/22/17 11:33 Free T3 2.05 pg/mL (2.50-3.90) L 07/24/17 11:16 Influenza Type B (PCR) DETECTED (Not Detect) A 07/22/17 23:06 Staphylococcus sp PCR DETECTED (Not Detect) A 07/22/17 11:33 mecA-Methicil Res Gene DETECTED (Not Detect) A 07/22/17 11:33 - Clinical Findings Intake & Output: Intake & Output 07/24/17 07/25/17 07/25/17 23:59 07:59 15:59 Intake Total 100 / 100 Output Total 250 / 250 275 / 275 50 / 50 Balance -150 / -150 -275 / -275 -50 / -50 Weight 83.4 kg - Attending Attestation I examined this patient and my medical decision-making was reviewed with the Resident Physician. I agree with the documented findings, disposition and treatment plan as described except to the extent set forth below. We independently had [id number] contact with the patient Patient seen and examined at bedside Labs, radiology, chart personally reviewed. Management was reviewed during multidisciplinary critical care rounds. 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 Bradycardia continues to improve. Chronic HFrEF. ICD placed and back- up pacer. FEN-GI: ADAT. No EGD planned at this time. Appreciate GI consult Renal: CKD UOP monitored and stable. ID: [id number] B cont Tamiflu Heme/Onc: SCDs for cocern of chronic GI bleeding. H/H stable. Endo: Glucose Monitored Integ/MSK: Skin Care per routine ICU Nursing Protocol to prevent ulcers. Lines: All lines examined without evidence of infection : Dispo: Stable for transfer to [facility]. CODE: Full
[2017-07-25] MEDS: Oseltamivir 6 MG/ML UDC PO SCH (08:39)
[2017-07-25 09:32] LABS: Potassium 3.6 mEq/L (3.5-5.1)
[2017-07-25 10:24] LABS: Phosphorous 2.7 mg/dL (2.7-4.5)
--- NOTE | 2017-07-25 13:24 | Event Note ---
Date of Encounter: 07/25/17 Time of Encounter: 13:00 Patient awake and alert. Eating lunch. To be transferred out of ICU today. States she feels breathing is better today. Denies any pain or discomfort. She maintains her wishes to continue with aggressive care. Code status remains full.
[2017-07-25] MEDS: FLUoxetine 20 MG CAPSULE PO SCH (21:08)
[2017-07-25] MEDS: ALPRAZolam 0.25 MG TABLET PO SCH (21:09)
[2017-07-26] MEDS: Insulin LISPRO 300 UNITS/3 ML VIAL SQ SCH ×4 (01:13→17:49)
[2017-07-26] MEDS: Ipratropium/Albuterol Neb 3 ML IH SCH ×5 (03:47→21:49)
[2017-07-26 04:44] LABS: Basophils % 0.2 %; Mean Corpuscular HGB Conc 29.6 g/dL (31.6-35.5); Red Cell Distribution Width 17.7 % (11.5-14.5)
[2017-07-26 04:46] LABS: Eosinophils % 0.5 %; Hematocrit 25.3 % (35.3-44.9); Hemoglobin 7.5 g/dL (11.5-15.4); Immature Granulocytes % 0.9 % (0-4); Immature Platelets 5.6 % (1.1-6.1); Lymphocytes # 0.5 K/mcL (0.6-4.6); Lymphocytes % 9.9 %; Mean Corpuscular Hemoglobin 28.7 pg (28.0-33.3); Mean Corpuscular Volume 96.9 fL (83.0-100.0); Monocytes # 0.4 K/mcL (0.0-1.3); Monocytes % 7.1 %; Red Blood Count 2.61 M/mcL (3.82-4.97); Segmented Neutrophils % 81.4 %
[2017-07-26 04:49] LABS: Neutrophils # 4.5 K/mcL (1.6-8.9); Platelet Count 62 K/mcL (140-400)
[2017-07-26 05:23] LABS: Triiodothyronine (T3) Total 0.33 ng/mL (0.87-1.78)
[2017-07-26] MEDS: Pantoprazole 40 MG VIAL IVP SCH ×2 (06:01→17:46)
[2017-07-26 06:28] LABS: Calcium 8.8 mg/dL (8.6-10.3)
--- NOTE | 2017-07-26 08:11 | Event Note ---
Date of Encounter: 07/26/17 Time of Encounter: 07:20 She awakens easily and converses well. She states she is tolerating the BiPAP fine, is no changes currently and is still okay with short-term intubation. The patient has been concerned about repeat EGD the anesthesia risk, she will certainly reconsider this if the bleeding is apparent again. He assures me that she has not rejected it out right but rather this point does not see that it actually needs to be done. She does wish to continue to get aggressive care , and she remains a full code. Of care has discussed this with her thoroughly and completely in her wishes are here to me. Out of care we will therefore sign off please feel free to reconsult at any time. Of note, patient does understand that she is hospice eligible if and when she wants it.
[2017-07-26] MEDS: Levothyroxine Sodium 100 MCG VIAL IVP SCH (08:41)
[2017-07-26] MEDS: Oseltamivir 6 MG/ML UDC PO SCH (08:46)
[2017-07-26] MEDS ORDERED: 0.9 % Sodium Chloride 250 ML ONE (14:24)
--- NOTE | 2017-07-26 16:21 | Internal Med Progress Note ---
Date of Encounter: 07/26/17 Time of Encounter: 09:10 - Assessment and plan (1) Myxedema coma Current Visit: Yes Status: Acute Assessment and plan: Receiving intravenous levothyroxine. We will transition to oral regimen. Symptoms are improving. Blood pressure is better and heart rate is also better. Patient is more awake and alert. (2) Acute blood loss anemia Current Visit: Yes Status: Acute Assessment and plan: From suspected GI bleed. Patient has history of chronic anemia and GI bleed. 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 She has acute ulcerative esophagitis negative for dysplasia. She also had nonbleeding polyps and descending colon on colonoscopy which were tubular adenoma negative for high -grade dysplasia. Hemoglobin levels at 7.5 today. We will continue to monitor. Consider transfusion for hemoglobin less than 7. Patient blood loss exacerbated due to underlying thrombocytopenia. Platelets 62 today. (3) Atrial fibrillation Current Visit: No Status: Chronic Assessment and plan: Rate controlled. Not on anticoagulation due to chronic GI bleed. Qualifiers: Atrial fibrillation type: paroxysmal Qualified Code(s): I48.0 - Paroxysmal atrial fibrillation (4) Bradycardia Current Visit: Yes Status: Acute Assessment and plan: Heart rate 62 today. (5) COPD (chronic obstructive pulmonary disease) Current Visit: Yes Status: Chronic Assessment and plan: Chronic. Not in acute exacerbation at this time. Use BiPAP as needed. Continue O2 supplementation and bronchodilators. Qualifiers: COPD type: emphysema Emphysema type: unspecified Qualified Code(s): J43.9 - Emphysema, unspecified (6) Hypokalemia Current Visit: Yes Status: Acute Assessment and plan: Improved. Potassium 4 today. (7) Hypotension Current Visit: No Status: Resolved Qualifiers: Hypotension type: hypotension due to drug Qualified Code(s): I95.2 - Hypotension due to drugs (8) Influenza B Current Visit: Yes Status: Acute Assessment and plan: On Tamiflu (9) Primary invasive malignant neoplasm of left female breast Current Visit: No Status: Chronic Assessment and plan: Follow-up outpatient with oncology. (10) DVT prophylaxis Current Visit: No Status: Acute Assessment and plan: With SCDs (11) Chronic systolic (congestive) heart failure Current Visit: Yes Status: Chronic Assessment and plan: Not in acute exacerbation at this time. - Time Spent With Patient Total time spent is greater than 50% in coordination of care (as documented) at patient's floor/unit and/or counseling patient: - Subjective Interval history: Patient is lying in bed. Comfortable. Denies any shortness of breath at this time. Tolerating diet well. Is currently on nasal cannula. Did use BiPAP last night for a little while. No hematemesis or melena. No chest pain. - Constitutional Vitals: Temp Pulse Resp BP Pulse Ox 97.5 F L 62 16 112/62 97 07/26/17 14:51 07/26/17 14:51 07/26/17 15:30 07/26/17 14:51 07/26/17 15:30 General appearance: Present: cooperative, mild distress, A&O X 3, obese, answers questions appropriately - Neck Neck exam general surgery: Present: supple, trachea midline. Absent: lymphadenopathy - Respiratory Respiratory exam: Present: decreased breath sounds (Diminished breath sounds bilaterally), prolonged expiratory phase, wheezes. Absent: accessory muscle use , rales, rhonchi - GI/Abdominal GI/Abdominal exam: Present: normal bowel sounds, soft, no peritoneal signs. Absent: distended, tenderness - Extremities Exam Extremities exam: Present: warm, radial pulses palpable and symmetrical. Absent : calf tenderness, cyanotic, pedal edema - Neurological Exam Neurological exam: Present: oriented X3, no focal deficits. Absent: facial droop, speech deficit - Skin Skin exam: Present: dry, intact, pallor Internal Medicine: Result - Labs CBC & Chem 7: 07/26/17 04:00 07/26/17 04:00 Labs: Short CBC 07/26/17 Range/Units 04:00 WBC 5.5 (4.3-11.1) K/mcL Hgb 7.5 L (11.5-15.4) g/dL Hct 25.3 L (35.3-44.9) % Plt Count 62 L (140-400) K/mcL Neutrophils # 4.5 (1.6-8.9) K/mcL BMP 07/26/17 04:00 Sodium 144 Potassium 4.0 Chloride 99 Carbon Dioxide 43 H* BUN 25 H Creatinine 1.17 Glucose 97 Calcium 8.8 - ABG Interpretation ABG results: ABG ABG pH 7.33 pH Units (7.32-7.45) 07/22/17 16:39 ABG pCO2 96 mmHg (35-45) H* 07/22/17 16:39 ABG pO2 77 mmHg (85-104) L 07/22/17 16:39 ABG O2 Saturation 93 % (95-98) L 07/22/17 16:39 PT/INR, D-dimer PT 11.1 Seconds (9.4-12.1) 07/22/17 11:34 - VTE Documentation of Mechanical Device: Intermittent pneumatic compression device Consult Discharge Plan - Plan Referrals: Francisco Melgar Jr [Primary Care Provider] -
[2017-07-26] MEDS: FLUoxetine 20 MG CAPSULE PO SCH (22:28)
[2017-07-26] MEDS: ALPRAZolam 0.25 MG TABLET PO SCH (22:28)
[2017-07-27] MEDS: Insulin LISPRO 300 UNITS/3 ML VIAL SQ SCH ×3 (00:09→16:30)
[2017-07-27] MEDS: Ipratropium/Albuterol Neb 3 ML IH SCH ×4 (03:50→21:43)
[2017-07-27] MEDS: Pantoprazole 40 MG VIAL IVP SCH ×2 (05:48→16:26)
[2017-07-27 06:30] LABS: Basophils % 0.2 %; Eosinophils % 0.5 %; Immature Granulocytes % 0.9 % (0-4)
[2017-07-27 06:33] LABS: BUN/Creatinine Ratio 19 (6-26); Blood Urea Nitrogen 22 mg/dL (8-23); Calcium 8.8 mg/dL (8.6-10.3); Carbon Dioxide > 45 mEq/L (23-29); Chloride 99 mEq/L (98-107); Glucose 99 mg/dL (70-105); Hematocrit 29.2 % (35.3-44.9); Hemoglobin 8.7 g/dL (11.5-15.4); Immature Platelets 5.3 % (1.1-6.1); Lymphocytes # 0.4 K/mcL (0.6-4.6); Lymphocytes % 7.7 %; Mean Corpuscular HGB Conc 29.8 g/dL (31.6-35.5); Mean Corpuscular Volume 97.3 fL (83.0-100.0); Mean Platelet Volume 11.9 fL (9.4-12.4); Monocytes # 0.3 K/mcL (0.0-1.3); Monocytes % 4.9 %; Neutrophils # 4.9 K/mcL (1.6-8.9); Osmolality,Calculated 303 (280-300); Potassium 4.2 mEq/L (3.5-5.1); Red Cell Distribution Width 17.6 % (11.5-14.5); Segmented Neutrophils % 85.8 %; Sodium 145 mEq/L (136-145); eGFR For African Americans 55 (> 60); eGFR For Non-African Americans 46 (> 60)
[2017-07-27 06:36] LABS: Platelet Count 56 K/mcL (140-400)
[2017-07-27] MEDS: Levothyroxine Sodium 100 MCG VIAL IVP SCH (09:55)
[2017-07-27] MEDS: Oseltamivir 6 MG/ML UDC PO SCH (09:55)
--- NOTE | 2017-07-27 10:23 | Internal Med Progress Note ---
Date of Encounter: 07/27/17 Time of Encounter: 10:21 - Assessment and plan (1) Myxedema coma Current Visit: Yes Status: Acute Assessment and plan: Clinically improving. Transitioning to oral levothyroxine.. Will check TSH levels tomorrow. (2) Acute blood loss anemia Current Visit: Yes Status: Acute Assessment and plan: Hemoglobin 8.7 today. Stable (3) Atrial fibrillation Current Visit: No Status: Chronic Assessment and plan: Rate controlled. Not on anticoagulation due to chronic GI bleed and anemia Qualifiers: Atrial fibrillation type: paroxysmal Qualified Code(s): I48.0 - Paroxysmal atrial fibrillation (4) Bradycardia Current Visit: Yes Status: Acute Assessment and plan: Stable. Patient asymptomatic. Heart rate between 50 and 60. (5) COPD (chronic obstructive pulmonary disease) Current Visit: Yes Status: Chronic Assessment and plan: Chronic. Continue O2 supplementation. Qualifiers: COPD type: emphysema Emphysema type: unspecified Qualified Code(s): J43.9 - Emphysema, unspecified (6) Hypokalemia Current Visit: Yes Status: Acute Assessment and plan: Improved. Potassium 4.2 today. (7) Hypotension Current Visit: No Status: Resolved Qualifiers: Hypotension type: hypotension due to drug Qualified Code(s): I95.2 - Hypotension due to drugs (8) Influenza B Current Visit: Yes Status: Acute Assessment and plan: On Tamiflu. (9) Primary invasive malignant neoplasm of left female breast Current Visit: No Status: Chronic Assessment and plan: Follow-up with oncology as outpatient. (10) DVT prophylaxis Current Visit: No Status: Acute Assessment and plan: With SCDs (11) Chronic systolic (congestive) heart failure Current Visit: Yes Status: Chronic Assessment and plan: Not in acute exacerbation. Will place her back on Lasix. (12) Metabolic alkalosis with respiratory acidosis Current Visit: Yes Status: Chronic Assessment and plan: Chronic metabolic alkalosis. Bicarbonate greater than 45 today. Compensated treated for respiratory acidosis. We will monitor for now. If persists greater than 45, will start her on acetazolamide. - Time Spent With Patient Total time spent is greater than 50% in coordination of care (as documented) at patient's floor/unit and/or counseling patient: - Subjective Interval history: Patient is awake and alert. Comfortable on 2-1/2 L oxygen. Denies any chest pain, nausea or vomiting. No hematemesis or melena. Denies any dizziness or lightheadedness. - Constitutional Vitals: Temp Pulse Resp BP Pulse Ox 97.1 F L 51 16 104/54 99 07/27/17 07:15 07/27/17 07:15 07/27/17 10:03 07/27/17 07:15 07/27/17 10:03 General appearance: Present: cooperative, mild distress, A&O X 3, obese, answers questions appropriately - Neck Neck exam general surgery: Present: supple, trachea midline. Absent: lymphadenopathy - Respiratory Respiratory exam: Present: decreased breath sounds (Diminished at bases), prolonged expiratory phase. Absent: accessory muscle use, rales, rhonchi, wheezes - Cardiovascular Cardiovascular exam: Present: RRR, +S1, +S2. Absent: diastolic murmur, gallop, rubs, systolic murmur - GI/Abdominal GI/Abdominal exam: Present: normal bowel sounds, soft, no peritoneal signs. Absent: distended, tenderness - Extremities Exam Extremities exam: Present: warm, radial pulses palpable and symmetrical. Absent : calf tenderness, cyanotic, pedal edema - Neurological Exam Neurological exam: Present: alert, oriented X3, no focal deficits. Absent: facial droop, speech deficit Internal Medicine: Result - Labs CBC & Chem 7: 07/27/17 05:55 07/27/17 05:55 Labs: Short CBC 07/27/17 Range/Units 05:55 WBC 5.7 (4.3-11.1) K/mcL Hgb 8.7 L (11.5-15.4) g/dL Hct 29.2 L (35.3-44.9) % Plt Count 56 L (140-400) K/mcL Neutrophils # 4.9 (1.6-8.9) K/mcL BMP 07/27/17 05:55 Sodium 145 Potassium 4.2 Chloride 99 Carbon Dioxide > 45 H* BUN 22 Creatinine 1.15 Glucose 99 Calcium 8.8 - ABG Interpretation ABG results: ABG ABG pH 7.33 pH Units (7.32-7.45) 07/22/17 16:39 ABG pCO2 96 mmHg (35-45) H* 07/22/17 16:39 ABG pO2 77 mmHg (85-104) L 07/22/17 16:39 ABG O2 Saturation 93 % (95-98) L 07/22/17 16:39 PT/INR, D-dimer PT 11.1 Seconds (9.4-12.1) 07/22/17 11:34 - VTE Documentation of Mechanical Device: Intermittent pneumatic compression device Consult Discharge Plan - Plan Referrals: Francisco Melgar Jr [Primary Care Provider] -
[2017-07-27] MEDS ORDERED: D5% in Water 1,000 ML IVC PRN (13:44)
[2017-07-27] MEDS ORDERED: Dextrose Gel 15 GM/37.5 ML TUBE PO PRN ×2 (13:44)
[2017-07-27] MEDS ORDERED: *HR* Dextrose 50 % in Water (Syg) 50 ML SYRINGE IVP PRN (13:44)
[2017-07-27] MEDS: Furosemide 40 MG TABLET PO SCH (16:25)
[2017-07-27] MEDS: Sucralfate 1 GM TABLET PO SCH ×2 (16:26→21:27)
[2017-07-27] MEDS ORDERED: Insulin LISPRO 300 UNITS/3 ML VIAL SQ SCH (21:00)
[2017-07-27] MEDS: Fluticasone/Vilanterol [Breo Ellipta 200-25 Mcg Inh] IH SCH (21:27)
[2017-07-27] MEDS: FLUoxetine 20 MG CAPSULE PO SCH (21:27)
[2017-07-27] MEDS: ALPRAZolam 0.25 MG TABLET PO SCH (21:27)
[2017-07-28] MEDS: Ipratropium/Albuterol Neb 3 ML IH SCH ×3 (03:49→15:50)
[2017-07-28] MEDS: Pantoprazole 40 MG VIAL IVP SCH ×2 (05:53→17:33)
[2017-07-28 06:21] LABS: Basophils % 0.2 %; Eosinophils % 0.5 %; Hemoglobin 8.6 g/dL (11.5-15.4); Immature Granulocytes % 1.1 % (0-4)
[2017-07-28 06:22] LABS: Immature Platelets 5.7 % (1.1-6.1); Lymphocytes # 0.4 K/mcL (0.6-4.6); Lymphocytes % 7.5 %; Mean Corpuscular HGB Conc 29.7 g/dL (31.6-35.5); Mean Corpuscular Hemoglobin 29.1 pg (28.0-33.3); Mean Platelet Volume 11.5 fL (9.4-12.4); Monocytes # 0.4 K/mcL (0.0-1.3); Monocytes % 6.3 %; Neutrophils # 4.8 K/mcL (1.6-8.9); Red Blood Count 2.96 M/mcL (3.82-4.97); Red Cell Distribution Width 17.2 % (11.5-14.5); Segmented Neutrophils % 84.4 %
[2017-07-28 06:29] LABS: Platelet Count 52 K/mcL (140-400)
[2017-07-28 06:46] LABS: BUN/Creatinine Ratio 20 (6-26); Blood Urea Nitrogen 23 mg/dL (8-23); Calcium 8.8 mg/dL (8.6-10.3); Carbon Dioxide > 45 mEq/L (23-29); Chloride 98 mEq/L (98-107); Glucose 94 mg/dL (70-105); Osmolality,Calculated 301 (280-300); Potassium 4.4 mEq/L (3.5-5.1); Sodium 144 mEq/L (136-145); eGFR For African Americans 56 (> 60); eGFR For Non-African Americans 47 (> 60)
[2017-07-28 07:07] VITALS: BP 113/54
[2017-07-28] MEDS ORDERED: *HR* Amiodarone 200 MG TABLET PO SCH (09:00)
[2017-07-28] MEDS ORDERED: Folic Acid 1 MG TABLET PO SCH (09:00)
[2017-07-28] MEDS: Insulin LISPRO 300 UNITS/3 ML VIAL SQ SCH ×3 (09:58→17:33)
[2017-07-28] MEDS: Furosemide 40 MG TABLET PO SCH ×2 (10:02→17:37)
[2017-07-28] MEDS: Sucralfate 1 GM TABLET PO SCH ×3 (10:03→17:37)
[2017-07-28] MEDS: Fluticasone/Vilanterol [Breo Ellipta 200-25 Mcg Inh] IH SCH (10:04)
[2017-07-28 11:30] LABS: ABG Base Excess 16 mEq/L (-2 to 3); ABG HCO3 45 mEq/L (21-27); ABG Oxygen Saturation 92 % (95-98); ABG PCO2 85 mmHg (35-45); ABG PH 7.33 pH Units (7.32-7.45); ABG PO2 74 mmHg (85-104); ABG TCO2 48 mEq/L (20-26)
--- NOTE | 2017-07-28 13:42 | Discharge Summary ---
- NOTES TO OUTPATIENT PROVIDER Notes to Outpatient Provider: Patient with chronic anemia and GI bleed along with underlying COPD and chronic respiratory failure with hypoxia and hypercarbia admitted here with acute blood loss anemia hypotension and bradycardia. Also had myxedema with severe hypothyroidism. Was treated with intravenous levothyroxine. Received blood transfusion and since then her blood counts have stabilized. She is clinically stable to be discharged back to skilled rehabilitation. She will follow up with GI as outpatient for further evaluation of her chronic anemia. Orders not resulted at time of discharge: Pending orders 07/29/17 04:00 Basic Metabolic Panel AM 0400 Complete Blood Count [HEME] AM 0400 Date of Encounter: 07/28/17 Time of Encounter: 13:40 - Discharge Diagnosis (1) Acute blood loss anemia Priority: Primary Status: Acute (2) Myxedema coma Priority: Secondary Status: Acute (3) Atrial fibrillation Priority: Secondary Status: Chronic Qualifiers: Atrial fibrillation type: paroxysmal Qualified Code(s): I48.0 - Paroxysmal atrial fibrillation (4) Bradycardia Priority: Secondary Status: Acute (5) COPD (chronic obstructive pulmonary disease) Priority: Secondary Status: Chronic Qualifiers: COPD type: emphysema Emphysema type: unspecified Qualified Code(s): J43.9 - Emphysema, unspecified (6) Hypokalemia Priority: Secondary Status: Acute (7) Hypotension Priority: Secondary Status: Resolved Qualifiers: Hypotension type: hypotension due to drug Qualified Code(s): I95.2 - Hypotension due to drugs (8) Influenza B Priority: Secondary Status: Acute (9) Primary invasive malignant neoplasm of left female breast Priority: Secondary Status: Chronic (10) DVT prophylaxis Priority: Secondary Status: Acute (11) Chronic systolic (congestive) heart failure Priority: Secondary Status: Chronic (12) Metabolic alkalosis with respiratory acidosis Priority: Secondary Status: Chronic (13) Chronic kidney disease, stage 3 Priority: Secondary Status: Chronic Hospital course: Ms. Higginbotham is a 76 year old female patient with multiple comorbidities including chronic anemia with underlying GI bleed, atrial fibrillation, diabetes, hypothyroidism and malignant neoplasm of the left breast that lives here initially to the ICU after presenting with low hemoglobin levels to the ER. She received 4 units of blood transfusion during her stay here. She has had recent upper GI endoscopy in hospital during her last hospitalization in June when she was found to have severe reflux esophagitis and nonbleeding angiectasia and duodenum and jejunum. She also had nonbleeding polyps in the descending colon then. She also had upper GI endoscopy in May of this year which showed chronic gastritis and single nonbleeding AVM. Since her last transfusion 2 days back, her blood counts have remained stable. She denies any hematemesis or melena. She was also found to have severe hypothyroidism with a TSH level of 48. Patient was hypothermic. She was started on intravenous levothyroxine with improvement in her symptoms. Her TSH today is 30. She has now been transitioned to oral levothyroxine. Patient does take levothyroxine at home but it appears that she may be taking it along with her medications. She is recommended to take it the first pain in the morning and to give at least an hour in between before taking other medications. She may take her iron and calcium supplements 4 hours after taking levothyroxine. Patient does have chronic respiratory failure and COPD. She has chronic hypercarbia. She has underlying respiratory acidosis with compensated metabolic alkalosis. Her pH is normal. Her bicarbonate level is greater than 45. I discussed her case with nephrology and given that her pH is normal, they did not recommend any medications to treat this. At this time patient is clinically stable to discharge be discharged back to skilled rehabilitation. However she has chronic comorbidities and is at risk for continued to be hospitalizations due to recurrent anemia and respiratory failure. Palliative care was consulted in the care of this patient and she wishes to remain full code at this time. Discharge discussed with: patient, nurse, case management - Time Spent with Patient Total time spent providing and/or coordinating discharge services: Greater than 30 minutes (45 min) - Discharge Medications Prescriptions: ALPRAZolam [Xanax 0.25 MG Tablet] 0.25 mg PO HS 5 Days #5 tablet Home Medications: Allopurinol [Zyloprim 300 MG] 300 mg PO DAILY 01/12/16 [History] Calcium Carbonate [Calcium] 1,500 mg PO BID 04/22/16 [History] Oxygen 4 l NS AD 04/22/16 [History] Folic Acid 1 mg PO DAILY 05/28/16 [History] Ranitidine HCl [Acid Laundry Presser] 150 mg PO BID 07/12/16 [History] Albuterol Sulfate [Ventolin Hfa] 1 - 2 puff IH Q4-6H PRN 10/14/16 [History] Umeclidinium [place] [Incruse Ellipta] 1 puff IH QPM 10/14/16 [History] Sacubitril/Valsartan 24/26 mg [Entresto 24 mg-26 mg Tablet] 1 tab PO BID [History] Fluticasone/Vilanterol [Breo Ellipta 200-25 Mcg INH] 1 each IH BID 06/16/17 [ History] Ondansetron ODT [Zofran ODT] 4 mg SL Q8H PRN 06/16/17 [History] Amiodarone [Cordarone] 200 mg PO DAILY #0 06/19/17 [Rx] FLUoxetine HCl [Prozac] 20 mg PO HS 07/08/17 [History] Ferrous Gluconate 324 mg PO 1200 07/08/17 [History] Ropinirole HCl [Requip] 4 mg PO HS 07/09/17 [History] Omeprazole [PriLOSEC] 40 mg PO BID capsule. 07/11/17 [Rx] Sucralfate [Carafate] 1 gm PO QIDAC tablet 07/11/17 [Rx] ALPRAZolam [Xanax 0.25 MG Tablet] 0.25 mg PO HS 5 Days #5 tablet 07/28/17 [Rx] Levothyroxine [Synthroid] 150 mcg PO DAILY@0630 tablet 07/28/17 [Rx] Allergies/Adverse Reactions: 3 Allergy/AdvReac Type Severity Reaction Status Date / Time Penicillins Allergy Hives Verified 07/22/17 09:43 Sulfa (Sulfonamide Allergy Hives Verified 07/22/17 09:43 Antibiotics) gabapentin AdvReac Hallucinati Verified 07/22/17 09:43 ng Oxycodone [From Percocet] AdvReac Hallucinati Verified 07/22/17 09:43 ng Date of admission: 07/22/17 14:00 Primary care physician: Francisoc Melgar Jr Consults: 07/22/17 15:04 Consult to Cardiology [CONS] Stat Comment: Consulting Provider: Cardiology Deyanira Reason for Consult: bradycardia with ICD paced at 50+bpm with associated hypotension Time Notified: 15:06 Call Completed: Yes 07/22/17 15:13 Consult to Nutrition [CONS] Routine Comment: Consulting Provider: NUTRITION Reason for Dietary Consult: MST Score 07/23/17 11:04 Consult to Palliative Care [CONS] Routine Comment: Consulting Provider: Palliative Care Deyanira Reason for Consult: Stage II Breast Ca, 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 Time Notified: 11:06 Call Completed: Yes Discharging clinician: Delano Kraft Anticipated date of discharge: 07/28/17 - Constitutional Vitals: Temp Pulse Resp BP Pulse Ox 97.4 F L 58 18 113/54 100 07/28/17 07:00 07/28/17 07:00 07/28/17 10:53 07/28/17 07:00 07/28/17 10:53 General appearance: Present: cooperative, A&O X 3, no acute distress, obese, answers questions appropriately - Respiratory Respiratory exam: Present: decreased breath sounds (diminished breath sounds at both bases), prolonged expiratory phase. Absent: accessory muscle use, rales, rhonchi, wheezes - Cardiovascular Cardiovascular exam: Present: RRR, +S1, +S2, systolic murmur. Absent: diastolic murmur, gallop, rubs - GI/Abdominal GI/Abdominal exam: Present: normal bowel sounds, soft, no peritoneal signs. Absent: distended, tenderness - Extremities Exam Extremities exam: Present: warm, radial pulses palpable and symmetrical. Absent : calf tenderness, cyanotic, pedal edema - Neurological Exam Neurological exam: Present: alert, oriented X3, no focal deficits. Absent: facial droop, speech deficit - Skin Skin exam: Present: dry, intact - Patient Status Disposition: Transfer SNF Condition: Fair Functional capacity at discharge: wheelchair bound Overall status at discharge: patient is progressing back to baseline - Discharge Instructions Instructions: Anemia (GEN) Follow Up With: Francisco Melgar Jr [Primary Care Provider] - (In 1-2 weeks) Ninfa Rojo MD [Partnered Physician] - (In 2-3 weeks chronic anemia) Additional Instructions: Follow-up with cancer Center according to your appointments - Diet and Activity Activity: increase activity as tolerated Diet: diabetic diet, low fat, low cholesterol, low salt diet - VTE Documentation of Mechanical Device: Intermittent pneumatic compression device
--- NOTE | 2017-07-28 14:02 | Physician Discharge Referral ---
ExtendedCare Referral Info Provider in Charge after Transfer: PCP Institutional Level of Care: Skilled - Diagnosis (1) Acute blood loss anemia Priority: Primary Status: Acute (2) Myxedema coma Priority: Secondary Status: Acute (3) Atrial fibrillation Priority: Secondary Status: Chronic (4) Bradycardia Priority: Secondary Status: Acute (5) COPD (chronic obstructive pulmonary disease) Priority: Secondary Status: Chronic (6) Hypokalemia Priority: Secondary Status: Acute (7) Hypotension Priority: Secondary Status: Resolved (8) Influenza B Priority: Secondary Status: Acute (9) Primary invasive malignant neoplasm of left female breast Priority: Secondary Status: Chronic (10) DVT prophylaxis Priority: Secondary Status: Acute (11) Chronic systolic (congestive) heart failure Priority: Secondary Status: Chronic (12) Metabolic alkalosis with respiratory acidosis Priority: Secondary Status: Chronic (13) Chronic kidney disease, stage 3 Priority: Secondary Status: Chronic - Transfer Medications Prescriptions: ALPRAZolam [Xanax 0.25 MG Tablet] 0.25 mg PO HS 5 Days #5 tablet Home Medications: Allopurinol [Zyloprim 300 MG] 300 mg PO DAILY 01/12/16 [History] Calcium Carbonate [Calcium] 1,500 mg PO BID 04/22/16 [History] Oxygen 4 l NS AD 04/22/16 [History] Folic Acid 1 mg PO DAILY 05/28/16 [History] Ranitidine HCl [Acid Preschool Program Director] 150 mg PO BID 07/12/16 [History] Albuterol Sulfate [Ventolin Hfa] 1 - 2 puff IH Q4-6H PRN 10/14/16 [History] Umeclidinium [place] [Incruse Ellipta] 1 puff IH QPM 10/14/16 [History] Sacubitril/Valsartan 24/26 mg [Entresto 24 mg-26 mg Tablet] 1 tab PO BID [History] Fluticasone/Vilanterol [Breo Ellipta 200-25 Mcg INH] 1 each IH BID 06/16/17 [ History] Ondansetron ODT [Zofran ODT] 4 mg SL Q8H PRN 06/16/17 [History] Amiodarone [Cordarone] 200 mg PO DAILY #0 06/19/17 [Rx] FLUoxetine HCl [Prozac] 20 mg PO HS 07/08/17 [History] Ferrous Gluconate 324 mg PO 1200 07/08/17 [History] Ropinirole HCl [Requip] 4 mg PO HS 07/09/17 [History] Omeprazole [PriLOSEC] 40 mg PO BID capsule. 07/11/17 [Rx] Sucralfate [Carafate] 1 gm PO QIDAC tablet 07/11/17 [Rx] ALPRAZolam [Xanax 0.25 MG Tablet] 0.25 mg PO HS 5 Days #5 tablet 07/28/17 [Rx] Levothyroxine [Synthroid] 150 mcg PO DAILY@0630 tablet 07/28/17 [Rx] Allergies/Adverse Reactions: 3 Allergy/AdvReac Type Severity Reaction Status Date / Time Penicillins Allergy Hives Verified 07/22/17 09:43 Sulfa (Sulfonamide Allergy Hives Verified 07/22/17 09:43 Antibiotics) gabapentin AdvReac Hallucinati Verified 07/22/17 09:43 ng Oxycodone [From Percocet] AdvReac Hallucinati Verified 07/22/17 09:43 ng - Respiratory Orders Oxygen / L per min (3) Smoking Cessation: Smoking cessation has been advised. For more information, call the [place] Tobacco Quit Line at 6-541-OKCG-NOW. - Ancillary Orders May consult with Dentist, Networks Computer Consultant, Small Machine Bindery Operator PRN - Advance Directives Code Status: Full Code - Mobility Orders Other (per PT) - Rehabiliation Orders Rehab Potential: Fair Rehab Orders: Evaluation for Physical Therapy, Evaluation for Occupational Therapy - Diet Orders No Concentrated Sweets (Diabetic), Cardiac CERTIFICATION: I certify that the transfer of the above named patient to an Extended Care Facility is necessary for the continuing treatment of the diagnosis listed. The above information is true and accurate reflection of patient's current condition. Confidential - Redisclosure prohibited without a patient's written consent.
== END 2017-07-28 18:10 | DRG 811 ==
LOC: EMEROO 10:46 → ICNU 10:46 → SUATTDRO 14:00 → ICNU 14:30 → 2NENU 07-26 11:07
PROVIDERS: ADMIT Internal Medicine Hospice and Palliative Medicine; ATTEND Internal Medicine

== ENCOUNTER 2017-08-05 15:50 | Inpatient (IN) ==
[2017-08-05] MEDS ORDERED: Pantoprazole 80 MG in 0.9 % Sodium Chloride 50 ML IVPB ONE (16:24)
--- NOTE | 2017-08-05 16:25 | Emergency Department Note ---
Disposition Clinical Impression: Anemia Qualifiers: Anemia type: other cause Other causes of anemia: other cause, not classified Qualified Code(s): D64.89 - Other specified anemias Disposition: Still a Patient Condition: Serious Time of Disposition: 16:57 General Adult HPI - General Chief complaint: ED Recheck/Abnormal Lab/Rx Stated complaint: "abnormal labs,hypotension" sent by Time Seen by Provider: 08/05/17 16:11 Source: patient, family Limitations: no limitations Nursing Notes Reviewed: Yes Vital Signs Reviewed: Yes - History of Present Illness HPI Narrative: Mrs. 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 Patient has a history of acute on chronic anemia secondary to GI loss-angiodysplasia of the gastric and colon. She has previously received multiple units of packed red blood cells and ICU admission. Her symptoms are weakness and fatigue. She has no hematochezia. She has melena however is on iron supplements. ROS: Positive: As above Negative: Fever, chills, nausea, vomiting, chest pain, palpitations, dyspnea, diaphoresis, abdominal pain, changes in bowel or bladder habits, numbness, tingling, headache, changes in vision, trauma or falls. Patient is not on any antiplatelet or anticoagulant. PMH: Pacemaker with ICD, hypothyroidism, chronic low back pain, severe COPD with chronic hyper Here; 4 L O2 continuous, history of multiple GI bleeds. Prior history of breast cancer with left mastectomy and subsequent lymphedema left upper extremity. Pain Scale: 0 - Related Data Home Medications Medication Instructions Recorded Confirmed Allopurinol [Zyloprim 300 MG] 300 mg PO DAILY 01/12/16 08/05/17 Calcium Carbonate [Calcium] 1,500 mg PO BID 04/22/16 08/05/17 Oxygen 4 l NS AD 04/22/16 08/05/17 Folic Acid 1 mg PO DAILY 05/28/16 08/05/17 Ranitidine HCl [Acid Dinkey Locomotive Engineer] 150 mg PO BID 07/12/16 08/05/17 Albuterol Sulfate [Ventolin Hfa] 1 - 2 puff IH Q4-6H PRN 10/14/16 08/05/17 Umeclidinium [place] [Incruse 1 puff IH QPM 10/14/16 08/05/17 Ellipta] Sacubitril/Valsartan 24/26 mg 1 tab PO BID 06/03/17 08/05/17 [Entresto 24 mg-26 mg Tablet] Fluticasone/Vilanterol [Breo 1 each IH BID 06/16/17 08/05/17 Ellipta 200-25 Mcg INH] Ondansetron ODT [Zofran ODT] 4 mg SL Q8H PRN 06/16/17 08/05/17 FLUoxetine HCl [Prozac] 20 mg PO HS 07/08/17 08/05/17 Ferrous Gluconate 324 mg PO 1200 07/08/17 08/05/17 Ropinirole HCl [Requip] 4 mg PO HS 07/09/17 08/05/17 Previous Rx's Medication Instructions Recorded Amiodarone [Cordarone] 200 mg PO DAILY #0 06/19/17 Omeprazole [PriLOSEC] 40 mg PO BID capsule. 07/11/17 Sucralfate [Carafate] 1 gm PO QIDAC tablet 07/11/17 ALPRAZolam [Xanax 0.25 MG Tablet] 0.25 mg PO HS 5 Days #5 tablet 07/28/17 Levothyroxine [Synthroid] 150 mcg PO DAILY@0630 tablet 07/28/17 Allergies Allergy/AdvReac Type Severity Reaction Status Date / Time Penicillins Allergy Hives Verified 08/05/17 14:15 Sulfa (Sulfonamide Allergy Hives Verified 08/05/17 14:15 Antibiotics) gabapentin AdvReac Hallucinati Verified 08/05/17 14:15 ng Oxycodone [From Percocet] AdvReac Hallucinati Verified 08/05/17 14:15 ng All systems ED: reviewed and negative except as stated. Review of Systems: As Per HPI Past Medical History - Past Medical History Medical history: Reports: asthma, atrial fibrillation, cancer, cardiomyopathy, CHF, COPD, GERD, GI bleed, renal disease, thyroid disease, valvular heart disease Surgical history: Reports: appendectomy, breast surgery, cancer surgery, heart valve replacement, hysterectomy, pacemaker/AICD Psychiatric history: Reports: anxiety, depression SILK CONDITIONER history: Reports: no SILK CONDITIONER history - Social History Smoking Status: Former smoker Smokeless Tobacco Status: No Alcohol use: Reports: none Drug use: Reports: none Physical Exam Vital Signs Reviewed General: Patient is alert, oriented, and in no acute distress. Head: atraumatic, normocephalic Eye: normal appearance, PERRL, EOMI, no scleral icterus, no conjunctival injection ENT: mucous membranes moist, normal external ear exam Neck: normal inspection, trachea midline, full ROM Chest: normal inspection, symmetric chest rise Respiratory: Good respiratory effort. Bilateral breath sounds are clear without wheezing, crackles, or rhonchi. Cardiovascular: Regular rate and rhythm. No clicks, rubs, gallops, or murmors. Normal heart sounds. Bilateral upper extremities swollen; baseline per patient and family. Abdomen: Bowel sounds present normoactive x-4 quadrants. Abdomen is soft, nondistended, and nontender. No guarding or rebound. No organomegaly noted. Musculoskeletal: Spontaneously moving all extremities. Skin: cool, dry, intact. No mottling or cyanosis. Neuro: Alert and oriented x4. Sensation light touch intact. Psych: Patient's affect is appropriate for situation. - General Limitations: no limitations General appearance: alert, in no apparent distress Course Course Narrative: I discussed the patient with Dr. Zelaya, the patient's set up mechanic heading machines. He is well familiar with the patient and did send her to the emergency department. He recommends 2 units packed red blood cells, IV Protonix, nothing by mouth. His plan is to do an inpatient endoscopy tomorrow. His plan was to call hospitalist consult. However, because the patient sort emergency department, I am happy to take care of the admission. I reviewed patient's lab work from earlier today. He did go to 7.0. Will add on coags, type and screen, electrolytes and renal function. EKG, IV Protonix, and 2 units packed red blood cells. Patient has been signed out to my attending, Dr. Bey. All lab work is pending. EKG PRBC is pending. Vital Signs Temperature 0 F L 08/05/17 16:01 Pulse Rate 51 08/05/17 16:01 Respiratory Rate 20 08/05/17 16:01 Blood Pressure 77/50 08/05/17 16:01 O2 Sat by Pulse Oximetry 100 08/05/17 16:01 Temperature 0 F L 08/05/17 16:01 Pulse Rate 51 08/05/17 16:01 Respiratory Rate 20 08/05/17 16:01 Blood Pressure 77/50 08/05/17 16:01 O2 Sat by Pulse Oximetry 100 08/05/17 16:01 Oxygen Delivery Oxygen Delivery Nasal Cannula
[2017-08-05 17:02] LABS: Prothrombin Time 10.8 Seconds (9.4-12.1)
[2017-08-05 17:19] LABS: Calcium 8.9 mg/dL (8.6-10.3); Potassium 4.2 mEq/L (3.5-5.1)
--- NOTE | 2017-08-05 18:11 | Emergency Department Note ---
Disposition Clinical Impression: Hypothyroid Anemia Qualifiers: Anemia type: other cause Other causes of anemia: other cause, not classified Qualified Code(s): D64.89 - Other specified anemias Disposition: Admitted As Inpatient Condition: Serious Time of Disposition: 17:30 General Adult HPI - General Chief complaint: ED Recheck/Abnormal Lab/Rx Stated complaint: "abnormal labs,hypotension" sent by Time Seen by Provider: 08/05/17 16:11 Source: patient, family Limitations: no limitations Nursing Notes Reviewed: Yes Vital Signs Reviewed: Yes - History of Present Illness Pain Scale: 0 - Related Data Home Medications Medication Instructions Recorded Confirmed Allopurinol [Zyloprim 300 MG] 300 mg PO DAILY 01/12/16 08/05/17 Calcium Carbonate [Calcium] 1,500 mg PO BID 04/22/16 08/05/17 Oxygen 4 l NS AD 04/22/16 08/05/17 Folic Acid 1 mg PO DAILY 05/28/16 08/05/17 Ranitidine HCl [Acid Closing Coordinator] 150 mg PO BID 07/12/16 08/05/17 Albuterol Sulfate [Ventolin Hfa] 1 - 2 puff IH Q4-6H PRN 10/14/16 08/05/17 Umeclidinium [place] [Incruse 1 puff IH QPM 10/14/16 08/05/17 Ellipta] Sacubitril/Valsartan 24/26 mg 1 tab PO BID 06/03/17 08/05/17 [Entresto 24 mg-26 mg Tablet] Fluticasone/Vilanterol [Breo 1 each IH BID 06/16/17 08/05/17 Ellipta 200-25 Mcg INH] Ondansetron ODT [Zofran ODT] 4 mg SL Q8H PRN 06/16/17 08/05/17 FLUoxetine HCl [Prozac] 20 mg PO HS 07/08/17 08/05/17 Ferrous Gluconate 324 mg PO 1200 07/08/17 08/05/17 Ropinirole HCl [Requip] 4 mg PO HS 07/09/17 08/05/17 Previous Rx's Medication Instructions Recorded Amiodarone [Cordarone] 200 mg PO DAILY #0 06/19/17 Omeprazole [PriLOSEC] 40 mg PO BID capsule. 07/11/17 Sucralfate [Carafate] 1 gm PO QIDAC tablet 07/11/17 ALPRAZolam [Xanax 0.25 MG Tablet] 0.25 mg PO HS 5 Days #5 tablet 07/28/17 Levothyroxine [Synthroid] 150 mcg PO DAILY@0630 tablet 07/28/17 Allergies Allergy/AdvReac Type Severity Reaction Status Date / Time Penicillins Allergy Hives Verified 08/05/17 14:15 Sulfa (Sulfonamide Allergy Hives Verified 08/05/17 14:15 Antibiotics) gabapentin AdvReac Hallucinati Verified 08/05/17 14:15 ng Oxycodone [From Percocet] AdvReac Hallucinati Verified 08/05/17 14:15 ng Past Medical History - Past Medical History Medical history: Reports: asthma, atrial fibrillation, cancer, cardiomyopathy, CHF, COPD, GERD, GI bleed, renal disease, thyroid disease, valvular heart disease Surgical history: Reports: appendectomy, breast surgery, cancer surgery, heart valve replacement, hysterectomy, pacemaker/AICD Psychiatric history: Reports: anxiety, depression BUSINESS ANALYTICS INTERN history: Reports: no BUSINESS ANALYTICS INTERN history - Social History Smoking Status: Former smoker Smokeless Tobacco Status: No Alcohol use: Reports: none Drug use: Reports: none Physical Exam - General Limitations: no limitations General appearance: alert, in no apparent distress Course Vital Signs Temperature 0 F L 08/05/17 16:01 Pulse Rate 51 08/05/17 16:01 Respiratory Rate 20 08/05/17 16:01 Blood Pressure 77/50 08/05/17 16:01 O2 Sat by Pulse Oximetry 100 08/05/17 16:01 Temperature 96.1 F L 08/06/17 12:00 Pulse Rate 50 08/06/17 12:00 Respiratory Rate 10 08/06/17 12:00 Blood Pressure 102/49 08/06/17 12:00 O2 Sat by Pulse Oximetry 93 08/06/17 12:00 Oxygen Delivery Oxygen Delivery Nasal Cannula Medical Decision Making - Lab Data Result diagrams: 08/06/17 11:20 08/06/17 11:20 Lab Results 08/05/17 08/05/17 08/05/17 Range/Units 16:50 16:50 16:50 PT 10.8 (9.4-12.1) Seconds INR 1.0 Sodium 139 (136-145) mEq/L Potassium 4.2 (3.5-5.1) mEq/L Chloride 96 L (98-107) mEq/L Carbon Dioxide 43 H* (23-29) mEq/L BUN 31 H (8-23) mg/dL Creatinine 1.48 H (0.60-1.20) mg/dL Est GFR ( Amer) 41 L (> 60) Est GFR (Non-Af Amer) 34 L (> 60) BUN/Creatinine Ratio 21 (6-26) Glucose 88 (70-105) mg/dL Calculated Osmolality 294 (280-300) Calcium 8.9 (8.6-10.3) mg/dL TSH 29.467 H (0.340-5.600) mcIU/mL Blood Type O POSITIVE Antibody Screen NEGATIVE Crossmatch See Detail Attestation Statement - Attestation Attestation: I, Errol Bey, examined this patient and my medical decision-making was reviewed with the SENIOR LINUX UNIX ENGINEER/PA/Advanced Practice Nurse/Resident Physician. I agree with the documented findings, disposition and treatment plan as described except to the extent set forth below. 76-year-old female brought to the emergency department for concerns of anemia. Patient was recently admitted to the hospital for similar situation. Patient hemoglobin is 7 today with outpatient testing. She was evaluated by both her hydrogenation still operator who recommended 2 units of blood to be transfused as well as by the GI physician, Dr. Zelaya, who recommended she be admitted to the hospital for endoscopy and colonoscopy today or tomorrow. Resident spoke with Dr. Zelaya to confirm. Patient was initially mildly hypotensive, she was given IV fluids which improved her blood pressure. Patient will be admitted to the hospitalist for further care and evaluation. 2 units of packed her blood cells ordered from the emergency department after the initial evaluation. On reevaluation of her vital signs prior to going upstairs for admission, the patient was again hypotensive and given additional IV fluids with mild improvement. She was hypothermic and was placed on the bear hugger. A central line was placed after verbal and written consent were obtained after discussion of risks and benefits. Packed red blood cells had already been ordered and are ready to be given. Due to the patient's hypothermia we ordered a TSH for evaluation of possible hypothyroidism which patient has been treated for the past. Patient continues to not have significant concerns or complaints. She is not hypoxic. Her heart rate is in the 50s however this is her baseline from previous admissions. Hospitalist was updated on elevated TSH. Steroids were ordered in the emergency department. Patient does not meet Sirs criteria. Chest x-ray is not significantly changed from previous x-ray. A central line was placed by the resident, Dr. Fernandez, for additional IV access. Synthroid was ordered in the emergency department after speaking with the pharmacist. Hospitalist was updated on patient's status.
[2017-08-05] MEDS ORDERED: 0.9 % Sodium Chloride 1,000 ML ONE (18:16)
[2017-08-05] MEDS ORDERED: 0.9 % Sodium Chloride 500 ML IVC ONE (18:17)
[2017-08-05] MEDS ORDERED: 0.9 % Sodium Chloride 1,000 ML IVC ONE (20:33)
[2017-08-05] MEDS ORDERED: Naloxone 0.4 MG/ML INJ IVP PRN (20:33)
[2017-08-05] MEDS ORDERED: Ondansetron ODT 4 MG TAB.RAPDIS SL PRN (20:35)
[2017-08-05] MEDS ORDERED: 0.9 % Sodium Chloride 500 ML ONE (20:54)
[2017-08-05] MEDS ORDERED: ALPRAZolam 0.25 MG TABLET PO SCH (21:00)
[2017-08-05 21:37] LABS: Bilirubin,Urine Small (Negative); Blood,Urine Negative (Negative); Clarity,Urine Cloudy (Clear); Color,Urine Yellow (Yellow); Glucose,Urine (UA) Normal (Normal); Ketones,Urine Negative (Negative); Leukocyte Esterase,Urine Small (Negative); Nitrite,Urine Negative (Negative); PH,Urine 5.5 pH Units (5.0-8.0); Protein,Urine 100 mg/dL (Neg-Trace); Specific Gravity,Urine 1.021 (1.010-1.025); Urobilinogen,Urine Normal (Normal)
[2017-08-05 21:38] LABS: RBC,Urine 0-3 per hpf (0-3); Squamous Epithelial Cell,Urine Many per lpf (None-Few)
[2017-08-05 21:52] LABS: Hyaline Casts,Urine Few per lpf (None-Few); Renal Epithelial Cells,Urine Moderate per hpf (None-Few)
[2017-08-05 21:53] LABS: Amorphous Sediment,Urine Moderate (Few); Bacteria,Urine Few per hpf (None-Few); Mucus,Urine Few (Few)
--- NOTE | 2017-08-05 22:07 | Emergency Department Note ---
Disposition Clinical Impression: Anemia Qualifiers: Anemia type: other cause Other causes of anemia: other cause, not classified Qualified Code(s): D64.89 - Other specified anemias Hypothyroid Qualifiers: Hypothyroidism type: unspecified Qualified Code(s): E03.9 - Hypothyroidism, unspecified Disposition: Admitted As Inpatient Condition: Serious Time of Disposition: 23:27 General Adult HPI - General Chief complaint: ED Recheck/Abnormal Lab/Rx Stated complaint: "abnormal labs,hypotension" sent by Time Seen by Provider: 08/05/17 16:11 Source: patient, family Limitations: no limitations Nursing Notes Reviewed: Yes Vital Signs Reviewed: Yes - History of Present Illness Pain Scale: 3 - Related Data Home Medications Medication Instructions Recorded Confirmed Allopurinol [Zyloprim 300 MG] 300 mg PO DAILY 01/12/16 08/05/17 Calcium Carbonate [Calcium] 1,500 mg PO BID 04/22/16 08/05/17 Oxygen 4 l NS AD 04/22/16 08/05/17 Folic Acid 1 mg PO DAILY 05/28/16 08/05/17 Ranitidine HCl [Acid Airplane Cleaner] 150 mg PO BID 07/12/16 08/05/17 Albuterol Sulfate [Ventolin Hfa] 1 - 2 puff IH Q4-6H PRN 10/14/16 08/05/17 Umeclidinium [place] [Incruse 1 puff IH QPM 10/14/16 08/05/17 Ellipta] Sacubitril/Valsartan 24/26 mg 1 tab PO BID 06/03/17 08/05/17 [Entresto 24 mg-26 mg Tablet] Fluticasone/Vilanterol [Breo 1 each IH BID 06/16/17 08/05/17 Ellipta 200-25 Mcg INH] Ondansetron ODT [Zofran ODT] 4 mg SL Q8H PRN 06/16/17 08/05/17 FLUoxetine HCl [Prozac] 20 mg PO HS 07/08/17 08/05/17 Ferrous Gluconate 324 mg PO 1200 07/08/17 08/05/17 Ropinirole HCl [Requip] 4 mg PO HS 07/09/17 08/05/17 Previous Rx's Medication Instructions Recorded Amiodarone [Cordarone] 200 mg PO DAILY #0 06/19/17 Omeprazole [PriLOSEC] 40 mg PO BID capsule. 07/11/17 Sucralfate [Carafate] 1 gm PO QIDAC tablet 07/11/17 ALPRAZolam [Xanax 0.25 MG Tablet] 0.25 mg PO HS 5 Days #5 tablet 07/28/17 Levothyroxine [Synthroid] 150 mcg PO DAILY@0630 tablet 07/28/17 Allergies Allergy/AdvReac Type Severity Reaction Status Date / Time Penicillins Allergy Hives Verified 08/05/17 14:15 Sulfa (Sulfonamide Allergy Hives Verified 08/05/17 14:15 Antibiotics) gabapentin AdvReac Hallucinati Verified 08/05/17 14:15 ng Oxycodone [From Percocet] AdvReac Hallucinati Verified 08/05/17 14:15 ng Past Medical History - Past Medical History Medical history: Reports: asthma, atrial fibrillation, cancer, cardiomyopathy, CHF, COPD, GERD, GI bleed, renal disease, thyroid disease, valvular heart disease Surgical history: Reports: appendectomy, breast surgery, cancer surgery, heart valve replacement, hysterectomy, pacemaker/AICD Psychiatric history: Reports: anxiety, depression CORN MILLER history: Reports: no CORN MILLER history - Social History Smoking Status: Former smoker Smokeless Tobacco Status: No Alcohol use: Reports: none Drug use: Reports: none Physical Exam - General Limitations: no limitations General appearance: alert, in no apparent distress Course Course Narrative: Patient was ready to be transferred to the floor when nurse performed an oral temperature complete a set of vitals prior to transfer. Patient was found to be hypothermic. This was confirmed with rectal temp. Though, on my initial review systems, patient denied fever or chills, she did have additional symptoms of weakness and fatigue with mild dyspnea. This is clinically potentially secondary to her established anemia however the addition of hypothermia increases my concern for sepsis. Patient is NOT SIRS (+). Will repeat lab work performed this morning and had additional lab studies. Given patient's difficult vascular access, consent was obtained from the patient to place a central line. Right internal jugular central line placed without difficulty or complication. The admitting hospitalist was updated. Urinalysis is not concerning for UTI. Patient has leukocytopenia which is her chronic baseline. On reviewing the patient's chest x-ray to prior, similar comparison. Patient is hypothyroid. TSH is improving from previous. This could be contributing factor to her hypothermia and hypotension. Patient is bradycardic but she is ventricularly paced; since her baseline. She is not obtunded, not hyponatremic, not hypoglycemic. She is hypercapnic though this is chronic. Clinically, patient is not in myxedema coma but has hypothyroid. Hospitalist was again paged and updated as to the above so that hypothyroid management can be initiated tonight. Chest x-ray: XR/XR chest 1V portable IMPRESSION: No significant change in appearance of moderate CHF and multifocal airspace opacity throughout both lungs, likely a combination of asymmetric edema and atelectasis. However, superimposed pneumonia is also a diagnostic consideration. D/ / 08/05/2017 22:10:22 Luis Alberto Hyde MD / [facility] Interpreting Provider: Luis Alberto Hyde MD Vital Signs Temperature 0 F L 08/05/17 16:01 Pulse Rate 51 08/05/17 16:01 Respiratory Rate 20 08/05/17 16:01 Blood Pressure 77/50 08/05/17 16:01 O2 Sat by Pulse Oximetry 100 08/05/17 16:01 Temperature 93.0 F L 08/05/17 22:59 Pulse Rate 50 08/05/17 22:59 Respiratory Rate 15 08/05/17 22:59 Blood Pressure 90/57 08/05/17 22:59 O2 Sat by Pulse Oximetry 100 08/05/17 22:59 Oxygen Delivery Oxygen Delivery Nasal Cannula Procedures - Central Line Placement Right IJ Central Line Inserted*: Yes Central Line Catheter Replacement*: No Central Line Insertion: elective, emergent Consent Obtained: written consent Procedural Pause: verify patient name and date of , timeout performed per policy, izabela and assess the site, assemble equipment and verify supplies, perform hand hygiene Patient Placed on Monitor/Pulse Ox: Yes During the Procedure: clinician is wearing sterile gloves, cap, mask,& gown during insertion, sterile field and sterile technique are maintained, patient's face is covered with drape or mask and wearing a cap, everyone in room is wearing a mask Central Line Prep: Povidone-Iodine 1% Prep the Procedure Site: apply chloraprep to the skin using a back and forth scrubbing motion, apply chloraprep for 30 seconds (upper body), 1-2 min ( femoral sites), drape the patient with a full body drape Local Anesthetic: lidocaine 1% Amount of anesthesia used (mL): 4 Ultrasound Used for Placement: Yes Central Line Lumen Inserted: triple Post Procedure: sutured in place, good blood return, all ports aspirated, flushed, capped, sterile dressing applied, guide wire removed and visualized, dressing is dated Post Procedure X-Ray: tip of catheter in good position, no pneumothorax seen Patient Tolerated Procedure: well, no complications Complications: none Name of Clinician Inserting Central Line: Armaan Soria DO Clinician Assisting/Completing Checklist: Errol Bey MD Date: 08/05/17 Time: 22:20 Medical Decision Making - Lab Data Result diagrams: 08/05/17 21:15 08/05/17 21:15 Lab Results 08/05/17 08/05/17 08/05/17 Range/Units 16:50 16:50 16:50 PT 10.8 (9.4-12.1) Seconds INR 1.0 Sodium 139 (136-145) mEq/L Potassium 4.2 (3.5-5.1) mEq/L Chloride 96 L (98-107) mEq/L Carbon Dioxide 43 H* (23-29) mEq/L BUN 31 H (8-23) mg/dL Creatinine 1.48 H (0.60-1.20) mg/dL Est GFR ( Amer) 41 L (> 60) Est GFR (Non-Af Amer) 34 L (> 60) BUN/Creatinine Ratio 21 (6-26) Glucose 88 (70-105) mg/dL Calculated Osmolality 294 (280-300) Calcium 8.9 (8.6-10.3) mg/dL TSH 29.467 H (0.340-5.600) mcIU/mL Blood Type O POSITIVE Antibody Screen NEGATIVE Crossmatch See Detail
[2017-08-05 22:34] LABS: Basophils % 0.2 %; Nucleated Red Blood Cells 0.5 /100 WBC (0)
[2017-08-05 22:38] LABS: Eosinophils # 0.1 K/mcL (0.0-0.6); Eosinophils % 1.2 %; Hematocrit 22.8 % (35.3-44.9); Hemoglobin 6.7 g/dL (11.5-15.4); Immature Granulocytes % 3.1 % (0-4); Lymphocytes # 0.5 K/mcL (0.6-4.6); Lymphocytes % 11.3 %; Mean Corpuscular HGB Conc 29.4 g/dL (31.6-35.5); Mean Corpuscular Hemoglobin 28.8 pg (28.0-33.3); Mean Corpuscular Volume 97.9 fL (83.0-100.0); Mean Platelet Volume 10.4 fL (9.4-12.4); Monocytes # 0.3 K/mcL (0.0-1.3); Monocytes % 7.2 %; Neutrophils # 3.2 K/mcL (1.6-8.9); Red Blood Count 2.33 M/mcL (3.82-4.97); Red Cell Distribution Width 17.9 % (11.5-14.5)
[2017-08-05 22:39] LABS: Platelet Count 87 K/mcL (140-400)
[2017-08-05 22:54] LABS: Calcium 8.5 mg/dL (8.6-10.3); Magnesium 2.1 mg/dL (1.6-2.6); Potassium 3.7 mEq/L (3.5-5.1)
[2017-08-05 23:13] LABS: Thyroid Stimulating Hormone 29.467 mcIU/mL (0.340-5.600)
[2017-08-05] MEDS ORDERED: methylPREDNISolone 125 MG/2 ML VIAL IVP ONE (23:24)
[2017-08-05] MEDS ORDERED: 0.9 % Sodium Chloride 250 ML ONE (23:30)
[2017-08-05] MEDS ORDERED: 0.9 % Sodium Chloride 1,000 ML IVC SCH (23:45)
[2017-08-05] MEDS ORDERED: Levothyroxine Sodium 200 MCG VIAL IVP ONE (23:51)
[2017-08-06] MEDS: (Breo Ellipta 200-25 Mcg Inh) IH SCH ×2 (00:04→07:22)
--- NOTE | 2017-08-06 00:21 | Event Note ---
Date of Encounter: 08/06/17 Time of Encounter: 00:21 Seen and examined independently at bedside on 08/06/17 CHFrEF, COPD, Chronic hypoxic resp failure on O2, Cancer, Chronic anemia dmitted foExam: Hypotensive, hypothermia, Awake, alert and oriented, not in distress, pitting upper and lower extremties edema. Chest is CTAB on anterior auscultation. Abd is soft and not tender *Shock-likely hemorrhagic, r/o cardiogenic, obtain ECHO. Did not respond to IVF , start levophed, transfer to ICU. Unlikely septic, no chest symptoms, CXR is noted for bilateral pulm edema. O2 requirement is at baseline and patient has no new chest symptoms, unlikely PNA. Send blood culture *Acute blood loss anemia, HB 6.7, baseline 8-transfuse 2 RBCS , HB q6hr *GIB: Hx of andiodysplasias, GI is consulted, NPO for endoscopy, IV PPI BID *Myxedema without coma-received IV steroids and Thyroxine, TSH improving compared to prior admission, continue home dose *Hypothermia-likely due to hypotension, continue mir hugger, follow blood cultures *Afib with slow VR-Has ICD, HR is at baseline, continue to monitor *Chronic metabl alkalosis from severe COPD with possible retention-at baseline, BiPAP *CHFrEF: Rpt ECHO a.m, no lasix despite pulm edema on CXR, continue to monitor closely Critically ill, full code, rest as in resident physician's documentation
--- NOTE | 2017-08-06 01:17 | Internal Med History&Physical ---
<Dee Brooks H - Last Filed: 08/06/17 02:36> Date of Encounter: 08/06/17 Time of Encounter: 01:13 Internal Medicine - H&P: HPI Chief complaint: bnormal labs, hypotension Admitted From: Emergency Dept Plans for Post Hospital Care: Home History of present illness: Ms. 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 Patient has been the recipient of multiple transfusions of PRBCs. In the ED, she was complaining of weakness and fatigue. She is denying hematochezia. She reports history of melena, however, she states she is on iron supplements. Patient denying any fevers, chills, or night sweats. She denies nausea, vomiting, chest pain, palpitations, dyspnea, or diaphoresis. She denies any recent changes in her bowel or bladder habits. She denies any focal neurological weakness, numbness, tingling, or changes in vision. In the ED, patient was found to be hypothermic and hypotensive. Her TSH was markedly elevated and she was given a dose of IV thyroxine and one-time dose of steroids although it was noted she was not actually in myxedema coma as she was alert, oriented and responsive. Patient was started on IV fluid resuscitation and ordered 2 units of PRBCs to be transfused. A bear hugger was also placed in addition to a right IJ central line. The ED spoke with Dr. Zelaya who recommended admission to the hospital for likely endoscopy and colonoscopy tomorrow. Chest x-ray was noted to be stable from previous chest x-ray with appearance of moderate CHF and multifocal airspace opacity throughout both lungs. Past Med Surg Social Fam HX - Past Medical History Attestation: Yes The following information was validated with the patient. Source: patient Medical history: asthma, atrial fibrillation, cancer, cardiomyopathy, CHF, COPD , GERD, GI bleed, renal disease, thyroid disease, valvular heart disease Psychiatric history: anxiety, depression - Past Surgical History Surgical History: appendectomy, breast surgery, cancer surgery, heart valve replacement, hysterectomy, pacemaker/AICD - Social History Smoking Status: Former smoker Smokeless Tobacco Status: No Alcohol use: none Drug use: none - Family History Mother Family Member Ethnicity: Non- Living Status: Hx Family Cardiac Disorders: No Hx Family Respiratory Disorders: No Hx Family Cancer: Yes Hx Family GI Disorders: No Hx Family Endocrine Disorder: No Hx Family Neuromuscular Disorders: No Hx Family Neurologic Disorders: No Hx Family HEENT Disorders: No Hx Family Autoimmune Disorders: No Father Living Status: Hx Family Cardiac Disorders: Yes Hx Family Respiratory Disorders: No Hx Family Cancer: Yes Hx Family GI Disorders: No Hx Family Endocrine Disorder: No Hx Family Neuromuscular Disorders: No Hx Family Neurologic Disorders: No Hx Family HEENT Disorders: No Hx Family Autoimmune Disorders: No Internal Medicine - H&P: Meds Allopurinol [Zyloprim 300 MG] 300 mg PO DAILY 01/12/16 [History] Calcium Carbonate [Calcium] 1,500 mg PO BID 04/22/16 [History] Oxygen 4 l NS AD 04/22/16 [History] Folic Acid 1 mg PO DAILY 05/28/16 [History] Ranitidine HCl [Acid Molder Sweep] 150 mg PO BID 07/12/16 [History] Albuterol Sulfate [Ventolin Hfa] 1 - 2 puff IH Q4-6H PRN 10/14/16 [History] Umeclidinium [place] [Incruse Ellipta] 1 puff IH QPM 10/14/16 [History] Sacubitril/Valsartan 24/26 mg [Entresto 24 mg-26 mg Tablet] 1 tab PO BID [History] Fluticasone/Vilanterol [Breo Ellipta 200-25 Mcg INH] 1 each IH BID 06/16/17 [ History] Ondansetron ODT [Zofran ODT] 4 mg SL Q8H PRN 06/16/17 [History] Amiodarone [Cordarone] 200 mg PO DAILY #0 06/19/17 [Rx] FLUoxetine HCl [Prozac] 20 mg PO HS 07/08/17 [History] Ferrous Gluconate 324 mg PO 1200 07/08/17 [History] Ropinirole HCl [Requip] 4 mg PO HS 07/09/17 [History] Omeprazole [PriLOSEC] 40 mg PO BID capsule. 07/11/17 [Rx] Sucralfate [Carafate] 1 gm PO QIDAC tablet 07/11/17 [Rx] ALPRAZolam [Xanax 0.25 MG Tablet] 0.25 mg PO HS 5 Days #5 tablet 07/28/17 [Rx] Levothyroxine [Synthroid] 150 mcg PO DAILY@0630 tablet 07/28/17 [Rx] 3 Allergy/AdvReac Type Severity Reaction Status Date / Time Penicillins Allergy Hives Verified 08/05/17 14:15 Sulfa (Sulfonamide Allergy Hives Verified 08/05/17 14:15 Antibiotics) gabapentin AdvReac Hallucinati Verified 08/05/17 14:15 ng Oxycodone [From Percocet] AdvReac Hallucinati Verified 08/05/17 14:15 ng All Systems PM: A 10-system review of systems was performed and is negative for pertinent findings except as documented above in the HPI. - Constitutional Constitutional: lethargy, weakness, no chills, no fever(s), no night sweats - EENT Eyes: no blurry vision, no other visual disturbances Nose, mouth and throat: other, no nasal congestion, no nasal discharge - Cardiovascular Cardiovascular ROS IM: lightheadedness, no chest pain, no claudication, no diaphoresis, no dyspnea, no dyspnea on exertion, no irregular heart rhythm, no orthopnea, no palpitations, no paroxysmal nocturnal dyspnea - Respiratory Respiratory: cough, dyspnea - Gastrointestinal Gastrointestinal: melena, no abdominal pain, no coffee ground emesis, no diarrhea, no heartburn, no hematemesis, no hematochezia, no loose stools, no nausea, no vomiting - Integumentary Integumentary IM: no rash, no jaundice - Neurological Neurological ROS: no abnormal speech, no focal weakness, no other visual disturbances - Endocrine Endocrine IM: cold intolerance, fatigue - Constitutional Vitals: Temp Pulse Resp BP Pulse Ox 93.8 F L 56 20 65/47 93 08/05/17 23:53 08/05/17 23:53 08/05/17 23:53 08/05/17 23:53 08/05/17 23:53 General appearance: Present: cooperative, mild distress, A&O X 3, pleasant - Head Head exam: Present: atraumatic, normocephalic Additional comments: Diffuse mild edema, puffy appearance surround eyes and face. - Eye Eye exam: Present: conjuntiva pink, sclera anicteric. Absent: conjunctival injection - Neck Neck exam general surgery: Present: supple, trachea midline. Absent: lymphadenopathy - Respiratory Respiratory exam: Present: CTAB. Absent: accessory muscle use, rales, rhonchi, wheezes - Cardiovascular Cardiovascular exam: Present: RRR, +S1, +S2. Absent: diastolic murmur, gallop, rubs, systolic murmur Additional comments: Bilateral upper extremities edematous - GI/Abdominal GI/Abdominal exam: Present: normal bowel sounds, soft, no peritoneal signs. Absent: distended, firm, guarding, rebound, tenderness - Extremities Exam Extremities exam: Present: warm, radial pulses palpable and symmetrical. Absent : calf tenderness, cyanotic - Neurological Exam Neurological exam: Present: alert, CN II-XII intact, oriented X3, no focal deficits. Absent: pronater drift, facial droop, speech deficit - Skin Skin exam: Present: dry, intact. Absent: cyanosis, mottled Internal Med - H&P Results - Labs CBC & Chem 7: 08/05/17 21:15 08/05/17 21:15 Labs: Short CBC 08/05/17 Range/Units 21:15 WBC 4.2 L (4.3-11.1) K/mcL Hgb 6.7 L (11.5-15.4) g/dL Hct 22.8 L (35.3-44.9) % Plt Count 87 L (140-400) K/mcL Neutrophils # 3.2 (1.6-8.9) K/mcL BMP 08/05/17 21:15 Sodium 140 Potassium 3.7 Chloride 99 Carbon Dioxide 42 H* BUN 30 H Creatinine 1.36 H Glucose 99 Calcium 8.5 L Urine 08/05/17 Range/Units 21:26 Urine Color Yellow (Yellow) Urine Clarity Cloudy A (Clear) Urine pH 5.5 (5.0-8.0) pH Units Ur Specific [place] 1.021 (1.010-1.025) Urine Protein 100 H (Neg-Trace) mg/dL Urine Glucose (UA) Normal (Normal) mg/dL - Impressions ITS Impressions Chest X-Ray 08/05/17 21:09 IMPRESSION: No significant change in appearance of moderate CHF and multifocal airspace opacity throughout both lungs, likely a combination of asymmetric edema and atelectasis. However, superimposed pneumonia is also a diagnostic consideration. D/ / 08/05/2017 22:10:22 Luis Alberto Hyde MD / tito Interpreting Provider: Luis Alberto Hyde MD Chest X-Ray 08/05/17 22:03 IMPRESSION: No pneumothorax status post right internal jugular central venous catheter placement. Tip is in the expected location. D/ / Thom Pierre MD / Thom Pierre MD Interpreting Provider: Thom Pierre MD - Assessment and plan (1) Shock Current Visit: Yes Status: Acute Assessment and plan: 76-year-old female with multiple medical comorbidities directed to the ED during outpatient visit with Dr. Zelaya today, found to be hypotensive, anemic, and hypothermic. Likely hemorrhagic secondary to GI bleeding. -Patient originally moved to 2 N, however, after 2.5 L of fluid in and infusion of 1 bag of pRBCs, patient persistently hypotensive. -Patient initiated on pressor support with Levophed and transferred to the ICU. -Continue resuscitation with packed red blood cells, pressor support, and higher level of nursing care. -will get echocardiogram in the AM to determine if any cardiogenic component to hypotension-patient's most recent echo in 03/2017 with LVEF of 45%. (2) Acute blood loss anemia Current Visit: No Status: Acute Assessment and plan: Likely due to GI bleed as patient with history of multiple hospitalizations secondary to GI bleed, multiple angiodysplastic lesions found on prior endoscopies. -Patient no longer on anticoagulation or Plavix. -NPO -Dr. Zelaya aware, endoscopy when hemodynamically stable. -IV Protonix 40 mg BID. -H&H q6hr. (3) GI bleed Current Visit: No Status: Acute Assessment and plan: Patient with angiectasia on 07/10/2017 EGD. Not currently on any anticoagulation. -Keep NPO for endoscopy once hemodynamically stable. Qualifiers: GI bleed type/associated pathology: unspecified gastrointestinal hemorrhage type Qualified Code(s): K92.2 - Gastrointestinal hemorrhage, unspecified (4) Hypothermia Current Visit: No Status: Acute Assessment and plan: IV thyroxine and IV steroids given in the ED for myxedema as potential cause for hypothermia. Suspect shock contributing to hypothermia as patient's TSH, while markedly elevated, has been improving since last hospitalization. -Continue pressor support. -Continue Bear hugger Qualifiers: Encounter type: initial encounter Qualified Code(s): T68.XXXA - Hypothermia , initial encounter (5) Myxedema Current Visit: Yes Status: Acute Assessment and plan: TSH improving. Patient has received 1 dose of IV levothyroxine in the ED. -Resume home levothyroxine. (6) Pancytopenia Current Visit: Yes Status: Acute Assessment and plan: Chronic pancytopenia. -Patient follows with heme/onc as an outpatient. (7) Atrial fibrillation with slow ventricular response Current Visit: Yes Status: Acute Assessment and plan: Patient with AICD in place. -Hold BB for now. (8) Metabolic alkalosis Current Visit: Yes Status: Acute Assessment and plan: Chronic metabolic alkalosis from severe COPD and CO2 retention. -BiPAP (9) Chronic kidney disease, stage 3 Current Visit: No Status: Chronic Assessment and plan: avoid nephrotoxic agents. (10) Congestive heart failure (CHF) Current Visit: Yes Status: Acute Assessment and plan: Echocardiogram in 04/03/2017 shows LVEF of 45%, mild global LV systolic dysfunction, atypical septal motion consistent with postop status, mildly dilated LV, diastolic dysfunction, dilated RV with normal function, severe biatrial enlargement, s/p mechanical aortic valve, mild tricuspid regurgitation , and mild pulmonary hypertension. -Due to patient's worsening hemodynamic status, we will get an echocardiogram in the AM. Qualifiers: Heart failure type: combined systolic and diastolic Heart failure chronicity: chronic Qualified Code(s): I50.42 - 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 <Frankie Hanna T - Last Filed: 08/06/17 02:40> Date of Encounter: 08/06/17 Internal Medicine - H&P: HPI History of present illness: Ms. Higginbotham is a 76 year old female All Systems PM: A 10-system review of systems was performed and is negative for pertinent findings except as documented above in the HPI. - Constitutional Vitals: Temp Pulse Resp BP Pulse Ox 96.1 F L 50 14 90/44 90 08/06/17 02:20 08/06/17 02:20 08/06/17 02:20 08/06/17 02:20 08/06/17 02:00 Internal Med - H&P Results - Labs CBC & Chem 7: 08/05/17 21:15 08/05/17 21:15 Labs: Short CBC 08/05/17 Range/Units 21:15 WBC 4.2 L (4.3-11.1) K/mcL Hgb 6.7 L (11.5-15.4) g/dL Hct 22.8 L (35.3-44.9) % Plt Count 87 L (140-400) K/mcL Neutrophils # 3.2 (1.6-8.9) K/mcL BMP 08/05/17 21:15 Sodium 140 Potassium 3.7 Chloride 99 Carbon Dioxide 42 H* BUN 30 H Creatinine 1.36 H Glucose 99 Calcium 8.5 L Urine 08/05/17 Range/Units 21:26 Urine Color Yellow (Yellow) Urine Clarity Cloudy A (Clear) Urine pH 5.5 (5.0-8.0) pH Units Ur Specific [place] 1.021 (1.010-1.025) Urine Protein 100 H (Neg-Trace) mg/dL Urine Glucose (UA) Normal (Normal) mg/dL - Impressions ITS Impressions Chest X-Ray 08/05/17 21:09 IMPRESSION: No significant change in appearance of moderate CHF and multifocal airspace opacity throughout both lungs, likely a combination of asymmetric edema and atelectasis. However, superimposed pneumonia is also a diagnostic consideration. D/ / 08/05/2017 22:10:22 Luis Alberto Hyde MD / [facility] Inter[facility]ting Provider: Luis Alberto Hyde MD Chest X-Ray 08/05/17 22:03 IMPRESSION: No pneumothorax status post right internal jugular central venous catheter placement. Tip is in the expected location. D/ / Thom Pierre MD / Thom Pierre MD Interpreting Provider: Thom Pierre MD - Attending Attestation Seen and examined independently multiple times See event note for details Agree with plan as documented in Dr. Brooks's documentation. - Assessment and plan (1) Acute blood loss anemia Current Visit: No Status: Acute (2) GI bleed Current Visit: No Status: Acute Qualifiers: GI bleed type/associated pathology: unspecified gastrointestinal hemorrhage type Qualified Code(s): K92.2 - Gastrointestinal hemorrhage, unspecified (3) Chronic kidney disease, stage 3 Current Visit: No Status: Chronic (4) Hypothermia Current Visit: No Status: Acute Qualifiers: Encounter type: initial encounter Qualified Code(s): T68.XXXA - Hypothermia , initial encounter (5) Shock Current Visit: Yes Status: Acute (6) Myxedema Current Visit: Yes Status: Acute (7) Pancytopenia Current Visit: Yes Status: Acute (8) Atrial fibrillation with slow ventricular response Current Visit: Yes Status: Acute (9) Metabolic alkalosis Current Visit: Yes Status: Acute (10) Congestive heart failure (CHF) Current Visit: Yes Status: Acute Qualifiers: Heart failure type: combined systolic and diastolic Heart failure chronicity: chronic Qualified Code(s): I50.42 - 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
[2017-08-06] MEDS: FLUoxetine 20 MG CAPSULE PO SCH ×2 (02:17→20:18)
[2017-08-06] MEDS: rOPINIRole 1 MG TABLET PO SCH ×2 (02:17→20:18)
[2017-08-06] MEDS: ALPRAZolam 0.5 MG TABLET PO SCH ×2 (02:17→20:18)
[2017-08-06] MEDS: Sucralfate 1 GM TABLET PO SCH ×5 (02:17→20:19)
[2017-08-06] MEDS: Norepinephrine 4 MG in D5% in Water 250 ML IVC SCH ×3 (02:18→21:05)
[2017-08-06] MEDS: Pantoprazole 40 MG VIAL IVP SCH ×2 (05:32→16:51)
[2017-08-06 07:13] LABS: Hematocrit 31.5 % (35.3-44.9); Mean Corpuscular HGB Conc 30.8 g/dL (31.6-35.5); Mean Corpuscular Hemoglobin 29.9 pg (28.0-33.3); Mean Corpuscular Volume 97.2 fL (83.0-100.0); Mean Platelet Volume 10.9 fL (9.4-12.4); Nucleated Red Blood Cells 0.5 /100 WBC (0); Platelet Count 146 K/mcL (140-400); Red Blood Count 3.24 M/mcL (3.82-4.97); Red Cell Distribution Width 17.2 % (11.5-14.5)
[2017-08-06 07:32] LABS: Hemoglobin 9.7 g/dL (11.5-15.4)
[2017-08-06 07:52] LABS: Calcium 8.5 mg/dL (8.6-10.3); Potassium 4.2 mEq/L (3.5-5.1)
[2017-08-06] MEDS: Folic Acid 1 MG TABLET PO SCH (08:08)
[2017-08-06] MEDS: Hydrocortisone Sodium Succ 100 MG/2 ML VIAL IVP SCH ×3 (08:13→23:20)
[2017-08-06] MEDS: *HR* Amiodarone 200 MG TABLET PO SCH (08:13)
--- NOTE | 2017-08-06 08:17 | Pulmonology Consult Note ---
<Carlos Pennington W - Last Filed: 08/06/17 10:42> Date of Encounter: 08/06/17 Medications and Allergies Allopurinol [Zyloprim 300 MG] 300 mg PO DAILY 01/12/16 [History] Calcium Carbonate [Calcium] 1,500 mg PO BID 04/22/16 [History] Oxygen 4 l NS AD 04/22/16 [History] Folic Acid 1 mg PO DAILY 05/28/16 [History] Ranitidine HCl [Acid Audio/Video Technician] 150 mg PO BID 07/12/16 [History] Albuterol Sulfate [Ventolin Hfa] 1 - 2 puff IH Q4-6H PRN 10/14/16 [History] Umeclidinium [place] [Incruse Ellipta] 1 puff IH QPM 10/14/16 [History] Sacubitril/Valsartan 24/26 mg [Entresto 24 mg-26 mg Tablet] 1 tab PO BID [History] Fluticasone/Vilanterol [Breo Ellipta 200-25 Mcg INH] 1 each IH BID 06/16/17 [ History] Ondansetron ODT [Zofran ODT] 4 mg SL Q8H PRN 06/16/17 [History] Amiodarone [Cordarone] 200 mg PO DAILY #0 06/19/17 [Rx] FLUoxetine HCl [Prozac] 20 mg PO HS 07/08/17 [History] Ferrous Gluconate 324 mg PO 1200 07/08/17 [History] Ropinirole HCl [Requip] 4 mg PO HS 07/09/17 [History] Omeprazole [PriLOSEC] 40 mg PO BID capsule. 07/11/17 [Rx] Sucralfate [Carafate] 1 gm PO QIDAC tablet 07/11/17 [Rx] ALPRAZolam [Xanax 0.25 MG Tablet] 0.25 mg PO HS 5 Days #5 tablet 07/28/17 [Rx] Levothyroxine [Synthroid] 150 mcg PO DAILY@0630 tablet 07/28/17 [Rx] 3 Allergy/AdvReac Type Severity Reaction Status Date / Time Penicillins Allergy Hives Verified 08/05/17 14:15 Sulfa (Sulfonamide Allergy Hives Verified 08/05/17 14:15 Antibiotics) gabapentin AdvReac Hallucinati Verified 08/05/17 14:15 ng Oxycodone [From Percocet] AdvReac Hallucinati Verified 08/05/17 14:15 ng All Systems: The remainder of the systems were reviewed and are negative Physical Examination Vital Signs: Vital Signs, Last 4 Hours Temp Pulse Resp BP Pulse Ox 08/06/17 09:00 54 16 106/48 98 08/06/17 08:00 53 14 98/52 98 08/06/17 07:41 55 08/06/17 07:00 97.4 F L 56 16 98/61 97 08/06/17 06:00 50 12 82/43 97 08/06/17 05:36 97.4 F L 50 12 81/59 96 Results - Laboratory Findings CBC and BMP: 08/06/17 04:00 08/06/17 04:00 PT/INR, D-dimer PT 10.8 Seconds (9.4-12.1) 08/05/17 16:50 Abnormal lab findings: Abnormal lab results RBC 3.24 M/mcL (3.82-4.97) L 08/06/17 04:00 Hgb 9.7 g/dL (11.5-15.4) L D 08/06/17 04:00 Hct 31.5 % (35.3-44.9) L 08/06/17 04:00 MCHC 30.8 g/dL (31.6-35.5) L 08/06/17 04:00 RDW 17.2 % (11.5-14.5) H 08/06/17 04:00 Lymphocytes # 0.5 K/mcL (0.6-4.6) L 08/05/17 21:15 Nucleated RBCs/100 WBC 0.5 /100 WBC (0) H 08/06/17 04:00 Carbon Dioxide 38 mEq/L (23-29) H 08/06/17 04:00 BUN 30 mg/dL (8-23) H 08/06/17 04:00 Creatinine 1.34 mg/dL (0.60-1.20) H 08/06/17 04:00 Est GFR ( Amer) 46 (> 60) L 08/06/17 04:00 Est GFR (Non-Af Amer) 38 (> 60) L 08/06/17 04:00 Glucose 165 mg/dL (70-105) H 08/06/17 04:00 Calcium 8.5 mg/dL (8.6-10.3) L 08/06/17 04:00 TSH 29.467 mcIU/mL (0.340-5.600) H 08/05/17 16:50 Urine Clarity Cloudy (Clear) A 08/05/17 21:26 Urine Protein 100 mg/dL (Neg-Trace) H 08/05/17 21:26 Urine Bilirubin Small (Negative) H 08/05/17 21:26 Ur Leukocyte Esterase Small (Negative) H 08/05/17 21:26 Urine Microscopic WBC 5-15 per hpf (0-3) H 08/05/17 21:26 Ur Squamous Epith Cells Many per lpf (None-Few) H 08/05/17 21:26 Ur Renal Epithelial Cell Moderate per hpf (None-Few) H 08/05/17 21:26 Amorphous Sediment Moderate (Few) H 08/05/17 21:26 Ur Culture Indicated? NO. (NO) A 08/05/17 21:26 - Clinical Findings Intake & Output: Intake & Output 08/05/17 08/06/17 08/06/17 23:59 07:59 15:59 Intake Total 0 50 893 / 893 Output Total 325 / 325 Balance 0 / 50 568 / 568 Weight 81.5 kg 90.1 kg Consult Discharge Plan - Plan Referrals: Francisco Melgar Jr [Primary Care Provider] - - Attending Attestation I examined this patient and my medical decision-making was reviewed with the Resident Physician. I agree with the documented findings, disposition and treatment plan as described except to the extent set forth below. We independently had [id number] contact with the patient I spent 32min of Critical Care time with this patient. It involved decision making of high complexity to assess, manipulate, and support vital organ system failure and/or to prevent further life threatening deterioration of the patient' s condition. The time involved in the performance of separately reportable procedures was not counted toward critical care time. Patient seen and examined at bedside Labs, radiology, chart personally reviewed. Management was reviewed during multidisciplinary critical care rounds. 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 We will check ABG to make sure there is no significant CO2 retention Pulm: Chronic hypoxic hypercapnic respiratory failure secondary to CHF and COPD she also has TRAY is on nocturnal BiPAP. Check ABG now and use noninvasive ventilation as needed and will continue noninvasive ventilation at night. Otherwise acceptable oxygenation today on nasal cannula Cards: Decompensated heart failure with reduced ejection fraction requiring vasopressor support plan for diuresis today repeat echocardiogram pending I suspect this is related in large part to hypothyroidism lactate within normal limits. She has bradycardia possibly related to hypothyroidism and she is ventricularly paced FEN-GI: Nothing by mouth for now GI consultation appreciated she refused endoscopy at last visit Renal: Chronic kidney disease at baseline starting diuresis today for volume overload data trend electrolytes ID: No clear infectious etiology at this time patient has had pancultures performed and we will have low threshold for initiation of antimicrobials Heme/Onc: SCDs for DVT prophylaxis given history of GI hemorrhage presentation with acute on chronic anemia. I impression is that there is no acute GI hemorrhage but more slow downtrending which could be related to endocrine dysfunction chronic illness and possibly chronic albeit slow GI bleeding from AVMs Endo: Severe hypothyroidism that has been poorly treated is unclear patient was receiving outpatient dose of thyroxine she had a similar presentation a few weeks back which responded to IV formulation of thyroxine which we have reinstituted at this time free T3 and T4 has increased since that time but she remains hypothermic and bradycardic we will give dose of stress dose hydrocortisone today as well and Glucose will be Monitored Integ/MSK: Skin Care per routine ICU Nursing Protocol to prevent ulcers. 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 Patient has been admitted for severe hypothyroidism in the past requiring increased use of thyroxine On arrival the patient did have significant hypothermia, hypotension, anemia Her TSH on arrival was 29.47, free T3 2 0.53, free T4 1 0.64 Symptoms consistent with myxedema such as periocular and pretibial or edema, significant weakness, cardiomyopathy The patient received 300mcg IV levothyroxine in the ED We will continue the patient on 150 g levothyroxine IV at this time (2) Acute exacerbation of CHF (congestive heart failure) Current Visit: Yes Status: Acute Acute exacerbation of congestive heart failure secondary to severe hypothyroidism Chest x-ray does demonstrate moderate CHF and pulmonary vascular congestion Echocardiogram March 2017 does demonstrate an ejection fraction of 45%, diastolic dysfunction with moderate to severe mitral regurgitation The patient was hypotensive on admission and hypothermic We will continue pressors, and diuresis gently as the patient tolerates Qualifiers: Qualified Code(s): I50.43 - Acute on chronic combined systolic (congestive) and diastolic (congestive) heart failure (3) Hypotension Current Visit: Yes Status: Acute Hypotension, likely secondary to cardiogenic shock Patient has myxedema due to severe hypothyroidism I suspect that this is the cause of the patient's acute exacerbation of CHF and hypotension The patient has been on Levophed which has increased her map We gave the patient stress dose of hydrocortisone today Infectious etiology is unlikely, however we will monitor for signs of infection and consider antibiotics if necessary Qualifiers: Hypotension type: other hypotension type Qualified Code(s): I95.89 - Other hypotension (4) Acute blood loss anemia Current Visit: Yes Status: Acute Acute anemia, hemoglobin 6.7 on arrival Improved status post 2 units packed red blood cells The patient's hemoglobin is likely secondary to chronic blood loss and macrocytic anemia Macrocytosis may be secondary to dietary deficiency versus severe hypothyroidism We will check a peripheral smear, as well as a B12, MMA, folate Continue to monitor daily CBCs Gastroenterology was consulted from the ED (5) Atrial fibrillation with slow ventricular response Current Visit: Yes Status: Acute Currently stable on levofed and home meds Patient is not a candidate for anticoagulation due to GI bleeding Continuous cardiac monitoring (6) Weakness Current Visit: Yes Status: Acute Likely secondary to myxedema plus symptomatically anemia We will work on treating the underlying causes to reduce weakness PT and OT consult when the patient can tolerate (7) COPD (chronic obstructive pulmonary disease) Current Visit: No Status: Chronic COPD without acute exacerbation We will give the patient scheduled duo nebs and as needed albuterol We will give the patient BiPAP overnight Qualifiers: COPD type: chronic bronchitis Chronic bronchitis type: mucopurulent Qualified Code(s): J41.1 - Mucopurulent chronic bronchitis (8) H/O aortic valve replacement Current Visit: No Status: Chronic (9) DVT prophylaxis Current Visit: Yes Status: Chronic SCDs due to GI bleeding History of Present Illness Consult date: 08/06/17 Requesting physician: Frankie Hanna Reason for consult: other (Shock) Chief complaint: Told to come to the hospital for symptomatic anemia by GI History of present illness: Mrs. 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 The patient apparently has a history of multiple GI bleeds which required transfusions in the past. She also still with severe iron deficiency anemia for which she has seen hematology oncology and receives infusions of iron. The patient this time is feeling very weak and fatigued. When asked, she does say that she has had dark and tarry stools, however she is unable to determine whether these are due to melena versus stool discoloration secondary to iron supplementation. Additionally, the patient does admit to some nausea and vomiting which occurred approximately 3 or 4 days ago prior to admission. She has no other acute complaints at this time. In the ED, the patient was found to have a temperature of 92 degrees Fahrenheit , and she was hypotensive. Her TSH was found to be 29.47, and her hemoglobin was found to be 6.7. She received 2 units of packed red blood cells overnight which did effectively raise her hemoglobin to 9.7. Her lactic acid was 0.5, blood cultures and urine cultures are currently pending. Chest x-ray demonstrated stable exam, with appearance of moderate CHF and multifocal airspace abnormality throughout both lung. She became significantly hypotensive overnight requiring the insertion of a right internal jugular central venous catheter and the use of levofed. Past Med Surg Social Fam HX - Past Medical History Medical history: asthma, atrial fibrillation, cancer, cardiomyopathy, CHF, COPD , GERD, GI bleed, renal disease, thyroid disease, valvular heart disease Psychiatric history: anxiety, depression - Past Surgical History Surgical History: appendectomy, breast surgery, cancer surgery, heart valve replacement, hysterectomy, pacemaker/AICD - Social History Smoking Status: Former smoker Smokeless Tobacco Status: No Alcohol use: none Drug use: none - Family History Mother Family Member Ethnicity: Non- Living Status: Hx Family Cardiac Disorders: No Hx Family Respiratory Disorders: No Hx Family Cancer: Yes Hx Family GI Disorders: No Hx Family Endocrine Disorder: No Hx Family Neuromuscular Disorders: No Hx Family Neurologic Disorders: No Hx Family HEENT Disorders: No Hx Family Autoimmune Disorders: No Father Living Status: Hx Family Cardiac Disorders: Yes Hx Family Respiratory Disorders: No Hx Family Cancer: Yes Hx Family GI Disorders: No Hx Family Endocrine Disorder: No Hx Family Neuromuscular Disorders: No Hx Family Neurologic Disorders: No Hx Family HEENT Disorders: No Hx Family Autoimmune Disorders: No All Systems: The remainder of the systems were reviewed and are negative Review of Systems: Constitutional: Admits to chills, general fatigue Head/Neck: Denies SHELBY, neck stiffness EENT: Denies vision changes/blurriness, rhinorrhea, congestion, sore throat CVS: Denies chest pain, palpitations, PARSONS, orthopnea, PND. Admits to significant bilateral lower extremity edema that is new. Pulm: Denies SOB, cough, sputum, hemoptysis, wheezing GI: Denies abdominal pain, diarrhea, constipation. Admits to dark tarry stools , and she admits to 1 episode of nausea and vomiting that occurred 3 or 4 days ago. : Denies dysuria, increased frequency, urgency, hematuria Heme: Denies ease of bleeding or bruising MSK: Denies joint pain, limited ROM Skin: Denies rashes, ulcers, color changes Neuro: Denies SHELBY, paresthesias, focal deficits, ataxia Physical Examination Vital Signs: Vital Signs, Last 4 Hours Temp Pulse Resp BP Pulse Ox 08/06/17 07:41 55 08/06/17 07:00 97.4 F L 56 16 98/61 97 08/06/17 06:00 50 12 82/43 97 08/06/17 05:36 97.4 F L 50 12 81/59 96 08/06/17 05:00 50 14 100/51 96 Gen: Vitals noted. No acute distress. AAOx3 HEENT: PERRL/EOMI, oropharynx clear, Normocephalic, atraumatic. Periocular swelling and minimal redness present Neck: Supple. No adenopathy. Right IJ CVC in place with no obvious tissue abnormalities and surrounding tissue Cardiac: RRR, 3/6 systolic murmur heard best over aortic valve, +S1/S2 Pulmonary: CTA bilaterally, no wheezes, rales or rhonchi, equal chest expansion Abdomen: soft, nontender, BS noted, no guarding Back: Nontender throughout. MSK: ROM intact, no joint swelling noted Extremities: 2+ pretibial edema, no apparent cyanosis Neuro: moves all extremities, no focal deficits Psych: Appropriate mood and behavior Results - Laboratory Findings CBC and BMP: 08/06/17 11:20 08/06/17 11:20 PT/INR, D-dimer PT 10.8 Seconds (9.4-12.1) 08/05/17 16:50 Abnormal lab findings: Abnormal lab results RBC 3.24 M/mcL (3.82-4.97) L 08/06/17 04:00 Hgb 9.7 g/dL (11.5-15.4) L D 08/06/17 04:00 Hct 31.5 % (35.3-44.9) L 08/06/17 04:00 MCHC 30.8 g/dL (31.6-35.5) L 08/06/17 04:00 RDW 17.2 % (11.5-14.5) H 08/06/17 04:00 Lymphocytes # 0.5 K/mcL (0.6-4.6) L 08/05/17 21:15 Nucleated RBCs/100 WBC 0.5 /100 WBC (0) H 08/06/17 04:00 Carbon Dioxide 38 mEq/L (23-29) H 08/06/17 04:00 BUN 30 mg/dL (8-23) H 08/06/17 04:00 Creatinine 1.34 mg/dL (0.60-1.20) H 08/06/17 04:00 Est GFR ( Amer) 46 (> 60) L 08/06/17 04:00 Est GFR (Non-Af Amer) 38 (> 60) L 08/06/17 04:00 Glucose 165 mg/dL (70-105) H 08/06/17 04:00 Calcium 8.5 mg/dL (8.6-10.3) L 08/06/17 04:00 TSH 29.467 mcIU/mL (0.340-5.600) H 08/05/17 16:50 Urine Clarity Cloudy (Clear) A 08/05/17 21:26 Urine Protein 100 mg/dL (Neg-Trace) H 08/05/17 21:26 Urine Bilirubin Small (Negative) H 08/05/17 21:26 Ur Leukocyte Esterase Small (Negative) H 08/05/17 21:26 Urine Microscopic WBC 5-15 per hpf (0-3) H 08/05/17 21:26 Ur Squamous Epith Cells Many per lpf (None-Few) H 08/05/17 21:26 Ur Renal Epithelial Cell Moderate per hpf (None-Few) H 08/05/17 21:26 Amorphous Sediment Moderate (Few) H 08/05/17 21:26 Ur Culture Indicated? NO. (NO) A 08/05/17 21:26 - Clinical Findings Intake & Output: Intake & Output 08/05/17 08/06/17 08/06/17 23:59 07:59 15:59 Intake Total 893 / 893 Output Total 325 / 325 Balance 568 / 568 Weight 81.5 kg 90.1 kg
[2017-08-06 09:52] LABS: Basophils # 0.1 K/mcL (0.0-0.2); Lymphocytes # 0.1 K/mcL (0.6-4.6); Monocytes # 0.1 K/mcL (0.0-1.3); Neutrophils # 6.8 K/mcL (1.6-8.9)
[2017-08-06 09:54] LABS: Anisocytosis 1+ (Not Present); Basophilic Stippling 1+ (Not Present); Platelet Estimate Normal (Normal); Polychromasia 1+ (Not Present); Toxic Granulation Present (Not Present)
[2017-08-06 09:56] LABS: Hypochromasia Present (Not Present)
[2017-08-06 09:57] LABS: Triiodothyronine (T3) Free 2.53 pg/mL (2.50-3.90)
[2017-08-06 10:49] LABS: ABG Base Excess 11 mEq/L (-2 to 3); ABG HCO3 40 mEq/L (21-27); ABG Oxygen Saturation 71 % (95-98); ABG PCO2 88 mmHg (35-45); ABG PH 7.27 pH Units (7.32-7.45); ABG PO2 45 mmHg (85-104); ABG TCO2 43 mEq/L (20-26)
[2017-08-06 10:55] LABS: ABG Base Excess 11 mEq/L (-2 to 3); ABG HCO3 41 mEq/L (21-27); ABG Oxygen Saturation 96 % (95-98); ABG PCO2 91 mmHg (35-45); ABG PH 7.26 pH Units (7.32-7.45); ABG PO2 96 mmHg (85-104); ABG TCO2 44 mEq/L (20-26)
[2017-08-06 11:49] LABS: Hematocrit 31.5 % (35.3-44.9); Hemoglobin 9.6 g/dL (11.5-15.4); Mean Corpuscular HGB Conc 30.5 g/dL (31.6-35.5); Mean Corpuscular Hemoglobin 28.9 pg (28.0-33.3); Mean Corpuscular Volume 94.9 fL (83.0-100.0); Mean Platelet Volume 10.8 fL (9.4-12.4); Nucleated Red Blood Cells 0.5 /100 WBC (0); Platelet Count 140 K/mcL (140-400); Red Blood Count 3.32 M/mcL (3.82-4.97); Red Cell Distribution Width 17.6 % (11.5-14.5)
[2017-08-06] MEDS: Ipratropium/Albuterol Neb 3 ML AER SCH ×4 (11:50→23:34)
[2017-08-06 12:11] LABS: Calcium 8.5 mg/dL (8.6-10.3); Potassium 4.2 mEq/L (3.5-5.1)
[2017-08-06] MEDS ORDERED: Furosemide 20 MG/2 ML VIAL IVP ONE ×2 (13:30→16:43)
[2017-08-06 13:53] LABS: Lymphocytes # 0.1 K/mcL (0.6-4.6); Neutrophils # 6.4 K/mcL (1.6-8.9)
[2017-08-06 13:54] LABS: Anisocytosis 1+ (Not Present); Basophilic Stippling 1+ (Not Present); Platelet Estimate Normal (Normal); Polychromasia 1+ (Not Present); Toxic Granulation Present (Not Present)
[2017-08-06] MEDS ORDERED: (Incruse Ellipta] 1 PUFF) IH SCH (18:00)
--- NOTE | 2017-08-06 18:01 | Gastroenterology Consult Note ---
<Deborah Benson - Last Filed: 08/06/17 17:59> Date of Encounter: 08/06/17 Time of Encounter: 12:10 - Assessment and plan (1) Anemia Current Visit: No Status: Acute Assessment and plan: Pt has had chronic GI bleeds due to AVMs and has had multiple scopes and capsule endoscopy. Transfuse as needed. Will do EGD when pt is stable enough. Her prognosis is very poor, consider palliative care consultation. Qualifiers: Anemia type: other cause Other causes of anemia: acute posthemorrhagic Qualified Code(s): D62 - Acute posthemorrhagic anemia - Time Spent With Patient Total time spent is greater than 50% in coordination of care (as documented) at patient's floor/unit and/or counseling patient: GI History of Present Illness - Data of Consult Patient: known to practice within the last 3 years Consult date: 08/06/17 Requesting Physician: Merissa Ortiz MD - Consult Narrative Reason for consult: anemia History of present illness: Ms. Higginbotham is a 76 year old female with PMH of recurrent GI bleed due to AVM, CHF , COPD, DM, aortic valve replacement, Afib, ICD and pacemaker, chronic RUMA, DVT in the left cephalic vein, and stage II breast cancer s/p chemo and radiation. She was seen in the office yesterday by dr Zelaya. Her BP was 74/48, Hgb was 7.0. And she was very fatigued and was sent to the ER. She had trnasfusions at the cancer center on . She was admitted to ICU and transfused and EGD was planned for this morning. She developed respiratory distress and was placed on BIPAP therefore EGD was deferred at this time. Procedures: EGD 07/10/17 Dr. Rojo: severe reflux esophagitis and non-bleeding angioectasia in duodenum and jejunum. Pathology report showed acute ulcerative esophagitis negative for dysplasia. Colonoscopy 07/10/17 Dr. Rojo: Two 5mm non-bleeding polyps in desending colon. Pathology report showed tubular adenoma negative for high grade dysplasia. EGD 06/03/2017 Dr. Zelaya: LA Grade A esophagitis, chronic gastritis, single nonbleeding AVM. Colonoscopy 06/04/2016 Dr. Rojo: Single nonbleeding AVM treated with APC, internal hemorrhoids. Recommended capsule endoscopy-not completed. EGD 06/04/2016 Dr. Rojo: Small hiatal hernia, single red spot with no bleeding in duodenum, questionable AVM, treated with APC. Colonoscopy 08/13/2015 Dr. Rojo: Single nonbleeding AVM treated with APC, diverticulosis, internal hemorrhoids. Small bowel enteroscopy 08/13/2015 Dr. Rojo: Three nonbleeding AVM in duodenum and one in stomach, treated with APC. EGD 07/15/2015 Dr. Sweet: Small hiatus hernia, two nonbleeding AVM treated with APC. NSAIDs: None Anticoagulation: None Past Med Surg Social Fam HX - Past Medical History Medical history: asthma, atrial fibrillation, cancer, cardiomyopathy, CHF, COPD , GERD, GI bleed, renal disease, thyroid disease, valvular heart disease Psychiatric history: anxiety, depression - Past Surgical History Surgical History: appendectomy, breast surgery, cancer surgery, heart valve replacement, hysterectomy, pacemaker/AICD - Social History Smoking Status: Former smoker Smokeless Tobacco Status: No Alcohol use: none Drug use: none - Family History Mother Family Member Ethnicity: Non- Living Status: Hx Family Cardiac Disorders: No Hx Family Respiratory Disorders: No Hx Family Cancer: Yes Hx Family GI Disorders: No Hx Family Endocrine Disorder: No Hx Family Neuromuscular Disorders: No Hx Family Neurologic Disorders: No Hx Family HEENT Disorders: No Hx Family Autoimmune Disorders: No Father Living Status: Hx Family Cardiac Disorders: Yes Hx Family Respiratory Disorders: No Hx Family Cancer: Yes Hx Family GI Disorders: No Hx Family Endocrine Disorder: No Hx Family Neuromuscular Disorders: No Hx Family Neurologic Disorders: No Hx Family HEENT Disorders: No Hx Family Autoimmune Disorders: No ROS unobtainable: due to mental status - Constitutional Vitals: Temp Pulse Resp BP Pulse Ox 96.1 F L 52 12 101/51 93 08/06/17 15:00 08/06/17 17:00 08/06/17 17:00 08/06/17 17:00 08/06/17 17:00 Exam: CONSTITUTIONAL: nonresponsive.~HEAD:~normocephalic.~EYES:~no jaundice.~NECK:~no obvious swelling.~HEART:~bradycardi HR 49, pacemaker noted.~LUNGS:~bilateral poor air entry.~ABDOMEN:~non distended, soft, non tender, no masses palpable, no organomegaly.~RECTAL EXAM:~Deferred.~EXTREMITIES:~no clubbing, cyanosis or edema.~SKIN:~pallor noted, no stigmata of chronic liver disease.~NEUROLOGIC:~no obvious focal defect.~~~~ Results - Labs CBC & Chem 7: 08/06/17 11:20 08/06/17 11:20 Labs: Last Result Calcium 8.5 mg/dL (8.6-10.3) L 08/06/17 11:20 Entire Visit Hgb 9.6 g/dL (11.5-15.4) L 08/06/17 11:20 Hct 31.5 % (35.3-44.9) L 08/06/17 11:20 PT 10.8 Seconds (9.4-12.1) 08/05/17 16:50 - ABG ABG results: ABG ABG pH 7.26 pH Units (7.32-7.45) L 08/06/17 10:51 ABG pCO2 91 mmHg (35-45) H* 08/06/17 10:51 ABG pO2 96 mmHg (85-104) D 08/06/17 10:51 ABG O2 Saturation 96 % (95-98) 08/06/17 10:51 PT/INR, D-dimer PT 10.8 Seconds (9.4-12.1) 08/05/17 16:50 - Impressions Impressions Chest X-Ray 08/05/17 21:09 IMPRESSION: No significant change in appearance of moderate CHF and multifocal airspace opacity throughout both lungs, likely a combination of asymmetric edema and atelectasis. However, superimposed pneumonia is also a diagnostic consideration. D/ / 08/05/2017 22:10:22 [facility] Alber[facility] Interpreting Provider: Luis Alberto Hyde MD Chest X-Ray 08/05/17 22:03 IMPRESSION: No pneumothorax status post right internal jugular central venous catheter placement. Tip is in the expected location. D/ / Thom Pierre MD / Thom Pierre MD Interpreting Provider: Thom Pierre MD Consult Discharge Plan - Plan Referrals: Francisco Melgar Jr [Primary Care Provider] - <GarciaJacqueCharly - Last Filed: 08/13/17 05:53> Date of Encounter: 08/06/17 - Time Spent With Patient Total time spent is greater than 50% in coordination of care (as documented) at patient's floor/unit and/or counseling patient: GI History of Present Illness - Data of Consult Requesting Physician: Merissa Ortiz MD - Consult Narrative History of present illness: Ms. Higginbotham is a 77 year old female - Constitutional Vitals: Temp Pulse Resp BP Pulse Ox 97.6 F 59 11 90/46 93 08/13/17 03:00 08/13/17 03:00 08/13/17 04:50 08/13/17 04:50 08/13/17 04:50 Results - Labs CBC & Chem 7: 08/11/17 04:44 08/11/17 04:44 Labs: Last Result Calcium 9.2 mg/dL (8.6-10.3) 08/11/17 04:44 Vitamin B12 1072 pg/mL (250-1100) 08/07/17 03:05 Folate > 22.3 ng/mL (3.0-16.0) H 08/07/17 03:05 Entire Visit Hgb 8.1 g/dL (11.5-15.4) L 08/11/17 04:44 Hct 27.1 % (35.3-44.9) L 08/11/17 04:44 PT 10.8 Seconds (9.4-12.1) 08/05/17 16:50 Folate > 22.3 ng/mL (3.0-16.0) H 08/07/17 03:05 - ABG ABG results: ABG ABG pH 7.34 pH Units (7.32-7.45) 08/07/17 04:14 ABG pCO2 77 mmHg (35-45) H* 08/07/17 04:14 ABG pO2 83 mmHg (85-104) L 08/07/17 04:14 ABG O2 Saturation 95 % (95-98) 08/07/17 04:14 PT/INR, D-dimer PT 10.8 Seconds (9.4-12.1) 08/05/17 16:50 - Attending Attestation Patient had presented to my office with severe anemia with HGB 7 gm% shortness of breath and was sent to ED to get admitted. Etiology of anemia multifactorial. Multiple comorbidities which are very severe. Endoscopy only if stable. Has habit of decompensating in the the hospital. I have personally performed a face to face evaluation on this patient. I have reviewed and agree with the care plan. History and Exam by me shows:
[2017-08-07] MEDS: Ipratropium/Albuterol Neb 3 ML AER SCH ×6 (03:14→23:37)
[2017-08-07 03:35] LABS: Calcium 8.5 mg/dL (8.6-10.3); Potassium 3.9 mEq/L (3.5-5.1)
[2017-08-07 03:39] LABS: Basophils % 0.1 %; Hemoglobin 9.7 g/dL (11.5-15.4); Immature Granulocytes % 1.2 % (0-4); Lymphocytes # 0.3 K/mcL (0.6-4.6); Mean Corpuscular HGB Conc 31.3 g/dL (31.6-35.5); Mean Corpuscular Hemoglobin 29.8 pg (28.0-33.3); Mean Corpuscular Volume 95.4 fL (83.0-100.0); Mean Platelet Volume 10.7 fL (9.4-12.4); Monocytes # 0.3 K/mcL (0.0-1.3); Monocytes % 2.3 %; Nucleated Red Blood Cells 0.6 /100 WBC (0); Platelet Count 162 K/mcL (140-400); Red Blood Count 3.25 M/mcL (3.82-4.97); Red Cell Distribution Width 17.6 % (11.5-14.5); Segmented Neutrophils % 93.4 %
[2017-08-07 04:02] LABS: Vitamin B12 1072 pg/mL (250-1100)
[2017-08-07 04:18] LABS: ABG Base Excess 13 mEq/L (-2 to 3); ABG HCO3 41 mEq/L (21-27); ABG Oxygen Saturation 95 % (95-98); ABG PCO2 77 mmHg (35-45); ABG PH 7.34 pH Units (7.32-7.45); ABG PO2 83 mmHg (85-104); ABG TCO2 44 mEq/L (20-26)
[2017-08-07 04:31] LABS: Folate > 22.3 ng/mL (3.0-16.0)
[2017-08-07] MEDS: Pantoprazole 40 MG VIAL IVP SCH ×2 (04:57→17:33)
[2017-08-07] MEDS: Levothyroxine Sodium 100 MCG VIAL IVP SCH (04:58)
--- NOTE | 2017-08-07 06:07 | Pulmonology Progress Note ---
<AditiCarlos W - Last Filed: 08/07/17 10:27> Date of Encounter: 08/07/17 Objective PUL Vital signs: Last Vital Signs Temp 97.4 F L 08/07/17 07:00 Pulse 53 08/07/17 07:00 Resp 12 08/07/17 07:34 BP 106/61 08/07/17 07:34 Pulse Ox 96 08/07/17 07:34 Results - Laboratory Findings CBC and BMP: 08/07/17 03:05 08/07/17 03:05 ABG ABG pH 7.34 pH Units (7.32-7.45) 08/07/17 04:14 ABG pCO2 77 mmHg (35-45) H* 08/07/17 04:14 ABG pO2 83 mmHg (85-104) L 08/07/17 04:14 ABG O2 Saturation 95 % (95-98) 08/07/17 04:14 PT/INR, D-dimer PT 10.8 Seconds (9.4-12.1) 08/05/17 16:50 Abnormal lab findings: Abnormal lab results RBC 3.25 M/mcL (3.82-4.97) L 08/07/17 03:05 Hgb 9.7 g/dL (11.5-15.4) L 08/07/17 03:05 Hct 31.0 % (35.3-44.9) L 08/07/17 03:05 MCHC 31.3 g/dL (31.6-35.5) L 08/07/17 03:05 RDW 17.6 % (11.5-14.5) H 08/07/17 03:05 Metamyelocytes % 1.0 % (0) H 08/06/17 04:00 Myelocytes % 3.0 % (0) H 08/06/17 04:00 Neutrophils # 10.0 K/mcL (1.6-8.9) H 08/07/17 03:05 Lymphocytes # 0.3 K/mcL (0.6-4.6) L 08/07/17 03:05 Nucleated RBCs/100 WBC 0.6 /100 WBC (0) H 08/07/17 03:05 Toxic Granulation Present (Not Present) A 08/06/17 11:20 Polychromasia 1+ (Not Present) A 08/06/17 11:20 Hypochromasia Present (Not Present) A 08/06/17 04:00 Basophilic Stippling 1+ (Not Present) A 08/06/17 11:20 Anisocytosis 1+ (Not Present) A 08/06/17 11:20 ABG pCO2 77 mmHg (35-45) H* 08/07/17 04:14 ABG pO2 83 mmHg (85-104) L 08/07/17 04:14 ABG HCO3 41 mEq/L (21-27) H 08/07/17 04:14 ABG Total CO2 44 mEq/L (20-26) H 08/07/17 04:14 ABG Base Excess 13 mEq/L (-2 to 3) H 08/07/17 04:14 Chloride 97 mEq/L (98-107) L 08/07/17 03:05 Carbon Dioxide 38 mEq/L (23-29) H 08/07/17 03:05 BUN 31 mg/dL (8-23) H 08/07/17 03:05 Creatinine 1.33 mg/dL (0.60-1.20) H 08/07/17 03:05 Est GFR ( Amer) 47 (> 60) L 08/07/17 03:05 Est GFR (Non-Af Amer) 39 (> 60) L 08/07/17 03:05 Glucose 175 mg/dL (70-105) H 08/07/17 03:05 POC Glucose 187 mg/dL (70-99) H 08/06/17 23:26 Calculated Osmolality 301 (280-300) H 08/07/17 03:05 Calcium 8.5 mg/dL (8.6-10.3) L 08/07/17 03:05 Folate > 22.3 ng/mL (3.0-16.0) H 08/07/17 03:05 TSH 29.467 mcIU/mL (0.340-5.600) H 08/05/17 16:50 Urine Clarity Cloudy (Clear) A 08/05/17 21:26 Urine Protein 100 mg/dL (Neg-Trace) H 08/05/17 21:26 Urine Bilirubin Small (Negative) H 08/05/17 21:26 Ur Leukocyte Esterase Small (Negative) H 08/05/17 21:26 Urine Microscopic WBC 5-15 per hpf (0-3) H 08/05/17 21:26 Ur Squamous Epith Cells Many per lpf (None-Few) H 08/05/17 21:26 Ur Renal Epithelial Cell Moderate per hpf (None-Few) H 08/05/17 21:26 Amorphous Sediment Moderate (Few) H 08/05/17 21:26 Ur Culture Indicated? NO. (NO) A 08/05/17 21:26 - Clinical Findings Intake & Output: Intake & Output 08/06/17 08/07/17 08/07/17 23:59 07:59 15:59 Intake Total 463 / 463 Output Total 1000 / 1000 200 / 200 Balance -537 / -537 -200 / -200 Weight 90.6 kg Consult Discharge Plan - Plan Referrals: Francisco Melgar Jr [Primary Care Provider] - - Attending Attestation I examined this patient and my medical decision-making was reviewed with the Resident Physician. I agree with the documented findings, disposition and treatment plan as described except to the extent set forth below. We independently had [id number] contact with the patient Patient seen and examined at bedside Labs, radiology, chart personally reviewed. Management was reviewed during multidisciplinary critical care rounds. TECHNICAL SUPPORT ASSISTANT: More awake today cont delirium precautions Pulm: Acute on chronic hypoxic hypercapnic respiratory failure requiring NIV can wean off for longer periods of time today. Will need to wear at night and during sleep Cards: Acutely decompensated Systolic Heart failure on Levophed cont diuresis. FEN-GI: history of GI bleed s/t AVMs acute anemia but no overt evidence of bleeding. GI following Renal: UOP monitored cont serial monitoring of electrolytes and sCr ID: NO clear evidence of infections cultures have been obtained. Heme/Onc: SCDs for DVT prophylaxis Endo: Glucose Monitored; Hypothyroidism cont IV thyroxine Integ/MSK: Skin Care per routine ICU Nursing Protocol to prevent ulcers. Lines: All lines examined without evidence of infection : Dispo: ICU today for pressor requirement CODE: Full. 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, improved Patient has been admitted for severe hypothyroidism in the past requiring increased use of thyroxine On arrival the patient did have significant hypothermia, hypotension, anemia Her TSH on arrival was 29.47, free T3 2 0.53, free T4 1 0.64 Symptoms consistent with myxedema such as periocular and pretibial or edema, significant weakness, cardiomyopathy The patient received 300mcg IV levothyroxine in the ED Plan: -We will continue the patient on 150 g levothyroxine IV while in the hospital -Patient/ECF will need medication regimen clarification at the time of discharge (2) Hypotension Current Visit: Yes Status: Acute Hypotension, likely secondary to cardiogenic shock Patient has myxedema due to severe hypothyroidism I suspect that this is the cause of the patient's acute exacerbation of CHF and hypotension The patient has been on Levophed which has increased her map We gave the patient stress dose of hydrocortisone today Infectious etiology is unlikely, however we will monitor for signs of infection and consider antibiotics if necessary Plan: -Continue to down-titrate levophed as tolerated, currently 4mcg Qualifiers: Hypotension type: other hypotension type Qualified Code(s): I95.89 - Other hypotension (3) CHF (congestive heart failure), NYHA class I Current Visit: Yes Status: Acute Acute exacerbation of congestive heart failure secondary to severe hypothyroidism Chest x-ray does demonstrate moderate CHF and pulmonary vascular congestion Echocardiogram March 2017 does demonstrate an ejection fraction of 45%, diastolic dysfunction with moderate to severe mitral regurgitation The patient was hypotensive on admission and hypothermic We will continue pressors, and diuresis gently as the patient tolerates Plan: -Continue gentle diuesis as tolerated by BP Qualifiers: Congestive heart failure type: systolic Congestive heart failure chronicity : acute on chronic Qualified Code(s): I50.23 - Acute on chronic systolic ( congestive) heart failure (4) Acute blood loss anemia Current Visit: Yes Status: Acute Acute anemia, hemoglobin 6.7 on arrival Improved status post 2 units packed red blood cells Patient seen woman is likely secondary to chronic blood loss and macrocytic anemia Macrocytosis may be secondary to dietary deficiency versus severe hypothyroidism Peripheral smear is consistent with acute blood loss anemia, vitamin B12 1072, folate greater than 22, MMA pending Gastroenterology is on board and considering EGD for acute blood I feel that this is less likely due to the fact the patient's hemoglobin has been stable for 24 hour (5) Atrial fibrillation with slow ventricular response Current Visit: Yes Status: Acute Currently stable on levofed and home meds Patient is not a candidate for anticoagulation due to GI bleeding Continuous cardiac monitoring (6) Weakness Current Visit: Yes Status: Acute Likely secondary to myxedema plus symptomatically anemia We will work on treating the underlying causes to reduce weakness PT and OT consult when the patient can tolerate (7) COPD (chronic obstructive pulmonary disease) Current Visit: No Status: Chronic COPD without acute exacerbation We will give the patient scheduled duo nebs and as needed albuterol We will give the patient BiPAP overnight Qualifiers: COPD type: chronic bronchitis Chronic bronchitis type: mucopurulent Qualified Code(s): J41.1 - Mucopurulent chronic bronchitis (8) H/O aortic valve replacement Current Visit: No Status: Chronic (9) DVT prophylaxis Current Visit: Yes Status: Chronic SCDs due to GI bleeding Subjective Principal diagnosis: CHF Interval history: The patient is resting comfortably in bed at time of examination. She does say that she is feeling significantly better than she did yesterday. She had no acute events overnight, did wear BiPAP throughout most the night. Objective PUL Vital signs: Last Vital Signs Temp 96.7 F L 08/07/17 03:00 Pulse 51 08/07/17 05:30 Resp 17 08/07/17 05:30 BP 96/71 08/07/17 05:30 Pulse Ox 96 08/07/17 05:30 Gen: Vitals noted. No acute distress. AAOx3 HEENT: PERRL/EOMI, oropharynx clear, Normocephalic, atraumatic. Periocular swelling improved and minimal redness present Neck: Supple. No adenopathy. Right IJ CVC in place with no obvious tissue abnormalities and surrounding tissue Cardiac: RRR, 3/6 systolic murmur heard best over aortic valve, +S1/S2 Pulmonary: CTA bilaterally, no wheezes, rales or rhonchi, equal chest expansion Abdomen: soft, nontender, BS noted, no guarding Back: Nontender throughout. MSK: ROM intact, no joint swelling noted Extremities: 1+ pretibial edema, no apparent cyanosis Neuro: moves all extremities, no focal deficits Psych: Appropriate mood and behavior Results - Laboratory Findings CBC and BMP: 08/07/17 03:05 08/07/17 03:05 ABG ABG pH 7.34 pH Units (7.32-7.45) 08/07/17 04:14 ABG pCO2 77 mmHg (35-45) H* 08/07/17 04:14 ABG pO2 83 mmHg (85-104) L 08/07/17 04:14 ABG O2 Saturation 95 % (95-98) 08/07/17 04:14 PT/INR, D-dimer PT 10.8 Seconds (9.4-12.1) 08/05/17 16:50 Abnormal lab findings: Abnormal lab results RBC 3.25 M/mcL (3.82-4.97) L 08/07/17 03:05 Hgb 9.7 g/dL (11.5-15.4) L 08/07/17 03:05 Hct 31.0 % (35.3-44.9) L 08/07/17 03:05 MCHC 31.3 g/dL (31.6-35.5) L 08/07/17 03:05 RDW 17.6 % (11.5-14.5) H 08/07/17 03:05 Metamyelocytes % 1.0 % (0) H 08/06/17 04:00 Myelocytes % 3.0 % (0) H 08/06/17 04:00 Neutrophils # 10.0 K/mcL (1.6-8.9) H 08/07/17 03:05 Lymphocytes # 0.3 K/mcL (0.6-4.6) L 08/07/17 03:05 Nucleated RBCs/100 WBC 0.6 /100 WBC (0) H 08/07/17 03:05 Toxic Granulation Present (Not Present) A 08/06/17 11:20 Polychromasia 1+ (Not Present) A 08/06/17 11:20 Hypochromasia Present (Not Present) A 08/06/17 04:00 Basophilic Stippling 1+ (Not Present) A 08/06/17 11:20 Anisocytosis 1+ (Not Present) A 08/06/17 11:20 ABG pCO2 77 mmHg (35-45) H* 08/07/17 04:14 ABG pO2 83 mmHg (85-104) L 08/07/17 04:14 ABG HCO3 41 mEq/L (21-27) H 08/07/17 04:14 ABG Total CO2 44 mEq/L (20-26) H 08/07/17 04:14 ABG Base Excess 13 mEq/L (-2 to 3) H 08/07/17 04:14 Chloride 97 mEq/L (98-107) L 08/07/17 03:05 Carbon Dioxide 38 mEq/L (23-29) H 08/07/17 03:05 BUN 31 mg/dL (8-23) H 08/07/17 03:05 Creatinine 1.33 mg/dL (0.60-1.20) H 08/07/17 03:05 Est GFR ( Amer) 47 (> 60) L 08/07/17 03:05 Est GFR (Non-Af Amer) 39 (> 60) L 08/07/17 03:05 Glucose 175 mg/dL (70-105) H 08/07/17 03:05 POC Glucose 187 mg/dL (70-99) H 08/06/17 23:26 Calculated Osmolality 301 (280-300) H 08/07/17 03:05 Calcium 8.5 mg/dL (8.6-10.3) L 08/07/17 03:05 Folate > 22.3 ng/mL (3.0-16.0) H 08/07/17 03:05 TSH 29.467 mcIU/mL (0.340-5.600) H 08/05/17 16:50 Urine Clarity Cloudy (Clear) A 08/05/17 21:26 Urine Protein 100 mg/dL (Neg-Trace) H 08/05/17 21:26 Urine Bilirubin Small (Negative) H 08/05/17 21:26 Ur Leukocyte Esterase Small (Negative) H 08/05/17 21:26 Urine Microscopic WBC 5-15 per hpf (0-3) H 08/05/17 21:26 Ur Squamous Epith Cells Many per lpf (None-Few) H 08/05/17 21:26 Ur Renal Epithelial Cell Moderate per hpf (None-Few) H 08/05/17 21:26 Amorphous Sediment Moderate (Few) H 08/05/17 21:26 Ur Culture Indicated? NO. (NO) A 08/05/17 21:26 - Clinical Findings Intake & Output: Intake & Output 08/06/17 08/06/17 08/07/17 15:59 23:59 07:59 Intake Total 161 / 161 463 / 463 Output Total 325 / 325 1000 / 1000 100 / 100 Balance -164 / -164 -537 / -537 -100 / -100 Weight 90.6 kg
[2017-08-07] MEDS: Sucralfate 1 GM TABLET PO SCH ×4 (06:11→20:03)
[2017-08-07] MEDS ORDERED: Furosemide 40 MG/4 ML VIAL IVP ONE ×2 (06:55→16:21)
[2017-08-07] MEDS: Folic Acid 1 MG TABLET PO SCH (08:25)
[2017-08-07] MEDS: *HR* Amiodarone 200 MG TABLET PO SCH (08:25)
[2017-08-07] MEDS: FLUoxetine 20 MG CAPSULE PO SCH (20:03)
[2017-08-07] MEDS: ALPRAZolam 0.5 MG TABLET PO SCH (20:04)
[2017-08-07] MEDS: rOPINIRole 1 MG TABLET PO SCH (20:04)
[2017-08-08] MEDS: Ipratropium/Albuterol Neb 3 ML AER SCH ×5 (03:42→19:39)
[2017-08-08 04:07] LABS: Eosinophils % 0.1 %; Mean Corpuscular Hemoglobin 29.3 pg (28.0-33.3); Monocytes % 6.8 %; Segmented Neutrophils % 85.6 %
[2017-08-08 04:09] LABS: Hematocrit 26.1 % (35.3-44.9); Immature Granulocytes % 0.4 % (0-4); Immature Platelets 4.4 % (1.1-6.1); Lymphocytes # 0.5 K/mcL (0.6-4.6); Lymphocytes % 7.1 %; Mean Corpuscular HGB Conc 30.7 g/dL (31.6-35.5); Mean Corpuscular Volume 95.6 fL (83.0-100.0); Mean Platelet Volume 10.5 fL (9.4-12.4); Monocytes # 0.5 K/mcL (0.0-1.3); Neutrophils # 6.3 K/mcL (1.6-8.9); Nucleated Red Blood Cells 0.3 /100 WBC (0); Red Blood Count 2.73 M/mcL (3.82-4.97); Red Cell Distribution Width 18.2 % (11.5-14.5)
[2017-08-08 04:11] LABS: Platelet Count 90 K/mcL (140-400)
[2017-08-08 04:35] LABS: Calcium 8.4 mg/dL (8.6-10.3); Potassium 3.4 mEq/L (3.5-5.1)
[2017-08-08] MEDS: Levothyroxine Sodium 100 MCG VIAL IVP SCH (06:17)
[2017-08-08] MEDS: Pantoprazole 40 MG VIAL IVP SCH ×2 (06:17→17:30)
--- NOTE | 2017-08-08 07:03 | Pulmonology Progress Note ---
<AditiCarlos W - Last Filed: 08/08/17 12:12> Date of Encounter: 08/08/17 Objective PUL Vital signs: Last Vital Signs Temp 97.1 F L 08/08/17 04:00 Pulse 50 08/08/17 08:00 Resp 14 08/08/17 08:00 BP 89/49 08/08/17 08:00 Pulse Ox 97 08/08/17 08:00 Results - Laboratory Findings CBC and BMP: 08/08/17 08:50 08/08/17 03:30 ABG ABG pH 7.34 pH Units (7.32-7.45) 08/07/17 04:14 ABG pCO2 77 mmHg (35-45) H* 08/07/17 04:14 ABG pO2 83 mmHg (85-104) L 08/07/17 04:14 ABG O2 Saturation 95 % (95-98) 08/07/17 04:14 PT/INR, D-dimer PT 10.8 Seconds (9.4-12.1) 08/05/17 16:50 Abnormal lab findings: Abnormal lab results RBC 2.73 M/mcL (3.82-4.97) L 08/08/17 03:30 Hgb 8.0 g/dL (11.5-15.4) L D 08/08/17 03:30 Hct 26.1 % (35.3-44.9) L 08/08/17 03:30 MCHC 30.7 g/dL (31.6-35.5) L 08/08/17 03:30 RDW 18.2 % (11.5-14.5) H 08/08/17 03:30 Plt Count 90 K/mcL (140-400) L 08/08/17 03:30 Metamyelocytes % 1.0 % (0) H 08/06/17 04:00 Myelocytes % 3.0 % (0) H 08/06/17 04:00 Lymphocytes # 0.5 K/mcL (0.6-4.6) L 08/08/17 03:30 Nucleated RBCs/100 WBC 0.3 /100 WBC (0) H 08/08/17 03:30 Toxic Granulation Present (Not Present) A 08/06/17 11:20 Polychromasia 1+ (Not Present) A 08/06/17 11:20 Hypochromasia Present (Not Present) A 08/06/17 04:00 Basophilic Stippling 1+ (Not Present) A 08/06/17 11:20 Anisocytosis 1+ (Not Present) A 08/06/17 11:20 ABG pCO2 77 mmHg (35-45) H* 08/07/17 04:14 ABG pO2 83 mmHg (85-104) L 08/07/17 04:14 ABG HCO3 41 mEq/L (21-27) H 08/07/17 04:14 ABG Total CO2 44 mEq/L (20-26) H 08/07/17 04:14 ABG Base Excess 13 mEq/L (-2 to 3) H 08/07/17 04:14 Potassium 3.4 mEq/L (3.5-5.1) L 08/08/17 03:30 Chloride 97 mEq/L (98-107) L 08/08/17 03:30 Carbon Dioxide 40 mEq/L (23-29) H* 08/08/17 03:30 BUN 31 mg/dL (8-23) H 08/08/17 03:30 Creatinine 1.44 mg/dL (0.60-1.20) H 08/08/17 03:30 Est GFR ( Amer) 43 (> 60) L 08/08/17 03:30 Est GFR (Non-Af Amer) 35 (> 60) L 08/08/17 03:30 POC Glucose 135 mg/dL (70-99) H 08/07/17 23:04 Calcium 8.4 mg/dL (8.6-10.3) L 08/08/17 03:30 Folate > 22.3 ng/mL (3.0-16.0) H 08/07/17 03:05 TSH 29.467 mcIU/mL (0.340-5.600) H 08/05/17 16:50 Urine Clarity Cloudy (Clear) A 08/05/17 21:26 Urine Protein 100 mg/dL (Neg-Trace) H 08/05/17 21:26 Urine Bilirubin Small (Negative) H 08/05/17 21:26 Ur Leukocyte Esterase Small (Negative) H 08/05/17 21:26 Urine Microscopic WBC 5-15 per hpf (0-3) H 08/05/17 21:26 Ur Squamous Epith Cells Many per lpf (None-Few) H 08/05/17 21:26 Ur Renal Epithelial Cell Moderate per hpf (None-Few) H 08/05/17 21:26 Amorphous Sediment Moderate (Few) H 08/05/17 21:26 Ur Culture Indicated? NO. (NO) A 08/05/17 21:26 - Microbiology Findings Microbiology Findings: Microbiology, Last 48 Hours 08/06/17 03:40 Blood Culture - Preliminary Peripheral Venipuncture No growth. - Clinical Findings Intake & Output: Intake & Output 08/07/17 08/08/17 08/08/17 23:59 07:59 15:59 Intake Total 240 / 240 225 / 225 Output Total 575 / 575 200 / 200 Balance -335 / -335 25 / 25 Weight 89.1 kg Consult Discharge Plan - Plan Referrals: Francisco Melgar Jr [Primary Care Provider] - - Attending Attestation I examined this patient and my medical decision-making was reviewed with the Resident Physician. I agree with the documented findings, disposition and treatment plan as described except to the extent set forth below. We independently had [id number] contact with the patient Patient seen and examined at bedside Labs, radiology, chart personally reviewed. Management was reviewed during multidisciplinary critical care rounds. FOLDER HAND: Awake and alert today no deficit continue to monitor for delirium Pulm: Acute on chronic hypoxic Hypercapnic respiratory failure stable oxygenation today continue noninvasive ventilation at night and with napping Cards: Acute on chronic systolic heart failure with evidence of cardiogenic shock requiring vasopressors vasopressors and now been weaned continue diuresis. She has persistent bradycardia and remains ventricularly paced continued treatment of hypothyroidism should help both conditions FEN-GI: Nothing by mouth for now pending GI evaluation Renal: Urine output monitored serum creatinine stable continue to replace electrolytes per protocol ID: No active infectious source continue to monitor Heme/Onc: Patient had a drop in all cell lines overnight including hemoglobin we will repeat at this time and monitor for further drops I do not see any evidence of overt gastrointestinal hemorrhage but she is at high risk for this transfusion goal greater than 7 Endo: Glucose Monitored Integ/MSK: Skin Care per routine ICU Nursing Protocol to prevent ulcers. 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, improved Patient has been admitted for severe hypothyroidism in the past requiring increased use of thyroxine On arrival the patient did have significant hypothermia, hypotension, anemia Her TSH on arrival was 29.47, free T3 2 0.53, free T4 1 0.64 Symptoms consistent with myxedema such as periocular and pretibial or edema, significant weakness, cardiomyopathy The patient received 300mcg IV levothyroxine in the ED Plan: -We will continue the patient on 150 g levothyroxine IV while in the hospital -Patient/ECF will need medication regimen clarification at the time of discharge -For LE edema, we will wrap legs (2) Hypotension Current Visit: Yes Status: Acute Hypotension, likely secondary to cardiogenic shock Patient has myxedema due to severe hypothyroidism I suspect that this is the cause of the patient's acute exacerbation of CHF and hypotension The patient has been on Levophed which has increased her map Infectious etiology is unlikely, however we will monitor for signs of infection and consider antibiotics if necessary Plan: -Restarted levophed today for MAP <60 -We will decrease attempts to diurese Qualifiers: Hypotension type: other hypotension type Qualified Code(s): I95.89 - Other hypotension (3) CHF (congestive heart failure), NYHA class I Current Visit: Yes Status: Acute Acute exacerbation of congestive heart failure secondary to severe hypothyroidism Chest x-ray does demonstrate moderate CHF and pulmonary vascular congestion Echocardiogram March 2017 does demonstrate an ejection fraction of 45%, diastolic dysfunction with moderate to severe mitral regurgitation The patient was hypotensive on admission and hypothermic We will continue pressors, and diuresis gently as the patient tolerates Plan: -Continue gentle diuesis as tolerated by BP, less aggressive -Wrap legs for edema Qualifiers: Congestive heart failure type: systolic Congestive heart failure chronicity : acute on chronic Qualified Code(s): I50.23 - Acute on chronic systolic ( congestive) heart failure (4) Acute blood loss anemia Current Visit: Yes Status: Acute Acute anemia, hemoglobin 6.7 on arrival Improved status post 2 units packed red blood cells Patients anemia is likely secondary to chronic blood loss and macrocytic anemia Macrocytosis may be secondary to dietary deficiency versus severe hypothyroidism Peripheral smear is consistent with acute blood loss anemia, vitamin B12 1072, folate greater than 22, MMA pending Gastroenterology is on board and considering EGD for acute blood The patient did show a nearly 2g drop in hemoglobin overnight however there was no overt clinical signs of bleeding The drop occurred across all cell lines, which indicates possibility of bone marrow dysfunction Plan: -Continue to monitor serial H/H -Consult GI for EGD if necessary (5) Atrial fibrillation with slow ventricular response Current Visit: Yes Status: Acute Currently stable on levofed and home meds Patient is not a candidate for anticoagulation due to GI bleeding Continuous cardiac monitoring (6) Weakness Current Visit: Yes Status: Acute Likely secondary to myxedema plus symptomatically anemia We will work on treating the underlying causes to reduce weakness PT and OT consult when the patient can tolerate (7) COPD (chronic obstructive pulmonary disease) Current Visit: No Status: Chronic COPD without acute exacerbation We will give the patient scheduled duo nebs and as needed albuterol We will give the patient BiPAP overnight Qualifiers: COPD type: chronic bronchitis Chronic bronchitis type: mucopurulent Qualified Code(s): J41.1 - Mucopurulent chronic bronchitis (8) H/O aortic valve replacement Current Visit: No Status: Chronic (9) DVT prophylaxis Current Visit: Yes Status: Chronic SCDs due to GI bleeding Subjective Principal diagnosis: CHF Interval history: The patient is resting comfortably in bed at time of examination. She does say that she is feeling significantly better than she did yesterday. She had no acute events overnight, did wear BiPAP throughout most the night. Objective PUL Vital signs: Last Vital Signs Temp 97.1 F L 08/08/17 04:00 Pulse 50 08/08/17 06:16 Resp 18 08/08/17 06:16 BP 95/50 08/08/17 06:16 Pulse Ox 97 08/08/17 06:16 Gen: Vitals noted. No acute distress. AAOx3 HEENT: PERRL/EOMI, oropharynx clear, Normocephalic, atraumatic. Periocular swelling improved and minimal redness present Neck: Supple. No adenopathy. Right IJ CVC in place with no obvious tissue abnormalities and surrounding tissue Cardiac: RRR, 3/6 systolic murmur heard best over aortic valve, +S1/S2 Pulmonary: Diffuse crackles are heard throughout the lung Abdomen: soft, nontender, BS noted, no guarding Back: Nontender throughout. MSK: ROM intact, no joint swelling noted Extremities: 1+ pretibial edema, no apparent cyanosis Neuro: moves all extremities, no focal deficits Psych: Appropriate mood and behavior Results - Laboratory Findings CBC and BMP: 08/08/17 08:50 08/08/17 03:30 ABG ABG pH 7.34 pH Units (7.32-7.45) 08/07/17 04:14 ABG pCO2 77 mmHg (35-45) H* 08/07/17 04:14 ABG pO2 83 mmHg (85-104) L 08/07/17 04:14 ABG O2 Saturation 95 % (95-98) 08/07/17 04:14 PT/INR, D-dimer PT 10.8 Seconds (9.4-12.1) 08/05/17 16:50 Abnormal lab findings: Abnormal lab results RBC 2.73 M/mcL (3.82-4.97) L 08/08/17 03:30 Hgb 8.0 g/dL (11.5-15.4) L D 08/08/17 03:30 Hct 26.1 % (35.3-44.9) L 08/08/17 03:30 MCHC 30.7 g/dL (31.6-35.5) L 08/08/17 03:30 RDW 18.2 % (11.5-14.5) H 08/08/17 03:30 Plt Count 90 K/mcL (140-400) L 08/08/17 03:30 Metamyelocytes % 1.0 % (0) H 08/06/17 04:00 Myelocytes % 3.0 % (0) H 08/06/17 04:00 Lymphocytes # 0.5 K/mcL (0.6-4.6) L 08/08/17 03:30 Nucleated RBCs/100 WBC 0.3 /100 WBC (0) H 08/08/17 03:30 Toxic Granulation Present (Not Present) A 08/06/17 11:20 Polychromasia 1+ (Not Present) A 08/06/17 11:20 Hypochromasia Present (Not Present) A 08/06/17 04:00 Basophilic Stippling 1+ (Not Present) A 08/06/17 11:20 Anisocytosis 1+ (Not Present) A 08/06/17 11:20 ABG pCO2 77 mmHg (35-45) H* 08/07/17 04:14 ABG pO2 83 mmHg (85-104) L 08/07/17 04:14 ABG HCO3 41 mEq/L (21-27) H 08/07/17 04:14 ABG Total CO2 44 mEq/L (20-26) H 08/07/17 04:14 ABG Base Excess 13 mEq/L (-2 to 3) H 08/07/17 04:14 Potassium 3.4 mEq/L (3.5-5.1) L 08/08/17 03:30 Chloride 97 mEq/L (98-107) L 08/08/17 03:30 Carbon Dioxide 40 mEq/L (23-29) H* 08/08/17 03:30 BUN 31 mg/dL (8-23) H 08/08/17 03:30 Creatinine 1.44 mg/dL (0.60-1.20) H 08/08/17 03:30 Est GFR ( Amer) 43 (> 60) L 08/08/17 03:30 Est GFR (Non-Af Amer) 35 (> 60) L 08/08/17 03:30 POC Glucose 135 mg/dL (70-99) H 08/07/17 23:04 Calcium 8.4 mg/dL (8.6-10.3) L 08/08/17 03:30 Folate > 22.3 ng/mL (3.0-16.0) H 08/07/17 03:05 TSH 29.467 mcIU/mL (0.340-5.600) H 08/05/17 16:50 Urine Clarity Cloudy (Clear) A 08/05/17 21:26 Urine Protein 100 mg/dL (Neg-Trace) H 08/05/17 21:26 Urine Bilirubin Small (Negative) H 08/05/17 21:26 Ur Leukocyte Esterase Small (Negative) H 08/05/17 21:26 Urine Microscopic WBC 5-15 per hpf (0-3) H 08/05/17 21:26 Ur Squamous Epith Cells Many per lpf (None-Few) H 08/05/17 21:26 Ur Renal Epithelial Cell Moderate per hpf (None-Few) H 08/05/17 21:26 Amorphous Sediment Moderate (Few) H 08/05/17 21:26 Ur Culture Indicated? NO. (NO) A 08/05/17 21:26 - Microbiology Findings Microbiology Findings: Microbiology, Last 48 Hours 08/06/17 03:40 Blood Culture - Preliminary Peripheral Venipuncture No growth. - Clinical Findings Intake & Output: Intake & Output 08/07/17 08/07/17 08/08/17 15:59 23:59 07:59 Intake Total 240 / 240 225 / 225 Output Total 600 / 600 575 / 575 200 / 200 Balance -600 / -600 -335 / -335 25 / 25 Weight 89.1 kg - VTE Documentation of Mechanical Device: Intermittent pneumatic compression device
[2017-08-08] MEDS: Sucralfate 1 GM TABLET PO SCH ×4 (07:52→19:46)
[2017-08-08] MEDS: Furosemide 20 MG/2 ML VIAL IVP SCH ×2 (08:45→16:40)
[2017-08-08] MEDS: Folic Acid 1 MG TABLET PO SCH (08:45)
[2017-08-08] MEDS: *HR* Amiodarone 200 MG TABLET PO SCH (08:45)
[2017-08-08 10:08] LABS: Hemoglobin 8.1 g/dL (11.5-15.4)
[2017-08-08 10:56] LABS: Eosinophils % 0.6 %; Hematocrit 27.1 % (35.3-44.9); Immature Granulocytes % 0.6 % (0-4); Lymphocytes # 0.6 K/mcL (0.6-4.6); Lymphocytes % 10.3 %; Mean Corpuscular HGB Conc 29.9 g/dL (31.6-35.5); Mean Corpuscular Volume 97.1 fL (83.0-100.0); Mean Platelet Volume 10.8 fL (9.4-12.4); Monocytes # 0.4 K/mcL (0.0-1.3); Monocytes % 6.4 %; Neutrophils # 4.4 K/mcL (1.6-8.9); Nucleated Red Blood Cells 0.6 /100 WBC (0); Platelet Count 72 K/mcL (140-400); Red Blood Count 2.79 M/mcL (3.82-4.97); Segmented Neutrophils % 82.1 %
[2017-08-08] MEDS: Norepinephrine 4 MG in D5% in Water 250 ML IVC SCH (13:40)
--- NOTE | 2017-08-08 15:26 | Electrocardiograph Report ---
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
[2017-08-08] MEDS: ALPRAZolam 0.5 MG TABLET PO SCH (19:46)
[2017-08-08] MEDS: FLUoxetine 20 MG CAPSULE PO SCH (19:47)
[2017-08-08] MEDS: rOPINIRole 1 MG TABLET PO SCH (19:47)
[2017-08-09] MEDS: Ipratropium/Albuterol Neb 3 ML AER SCH ×7 (03:51→23:23)
[2017-08-09] MEDS: Norepinephrine 4 MG in D5% in Water 250 ML IVC SCH (04:12)
[2017-08-09] MEDS: Pantoprazole 40 MG VIAL IVP SCH ×2 (05:26→17:37)
[2017-08-09] MEDS: Levothyroxine Sodium 100 MCG VIAL IVP SCH (05:27)
[2017-08-09 05:54] LABS: Basophils % 0.2 %; Eosinophils # 0.1 K/mcL (0.0-0.6); Hematocrit 26.8 % (35.3-44.9); Immature Granulocytes % 0.7 % (0-4); Lymphocytes # 0.6 K/mcL (0.6-4.6); Lymphocytes % 9.5 %; Mean Corpuscular HGB Conc 29.9 g/dL (31.6-35.5); Mean Corpuscular Hemoglobin 29.4 pg (28.0-33.3); Mean Corpuscular Volume 98.5 fL (83.0-100.0); Mean Platelet Volume 10.7 fL (9.4-12.4); Monocytes # 0.3 K/mcL (0.0-1.3); Monocytes % 5.8 %; Neutrophils # 4.8 K/mcL (1.6-8.9); Red Blood Count 2.72 M/mcL (3.82-4.97); Red Cell Distribution Width 18.1 % (11.5-14.5); Segmented Neutrophils % 82.8 %
[2017-08-09 05:56] LABS: Platelet Count 74 K/mcL (140-400)
[2017-08-09 06:14] LABS: Calcium 8.6 mg/dL (8.6-10.3); Potassium 3.8 mEq/L (3.5-5.1)
--- NOTE | 2017-08-09 07:16 | Pulmonology Progress Note ---
<Bonilla Bridges - Last Filed: 08/09/17 08:57> Date of Encounter: 08/09/17 Time of Encounter: 08:43 Assessment and Plan (1) Myxedema Current Visit: Yes Status: Acute Myxedema secondary to severe hypothyroidism, improved Patient has been admitted for severe hypothyroidism in the past requiring increased use of thyroxine On arrival the patient did have significant hypothermia, hypotension, anemia Her TSH on arrival was 29.47, free T3 2 0.53, free T4 1 0.64 Symptoms consistent with myxedema such as periocular and pretibial or edema, significant weakness, cardiomyopathy The patient received 300mcg IV levothyroxine in the ED Plan: -We will continue the patient on 150 g levothyroxine IV while in the hospital -Patient/ECF will need medication regimen clarification at the time of discharge -For LE edema, we will wrap legs (2) Hypotension Current Visit: Yes Status: Acute Hypotension, likely secondary to cardiogenic shock Patient has myxedema due to severe hypothyroidism I suspect that this is the cause of the patient's acute exacerbation of CHF and hypotension The patient has been on Levophed which has increased her map Infectious etiology is unlikely, however we will monitor for signs of infection and consider antibiotics if necessary Plan: -Continue levophed, uptitrate due to low MAP -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 Qualifiers: Hypotension type: other hypotension type Qualified Code(s): I95.89 - Other hypotension (3) CHF (congestive heart failure), NYHA class I Current Visit: Yes Status: Acute Acute exacerbation of congestive heart failure secondary to severe hypothyroidism Chest x-ray does demonstrate moderate CHF and pulmonary vascular congestion Echocardiogram March 2017 does demonstrate an ejection fraction of 45%, diastolic dysfunction with moderate to severe mitral regurgitation The patient was hypotensive on admission and hypothermic We will continue pressors, and diuresis gently as the patient tolerates Plan: -Continue gentle diuesis as tolerated by BP, less aggressive -Wrap legs for edema Qualifiers: Congestive heart failure type: systolic Congestive heart failure chronicity : acute on chronic Qualified Code(s): I50.23 - Acute on chronic systolic ( congestive) heart failure (4) Acute blood loss anemia Current Visit: Yes Status: Acute Acute anemia, hemoglobin 6.7 on arrival Improved status post 2 units packed red blood cells Patients anemia is likely secondary to chronic blood loss and macrocytic anemia Macrocytosis may be secondary to dietary deficiency versus severe hypothyroidism Peripheral smear is consistent with acute blood loss anemia, vitamin B12 1072, folate greater than 22, MMA pending Gastroenterology is on board and considering EGD for acute blood Appears to be more stable now Plan: -Continue to monitor daily CBCs -Consult GI for EGD if necessary (5) Atrial fibrillation with slow ventricular response Current Visit: Yes Status: Acute Currently stable on levofed and home meds Patient is not a candidate for anticoagulation due to GI bleeding Continuous cardiac monitoring (6) Weakness Current Visit: Yes Status: Acute Likely secondary to myxedema plus symptomatically anemia We will work on treating the underlying causes to reduce weakness PT and OT consult when the patient can tolerate (7) COPD (chronic obstructive pulmonary disease) Current Visit: No Status: Chronic COPD without acute exacerbation We will give the patient scheduled duo nebs and as needed albuterol We will give the patient BiPAP overnight Although not in exacerbation, she continues to have significant wheezes We will start symbicort while in hospital in place of home inhalers Qualifiers: COPD type: chronic bronchitis Chronic bronchitis type: mucopurulent Qualified Code(s): J41.1 - Mucopurulent chronic bronchitis (8) H/O aortic valve replacement Current Visit: No Status: Chronic (9) DVT prophylaxis Current Visit: Yes Status: Chronic SCDs due to GI bleeding Subjective Principal diagnosis: CHF Interval history: The patient is resting comfortably in bed at time of examination. She does say that she is feeling significantly better than she did yesterday. She had no acute events overnight, did wear BiPAP throughout most the night. Objective PUL Vital signs: Last Vital Signs Temp 96.6 F L 08/09/17 04:37 Pulse 53 08/09/17 01:00 Resp 17 08/09/17 03:51 BP 142/62 08/09/17 03:51 Pulse Ox 95 08/09/17 03:51 Gen: Vitals noted. No acute distress. AAOx3 HEENT: PERRL/EOMI, oropharynx clear, Normocephalic, atraumatic. Periocular swelling improved and minimal redness present Neck: Supple. No adenopathy. Right IJ CVC in place with no obvious tissue abnormalities and surrounding tissue Cardiac: RRR, 3/6 systolic murmur heard best over aortic valve, +S1/S2 Pulmonary: Diffuse crackles are heard throughout the lung Abdomen: soft, nontender, BS noted, no guarding Back: Nontender throughout. MSK: ROM intact, no joint swelling noted Extremities: 1+ pretibial edema, no apparent cyanosis Neuro: moves all extremities, no focal deficits Psych: Appropriate mood and behavior Results - Laboratory Findings CBC and BMP: 08/09/17 04:00 08/09/17 04:00 ABG ABG pH 7.34 pH Units (7.32-7.45) 08/07/17 04:14 ABG pCO2 77 mmHg (35-45) H* 08/07/17 04:14 ABG pO2 83 mmHg (85-104) L 08/07/17 04:14 ABG O2 Saturation 95 % (95-98) 08/07/17 04:14 PT/INR, D-dimer PT 10.8 Seconds (9.4-12.1) 08/05/17 16:50 Abnormal lab findings: Abnormal lab results RBC 2.72 M/mcL (3.82-4.97) L 08/09/17 04:00 Hgb 8.0 g/dL (11.5-15.4) L 08/09/17 04:00 Hct 26.8 % (35.3-44.9) L 08/09/17 04:00 MCHC 29.9 g/dL (31.6-35.5) L 08/09/17 04:00 RDW 18.1 % (11.5-14.5) H 08/09/17 04:00 Plt Count 74 K/mcL (140-400) L 08/09/17 04:00 Metamyelocytes % 1.0 % (0) H 08/06/17 04:00 Myelocytes % 3.0 % (0) H 08/06/17 04:00 Nucleated RBCs/100 WBC 0.6 /100 WBC (0) H 08/08/17 08:50 Toxic Granulation Present (Not Present) A 08/06/17 11:20 Polychromasia 1+ (Not Present) A 08/06/17 11:20 Hypochromasia Present (Not Present) A 08/06/17 04:00 Basophilic Stippling 1+ (Not Present) A 08/06/17 11:20 Anisocytosis 1+ (Not Present) A 08/06/17 11:20 ABG pCO2 77 mmHg (35-45) H* 08/07/17 04:14 ABG pO2 83 mmHg (85-104) L 08/07/17 04:14 ABG HCO3 41 mEq/L (21-27) H 08/07/17 04:14 ABG Total CO2 44 mEq/L (20-26) H 08/07/17 04:14 ABG Base Excess 13 mEq/L (-2 to 3) H 08/07/17 04:14 Chloride 97 mEq/L (98-107) L 08/09/17 04:00 Carbon Dioxide 41 mEq/L (23-29) H* 08/09/17 04:00 BUN 29 mg/dL (8-23) H 08/09/17 04:00 Creatinine 1.53 mg/dL (0.60-1.20) H 08/09/17 04:00 Est GFR ( Amer) 40 (> 60) L 08/09/17 04:00 Est GFR (Non-Af Amer) 33 (> 60) L 08/09/17 04:00 Folate > 22.3 ng/mL (3.0-16.0) H 08/07/17 03:05 TSH 29.467 mcIU/mL (0.340-5.600) H 08/05/17 16:50 Urine Clarity Cloudy (Clear) A 08/05/17 21:26 Urine Protein 100 mg/dL (Neg-Trace) H 08/05/17 21:26 Urine Bilirubin Small (Negative) H 08/05/17 21:26 Ur Leukocyte Esterase Small (Negative) H 08/05/17 21:26 Urine Microscopic WBC 5-15 per hpf (0-3) H 08/05/17 21:26 Ur Squamous Epith Cells Many per lpf (None-Few) H 08/05/17 21:26 Ur Renal Epithelial Cell Moderate per hpf (None-Few) H 08/05/17 21:26 Amorphous Sediment Moderate (Few) H 08/05/17 21:26 Ur Culture Indicated? NO. (NO) A 08/05/17 21:26 - Microbiology Findings Microbiology Findings: Microbiology, Last 48 Hours 08/06/17 03:40 Blood Culture - Preliminary Peripheral Venipuncture No growth. - Clinical Findings Intake & Output: Intake & Output 08/08/17 08/08/1718 15:59 23:59 07:59 Intake Total 240 / 240 272.7 / 272.7 Output Total 250 / 250 575 / 575 425 / 425 Balance -250 / -250 -335 / -335 -152.3 / -152.3 - VTE Documentation of Mechanical Device: Intermittent pneumatic compression device Consult Discharge Plan - Plan Referrals: Francisco Melgar Jr [Primary Care Provider] - <Carlos Pennington - Last Filed: 08/09/17 10:15> Date of Encounter: 08/09/17 Objective PUL Vital signs: Last Vital Signs Temp 97.6 F 08/09/17 08:15 Pulse 50 08/09/17 06:00 Resp 17 08/09/17 07:40 BP 84/42 08/09/17 06:00 Pulse Ox 95 08/09/17 07:40 Results - Laboratory Findings CBC and BMP: 08/09/17 04:00 08/09/17 04:00 ABG ABG pH 7.34 pH Units (7.32-7.45) 08/07/17 04:14 ABG pCO2 77 mmHg (35-45) H* 08/07/17 04:14 ABG pO2 83 mmHg (85-104) L 08/07/17 04:14 ABG O2 Saturation 95 % (95-98) 08/07/17 04:14 PT/INR, D-dimer PT 10.8 Seconds (9.4-12.1) 08/05/17 16:50 Abnormal lab findings: Abnormal lab results RBC 2.72 M/mcL (3.82-4.97) L 08/09/17 04:00 Hgb 8.0 g/dL (11.5-15.4) L 08/09/17 04:00 Hct 26.8 % (35.3-44.9) L 08/09/17 04:00 MCHC 29.9 g/dL (31.6-35.5) L 08/09/17 04:00 RDW 18.1 % (11.5-14.5) H 08/09/17 04:00 Plt Count 74 K/mcL (140-400) L 08/09/17 04:00 Metamyelocytes % 1.0 % (0) H 08/06/17 04:00 Myelocytes % 3.0 % (0) H 08/06/17 04:00 Nucleated RBCs/100 WBC 0.6 /100 WBC (0) H 08/08/17 08:50 Toxic Granulation Present (Not Present) A 08/06/17 11:20 Polychromasia 1+ (Not Present) A 08/06/17 11:20 Hypochromasia Present (Not Present) A 08/06/17 04:00 Basophilic Stippling 1+ (Not Present) A 08/06/17 11:20 Anisocytosis 1+ (Not Present) A 08/06/17 11:20 ABG pCO2 77 mmHg (35-45) H* 08/07/17 04:14 ABG pO2 83 mmHg (85-104) L 08/07/17 04:14 ABG HCO3 41 mEq/L (21-27) H 08/07/17 04:14 ABG Total CO2 44 mEq/L (20-26) H 08/07/17 04:14 ABG Base Excess 13 mEq/L (-2 to 3) H 08/07/17 04:14 Chloride 97 mEq/L (98-107) L 08/09/17 04:00 Carbon Dioxide 41 mEq/L (23-29) H* 08/09/17 04:00 BUN 29 mg/dL (8-23) H 08/09/17 04:00 Creatinine 1.53 mg/dL (0.60-1.20) H 08/09/17 04:00 Est GFR ( Amer) 40 (> 60) L 08/09/17 04:00 Est GFR (Non-Af Amer) 33 (> 60) L 08/09/17 04:00 Folate > 22.3 ng/mL (3.0-16.0) H 08/07/17 03:05 TSH 29.467 mcIU/mL (0.340-5.600) H 08/05/17 16:50 Urine Clarity Cloudy (Clear) A 08/05/17 21: Urine Protein 100 mg/dL (Neg-Trace) H 08/05/17 21:26 Urine Bilirubin Small (Negative) H 08/05/17 21:26 Ur Leukocyte Esterase Small (Negative) H 08/05/17 21:26 Urine Microscopic WBC 5-15 per hpf (0-3) H 08/05/17 21:26 Ur Squamous Epith Cells Many per lpf (None-Few) H 08/05/17 21:26 Ur Renal Epithelial Cell Moderate per hpf (None-Few) H 08/05/17 21:26 Amorphous Sediment Moderate (Few) H 08/05/17 21:26 Ur Culture Indicated? NO. (NO) A 08/05/17 21:26 - Microbiology Findings Microbiology Findings: Microbiology, Last 48 Hours 08/06/17 03:40 Blood Culture - Preliminary Peripheral Venipuncture No growth. - Clinical Findings Intake & Output: Intake & Output 08/08/17 08/09/17 08/09/17 23:59 07:59 15:59 Intake Total 240 / 240 272.7 / 272.7 Output Total 575 / 575 425 / 425 200 / 200 Balance -335 / -335 -152.3 / -152.3 -200 / -200 - Attending Attestation I examined this patient and my medical decision-making was reviewed with the Resident Physician. I agree with the documented findings, disposition and treatment plan as described except to the extent set forth below. We independently had [id number] contact with the patient Patient seen and examined at bedside Labs, radiology, chart personally reviewed. Management was reviewed during multidisciplinary critical care rounds. 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 Start ICS/LABA for COPD continue schedule bronchodilators Cards: Acute on chronic systolic heart failure Remains on low-dose norepinephrine which we will attempt to wean off by adding Midorine no evidence of end organ hypoperfusion currently FEN-GI: Tolerating diet history of GI AVMs but no active bleeding seen by GI and plan for endoscopy on this admission unless overt evidence of hemorrhage Renal: Chronic kidney disease urine output monitored continue gentle diuresis ID: Continue to monitor no clear evidence of infection at present Heme/Onc: Continue DVT prophylaxis with SCDs she has chronic anemia with stable blood counts today transfusion goal >7 Endo: Glucose Monitored; continue levothyroxine for hypothyroidism Integ/MSK: Skin Care per routine ICU Nursing Protocol to prevent ulcers. Lines: All lines examined without evidence of infection : Dispo: Remain in ICU today CODE: Full
[2017-08-09] MEDS ORDERED: Furosemide 40 MG/4 ML VIAL IVP ONE (07:44)
[2017-08-09] MEDS: *HR* Amiodarone 200 MG TABLET PO SCH (09:23)
[2017-08-09] MEDS: Sucralfate 1 GM TABLET PO SCH ×4 (09:23→20:29)
[2017-08-09] MEDS: Folic Acid 1 MG TABLET PO SCH (09:23)
[2017-08-09] MEDS: Budesonide/Formoterol 80/4.5 MDI IH SCH ×2 (11:46→19:39)
[2017-08-09] MEDS: FLUoxetine 20 MG CAPSULE PO SCH (20:24)
[2017-08-09] MEDS: rOPINIRole 1 MG TABLET PO SCH (20:24)
[2017-08-09] MEDS: ALPRAZolam 0.5 MG TABLET PO SCH (20:25)
[2017-08-10] MEDS: Ipratropium/Albuterol Neb 3 ML AER SCH ×5 (03:42→20:25)
[2017-08-10 04:55] LABS: Calcium 8.6 mg/dL (8.6-10.3); Potassium 3.8 mEq/L (3.5-5.1)
[2017-08-10 05:24] LABS: Basophils % 0.2 %; Eosinophils # 0.1 K/mcL (0.0-0.6); Eosinophils % 1.3 %; Hematocrit 26.1 % (35.3-44.9); Hemoglobin 7.8 g/dL (11.5-15.4); Immature Granulocytes % 0.7 % (0-4); Lymphocytes # 0.5 K/mcL (0.6-4.6); Lymphocytes % 10.9 %; Mean Corpuscular HGB Conc 29.9 g/dL (31.6-35.5); Mean Corpuscular Hemoglobin 29.8 pg (28.0-33.3); Mean Corpuscular Volume 99.6 fL (83.0-100.0); Mean Platelet Volume 11.5 fL (9.4-12.4); Monocytes # 0.3 K/mcL (0.0-1.3); Monocytes % 6.9 %; Neutrophils # 3.6 K/mcL (1.6-8.9); Red Blood Count 2.62 M/mcL (3.82-4.97)
[2017-08-10 05:25] LABS: Platelet Count 51 K/mcL (140-400)
[2017-08-10] MEDS: Pantoprazole 40 MG VIAL IVP SCH ×2 (05:46→17:45)
[2017-08-10] MEDS: Norepinephrine 4 MG in D5% in Water 250 ML IVC SCH (05:46)
[2017-08-10] MEDS: Levothyroxine Sodium 100 MCG VIAL IVP SCH (05:46)
--- NOTE | 2017-08-10 08:44 | Pulmonology Progress Note ---
<AditiCarlos W - Last Filed: 08/10/17 09:17> Date of Encounter: 08/10/17 Objective PUL Vital signs: Last Vital Signs Temp 97.1 F L 08/10/17 07:49 Pulse 52 08/10/17 06:01 Resp 15 08/10/17 07:21 BP 90/39 08/10/17 06:01 Pulse Ox 95 08/10/17 07:21 Results - Laboratory Findings CBC and BMP: 08/10/17 04:00 08/10/17 04:00 ABG ABG pH 7.34 pH Units (7.32-7.45) 08/07/17 04:14 ABG pCO2 77 mmHg (35-45) H* 08/07/17 04:14 ABG pO2 83 mmHg (85-104) L 08/07/17 04:14 ABG O2 Saturation 95 % (95-98) 08/07/17 04:14 PT/INR, D-dimer PT 10.8 Seconds (9.4-12.1) 08/05/17 16:50 Abnormal lab findings: Abnormal lab results RBC 2.62 M/mcL (3.82-4.97) L 08/10/17 04:00 Hgb 7.8 g/dL (11.5-15.4) L 08/10/17 04:00 Hct 26.1 % (35.3-44.9) L 08/10/17 04:00 MCHC 29.9 g/dL (31.6-35.5) L 08/10/17 04:00 RDW 18.0 % (11.5-14.5) H 08/10/17 04:00 Plt Count 51 K/mcL (140-400) L 08/10/17 04:00 Metamyelocytes % 1.0 % (0) H 08/06/17 04:00 Myelocytes % 3.0 % (0) H 08/06/17 04:00 Lymphocytes # 0.5 K/mcL (0.6-4.6) L 08/10/17 04:00 Nucleated RBCs/100 WBC 0.6 /100 WBC (0) H 08/08/17 08:50 Toxic Granulation Present (Not Present) A 08/06/17 11:20 Polychromasia 1+ (Not Present) A 08/06/17 11:20 Hypochromasia Present (Not Present) A 08/06/17 04:00 Basophilic Stippling 1+ (Not Present) A 08/06/17 11:20 Anisocytosis 1+ (Not Present) A 08/06/17 11:20 ABG pCO2 77 mmHg (35-45) H* 08/07/17 04:14 ABG pO2 83 mmHg (85-104) L 08/07/17 04:14 ABG HCO3 41 mEq/L (21-27) H 08/07/17 04:14 ABG Total CO2 44 mEq/L (20-26) H 08/07/17 04:14 ABG Base Excess 13 mEq/L (-2 to 3) H 08/07/17 04:14 Chloride 97 mEq/L (98-107) L 08/10/17 04:00 Carbon Dioxide 42 mEq/L (23-29) H* 08/10/17 04:00 BUN 29 mg/dL (8-23) H 08/10/17 04:00 Creatinine 1.40 mg/dL (0.60-1.20) H 08/10/17 04:00 Est GFR ( Amer) 44 (> 60) L 08/10/17 04:00 Est GFR (Non-Af Amer) 36 (> 60) L 08/10/17 04:00 Folate > 22.3 ng/mL (3.0-16.0) H 08/07/17 03:05 TSH 29.467 mcIU/mL (0.340-5.600) H 08/05/17 16:50 Urine Clarity Cloudy (Clear) A 08/05/17 21:26 Urine Protein 100 mg/dL (Neg-Trace) H 08/05/17 21:26 Urine Bilirubin Small (Negative) H 08/05/17 21:26 Ur Leukocyte Esterase Small (Negative) H 08/05/17 21:26 Urine Microscopic WBC 5-15 per hpf (0-3) H 08/05/17 21:26 Ur Squamous Epith Cells Many per lpf (None-Few) H 08/05/17 21:26 Ur Renal Epithelial Cell Moderate per hpf (None-Few) H 08/05/17 21:26 Amorphous Sediment Moderate (Few) H 08/05/17 21:26 Ur Culture Indicated? NO. (NO) A 08/05/17 21:26 - Clinical Findings Intake & Output: Intake & Output 08/09/17 08/10/17 08/10/17 23:59 07:59 15:59 Intake Total 19.8 / 19.8 Output Total 325 / 325 250 / 250 Balance -325 / -325 -230.2 / -230.2 Weight 93.6 kg Consult Discharge Plan - Plan Referrals: Francisco Melgar Jr [Primary Care Provider] - - Attending Attestation I examined this patient and my medical decision-making was reviewed with the Resident Physician. I agree with the documented findings, disposition and treatment plan as described except to the extent set forth below. We independently had [id number] contact with the patient Patient seen and examined at bedside Labs, radiology, chart personally reviewed. Management was reviewed during multidisciplinary critical care rounds. DRY BOX TENDER: Awake and alert follows commands cont delirium precautions. Pulm: Acute on chronic respiratory failure stable on nasal cannula (baseline) NIV at night Cards: Reamins on LEvophed cont diuresis. midodrine started but will hold because no significant improvement. FEN-GI: ADAT Renal: Chronic Kidney Injury stable UOP cont diuresis. monitor sCr daily (stable ) ID: No acitve issues Heme/Onc: SCDs for DVT prophylaxis given Endo: Glucose Monitored cont IV levothyroxine I suspect some component of joaquín insuff will factoring into low BP will restart hydrocortisone Integ/MSK: Skin Care per routine ICU Nursing Protocol to prevent ulcers. Lines: All lines examined without evidence of infection : Dispo: Remain in ICU today CODE: Full. <Yanick Marinelli - Last Filed: 08/10/17 13:20> Date of Encounter: 08/10/17 Time of Encounter: 08:44 Assessment and Plan (1) Myxedema Current Visit: Yes Status: Acute Myxedema secondary to severe hypothyroidism, improved - Patient has been admitted for severe hypothyroidism in the past requiring increased use of thyroxine - On arrival the patient did have significant hypothermia, hypotension, anemia - Her TSH on arrival was 29.47, free T3 2 0.53, free T4 1 0.64 - Symptoms consistent with myxedema such as periocular and pretibial or edema, significant weakness, cardiomyopathy - The patient received 300mcg IV levothyroxine in the ED Plan: - 150 g levothyroxine IV (2) Hypotension Current Visit: No Status: Resolved Hypotension, likely secondary to cardiogenic shock - Patient has myxedema due to severe hypothyroidism - The patient has been on Levophed which has increased her map Plan: - May require additional medication for halfway management - Norepinephrine Qualifiers: Hypotension type: hypotension due to drug Qualified Code(s): I95.2 - Hypotension due to drugs (3) CHF (congestive heart failure), NYHA class I Current Visit: Yes Status: Acute Acute exacerbation of congestive heart failure secondary to severe hypothyroidism - Chest x-ray demonstrated moderate CHF and pulmonary vascular congestion - Echocardiogram March 2017 does demonstrate an EF of 45%, diastolic dysfunction with moderate to severe MR - The patient was hypotensive on admission and hypothermic - We will continue pressors, and diuresis gently as the patient tolerates Plan: - Continue gentle diuesis as tolerated by BP, less aggressive - Wrap legs for edema Qualifiers: Congestive heart failure type: systolic Congestive heart failure chronicity : acute on chronic Qualified Code(s): I50.23 - Acute on chronic systolic ( congestive) heart failure (4) Acute blood loss anemia Current Visit: Yes Status: Acute - Acute anemia, hemoglobin 6.7 on arrival - Improved status post 2 units packed red blood cells - Transfuse if Hb <7 - Protonix 40 mg IV every 12 - Ferrous sulfate 324 mg by mouth 1200 (5) Atrial fibrillation Current Visit: No Status: Chronic - Rate controlled at this time - Patient is not a candidate for anticoagulation due to GI bleeding - Continuous cardiac monitoring - Amiodarone 200 mg by mouth daily Qualifiers: Atrial fibrillation type: paroxysmal Qualified Code(s): I48.0 - Paroxysmal atrial fibrillation (6) COPD (chronic obstructive pulmonary disease) Current Visit: No Status: Chronic COPD without acute exacerbation - Symbicort 2 puffs inhaled twice a day R - DuoNeb 3 mL every 4 Qualifiers: COPD type: emphysema Emphysema type: unspecified Qualified Code(s): J43.9 - Emphysema, unspecified (7) DVT prophylaxis Current Visit: No Status: Acute SCDs due to GI bleeding Subjective Principal diagnosis: CHF Interval history: Patient was seen and examined at bedside this morning. She does say that she is feeling better than she did yesterday. Solu-Cortef 50 mg IV every 6 started today; patient condition may be due to adrenal insufficiency. Has no complaints at this time. Objective PUL Vital signs: Last Vital Signs Temp 97.1 F L 08/10/17 07:49 Pulse 52 08/10/17 06:01 Resp 15 08/10/17 07:21 BP 90/39 08/10/17 06:01 Pulse Ox 95 08/10/17 07:21 General appearance: no acute distress Eyes: nonicteric ENT: oropharynx moist Neck: supple Effort: normal Auscultation: bilateral: clear Percussion: bilateral: not dull Tactile fremitus: bilateral: normal Cardiovascular: regular rate and rhythm, other (3/6 systolic murmur heard best over aortic valve) Integumentary: normal Extremities: no cyanosis, no edema, no clubbing Musculoskeletal: no deformities, ROM normal normal mental status, non-focal exam mood appropriate, affect normal Results - Laboratory Findings CBC and BMP: 08/10/17 04:00 08/10/17 04:00 ABG ABG pH 7.34 pH Units (7.32-7.45) 08/07/17 04:14 ABG pCO2 77 mmHg (35-45) H* 08/07/17 04:14 ABG pO2 83 mmHg (85-104) L 08/07/17 04:14 ABG O2 Saturation 95 % (95-98) 08/07/17 04:14 PT/INR, D-dimer PT 10.8 Seconds (9.4-12.1) 08/05/17 16:50 Abnormal lab findings: Abnormal lab results RBC 2.62 M/mcL (3.82-4.97) L 08/10/17 04:00 Hgb 7.8 g/dL (11.5-15.4) L 08/10/17 04:00 Hct 26.1 % (35.3-44.9) L 08/10/17 04:00 MCHC 29.9 g/dL (31.6-35.5) L 08/10/17 04:00 RDW 18.0 % (11.5-14.5) H 08/10/17 04:00 Plt Count 51 K/mcL (140-400) L 08/10/17 04:00 Metamyelocytes % 1.0 % (0) H 08/06/17 04:00 Myelocytes % 3.0 % (0) H 08/06/17 04:00 Lymphocytes # 0.5 K/mcL (0.6-4.6) L 08/10/17 04:00 Nucleated RBCs/100 WBC 0.6 /100 WBC (0) H 08/08/17 08:50 Toxic Granulation Present (Not Present) A 08/06/17 11:20 Polychromasia 1+ (Not Present) A 08/06/17 11:20 Hypochromasia Present (Not Present) A 08/06/17 04:00 Basophilic Stippling 1+ (Not Present) A 08/06/17 11:20 Anisocytosis 1+ (Not Present) A 08/06/17 11:20 ABG pCO2 77 mmHg (35-45) H* 08/07/17 04:14 ABG pO2 83 mmHg (85-104) L 08/07/17 04:14 ABG HCO3 41 mEq/L (21-27) H 08/07/17 04:14 ABG Total CO2 44 mEq/L (20-26) H 08/07/17 04:14 ABG Base Excess 13 mEq/L (-2 to 3) H 08/07/17 04:14 Chloride 97 mEq/L (98-107) L 08/10/17 04:00 Carbon Dioxide 42 mEq/L (23-29) H* 08/10/17 04:00 BUN 29 mg/dL (8-23) H 08/10/17 04:00 Creatinine 1.40 mg/dL (0.60-1.20) H 08/10/17 04:00 Est GFR ( Amer) 44 (> 60) L 08/10/17 04:00 Est GFR (Non-Af Amer) 36 (> 60) L 08/10/17 04:00 Folate > 22.3 ng/mL (3.0-16.0) H 08/07/17 03:05 TSH 29.467 mcIU/mL (0.340-5.600) H 08/05/17 16:50 Urine Clarity Cloudy (Clear) A 08/05/17 21:26 Urine Protein 100 mg/dL (Neg-Trace) H 08/05/17 21:26 Urine Bilirubin Small (Negative) H 08/05/17 21:26 Ur Leukocyte Esterase Small (Negative) H 08/05/17 21:26 Urine Microscopic WBC 5-15 per hpf (0-3) H 08/05/17 21:26 Ur Squamous Epith Cells Many per lpf (None-Few) H 08/05/17 21:26 Ur Renal Epithelial Cell Moderate per hpf (None-Few) H 08/05/17 21:26 Amorphous Sediment Moderate (Few) H 08/05/17 21:26 Ur Culture Indicated? NO. (NO) A 08/05/17 21:26 - Clinical Findings Intake & Output: Intake & Output 08/09/17 08/10/17 08/10/17 23:59 07:59 15:59 Intake Total 19.8 / 19.8 Output Total 325 / 325 250 / 250 Balance -325 / -325 -230.2 / -230.2 Weight 93.6 kg - VTE Documentation of Mechanical Device: Intermittent pneumatic compression device
[2017-08-10] MEDS ORDERED: Hydrocortisone Sodium Succ 100 MG/2 ML VIAL IVP ONE (08:58)
[2017-08-10] MEDS: *HR* Amiodarone 200 MG TABLET PO SCH (09:10)
[2017-08-10] MEDS: Sucralfate 1 GM TABLET PO SCH ×4 (09:10→20:12)
[2017-08-10] MEDS: Budesonide/Formoterol 80/4.5 MDI IH SCH ×2 (11:08→20:25)
[2017-08-10] MEDS: Hydrocortisone Sodium Succ 100 MG/2 ML VIAL IVP SCH ×2 (11:13→17:45)
[2017-08-10] MEDS: rOPINIRole 1 MG TABLET PO SCH (20:09)
[2017-08-10] MEDS: FLUoxetine 20 MG CAPSULE PO SCH (20:10)
[2017-08-10] MEDS: ALPRAZolam 0.5 MG TABLET PO SCH (20:10)
[2017-08-11] MEDS: Ipratropium/Albuterol Neb 3 ML AER SCH ×7 (00:04→23:03)
[2017-08-11] MEDS: Hydrocortisone Sodium Succ 100 MG/2 ML VIAL IVP SCH ×3 (00:08→14:18)
[2017-08-11] MEDS: Norepinephrine 4 MG in D5% in Water 250 ML IVC SCH (05:35)
[2017-08-11 05:36] LABS: Hematocrit 27.1 % (35.3-44.9); Hemoglobin 8.1 g/dL (11.5-15.4); Immature Granulocytes % 0.9 % (0-4); Lymphocytes # 0.1 K/mcL (0.6-4.6); Lymphocytes % 3.4 %; Mean Corpuscular HGB Conc 29.9 g/dL (31.6-35.5)
[2017-08-11 05:38] LABS: Immature Platelets 6.2 % (1.1-6.1); Mean Corpuscular Hemoglobin 29.8 pg (28.0-33.3); Mean Corpuscular Volume 99.6 fL (83.0-100.0); Mean Platelet Volume 11.5 fL (9.4-12.4); Monocytes # 0.1 K/mcL (0.0-1.3); Monocytes % 1.8 %; Neutrophils # 3.1 K/mcL (1.6-8.9); Red Blood Count 2.72 M/mcL (3.82-4.97); Red Cell Distribution Width 17.7 % (11.5-14.5); Segmented Neutrophils % 93.9 %
[2017-08-11 05:39] LABS: Platelet Count 41 K/mcL (140-400)
[2017-08-11] MEDS: Pantoprazole 40 MG VIAL IVP SCH ×2 (05:42→18:00)
[2017-08-11] MEDS: Levothyroxine Sodium 100 MCG VIAL IVP SCH (05:42)
[2017-08-11 05:53] LABS: Calcium 9.2 mg/dL (8.6-10.3); Potassium 4.1 mEq/L (3.5-5.1)
[2017-08-11 05:56] LABS: Anisocytosis 1+ (Not Present); Hypochromasia Present (Not Present); Macrocytosis Present (Not Present)
[2017-08-11 05:57] LABS: Platelet Estimate Decreased (Normal)
--- NOTE | 2017-08-11 07:05 | Pulmonology Progress Note ---
<Erik Egan M - Last Filed: 08/11/17 10:35> Date of Encounter: 08/11/17 Objective PUL Vital signs: Last Vital Signs Temp 96.2 F L 08/11/17 04:00 Pulse 59 08/11/17 09:00 Resp 10 08/11/17 09:00 BP 113/60 08/11/17 09:00 Pulse Ox 99 08/11/17 09:00 Results - Laboratory Findings CBC and BMP: 08/11/17 04:44 08/11/17 04:44 ABG ABG pH 7.34 pH Units (7.32-7.45) 08/07/17 04:14 ABG pCO2 77 mmHg (35-45) H* 08/07/17 04:14 ABG pO2 83 mmHg (85-104) L 08/07/17 04:14 ABG O2 Saturation 95 % (95-98) 08/07/17 04:14 PT/INR, D-dimer PT 10.8 Seconds (9.4-12.1) 08/05/17 16:50 Abnormal lab findings: Abnormal lab results WBC 3.3 K/mcL (4.3-11.1) L 08/11/17 04:44 RBC 2.72 M/mcL (3.82-4.97) L 08/11/17 04:44 Hgb 8.1 g/dL (11.5-15.4) L 08/11/17 04:44 Hct 27.1 % (35.3-44.9) L 08/11/17 04:44 MCHC 29.9 g/dL (31.6-35.5) L 08/11/17 04:44 RDW 17.7 % (11.5-14.5) H 08/11/17 04:44 Plt Count 41 K/mcL (140-400) L 08/11/17 04:44 Metamyelocytes % 1.0 % (0) H 08/06/17 04:00 Myelocytes % 3.0 % (0) H 08/06/17 04:00 Lymphocytes # 0.1 K/mcL (0.6-4.6) L 08/11/17 04:44 Nucleated RBCs/100 WBC 0.6 /100 WBC (0) H 08/08/17 08:50 Toxic Granulation Present (Not Present) A 08/06/17 11:20 Platelet Estimate Decreased (Normal) L 08/11/17 04:44 Immature Plt Fraction 6.2 % (1.1-6.1) H 08/11/17 04:44 Polychromasia 1+ (Not Present) A 08/06/17 11:20 Hypochromasia Present (Not Present) A 08/11/17 04:44 Basophilic Stippling 1+ (Not Present) A 08/06/17 11:20 Anisocytosis 1+ (Not Present) A 08/11/17 04:44 Macrocytosis Present (Not Present) A 08/11/17 04:44 ABG pCO2 77 mmHg (35-45) H* 08/07/17 04:14 ABG pO2 83 mmHg (85-104) L 08/07/17 04:14 ABG HCO3 41 mEq/L (21-27) H 08/07/17 04:14 ABG Total CO2 44 mEq/L (20-26) H 08/07/17 04:14 ABG Base Excess 13 mEq/L (-2 to 3) H 08/07/17 04:14 Chloride 95 mEq/L (98-107) L 08/11/17 04:44 Carbon Dioxide 42 mEq/L (23-29) H* 08/11/17 04:44 BUN 29 mg/dL (8-23) H 08/11/17 04:44 Creatinine 1.27 mg/dL (0.60-1.20) H 08/11/17 04:44 Est GFR ( Amer) 49 (> 60) L 08/11/17 04:44 Est GFR (Non-Af Amer) 41 (> 60) L 08/11/17 04:44 Glucose 140 mg/dL (70-105) H 08/11/17 04:44 Folate > 22.3 ng/mL (3.0-16.0) H 08/07/17 03:05 TSH 29.467 mcIU/mL (0.340-5.600) H 08/05/17 16:50 Urine Clarity Cloudy (Clear) A 08/05/17 21:26 Urine Protein 100 mg/dL (Neg-Trace) H 08/05/17 21:26 Urine Bilirubin Small (Negative) H 08/05/17 21:26 Ur Leukocyte Esterase Small (Negative) H 08/05/17 21:26 Urine Microscopic WBC 5-15 per hpf (0-3) H 08/05/17 21:26 Ur Squamous Epith Cells Many per lpf (None-Few) H 08/05/17 21:26 Ur Renal Epithelial Cell Moderate per hpf (None-Few) H 08/05/17 21:26 Amorphous Sediment Moderate (Few) H 08/05/17 21:26 Ur Culture Indicated? NO. (NO) A 08/05/17 21:26 - Microbiology Findings Microbiology Findings: Microbiology, Last 48 Hours 08/06/17 03:40 Blood Culture - Final Peripheral Venipuncture No growth. - Clinical Findings Intake & Output: Intake & Output 08/10/17 08/11/17 08/11/17 23:59 07:59 15:59 Intake Total 270 / 270 0 / 0 Output Total 225 / 225 210 / 210 75 / 75 Balance 45 / 45 -210 / -210 -75 / -75 Weight 91.3 kg Consult Discharge Plan - Plan Referrals: Francisco Melgar Jr [Primary Care Provider] - - Attending Attestation I examined this patient and my medical decision-making was reviewed with the Resident Physician. I agree with the documented findings, disposition and treatment plan as described except to the extent set forth below. Patient seen and examined. Labs, radiology, chart personally reviewed. Agree with resident's history and physical, assessment, plan with following comments: INFORMATICS NURSE SPECIALIST: Patient follows commands, Pulmonary: Acceptable oxygenation and ventilation Cardiovascular: stable GI: Nutrition per dietary and GI prophylaxis per routine Heme: DVT prophylaxis per routine Renal; urine out put and renal funtion reviewed Endorcine: blood glucose is monitored. Transition to oral Levothyroxine. Stop to steroid. Lines: all lines checked and no evidence of infections Skin: skin care to prevent pressure ulcers per nursing routine care She is stable to to transfer to the floor. <Bonilla Bridges - Last Filed: 08/11/17 13:13> Date of Encounter: 08/11/17 Time of Encounter: 09:30 Assessment and Plan (1) Myxedema Current Visit: Yes Status: Acute Myxedema secondary to severe hypothyroidism, improved Patient has been admitted for severe hypothyroidism in the past requiring increased use of thyroxine On arrival the patient did have significant hypothermia, hypotension, anemia Her TSH on arrival was 29.47, free T3 2 0.53, free T4 1 0.64 Symptoms consistent with myxedema such as periocular and pretibial or edema, significant weakness, cardiomyopathy The patient received 300mcg IV levothyroxine in the ED Plan: -We will transition the patient to PO levothyroxine -Patient/ECF will need medication regimen clarification at the time of discharge -For LE edema, we will wrap legs The patient is stable for transfer to telemetry. I have spoken with and given sign-out to Dr. West, the admitting hospitalist, who accepts this patient. (2) Hypotension Current Visit: Yes Status: Acute Hypotension, likely secondary to cardiogenic shock Patient has myxedema due to severe hypothyroidism I suspect that this is the cause of the patient's acute exacerbation of CHF and hypotension The patient has been on Levophed which has increased her map Infectious etiology is unlikely, however we will monitor for signs of infection and consider antibiotics if necessary Plan: -Continue with thyroid regimen, consider intermediate school teacher medication if needed Qualifiers: Hypotension type: other hypotension type Qualified Code(s): I95.89 - Other hypotension (3) CHF (congestive heart failure), NYHA class I Current Visit: Yes Status: Acute Acute exacerbation of congestive heart failure secondary to severe hypothyroidism Chest x-ray does demonstrate moderate CHF and pulmonary vascular congestion Echocardiogram March 2017 does demonstrate an ejection fraction of 45%, diastolic dysfunction with moderate to severe mitral regurgitation The patient was hypotensive on admission and hypothermic We will continue pressors, and diuresis gently as the patient tolerates Plan: -Continue gentle diuesis as tolerated by BP, less aggressive -Wrap legs for edema Qualifiers: Congestive heart failure type: systolic Congestive heart failure chronicity : acute on chronic Qualified Code(s): I50.23 - Acute on chronic systolic ( congestive) heart failure (4) Acute blood loss anemia Current Visit: Yes Status: Acute Acute anemia, hemoglobin 6.7 on arrival Improved status post 2 units packed red blood cells Patients anemia is likely secondary to chronic blood loss and macrocytic anemia Macrocytosis may be secondary to dietary deficiency versus severe hypothyroidism Peripheral smear is consistent with acute blood loss anemia, vitamin B12 1072, folate greater than 22, MMA pending Gastroenterology is on board and considering EGD for acute blood Appears to be more stable now Plan: -Continue to monitor daily CBCs -Consult GI for EGD if necessary (5) Atrial fibrillation with slow ventricular response Current Visit: Yes Status: Acute Currently stable on levofed and home meds Patient is not a candidate for anticoagulation due to GI bleeding Continuous cardiac monitoring (6) Weakness Current Visit: Yes Status: Acute Likely secondary to myxedema plus symptomatically anemia We will work on treating the underlying causes to reduce weakness PT and OT consult when the patient can tolerate (7) COPD (chronic obstructive pulmonary disease) Current Visit: No Status: Chronic COPD without acute exacerbation We will give the patient scheduled duo nebs and as needed albuterol We will give the patient BiPAP overnight Although not in exacerbation, she continues to have significant wheezes We will start symbicort while in hospital in place of home inhalers Qualifiers: COPD type: chronic bronchitis Chronic bronchitis type: mucopurulent Qualified Code(s): J41.1 - Mucopurulent chronic bronchitis (8) H/O aortic valve replacement Current Visit: No Status: Chronic (9) DVT prophylaxis Current Visit: Yes Status: Chronic SCDs due to GI bleeding Subjective Principal diagnosis: CHF Interval history: The patient is resting comfortably in bed at time of examination. She has no acute complaints at this time. Objective PUL Vital signs: Last Vital Signs Temp 96.2 F L 08/11/17 04:00 Pulse 54 08/11/17 06:00 Resp 14 08/11/17 06:00 BP 104/62 08/11/17 06:00 Pulse Ox 100 08/11/17 06:00 Gen: Vitals noted. No acute distress. AAOx3 HEENT: Normocephalic, atraumatic. Periocular swelling improved and minimal redness present Neck: Supple. No adenopathy. Right IJ CVC in place with no obvious tissue abnormalities and surrounding tissue Cardiac: RRR, 3/6 systolic murmur heard best over aortic valve, +S1/S2 Pulmonary: Lungs primarily clear with only faint bibasilar crackles Abdomen: soft, nontender, BS noted, no guarding Back: Nontender throughout. MSK: ROM intact, no joint swelling noted Extremities: Trace edema, no apparent cyanosis Neuro: moves all extremities, no focal deficits Psych: Appropriate mood and behavior Results - Laboratory Findings CBC and BMP: 08/11/17 04:44 08/11/17 04:44 ABG ABG pH 7.34 pH Units (7.32-7.45) 08/07/17 04:14 ABG pCO2 77 mmHg (35-45) H* 08/07/17 04:14 ABG pO2 83 mmHg (85-104) L 08/07/17 04:14 ABG O2 Saturation 95 % (95-98) 08/07/17 04:14 PT/INR, D-dimer PT 10.8 Seconds (9.4-12.1) 08/05/17 16:50 Abnormal lab findings: Abnormal lab results WBC 3.3 K/mcL (4.3-11.1) L 08/11/17 04:44 RBC 2.72 M/mcL (3.82-4.97) L 08/11/17 04:44 Hgb 8.1 g/dL (11.5-15.4) L 08/11/17 04:44 Hct 27.1 % (35.3-44.9) L 08/11/17 04:44 MCHC 29.9 g/dL (31.6-35.5) L 08/11/17 04:44 RDW 17.7 % (11.5-14.5) H 08/11/17 04:44 Plt Count 41 K/mcL (140-400) L 08/11/17 04:44 Metamyelocytes % 1.0 % (0) H 08/06/17 04:00 Myelocytes % 3.0 % (0) H 08/06/17 04:00 Lymphocytes # 0.1 K/mcL (0.6-4.6) L 08/11/17 04:44 Nucleated RBCs/100 WBC 0.6 /100 WBC (0) H 08/08/17 08:50 Toxic Granulation Present (Not Present) A 08/06/17 11:20 Platelet Estimate Decreased (Normal) L 08/11/17 04:44 Immature Plt Fraction 6.2 % (1.1-6.1) H 08/11/17 04:44 Polychromasia 1+ (Not Present) A 08/06/17 11:20 Hypochromasia Present (Not Present) A 08/11/17 04:44 Basophilic Stippling 1+ (Not Present) A 08/06/17 11:20 Anisocytosis 1+ (Not Present) A 08/11/17 04:44 Macrocytosis Present (Not Present) A 08/11/17 04:44 ABG pCO2 77 mmHg (35-45) H* 08/07/17 04:14 ABG pO2 83 mmHg (85-104) L 08/07/17 04:14 ABG HCO3 41 mEq/L (21-27) H 08/07/17 04:14 ABG Total CO2 44 mEq/L (20-26) H 08/07/17 04:14 ABG Base Excess 13 mEq/L (-2 to 3) H 08/07/17 04:14 Chloride 95 mEq/L (98-107) L 08/11/17 04:44 Carbon Dioxide 42 mEq/L (23-29) H* 08/11/17 04:44 BUN 29 mg/dL (8-23) H 08/11/17 04:44 Creatinine 1.27 mg/dL (0.60-1.20) H 08/11/17 04:44 Est GFR ( Amer) 49 (> 60) L 08/11/17 04:44 Est GFR (Non-Af Amer) 41 (> 60) L 08/11/17 04:44 Glucose 140 mg/dL (70-105) H 08/11/17 04:44 Folate > 22.3 ng/mL (3.0-16.0) H 08/07/17 03:05 TSH 29.467 mcIU/mL (0.340-5.600) H 08/05/17 16:50 Urine Clarity Cloudy (Clear) A 08/05/17 21:26 Urine Protein 100 mg/dL (Neg-Trace) H 08/05/17 21:26 Urine Bilirubin Small (Negative) H 08/05/17 21:26 Ur Leukocyte Esterase Small (Negative) H 08/05/17 21:26 Urine Microscopic WBC 5-15 per hpf (0-3) H 08/05/17 21:26 Ur Squamous Epith Cells Many per lpf (None-Few) H 08/05/17 21:26 Ur Renal Epithelial Cell Moderate per hpf (None-Few) H 08/05/17 21:26 Amorphous Sediment Moderate (Few) H 08/05/17 21:26 Ur Culture Indicated? NO. (NO) A 08/05/17 21:26 - Clinical Findings Intake & Output: Intake & Output 08/10/17 08/10/17 08/11/17 15:59 23:59 07:59 Intake Total 36 / 36 270 / 270 0 / 0 Output Total 225 / 225 210 / 210 Balance 36 36 45 / 45 -210 / -210 Weight 91.3 kg - VTE Documentation of Mechanical Device: Intermittent pneumatic compression device
[2017-08-11] MEDS: Budesonide/Formoterol 80/4.5 MDI IH SCH ×2 (07:17→20:51)
[2017-08-11] MEDS: Folic Acid 1 MG TABLET PO SCH (08:38)
[2017-08-11] MEDS: *HR* Amiodarone 200 MG TABLET PO SCH (08:38)
[2017-08-11] MEDS: Sucralfate 1 GM TABLET PO SCH ×4 (08:38→21:27)
[2017-08-11] MEDS ORDERED: Naloxone 0.4 MG/ML INJ IVP PRN (19:20)
[2017-08-11] MEDS ORDERED: Norepinephrine 4 MG in D5% in Water 250 ML IVC SCH (19:20)
[2017-08-11] MEDS ORDERED: Ondansetron ODT 4 MG TAB.RAPDIS SL PRN (19:20)
[2017-08-11] MEDS: rOPINIRole 1 MG TABLET PO SCH (21:26)
[2017-08-11] MEDS: FLUoxetine 20 MG CAPSULE PO SCH (21:26)
[2017-08-12] MEDS: Ipratropium/Albuterol Neb 3 ML AER SCH ×5 (03:52→19:44)
[2017-08-12] MEDS: ALPRAZolam 0.5 MG TABLET PO SCH ×2 (04:38→23:00)
[2017-08-12] MEDS: Pantoprazole 40 MG VIAL IVP SCH ×2 (06:12→19:37)
[2017-08-12] MEDS: Budesonide/Formoterol 80/4.5 MDI IH SCH ×2 (08:27→19:44)
[2017-08-12] MEDS: Sucralfate 1 GM TABLET PO SCH ×4 (09:06→23:00)
[2017-08-12] MEDS: Folic Acid 1 MG TABLET PO SCH (09:06)
--- NOTE | 2017-08-12 09:08 | Internal Med Progress Note ---
<Segundo Alvarez - Last Filed: 08/12/17 10:38> Date of Encounter: 08/12/17 Time of Encounter: 09:08 - Assessment and plan (1) Myxedema Current Visit: Yes Status: Acute Assessment and plan: Patient received IV dose in ED due to TSH of 29.5. Patient has not been taking home medications. Likely myxedema and anemia as contributing factors for patients presenting symptoms. - restart home levo 150. - patient educated on the importance of taking medications. - if patient is stable overnight, will plan to d/c patient tomorrow. (2) GI bleed Current Visit: Yes Status: Acute Assessment and plan: Patient with angiectasia on 07/10/2017 EGD. Not currently on any anticoagulation. see above. 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 Patient no longer on anticoagulation or Plavix. Patient received 2 units of prbc and hgb has remained relatively stable around 7.8-8.1. Will continue to monitor. - continue carafate, PPI - Hgb in AM (4) Chronic kidney disease, stage 3 Current Visit: Yes Status: Chronic Assessment and plan: avoid nephrotoxic agents. (5) Hypothermia Current Visit: Yes Status: Acute Assessment and plan: resolved as of right now. Qualifiers: Encounter type: initial encounter Qualified Code(s): T68.XXXA - Hypothermia , initial encounter (6) Shock Current Visit: Yes Status: Acute Assessment and plan: resolved as of right now. Patient was transferred from ICU. On admission patient was hypotensive, anemic, and hypothermic. Patient was treated for GI bleed, prbc replenished. (7) Pancytopenia Current Visit: Yes Status: Acute Assessment and plan: Chronic pancytopenia. -Patient follows with heme/onc as an outpatient. (8) Atrial fibrillation with slow ventricular response Current Visit: Yes Status: Acute Assessment and plan: Patient with AICD in place. -Hold BB for now. (9) Metabolic alkalosis Current Visit: Yes Status: Acute Assessment and plan: most likely resolved. Patient has known chornic hx of COPD (10) Congestive heart failure (CHF) Current Visit: Yes Status: Acute Assessment and plan: Echocardiogram in 04/03/2017 shows LVEF of 45%, mild global LV systolic dysfunction, atypical septal motion consistent with postop status, mildly dilated LV, diastolic dysfunction, dilated RV with normal function, severe biatrial enlargement, s/p mechanical aortic valve, mild tricuspid regurgitation , and mild pulmonary hypertension. Qualifiers: Heart failure type: combined systolic and diastolic Heart failure chronicity: chronic Qualified Code(s): I50.42 - 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 - Subjective Interval history: Ms Higginbotham is a 77 yo F who presented with swelling, tiredness, general weakness, "flu", "Bacterial infection", "pna" found to be in myxedema was transferred out of ICU yesterday. Patient states that her main complaint is her swelling but that has gone down quite a bit but she remains swollen all over. Patient states her general weakness and tiredness has resolved, but also has not been up and moving around. Patient normally is on 4 L at home but she states she has been alright on 2L of O2 that she's on right now. Patient denies CP, SOB, nausea, vomiting. per chart review, patient had "flu" treated earlier this month. - Constitutional Vitals: Temp Pulse Resp BP Pulse Ox 97.5 F L 58 17 94/43 90 08/12/17 06:52 08/12/17 06:52 08/12/17 08:29 08/12/17 06:52 08/12/17 08:29 General appearance: Present: cooperative, A&O X 3, pleasant, no acute distress - Head Head exam: Present: atraumatic, normocephalic - Eye Eye exam: Present: PERRL, conjuntiva pink, sclera anicteric Pupils: Present: PERRL - Neck Neck exam general surgery: Present: supple, trachea midline. Absent: lymphadenopathy - Respiratory Respiratory exam: Present: prolonged expiratory phase. Absent: accessory muscle use, rales, rhonchi, wheezes - Cardiovascular Cardiovascular exam: Present: RRR, +S1, +S2. Absent: diastolic murmur, gallop, rubs, systolic murmur - GI/Abdominal GI/Abdominal exam: Present: normal bowel sounds, soft, no peritoneal signs. Absent: distended, tenderness - Extremities Exam Extremities exam: Present: pedal edema (2+ BUE + BLE), warm, radial pulses palpable and symmetrical. Absent: calf tenderness, cyanotic - Neurological Exam Neurological exam: Present: CN II-XII intact, oriented X3, no focal deficits. Absent: pronater drift, facial droop, speech deficit - Skin Skin exam: Present: dry, intact Internal Medicine: Result - Labs CBC & Chem 7: 08/11/17 04:44 08/11/17 04:44 - ABG Interpretation ABG results: ABG ABG pH 7.34 pH Units (7.32-7.45) 08/07/17 04:14 ABG pCO2 77 mmHg (35-45) H* 08/07/17 04:14 ABG pO2 83 mmHg (85-104) L 08/07/17 04:14 ABG O2 Saturation 95 % (95-98) 08/07/17 04:14 PT/INR, D-dimer PT 10.8 Seconds (9.4-12.1) 08/05/17 16:50 - VTE Documentation of Mechanical Device: Intermittent pneumatic compression device Consult Discharge Plan - Plan Referrals: Francisco Melgar Jr [Primary Care Provider] - <Rickey Webb H - Last Filed: 08/12/17 14:28> Date of Encounter: 08/12/17 - Assessment and plan (1) Acute blood loss anemia Current Visit: Yes Status: Acute (2) GI bleed Current Visit: Yes Status: Acute Qualifiers: GI bleed type/associated pathology: unspecified gastrointestinal hemorrhage type Qualified Code(s): K92.2 - Gastrointestinal hemorrhage, unspecified (3) Chronic kidney disease, stage 3 Current Visit: Yes Status: Chronic (4) Hypothermia Current Visit: Yes Status: Acute Qualifiers: Encounter type: initial encounter Qualified Code(s): T68.XXXA - Hypothermia , initial encounter (5) Shock Current Visit: Yes Status: Acute (6) Myxedema Current Visit: Yes Status: Acute (7) Pancytopenia Current Visit: Yes Status: Acute (8) Atrial fibrillation with slow ventricular response Current Visit: Yes Status: Acute (9) Metabolic alkalosis Current Visit: Yes Status: Acute (10) Congestive heart failure (CHF) Current Visit: Yes Status: Acute Qualifiers: Heart failure type: combined systolic and diastolic Heart failure chronicity: chronic Qualified Code(s): I50.42 - 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 - Constitutional Vitals: Temp Pulse Resp BP Pulse Ox 97.5 F L 58 17 94/43 90 08/12/17 06:52 08/12/17 06:52 08/12/17 08:29 08/12/17 06:52 08/12/17 08:29 Internal Medicine: Result - Labs CBC & Chem 7: 08/11/17 04:44 08/11/17 04:44 - ABG Interpretation ABG results: ABG ABG pH 7.34 pH Units (7.32-7.45) 08/07/17 04:14 ABG pCO2 77 mmHg (35-45) H* 08/07/17 04:14 ABG pO2 83 mmHg (85-104) L 08/07/17 04:14 ABG O2 Saturation 95 % (95-98) 08/07/17 04:14 PT/INR, D-dimer PT 10.8 Seconds (9.4-12.1) 08/05/17 16:50 - Attending Attestation severe myxedema due to severe hypothyroidism with cardiogenic shock continue levothyroxine acute systolic CHF exacerbation start Bumex IV I examined this patient and my medical decision-making was reviewed with the Resident Physician. I agree with the documented findings, disposition and treatment plan as described except to the extent set forth below.
[2017-08-12] MEDS: *HR* Amiodarone 200 MG TABLET PO SCH (09:10)
[2017-08-12] MEDS: Bumetanide 1 MG/4 ML VIAL IVP SCH (16:20)
[2017-08-12] MEDS: rOPINIRole 1 MG TABLET PO SCH (22:59)
[2017-08-12] MEDS: FLUoxetine 20 MG CAPSULE PO SCH (23:00)
[2017-08-13] MEDS: Ipratropium/Albuterol Neb 3 ML AER SCH ×7 (00:19→23:21)
[2017-08-13 06:32] LABS: Hemoglobin 7.1 g/dL (11.5-15.4); Immature Granulocytes % 0.8 % (0-4); Mean Corpuscular Hemoglobin 29.6 pg (28.0-33.3)
[2017-08-13 06:34] LABS: Eosinophils # 0.1 K/mcL (0.0-0.6); Eosinophils % 1.5 %; Hematocrit 23.8 % (35.3-44.9); Immature Platelets 6.8 % (1.1-6.1); Lymphocytes # 0.4 K/mcL (0.6-4.6); Lymphocytes % 10.4 %; Mean Corpuscular HGB Conc 29.8 g/dL (31.6-35.5); Mean Corpuscular Volume 99.2 fL (83.0-100.0); Mean Platelet Volume 11.9 fL (9.4-12.4); Monocytes # 0.3 K/mcL (0.0-1.3); Monocytes % 8.3 %; Red Cell Distribution Width 17.7 % (11.5-14.5)
[2017-08-13] MEDS: Pantoprazole 40 MG VIAL IVP SCH (06:49)
[2017-08-13 06:55] LABS: Neutrophils # 3.2 K/mcL (1.6-8.9); Platelet Count 41 K/mcL (140-400)
[2017-08-13 06:58] LABS: Albumin 2.7 g/dL (3.5-5.7); Albumin/Globulin Ratio 1.3 (1.1-2.2); Bilirubin,Total 0.6 mg/dL (0.3-1.0); Calcium 9.3 mg/dL (8.6-10.3); Globulin 2.1 g/dL (2.4-3.5); Potassium 3.7 mEq/L (3.5-5.1); Total Protein 4.8 g/dL (6.4-8.9)
[2017-08-13] MEDS: Budesonide/Formoterol 80/4.5 MDI IH SCH ×2 (07:31→20:15)
--- NOTE | 2017-08-13 08:44 | Discharge Summary ---
<Segundo Alvarez - Last Filed: 08/13/17 11:54> Orders not resulted at time of discharge: Pending orders 08/13/17 08:39 HH [Hemoglobin and Hematocrit] [HEME] Routine 08/14/17 04:00 CBC [Complete Blood Count] [HEME] AM 0400 CMP [Comprehensive Metabolic Panel] AM 0400 08/15/17 04:00 CBC [Complete Blood Count] [HEME] AM 0400 CMP [Comprehensive Metabolic Panel] AM 04008/16/17 04:00 CBC [Complete Blood Count] [HEME] AM 0400 CMP [Comprehensive Metabolic Panel] AM 0400 08/17/17 04:00 CBC [Complete Blood Count] [HEME] AM 0400 CMP [Comprehensive Metabolic Panel] AM 04008/18/17 04:00 CBC [Complete Blood Count] [HEME] AM 0400 CMP [Comprehensive Metabolic Panel] AM 040 Date of Encounter: 08/13/17 Time of Encounter: 08:44 - Discharge Diagnosis (1) Myxedema Priority: Primary Status: Acute (2) GI bleed Priority: Secondary Status: Acute Qualifiers: GI bleed type/associated pathology: unspecified gastrointestinal hemorrhage type Qualified Code(s): K92.2 - Gastrointestinal hemorrhage, unspecified (3) Acute blood loss anemia Priority: Secondary Status: Acute (4) Chronic kidney disease, stage 3 Priority: Secondary Status: Chronic (5) Hypothermia Priority: Secondary Status: Acute Qualifiers: Encounter type: initial encounter Qualified Code(s): T68.XXXA - Hypothermia , initial encounter (6) Shock Priority: Secondary Status: Acute (7) Pancytopenia Priority: Secondary Status: Acute (8) Atrial fibrillation with slow ventricular response Priority: Secondary Status: Acute (9) Metabolic alkalosis Priority: Secondary Status: Acute (10) Congestive heart failure (CHF) Priority: Secondary Status: Acute Qualifiers: Heart failure type: combined systolic and diastolic Heart failure chronicity: chronic Qualified Code(s): I50.42 - Chronic combined systolic ( congestive) and diastolic (congestive) heart failure Hospital course: Ms. Higginbotham is a 77 year old female presented was fatigued and swollen all over sent from GI office after determined to be symptomatic anemia. In the ED, patient was found to be hypothermic temp 92F and hypotensive. Her TSH was markedly elevated at 29.47 and she was given a dose of IV thyroxine and one- time dose of steroids although it was noted she was not actually in myxedema coma as she was alert, oriented and responsive. Patient was started on IV fluid resuscitation and ordered 2 units of PRBCs to be transfused due to hgb of 6.7. A bear hugger was also placed in addition to a right IJ central line. The ED spoke with Dr. Zelaya who recommended admission to the hospital for likely endoscopy and colonoscopy. Pulmonlogy was consulted due to hypotension, RIJ, and levophed started. Patient was then transferred to ICU. Stress dose of steroids were given, an then patients home levo 150 was started, patient reported non-compliance in the last few weeks. Patient was determined to be in cardiogenic shock due to acute exacerbation of CHF which itself was caused by myxedema. Further work up included Peripheral smear consistent with acute blood loss anemia, vitamin B12 1072, folate greater than 22, MMA 0.30. 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 Patient was on Protonix and Carafate during hospitalization. Patient will be discharged with continuation of home PPI and carafate. Patient on last day of admission hgb was 7.6 and stable. Due to high risk, gave 1 unit of prbc prior to d/c. PT/OT recommended skilled facility. Patient to have follow up with PCP, and GI. Discharge discussed with: patient Time spent discussing smoking cessation with patient: more than 10 minutes - Time Spent with Patient Total time spent providing and/or coordinating discharge services: 40 minutes Greater than 30 minutes - Discharge Medications Prescriptions: ALPRAZolam [Xanax 0.25 MG Tablet] 0.25 mg PO HS 5 Days #5 tablet Bumetanide [Bumex] 0.5 mg PO BIDDIURETIC #60 tablet Potassium Chloride [Klor-Con Sprinkle] 10 meq PO DAILY #30 capsule.er Home Medications: Allopurinol [Zyloprim 300 MG] 300 mg PO DAILY 01/12/16 [History] Calcium Carbonate [Calcium] 1,500 mg PO BID 04/22/16 [History] Oxygen 4 l NS AD 04/22/16 [History] Folic Acid 1 mg PO DAILY 05/28/16 [History] Ranitidine HCl [Acid Roustabout Supervisor] 150 mg PO BID 07/12/16 [History] Albuterol Sulfate [Ventolin Hfa] 1 - 2 puff IH Q4-6H PRN 10/14/16 [History] Umeclidinium [place] [Incruse Ellipta] 1 puff IH QPM 10/14/16 [History] Sacubitril/Valsartan 24/26 mg [Entresto 24 mg-26 mg Tablet] 1 tab PO BID [History] Fluticasone/Vilanterol [Breo Ellipta 200-25 Mcg INH] 1 each IH BID 06/16/17 [ History] Ondansetron ODT [Zofran ODT] 4 mg SL Q8H PRN 06/16/17 [History] Amiodarone [Cordarone] 200 mg PO DAILY #0 06/19/17 [Rx] FLUoxetine HCl [Prozac] 20 mg PO HS 07/08/17 [History] Ferrous Gluconate 324 mg PO 1200 07/08/17 [History] Ropinirole HCl [Requip] 4 mg PO HS 07/09/17 [History] Omeprazole [PriLOSEC] 40 mg PO BID capsule. 07/11/17 [Rx] Sucralfate [Carafate] 1 gm PO QIDAC tablet 07/11/17 [Rx] Levothyroxine [Synthroid] 150 mcg PO DAILY@0630 tablet 07/28/17 [Rx] ALPRAZolam [Xanax 0.25 MG Tablet] 0.25 mg PO HS 5 Days #5 tablet 08/13/17 [Rx] Bumetanide [Bumex] 0.5 mg PO BIDDIURETIC #60 tablet 08/13/17 [Rx] Potassium Chloride [Klor-Con Sprinkle] 10 meq PO DAILY #30 capsule.er 08/13/17 [ Rx] Allergies/Adverse Reactions: 3 Allergy/AdvReac Type Severity Reaction Status Date / Time Penicillins Allergy Hives Verified 08/05/17 14:15 Sulfa (Sulfonamide Allergy Hives Verified 08/05/17 14:15 Antibiotics) gabapentin AdvReac Hallucinati Verified 08/05/17 14:15 ng Oxycodone [From Percocet] AdvReac Hallucinati Verified 08/05/17 14:15 ng Date of admission: 08/05/17 20:58 Primary care physician: Francisco Melgar Jr Consults: 08/05/17 23:06 Consult to Documentum Consultant [CONS] Routine Reason for SW Consult: patient is from [facility]. 08/06/17 01:43 Consult to Critical Care [CONS] Routine Consulting Provider: [facility] [place] Reason for Consult: Shock Call Completed: No 08/12/17 09:15 Consult to Occupational Therapy [CONS] Routine Comment: Evaluate, develop and implement POC Reason for Consult: assess mobility Does patient have active BEDREST order?: No Is patient medically & hemodynamically stable?: Yes Patient assessed for mobility or mobilized this visit?: Yes Consult to Physical Therapy [CONS] Routine Comment: Evaluate, develop and implement POC Reason for Consult: assess patient mobility Does patient have active BEDREST order?: No Is patient medically & hemodynamically stable?: Yes Patient assessed for mobility or mobilized this visit?: Yes 08/12/17 09:59 Consult to Nurse Navigator [CONS] Routine Comment: CHF, NYHA class 1 Discharging clinician: Segundo Alvarez Anticipated date of discharge: 08/13/17 - Constitutional Vitals: Temp Pulse Resp BP Pulse Ox 97.5 F L 61 20 91/53 100 08/13/17 07:47 08/13/17 07:47 08/13/17 07:47 08/13/17 07:47 08/13/17 07:47 General appearance: Present: cooperative, A&O X 3, pleasant, no acute distress - Head Head exam: Present: atraumatic, normocephalic - Eye Eye exam: Present: PERRL, conjuntiva pink, sclera anicteric Pupils: Present: PERRL Additional comments: patient has tattoo'ed eyeliner - ENT ENT exam: Present: mucous membranes moist, normal oropharynx - Neck Neck exam general surgery: Present: supple, trachea midline. Absent: lymphadenopathy - Respiratory Respiratory exam: Present: CTAB, prolonged expiratory phase. Absent: accessory muscle use, rales, rhonchi, wheezes - Cardiovascular Cardiovascular exam: Present: RRR - GI/Abdominal GI/Abdominal exam: Present: normal bowel sounds, soft, no peritoneal signs. Absent: distended, tenderness - Extremities Exam Extremities exam: Present: pedal edema (2 pitting edema BLE), warm, radial pulses palpable and symmetrical. Absent: calf tenderness, cyanotic - Neurological Exam Neurological exam: Present: alert, oriented X3, strengths equal and symetr throughout. Absent: altered, motor sensory deficit - Psychiatric Psychiatric exam: Present: normal affect, normal mood - Patient Status Disposition: Transfer SNF Condition: Serious Overall status at discharge: patient is progressing back to baseline - Discharge Instructions Follow Up With: Charly Zelaya MD [Partnered Physician] - (had to send a web request office should contact patient with appointment date and time) Francisco Melgar Jr [Primary Care Provider] - - Diet and Activity Activity: as per physical therapy - VTE Documentation of Mechanical Device: Intermittent pneumatic compression device <Rickey Webb - Last Filed: 08/13/17 13:21> Orders not resulted at time of discharge: Pending orders 08/13/17 12:48 Red Blood Cells [BBK] Routine Type and Screen [BBK] Routine 08/14/17 04:00 CBC [Complete Blood Count] [HEME] AM 0400 CMP [Comprehensive Metabolic Panel] AM 0400 08/15/17 04:00 CBC [Complete Blood Count] [HEME] AM 0400 CMP [Comprehensive Metabolic Panel] AM 0400 08/16/17 04:00 CBC [Complete Blood Count] [HEME] AM 0400 CMP [Comprehensive Metabolic Panel] AM 0400 08/17/17 04:00 CBC [Complete Blood Count] [HEME] AM 0400 CMP [Comprehensive Metabolic Panel] AM 0400 08/18/17 04:00 CBC [Complete Blood Count] [HEME] AM 0400 CMP [Comprehensive Metabolic Panel] AM 0400 Date of Encounter: 08/13/17 - Discharge Diagnosis (1) Acute blood loss anemia Status: Acute (2) GI bleed Status: Acute Qualifiers: GI bleed type/associated pathology: unspecified gastrointestinal hemorrhage type Qualified Code(s): K92.2 - Gastrointestinal hemorrhage, unspecified (3) Chronic kidney disease, stage 3 Status: Chronic (4) Hypothermia Status: Acute Qualifiers: Encounter type: initial encounter Qualified Code(s): T68.XXXA - Hypothermia , initial encounter (5) Shock Status: Acute (6) Myxedema Status: Acute (7) Pancytopenia Status: Acute (8) Atrial fibrillation with slow ventricular response Status: Acute (9) Metabolic alkalosis Status: Acute (10) Congestive heart failure (CHF) Status: Acute Qualifiers: Heart failure type: combined systolic and diastolic Heart failure chronicity: chronic Qualified Code(s): I50.42 - Chronic combined systolic ( congestive) and diastolic (congestive) heart failure Hospital course: Ms. Higginbotham is a 77 year old female - Time Spent with Patient Total time spent providing and/or coordinating discharge services: Date of admission: 08/05/17 20:58 Primary care physician: Francisco Melgar Jr Consults: 08/05/17 23:06 Consult to Documentum Consultant [CONS] Routine Reason for SW Consult: patient is from [facility]. 08/06/17 01:43 Consult to Critical Care [CONS] Routine Consulting Provider: [facility] [place] Reason for Consult: Shock Call Completed: No 08/12/17 09:15 Consult to Occupational Therapy [CONS] Routine Comment: Evaluate, develop and implement POC Reason for Consult: assess mobility Does patient have active BEDREST order?: No Is patient medically & hemodynamically stable?: Yes Patient assessed for mobility or mobilized this visit?: Yes Consult to Physical Therapy [CONS] Routine Comment: Evaluate, develop and implement POC Reason for Consult: assess patient mobility Does patient have active BEDREST order?: No Is patient medically & hemodynamically stable?: Yes Patient assessed for mobility or mobilized this visit?: Yes 08/12/17 09:59 Consult to Nurse Navigator [CONS] Routine Comment: CHF, NYHA class 1 - Constitutional Vitals: Temp Pulse Resp BP Pulse Ox 97.4 F L 64 20 93/57 100 08/13/17 12:17 08/13/17 12:17 08/13/17 12:17 08/13/17 12:17 08/13/17 12:17 - Attending Attestation severe myxedema due to severe hypothyroidism with cardiogenic shock continue levothyroxine, recheck TSH in 6 weeks acute systolic CHF exacerbation , ejection fraction of 45% continue Bumex Time spent 40 minutes I examined this patient and my medical decision-making was reviewed with the Resident Physician. I agree with the documented findings, disposition and treatment plan as described except to the extent set forth below.
[2017-08-13] MEDS: *HR* Amiodarone 200 MG TABLET PO SCH (09:14)
[2017-08-13] MEDS: Sucralfate 1 GM TABLET PO SCH ×4 (09:14→21:18)
[2017-08-13] MEDS: Folic Acid 1 MG TABLET PO SCH (09:14)
[2017-08-13] MEDS: Bumetanide 1 MG/4 ML VIAL IVP SCH (09:14)
[2017-08-13 11:33] LABS: Hematocrit 25.2 % (35.3-44.9); Hemoglobin 7.6 g/dL (11.5-15.4)
--- NOTE | 2017-08-13 11:54 | Physician Discharge Referral ---
<Yogesh Alvarezson - Last Filed: 08/13/17 11:52> [facility] Referral Info Provider in Charge after Transfer: PCP Institutional Level of Care: Skilled - Diagnosis (1) Myxedema Priority: Primary Status: Acute (2) GI bleed Priority: Secondary Status: Acute (3) Acute blood loss anemia Priority: Secondary Status: Acute (4) Chronic kidney disease, stage 3 Priority: Secondary Status: Chronic (5) Hypothermia Priority: Secondary Status: Acute (6) Shock Priority: Secondary Status: Acute (7) Pancytopenia Priority: Secondary Status: Acute (8) Atrial fibrillation with slow ventricular response Priority: Secondary Status: Acute (9) Metabolic alkalosis Priority: Secondary Status: Acute (10) Congestive heart failure (CHF) Priority: Secondary Status: Acute - Transfer Medications Prescriptions: ALPRAZolam [Xanax 0.25 MG Tablet] 0.25 mg PO HS 5 Days #5 tablet Bumetanide [Bumex] 0.5 mg PO BIDDIURETIC #60 tablet Potassium Chloride [Klor-Con Sprinkle] 10 meq PO DAILY #30 capsule.er Home Medications: Allopurinol [Zyloprim 300 MG] 300 mg PO DAILY 01/12/16 [History] Calcium Carbonate [Calcium] 1,500 mg PO BID 04/22/16 [History] Oxygen 4 l NS AD 04/22/16 [History] Folic Acid 1 mg PO DAILY 05/28/16 [History] Ranitidine HCl [Acid Steam Gigger] 150 mg PO BID 07/12/16 [History] Albuterol Sulfate [Ventolin Hfa] 1 - 2 puff IH Q4-6H PRN 10/14/16 [History] Umeclidinium [place] [Incruse Ellipta] 1 puff IH QPM 10/14/16 [History] Sacubitril/Valsartan 24/26 mg [Entresto 24 mg-26 mg Tablet] 1 tab PO BID [History] Fluticasone/Vilanterol [Breo Ellipta 200-25 Mcg INH] 1 each IH BID 06/16/17 [ History] Ondansetron ODT [Zofran ODT] 4 mg SL Q8H PRN 06/16/17 [History] Amiodarone [Cordarone] 200 mg PO DAILY #0 06/19/17 [Rx] FLUoxetine HCl [Prozac] 20 mg PO HS 07/08/17 [History] Ferrous Gluconate 324 mg PO 1200 07/08/17 [History] Ropinirole HCl [Requip] 4 mg PO HS 07/09/17 [History] Omeprazole [PriLOSEC] 40 mg PO BID capsule. 07/11/17 [Rx] Sucralfate [Carafate] 1 gm PO QIDAC tablet 07/11/17 [Rx] Levothyroxine [Synthroid] 150 mcg PO DAILY@0630 tablet 07/28/17 [Rx] ALPRAZolam [Xanax 0.25 MG Tablet] 0.25 mg PO HS 5 Days #5 tablet 08/13/17 [Rx] Bumetanide [Bumex] 0.5 mg PO BIDDIURETIC #60 tablet 08/13/17 [Rx] Potassium Chloride [Klor-Con Sprinkle] 10 meq PO DAILY #30 capsule.er 08/13/17 [ Rx] Allergies/Adverse Reactions: 3 Allergy/AdvReac Type Severity Reaction Status Date / Time Penicillins Allergy Hives Verified 08/05/17 14:15 Sulfa (Sulfonamide Allergy Hives Verified 08/05/17 14:15 Antibiotics) gabapentin AdvReac Hallucinati Verified 08/05/17 14:15 ng Oxycodone [From Percocet] AdvReac Hallucinati Verified 08/05/17 14:15 ng - Respiratory Orders Smoking Cessation: Smoking cessation has been advised. For more information, call the [place] Tobacco Quit Line at 5-174-BFTY-NOW. - Rehabiliation Orders Rehab Orders: Evaluation for Physical Therapy, Evaluation for Occupational Therapy CERTIFICATION: I certify that the transfer of the above named patient to an Extended Care Facility is necessary for the continuing treatment of the diagnosis listed. The above information is true and accurate reflection of patient's current condition. Confidential - Redisclosure prohibited without a patient's written consent. <Rickey Webb - Last Filed: 08/13/17 13:47> - Diagnosis (1) Acute blood loss anemia Status: Acute (2) GI bleed Status: Acute (3) Chronic kidney disease, stage 3 Status: Chronic (4) Hypothermia Status: Acute (5) Shock Status: Acute (6) Myxedema Status: Acute (7) Pancytopenia Status: Acute (8) Atrial fibrillation with slow ventricular response Status: Acute (9) Metabolic alkalosis Status: Acute (10) Congestive heart failure (CHF) Status: Acute - Respiratory Orders Smoking Cessation: Smoking cessation has been advised. For more information, call the [place] Tobacco Quit Line at 2-738-JGOQ-NOW. CERTIFICATION: I certify that the transfer of the above named patient to an Extended Care Facility is necessary for the continuing treatment of the diagnosis listed. The above information is true and accurate reflection of patient's current condition. Confidential - Redisclosure prohibited without a patient's written consent.
[2017-08-13] MEDS ORDERED: 0.9 % Sodium Chloride 250 ML ONE (12:04)
[2017-08-13] MEDS: rOPINIRole 1 MG TABLET PO SCH (21:18)
[2017-08-13] MEDS: FLUoxetine 20 MG CAPSULE PO SCH (21:19)
--- NOTE | 2017-08-13 23:55 | Event Note ---
Date of Encounter: 08/13/17 Time of Encounter: 20:55 Alerted by pts. nurse that pt. was altered and speaking to imaginary person in room. Went to assess pt. who was A&O x3 but having visual hallucinations. Pts. IV site also draining copious amounts of yellow fluid. Nurse instructed to remove IV and monitor. Copious amount of serosanguineous drainage following removal. Nurse also reports pt. had black, tarry stool. Nurse instructed to call [facility] and inform them that discharge would tentatively be tomorrow following assessment of pt. Nurse instructed to monitor pt. closely overnight.
[2017-08-14] MEDS: ALPRAZolam 0.5 MG TABLET PO SCH ×2 (01:02→22:35)
[2017-08-14] MEDS: Ipratropium/Albuterol Neb 3 ML AER SCH ×5 (03:06→20:35)
[2017-08-14 05:11] LABS: Basophils % 0.2 %; Nucleated Red Blood Cells 0.4 /100 WBC (0); Red Cell Distribution Width 17.2 % (11.5-14.5)
[2017-08-14 05:13] LABS: Eosinophils # 0.1 K/mcL (0.0-0.6); Eosinophils % 1.3 %; Hematocrit 27.4 % (35.3-44.9); Hemoglobin 8.6 g/dL (11.5-15.4); Immature Granulocytes % 4.6 % (0-4); Immature Platelets 8.4 % (1.1-6.1); Lymphocytes # 0.5 K/mcL (0.6-4.6); Lymphocytes % 8.7 %; Mean Corpuscular HGB Conc 31.4 g/dL (31.6-35.5); Mean Corpuscular Hemoglobin 30.2 pg (28.0-33.3); Mean Corpuscular Volume 96.1 fL (83.0-100.0); Mean Platelet Volume 12.4 fL (9.4-12.4); Monocytes # 0.5 K/mcL (0.0-1.3); Monocytes % 9.4 %; Neutrophils # 4.1 K/mcL (1.6-8.9); Red Blood Count 2.85 M/mcL (3.82-4.97); Segmented Neutrophils % 75.8 %
[2017-08-14 05:21] LABS: Platelet Count 47 K/mcL (140-400)
[2017-08-14 05:36] LABS: Albumin 2.9 g/dL (3.5-5.7); Albumin/Globulin Ratio 1.2 (1.1-2.2); Calcium 9.3 mg/dL (8.6-10.3); Globulin 2.5 g/dL (2.4-3.5); Potassium 4.1 mEq/L (3.5-5.1); Total Protein 5.4 g/dL (6.4-8.9)
[2017-08-14] MEDS: Budesonide/Formoterol 80/4.5 MDI IH SCH ×2 (07:31→20:35)
[2017-08-14] MEDS: *HR* Amiodarone 200 MG TABLET PO SCH (08:53)
[2017-08-14] MEDS: Sucralfate 1 GM TABLET PO SCH ×4 (08:53→22:35)
[2017-08-14] MEDS: Folic Acid 1 MG TABLET PO SCH (08:54)
--- NOTE | 2017-08-14 09:25 | Internal Med Progress Note ---
<Segundo Alvarez - Last Filed: 08/14/17 09:22> Date of Encounter: 08/14/17 Time of Encounter: 09:22 - Assessment and plan (1) GI bleed Current Visit: Yes Status: Acute Assessment and plan: Patient with angiectasia on 07/10/2017 EGD. Not currently on any anticoagulation. Was planning on D/C yesterday after receiving 1 unit of prbc, currently hgb is stable but patient had tarry stools yesterday and was hallucinating - consulted GI, appreciate their recommendations Qualifiers: GI bleed type/associated pathology: unspecified gastrointestinal hemorrhage type Qualified Code(s): K92.2 - Gastrointestinal hemorrhage, unspecified (2) Myxedema Current Visit: Yes Status: Acute Assessment and plan: Patient received IV dose in ED due to TSH of 29.5. Patient has not been taking home medications. Likely myxedema and anemia as contributing factors for patients presenting symptoms. At this point, resolved. - continue home levo 150. - patient educated on the importance of taking medications. 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 Patient no longer on anticoagulation or Plavix. Patient received 2 units of prbc and hgb has remained relatively stable around 7.8-8.1. Received another unit yesterday and hgb is 8.6 today. - continue carafate, PPI (4) Chronic kidney disease, stage 3 Current Visit: Yes Status: Chronic Assessment and plan: avoid nephrotoxic agents. (5) Hypothermia Current Visit: Yes Status: Acute Assessment and plan: resolved as of right now. Qualifiers: Encounter type: initial encounter Qualified Code(s): T68.XXXA - Hypothermia , initial encounter (6) Shock Current Visit: Yes Status: Acute Assessment and plan: resolved as of right now. Patient was transferred from ICU. On admission patient was hypotensive, anemic, and hypothermic. Patient was treated for GI bleed, prbc replenished. (7) Pancytopenia Current Visit: Yes Status: Acute Assessment and plan: Chronic pancytopenia. -Patient follows with heme/onc as an outpatient. (8) Atrial fibrillation with slow ventricular response Current Visit: Yes Status: Acute Assessment and plan: Patient with AICD in place. -Hold BB for now. (9) Metabolic alkalosis Current Visit: Yes Status: Acute Assessment and plan: most likely resolved. Patient has known chornic hx of COPD (10) Congestive heart failure (CHF) Current Visit: Yes Status: Acute Assessment and plan: Echocardiogram in 04/03/2017 shows LVEF of 45%, mild global LV systolic dysfunction, atypical septal motion consistent with postop status, mildly dilated LV, diastolic dysfunction, dilated RV with normal function, severe biatrial enlargement, s/p mechanical aortic valve, mild tricuspid regurgitation , and mild pulmonary hypertension. 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 - Time Spent With Patient Total time spent is greater than 50% in coordination of care (as documented) at patient's floor/unit and/or counseling patient: - Subjective Interval history: Ms Higginbotham was planned for discharge yesterday, but per nurses note patient started hallucinating and had bloody-tarry stools yesterday afternoon. As well , she had yellow pus coming from her IV site. Patient denies hallucinating today, and she does admit to having blood in her stools yesterday. Patient states she feels good today with no new complaints. Patient denies chest pain, SOB, nausea, vomiting, diarrhea. - Constitutional Vitals: Temp Pulse Resp BP Pulse Ox 97.7 F 60 18 119/67 98 08/14/17 06:54 08/14/17 06:54 08/14/17 07:33 08/14/17 06:54 08/14/17 07:33 General appearance: Present: cooperative, A&O X 3, morbidly obese, pleasant, no acute distress - Head Head exam: Present: atraumatic, normocephalic - Eye Eye exam: Present: PERRL, conjuntiva pink, sclera anicteric Pupils: Present: PERRL - Neck Neck exam general surgery: Present: supple, trachea midline. Absent: lymphadenopathy - Respiratory Respiratory exam: Present: CTAB, prolonged expiratory phase. Absent: accessory muscle use, rales, rhonchi, wheezes - Cardiovascular Cardiovascular exam: Present: RRR, systolic murmur (3/6 2nd IC bilaterally) - GI/Abdominal GI/Abdominal exam: Present: normal bowel sounds, soft, no peritoneal signs. Absent: distended, tenderness - Extremities Exam Extremities exam: Present: warm, radial pulses palpable and symmetrical. Absent : calf tenderness, cyanotic, pedal edema - Neurological Exam Neurological exam: Present: CN II-XII intact, oriented X3, no focal deficits. Absent: pronater drift, facial droop, speech deficit - Psychiatric Psychiatric exam: Present: normal affect, normal mood Internal Medicine: Result - Labs CBC & Chem 7: 08/14/17 04:50 08/14/17 04:50 Labs: Short CBC 08/13/17 08/14/17 Range/Units 11:19 04:50 WBC 5.4 (4.3-11.1) K/mcL Hgb 7.6 L 8.6 L (11.5-15.4) g/dL Hct 25.2 L 27.4 L (35.3-44.9) % Plt Count 47 L (140-400) K/mcL Neutrophils # 4.1 (1.6-8.9) K/mcL BMP 08/14/17 04:50 Sodium 141 Potassium 4.1 Chloride 96 L Carbon Dioxide 41 H* BUN 32 H Creatinine 1.29 H Glucose 88 Calcium 9.3 Liver Function 08/14/17 Range/Units 04:50 Total Bilirubin 1.0 (0.3-1.0) mg/dL AST 16 (13-39) Units/L ALT 10 (7-52) Units/L Alkaline Phosphatase 77 (34-104) Units/L Albumin 2.9 L (3.5-5.7) g/dL - ABG Interpretation ABG results: ABG ABG pH 7.34 pH Units (7.32-7.45) 08/07/17 04:14 ABG pCO2 77 mmHg (35-45) H* 08/07/17 04:14 ABG pO2 83 mmHg (85-104) L 08/07/17 04:14 ABG O2 Saturation 95 % (95-98) 08/07/17 04:14 PT/INR, D-dimer PT 10.8 Seconds (9.4-12.1) 08/05/17 16:50 - VTE Documentation of Mechanical Device: Intermittent pneumatic compression device Consult Discharge Plan - Plan Instructions: Bumetanide (By mouth), Alprazolam (By mouth), Potassium Chloride (By mouth), Hypothyroidism (DC), Anemia (GEN) Referrals: Charly Zelaya MD [Partnered Physician] - (had to send a web request office should contact patient with appointment date and time) Francisco Melgar Jr [Primary Care Provider] - Prescriptions: ALPRAZolam [Xanax 0.25 MG Tablet] 0.25 mg PO HS 5 Days #5 tablet Bumetanide [Bumex] 0.5 mg PO BIDDIURETIC #60 tablet Potassium Chloride [Klor-Con Sprinkle] 10 meq PO DAILY #30 capsule.er <Rickey Webb H - Last Filed: 08/14/17 15:19> Date of Encounter: 08/14/17 - Assessment and plan (1) Acute blood loss anemia Current Visit: Yes Status: Acute (2) GI bleed Current Visit: Yes Status: Acute Qualifiers: GI bleed type/associated pathology: unspecified gastrointestinal hemorrhage type Qualified Code(s): K92.2 - Gastrointestinal hemorrhage, unspecified (3) Chronic kidney disease, stage 3 Current Visit: Yes Status: Chronic (4) Hypothermia Current Visit: Yes Status: Acute Qualifiers: Encounter type: initial encounter Qualified Code(s): T68.XXXA - Hypothermia , initial encounter (5) Shock Current Visit: Yes Status: Acute (6) Myxedema Current Visit: Yes Status: Acute (7) Pancytopenia Current Visit: Yes Status: Acute (8) Atrial fibrillation with slow ventricular response Current Visit: Yes Status: Acute (9) Metabolic alkalosis Current Visit: Yes Status: Acute (10) Congestive heart failure (CHF) Current Visit: Yes Status: Acute Qualifiers: Heart failure type: combined systolic and diastolic Heart failure chronicity: chronic Qualified Code(s): I50.42 - Chronic combined systolic ( congestive) and diastolic (congestive) heart failure (11) Obesity (BMI 30-39.9) Current Visit: Yes Status: Acute - Time Spent With Patient Total time spent is greater than 50% in coordination of care (as documented) at patient's floor/unit and/or counseling patient: - Constitutional Vitals: Temp Pulse Resp BP Pulse Ox 97.7 F 57 16 135/68 97 08/14/17 06:54 08/14/17 11:00 08/14/17 11:06 08/14/17 11:00 08/14/17 11:06 Internal Medicine: Result - Labs CBC & Chem 7: 08/14/17 04:50 08/14/17 04:50 Labs: Short CBC 08/14/17 Range/Units 04:50 WBC 5.4 (4.3-11.1) K/mcL Hgb 8.6 L (11.5-15.4) g/dL Hct 27.4 L (35.3-44.9) % Plt Count 47 L (140-400) K/mcL Neutrophils # 4.1 (1.6-8.9) K/mcL BMP 08/14/17 04:50 Sodium 141 Potassium 4.1 Chloride 96 L Carbon Dioxide 41 H* BUN 32 H Creatinine 1.29 H Glucose 88 Calcium 9.3 Liver Function 08/14/17 Range/Units 04:50 Total Bilirubin 1.0 (0.3-1.0) mg/dL AST 16 (13-39) Units/L ALT 10 (7-52) Units/L Alkaline Phosphatase 77 (34-104) Units/L Albumin 2.9 L (3.5-5.7) g/dL - ABG Interpretation ABG results: ABG ABG pH 7.34 pH Units (7.32-7.45) 08/07/17 04:14 ABG pCO2 77 mmHg (35-45) H* 08/07/17 04:14 ABG pO2 83 mmHg (85-104) L 08/07/17 04:14 ABG O2 Saturation 95 % (95-98) 08/07/17 04:14 PT/INR, D-dimer PT 10.8 Seconds (9.4-12.1) 08/05/17 16:50 - Impressions Impressions Abdomen/Pelvis CT 08/14/17 11:13 IMPRESSION: 1. Mild diffuse hyperattenuation of the liver in keeping with hemochromatosis. 2. No discrete hepatic lesion. 3. Perisplenic and perigastric varices in keeping portal venous hypertension. 4. Diffuse anasarca and bilateral pleural effusion compatible generalized fluid volume overload, possibly related to underlying hepatic cirrhosis. 5. Cholelithiasis. 6. Calcific atherosclerotic disease aorta. 7. Diverticulosis coli without CT evidence of acute diverticulitis. D/ / James Hatfield / James Hatfield Interpreting Provider: James Hatfield - Attending Attestation severe myxedema due to severe hypothyroidism with cardiogenic shock continue levothyroxine acute systolic CHF exacerbation continue Bumex at discharge acute blood loss anemia possibly again from AVMs trasnfused 1 unit of blood GI reconsulted, recommendations appreciated delirium, unknown cause I examined this patient and my medical decision-making was reviewed with the Resident Physician. I agree with the documented findings, disposition and treatment plan as described except to the extent set forth below.
[2017-08-14] MEDS: Pantoprazole 40 MG VIAL IVP SCH ×2 (12:11→17:12)
[2017-08-14] MEDS: Bumetanide 1 MG/4 ML VIAL IVP SCH (12:11)
--- NOTE | 2017-08-14 12:59 | Gastroenterology Progress Note ---
<Deborah Benson - Last Filed: 08/14/17 12:57> Date of Encounter: 08/14/17 Time of Encounter: 09:50 - Assessment and plan (1) Anemia Current Visit: No Status: Acute Assessment and plan: Pt has had chronic GI bleeds due to AVMs and has had multiple scopes in the past. Colonoscopy and push endoscopy 07/10/17 showed no source of bleeding. She needs capsule endoscopy, but has been unable to complete at this time. Platelets are noted to be very low, will order CT abdomen to rule out cirrhosis. Rectal exam reveals dark brown stool. She had tarry BM yesteday. Monitor H&H, may need repeat EGD. Capsule endoscopy as an outpatient. Transfuse as needed. Qualifiers: Anemia type: other cause Other causes of anemia: acute posthemorrhagic Qualified Code(s): D62 - Acute posthemorrhagic anemia - Time Spent With Patient Total time spent is greater than 50% in coordination of care (as documented) at patient's floor/unit and/or counseling patient: - Subjective Interval history: Pt is awake and sitting up in the bed. She states she feels much better. She denies any abdominal pain, nausea or vomiting. She had black tarry stool yesterday. - Constitutional Vitals: Temp Pulse Resp BP Pulse Ox 97.7 F 57 16 135/68 97 08/14/17 06:54 08/14/17 11:00 08/14/17 11:06 08/14/17 11:00 08/14/17 11:06 Exam: CONSTITUTIONAL:~alert, no acute distress.~HEAD:~normocephalic.~EYES:~no jaundice.~NECK:~no obvious swelling.~HEART:~regular rate and rhythm, no murmurs. ~LUNGS:~bilateral fair air entry.~ABDOMEN:~non distended, soft, non tender, no masses palpable, no organomegaly.~RECTAL EXAM:~drk brown stool noted in rectum.~ EXTREMITIES:~no clubbing, cyanosis, 2 + ble edema with redness to lower legs.~ SKIN:~pallor noted.~NEUROLOGIC:~no obvious focal defect.~~~~ Results - Labs CBC & Chem 7: 08/14/17 04:50 08/14/17 04:50 Labs: Last Result Calcium 9.3 mg/dL (8.6-10.3) 08/14/17 04:50 Vitamin B12 1072 pg/mL (250-1100) 08/07/17 03:05 Folate > 22.3 ng/mL (3.0-16.0) H 08/07/17 03:05 Entire Visit Hgb 8.6 g/dL (11.5-15.4) L 08/14/17 04:50 Hct 27.4 % (35.3-44.9) L 08/14/17 04:50 PT 10.8 Seconds (9.4-12.1) 08/05/17 16:50 Total Bilirubin 1.0 mg/dL (0.3-1.0) 08/14/17 04:50 AST 16 Units/L (13-39) 08/14/17 04:50 ALT 10 Units/L (7-52) 08/14/17 04:50 Folate > 22.3 ng/mL (3.0-16.0) H 08/07/17 03:05 - ABG ABG results: ABG ABG pH 7.34 pH Units (7.32-7.45) 08/07/17 04:14 ABG pCO2 77 mmHg (35-45) H* 08/07/17 04:14 ABG pO2 83 mmHg (85-104) L 08/07/17 04:14 ABG O2 Saturation 95 % (95-98) 08/07/17 04:14 PT/INR, D-dimer PT 10.8 Seconds (9.4-12.1) 08/05/17 16:50 - Impressions Impressions Abdomen/Pelvis CT 08/14/17 11:13 IMPRESSION: 1. Mild diffuse hyperattenuation of the liver in keeping with hemochromatosis. 2. No discrete hepatic lesion. 3. Perisplenic and perigastric varices in keeping portal venous hypertension. 4. Diffuse anasarca and bilateral pleural effusion compatible generalized fluid volume overload, possibly related to underlying hepatic cirrhosis. 5. Cholelithiasis. 6. Calcific atherosclerotic disease aorta. 7. Diverticulosis coli without CT evidence of acute diverticulitis. D/ / James Hatfield / James Hatfield Interpreting Provider: James Hatfield - VTE Documentation of Mechanical Device: Intermittent pneumatic compression device Consult Discharge Plan - Plan Instructions: Bumetanide (By mouth), Alprazolam (By mouth), Potassium Chloride (By mouth), Hypothyroidism (DC), Anemia (GEN) Referrals: Charly Zelaya MD [Partnered Physician] - (had to send a web request office should contact patient with appointment date and time) Francisco Melgar Jr [Primary Care Provider] - Prescriptions: ALPRAZolam [Xanax 0.25 MG Tablet] 0.25 mg PO HS 5 Days #5 tablet Bumetanide [Bumex] 0.5 mg PO BIDDIURETIC #60 tablet Potassium Chloride [Klor-Con Sprinkle] 10 meq PO DAILY #30 capsule.er <Ninfa Rojo - Last Filed: 08/14/17 18:45> Date of Encounter: 08/14/17 Time of Encounter: 18:00 - Time Spent With Patient Total time spent is greater than 50% in coordination of care (as documented) at patient's floor/unit and/or counseling patient: - Constitutional Vitals: Temp Pulse Resp BP Pulse Ox 97.7 F 55 18 138/76 97 08/14/17 06:54 08/14/17 15:00 08/14/17 16:08 08/14/17 15:00 08/14/17 16:08 Results - Labs CBC & Chem 7: 08/14/17 04:50 08/14/17 04:50 Labs: Last Result Calcium 9.3 mg/dL (8.6-10.3) 08/14/17 04:50 Vitamin B12 1072 pg/mL (250-1100) 08/07/17 03:05 Folate > 22.3 ng/mL (3.0-16.0) H 08/07/17 03:05 Entire Visit Hgb 8.6 g/dL (11.5-15.4) L 08/14/17 04:50 Hct 27.4 % (35.3-44.9) L 08/14/17 04:50 PT 10.8 Seconds (9.4-12.1) 08/05/17 16:50 Total Bilirubin 1.0 mg/dL (0.3-1.0) 08/14/17 04:50 AST 16 Units/L (13-39) 08/14/17 04:50 ALT 10 Units/L (7-52) 08/14/17 04:50 Folate > 22.3 ng/mL (3.0-16.0) H 08/07/17 03:05 - ABG ABG results: ABG ABG pH 7.34 pH Units (7.32-7.45) 08/07/17 04:14 ABG pCO2 77 mmHg (35-45) H* 08/07/17 04:14 ABG pO2 83 mmHg (85-104) L 08/07/17 04:14 ABG O2 Saturation 95 % (95-98) 08/07/17 04:14 PT/INR, D-dimer PT 10.8 Seconds (9.4-12.1) 08/05/17 16:50 - Impressions Impressions Abdomen/Pelvis CT 08/14/17 11:13 IMPRESSION: 1. Mild diffuse hyperattenuation of the liver in keeping with hemochromatosis. 2. No discrete hepatic lesion. 3. Perisplenic and perigastric varices in keeping portal venous hypertension. 4. Diffuse anasarca and bilateral pleural effusion compatible generalized fluid volume overload, possibly related to underlying hepatic cirrhosis. 5. Cholelithiasis. 6. Calcific atherosclerotic disease aorta. 7. Diverticulosis coli without CT evidence of acute diverticulitis. D/ / James Hatfield / James Hatfield Interpreting Provider: James Hatfield - Attending Attestation I have personally performed a face to face evaluation on this patient. I have reviewed and agree with the care plan. History and Exam by me shows: Patient seen denies any abdominal pain denies any black stool at this point. Assessment: Obscure GI bleeding with negative extensive GI workup. Per patient she had a capsule done before . Recommendation: Patient to follow up with GI as needed and she will follow with oncology to for the management of her anemia
[2017-08-14] MEDS: FLUoxetine 20 MG CAPSULE PO SCH (22:35)
[2017-08-14] MEDS: rOPINIRole 1 MG TABLET PO SCH (22:35)
[2017-08-15] MEDS: Ipratropium/Albuterol Neb 3 ML AER SCH ×7 (00:31→23:37)
[2017-08-15 04:45] LABS: Immature Granulocytes % 0.5 % (0-4)
[2017-08-15 04:47] LABS: Eosinophils # 0.1 K/mcL (0.0-0.6); Eosinophils % 2.1 %; Hematocrit 24.8 % (35.3-44.9); Hemoglobin 7.5 g/dL (11.5-15.4); Immature Platelets 7.1 % (1.1-6.1); Lymphocytes # 0.4 K/mcL (0.6-4.6); Lymphocytes % 10.9 %; Mean Corpuscular HGB Conc 30.2 g/dL (31.6-35.5); Mean Corpuscular Hemoglobin 29.4 pg (28.0-33.3); Mean Corpuscular Volume 97.3 fL (83.0-100.0); Monocytes # 0.4 K/mcL (0.0-1.3); Monocytes % 9.8 %; Red Blood Count 2.55 M/mcL (3.82-4.97); Red Cell Distribution Width 16.6 % (11.5-14.5); Segmented Neutrophils % 76.7 %
[2017-08-15 04:50] LABS: Platelet Count 43 K/mcL (140-400)
[2017-08-15 05:06] LABS: Albumin 2.6 g/dL (3.5-5.7); Albumin/Globulin Ratio 1.2 (1.1-2.2); Bilirubin,Total 0.7 mg/dL (0.3-1.0); Calcium 8.8 mg/dL (8.6-10.3); Globulin 2.1 g/dL (2.4-3.5); Potassium 3.6 mEq/L (3.5-5.1); Total Protein 4.7 g/dL (6.4-8.9)
[2017-08-15] MEDS: Pantoprazole 40 MG VIAL IVP SCH ×2 (05:57→18:05)
[2017-08-15] MEDS: Budesonide/Formoterol 80/4.5 MDI IH SCH ×2 (07:45→19:47)
[2017-08-15] MEDS: Bumetanide 1 MG/4 ML VIAL IVP SCH (08:47)
[2017-08-15] MEDS: Sucralfate 1 GM TABLET PO SCH ×4 (08:49→21:31)
[2017-08-15] MEDS: Folic Acid 1 MG TABLET PO SCH (08:50)
[2017-08-15] MEDS: *HR* Amiodarone 200 MG TABLET PO SCH (08:50)
[2017-08-15 09:43] LABS: Bilirubin,Urine Small (Negative); Blood,Urine Large (Negative); Color,Urine Red (Yellow); Glucose,Urine (UA) Normal (Normal); Ketones,Urine Trace mg/dL (Negative); Leukocyte Esterase,Urine Large (Negative); Nitrite,Urine Negative (Negative); PH,Urine 6.5 pH Units (5.0-8.0); Protein,Urine 100 mg/dL (Neg-Trace); Specific Gravity,Urine 1.018 (1.010-1.025); Urobilinogen,Urine Normal (Normal)
[2017-08-15 09:47] LABS: Clarity,Urine Hazy (Clear)
[2017-08-15 10:03] LABS: RBC,Urine TNTC per hpf (0-3)
[2017-08-15 10:04] LABS: Bacteria,Urine Moderate per hpf (None-Few); Squamous Epithelial Cell,Urine Few per lpf (None-Few); WBC,Urine 30-50 per hpf (0-3)
[2017-08-15 10:05] LABS: Amorphous Sediment,Urine Few (Few)
--- NOTE | 2017-08-15 10:25 | Internal Med Progress Note ---
<Segundo Alvarez - Last Filed: 08/15/17 10:23> Date of Encounter: 08/15/17 Time of Encounter: 10:23 - Assessment and plan (1) GI bleed Current Visit: Yes Status: Acute Assessment and plan: Patient with angiectasia on 07/10/2017 EGD. Not currently on any anticoagulation. Patient continues to have black tarry stools. hgb dropped today form 8.6 to 7.5. patient had 1 unit prbc [address] abd yesterday was consistent with hemochromatosis, perisplenic and perigastric varices. - consulted GI, appreciate their recommendations - ordered 1 unit of prbc - will continue to follow morning labs Qualifiers: GI bleed type/associated pathology: unspecified gastrointestinal hemorrhage type Qualified Code(s): K92.2 - Gastrointestinal hemorrhage, unspecified (2) Myxedema Current Visit: Yes Status: Acute Assessment and plan: Patient received IV dose in ED due to TSH of 29.5. Patient has not been taking home medications. Likely myxedema and anemia as contributing factors for patients presenting symptoms. At this point, resolved. - continue home levo 150. - patient educated on the importance of taking medications. 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 Patient no longer on anticoagulation or Plavix. Patient received 3 units of prbc and hgb has remained relatively stable around 7.8-8.1. today hgb dropped to 7.5 ordering another unit of blood - continue carafate, PPI (4) Chronic kidney disease, stage 3 Current Visit: Yes Status: Chronic Assessment and plan: avoid nephrotoxic agents. (5) Hypothermia Current Visit: Yes Status: Acute Assessment and plan: resolved as of right now. Qualifiers: Encounter type: initial encounter Qualified Code(s): T68.XXXA - Hypothermia , initial encounter (6) Shock Current Visit: Yes Status: Acute Assessment and plan: resolved as of right now. Patient was transferred from ICU. On admission patient was hypotensive, anemic, and hypothermic. Patient was treated for GI bleed, prbc replenished. (7) Pancytopenia Current Visit: Yes Status: Acute Assessment and plan: Chronic pancytopenia. -Patient follows with heme/onc as an outpatient. (8) Atrial fibrillation with slow ventricular response Current Visit: Yes Status: Acute Assessment and plan: Patient with AICD in place. -Hold BB for now. - on rhythm control with amiodarone (9) Metabolic alkalosis Current Visit: Yes Status: Acute Assessment and plan: most likely resolved. Patient has known chornic hx of COPD. Bicarb has been elevated throughout hospital admission. will continue to follow (10) Congestive heart failure (CHF) Current Visit: Yes Status: Acute Assessment and plan: Echocardiogram in 04/03/2017 shows LVEF of 45%, mild global LV systolic dysfunction, atypical septal motion consistent with postop status, mildly dilated LV, diastolic dysfunction, dilated RV with normal function, severe biatrial enlargement, s/p mechanical aortic valve, mild tricuspid regurgitation , and mild pulmonary hypertension. 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 (12) Hematuria Current Visit: Yes Status: Acute Assessment and plan: overnight patient had gross blood seen in urinal hat. Urine dipstick read as positive for blood and microscopic RBC. - ordered U/A w/ microscopic; consider consulting urology. Qualifiers: Qualified Code(s): R31.9 - Hematuria, unspecified - Time Spent With Patient Total time spent is greater than 50% in coordination of care (as documented) at patient's floor/unit and/or counseling patient: - Subjective Interval history: Ms Higginbotham was seen and examined today. Per nurse, and night team sign out patient urinated in a hat last night and it appeared orange with no stool in the hat. Patient reports that she continues to improve and does not feel confused today. Patient denies any new complaints today. Patient denies chest pain, SOB, nausea, vomiting, diarrhea. - Constitutional Vitals: Temp Pulse Resp BP Pulse Ox 97.8 F 54 18 112/55 97 08/15/17 06:50 08/15/17 06:50 08/15/17 07:48 08/15/17 06:50 08/15/17 09:01 General appearance: Present: cooperative, A&O X 3, morbidly obese, pleasant, no acute distress - Head Head exam: Present: atraumatic, normocephalic - Eye Eye exam: Present: PERRL, conjuntiva pink, sclera anicteric Pupils: Present: PERRL - Neck Neck exam general surgery: Present: supple, trachea midline. Absent: lymphadenopathy - Respiratory Respiratory exam: Present: decreased breath sounds, prolonged expiratory phase. Absent: accessory muscle use, rales, rhonchi, wheezes - Cardiovascular Cardiovascular exam: Present: RRR, +S1, +S2. Absent: diastolic murmur, gallop, rubs, systolic murmur - GI/Abdominal GI/Abdominal exam: Present: normal bowel sounds, soft, no peritoneal signs. Absent: distended, firm, guarding, mass, rebound, rigid, tenderness - Extremities Exam Extremities exam: Present: pedal edema (1+ BLE), warm, radial pulses palpable and symmetrical. Absent: calf tenderness, cyanotic - Neurological Exam Neurological exam: Present: CN II-XII intact, oriented X3, no focal deficits. Absent: pronater drift, facial droop, speech deficit - Skin Skin exam: Present: dry, intact Internal Medicine: Result - Labs CBC & Chem 7: 08/15/17 04:25 08/15/17 04:25 Labs: Short CBC 08/15/17 Range/Units 04:25 WBC 3.9 L (4.3-11.1) K/mcL Hgb 7.5 L (11.5-15.4) g/dL Hct 24.8 L (35.3-44.9) % Plt Count 43 L (140-400) K/mcL Neutrophils # 3.0 (1.6-8.9) K/mcL BMP 08/15/17 04:25 Sodium 142 Potassium 3.6 Chloride 95 L Carbon Dioxide 44 H* BUN 29 H Creatinine 1.26 H Glucose 88 Calcium 8.8 Liver Function 08/15/17 Range/Units 04:25 Total Bilirubin 0.7 (0.3-1.0) mg/dL AST 10 L (13-39) Units/L ALT 7 (7-52) Units/L Alkaline Phosphatase 71 (34-104) Units/L Albumin 2.6 L (3.5-5.7) g/dL Urine 08/15/17 Range/Units 09:01 Urine Color Red A (Yellow) Urine Clarity Hazy A (Clear) Urine pH 6.5 (5.0-8.0) pH Units Ur Specific [place] 1.018 (1.010-1.025) Urine Protein 100 H (Neg-Trace) mg/dL Urine Glucose (UA) Normal (Normal) mg/dL - ABG Interpretation ABG results: ABG ABG pH 7.34 pH Units (7.32-7.45) 08/07/17 04:14 ABG pCO2 77 mmHg (35-45) H* 08/07/17 04:14 ABG pO2 83 mmHg (85-104) L 08/07/17 04:14 ABG O2 Saturation 95 % (95-98) 08/07/17 04:14 PT/INR, D-dimer PT 10.8 Seconds (9.4-12.1) 08/05/17 16:50 - Impressions Impressions Abdomen/Pelvis CT 08/14/17 11:13 IMPRESSION: 1. Mild diffuse hyperattenuation of the liver in keeping with hemochromatosis. 2. No discrete hepatic lesion. 3. Perisplenic and perigastric varices in keeping portal venous hypertension. 4. Diffuse anasarca and bilateral pleural effusion compatible generalized fluid volume overload, possibly related to underlying hepatic cirrhosis. 5. Cholelithiasis. 6. Calcific atherosclerotic disease aorta. 7. Diverticulosis coli without CT evidence of acute diverticulitis. D/ / James Hatfield / James Hatfield Interpreting Provider: James Hatfield - VTE Documentation of Mechanical Device: Intermittent pneumatic compression device Consult Discharge Plan - Plan Instructions: Bumetanide (By mouth), Alprazolam (By mouth), Potassium Chloride (By mouth), Hypothyroidism (DC), Anemia (GEN) Referrals: Charly Zelaya MD [Partnered Physician] - (had to send a web request office should contact patient with appointment date and time) Francisco Melgar Jr [Primary Care Provider] - Prescriptions: ALPRAZolam [Xanax 0.25 MG Tablet] 0.25 mg PO HS 5 Days #5 tablet Bumetanide [Bumex] 0.5 mg PO BIDDIURETIC #60 tablet Potassium Chloride [Klor-Con Sprinkle] 10 meq PO DAILY #30 capsule.er <Rickey Webb H - Last Filed: 08/15/17 13:10> Date of Encounter: 08/15/17 - Assessment and plan (1) Acute blood loss anemia Current Visit: Yes Status: Acute (2) GI bleed Current Visit: Yes Status: Acute Qualifiers: GI bleed type/associated pathology: unspecified gastrointestinal hemorrhage type Qualified Code(s): K92.2 - Gastrointestinal hemorrhage, unspecified (3) Chronic kidney disease, stage 3 Current Visit: Yes Status: Chronic (4) Hypothermia Current Visit: Yes Status: Acute Qualifiers: Encounter type: initial encounter Qualified Code(s): T68.XXXA - Hypothermia , initial encounter (5) Shock Current Visit: Yes Status: Acute (6) Myxedema Current Visit: Yes Status: Acute (7) Pancytopenia Current Visit: Yes Status: Acute (8) Atrial fibrillation with slow ventricular response Current Visit: Yes Status: Acute (9) Metabolic alkalosis Current Visit: Yes Status: Acute (10) Congestive heart failure (CHF) Current Visit: Yes Status: Acute Qualifiers: Heart failure type: combined systolic and diastolic Heart failure chronicity: chronic Qualified Code(s): I50.42 - Chronic combined systolic ( congestive) and diastolic (congestive) heart failure (11) Obesity (BMI 30-39.9) Current Visit: Yes Status: Acute (12) Hematuria Current Visit: Yes Status: Acute Qualifiers: Qualified Code(s): R31.9 - Hematuria, unspecified - Time Spent With Patient Total time spent is greater than 50% in coordination of care (as documented) at patient's floor/unit and/or counseling patient: - Constitutional Vitals: Temp Pulse Resp BP Pulse Ox 97.1 F L 60 18 119/67 97 08/15/17 12:15 08/15/17 12:15 08/15/17 12:21 08/15/17 12:15 08/15/17 12:21 Internal Medicine: Result - Labs CBC & Chem 7: 08/15/17 04:25 08/15/17 04:25 Labs: Short CBC 08/15/17 Range/Units 04:25 WBC 3.9 L (4.3-11.1) K/mcL Hgb 7.5 L (11.5-15.4) g/dL Hct 24.8 L (35.3-44.9) % Plt Count 43 L (140-400) K/mcL Neutrophils # 3.0 (1.6-8.9) K/mcL BMP 08/15/17 04:25 Sodium 142 Potassium 3.6 Chloride 95 L Carbon Dioxide 44 H* BUN 29 H Creatinine 1.26 H Glucose 88 Calcium 8.8 Liver Function 08/15/17 Range/Units 04:25 Total Bilirubin 0.7 (0.3-1.0) mg/dL AST 10 L (13-39) Units/L ALT 7 (7-52) Units/L Alkaline Phosphatase 71 (34-104) Units/L Albumin 2.6 L (3.5-5.7) g/dL Urine 08/15/17 08/15/17 Range/Units 09:01 10:35 Urine Color Red A Yellow (Yellow) Urine Clarity Hazy A Hazy A (Clear) Urine pH 6.5 6.0 (5.0-8.0) pH Units Ur Specific [place] 1.018 1.015 (1.010-1.025) Urine Protein 100 H 30 H (Neg-Trace) mg/dL Urine Glucose (UA) Normal Normal (Normal) mg/dL - ABG Interpretation ABG results: ABG ABG pH 7.34 pH Units (7.32-7.45) 08/07/17 04:14 ABG pCO2 77 mmHg (35-45) H* 08/07/17 04:14 ABG pO2 83 mmHg (85-104) L 08/07/17 04:14 ABG O2 Saturation 95 % (95-98) 08/07/17 04:14 PT/INR, D-dimer PT 10.8 Seconds (9.4-12.1) 08/05/17 16:50 - Attending Attestation acute blood loss anemia possibly again from AVMs trasnfused 2 units of blood GI reconsulted, No EGD recommended for now, capsule study as outpatient Hematuria due to possible UTI start levaquin urine culture pending severe myxedema due to severe hypothyroidism with cardiogenic shock continue levothyroxine acute systolic CHF exacerbation continue Bumex at discharge delirium, unknown cause, resolved I examined this patient and my medical decision-making was reviewed with the Resident Physician. I agree with the documented findings, disposition and treatment plan as described except to the extent set forth below.
--- NOTE | 2017-08-15 11:12 | Gastroenterology Progress Note ---
<Deborah Benson - Last Filed: 08/15/17 11:09> Date of Encounter: 08/15/17 Time of Encounter: 10:15 - Assessment and plan (1) Anemia Current Visit: No Status: Acute Assessment and plan: Pt has had chronic GI bleeds due to AVMs and has had multiple scopes in the past. Colonoscopy and push endoscopy 07/10/17 showed no source of bleeding. Hgb 7.5 today will transfuse 1 unit prbs, will defer repeat EGD at this time. Monitor H&H. Capsule endoscopy as an outpatient. Transfuse as needed. Qualifiers: Anemia type: other cause Other causes of anemia: acute posthemorrhagic Qualified Code(s): D62 - Acute posthemorrhagic anemia - Time Spent With Patient Total time spent is greater than 50% in coordination of care (as documented) at patient's floor/unit and/or counseling patient: - Subjective Interval history: Pt is awake and sitting up in bed. She denies bloody or tarry stools. She states she has her normal dark stools from iron supplements. She denies abdominal pain, nausea or vomiting. hgb was 7.5 this am. - Constitutional Vitals: Temp Pulse Resp BP Pulse Ox 97.8 F 54 18 112/55 97 08/15/17 06:50 08/15/17 06:50 08/15/17 07:48 08/15/17 06:50 08/15/17 09:01 Exam: CONSTITUTIONAL:~alert, no acute distress.~HEAD:~normocephalic.~EYES:~no jaundice.~NECK:~no obvious swelling.~HEART:~regular rate and rhythm, no murmurs. ~LUNGS:~bilateral good air entry.~ABDOMEN:~non distended, soft, non tender, no masses palpable, no organomegaly.~RECTAL EXAM:~Deferred.~EXTREMITIES:~no clubbing, cyanosis or edema.~SKIN:~pallor noted, no stigmata of chronic liver disease.~NEUROLOGIC:~no obvious focal defect.~~~~ Results - Labs CBC & Chem 7: 08/15/17 04:25 08/15/17 04:25 Labs: Last Result Calcium 8.8 mg/dL (8.6-10.3) 08/15/17 04:25 Vitamin B12 1072 pg/mL (250-1100) 08/07/17 03:05 Folate > 22.3 ng/mL (3.0-16.0) H 08/07/17 03:05 Entire Visit Hgb 7.5 g/dL (11.5-15.4) L 08/15/17 04:25 Hct 24.8 % (35.3-44.9) L 08/15/17 04:25 PT 10.8 Seconds (9.4-12.1) 08/05/17 16:50 Total Bilirubin 0.7 mg/dL (0.3-1.0) 08/15/17 04:25 AST 10 Units/L (13-39) L 08/15/17 04:25 ALT 7 Units/L (7-52) 08/15/17 04:25 Folate > 22.3 ng/mL (3.0-16.0) H 08/07/17 03:05 - ABG ABG results: ABG ABG pH 7.34 pH Units (7.32-7.45) 08/07/17 04:14 ABG pCO2 77 mmHg (35-45) H* 08/07/17 04:14 ABG pO2 83 mmHg (85-104) L 08/07/17 04:14 ABG O2 Saturation 95 % (95-98) 08/07/17 04:14 PT/INR, D-dimer PT 10.8 Seconds (9.4-12.1) 08/05/17 16:50 - Impressions Impressions Abdomen/Pelvis CT 08/14/17 11:13 IMPRESSION: 1. Mild diffuse hyperattenuation of the liver in keeping with hemochromatosis. 2. No discrete hepatic lesion. 3. Perisplenic and perigastric varices in keeping portal venous hypertension. 4. Diffuse anasarca and bilateral pleural effusion compatible generalized fluid volume overload, possibly related to underlying hepatic cirrhosis. 5. Cholelithiasis. 6. Calcific atherosclerotic disease aorta. 7. Diverticulosis coli without CT evidence of acute diverticulitis. D/ / James Hatfield / James Hatfield Interpreting Provider: James Hatfield - VTE Documentation of Mechanical Device: Intermittent pneumatic compression device Consult Discharge Plan - Plan Instructions: Bumetanide (By mouth), Alprazolam (By mouth), Potassium Chloride (By mouth), Hypothyroidism (DC), Anemia (GEN) Referrals: Charly Zelaya MD [Partnered Physician] - (had to send a web request office should contact patient with appointment date and time) Francisco Melgar Jr [Primary Care Provider] - Prescriptions: ALPRAZolam [Xanax 0.25 MG Tablet] 0.25 mg PO HS 5 Days #5 tablet Bumetanide [Bumex] 0.5 mg PO BIDDIURETIC #60 tablet Potassium Chloride [Klor-Con Sprinkle] 10 meq PO DAILY #30 capsule.er <Ninfa Rojo - Last Filed: 08/15/17 13:14> Date of Encounter: 08/15/17 Time of Encounter: 09:10 - Time Spent With Patient Total time spent is greater than 50% in coordination of care (as documented) at patient's floor/unit and/or counseling patient: - Constitutional Vitals: Temp Pulse Resp BP Pulse Ox 97.1 F L 60 18 119/67 97 08/15/17 12:15 08/15/17 12:15 08/15/17 12:21 08/15/17 12:15 08/15/17 12:21 Results - Labs CBC & Chem 7: 08/15/17 04:25 08/15/17 04:25 Labs: Last Result Calcium 8.8 mg/dL (8.6-10.3) 08/15/17 04:25 Vitamin B12 1072 pg/mL (250-1100) 08/07/17 03:05 Folate > 22.3 ng/mL (3.0-16.0) H 08/07/17 03:05 Entire Visit Hgb 7.5 g/dL (11.5-15.4) L 08/15/17 04:25 Hct 24.8 % (35.3-44.9) L 08/15/17 04:25 PT 10.8 Seconds (9.4-12.1) 08/05/17 16:50 Total Bilirubin 0.7 mg/dL (0.3-1.0) 08/15/17 04:25 AST 10 Units/L (13-39) L 08/15/17 04:25 ALT 7 Units/L (7-52) 08/15/17 04:25 Folate > 22.3 ng/mL (3.0-16.0) H 08/07/17 03:05 - ABG ABG results: ABG ABG pH 7.34 pH Units (7.32-7.45) 08/07/17 04:14 ABG pCO2 77 mmHg (35-45) H* 08/07/17 04:14 ABG pO2 83 mmHg (85-104) L 08/07/17 04:14 ABG O2 Saturation 95 % (95-98) 08/07/17 04:14 PT/INR, D-dimer PT 10.8 Seconds (9.4-12.1) 08/05/17 16:50 - Attending Attestation I have personally performed a face to face evaluation on this patient. I have reviewed and agree with the care plan. History and Exam by me shows: Pt seen. No abdominal pain or bleeding per rectum. Assessment patient with obscure GI bleeding with negative extensive workup in the past. Recommendation: Patient to have one unit of blood transfused today and then she to follow up with the oncology Dr. Hines as an outpatient
[2017-08-15 11:32] LABS: Bilirubin,Urine Negative (Negative); Blood,Urine Large (Negative); Color,Urine Yellow (Yellow); Glucose,Urine (UA) Normal (Normal); Ketones,Urine Negative (Negative); Leukocyte Esterase,Urine Large (Negative); Nitrite,Urine Negative (Negative); Protein,Urine 30 mg/dL (Neg-Trace); Specific Gravity,Urine 1.015 (1.010-1.025); Urobilinogen,Urine Normal (Normal)
[2017-08-15 11:37] LABS: Bacteria,Urine Many per hpf (None-Few); Hyaline Casts,Urine None Seen per lpf (None-Few); RBC,Urine TNTC per hpf (0-3); Squamous Epithelial Cell,Urine Many per lpf (None-Few); WBC,Urine TNTC per hpf (0-3)
[2017-08-15 11:38] LABS: Clarity,Urine Hazy (Clear)
[2017-08-15] MEDS ORDERED: 0.9 % Sodium Chloride 250 ML ONE (11:42)
[2017-08-15] MEDS: ALPRAZolam 0.5 MG TABLET PO SCH (21:32)
[2017-08-15] MEDS: FLUoxetine 20 MG CAPSULE PO SCH (21:32)
[2017-08-15] MEDS: rOPINIRole 1 MG TABLET PO SCH (21:32)
[2017-08-16] MEDS: Ipratropium/Albuterol Neb 3 ML AER SCH ×5 (03:38→20:48)
[2017-08-16 04:06] LABS: Basophils % 0.3 %; Immature Granulocytes % 0.5 % (0-4); Lymphocytes % 10.6 %
[2017-08-16 04:08] LABS: Eosinophils # 0.1 K/mcL (0.0-0.6); Eosinophils % 2.1 %; Hematocrit 27.4 % (35.3-44.9); Hemoglobin 8.4 g/dL (11.5-15.4); Immature Platelets 8.4 % (1.1-6.1); Lymphocytes # 0.4 K/mcL (0.6-4.6); Mean Corpuscular HGB Conc 30.7 g/dL (31.6-35.5); Mean Corpuscular Hemoglobin 28.9 pg (28.0-33.3); Mean Corpuscular Volume 94.2 fL (83.0-100.0); Mean Platelet Volume 11.8 fL (9.4-12.4); Monocytes # 0.4 K/mcL (0.0-1.3); Monocytes % 9.8 %; Neutrophils # 2.9 K/mcL (1.6-8.9); Red Blood Count 2.91 M/mcL (3.82-4.97); Red Cell Distribution Width 17.6 % (11.5-14.5); Segmented Neutrophils % 76.7 %
[2017-08-16 04:09] LABS: Platelet Count 49 K/mcL (140-400)
[2017-08-16 04:40] LABS: Albumin 2.6 g/dL (3.5-5.7); Albumin/Globulin Ratio 1.2 (1.1-2.2); Bilirubin,Total 0.8 mg/dL (0.3-1.0); Calcium 8.7 mg/dL (8.6-10.3); Globulin 2.2 g/dL (2.4-3.5); Potassium 3.4 mEq/L (3.5-5.1); Total Protein 4.8 g/dL (6.4-8.9)
[2017-08-16 04:59] LABS: Bilirubin,Urine Negative (Negative); Blood,Urine Large (Negative); Clarity,Urine Cloudy (Clear); Glucose,Urine (UA) Normal (Normal); Ketones,Urine Negative (Negative); Leukocyte Esterase,Urine Large (Negative); Nitrite,Urine Negative (Negative); Protein,Urine 100 mg/dL (Neg-Trace); Specific Gravity,Urine 1.016 (1.010-1.025); Urobilinogen,Urine Normal (Normal)
[2017-08-16 05:01] LABS: Bacteria,Urine Many per hpf (None-Few); Hyaline Casts,Urine None Seen per lpf (None-Few); RBC,Urine TNTC per hpf (0-3); Squamous Epithelial Cell,Urine None Seen per lpf (None-Few); WBC,Urine 0-3 per hpf (0-3)
[2017-08-16 05:02] LABS: Color,Urine Red (Yellow)
[2017-08-16] MEDS: Pantoprazole 40 MG VIAL IVP SCH ×2 (06:19→16:34)
[2017-08-16] MEDS: Budesonide/Formoterol 80/4.5 MDI IH SCH ×2 (07:43→20:48)
[2017-08-16] MEDS ORDERED: Levofloxacin 750 MG/150 ML 750 MG/150 ML BAG IVPB SCH (09:00)
[2017-08-16] MEDS: Bumetanide 1 MG/4 ML VIAL IVP SCH (09:57)
[2017-08-16] MEDS: *HR* Amiodarone 200 MG TABLET PO SCH (09:58)
[2017-08-16] MEDS: Folic Acid 1 MG TABLET PO SCH (09:58)
[2017-08-16] MEDS: Sucralfate 1 GM TABLET PO SCH ×4 (09:58→21:50)
--- NOTE | 2017-08-16 11:33 | Internal Med Progress Note ---
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 Patient no longer on anticoagulation or Plavix. - continue carafate, Protonix IV (2) Hematuria Current Visit: Yes Status: Acute Assessment and plan: Hematuria possibly secondary to UTI Discontinue Levaquin and start Rocephin Culture pending, consider urology consult if not improving Qualifiers: Qualified Code(s): R31.9 - Hematuria, unspecified (3) GI bleed Current Visit: Yes Status: Acute Assessment and plan: Patient with angiectasia on 07/10/2017 EGD. Not currently on any anticoagulation. Patient continued to have black tarry stools, no bowel movements today. CT abd yesterday was consistent with hemochromatosis, perisplenic and perigastric varices. Qualifiers: GI bleed type/associated pathology: unspecified gastrointestinal hemorrhage type Qualified Code(s): K92.2 - Gastrointestinal hemorrhage, unspecified (4) Chronic kidney disease, stage 3 Current Visit: Yes Status: Chronic Assessment and plan: avoid nephrotoxic agents. (5) Hypothermia Current Visit: Yes Status: Acute Assessment and plan: resolved as of right now. Qualifiers: Encounter type: initial encounter Qualified Code(s): T68.XXXA - Hypothermia , initial encounter (6) Shock Current Visit: Yes Status: Acute Assessment and plan: Possibly cardiogenic shock due to severe myxedema/severe hypothyroidism resolved as of right now. Patient was transferred from ICU. On admission patient was hypotensive, anemic, and hypothermic. Patient was treated for GI bleed, prbc replenished. (7) Myxedema Current Visit: Yes Status: Acute Assessment and plan: severe myxedema due to severe hypothyroidism with cardiogenic shock continue levothyroxine Patient received IV dose in ED due to TSH of 29.5. Patient has not been taking home medications apparently. - patient educated on the importance of taking medications. (8) Pancytopenia Current Visit: Yes Status: Acute Assessment and plan: Chronic pancytopenia. -Patient follows with heme/onc as an outpatient. (9) Atrial fibrillation with slow ventricular response Current Visit: Yes Status: Acute Assessment and plan: Patient with AICD in place. -Hold BB for now. - on rhythm control with amiodarone (10) Metabolic alkalosis Current Visit: Yes Status: Acute Assessment and plan: most likely resolved. Patient has known chornic hx of COPD. Bicarb has been elevated throughout hospital admission. (11) Congestive heart failure (CHF) Current Visit: Yes Status: Acute Assessment and plan: acute systolic CHF exacerbation continue Bumex at discharge Echocardiogram in 04/03/2017 shows LVEF of 45%, mild global LV systolic dysfunction, atypical septal motion consistent with postop status, mildly dilated LV, diastolic dysfunction, dilated RV with normal function, severe biatrial enlargement, s/p mechanical aortic valve, mild tricuspid regurgitation , and mild pulmonary hypertension. Qualifiers: Heart failure type: combined systolic and diastolic Heart failure chronicity: chronic Qualified Code(s): I50.42 - Chronic combined systolic ( congestive) and diastolic (congestive) heart failure (12) Obesity (BMI 30-39.9) Current Visit: Yes Status: Acute Assessment and plan: chronic, educated patient on benefits of losing weight. - Time Spent With Patient Total time spent is greater than 50% in coordination of care (as documented) at patient's floor/unit and/or counseling patient: - Subjective Interval history: Denies any dysuria, continues to have hematuria, denies any chest pain, shortness of breath has improved, denies any abdominal pain or diarrhea, no fevers - Constitutional Vitals: Temp Pulse Resp BP Pulse Ox 98.9 F 62 16 110/51 96 08/16/17 06:59 08/16/17 06:59 08/16/17 07:44 08/16/17 06:59 08/16/17 07:44 General appearance: Present: cooperative, A&O X 3, morbidly obese, pleasant, no acute distress - Head Head exam: Present: atraumatic, normocephalic - Eye Eye exam: Present: PERRL, conjuntiva pink, sclera anicteric Pupils: Present: PERRL - Neck Neck exam general surgery: Present: supple, trachea midline. Absent: lymphadenopathy - Respiratory Respiratory exam: Present: decreased breath sounds (Diminished breath sounds bilaterally), CTAB. Absent: accessory muscle use, rales, rhonchi, wheezes - Cardiovascular Cardiovascular exam: Present: RRR, +S1, +S2, systolic murmur (Loud systolic murmur). Absent: diastolic murmur, gallop, rubs - GI/Abdominal GI/Abdominal exam: Present: normal bowel sounds, soft, no peritoneal signs. Absent: distended, tenderness - Extremities Exam Extremities exam: Present: pedal edema (+1 pitting edema in both lower extremities), warm, radial pulses palpable and symmetrical. Absent: calf tenderness, cyanotic - Neurological Exam Neurological exam: Present: CN II-XII intact, oriented X3, no focal deficits. Absent: pronater drift, facial droop, speech deficit - Skin Skin exam: Present: dry, intact Internal Medicine: Result - Labs CBC & Chem 7: 08/16/17 03:54 08/16/17 03:54 Labs: Short CBC 08/16/17 Range/Units 03:54 WBC 3.8 L (4.3-11.1) K/mcL Hgb 8.4 L (11.5-15.4) g/dL Hct 27.4 L (35.3-44.9) % Plt Count 49 L (140-400) K/mcL Neutrophils # 2.9 (1.6-8.9) K/mcL BMP 08/16/17 03:54 Sodium 140 Potassium 3.4 L Chloride 93 L Carbon Dioxide 45 H* BUN 27 H Creatinine 1.24 H Glucose 84 Calcium 8.7 Liver Function 08/16/17 Range/Units 03:54 Total Bilirubin 0.8 (0.3-1.0) mg/dL AST 9 L (13-39) Units/L ALT 8 (7-52) Units/L Alkaline Phosphatase 75 (34-104) Units/L Albumin 2.6 L (3.5-5.7) g/dL Urine 08/15/17 08/16/17 Range/Units 10:35 04:13 Urine Color Yellow Red A (Yellow) Urine Clarity Hazy A Cloudy A (Clear) Urine pH 6.0 6.0 (5.0-8.0) pH Units Ur Specific [place] 1.015 1.016 (1.010-1.025) Urine Protein 30 H 100 H (Neg-Trace) mg/dL Urine Glucose (UA) Normal Normal (Normal) mg/dL - ABG Interpretation ABG results: ABG ABG pH 7.34 pH Units (7.32-7.45) 08/07/17 04:14 ABG pCO2 77 mmHg (35-45) H* 08/07/17 04:14 ABG pO2 83 mmHg (85-104) L 08/07/17 04:14 ABG O2 Saturation 95 % (95-98) 08/07/17 04:14 PT/INR, D-dimer PT 10.8 Seconds (9.4-12.1) 08/05/17 16:50 - VTE Documentation of Mechanical Device: Intermittent pneumatic compression device Consult Discharge Plan - Plan Instructions: Bumetanide (By mouth), Alprazolam (By mouth), Potassium Chloride (By mouth), Hypothyroidism (DC), Anemia (GEN) Referrals: Charly Zelaya MD [Partnered Physician] - (had to send a web request office should contact patient with appointment date and time) Francisco Melgar Jr [Primary Care Provider] - Prescriptions: ALPRAZolam [Xanax 0.25 MG Tablet] 0.25 mg PO HS 5 Days #5 tablet Bumetanide [Bumex] 0.5 mg PO BIDDIURETIC #60 tablet Potassium Chloride [Klor-Con Sprinkle] 10 meq PO DAILY #30 capsule.er
[2017-08-16] MEDS: cefTRIAXone 1,000 MG in Water for inj. (sterile) 20 ML 10 ML IVPB SCH (12:27)
[2017-08-16] MEDS: FLUoxetine 20 MG CAPSULE PO SCH (21:49)
[2017-08-16] MEDS: rOPINIRole 1 MG TABLET PO SCH (21:49)
[2017-08-16] MEDS: ALPRAZolam 0.5 MG TABLET PO SCH (21:49)
[2017-08-16] MEDS ORDERED: Acetaminophen 325 MG TABLET PO ONE (22:52)
[2017-08-17 03:49] LABS: Eosinophils % 1.7 %
[2017-08-17 03:51] LABS: Eosinophils # 0.1 K/mcL (0.0-0.6); Hematocrit 26.7 % (35.3-44.9); Hemoglobin 8.2 g/dL (11.5-15.4); Immature Granulocytes % 0.3 % (0-4); Immature Platelets 6.6 % (1.1-6.1); Lymphocytes # 0.4 K/mcL (0.6-4.6); Lymphocytes % 10.7 %; Mean Corpuscular HGB Conc 30.7 g/dL (31.6-35.5); Mean Corpuscular Hemoglobin 29.7 pg (28.0-33.3); Mean Corpuscular Volume 96.7 fL (83.0-100.0); Monocytes # 0.4 K/mcL (0.0-1.3); Monocytes % 11.8 %; Neutrophils # 2.6 K/mcL (1.6-8.9); Red Blood Count 2.76 M/mcL (3.82-4.97); Red Cell Distribution Width 17.1 % (11.5-14.5); Segmented Neutrophils % 75.5 %
[2017-08-17 03:52] LABS: Platelet Count 53 K/mcL (140-400)
[2017-08-17 04:13] LABS: Alanine Aminotransferase 8 Units/L (7-52); Albumin 2.6 g/dL (3.5-5.7); Albumin/Globulin Ratio 1.3 (1.1-2.2); Alkaline Phosphatase 71 Units/L (34-104); Aspartate Amino Transferase 10 Units/L (13-39); BUN/Creatinine Ratio 24 (6-26); Bilirubin,Total 0.6 mg/dL (0.3-1.0); Blood Urea Nitrogen 28 mg/dL (8-23); Calcium 8.7 mg/dL (8.6-10.3); Carbon Dioxide > 45 mEq/L (23-29); Chloride 95 mEq/L (98-107); Glucose 85 mg/dL (70-105); Osmolality,Calculated 299 (280-300); Sodium 142 mEq/L (136-145); Total Protein 4.6 g/dL (6.4-8.9); eGFR For African Americans 53 (> 60); eGFR For Non-African Americans 44 (> 60)
[2017-08-17] MEDS: Ipratropium/Albuterol Neb 3 ML AER SCH ×6 (04:43→20:02)
[2017-08-17] MEDS: Pantoprazole 40 MG VIAL IVP SCH ×2 (05:54→16:40)
[2017-08-17] MEDS: Budesonide/Formoterol 80/4.5 MDI IH SCH ×2 (08:23→20:02)
[2017-08-17] MEDS: *HR* Amiodarone 200 MG TABLET PO SCH (09:30)
[2017-08-17] MEDS: Sucralfate 1 GM TABLET PO SCH ×4 (09:30→21:16)
[2017-08-17] MEDS: Folic Acid 1 MG TABLET PO SCH (09:31)
[2017-08-17] MEDS: Bumetanide 1 MG/4 ML VIAL IVP SCH ×2 (09:31→21:15)
[2017-08-17] MEDS: cefTRIAXone 1,000 MG in Water for inj. (sterile) 20 ML 10 ML IVPB SCH (09:39)
--- NOTE | 2017-08-17 11:29 | Internal Med Progress Note ---
Date of Encounter: 08/17/17 Time of Encounter: 11:24 - Assessment and plan (1) Acute blood loss anemia Current Visit: Yes Status: Acute Assessment and plan: Acute blood loss anemia likely secondary to GI bleed with recent history of AVMs which were cauterized and also new onset hematuria Has been transfused with 3 units of blood total GI was reconsulted no EGD recommended for now, the recommending a capsule study as an outpatient multiple angiodysplastic lesions found on prior endoscopies. Patient no longer on anticoagulation or Plavix. 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 Not currently on any anticoagulation. Patient continued to have black tarry stools, no bowel movements today. CT abd yesterday was consistent with hemochromatosis, perisplenic and perigastric varices. Qualifiers: GI bleed type/associated pathology: unspecified gastrointestinal hemorrhage type Qualified Code(s): K92.2 - Gastrointestinal hemorrhage, unspecified (4) Chronic kidney disease, stage 3 Current Visit: Yes Status: Chronic Assessment and plan: avoid nephrotoxic agents. (5) Hypothermia Current Visit: Yes Status: Acute Assessment and plan: resolved as of right now. Qualifiers: Encounter type: initial encounter Qualified Code(s): T68.XXXA - Hypothermia , initial encounter (6) Shock Current Visit: Yes Status: Acute Assessment and plan: Possibly cardiogenic shock due to severe myxedema/severe hypothyroidism resolved as of right now. Patient was transferred from ICU. On admission patient was hypotensive, anemic, and hypothermic. Patient was treated for GI bleed, prbc replenished. (7) Myxedema Current Visit: Yes Status: Acute Assessment and plan: severe myxedema due to severe hypothyroidism with cardiogenic shock continue levothyroxine Patient received IV dose in ED due to TSH of 29.5. Patient has not been taking home medications apparently. - patient educated on the importance of taking medications. (8) Pancytopenia Current Visit: Yes Status: Acute Assessment and plan: Chronic pancytopenia. -Patient follows with heme/onc as an outpatient. (9) Atrial fibrillation with slow ventricular response Current Visit: Yes Status: Acute Assessment and plan: Patient with AICD in place. -Hold BB for now. - on rhythm control with amiodarone (10) Metabolic alkalosis Current Visit: Yes Status: Acute Assessment and plan: most likely resolved. Patient has known chornic hx of COPD. Bicarb has been elevated throughout hospital admission. (11) Congestive heart failure (CHF) Current Visit: Yes Status: Acute Assessment and plan: acute systolic CHF exacerbation continue Bumex at discharge Echocardiogram in 04/03/2017 shows LVEF of 45%, mild global LV systolic dysfunction, atypical septal motion consistent with postop status, mildly dilated LV, diastolic dysfunction, dilated RV with normal function, severe biatrial enlargement, s/p mechanical aortic valve, mild tricuspid regurgitation , and mild pulmonary hypertension. Qualifiers: Heart failure type: combined systolic and diastolic Heart failure chronicity: chronic Qualified Code(s): I50.42 - Chronic combined systolic ( congestive) and diastolic (congestive) heart failure (12) Obesity (BMI 30-39.9) Current Visit: Yes Status: Acute Assessment and plan: chronic, educated patient on benefits of losing weight. - Time Spent With Patient Total time spent is greater than 50% in coordination of care (as documented) at patient's floor/unit and/or counseling patient: - Subjective Interval history: Denies any dysuria or hematuria at the moment, denies any chest pain, shortness of breath has improved, denies any abdominal pain or diarrhea, no fevers - Constitutional Vitals: Temp Pulse Resp BP Pulse Ox 98.8 F 61 20 111/60 97 08/17/17 10:32 08/17/17 10:32 08/17/17 10:32 08/17/17 10:32 08/17/17 10:32 General appearance: Present: cooperative, A&O X 3, morbidly obese, pleasant, no acute distress Exam: - Head Head exam: Present: atraumatic, normocephalic - Eye Eye exam: Present: PERRL, conjuntiva pink, sclera anicteric Pupils: Present: PERRL - Neck Neck exam general surgery: Present: supple, trachea midline. Absent: lymphadenopathy - Respiratory Respiratory exam: Present: decreased breath sounds (Diminished breath sounds bilaterally), CTAB. Absent: accessory muscle use, rales, rhonchi, wheezes - Cardiovascular Cardiovascular exam: Present: RRR, +S1, +S2, systolic murmur (Loud systolic murmur). Absent: diastolic murmur, gallop, rubs - GI/Abdominal GI/Abdominal exam: Present: normal bowel sounds, soft, no peritoneal signs. Absent: distended, tenderness - Extremities Exam Extremities exam: Present: pedal edema (+1 pitting edema in both lower extremities), warm, radial pulses palpable and symmetrical. Absent: calf tenderness, cyanotic - Neurological Exam Neurological exam: Present: CN II-XII intact, oriented X3, no focal deficits. Absent: pronater drift, facial droop, speech deficit - Skin Skin exam: Present: dry, intact Internal Medicine: Result - Labs CBC & Chem 7: 08/17/17 03:23 08/17/17 03:23 Labs: Short CBC 08/17/17 Range/Units 03:23 WBC 3.5 L (4.3-11.1) K/mcL Hgb 8.2 L (11.5-15.4) g/dL Hct 26.7 L (35.3-44.9) % Plt Count 53 L (140-400) K/mcL Neutrophils # 2.6 (1.6-8.9) K/mcL BMP 08/17/17 03:23 Sodium 142 Potassium 4.0 Chloride 95 L Carbon Dioxide > 45 H* BUN 28 H Creatinine 1.19 Glucose 85 Calcium 8.7 Liver Function 08/17/17 Range/Units 03:23 Total Bilirubin 0.6 (0.3-1.0) mg/dL AST 10 L (13-39) Units/L ALT 8 (7-52) Units/L Alkaline Phosphatase 71 (34-104) Units/L Albumin 2.6 L (3.5-5.7) g/dL Urine 08/15/17 Range/Units 09:01 Urine Color Red A (Yellow) Urine Clarity Hazy A (Clear) Urine pH 6.5 (5.0-8.0) pH Units Ur Specific [place] 1.018 (1.010-1.025) Urine Protein 100 H (Neg-Trace) mg/dL Urine Glucose (UA) Normal (Normal) mg/dL - ABG Interpretation ABG results: ABG ABG pH 7.34 pH Units (7.32-7.45) 08/07/17 04:14 ABG pCO2 77 mmHg (35-45) H* 08/07/17 04:14 ABG pO2 83 mmHg (85-104) L 08/07/17 04:14 ABG O2 Saturation 95 % (95-98) 08/07/17 04:14 PT/INR, D-dimer PT 10.8 Seconds (9.4-12.1) 08/05/17 16:50 - VTE Documentation of Mechanical Device: Intermittent pneumatic compression device Consult Discharge Plan - Plan Instructions: Bumetanide (By mouth), Alprazolam (By mouth), Potassium Chloride (By mouth), Hypothyroidism (DC), Anemia (GEN) Referrals: Charly Zelaya MD [Partnered Physician] - (had to send a web request office should contact patient with appointment date and time) Francisco Melgar Jr [Primary Care Provider] - Prescriptions: ALPRAZolam [Xanax 0.25 MG Tablet] 0.25 mg PO HS 5 Days #5 tablet Bumetanide [Bumex] 0.5 mg PO BIDDIURETIC #60 tablet Potassium Chloride [Klor-Con Sprinkle] 10 meq PO DAILY #30 capsule.er
[2017-08-17] MEDS: Levofloxacin 500 MG/100 ML 500 MG/100 ML BAG IVPB SCH (12:03)
[2017-08-17] MEDS: rOPINIRole 1 MG TABLET PO SCH (21:15)
[2017-08-17] MEDS: ALPRAZolam 0.5 MG TABLET PO SCH (21:16)
[2017-08-17] MEDS: FLUoxetine 20 MG CAPSULE PO SCH (21:16)
[2017-08-18] MEDS: Ipratropium/Albuterol Neb 3 ML AER SCH ×7 (00:18→23:29)
[2017-08-18 04:11] LABS: Basophils % 0.3 %
[2017-08-18 04:13] LABS: Eosinophils # 0.1 K/mcL (0.0-0.6); Eosinophils % 2.2 %; Hematocrit 25.9 % (35.3-44.9); Hemoglobin 7.7 g/dL (11.5-15.4); Immature Granulocytes % 0.6 % (0-4); Immature Platelets 6.1 % (1.1-6.1); Lymphocytes # 0.3 K/mcL (0.6-4.6); Lymphocytes % 10.5 %; Mean Corpuscular HGB Conc 29.7 g/dL (31.6-35.5); Mean Corpuscular Hemoglobin 29.1 pg (28.0-33.3); Mean Corpuscular Volume 97.7 fL (83.0-100.0); Mean Platelet Volume 11.2 fL (9.4-12.4); Monocytes # 0.4 K/mcL (0.0-1.3); Monocytes % 12.4 %; Neutrophils # 2.4 K/mcL (1.6-8.9); Red Blood Count 2.65 M/mcL (3.82-4.97); Red Cell Distribution Width 16.5 % (11.5-14.5)
[2017-08-18 04:14] LABS: Platelet Count 62 K/mcL (140-400)
[2017-08-18 04:28] LABS: Alanine Aminotransferase 8 Units/L (7-52); Albumin 2.6 g/dL (3.5-5.7); Albumin/Globulin Ratio 1.2 (1.1-2.2); Alkaline Phosphatase 69 Units/L (34-104); Aspartate Amino Transferase 10 Units/L (13-39); BUN/Creatinine Ratio 22 (6-26); Bilirubin,Total 0.5 mg/dL (0.3-1.0); Blood Urea Nitrogen 26 mg/dL (8-23); Calcium 8.6 mg/dL (8.6-10.3); Carbon Dioxide > 45 mEq/L (23-29); Chloride 94 mEq/L (98-107); Globulin 2.1 g/dL (2.4-3.5); Glucose 78 mg/dL (70-105); Osmolality,Calculated 298 (280-300); Potassium 3.5 mEq/L (3.5-5.1); Sodium 142 mEq/L (136-145); Total Protein 4.7 g/dL (6.4-8.9); eGFR For African Americans 54 (> 60); eGFR For Non-African Americans 45 (> 60)
[2017-08-18] MEDS: Pantoprazole 40 MG VIAL IVP SCH ×2 (05:59→17:40)
[2017-08-18] MEDS: Sucralfate 1 GM TABLET PO SCH ×4 (08:01→21:00)
[2017-08-18] MEDS: Folic Acid 1 MG TABLET PO SCH (08:01)
[2017-08-18] MEDS: *HR* Amiodarone 200 MG TABLET PO SCH (08:02)
[2017-08-18] MEDS: Bumetanide 1 MG/4 ML VIAL IVP SCH ×2 (08:03→21:02)
[2017-08-18] MEDS: cefTRIAXone 1,000 MG in Water for inj. (sterile) 20 ML 10 ML IVPB SCH (08:09)
[2017-08-18] MEDS: Budesonide/Formoterol 80/4.5 MDI IH SCH ×2 (08:27→19:48)
--- NOTE | 2017-08-18 09:08 | Internal Med Progress Note ---
Date of Encounter: 08/18/17 Time of Encounter: 09:05 - Assessment and plan (1) Acute blood loss anemia Current Visit: Yes Status: Acute Assessment and plan: Acute blood loss anemia likely secondary to GI bleed with recent history of AVMs which were cauterized and also new onset hematuria Hb dropped down to 7.7 Has been transfused with 3 units of blood total, transfuse again today GI was reconsulted, no EGD recommended , recommending a capsule study as an outpatient multiple angiodysplastic lesions found on prior endoscopies. Patient no longer on anticoagulation or Plavix. - continue carafate, Protonix IV (2) Hematuria Current Visit: Yes Status: Acute Assessment and plan: Hematuria possibly secondary to UTI Contine Levaquin day 2 and discontinue Rocephin at day #2 Culture pending growing Klebsiella and enteroccocus, sensitivity for enterococcus is pending Qualifiers: Qualified Code(s): R31.9 - Hematuria, unspecified (3) Congestive heart failure (CHF) Current Visit: Yes Status: Acute Assessment and plan: acute systolic CHF exacerbation Still overloaded Increased Bumex IV to 1 mg twice a day continue Bumex at discharge Echocardiogram in 04/03/2017 shows LVEF of 45%, mild global LV systolic dysfunction, atypical septal motion consistent with postop status, mildly dilated LV, diastolic dysfunction, dilated RV with normal function, severe biatrial enlargement, s/p mechanical aortic valve, mild tricuspid regurgitation , and mild pulmonary hypertension. 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 Not currently on any anticoagulation. Patient continued to have black tarry stools, no bowel movements today. CT abd yesterday was consistent with hemochromatosis, perisplenic and perigastric varices. Qualifiers: GI bleed type/associated pathology: unspecified gastrointestinal hemorrhage type Qualified Code(s): K92.2 - Gastrointestinal hemorrhage, unspecified (5) Chronic kidney disease, stage 3 Current Visit: Yes Status: Chronic Assessment and plan: avoid nephrotoxic agents. (6) Hypothermia Current Visit: Yes Status: Acute Assessment and plan: resolved as of right now. Qualifiers: Encounter type: initial encounter Qualified Code(s): T68.XXXA - Hypothermia , initial encounter (7) Shock Current Visit: Yes Status: Acute Assessment and plan: Possibly cardiogenic shock due to severe myxedema/severe hypothyroidism resolved as of right now. Patient was transferred from ICU. On admission patient was hypotensive, anemic, and hypothermic. Patient was treated for GI bleed, prbc replenished. (8) Myxedema Current Visit: Yes Status: Acute Assessment and plan: severe myxedema due to severe hypothyroidism with cardiogenic shock continue levothyroxine Patient received IV dose in ED due to TSH of 29.5. Patient has not been taking home medications apparently. - patient educated on the importance of taking medications. (9) Pancytopenia Current Visit: Yes Status: Acute Assessment and plan: Chronic pancytopenia. -Patient follows with heme/onc as an outpatient. (10) Atrial fibrillation with slow ventricular response Current Visit: Yes Status: Acute Assessment and plan: Patient with AICD in place. -Hold BB for now. - on rhythm control with amiodarone (11) Metabolic alkalosis Current Visit: Yes Status: Acute Assessment and plan: most likely resolved. Patient has known chornic hx of COPD. Bicarb has been elevated throughout hospital admission. (12) Obesity (BMI 30-39.9) Current Visit: Yes Status: Acute Assessment and plan: chronic, educated patient on benefits of losing weight. - Time Spent With Patient Total time spent is greater than 50% in coordination of care (as documented) at patient's floor/unit and/or counseling patient: - Subjective Interval history: Fatigued at times. Denies any dysuria or hematuria , denies any chest pain, shortness of breath has improved, denies any abdominal pain or diarrhea, no fevers - Constitutional Vitals: Temp Pulse Resp BP Pulse Ox 97.6 F 58 17 89/48 100 08/18/17 07:37 08/18/17 07:37 08/18/17 08:29 08/18/17 07:37 08/18/17 08:29 General appearance: Present: cooperative, A&O X 3, morbidly obese, pleasant, no acute distress Exam: - Head Head exam: Present: atraumatic, normocephalic - Eye Eye exam: Present: PERRL, conjuntiva pink, sclera anicteric Pupils: Present: PERRL - Neck Neck exam general surgery: Present: supple, trachea midline. Absent: lymphadenopathy - Respiratory Respiratory exam: Present: decreased breath sounds (Diminished breath sounds bilaterally), CTAB. Absent: accessory muscle use, rales, rhonchi, wheezes - Cardiovascular Cardiovascular exam: Present: RRR, +S1, +S2, systolic murmur (Loud systolic murmur). Absent: diastolic murmur, gallop, rubs - GI/Abdominal GI/Abdominal exam: Present: normal bowel sounds, soft, no peritoneal signs. Absent: distended, tenderness - Extremities Exam Extremities exam: Present: pedal edema (+1 pitting edema in both lower extremities), warm, radial pulses palpable and symmetrical. Absent: calf tenderness, cyanotic - Neurological Exam Neurological exam: Present: CN II-XII intact, oriented X3, no focal deficits. Absent: pronater drift, facial droop, speech deficit - Skin Skin exam: Present: dry, intact Internal Medicine: Result - Labs CBC & Chem 7: 08/18/17 03:29 08/18/17 03:29 Labs: Short CBC 08/18/17 Range/Units 03:29 WBC 3.2 L (4.3-11.1) K/mcL Hgb 7.7 L (11.5-15.4) g/dL Hct 25.9 L (35.3-44.9) % Plt Count 62 L (140-400) K/mcL Neutrophils # 2.4 (1.6-8.9) K/mcL BMP 08/18/17 03:29 Sodium 142 Potassium 3.5 Chloride 94 L Carbon Dioxide > 45 H* BUN 26 H Creatinine 1.17 Glucose 78 Calcium 8.6 Liver Function 08/18/17 Range/Units 03:29 Total Bilirubin 0.5 (0.3-1.0) mg/dL AST 10 L (13-39) Units/L ALT 8 (7-52) Units/L Alkaline Phosphatase 69 (34-104) Units/L Albumin 2.6 L (3.5-5.7) g/dL - ABG Interpretation ABG results: ABG ABG pH 7.34 pH Units (7.32-7.45) 08/07/17 04:14 ABG pCO2 77 mmHg (35-45) H* 08/07/17 04:14 ABG pO2 83 mmHg (85-104) L 08/07/17 04:14 ABG O2 Saturation 95 % (95-98) 08/07/17 04:14 PT/INR, D-dimer PT 10.8 Seconds (9.4-12.1) 08/05/17 16:50 - VTE Documentation of Mechanical Device: Intermittent pneumatic compression device Consult Discharge Plan - Plan Instructions: Bumetanide (By mouth), Alprazolam (By mouth), Potassium Chloride (By mouth), Hypothyroidism (DC), Anemia (GEN) Referrals: Charly Zelaya MD [Partnered Physician] - (had to send a web request office should contact patient with appointment date and time) Francisco Melgar Jr [Primary Care Provider] - Prescriptions: ALPRAZolam [Xanax 0.25 MG Tablet] 0.25 mg PO HS 5 Days #5 tablet Bumetanide [Bumex] 0.5 mg PO BIDDIURETIC #60 tablet Potassium Chloride [Klor-Con Sprinkle] 10 meq PO DAILY #30 capsule.er
[2017-08-18] MEDS ORDERED: 0.9 % Sodium Chloride 250 ML ONE (12:10)
[2017-08-18] MEDS: Linezolid 600 MG TABLET PO SCH (17:44)
[2017-08-18] MEDS: rOPINIRole 1 MG TABLET PO SCH (20:59)
[2017-08-18] MEDS: ALPRAZolam 0.5 MG TABLET PO SCH (21:00)
[2017-08-18] MEDS ORDERED: FLUoxetine HCl 10 MG CAPSULE PO SCH (21:00)
[2017-08-19] MEDS: Ipratropium/Albuterol Neb 3 ML AER SCH ×3 (03:48→11:39)
[2017-08-19] MEDS: Pantoprazole 40 MG VIAL IVP SCH (06:25)
[2017-08-19 07:35] LABS: Hematocrit 28.1 % (35.3-44.9); Hemoglobin 8.5 g/dL (11.5-15.4); Immature Platelets 6.6 % (1.1-6.1); Mean Corpuscular HGB Conc 30.2 g/dL (31.6-35.5); Mean Corpuscular Hemoglobin 29.3 pg (28.0-33.3); Mean Corpuscular Volume 96.9 fL (83.0-100.0); Mean Platelet Volume 11.5 fL (9.4-12.4); Red Blood Count 2.9 M/mcL (3.82-4.97); Red Cell Distribution Width 16.3 % (11.5-14.5)
[2017-08-19 07:36] LABS: Calcium 8.3 mg/dL (8.6-10.3); Potassium 3.3 mEq/L (3.5-5.1)
[2017-08-19] MEDS: Budesonide/Formoterol 80/4.5 MDI IH SCH (07:43)
[2017-08-19] MEDS: Linezolid 600 MG TABLET PO SCH (08:54)
[2017-08-19] MEDS: Folic Acid 1 MG TABLET PO SCH (08:54)
[2017-08-19] MEDS: Sucralfate 1 GM TABLET PO SCH ×2 (08:54→12:27)
[2017-08-19] MEDS: *HR* Amiodarone 200 MG TABLET PO SCH (08:54)
[2017-08-19] MEDS: Bumetanide 1 MG/4 ML VIAL IVP SCH (08:55)
--- NOTE | 2017-08-19 09:07 | Discharge Summary ---
<CyndiZiyadFrankie T - Last Filed: 08/19/17 16:17> Orders not resulted at time of discharge: Pending orders 08/18/17 12:22 Fecal Hemoccult [Occult Blood,Stool] [BF] Routine Date of Encounter: 08/19/17 - Discharge Diagnosis (1) Acute blood loss anemia Status: Acute (2) GI bleed Status: Acute Qualifiers: GI bleed type/associated pathology: unspecified gastrointestinal hemorrhage type Qualified Code(s): K92.2 - Gastrointestinal hemorrhage, unspecified (3) Chronic kidney disease, stage 3 Status: Chronic (4) Hypothermia Status: Acute Qualifiers: Encounter type: initial encounter Qualified Code(s): T68.XXXA - Hypothermia , initial encounter (5) Shock Status: Acute (6) Myxedema Status: Acute (7) Pancytopenia Status: Acute (8) Atrial fibrillation with slow ventricular response Status: Acute (9) Metabolic alkalosis Status: Acute (10) Congestive heart failure (CHF) Status: Acute Qualifiers: Heart failure type: combined systolic and diastolic Heart failure chronicity: chronic Qualified Code(s): I50.42 - Chronic combined systolic ( congestive) and diastolic (congestive) heart failure (11) Obesity (BMI 30-39.9) Status: Acute (12) Hematuria Status: Acute Hospital course: Ms. Higginbotham is a 77 year old female - Time Spent with Patient Total time spent providing and/or coordinating discharge services: - Discharge Medications Prescriptions: ALPRAZolam [Xanax 0.25 MG Tablet] 0.25 mg PO HS 5 Days #5 tablet Bumetanide [Bumex] 0.5 mg PO BIDDIURETIC #60 tablet levoFLOXacin [Levaquin] 750 mg PO Q48H 4 Days #2 tablet Linezolid [Zyvox] 600 mg PO BID #8 tablet Potassium Chloride [Klor-Con Sprinkle] 10 meq PO DAILY #30 capsule.er Home Medications: Allopurinol [Zyloprim 300 MG] 300 mg PO DAILY 01/12/16 [History] Calcium Carbonate [Calcium] 1,500 mg PO BID 04/22/16 [History] Oxygen 4 l NS AD 04/22/16 [History] Folic Acid 1 mg PO DAILY 05/28/16 [History] Ranitidine HCl [Acid Visual Merchandising Specialist] 150 mg PO BID 07/12/16 [History] Albuterol Sulfate [Ventolin Hfa] 1 - 2 puff IH Q4-6H PRN 10/14/16 [History] Umeclidinium [place] [Incruse Ellipta] 1 puff IH QPM 10/14/16 [History] Sacubitril/Valsartan 24/26 mg [Entresto 24 mg-26 mg Tablet] 1 tab PO BID [History] Fluticasone/Vilanterol [Breo Ellipta 200-25 Mcg INH] 1 each IH BID 06/16/17 [ History] Ondansetron ODT [Zofran ODT] 4 mg SL Q8H PRN 06/16/17 [History] Amiodarone [Cordarone] 200 mg PO DAILY #0 06/19/17 [Rx] FLUoxetine HCl [Prozac] 20 mg PO HS 07/08/17 [History] Ferrous Gluconate 324 mg PO 1200 07/08/17 [History] Ropinirole HCl [Requip] 4 mg PO HS 07/09/17 [History] Omeprazole [PriLOSEC] 40 mg PO BID capsule. 07/11/17 [Rx] Sucralfate [Carafate] 1 gm PO QIDAC tablet 07/11/17 [Rx] Levothyroxine [Synthroid] 150 mcg PO DAILY@0630 tablet 07/28/17 [Rx] ALPRAZolam [Xanax 0.25 MG Tablet] 0.25 mg PO HS 5 Days #5 tablet 08/13/17 [Rx] Bumetanide [Bumex] 0.5 mg PO BIDDIURETIC #60 tablet 08/13/17 [Rx] Potassium Chloride [Klor-Con Sprinkle] 10 meq PO DAILY #30 capsule.er 08/13/17 [ Rx] Linezolid [Zyvox] 600 mg PO BID #8 tablet 08/19/17 [Rx] levoFLOXacin [Levaquin] 750 mg PO Q48H 4 Days #2 tablet 08/19/17 [Rx] Allergies/Adverse Reactions: 3 Allergy/AdvReac Type Severity Reaction Status Date / Time Penicillins Allergy Hives Verified 08/05/17 14:15 Sulfa (Sulfonamide Allergy Hives Verified 08/05/17 14:15 Antibiotics) gabapentin AdvReac Hallucinati Verified 08/05/17 14:15 ng Oxycodone [From Percocet] AdvReac Hallucinati Verified 08/05/17 14:15 ng Date of admission: 08/05/17 20:58 Primary care physician: Francisco Melgar Jr Consults: 08/05/17 23:06 Consult to Casting Molder [CONS] Routine Reason for SW Consult: patient is from [facility]. 08/06/17 01:43 Consult to Critical Care [CONS] Routine Consulting Provider: Pulm Crit Care [facility] [place] Reason for Consult: Shock Call Completed: No 08/12/17 09:15 Consult to Occupational Therapy [CONS] Routine Comment: Evaluate, develop and implement POC Reason for Consult: assess mobility Does patient have active BEDREST order?: No Is patient medically & hemodynamically stable?: Yes Patient assessed for mobility or mobilized this visit?: Yes Consult to Physical Therapy [CONS] Routine Comment: Evaluate, develop and implement POC Reason for Consult: assess patient mobility Does patient have active BEDREST order?: No Is patient medically & hemodynamically stable?: Yes Patient assessed for mobility or mobilized this visit?: Yes 08/12/17 09:59 Consult to Nurse Navigator [CONS] Routine Comment: CHF, NYHA class 1 08/14/17 08:19 Consult to Gastroenterology [CONS] Routine Consulting Provider: Gastroenterelizabeth Mcmillan Reason for Consult: bloody stools Call Completed: Yes 08/14/17 08:51 Consult to PICC team [Consult to Invasive Line Access Team] [CONS] Routine Reason for Consult: limited vascular access Line Type: EPIV - Constitutional Vitals: Temp Pulse Resp BP Pulse Ox 97.6 F 59 16 105/62 91 08/19/17 07:02 08/19/17 11:00 08/19/17 11:39 08/19/17 11:00 08/19/17 11:39 - Patient Status Disposition: Transfer SNF Condition: Serious - Discharge Instructions Instructions: Bumetanide (By mouth), Alprazolam (By mouth), Potassium Chloride (By mouth), Hypothyroidism (DC), Anemia (GEN) Follow Up With: Charly Zelaya MD [Partnered Physician] - (had to send a web request office should contact patient with appointment date and time) Francisco Melgar Jr [Primary Care Provider] - - Attending Attestation I examined this patient and my medical decision-making was reviewed with the Resident Physician. I agree with the documented findings, disposition and treatment plan as described except to the extent set forth below. Seen and examined at the bedside. 77-year-old female was admitted and managed for acute blood loss anemia secondary to GI bleed from AV malformations, Klebsiella and enterococcus urinary tract infection, acute on chronic CHF with reduced ejection fraction, chronic kidney disease stage III, hyperlipoidemia on admission, max edema and atrial fibrillation. Her acute issues has resolved and her hemoglobin is stable. Per GI evaluation, patient did not need any further intervention. She has no new complaints this morning and is physically stable. Discharged back to [facility] to complete 5 -7 days of oral antibiotics for urinary tract infection. Ensure gastroenterology follow-up as outpatient. Rest of details is as documented in the resident physicians documentation. <Stanley Jiménez - Last Filed: 08/19/17 17:37> Orders not resulted at time of discharge: Pending orders 08/18/17 12:22 Fecal Hemoccult [Occult Blood,Stool] [BF] Routine Date of Encounter: 08/19/17 Time of Encounter: 09:15 - Discharge Diagnosis (1) Myxedema Priority: Primary Status: Acute (2) Acute blood loss anemia Priority: Primary Status: Acute (3) GI bleed Priority: Primary Status: Acute Qualifiers: GI bleed type/associated pathology: unspecified gastrointestinal hemorrhage type Qualified Code(s): K92.2 - Gastrointestinal hemorrhage, unspecified (4) Shock Priority: Primary Status: Acute (5) Chronic kidney disease, stage 3 Priority: Secondary Status: Chronic (6) Hypothermia Priority: Secondary Status: Acute Qualifiers: Encounter type: initial encounter Qualified Code(s): T68.XXXA - Hypothermia , initial encounter (7) Pancytopenia Priority: Secondary Status: Acute (8) Atrial fibrillation with slow ventricular response Priority: Secondary Status: Acute (9) Metabolic alkalosis Priority: Secondary Status: Acute (10) Congestive heart failure (CHF) Priority: Secondary Status: Acute Qualifiers: Heart failure type: combined systolic and diastolic Heart failure chronicity: chronic Qualified Code(s): I50.42 - Chronic combined systolic ( congestive) and diastolic (congestive) heart failure (11) Obesity (BMI 30-39.9) Priority: Secondary Status: Acute (12) Hematuria Priority: Secondary Status: Acute Hospital course: Ms. Higginbotham is a 77 year old female with past medical history of atrial fibrillation, hypothyroidism, history of GIB, breast cancer with left mastectomy , pacemaker with ICD, CHF, COPD, GERD, CKD stage III, valvular heart disease who presented to ED for symptomatic anemia with associated hypotension while at [employer]. In ED, patient was hypothermic and hypotensive. TSh was markedly elevated and she was given dose of IV thyroxine, on-time dose of steroids. She was started on IVF and received 2 units of PRBCs. She was admitted to ICU for further management. Myxedema secondary to severe hypothyroidism improved with levothyroxine therapy. Hypotension secondary to cardiogenic shock and acute CHF exacerbation improved with Levophed and continues diuresis. Patient has received 5 unites of PRBCs since admission and hemoglobin is stable 8.2/7.7/8.5 the last 3 days and back to baseline. Plan for discharged on 08/13/17 but patient had episode of hallucinations and tarry stools. GI was consulted, which recommended capsule study as outpatient. CT consistent with hemochromatosis, perisplenic and perigastric varices. UA demonstrated hematuria secondary to UTI. Today, patient is back to baseline. Symptoms have resolved. Urine culture + for Kelbsiella and enterococcus. Mental status improved since starting antibiotics. Plan to discharge her back to [facility] with Levaquin and Rocephin for four more days for continuation of UTI treatment. - Time Spent with Patient Total time spent providing and/or coordinating discharge services: Greater than 30 minutes Date of admission: 08/05/17 20:58 Primary care physician: Francisco Melgar Jr Consults: 08/05/17 23:06 Consult to Casting Molder [CONS] Routine Reason for SW Consult: patient is from [facility]. 08/06/17 01:43 Consult to Critical Care [CONS] Routine Consulting Provider: Pulm Crit Care & Sleep [place] Reason for Consult: Shock Call Completed: No 08/12/17 09:15 Consult to Occupational Therapy [CONS] Routine Comment: Evaluate, develop and implement POC Reason for Consult: assess mobility Does patient have active BEDREST order?: No Is patient medically & hemodynamically stable?: Yes Patient assessed for mobility or mobilized this visit?: Yes Consult to Physical Therapy [CONS] Routine Comment: Evaluate, develop and implement POC Reason for Consult: assess patient mobility Does patient have active BEDREST order?: No Is patient medically & hemodynamically stable?: Yes Patient assessed for mobility or mobilized this visit?: Yes 08/12/17 09:59 Consult to Nurse Navigator [CONS] Routine Comment: CHF, NYHA class 1 08/14/17 08:19 Consult to Gastroenterology [CONS] Routine Consulting Provider: Lashay Mcmillan Reason for Consult: bloody stools Call Completed: Yes 08/14/17 08:51 Consult to PICC team [Consult to Invasive Line Access Team] [CONS] Routine Reason for Consult: limited vascular access Line Type: EPIV Discharging clinician: Stanley Jiménez Anticipated date of discharge: 08/19/17 - Constitutional Vitals: Temp Pulse Resp BP Pulse Ox 97.6 F 90 16 109/61 90 08/19/17 07:02 08/19/17 07:02 08/19/17 07:43 08/19/17 07:02 08/19/17 07:43 General appearance: Present: cooperative, A&O X 3, morbidly obese, pleasant, no acute distress - Head Head exam: Present: atraumatic, normocephalic - Eye Eye exam: Present: PERRL, conjuntiva pink, sclera anicteric Pupils: Present: PERRL - Neck Neck exam general surgery: Present: supple, trachea midline. Absent: lymphadenopathy - Respiratory Respiratory exam: Present: CTAB. Absent: accessory muscle use, rales, rhonchi, wheezes - Cardiovascular Cardiovascular exam: Present: RRR, +S1, +S2. Absent: diastolic murmur, gallop, rubs, systolic murmur - GI/Abdominal GI/Abdominal exam: Present: normal bowel sounds, soft, no peritoneal signs. Absent: distended, tenderness - Extremities Exam Extremities exam: Present: warm, radial pulses palpable and symmetrical. Absent : calf tenderness, cyanotic, pedal edema - Neurological Exam Neurological exam: Present: CN II-XII intact, oriented X3, no focal deficits. Absent: pronater drift, facial droop, speech deficit - Skin Skin exam: Present: dry, intact - Patient Status Overall status at discharge: patient is progressing back to baseline - Diet and Activity Activity: increase activity as tolerated Diet: advance to your usual diet - VTE Documentation of Mechanical Device: Intermittent pneumatic compression device
[2017-08-19 11:15] VITALS: BP 105/62
[2017-08-19] MEDS: Levofloxacin 500 MG/100 ML 500 MG/100 ML BAG IVPB SCH (12:27)
[2017-08-21] MEDS ORDERED: levoFLOXacin 750 MG TABLET PO SCH (12:00)
== END 2017-08-19 15:16 | DRG 291 ==
LOC: EMEROO 15:50 → 3ANU 15:50 → OBSVTOIN 20:58 → SUATTDRO 20:58 → 2NNU 21:59 → ICNU 08-06 01:57 → 2NENU 08-11 18:55
PROVIDERS: ADMIT Internal Medicine; ATTEND Internal Medicine

== ENCOUNTER 2017-08-25 15:46 | Inpatient (IN) ==
[2017-08-25] MEDS ORDERED: 0.9 % Sodium Chloride 1,000 ML IVC ONE (16:03)
--- NOTE | 2017-08-25 16:03 | Emergency Department Note ---
Disposition Clinical Impression: Melena, Anemia due to GI blood loss, Acute kidney injury, Hypotension due to blood loss Disposition: Admitted As Inpatient Condition: Fair Referrals: Francisco Melgar Jr [Primary Care Provider] - Forms: ED Satisfaction Letter Time of Disposition: 18:02 General Adult HPI - General Stated complaint: Tarry Stools Time Seen by Provider: 08/25/17 15:50 Source: patient, EMS Mode of arrival: EMS Limitations: no limitations Nursing Notes Reviewed: Yes Vital Signs Reviewed: Yes - History of Present Illness HPI Narrative: 77-year-old female history of G.I. bleed anemia presents an emergency department via EMS for tarry stools. Initially when I asked the patient why she is here she cannot give an answer why because no one informed her why she needed to be evaluated. She is alert and oriented person place and time. She is a resident at [facility]. Her cousin is at bedside and assists with the history. Patient does admit to passing black stools when asked. She has a history of G.I. bleed and sees Dr. Hines oncologist. She is required multiple workups as well as transfusions in the past. She was seen and evaluated at the cancer center earlier today and reportedly blood samples were lost. Patient denies any complaints at this time such as headache, chest pain, shortness of breath. Denies any hematemesis, hemoptysis, nausea, vomiting, abdominal pain. She has been experiencing some diarrhea. She denies any anticoagulants used. Patient was recently diagnosed with a left arm deep vein thrombosis. She does not take anything for given her G.I. bleed history. Also history of breast cancer to the left side as well. - Related Data Home Medications Medication Instructions Recorded Confirmed RX: Allopurinol [Zyloprim 300 MG] 300 mg PO DAILY 01/12/16 08/25/17 RX: Calcium Carbonate [Calcium] 1,500 mg PO BID 04/22/16 08/25/17 RX: Oxygen 4 l NS AD 04/22/16 08/25/17 RX: Folic Acid 1 mg PO DAILY 05/28/16 08/25/17 RX: Ranitidine HCl [Acid Executive Meeting Manager] 150 mg PO BID 07/12/16 08/25/17 RX: Albuterol Sulfate [Ventolin 1 - 2 puff IH Q4-6H PRN 10/14/16 08/25/17 Hfa] RX: Umeclidinium [place] [Incruse 1 puff IH QPM 10/14/16 08/25/17 Ellipta] RX: Sacubitril/Valsartan 24/26 mg 1 tab PO BID 06/03/17 08/25/17 [Entresto 24 mg-26 mg Tablet] RX: Fluticasone/Vilanterol [Breo 1 each IH BID 06/16/17 08/25/17 Ellipta 200-25 Mcg INH] RX: Ondansetron ODT [Zofran ODT] 4 mg SL Q8H PRN 06/16/17 08/25/17 RX: Ferrous Gluconate 324 mg PO 1200 07/08/17 08/25/17 RX: Ropinirole HCl [Requip] 4 mg PO HS 07/09/17 08/25/17 Citalopram [CeleXA] 20 mg PO DAILY 08/25/17 08/25/17 Furosemide [Lasix] 40 mg PO Q48H 08/25/17 08/25/17 Previous Rx's Medication Instructions Recorded RX: Amiodarone [Cordarone] 200 mg PO DAILY #0 06/19/17 RX: Omeprazole [PriLOSEC] 40 mg PO BID capsule. 07/11/17 RX: Sucralfate [Carafate] 1 gm PO QIDAC tablet 07/11/17 RX: Levothyroxine [Synthroid] 150 mcg PO DAILY@0630 tablet 07/28/17 Bumetanide [Bumex] 0.5 mg PO BIDDIURETIC #60 tablet 08/13/17 RX: ALPRAZolam [Xanax 0.25 MG 0.25 mg PO HS 5 Days #5 tablet 08/13/17 Tablet] RX: Potassium Chloride [Klor-Con 10 meq PO DAILY #30 capsule.er 08/13/17 Sprinkle] Allergies Allergy/AdvReac Type Severity Reaction Status Date / Time Penicillins Allergy Hives Verified 08/25/17 10:52 Sulfa (Sulfonamide Allergy Hives Verified 08/25/17 10:52 Antibiotics) gabapentin AdvReac Hallucinati Verified 08/25/17 10:52 ng Oxycodone [From Percocet] AdvReac Hallucinati Verified 08/25/17 10:52 ng All systems ED: reviewed and negative except as stated. Review of Systems: As Per HPI Constitutional: Denies: fever, chills, weakness ENT ED: Denies: congestion Cardiovascular: Denies: chest pain Respiratory: Denies: cough, dyspnea Gastrointestinal: Reports: melena, hematochezia. Denies: abdominal pain, nausea , vomiting Genitourinary: Denies: dysuria Integumentary: Denies: rash, abrasion Neurological: Denies: headache Past Medical History - Past Medical History Attestation: Yes The following information was validated with the patient. Source: patient Medical history: Reports: asthma, atrial fibrillation, cancer, cardiomyopathy, CHF, COPD, GERD, GI bleed, renal disease, thyroid disease, valvular heart disease Surgical history: Reports: appendectomy, breast surgery, cancer surgery, heart valve replacement, hysterectomy, pacemaker/AICD Psychiatric history: Reports: anxiety, depression [employer]ER [employer] history: Reports: no CONTRO[employer]ER [employer] history - Social History Smoking Status: Former smoker Smokeless Tobacco Status: No Alcohol use: Reports: none Drug use: Reports: none Physical Exam - General Limitations: no limitations General appearance: alert, in no apparent distress, obese, other (ANASARCA) - Head Head exam: atraumatic, normocephalic, normal inspection - Eye Eye exam: Present: normal appearance, PERRL, EOMI, other (Pale conjunctiva) - ENT ENT exam: normal exam, normal oropharynx, mucous membranes dry - Neck Neck exam: Present: normal inspection, full ROM, trachea midline - Chest Chest inspection: Present: normal inspection, symmetric chest wall rise - Respiratory Respiratory exam: Present: wheezes, prolonged expiratory phase, other (on 4L NC) . Absent: respiratory distress - Cardiovascular Cardiovascular exam: Present: regular rate, normal rhythm, normal heart sounds - Abdominal Exam Abdominal exam: Present: soft, Non-Tender, normal bowel sounds. Absent: tenderness, distention, guarding, rebound, rigidity - Extremities Exam Extremities exam: Present: normal inspection, full ROM, pedal edema (SYMMETRICAL ), other. Absent: tenderness, calf tenderness - Neurological Exam Neurological exam: Present: alert, oriented X3 - Expanded Neurological Exam Patient oriented to: Present: person, place, time - Skin Skin exam: Present: warm, dry, intact, pallor. Absent: rash, cyanosis, diaphoresis Course Course Narrative: Patient is pale appearing. Pale conjunctiva. History of G.I. bleed with melena. Rectal examination normal tone with black tarry stool that was hemoccult positive. Abdomen is soft nontender nondistended. She is awake alert and oriented to person place and time. She is hard of hearing. Lungs wheezing bilaterally. She denies any shortness of breath more than usual. No cough. No recent illness. Will check her hemoglobin as well as a type and screen for possible transfusion given her history. Unfortunately she has an IV in the right arm in her left arm is compromised pressures in the left leg are systolic 90. She is mentating well. - Reevaluation(s) Reevaluation #1: Hemoglobin 7.6. Because of her active bleeding and hypotension she will receive 1 unit blood transfusion. Risks and benefits discussed with the patient as well with her cousin in the room. I offered to speak about the risks but with her history of prior transfusions she deferred. She has received 8 blood transfusions this year alone. Creatinine is elevated 2.7. This is twice her baseline. She has been as high as 4 in the past. No leukocytosis. Her BUN is elevated 46. She will be placed on a proton extremity as well. Given the wheezing to be treated with the DuoNeb treatment. I reviewed her prior endoscopy, last performed 07/10/2017 where was found to have to nonbleeding polyps otherwise colon was normal. This was performed by gastroenterology Dr. Rojo. Also of note the patient and cousin do not wish to return to [facility] on discharge. Our perinatal social worker in the emergency department some available at this time will pass along to inpatient hospitalist team. Oppression is G.I. bleed anemia, chronic anemia, hypotension, acute kidney injury. Patient remains in stable condition. Blood products are not ready. - Consultations Consultation #1: Spoke with on-call hospitalist gayle Thomas to admit for GI bleed anemia, melena, acute kidney injury, hypotension. No further orders at this time Time: 18:00 Consultation #2: Spoke to gastroenterology Dr. Rojo, he is familiar with this patient states that have extensively worked her up without any acute source. Will be happy to consult on the floor. No acute intervention at this time. Time: 18:06 Vital Signs Temperature 97.5 F L 08/25/17 16:01 Pulse Rate 51 08/25/17 16:01 Respiratory Rate 18 08/25/17 16:01 Blood Pressure 77/38 08/25/17 16:01 O2 Sat by Pulse Oximetry 98 08/25/17 16:01 Temperature 97.4 F L 08/25/17 19:26 Pulse Rate 76 08/25/17 19:26 Respiratory Rate 17 08/25/17 19:26 Blood Pressure 79/56 08/25/17 19:26 O2 Sat by Pulse Oximetry 92 08/25/17 19:26 Oxygen Delivery Oxygen Delivery Nasal Cannula Medical Decision Making - MDM Narrative Medical decision making narrative: Patient was discussed with my attending physician who agrees with ED management and final disposition. They independently evaluated the patient. Please refer to their attestation to this encounter for additional information. This note was generated by [employer] voice recognition software and as a result grammatical or spelling errors may occur using this program. - Medical Records Medical records reviewed: Yes I reviewed the patient's medical records. - Lab Data Lab results reviewed: Yes I reviewed the patient's lab results. Result diagrams: 08/25/17 16:14 08/25/17 16:14 Lab Results 08/25/17 08/25/17 08/25/17 Range/Units 16:14 16:14 16:14 WBC 5.8 (4.3-11.1) K/mcL RBC 2.52 L (3.82-4.97) M/mcL Hgb 7.6 L (11.5-15.4) g/dL Hct 24.7 L (35.3-44.9) % MCV 98.0 (83.0-100.0) fL MCH 30.2 (28.0-33.3) pg MCHC 30.8 L (31.6-35.5) g/dL RDW 16.0 H (11.5-14.5) % Plt Count 56 L (140-400) K/mcL MPV 11.2 (9.4-12.4) fL Immature Gran % 0.5 (0-4) % Seg Neutrophils % 87.8 % Lymphocytes % 6.1 % Monocytes % 4.2 % Eosinophils % 1.2 % Basophils % 0.2 % Neutrophils # 5.1 (1.6-8.9) K/mcL Lymphocytes # 0.4 L (0.6-4.6) K/mcL Monocytes # 0.2 (0.0-1.3) K/mcL Eosinophils # 0.1 (0.0-0.6) K/mcL Basophils # 0.0 (0.0-0.2) K/mcL Immature Plt Fraction 4.6 (1.1-6.1) % PT 13.0 H (9.4-12.1) Seconds INR 1.2 APTT 36.9 H (26.0-36.0) Seconds Sodium 139 (136-145) mEq/L Potassium 4.0 (3.5-5.1) mEq/L Chloride 92 L (98-107) mEq/L Carbon Dioxide 39 H (23-29) mEq/L BUN 46 H (8-23) mg/dL Creatinine 2.73 H (0.60-1.20) mg/dL Est GFR ( Amer) 20 L (> 60) Est GFR (Non-Af Amer) 17 L (> 60) BUN/Creatinine Ratio 17 (6-26) Glucose 84 (70-105) mg/dL Calculated Osmolality 299 (280-300) Calcium 8.8 (8.6-10.3) mg/dL Blood Type Antibody Screen Crossmatch 08/25/17 Range/Units 16:14 WBC (4.3-11.1) K/mcL RBC (3.82-4.97) M/mcL Hgb (11.5-15.4) g/dL Hct (35.3-44.9) % MCV (83.0-100.0) fL MCH (28.0-33.3) pg MCHC (31.6-35.5) g/dL RDW (11.5-14.5) % Plt Count (140-400) K/mcL MPV (9.4-12.4) fL Immature Gran % (0-4) % Seg Neutrophils % % Lymphocytes % % Monocytes % % Eosinophils % % Basophils % % Neutrophils # (1.6-8.9) K/mcL Lymphocytes # (0.6-4.6) K/mcL Monocytes # (0.0-1.3) K/mcL Eosinophils # (0.0-0.6) K/mcL Basophils # (0.0-0.2) K/mcL Immature Plt Fraction (1.1-6.1) % PT (9.4-12.1) Seconds INR APTT (26.0-36.0) Seconds Sodium (136-145) mEq/L Potassium (3.5-5.1) mEq/L Chloride (98-107) mEq/L Carbon Dioxide (23-29) mEq/L BUN (8-23) mg/dL Creatinine (0.60-1.20) mg/dL Est GFR ( Amer) (> 60) Est GFR (Non-Af Amer) (> 60) BUN/Creatinine Ratio (6-26) Glucose (70-105) mg/dL Calculated Osmolality (280-300) Calcium (8.6-10.3) mg/dL Blood Type O POSITIVE Antibody Screen NEGATIVE Crossmatch See Detail - EKG Data EKG #1 EKG attestation: Yes I reviewed and interpreted this EKG. EKG results narrative: EKG performed 1611 ventricular paced rhythm 54 beats per minute, QRS 177. Compared to prior EKG performed 08/05/[address] with [address] findings. No [address] elevation or depression. No acute ischemic changes.
[2017-08-25 16:35] LABS: Basophils % 0.2 %; Hematocrit 24.7 % (35.3-44.9); Immature Granulocytes % 0.5 % (0-4); Red Blood Count 2.52 M/mcL (3.82-4.97)
[2017-08-25 16:37] LABS: Eosinophils # 0.1 K/mcL (0.0-0.6); Eosinophils % 1.2 %; Immature Platelets 4.6 % (1.1-6.1); Lymphocytes # 0.4 K/mcL (0.6-4.6); Lymphocytes % 6.1 %; Mean Corpuscular HGB Conc 30.8 g/dL (31.6-35.5); Mean Corpuscular Hemoglobin 30.2 pg (28.0-33.3); Mean Platelet Volume 11.2 fL (9.4-12.4); Monocytes # 0.2 K/mcL (0.0-1.3); Monocytes % 4.2 %; Neutrophils # 5.1 K/mcL (1.6-8.9); Segmented Neutrophils % 87.8 %
[2017-08-25 16:40] LABS: INR 1.2
[2017-08-25 16:43] LABS: Activated Partial Thrombo Time 36.9 Seconds (26.0-36.0)
[2017-08-25 16:44] LABS: Hemoglobin 7.6 g/dL (11.5-15.4); Platelet Count 56 K/mcL (140-400)
[2017-08-25] MEDS ORDERED: Ipratropium/Albuterol Neb 3 ML IH ONE (16:44)
[2017-08-25 16:49] LABS: Calcium 8.8 mg/dL (8.6-10.3)
--- NOTE | 2017-08-25 19:15 | Emergency Department Note ---
Disposition Clinical Impression: Melena, Anemia due to GI blood loss, Acute kidney injury, Hypotension due to blood loss Disposition: Admitted As Inpatient Condition: Fair Forms: ED Satisfaction Letter General Adult HPI - General Chief complaint: ED GI Bleed Stated complaint: Tarry Stools Time Seen by Provider: 08/25/17 15:50 Source: patient, EMS Mode of arrival: EMS Limitations: no limitations - History of Present Illness Pain Scale: 0 - Related Data Home Medications Medication Instructions Recorded Confirmed Allopurinol [Zyloprim 300 MG] 300 mg PO DAILY 01/12/16 08/25/17 Calcium Carbonate [Calcium] 1,500 mg PO BID 04/22/16 08/25/17 Oxygen 4 l NS AD 04/22/16 08/25/17 Folic Acid 1 mg PO DAILY 05/28/16 08/25/17 Ranitidine HCl [Acid Route Sales Specialist] 150 mg PO BID 07/12/16 08/25/17 Albuterol Sulfate [Ventolin Hfa] 1 - 2 puff IH Q4-6H PRN 10/14/16 08/25/17 Umeclidinium [place] [Incruse 1 puff IH QPM 10/14/16 08/25/17 Ellipta] Sacubitril/Valsartan 24/26 mg 1 tab PO BID 06/03/17 08/25/17 [Entresto 24 mg-26 mg Tablet] Fluticasone/Vilanterol [Breo 1 each IH BID 06/16/17 08/25/17 Ellipta 200-25 Mcg INH] Ondansetron ODT [Zofran ODT] 4 mg SL Q8H PRN 06/16/17 08/25/17 Ferrous Gluconate 324 mg PO 1200 07/08/17 08/25/17 Ropinirole HCl [Requip] 4 mg PO HS 07/09/17 08/25/17 Citalopram [CeleXA] 20 mg PO DAILY 08/25/17 08/25/17 Furosemide [Lasix] 40 mg PO Q48H 08/25/17 08/25/17 Previous Rx's Medication Instructions Recorded Amiodarone [Cordarone] 200 mg PO DAILY #0 06/19/17 Omeprazole [PriLOSEC] 40 mg PO BID capsule. 07/11/17 Sucralfate [Carafate] 1 gm PO QIDAC tablet 07/11/17 Levothyroxine [Synthroid] 150 mcg PO DAILY@0630 tablet 07/28/17 ALPRAZolam [Xanax 0.25 MG Tablet] 0.25 mg PO HS 5 Days #5 tablet 08/13/17 Bumetanide [Bumex] 0.5 mg PO BIDDIURETIC #60 tablet 08/13/17 Potassium Chloride [Klor-Con 10 meq PO DAILY #30 capsule.er 08/13/17 Sprinkle] Allergies Allergy/AdvReac Type Severity Reaction Status Date / Time Penicillins Allergy Hives Verified 08/25/17 10:52 Sulfa (Sulfonamide Allergy Hives Verified 08/25/17 10:52 Antibiotics) gabapentin AdvReac Hallucinati Verified 08/25/17 10:52 ng Oxycodone [From Percocet] AdvReac Hallucinati Verified 08/25/17 10:52 ng Constitutional: Denies: fever, chills, weakness ENT ED: Denies: congestion Cardiovascular: Denies: chest pain Respiratory: Denies: cough, dyspnea Gastrointestinal: Reports: melena, hematochezia. Denies: abdominal pain, nausea , vomiting Genitourinary: Denies: dysuria Integumentary: Denies: rash, abrasion Neurological: Denies: headache Past Medical History - Past Medical History Medical history: Reports: asthma, atrial fibrillation, cancer, cardiomyopathy, CHF, COPD, GERD, GI bleed, renal disease, thyroid disease, valvular heart disease Surgical history: Reports: appendectomy, breast surgery, cancer surgery, heart valve replacement, hysterectomy, pacemaker/AICD Psychiatric history: Reports: anxiety, depression TRANSPORTATION TECHNICIAN history: Reports: no TRANSPORTATION TECHNICIAN history - Social History Smoking Status: Former smoker Smokeless Tobacco Status: No Alcohol use: Reports: none Drug use: Reports: none Physical Exam - General Limitations: no limitations General appearance: alert, in no apparent distress, obese Course Vital Signs Temperature 97.5 F L 08/25/17 16:01 Pulse Rate 51 08/25/17 16:01 Respiratory Rate 18 08/25/17 16:01 Blood Pressure 77/38 08/25/17 16:01 O2 Sat by Pulse Oximetry 98 08/25/17 16:01 Temperature 97.5 F L 08/25/17 16:01 Pulse Rate 50 08/25/17 17:56 Respiratory Rate 18 08/25/17 18:51 Blood Pressure 99/55 08/25/17 18:51 O2 Sat by Pulse Oximetry 98 08/25/17 17:56 Oxygen Delivery Oxygen Delivery Nasal Cannula Medical Decision Making - Lab Data Result diagrams: 08/25/17 16:14 08/25/17 16:14 Lab Results 08/25/17 08/25/17 08/25/17 Range/Units 16:14 16:14 16:14 WBC 5.8 (4.3-11.1) K/mcL RBC 2.52 L (3.82-4.97) M/mcL Hgb 7.6 L (11.5-15.4) g/dL Hct 24.7 L (35.3-44.9) % MCV 98.0 (83.0-100.0) fL MCH 30.2 (28.0-33.3) pg MCHC 30.8 L (31.6-35.5) g/dL RDW 16.0 H (11.5-14.5) % Plt Count 56 L (140-400) K/mcL MPV 11.2 (9.4-12.4) fL Immature Gran % 0.5 (0-4) % Seg Neutrophils % 87.8 % Lymphocytes % 6.1 % Monocytes % 4.2 % Eosinophils % 1.2 % Basophils % 0.2 % Neutrophils # 5.1 (1.6-8.9) K/mcL Lymphocytes # 0.4 L (0.6-4.6) K/mcL Monocytes # 0.2 (0.0-1.3) K/mcL Eosinophils # 0.1 (0.0-0.6) K/mcL Basophils # 0.0 (0.0-0.2) K/mcL Immature Plt Fraction 4.6 (1.1-6.1) % PT 13.0 H (9.4-12.1) Seconds INR 1.2 APTT 36.9 H (26.0-36.0) Seconds Sodium 139 (136-145) mEq/L Potassium 4.0 (3.5-5.1) mEq/L Chloride 92 L (98-107) mEq/L Carbon Dioxide 39 H (23-29) mEq/L BUN 46 H (8-23) mg/dL Creatinine 2.73 H (0.60-1.20) mg/dL Est GFR ( Amer) 20 L (> 60) Est GFR (Non-Af Amer) 17 L (> 60) BUN/Creatinine Ratio 17 (6-26) Glucose 84 (70-105) mg/dL Calculated Osmolality 299 (280-300) Calcium 8.8 (8.6-10.3) mg/dL Blood Type Antibody Screen Crossmatch 08/25/17 Range/Units 16:14 WBC (4.3-11.1) K/mcL RBC (3.82-4.97) M/mcL Hgb (11.5-15.4) g/dL Hct (35.3-44.9) % MCV (83.0-100.0) fL MCH (28.0-33.3) pg MCHC (31.6-35.5) g/dL RDW (11.5-14.5) % Plt Count (140-400) K/mcL MPV (9.4-12.4) fL Immature Gran % (0-4) % Seg Neutrophils % % Lymphocytes % % Monocytes % % Eosinophils % % Basophils % % Neutrophils # (1.6-8.9) K/mcL Lymphocytes # (0.6-4.6) K/mcL Monocytes # (0.0-1.3) K/mcL Eosinophils # (0.0-0.6) K/mcL Basophils # (0.0-0.2) K/mcL Immature Plt Fraction (1.1-6.1) % PT (9.4-12.1) Seconds INR APTT (26.0-36.0) Seconds Sodium (136-145) mEq/L Potassium (3.5-5.1) mEq/L Chloride (98-107) mEq/L Carbon Dioxide (23-29) mEq/L BUN (8-23) mg/dL Creatinine (0.60-1.20) mg/dL Est GFR ( Amer) (> 60) Est GFR (Non-Af Amer) (> 60) BUN/Creatinine Ratio (6-26) Glucose (70-105) mg/dL Calculated Osmolality (280-300) Calcium (8.6-10.3) mg/dL Blood Type O POSITIVE Antibody Screen NEGATIVE Crossmatch See Detail Attestation Statement - Attestation Attestation: I examined this patient and my medical decision-making was reviewed with the Resident Physician. I agree with the documented findings, disposition and treatment plan as described except to the extent set forth below. BP 70s-90s in pt who is in 90s at baseline. Mentating at baseline, no diaphoresis or tachycardia. Transfusion indicated, pt is transfused frequently and declined discussion of risks/benefits as she is already familiar with these.
[2017-08-25] MEDS ORDERED: 0.9 % Sodium Chloride 250 ML ONE (19:54)
[2017-08-25] MEDS ORDERED: Naloxone 0.4 MG/ML INJ IVP PRN (20:06)
[2017-08-25] MEDS ORDERED: Acetaminophen 325 MG TABLET PO PRN (20:06)
[2017-08-25] MEDS ORDERED: Ipratropium/Albuterol Neb 3 ML IH PRN (20:11)
[2017-08-25] MEDS ORDERED: Furosemide 40 MG/4 ML VIAL IVP ONE (20:11)
--- NOTE | 2017-08-25 20:26 | Internal Med History&Physical ---
Date of Encounter: 08/25/17 Time of Encounter: 20:26 Internal Medicine - H&P: HPI Chief complaint: Black tarry stools Admitted From: Emergency Dept Plans for Post Hospital Care: Transfer Group Home Facility History of present illness: Ms. Higginbotham is a 77 year old female with multiple medical problems, including chronic anemia with negative GI workup with multiple hospitalizations, was sent from custodial due to black tarry stools. Patient is confused and is unable to provide any history; this is obtained from ER records, and sister on the phone. She presented to her routine Oncology visit today and noted to be confused and disoriented; due to her multiple hospital admissions and declining quality of life, family is leaning towards Hospice care. SHe was supposed to get labwork for Hb monitoring at the custodial and her blood samples were apparently lost /misplaced. Patient was noted to have several episodes of dark tarry stools at the custodial. No fever/chills, abdominal or chest pain, nausea/vomiting. Patient denies any other complaints at this time. Past Med Surg Social Fam HX - Past Medical History Medical history: asthma, atrial fibrillation, cancer (breast), cardiomyopathy, CHF, COPD, GERD, GI bleed, renal disease, thyroid disease, valvular heart disease Psychiatric history: anxiety, depression - Past Surgical History Surgical History: appendectomy, breast surgery, cancer surgery, heart valve replacement, hysterectomy, pacemaker/AICD - Social History Smoking Status: Former smoker Smokeless Tobacco Status: No Alcohol use: none Drug use: none Current living situation: [facility] Activity Level: Uses cane/walker Recent Out of Country Travel Within the Last 8 Weeks: No Exposure or Possible Exposure to Illness During Travel: No - Family History Mother Family Member Ethnicity: Non- Living Status: Hx Family Cardiac Disorders: No Hx Family Respiratory Disorders: No Hx Family Cancer: Yes Hx Family GI Disorders: No Hx Family Endocrine Disorder: No Hx Family Neuromuscular Disorders: No Hx Family Neurologic Disorders: No Hx Family HEENT Disorders: No Hx Family Autoimmune Disorders: No Father Living Status: Hx Family Cardiac Disorders: Yes Hx Family Respiratory Disorders: No Hx Family Cancer: Yes Hx Family GI Disorders: No Hx Family Endocrine Disorder: No Hx Family Neuromuscular Disorders: No Hx Family Neurologic Disorders: No Hx Family HEENT Disorders: No Hx Family Autoimmune Disorders: No Internal Medicine - H&P: Meds Allopurinol [Zyloprim 300 MG] 300 mg PO DAILY 01/12/16 [History] Calcium Carbonate [Calcium] 1,500 mg PO BID 04/22/16 [History] Oxygen 4 l NS AD 04/22/16 [History] Folic Acid 1 mg PO DAILY 05/28/16 [History] Ranitidine HCl [Acid Concrete Buster Operator] 150 mg PO BID 07/12/16 [History] Albuterol Sulfate [Ventolin Hfa] 1 - 2 puff IH Q4-6H PRN 10/14/16 [History] Umeclidinium [place] [Incruse Ellipta] 1 puff IH QPM 10/14/16 [History] Sacubitril/Valsartan 24/26 mg [Entresto 24 mg-26 mg Tablet] 1 tab PO BID [History] Fluticasone/Vilanterol [Breo Ellipta 200-25 Mcg INH] 1 each IH BID 06/16/17 [ History] Ondansetron ODT [Zofran ODT] 4 mg SL Q8H PRN 06/16/17 [History] Amiodarone [Cordarone] 200 mg PO DAILY #0 06/19/17 [Rx] Ferrous Gluconate 324 mg PO 1200 07/08/17 [History] Ropinirole HCl [Requip] 4 mg PO HS 07/09/17 [History] Omeprazole [PriLOSEC] 40 mg PO BID capsule. 07/11/17 [Rx] Sucralfate [Carafate] 1 gm PO QIDAC tablet 07/11/17 [Rx] Levothyroxine [Synthroid] 150 mcg PO DAILY@0630 tablet 07/28/17 [Rx] ALPRAZolam [Xanax 0.25 MG Tablet] 0.25 mg PO HS 5 Days #5 tablet 08/13/17 [Rx] Bumetanide [Bumex] 0.5 mg PO BIDDIURETIC #60 tablet 08/13/17 [Rx] Potassium Chloride [Klor-Con Sprinkle] 10 meq PO DAILY #30 capsule.er 08/13/17 [ Rx] Citalopram [CeleXA] 20 mg PO DAILY 08/25/17 [History] Furosemide [Lasix] 40 mg PO Q48H 08/25/17 [History] 3 Allergy/AdvReac Type Severity Reaction Status Date / Time Penicillins Allergy Hives Verified 08/25/17 10:52 Sulfa (Sulfonamide Allergy Hives Verified 08/25/17 10:52 Antibiotics) gabapentin AdvReac Hallucinati Verified 08/25/17 10:52 ng Oxycodone [From Percocet] AdvReac Hallucinati Verified 08/25/17 10:52 ng ROS unobtainable: due to mental status All Systems PM: A 10-system review of systems was performed and is negative for pertinent findings except as documented above in the HPI. - Constitutional Constitutional: no chills, no fever(s), no night sweats - EENT Eyes: no change in vision, no discharge, no pain, no photophobia Ears: no ear discharge, no ear pain, no tinnitus Nose, mouth and throat: no dysphagia, no nasal discharge, no neck pain, no sore throat - Cardiovascular Cardiovascular ROS IM: no chest pain, no diaphoresis, no dyspnea, no lightheadedness, no palpitations, no syncope - Respiratory Respiratory: no cough, no dyspnea, no wheezing, no excessive phlegm production - Gastrointestinal Gastrointestinal: loose stools, melena - Genitourinary Genitourinary: no change in urinary stream, no dysuria, no flank pain, no hematuria - Musculoskeletal Musculoskeletal ROS IM: no numbness, no tingling - Integumentary Integumentary IM: no rash, no unusual bruising - Neurological Neurological ROS: behavioral changes, confusion - Hematologic/Lymphatic Hematologic/Lymphatic: no easy bruising - Constitutional Vitals: Temp Pulse Resp BP Pulse Ox 97.4 F L 76 17 79/56 92 08/25/17 19:26 08/25/17 19:26 08/25/17 19:26 08/25/17 19:26 08/25/17 19:26 General appearance: Present: A&O X 1. Absent: answers questions appropriately - Respiratory Respiratory exam: Present: wheezes (B/L posterior end expiratory wheezing). Absent: accessory muscle use, rales, rhonchi - Cardiovascular Cardiovascular exam: Present: bradycardia, RRR, +S1, +S2. Absent: diastolic murmur, gallop, rubs, systolic murmur - GI/Abdominal GI/Abdominal exam: Present: normal bowel sounds, soft, no peritoneal signs. Absent: distended, tenderness - Extremities Exam Extremities exam: Present: pedal edema (2+ pitting pedal edema B/L, erythema), warm, radial pulses palpable and symmetrical. Absent: calf tenderness, cyanotic - Neurological Exam Neurological exam: Present: altered, no focal deficits. Absent: pronater drift , facial droop, speech deficit - Skin Skin exam: Present: dry, intact Internal Med - H&P Results - Labs CBC & Chem 7: 08/25/17 16:14 08/25/17 16:14 - EKG Data -: EKG Interpreted by Myself (paced rhythm, bradycardic) - Assessment and plan (1) Hypotension Current Visit: Yes Status: Acute Assessment and plan: has borderline low BP at baseline due to multiple comorbidities- CHF, COPD, CKD , anemia. Acute hypotension likely due to GI bleed, anemia; continue PRBC transfusion, IV hydration; at risk for volume overload and respiratory failure; start Midodrine ; consider Dopamine drip if BP does not improve; Qualifiers: Hypotension type: other hypotension type Qualified Code(s): I95.89 - Other hypotension (2) Anemia Current Visit: Yes Status: Chronic Assessment and plan: Acute on chronic anemia; multiple episodes of acute anemia in the last few months; unfortunately cannot pinpoint on the source of GI bleed; current HB 7.6 , with chronic thrombocytopenia; iron deficiency per Oncology notes; has been on IV Fe and PRBC transfusions; EGD and colonoscopy in June 2017- severe esophagitis, nonbleeding angioectasia in duodenum and jejunum status post APC, nonbleeding colonic polyps; Transfuse to keep Hb >8; GI has been consulted by ER; continue PPI drip and monitor closely; Qualifiers: Anemia type: other cause Other causes of anemia: chronic disease, other Qualified Code(s): D63.8 - Anemia in other chronic diseases classified elsewhere (3) Acute encephalopathy Current Visit: Yes Status: Acute Assessment and plan: likely metabolic due to multiple medical problems; discussed in detail with patient;connor SORENSEN, her sister Milka- they have been to Oncology office earlier today and she understands patient's very poor prognosis, decided on Hospice care ; code status changed to DNR/DNI-CCA; patient cannot participate in this discussion at this time; Will consult palliative care; (4) [id number] kidney injury Current Visit: Yes Status: Acute Assessment and plan: has CKD-stage 3, with baseline Creatinine around 1.3; now at 2.73; likely due to anemia and hypotension; continue IV hydration and PRBC transfusion; monitor serum creatinine; at risk for worsening renal failure; Qualifiers: Acute renal failure type: unspecified Chronic kidney disease stage: stage 3 (moderate) Qualified Code(s): N17.9 - Acute kidney failure, unspecified; N18.3 - Chronic kidney disease, stage 3 (moderate); N18.3 - Chronic kidney disease, stage 3 (moderate) (5) Atrial fibrillation with slow ventricular response Current Visit: Yes Status: Chronic Assessment and plan: has paced rhythm; episodes of bradycardia noted; hold Amiodarone; continue Telemetry; no anticoagulation due to GI bleed; (6) Congestive heart failure (CHF) Current Visit: Yes Status: Chronic Assessment and plan: Echo from last month shows EF 45%, moderate LV dilation, moderate-severe MR, moderate pHTN; patient has always had borderline low BP, but it is lower now; hold Entresto and diuretics; at risk for respirator failure and volume overload; Qualifiers: Heart failure type: combined systolic and diastolic Heart failure chronicity: chronic Qualified Code(s): I50.42 - Chronic combined systolic ( congestive) and diastolic (congestive) heart failure (7) Counseling regarding advanced care planning and goals of care Current Visit: Yes Status: Acute Assessment and plan: palliative care consulted, as above; (8) History of breast cancer Current Visit: Yes Status: Chronic Assessment and plan: follows with Oncology, PET scan was recommended along with repeat mammogram, which could not be done due to patient's poor functional status; noted to have a lung nodule, the biopsy of which was deferred due to risk of pneumothorax; poor prognosis; (9) Superficial venous thrombosis of arm Current Visit: Yes Status: Chronic Assessment and plan: recent superficial venous thrombosis of her left UE; supportive care; Qualifiers: Laterality: left Qualified Code(s): I82.612 - Acute embolism and thrombosis of superficial veins of left upper extremity (10) COPD (chronic obstructive pulmonary disease) Current Visit: Yes Status: Chronic Assessment and plan: severe COPD at baseline; on supplemental O2 and BiPAP at night; continue PRN breathing treatments, ICS; Qualifiers: COPD type: chronic bronchitis Chronic bronchitis type: mucopurulent Qualified Code(s): J41.1 - Mucopurulent chronic bronchitis (11) Hypothyroidism Current Visit: Yes Status: Chronic Assessment and plan: has recent h/o- myxedema coma; TSH now improved; continue Levothyroxine; Qualifiers: Hypothyroidism type: unspecified Qualified Code(s): E03.9 - Hypothyroidism , unspecified - Time Spent With Patient Total time spent is greater than 50% in coordination of care (as documented) at patient's floor/unit and/or counseling patient:
[2017-08-25] MEDS ORDERED: Famotidine 20 MG TABLET PO SCH (21:00)
[2017-08-25] MEDS ORDERED: (Fluticasone/Vilanterol [Breo Ellipta 200-25 Mcg Inh]) IH SCH (21:00)
[2017-08-25 21:08] LABS: ABG Base Excess 20 mEq/L (-2 to 3); ABG HCO3 49 mEq/L (21-27); ABG Oxygen Saturation 98 % (95-98); ABG PCO2 81 mmHg (35-45); ABG PH 7.39 pH Units (7.32-7.45); ABG PO2 105 mmHg (85-104); ABG TCO2 51 mEq/L (20-26)
[2017-08-25] MEDS: rOPINIRole 1 MG TABLET PO SCH (23:43)
[2017-08-25] MEDS: ALPRAZolam 0.25 MG TABLET PO SCH (23:43)
[2017-08-25] MEDS: Sucralfate 1 GM TABLET PO SCH (23:43)
[2017-08-25] MEDS: Pantoprazole 40 MG in 0.9 % Sodium Chloride Mini Bag 100 ML IVC SCH (23:44)
[2017-08-26] MEDS: Pantoprazole 40 MG in 0.9 % Sodium Chloride Mini Bag 100 ML IVC SCH ×4 (04:46→10:22)
[2017-08-26] MEDS ORDERED: 0.9 % Sodium Chloride 250 ML ONE ×2 (04:52→08:40)
[2017-08-26] MEDS ORDERED: 0.9 % Sodium Chloride 250 ML IVC ONE ×2 (04:53→05:34)
[2017-08-26] MEDS ORDERED: 0.9 % Sodium Chloride 1,000 ML ONE (05:37)
[2017-08-26 06:19] LABS: Basophils % 0.2 %; Calcium 7.9 mg/dL (8.6-10.3); Immature Granulocytes % 0.5 % (0-4); Magnesium 1.9 mg/dL (1.6-2.6); Potassium 3.7 mEq/L (3.5-5.1); Red Cell Distribution Width 16.7 % (11.5-14.5)
[2017-08-26 06:21] LABS: Eosinophils # 0.1 K/mcL (0.0-0.6); Eosinophils % 1.5 %; Hematocrit 23.1 % (35.3-44.9); Hemoglobin 6.9 g/dL (11.5-15.4); Immature Platelets 6.5 % (1.1-6.1); Lymphocytes # 0.4 K/mcL (0.6-4.6); Lymphocytes % 9.1 %; Mean Corpuscular HGB Conc 29.9 g/dL (31.6-35.5); Mean Corpuscular Hemoglobin 28.3 pg (28.0-33.3); Mean Corpuscular Volume 94.7 fL (83.0-100.0); Mean Platelet Volume 11.4 fL (9.4-12.4); Monocytes # 0.2 K/mcL (0.0-1.3); Monocytes % 5.7 %; Neutrophils # 3.4 K/mcL (1.6-8.9); Red Blood Count 2.44 M/mcL (3.82-4.97)
[2017-08-26 06:22] LABS: Platelet Count 37 K/mcL (140-400)
[2017-08-26] MEDS ORDERED: *HR* Amiodarone 200 MG TABLET PO SCH (09:00)
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
--- NOTE | 2017-08-26 09:33 | Pulmonology Consult Note ---
<Jose L Choi - Last Filed: 08/26/17 16:19> Date of Encounter: 08/26/17 Time of Encounter: 08:00 Assessment and Plan (1) Hypotension Current Visit: Yes Status: Acute Pulmonology was consulted by the primary hospitalist team about a borderline low blood pressure when compared to baseline blood pressures. She does have history of low blood pressure due to her comorbidities of CHF/COPD/C Edith and anemia. Acute hypotension is most likely due to her GI bleed which is what she presented here as well as anemia We recommend that to help the blood pressure they started dopamine drip at 2.5 mcg/kg/m to help with the blood pressure and be sure that it rises. We will also recommend IV hydration to help with the blood pressure as well. At this time patient is alert and able to follow commands. Palliative care has also been consulted and patient is a DNR CCA-DNI so at this time there is no reason to intubate the patient as she is breathing on her own well and she does use CPAP at night which is known for her due to her COPD. Pulmonology will continue to follow the patient we will see how her blood pressure holds throughout the night. Qualifiers: Hypotension type: other hypotension type Qualified Code(s): I95.89 - Other hypotension (2) Acute encephalopathy Current Visit: Yes Status: Acute This is being managed by the day team. Please refer to their note for plan. (3) Anemia Current Visit: Yes Status: Acute This is being managed by the day team. Please refer to their note for plan. Qualifiers: Anemia type: other cause Other causes of anemia: chronic disease, other Qualified Code(s): D63.8 - Anemia in other chronic diseases classified elsewhere (4) Mzxow-[id number]-usfrgyl kidney injury Current Visit: Yes Status: Acute This is being managed by the day team. Please refer to their note for plan. Qualifiers: Acute renal failure type: unspecified Chronic kidney disease stage: stage 3 (moderate) Qualified Code(s): N17.9 - Acute kidney failure, unspecified; N18.3 - Chronic kidney disease, stage 3 (moderate); N18.3 - Chronic kidney disease, stage 3 (moderate) (5) COPD (chronic obstructive pulmonary disease) Current Visit: Yes Status: Chronic Patient does have history of COPD does not seem to be an exacerbation at this time as has not her primary reason for being here as it is GI bleeding. Patient is currently on BiPAP at night which will be continued. Patient is on nasal cannula with oxygen saturations around 98% well on that. Patient's risk for status shows diminished lungs bilaterally and wheezing which is normal for based off previous exams. Continue using BiPAP at night Patient is DNI so there will not be intubations occurring. Palliative care has been consult it and there are considering hospice please refer to their note for their decision. Qualifiers: COPD type: emphysema Emphysema type: unspecified Qualified Code(s): J43.9 - Emphysema, unspecified (6) Atrial fibrillation with slow ventricular response Current Visit: Yes Status: Chronic This is being managed by the day team. Please refer to their note for plan. (7) Congestive heart failure (CHF) Current Visit: Yes Status: Chronic This is being managed by the day team. Please refer to their note for plan. Qualifiers: Heart failure type: combined systolic and diastolic Heart failure chronicity: chronic Qualified Code(s): I50.42 - Chronic combined systolic ( congestive) and diastolic (congestive) heart failure History of Present Illness Consult date: 08/26/17 Requesting physician: Shauna Llanes Reason for consult: dyspnea Chief complaint: Black Tarry Stools History of present illness: Mrs. Higginbotham is a 77-year-old female with multiple medical problems including chronic anemia who was sent from a jail due to black tarry stools to the emergency department. Patient was confused when she came to the emergency department was unable to provide any further history so the sister was called to get most of the history. Today she was seen at a routine oncology visit confused and disoriented placing her here for evaluation. Family has been leaning towards hospice care as she has continued to look worse and worse each day. She is a DNR CCA DNI. Patient does have a history of COPD and uses BiPAP at night. She also in previous CT studies had lung lesions that were possible for lung malignancy but has never gotten follow-up or biopsies due to her poor health. Otherwise patient says that she does have a cough or been no fevers she has no other story complaints at this time. We are consult did by the hospitalist team as the patient did become hypotensive and they asked for our recommendations from a critical care standpoint. Past Med Surg Social Fam HX - Past Medical History Medical history: asthma, atrial fibrillation, cancer (breast), cardiomyopathy, CHF, COPD, GERD, GI bleed, renal disease, thyroid disease, valvular heart disease Psychiatric history: anxiety, depression - Past Surgical History Surgical History: appendectomy, breast surgery, cancer surgery, heart valve replacement, hysterectomy, pacemaker/AICD - Social History Smoking Status: Former smoker Smokeless Tobacco Status: No Alcohol use: none Drug use: none - Family History Mother Family Member Ethnicity: Non- Living Status: Hx Family Cardiac Disorders: No Hx Family Respiratory Disorders: No Hx Family Cancer: Yes Hx Family GI Disorders: No Hx Family Endocrine Disorder: No Hx Family Neuromuscular Disorders: No Hx Family Neurologic Disorders: No Hx Family HEENT Disorders: No Hx Family Autoimmune Disorders: No Father Living Status: Hx Family Cardiac Disorders: Yes Hx Family Respiratory Disorders: No Hx Family Cancer: Yes Hx Family GI Disorders: No Hx Family Endocrine Disorder: No Hx Family Neuromuscular Disorders: No Hx Family Neurologic Disorders: No Hx Family HEENT Disorders: No Hx Family Autoimmune Disorders: No Medications and Allergies Allopurinol [Zyloprim 300 MG] 300 mg PO DAILY 01/12/16 [History] Calcium Carbonate [Calcium] 1,500 mg PO BID 04/22/16 [History] Oxygen 4 l NS AD 04/22/16 [History] Folic Acid 1 mg PO DAILY 05/28/16 [History] Ranitidine HCl [Acid Smoke Control Supervisor] 150 mg PO BID 07/12/16 [History] Albuterol Sulfate [Ventolin Hfa] 1 - 2 puff IH Q4-6H PRN 10/14/16 [History] Umeclidinium [place] [Incruse Ellipta] 1 puff IH QPM 10/14/16 [History] Sacubitril/Valsartan 24/26 mg [Entresto 24 mg-26 mg Tablet] 1 tab PO BID [History] Fluticasone/Vilanterol [Breo Ellipta 200-25 Mcg INH] 1 each IH BID 06/16/17 [ History] Ondansetron ODT [Zofran ODT] 4 mg SL Q8H PRN 06/16/17 [History] Amiodarone [Cordarone] 200 mg PO DAILY #0 06/19/17 [Rx] Ferrous Gluconate 324 mg PO 1200 07/08/17 [History] Ropinirole HCl [Requip] 4 mg PO HS 07/09/17 [History] Omeprazole [PriLOSEC] 40 mg PO BID capsule. 07/11/17 [Rx] Sucralfate [Carafate] 1 gm PO QIDAC tablet 07/11/17 [Rx] Levothyroxine [Synthroid] 150 mcg PO DAILY@0630 tablet 07/28/17 [Rx] ALPRAZolam [Xanax 0.25 MG Tablet] 0.25 mg PO HS 5 Days #5 tablet 08/13/17 [Rx] Bumetanide [Bumex] 0.5 mg PO BIDDIURETIC #60 tablet 08/13/17 [Rx] Potassium Chloride [Klor-Con Sprinkle] 10 meq PO DAILY #30 capsule.er 08/13/17 [ Rx] Citalopram [CeleXA] 20 mg PO DAILY 08/25/17 [History] Furosemide [Lasix] 40 mg PO Q48H 08/25/17 [History] 3 Allergy/AdvReac Type Severity Reaction Status Date / Time Penicillins Allergy Hives Verified 08/25/17 10:52 Sulfa (Sulfonamide Allergy Hives Verified 08/25/17 10:52 Antibiotics) gabapentin AdvReac Hallucinati Verified 08/25/17 10:52 ng Oxycodone [From Percocet] AdvReac Hallucinati Verified 08/25/17 10:52 ng ROS unobtainable: due to mental status All Systems: The remainder of the systems were reviewed and are negative Physical Examination Vital Signs: Vital Signs, Last 4 Hours Temp Pulse Resp BP Pulse Ox 08/26/17 08:57 97.3 F L 79 16 99/55 98 08/26/17 08:47 97.4 F L 50 17 68/41 96 08/26/17 07:10 97.5 F L 45 14 84/47 99 08/26/17 05:52 97.4 F L 51 16 53/30 96 General appearance: no acute distress, asleep Eyes: nonicteric ENT: oropharynx moist Neck: supple Effort: mildly labored Inspection: normal Auscultation: bilateral: diminished breath sounds, wheezes, rhonchi Cardiovascular: regular rate and rhythm Gastrointestinal: normoactive bowel sounds, non-distended Integumentary: normal Extremities: no cyanosis, no clubbing, edema (2+ pitting edema in the legs bilaterally) Musculoskeletal: no deformities, ROM normal normal mental status, non-focal exam Results - Laboratory Findings CBC and BMP: 08/26/17 15:40 08/26/17 04:00 ABG ABG pH 7.39 pH Units (7.32-7.45) 08/25/17 21:03 ABG pCO2 81 mmHg (35-45) H* 08/25/17 21:03 ABG pO2 105 mmHg (85-104) H 08/25/17 21:03 ABG O2 Saturation 98 % (95-98) 08/25/17 21:03 PT/INR, D-dimer PT 13.0 Seconds (9.4-12.1) H 08/25/17 16:14 Abnormal lab findings: Abnormal lab results WBC 4.1 K/mcL (4.3-11.1) L 08/26/17 04:00 RBC 2.44 M/mcL (3.82-4.97) L 08/26/17 04:00 Hgb 6.9 g/dL (11.5-15.4) L 08/26/17 04:00 Hct 23.1 % (35.3-44.9) L 08/26/17 04:00 MCHC 29.9 g/dL (31.6-35.5) L 08/26/17 04:00 RDW 16.7 % (11.5-14.5) H 08/26/17 04:00 Plt Count 37 K/mcL (140-400) L 08/26/17 04:00 Lymphocytes # 0.4 K/mcL (0.6-4.6) L 08/26/17 04:00 Immature Plt Fraction 6.5 % (1.1-6.1) H 08/26/17 04:00 PT 13.0 Seconds (9.4-12.1) H 08/25/17 16:14 APTT 36.9 Seconds (26.0-36.0) H 08/25/17 16:14 ABG pCO2 81 mmHg (35-45) H* 08/25/17 21:03 ABG pO2 105 mmHg (85-104) H 08/25/17 21:03 ABG HCO3 49 mEq/L (21-27) H 08/25/17 21:03 ABG Total CO2 51 mEq/L (20-26) H 08/25/17 21:03 ABG Base Excess 20 mEq/L (-2 to 3) H 08/25/17 21:03 Carbon Dioxide 37 mEq/L (23-29) H 08/26/17 04:00 BUN 45 mg/dL (8-23) H 08/26/17 04:00 Creatinine 2.77 mg/dL (0.60-1.20) H 08/26/17 04:00 Est GFR ( Amer) 20 (> 60) L 08/26/17 04:00 Est GFR (Non-Af Amer) 17 (> 60) L 08/26/17 04:00 Glucose 53 mg/dL (70-105) L 08/26/17 04:00 Calcium 7.9 mg/dL (8.6-10.3) L 08/26/17 04:00 Stool Occult Blood Positive (Negative) A 08/26/17 04:15 - Diagnostic Findings Chest x-ray: image reviewed - Clinical Findings Intake & Output: Intake & Output 08/25/17 08/26/17 08/26/17 23:59 07:59 15:59 Intake Total 350 / 350 100 / 100 0 / 0 Output Total 0 / 0 Balance 350 / 350 100 / 100 0 / 0 Weight 92 kg Consult Discharge Plan - Plan Referrals: Francisco Melgar Jr [Primary Care Provider] - <Erik Egan - Last Filed: 08/26/17 16:52> Date of Encounter: 08/26/17 All Systems: The remainder of the systems were reviewed and are negative Physical Examination Vital Signs: Vital Signs, Last 4 Hours Temp Pulse Resp BP Pulse Ox 08/26/17 15:37 13 114/61 98 08/26/17 15:13 97.8 F 84 16 114/61 98 Results - Laboratory Findings CBC and BMP: 08/26/17 15:40 08/26/17 04:00 ABG ABG pH 7.39 pH Units (7.32-7.45) 08/25/17 21:03 ABG pCO2 81 mmHg (35-45) H* 08/25/17 21:03 ABG pO2 105 mmHg (85-104) H 08/25/17 21:03 ABG O2 Saturation 98 % (95-98) 08/25/17 21:03 PT/INR, D-dimer PT 13.0 Seconds (9.4-12.1) H 08/25/17 16:14 Abnormal lab findings: Abnormal lab results WBC 4.1 K/mcL (4.3-11.1) L 08/26/17 04:00 RBC 2.44 M/mcL (3.82-4.97) L 08/26/17 04:00 Hgb 9.9 g/dL (11.5-15.4) L D 08/26/17 15:40 Hct 30.5 % (35.3-44.9) L 08/26/17 15:40 MCHC 29.9 g/dL (31.6-35.5) L 08/26/17 04:00 RDW 16.7 % (11.5-14.5) H 08/26/17 04:00 Plt Count 37 K/mcL (140-400) L 08/26/17 04:00 Lymphocytes # 0.4 K/mcL (0.6-4.6) L 08/26/17 04:00 Immature Plt Fraction 6.5 % (1.1-6.1) H 08/26/17 04:00 PT 13.0 Seconds (9.4-12.1) H 08/25/17 16:14 APTT 36.9 Seconds (26.0-36.0) H 08/25/17 16:14 ABG pCO2 81 mmHg (35-45) H* 08/25/17 21:03 ABG pO2 105 mmHg (85-104) H 08/25/17 21:03 ABG HCO3 49 mEq/L (21-27) H 08/25/17 21:03 ABG Total CO2 51 mEq/L (20-26) H 08/25/17 21:03 ABG Base Excess 20 mEq/L (-2 to 3) H 08/25/17 21:03 Carbon Dioxide 37 mEq/L (23-29) H 08/26/17 04:00 BUN 45 mg/dL (8-23) H 08/26/17 04:00 Creatinine 2.77 mg/dL (0.60-1.20) H 08/26/17 04:00 Est GFR ( Amer) 20 (> 60) L 08/26/17 04:00 Est GFR (Non-Af Amer) 17 (> 60) L 08/26/17 04:00 Glucose 53 mg/dL (70-105) L 08/26/17 04:00 Calcium 7.9 mg/dL (8.6-10.3) L 08/26/17 04:00 Stool Occult Blood Positive (Negative) A 08/26/17 04:15 - Clinical Findings Intake & Output: Intake & Output 08/26/17 08/26/17 08/26/17 07:59 15:59 23:59 Intake Total 100 / 100 710 / 710 Output Total 0 / 0 Balance 100 / 100 710 / 710 Weight 92 kg - Attending Attestation I examined this patient and my medical decision-making was reviewed with the Resident Physician. I agree with the documented findings, disposition and treatment plan as described except to the extent set forth below. Patient seen and examined. Labs, radiology, chart personally reviewed. Agree with resident's history and physical, assessment, plan with following comments: POWER CRANE OPERATOR: Patient follows commands, Pulmonary: Acceptable oxygenation and ventilation and continue noninvasive ventilation. Cardiovascular: Patient with hypertension and due to her poor prognosis discussed with primary team and palliative care patient to be placed on low- dose dopamine that can be given in the floor without transferring patient to ICU. GI: Nutrition per dietary and GI prophylaxis per routine Heme: DVT prophylaxis per routine ID: Clear source of any infectious etiologies. Renal; urine out put and renal funtion reviewed Endorcine: blood glucose is monitored Lines: all lines checked and no evidence of infections Skin: skin care to prevent pressure ulcers per nursing routine care Again overall prognosis is poor and reasonable to continue supportive care and they feel patient is a hospice candidate Thank you for consultation please call for any questions.
[2017-08-26] MEDS: Budesonide/Formoterol 160/4.5 MDI IH SCH ×2 (09:57→20:46)
[2017-08-26] MEDS: Tiotropium 18 MCG inhalation IH SCH (09:58)
[2017-08-26] MEDS: Folic Acid 1 MG TABLET PO SCH (10:14)
[2017-08-26] MEDS: Bumetanide 1 MG TABLET PO SCH ×2 (10:14→17:00)
[2017-08-26] MEDS: Sucralfate 1 GM TABLET PO SCH ×4 (10:14→21:25)
[2017-08-26] MEDS: Pantoprazole 40 MG VIAL IVP SCH ×2 (10:14→17:00)
--- NOTE | 2017-08-26 11:28 | Gastroenterology Consult Note ---
Date of Encounter: 08/26/17 Time of Encounter: 10:30 - Assessment and plan (1) Anemia Current Visit: No Status: Acute Assessment and plan: Pt has had chronic GI bleeds due to AVMs and has had multiple scopes in the past. Colonoscopy and push endoscopy 07/10/17 showed no source of bleeding. Hgb 7.6 on admission and 6.9 this AM. Two units PRBC have been ordered. Continue to monitor CBC and transfuse PRBC as needed. Will hold on repeating EGD or colonoscopy at this time. Will discuss with Dr. Rojo. Qualifiers: Anemia type: unspecified type Qualified Code(s): D64.9 - Anemia, unspecified - Time Spent With Patient Total time spent is greater than 50% in coordination of care (as documented) at patient's floor/unit and/or counseling patient: GI History of Present Illness - Data of Consult Patient: known to practice within the last 3 years Consult date: 08/26/17 Requesting Physician: Tangela Richards - Consult Narrative Reason for consult: Anemia, GI Bleed History of present illness: Ms. Higginbotham is a 77 year old female with PMHx of recurrent GI bleed due to AVM, CHF , COPD, DM, aortic valve replacement, Afib, ICD and pacemaker, chronic RUMA, DVT in the left cephalic vein, and stage II breast cancer s/p chemo and radiation. Patient was sent from shelter to the ED for evaluation of black tarry stools. Patient was noted to have several episodes of dark tarry stools at the shelter. Colonoscopy and push endoscopy 07/10/17 showed no source of bleeding. Capsule endoscopy was recommended after colonoscopy 06/04/2016 but procedure was never completed. She was supposed to get labwork for Hgb monitoring at the shelter and her blood samples were apparently lost/ misplaced. Hgb on admission was 7.6 and this AM Hgb 6.9. The patient and her DPOA (her sister Milka) were seen at the Oncology office yesterday and she understands patient's very poor prognosis, decided on Hospice care; code status changed to DNR/DNI-CCA. Procedures: EGD 07/10/17 Dr. Rojo: severe reflux esophagitis and non-bleeding angioectasia in duodenum and jejunum. Pathology report showed acute ulcerative esophagitis negative for dysplasia. Colonoscopy 07/10/17 Dr. Rojo: Two 5mm non-bleeding polyps in desending colon. Pathology report showed tubular adenoma negative for high grade dysplasia. EGD 06/03/2017 Dr. Zelaya: LA Grade A esophagitis, chronic gastritis, single nonbleeding AVM. Colonoscopy 06/04/2016 Dr. Rojo: Single nonbleeding AVM treated with APC, internal hemorrhoids. Recommended capsule endoscopy-not completed. EGD 06/04/2016 Dr. Rojo: Small hiatal hernia, single red spot with no bleeding in duodenum, questionable AVM, treated with APC. Colonoscopy 08/13/2015 Dr. Rojo: Single nonbleeding AVM treated with APC, diverticulosis, internal hemorrhoids. Small bowel enteroscopy 08/13/2015 Dr. Rojo: Three nonbleeding AVM in duodenum and one in stomach, treated with APC. EGD 07/15/2015 Dr. Sweet: Small hiatus hernia, two nonbleeding AVM treated with APC. Past Med Surg Social Fam HX - Past Medical History Medical history: asthma, atrial fibrillation, cancer (breast), cardiomyopathy, CHF, COPD, GERD, GI bleed, renal disease, thyroid disease, valvular heart disease Psychiatric history: anxiety, depression - Past Surgical History Surgical History: appendectomy, breast surgery, cancer surgery, heart valve replacement, hysterectomy, pacemaker/AICD - Social History Smoking Status: Former smoker Smokeless Tobacco Status: No Alcohol use: none Drug use: none - Family History Mother Family Member Ethnicity: Non- Living Status: Hx Family Cardiac Disorders: No Hx Family Respiratory Disorders: No Hx Family Cancer: Yes Hx Family GI Disorders: No Hx Family Endocrine Disorder: No Hx Family Neuromuscular Disorders: No Hx Family Neurologic Disorders: No Hx Family HEENT Disorders: No Hx Family Autoimmune Disorders: No Father Living Status: Hx Family Cardiac Disorders: Yes Hx Family Respiratory Disorders: No Hx Family Cancer: Yes Hx Family GI Disorders: No Hx Family Endocrine Disorder: No Hx Family Neuromuscular Disorders: No Hx Family Neurologic Disorders: No Hx Family HEENT Disorders: No Hx Family Autoimmune Disorders: No - Gastrointestinal Gastrointestinal: Present: as per HPI - Constitutional Constitutional: as per HPI - EENT Eyes: as per HPI Ears: Present: as per HPI Nose, mouth and throat: Present: as per HPI - Cardiovascular Cardiovascular ROS: Present: as per HPI - Respiratory Respiratory IM: Present: as per HPI - Genitourinary Genitourinary: Absent: change in color, Urinary frequency - Neurological ROS Neurological GI: Present: as per HPI - Hematologic/Lymphatic Hematologic/Lymphatic pediatric: Present: as per HPI - Musculoskeletal Musculoskeletal ROS GI: Present: as per HPI - Integumentary Integumentary GI: Present: as per HPI - Psychiatric ROS Psychiatric GI: Present: as per HPI - Endocrine Endocrine IM: Present: as per HPI - Constitutional Vitals: Temp Pulse Resp BP Pulse Ox 97.3 F L 79 16 99/55 92 08/26/17 08:57 08/26/17 08:57 08/26/17 10:57 08/26/17 08:57 08/26/17 10:57 General appearance: Present: cooperative, A&O X 3, no acute distress, answers questions appropriately - Head Head exam: Present: atraumatic, normocephalic - Eye Eye exam: Present: normal appearance, sclera anicteric - ENT ENT exam: Present: mucous membranes dry - Neck Neck exam general surgery: Present: normal inspection, trachea midline - Respiratory Respiratory exam: Present: decreased breath sounds, CTAB - Cardiovascular Cardiovascular exam: Present: RRR, +S1, +S2 - GI/Abdominal GI/Abdominal exam: Present: soft, no peritoneal signs. Absent: distended, firm , guarding, tenderness - Rectal Rectal exam: Present: deferred - Extremities Exam Extremities exam: Present: pedal edema, warm Additional comments: Ecchymosis right arm. - Neurological Exam Neurological exam: Present: no focal deficits - Psychiatric Psychiatric exam: Present: normal affect, normal mood - Skin Skin exam: Present: dry, intact, normal color, warm Results - Labs CBC & Chem 7: 08/26/17 04:00 08/26/17 04:00 Labs: Last Result Calcium 7.9 mg/dL (8.6-10.3) L 08/26/17 04:00 Stool Occult Blood Positive (Negative) A 08/26/17 04:15 Entire Visit Hgb 6.9 g/dL (11.5-15.4) L 08/26/17 04:00 Hct 23.1 % (35.3-44.9) L 08/26/17 04:00 PT 13.0 Seconds (9.4-12.1) H 08/25/17 16:14 - ABG ABG results: ABG ABG pH 7.39 pH Units (7.32-7.45) 08/25/17 21:03 ABG pCO2 81 mmHg (35-45) H* 08/25/17 21:03 ABG pO2 105 mmHg (85-104) H 08/25/17 21:03 ABG O2 Saturation 98 % (95-98) 08/25/17 21:03 PT/INR, D-dimer PT 13.0 Seconds (9.4-12.1) H 08/25/17 16:14 Consult Discharge Plan - Plan Referrals: Francisco Melgar Jr [Primary Care Provider] -
[2017-08-26] MEDS ORDERED: (Ferrous Gluconate [Ferrous Gluconate] 324 MG) PO SCH (12:00)
[2017-08-26 15:59] LABS: Hematocrit 30.5 % (35.3-44.9)
[2017-08-26 16:01] LABS: Hemoglobin 9.9 g/dL (11.5-15.4)
--- NOTE | 2017-08-26 16:13 | Electrocardiograph Report ---
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
[2017-08-26] MEDS: 0.9 % Sodium Chloride 1,000 ML IVC SCH ×2 (17:00→21:26)
[2017-08-26] MEDS ORDERED: MORPHINE SUL Oral CONC 10 MG/0.5 ML ORAL.SYG SL PRN (17:13)
[2017-08-26] MEDS ORDERED: Atropine Sulfate 1% 40 DROP/2 ML BOTTLE SL PRN (17:14)
[2017-08-26] MEDS ORDERED: *HR* LORazepam 2 MG/ML VIAL IVP PRN (17:15)
[2017-08-26] MEDS ORDERED: (Umeclidinium Bromide [Incruse Ellipta] 1 PUFF) IH SCH (18:00)
[2017-08-26] MEDS: rOPINIRole 1 MG TABLET PO SCH (19:39)
[2017-08-26] MEDS: ALPRAZolam 0.25 MG TABLET PO SCH (19:39)
--- NOTE | 2017-08-26 19:55 | Internal Med Progress Note ---
Date of Encounter: 08/26/17 Time of Encounter: 14:17 - Assessment and plan (1) Anemia Current Visit: Yes Status: Chronic Assessment and plan: Acute on chronic anemia likely secondary to acute blood loss. Multiple episodes of acute anemia in the last few months. Has had multiple scopes by GI. GI consulted; appreciate input. No endoscopy planned at this time. S/P 2 units PRBC with improvement in hemoglobin. Symptoms improved at this time. Will transfuse to keep hemoglobin > 8.0. Continue IV PPI BID. Will likely become hospice in AM; plan to discontinue interventions at that time per patient and sister (POA) request. Qualifiers: Anemia type: other cause Other causes of anemia: chronic disease, other Qualified Code(s): D63.8 - Anemia in other chronic diseases classified elsewhere (2) Hypotension Current Visit: Yes Status: Acute Assessment and plan: Has borderline low BP at baseline due to multiple comorbidities- CHF, COPD, CKD , anemia. Acute hypotension likely secondary to GI bleed/anemia. S/P 2 units PRBC transfusion. Hemoglobin improved to 9.9, and patient states that she feels better. Continue IV hydration; at risk for volume overload and respiratory failure. Continue Midodrine. Oceanographer Geological consulted; appreciate input. Continue dopamine drip per external grinder recommendation. Plan to discontinue pressors tomorrow after initiating hospice care. Qualifiers: Hypotension type: other hypotension type Qualified Code(s): I95.89 - Other hypotension (3) Ohrbf-wp-exfamoj kidney injury Current Visit: Yes Status: Acute Assessment and plan: Has CKD-stage 3 with baseline Creatinine around 1.3. Now at 2.77; likely secondary to anemia and hypotension. Continue IV hydration as per above. Will defer further monitoring with labwork as patient to be made hospice. Qualifiers: Acute renal failure type: unspecified Chronic kidney disease stage: stage 3 (moderate) Qualified Code(s): N17.9 - Acute kidney failure, unspecified; N18.3 - Chronic kidney disease, stage 3 (moderate); N18.3 - Chronic kidney disease, stage 3 (moderate) (4) COPD (chronic obstructive pulmonary disease) Current Visit: Yes Status: Chronic Assessment and plan: Severe COPD at baseline. Continue supplemental O2 and BiPAP at night. Continue PRN breathing treatments. Qualifiers: COPD type: chronic bronchitis Chronic bronchitis type: mucopurulent Qualified Code(s): J41.1 - Mucopurulent chronic bronchitis (5) Acute encephalopathy Current Visit: Yes Status: Acute Assessment and plan: Likely metabolic due to multiple medical problems. For hypercapnia, will start BiPAP PRN for patient comfort. Treating acute blood loss anemia as per above. Palliative care consulted as per above; plan to withdraw care tomorrow per palliative care discussion with POA. (6) Hypothyroidism Current Visit: Yes Status: Chronic Assessment and plan: Continue Levothyroxine. Qualifiers: Hypothyroidism type: unspecified Qualified Code(s): E03.9 - Hypothyroidism , unspecified (7) Counseling regarding advanced care planning and goals of care Current Visit: Yes Status: Acute Assessment and plan: Palliative care consulted; appreciate input. Patient now DNR-CCA-DNI after discussion with patient and sister, who is POA. (8) History of breast cancer Current Visit: Yes Status: Chronic Assessment and plan: Follows with Oncology. Poor prognosis. Palliative care consulted; appreciate input. Patient now DNR-CCA-DNI. Plan to withdraw care tomorrow. Will start hospice medications, including morphine, ativan, and atropine. (9) Atrial fibrillation with slow ventricular response Current Visit: Yes Status: Chronic Assessment and plan: Has paced rhythm; episodes of bradycardia noted. Continue to hold Amiodarone. Continue telemetry. No anticoagulation due to acute bleed. (10) Congestive heart failure (CHF) Current Visit: Yes Status: Chronic Assessment and plan: ECHO from last month shows EF 45%, moderate LV dilation, moderate-severe MR, moderate pHTN. Has history of low BP, but worse this admission. Continue to hold Entresto and diuretics due to hypotension/hemorrhagic shock; at risk for respiratory failure and volume overload. Treating blood loss anemia as per above. 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 Continue supportive care. Qualifiers: Laterality: left Qualified Code(s): I82.612 - Acute embolism and thrombosis of superficial veins of left upper extremity (12) Hemorrhagic shock Current Visit: Yes Status: Acute Assessment and plan: Treatment as per above. (13) Chronic respiratory failure with hypercapnia Current Visit: Yes Status: Chronic Assessment and plan: Continue BiPAP PRN for patient comfort as per above. Continue supplemental O2. - Time Spent With Patient Total time spent is greater than 50% in coordination of care (as documented) at patient's floor/unit and/or counseling patient: 25 - 35 minutes - Subjective Interval history: Patient had hypotension overnight. Started on dopamine drip this AM with improvement in BP. She states that she is feeling better this morning. Sister and other family are in room today. There are interested in speaking with palliative care and becoming hospice. Sister states that patient has increased tremors, which happens when her CO2 is up. Patient advised that she can use PRN BiPAP for comfort. She talks appropriately and voices no concerns. - Constitutional Vitals: Temp Pulse Resp BP Pulse Ox 99.1 F 76 14 108/59 93 08/26/17 18:50 08/26/17 18:50 08/26/17 18:50 08/26/17 18:50 08/26/17 18:50 General appearance: Present: cooperative, A&O X 1, pleasant, no acute distress, answers questions appropriately - Respiratory Respiratory exam: Present: CTAB. Absent: accessory muscle use, rales, rhonchi, wheezes Additional comments: Mildly labored WOB - Cardiovascular Cardiovascular exam: Present: RRR, +S1, +S2. Absent: diastolic murmur, gallop, rubs, systolic murmur Additional comments: 1+ BLE edema, 2+ LUE edema - GI/Abdominal GI/Abdominal exam: Present: normal bowel sounds, soft. Absent: hepatomegaly, mass, splenomegaly, tenderness Additional comments: Mildly distended - Psychiatric Psychiatric exam: Present: normal affect, normal mood. Absent: agitated, anxious, depressed - Skin Skin exam: Present: dry, intact, warm. Absent: cyanosis, rash Internal Medicine: Result - Labs CBC & Chem 7: 08/26/17 15:40 08/26/17 04:00 Labs: Short CBC 08/26/17 08/26/17 Range/Units 04:00 15:40 WBC 4.1 L (4.3-11.1) K/mcL Hgb 6.9 L 9.9 L D (11.5-15.4) g/dL Hct 23.1 L 30.5 L (35.3-44.9) % Plt Count 37 L (140-400) K/mcL Neutrophils # 3.4 (1.6-8.9) K/mcL BMP 08/26/17 04:00 Sodium 140 Potassium 3.7 Chloride 99 Carbon Dioxide 37 H BUN 45 H Creatinine 2.77 H Glucose 53 L Calcium 7.9 L - ABG Interpretation ABG results: ABG ABG pH 7.39 pH Units (7.32-7.45) 08/25/17 21:03 ABG pCO2 81 mmHg (35-45) H* 08/25/17 21:03 ABG pO2 105 mmHg (85-104) H 08/25/17 21:03 ABG O2 Saturation 98 % (95-98) 08/25/17 21:03 PT/INR, D-dimer PT 13.0 Seconds (9.4-12.1) H 08/25/17 16:14 - VTE Reasons for not Prescribing Prophylaxis: Medical contraindication (Acute Blood Loss Anemia/Hemorrhagic Shock) Consult Discharge Plan - Plan Referrals: Francisco Melgar Jr [Primary Care Provider] -
[2017-08-26] MEDS: Albuterol 2.5 MG/3 ML NEBULIZER IH PRN (20:48)
[2017-08-27] MEDS: Pantoprazole 40 MG VIAL IVP SCH ×2 (05:28→16:40)
--- NOTE | 2017-08-27 07:22 | Palliative Progress Note ---
Date of Encounter: 08/27/17 Time of Encounter: 07:10 - Assessment and plan (1) Acute exacerbation of chronic obstructive airways disease Current Visit: Yes Status: Acute Assessment and plan: Continue as needed BiPAP, and U oxygen and breathing treatments. (2) Goals of care, counseling/discussion Current Visit: Yes Status: Acute Assessment and plan: Per discussion with patient's medical power of consumer attorney her sister, Milka have changed her CODE STATUS to DNR CC. Be no more transfusions no further blood draws we will plan on stopping her dopamine when her medical secondary medical power of consumer attorney Juli Agosto arrives approximately 1300 hrs. today. (3) Rectal bleeding Current Visit: No Status: Acute Assessment and plan: I have discussed at length with patient's family regarding her rectal bleeding is not going to stop they have tried multiple times to be able to stop it and she cannot tolerate the procedures that would necessarily be used to stop it. Therefore we are artificially prolonging her life with blood transfusions which are really doing nothing for her in terms of being able to get her up and moving because even if she is able to her lungs are bad enough to cause her to not be able to. Therefore family blood transfusions will now be stopped vasopressors will be stopped continue comfort measures with regards to breathing. - Time Spent With Patient Total time spent is greater than 50% in coordination of care (as documented) at patient's floor/unit and/or counseling patient: - Subjective Interval history: Patient is sleeping very soundly, however per nurses notes his been awake alert and oriented, last night as of 325. However, this morning the patient care team coordinator scheduler informs me that she tried mildly noxious stimuli and the patient did not awaken. Will return later to talk to her more. - Constitutional Vitals: Abnormal lab results WBC 4.1 K/mcL (4.3-11.1) L 08/26/17 04:00 RBC 2.44 M/mcL (3.82-4.97) L 08/26/17 04:00 Hgb 9.9 g/dL (11.5-15.4) L D 08/26/17 15:40 Hct 30.5 % (35.3-44.9) L 08/26/17 15:40 MCHC 29.9 g/dL (31.6-35.5) L 08/26/17 04:00 RDW 16.7 % (11.5-14.5) H 08/26/17 04:00 Plt Count 37 K/mcL (140-400) L 08/26/17 04:00 Lymphocytes # 0.4 K/mcL (0.6-4.6) L 08/26/17 04:00 Immature Plt Fraction 6.5 % (1.1-6.1) H 08/26/17 04:00 PT 13.0 Seconds (9.4-12.1) H 08/25/17 16:14 APTT 36.9 Seconds (26.0-36.0) H 08/25/17 16:14 ABG pCO2 81 mmHg (35-45) H* 08/25/17 21:03 ABG pO2 105 mmHg (85-104) H 08/25/17 21:03 ABG HCO3 49 mEq/L (21-27) H 08/25/17 21:03 ABG Total CO2 51 mEq/L (20-26) H 08/25/17 21:03 ABG Base Excess 20 mEq/L (-2 to 3) H 08/25/17 21:03 Carbon Dioxide 37 mEq/L (23-29) H 08/26/17 04:00 BUN 45 mg/dL (8-23) H 08/26/17 04:00 Creatinine 2.77 mg/dL (0.60-1.20) H 08/26/17 04:00 Est GFR ( Amer) 20 (> 60) L 08/26/17 04:00 Est GFR (Non-Af Amer) 17 (> 60) L 08/26/17 04:00 Glucose 53 mg/dL (70-105) L 08/26/17 04:00 Calcium 7.9 mg/dL (8.6-10.3) L 08/26/17 04:00 Stool Occult Blood Positive (Negative) A 08/26/17 04:15 General appearance: Present: no acute distress (On BiPAP and tolerating well) - Respiratory Respiratory exam: Present: decreased breath sounds, prolonged expiratory phase, wheezes - Cardiovascular Cardiovascular exam: Present: RRR - GI/Abdominal GI/Abdominal exam: Present: normal bowel sounds, soft. Absent: tenderness - Extremities Exam Extremities exam: Present: pedal edema. Absent: normal inspection (Redness noted right leg fetopathy), tenderness - Neurological Exam Neurological exam: Present: alert, oriented X3 - Psychiatric Psychiatric exam: Absent: agitated, anxious - Skin Skin exam: Present: dry, warm Palliative Quality Palliative Quality: Screen for Code Status: Yes, Screen for Goals of Care: Yes, Screen for Pain: Yes, Screen for Nausea/Vomitting: Yes Code Status: 08/25/17 20:06 Resuscitation Status: Active [RES] Routine Comment: Resuscitation Status: [id number] - Labs CBC & Chem 7: 08/26/17 15:40 08/26/17 04:00 Labs: Laboratory Results - last 24 hr 08/26/17 15:40 Hgb 9.9 L D Hct 30.5 L - ABG Interpretation ABG results: ABG ABG pH 7.39 pH Units (7.32-7.45) 08/25/17 21:03 ABG pCO2 81 mmHg (35-45) H* 08/25/17 21:03 ABG pO2 105 mmHg (85-104) H 08/25/17 21:03 ABG O2 Saturation 98 % (95-98) 08/25/17 21:03 PT/INR, D-dimer PT 13.0 Seconds (9.4-12.1) H 08/25/17 16:14 Consult Discharge Plan - Plan Referrals: Francisco Melgar Jr [Primary Care Provider] -
--- NOTE | 2017-08-27 07:53 | Pulmonology Progress Note ---
<Jose L Choi - Last Filed: 08/27/17 11:33> Date of Encounter: 08/27/17 Time of Encounter: 09:35 Assessment and Plan (1) Hypotension Current Visit: Yes Status: Acute Patient was on dopamine drip 2.5 mcg/kg/m. Her blood pressure held throughout the day. Family has made the decision to move to hospice care so all IV lines are being removed including the dopamine. At this time pulmonology will be signing off Qualifiers: Hypotension type: other hypotension type Qualified Code(s): I95.89 - Other hypotension (2) Acute encephalopathy Current Visit: Yes Status: Acute Management by the day team patient is on hospice pulmonology as signing off (3) Anemia Current Visit: Yes Status: Acute Management by the day team patient is on hospice pulmonology as signing off Qualifiers: Anemia type: other cause Other causes of anemia: chronic disease, other Qualified Code(s): D63.8 - Anemia in other chronic diseases classified elsewhere (4) [id number] kidney injury Current Visit: Yes Status: Acute Management by the day team patient is on hospice pulmonology as signing off Qualifiers: Acute renal failure type: unspecified Chronic kidney disease stage: stage 3 (moderate) Qualified Code(s): N17.9 - Acute kidney failure, unspecified; N18.3 - Chronic kidney disease, stage 3 (moderate); N18.3 - Chronic kidney disease, stage 3 (moderate) (5) COPD (chronic obstructive pulmonary disease) Current Visit: Yes Status: Chronic Management by the day team patient is on hospice pulmonology as signing off Qualifiers: COPD type: emphysema Emphysema type: unspecified Qualified Code(s): J43.9 - Emphysema, unspecified (6) Atrial fibrillation with slow ventricular response Current Visit: Yes Status: Chronic Management by the day team patient is on hospice pulmonology as signing off (7) Congestive heart failure (CHF) Current Visit: Yes Status: Chronic Management by the day team patient is on hospice pulmonology as signing off Qualifiers: Heart failure type: combined systolic and diastolic Heart failure chronicity: chronic Qualified Code(s): I50.42 - Chronic combined systolic ( congestive) and diastolic (congestive) heart failure Subjective Principal diagnosis: Hypotension Interval history: There are no acute overnight events. Family did make the decision to move to hospice care late last night and this will happen early this morning as all IV lines we removed and patient will be undergoing comfort care. Objective PUL Vital signs: Last Vital Signs Temp 97.4 F L 08/27/17 07:38 Pulse 78 08/27/17 07:38 Resp 16 08/27/17 07:38 BP 107/67 08/27/17 07:38 Pulse Ox 100 08/27/17 07:38 General appearance: no acute distress, asleep Eyes: nonicteric ENT: oropharynx moist Neck: supple Effort: normal Auscultation: bilateral: diminished breath sounds, rhonchi Cardiovascular: regular rate and rhythm Gastrointestinal: normoactive bowel sounds, soft, non-tender, non-distended Integumentary: normal Extremities: no cyanosis, no clubbing, edema (2+ bilaterally in the legs) Musculoskeletal: no deformities, ROM normal unable to assess due to mental status Results - Laboratory Findings CBC and BMP: 08/26/17 15:40 08/26/17 04:00 ABG ABG pH 7.39 pH Units (7.32-7.45) 08/25/17 21:03 ABG pCO2 81 mmHg (35-45) H* 08/25/17 21:03 ABG pO2 105 mmHg (85-104) H 08/25/17 21:03 ABG O2 Saturation 98 % (95-98) 08/25/17 21:03 PT/INR, D-dimer PT 13.0 Seconds (9.4-12.1) H 08/25/17 16:14 Abnormal lab findings: Abnormal lab results WBC 4.1 K/mcL (4.3-11.1) L 08/26/17 04:00 RBC 2.44 M/mcL (3.82-4.97) L 08/26/17 04:00 Hgb 9.9 g/dL (11.5-15.4) L D 08/26/17 15:40 Hct 30.5 % (35.3-44.9) L 08/26/17 15:40 MCHC 29.9 g/dL (31.6-35.5) L 08/26/17 04:00 RDW 16.7 % (11.5-14.5) H 08/26/17 04:00 Plt Count 37 K/mcL (140-400) L 08/26/17 04:00 Lymphocytes # 0.4 K/mcL (0.6-4.6) L 08/26/17 04:00 Immature Plt Fraction 6.5 % (1.1-6.1) H 08/26/17 04:00 PT 13.0 Seconds (9.4-12.1) H 08/25/17 16:14 APTT 36.9 Seconds (26.0-36.0) H 08/25/17 16:14 ABG pCO2 81 mmHg (35-45) H* 08/25/17 21:03 ABG pO2 105 mmHg (85-104) H 08/25/17 21:03 ABG HCO3 49 mEq/L (21-27) H 08/25/17 21:03 ABG Total CO2 51 mEq/L (20-26) H 08/25/17 21:03 ABG Base Excess 20 mEq/L (-2 to 3) H 08/25/17 21:03 Carbon Dioxide 37 mEq/L (23-29) H 08/26/17 04:00 BUN 45 mg/dL (8-23) H 08/26/17 04:00 Creatinine 2.77 mg/dL (0.60-1.20) H 08/26/17 04:00 Est GFR ( Amer) 20 (> 60) L 08/26/17 04:00 Est GFR (Non-Af Amer) 17 (> 60) L 08/26/17 04:00 Glucose 53 mg/dL (70-105) L 08/26/17 04:00 Calcium 7.9 mg/dL (8.6-10.3) L 08/26/17 04:00 Stool Occult Blood Positive (Negative) A 08/26/17 04:15 - Clinical Findings Intake & Output: Intake & Output 08/26/17 08/26/17 08/27/17 15:59 23:59 07:59 Intake Total 710 / 710 1124 / 1124 126 / 126 Output Total 300 / 300 Balance 710 / 710 1124 / 1124 -174 / -174 Weight 98.6 kg - VTE Reasons for not Prescribing Prophylaxis: Medical contraindication (Acute Blood Loss Anemia/Hemorrhagic Shock) Consult Discharge Plan - Plan Referrals: Francisco Melgar Jr [Primary Care Provider] - <Saadlla,Haval M - Last Filed: 08/27/17 16:17> Date of Encounter: 08/27/17 Objective PUL Vital signs: Last Vital Signs Temp 97.6 F 08/27/17 10:52 Pulse 79 08/27/17 10:52 Resp 16 08/27/17 10:52 BP 67/37 08/27/17 14:51 Pulse Ox 100 08/27/17 10:52 Results - Laboratory Findings CBC and BMP: 08/26/17 15:40 08/26/17 04:00 ABG ABG pH 7.39 pH Units (7.32-7.45) 08/25/17 21:03 ABG pCO2 81 mmHg (35-45) H* 08/25/17 21:03 ABG pO2 105 mmHg (85-104) H 08/25/17 21:03 ABG O2 Saturation 98 % (95-98) 08/25/17 21:03 PT/INR, D-dimer PT 13.0 Seconds (9.4-12.1) H 08/25/17 16:14 Abnormal lab findings: Abnormal lab results WBC 4.1 K/mcL (4.3-11.1) L 08/26/17 04:00 RBC 2.44 M/mcL (3.82-4.97) L 08/26/17 04:00 Hgb 9.9 g/dL (11.5-15.4) L D 08/26/17 15:40 Hct 30.5 % (35.3-44.9) L 08/26/17 15:40 MCHC 29.9 g/dL (31.6-35.5) L 08/26/17 04:00 RDW 16.7 % (11.5-14.5) H 08/26/17 04:00 Plt Count 37 K/mcL (140-400) L 08/26/17 04:00 Lymphocytes # 0.4 K/mcL (0.6-4.6) L 08/26/17 04:00 Immature Plt Fraction 6.5 % (1.1-6.1) H 08/26/17 04:00 PT 13.0 Seconds (9.4-12.1) H 08/25/17 16:14 APTT 36.9 Seconds (26.0-36.0) H 08/25/17 16:14 ABG pCO2 81 mmHg (35-45) H* 08/25/17 21:03 ABG pO2 105 mmHg (85-104) H 08/25/17 21:03 ABG HCO3 49 mEq/L (21-27) H 08/25/17 21:03 ABG Total CO2 51 mEq/L (20-26) H 08/25/17 21:03 ABG Base Excess 20 mEq/L (-2 to 3) H 08/25/17 21:03 Carbon Dioxide 37 mEq/L (23-29) H 08/26/17 04:00 BUN 45 mg/dL (8-23) H 08/26/17 04:00 Creatinine 2.77 mg/dL (0.60-1.20) H 08/26/17 04:00 Est GFR ( Amer) 20 (> 60) L 08/26/17 04:00 Est GFR (Non-Af Amer) 17 (> 60) L 08/26/17 04:00 Glucose 53 mg/dL (70-105) L 08/26/17 04:00 Calcium 7.9 mg/dL (8.6-10.3) L 08/26/17 04:00 Stool Occult Blood Positive (Negative) A 08/26/17 04:15 - Clinical Findings Intake & Output: Intake & Output 08/27/17 08/27/17 08/27/17 07:59 15:59 23:59 Intake Total 126 / 126 220 / 220 Output Total 300 / 300 Balance -174 / -174 220 / 220 Weight 98.6 kg - Attending Attestation I examined this patient and my medical decision-making was reviewed with the Resident Physician. I agree with the documented findings, disposition and treatment plan as described except to the extent set forth below. Patient seen and examined. Labs, radiology, chart personally reviewed. Agree with resident's history and physical, assessment, plan with following comments: STUDENT [employer] DEAN: Patient follows commands, Pulmonary: Acceptable oxygenation and ventilation Cardiovascular: Supportive care Overall prognosis is poor and patient has been managed appropriately at this time. Please call for any questions.
[2017-08-27] MEDS: Sucralfate 1 GM TABLET PO SCH ×4 (09:32→21:55)
[2017-08-27] MEDS: Nystatin POWDER 30 GM BOTTLE TP SCH ×2 (09:36→22:55)
[2017-08-27] MEDS: Folic Acid 1 MG TABLET PO SCH (09:36)
[2017-08-27] MEDS: Bumetanide 1 MG TABLET PO SCH ×2 (09:36→16:03)
[2017-08-27] MEDS: Tiotropium 18 MCG inhalation IH SCH (10:19)
[2017-08-27] MEDS: Budesonide/Formoterol 160/4.5 MDI IH SCH ×2 (10:19→22:18)
[2017-08-27] MEDS: Albuterol 2.5 MG/3 ML NEBULIZER IH PRN (10:19)
[2017-08-27] MEDS ORDERED: Haloperidol Oral Conc 10 MG/5 ML UDC PO PRN (10:29)
--- NOTE | 2017-08-27 13:40 | Event Note ---
Date of Encounter: 08/27/17 Time of Encounter: 13:37 i have discussed case with patent and family (both first and second mpoa's) all are in agreement with stopping blood, stopping vasoactive drugs, and going hospice on discharge tomorrow. Have received word that all is squared away with [facility] in place for discharge tomorrow. Stress this as well with the hospitalist in charge of the case he will discharge in the morning. Dopamine will be stopped this evening. And we will see how the patient is in the morning. Discussed medication choices with the nurses and they know to contact me if there is any problems tonight.
--- NOTE | 2017-08-27 20:24 | Internal Med Progress Note ---
Date of Encounter: 08/27/17 Time of Encounter: 15:37 - Assessment and plan (1) Anemia Current Visit: Yes Status: Chronic Assessment and plan: Transitioned to complete comfort care this afternoon after consultation with palliative care. Please see their notes for full details. We will stop all blood products, vasopressors, and other supportive measures. Continue palliative care orders for comfort. Plan to transfer to [facility] tomorrow with hospice. Qualifiers: Anemia type: other cause Other causes of anemia: chronic disease, other Qualified Code(s): D63.8 - Anemia in other chronic diseases classified elsewhere (2) Hypotension Current Visit: Yes Status: Acute Assessment and plan: Plan for hospice and comfort care as per above. Qualifiers: Hypotension type: other hypotension type Qualified Code(s): I95.89 - Other hypotension (3) Dlmnp-gu-qmeojrq kidney injury Current Visit: Yes Status: Acute Assessment and plan: Has CKD-stage 3. Plan for hospice and comfort care as per above. Qualifiers: Acute renal failure type: unspecified Chronic kidney disease stage: stage 3 (moderate) Qualified Code(s): N17.9 - Acute kidney failure, unspecified; N18.3 - Chronic kidney disease, stage 3 (moderate); N18.3 - Chronic kidney disease, stage 3 (moderate) (4) COPD (chronic obstructive pulmonary disease) Current Visit: Yes Status: Chronic Assessment and plan: Severe COPD at baseline. Continue supplemental O2 and BiPAP at night. Continue PRN breathing treatments. Plan for hospice and comfort care as per above. Qualifiers: COPD type: chronic bronchitis Chronic bronchitis type: mucopurulent Qualified Code(s): J41.1 - Mucopurulent chronic bronchitis (5) Acute encephalopathy Current Visit: Yes Status: Acute Assessment and plan: Likely metabolic due to multiple medical problems. For hypercapnia, can continue BiPAP PRN for patient comfort. Plan for hospice and comfort care as per above. (6) Hypothyroidism Current Visit: Yes Status: Chronic Assessment and plan: Continue Levothyroxine. Qualifiers: Hypothyroidism type: unspecified Qualified Code(s): E03.9 - Hypothyroidism , unspecified (7) Counseling regarding advanced care planning and goals of care Current Visit: Yes Status: Acute Assessment and plan: Palliative care consulted; appreciate input. Patient DNR-CCA-DNI. Plan for hospice and comfort care as per above. (8) History of breast cancer Current Visit: Yes Status: Chronic Assessment and plan: Follows with Oncology. Poor prognosis. Palliative care consulted; appreciate input. Patient now DNR-CCA-DNI. Plan for hospice and comfort care as per above. (9) Atrial fibrillation with slow ventricular response Current Visit: Yes Status: Chronic Assessment and plan: Plan for hospice and comfort care as per above. (10) Congestive heart failure (CHF) Current Visit: Yes Status: Chronic Assessment and plan: ECHO from last month shows EF 45%, moderate LV dilation, moderate-severe MR, moderate pHTN. Plan for hospice and comfort care as per above. 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 Continue supportive care. Qualifiers: Laterality: left Qualified Code(s): I82.612 - Acute embolism and thrombosis of superficial veins of left upper extremity (12) Hemorrhagic shock Current Visit: Yes Status: Acute Assessment and plan: Plan for hospice and comfort care as per above. (13) Chronic respiratory failure with hypercapnia Current Visit: Yes Status: Chronic Assessment and plan: Continue BiPAP PRN for patient comfort as per above. Continue supplemental O2 for comfort. Plan for hospice and comfort care as per above. - Time Spent With Patient Total time spent is greater than 50% in coordination of care (as documented) at patient's floor/unit and/or counseling patient: less than 15 minutes - Subjective Interval history: Patient had no acute events overnight. She voices no concerns at this time. Sister is in room today. Patient was transitioned to complete comfort care this AM after consultation with palliative care. I personally spoke with palliative care Dr. Chase, and patient and family are all in agreement with stopping blood, stopping vasoactive drugs, and going hospice on discharge tomorrow. - Constitutional Vitals: Temp Pulse Resp BP Pulse Ox 97.6 F 61 18 76/39 98 08/27/17 18:59 08/27/17 18:59 08/27/17 18:59 08/27/17 18:59 08/27/17 18:59 General appearance: Present: cooperative, A&O X 1, pleasant, no acute distress, answers questions appropriately - Respiratory Respiratory exam: Present: CTAB. Absent: accessory muscle use, rales, rhonchi, wheezes Additional comments: Normal WOB - Cardiovascular Cardiovascular exam: Present: RRR, +S1, +S2. Absent: diastolic murmur, gallop, rubs, systolic murmur Additional comments: 1+ BLE edema, 2+ LUE edema - GI/Abdominal GI/Abdominal exam: Present: normal bowel sounds, soft. Absent: hepatomegaly, mass, splenomegaly, tenderness Additional comments: Mildly distended abdomen - Psychiatric Psychiatric exam: Present: normal affect, normal mood. Absent: agitated, anxious, depressed - Skin Skin exam: Present: dry, intact, warm. Absent: cyanosis, rash Internal Medicine: Result - Labs CBC & Chem 7: 08/26/17 15:40 08/26/17 04:00 - ABG Interpretation ABG results: ABG ABG pH 7.39 pH Units (7.32-7.45) 08/25/17 21:03 ABG pCO2 81 mmHg (35-45) H* 08/25/17 21:03 ABG pO2 105 mmHg (85-104) H 08/25/17 21:03 ABG O2 Saturation 98 % (95-98) 08/25/17 21:03 PT/INR, D-dimer PT 13.0 Seconds (9.4-12.1) H 08/25/17 16:14 - VTE Reasons for not Prescribing Prophylaxis: Medical contraindication (Acute Blood Loss Anemia/Hemorrhagic Shock) Consult Discharge Plan - Plan Referrals: Francisco Melgar Jr [Primary Care Provider] -
[2017-08-27] MEDS: rOPINIRole 1 MG TABLET PO SCH (21:55)
[2017-08-27] MEDS: ALPRAZolam 0.25 MG TABLET PO SCH (21:57)
[2017-08-28] MEDS: MORPHINE SUL Oral CONC 10 MG/0.5 ML ORAL.SYG SL PRN ×2 (00:47→03:10)
[2017-08-28] MEDS: Pantoprazole 40 MG VIAL IVP SCH (06:36)
[2017-08-28] MEDS: Sucralfate 1 GM TABLET PO SCH (07:44)
--- NOTE | 2017-08-28 07:44 | Palliative Progress Note ---
Date of Encounter: 08/28/17 Time of Encounter: 07:00 - Assessment and plan (1) Acute exacerbation of chronic obstructive airways disease Current Visit: Yes Status: Acute Assessment and plan: Continue as needed BiPAP, and U oxygen and breathing treatments. She transitioning to hospice care at [facility] today. (2) Goals of care, counseling/discussion Current Visit: Yes Status: Acute Assessment and plan: Per discussion with patient's medical power of commonwealth attorney her sister, Milka have changed her CODE STATUS to DNR CC. Be no more transfusions no further blood draws we will plan on stopping her dopamine when her medical secondary medical power of commonwealth attorney Juli Agosto arrives approximately 1300 hrs. today. She is tolerating being off pressors quite well, transitioning to hospice care at [facility] today. Of note the patient has done extremely well with small doses of morphine in the 2.5 mg range. For these as well as Ativan and Haldol all these will be filled by [facility]. (3) Rectal bleeding Current Visit: No Status: Acute Assessment and plan: I have discussed at length with patient's family regarding her rectal bleeding is not going to stop they have tried multiple times to be able to stop it and she cannot tolerate the procedures that would necessarily be used to stop it. Therefore we are artificially prolonging her life with blood transfusions which are really doing nothing for her in terms of being able to get her up and moving because even if she is able to her lungs are bad enough to cause her to not be able to. Therefore family blood transfusions will now be stopped vasopressors will be stopped continue comfort measures with regards to breathing. Further effort will be made to assess GI blood loss, or replace it. Patient is transitioning to [facility] hospice at [facility] today. - Time Spent With Patient Total time spent is greater than 50% in coordination of care (as documented) at patient's floor/unit and/or counseling patient: - Subjective Interval history: Patient is awake, and awakens easily. Patient is alert and able to interact. What pressure I do not believe has been as low as is being documented in that the patient does have a good radial pulse give a blood pressure between 80 and 90+ minimum. She is also tolerated quite well small doses of morphine during the course of the night - Constitutional Vitals: Abnormal lab results WBC 4.1 K/mcL (4.3-11.1) L 08/26/17 04:00 RBC 2.44 M/mcL (3.82-4.97) L 08/26/17 04:00 Hgb 9.9 g/dL (11.5-15.4) L D 08/26/17 15:40 Hct 30.5 % (35.3-44.9) L 08/26/17 15:40 MCHC 29.9 g/dL (31.6-35.5) L 08/26/17 04:00 RDW 16.7 % (11.5-14.5) H 08/26/17 04:00 Plt Count 37 K/mcL (140-400) L 08/26/17 04:00 Lymphocytes # 0.4 K/mcL (0.6-4.6) L 08/26/17 04:00 Immature Plt Fraction 6.5 % (1.1-6.1) H 08/26/17 04:00 PT 13.0 Seconds (9.4-12.1) H 08/25/17 16:14 APTT 36.9 Seconds (26.0-36.0) H 08/25/17 16:14 ABG pCO2 81 mmHg (35-45) H* 08/25/17 21:03 ABG pO2 105 mmHg (85-104) H 08/25/17 21:03 ABG HCO3 49 mEq/L (21-27) H 08/25/17 21:03 ABG Total CO2 51 mEq/L (20-26) H 08/25/17 21:03 ABG Base Excess 20 mEq/L (-2 to 3) H 08/25/17 21:03 Carbon Dioxide 37 mEq/L (23-29) H 08/26/17 04:00 BUN 45 mg/dL (8-23) H 08/26/17 04:00 Creatinine 2.77 mg/dL (0.60-1.20) H 08/26/17 04:00 Est GFR ( Amer) 20 (> 60) L 08/26/17 04:00 Est GFR (Non-Af Amer) 17 (> 60) L 08/26/17 04:00 Glucose 53 mg/dL (70-105) L 08/26/17 04:00 Calcium 7.9 mg/dL (8.6-10.3) L 08/26/17 04:00 Stool Occult Blood Positive (Negative) A 08/26/17 04:15 General appearance: Present: no acute distress - Head Head exam: Present: atraumatic, normal inspection - Respiratory Respiratory exam: Present: decreased breath sounds - Cardiovascular Cardiovascular exam: Present: RRR - GI/Abdominal GI/Abdominal exam: Present: normal bowel sounds, soft. Absent: tenderness - Extremities Exam Extremities exam: Present: pedal edema (Puffy). Absent: tenderness - Neurological Exam Neurological exam: Present: alert - Psychiatric Psychiatric exam: Absent: agitated, anxious - Skin Skin exam: Present: dry, warm Palliative Quality Palliative Quality: Screen for Code Status: Yes, Screen for Goals of Care: Yes, Screen for Pain: Yes, If Pain Regimen Started, Initiate Bowel Regimen: NA ( Having frequent bowel movements due to GI bleed), Screen for Nausea/Vomitting: Yes Code Status: 08/25/17 20:06 Resuscitation Status: Active [RES] Routine Comment: Resuscitation Status: [id number] Resuscitation Status: Active [RES] Routine Comment: Resuscitation Status: DNR-Comfort Care - Labs CBC & Chem 7: 08/26/17 15:40 08/26/17 04:00 - ABG Interpretation ABG results: ABG ABG pH 7.39 pH Units (7.32-7.45) 08/25/17 21:03 ABG pCO2 81 mmHg (35-45) H* 08/25/17 21:03 ABG pO2 105 mmHg (85-104) H 08/25/17 21:03 ABG O2 Saturation 98 % (95-98) 08/25/17 21:03 PT/INR, D-dimer PT 13.0 Seconds (9.4-12.1) H 08/25/17 16:14 Consult Discharge Plan - Plan Referrals: Francisco Melgar Jr [Primary Care Provider] - Prescriptions: Haloperidol Oral Conc [Haldol] 1 mg SL Q6H #30 mls LORazepam Oral Conc [Ativan Oral Conc] 1 mg PO Q4H 7 Days #30 mls Morphine Oral CONC [Roxanol] 0.125 ml SL Q2H PRN 5 Days #30 ml PRN Reason: sob or pain
[2017-08-28] MEDS: Nystatin POWDER 30 GM BOTTLE TP SCH (07:45)
[2017-08-28] MEDS: Folic Acid 1 MG TABLET PO SCH (07:45)
[2017-08-28] MEDS: Bumetanide 1 MG TABLET PO SCH (07:45)
[2017-08-28 08:09] VITALS: BP 63/36
--- NOTE | 2017-08-28 10:33 | Discharge Summary ---
- NOTES TO OUTPATIENT PROVIDER Notes to Outpatient Provider: Follow up with SNF/hospice physician as directed. Date of Encounter: 08/28/17 Time of Encounter: 10:30 - Discharge Diagnosis (1) Anemia Priority: Primary Status: Chronic Qualifiers: Anemia type: other cause Other causes of anemia: chronic disease, other Qualified Code(s): D63.8 - Anemia in other chronic diseases classified elsewhere (2) Hypotension Priority: Secondary Status: Acute Qualifiers: Hypotension type: other hypotension type Qualified Code(s): I95.89 - Other hypotension (3) Yhdiw-[id number] kidney injury Priority: Secondary Status: Acute Qualifiers: Acute renal failure type: unspecified Chronic kidney disease stage: stage 3 (moderate) Qualified Code(s): N17.9 - Acute kidney failure, unspecified; N18.3 - Chronic kidney disease, stage 3 (moderate); N18.3 - Chronic kidney disease, stage 3 (moderate) (4) COPD (chronic obstructive pulmonary disease) Priority: Secondary Status: Chronic Qualifiers: COPD type: chronic bronchitis Chronic bronchitis type: mucopurulent Qualified Code(s): J41.1 - Mucopurulent chronic bronchitis (5) Acute encephalopathy Priority: Secondary Status: Acute (6) Hypothyroidism Priority: Secondary Status: Chronic Qualifiers: Hypothyroidism type: unspecified Qualified Code(s): E03.9 - Hypothyroidism , unspecified (7) Counseling regarding advanced care planning and goals of care Priority: Secondary Status: Acute (8) History of breast cancer Priority: Secondary Status: Chronic (9) Atrial fibrillation with slow ventricular response Priority: Secondary Status: Chronic (10) Congestive heart failure (CHF) Priority: Secondary Status: Chronic Qualifiers: Heart failure type: combined systolic and diastolic Heart failure chronicity: chronic Qualified Code(s): I50.42 - Chronic combined systolic ( congestive) and diastolic (congestive) heart failure (11) Superficial venous thrombosis of arm Priority: Secondary Status: Chronic Qualifiers: Laterality: left Qualified Code(s): I82.612 - Acute embolism and thrombosis of superficial veins of left upper extremity (12) Hemorrhagic shock Priority: Secondary Status: Acute (13) Chronic respiratory failure with hypercapnia Priority: Secondary Status: Chronic Hospital course: Ms. Higginbotham is a 77 year old female admitted for anemia and hypotension. Patient was admitted to general medical floor with telemetry. She was started on IVF and dopamine drip, and received transfusion of PRBC. BP improved on pressors. Palliative care was consulted. Patient's POA and patient wanted hospice care. She was made [id number]. Comfort care measures were started, and all blood products and pressors were stopped. Patient tolerated well. She is alert and oriented today, and in no distress. Plan was made to transfer to [facility] with hospice. Patient has met maximum benefit of this hospitalization and will be transferred to SNF with hospice in serious condition with poor prognosis. Discharge discussed with: patient, family, nurse, advanced manufacturing consultant (Palliative Care Dr. Chase), other (Pharmacist) - Time Spent with Patient Total time spent providing and/or coordinating discharge services: Greater than 30 minutes - Discharge Medications Prescriptions: Haloperidol Oral Conc [Haldol] 1 mg SL Q6H #30 mls LORazepam Oral Conc [Ativan Oral Conc] 1 mg PO Q4H 7 Days #30 mls Morphine Oral CONC [Roxanol] 0.125 ml SL Q2H PRN 5 Days #30 ml PRN Reason: sob or pain Home Medications: Allopurinol [Zyloprim 300 MG] 300 mg PO DAILY 01/12/16 [History] Oxygen 4 l NS AD 04/22/16 [History] Folic Acid 1 mg PO DAILY 05/28/16 [History] Ranitidine HCl [Acid Yardage Caller] 150 mg PO BID 07/12/16 [History] Umeclidinium [place] [Incruse Ellipta] 1 puff IH QPM 10/14/16 [History] Fluticasone/Vilanterol [Breo Ellipta 200-25 Mcg INH] 1 each IH BID 06/16/17 [ History] Ondansetron ODT [Zofran ODT] 4 mg SL Q8H PRN 06/16/17 [History] Amiodarone [Cordarone] 200 mg PO DAILY #0 06/19/17 [Rx] Ropinirole HCl [Requip] 4 mg PO HS 07/09/17 [History] Omeprazole [PriLOSEC] 40 mg PO BID capsule. 07/11/17 [Rx] Sucralfate [Carafate] 1 gm PO QIDAC tablet 07/11/17 [Rx] Levothyroxine [Synthroid] 150 mcg PO DAILY@0630 tablet 07/28/17 [Rx] ALPRAZolam [Xanax 0.25 MG Tablet] 0.25 mg PO HS 5 Days #5 tablet 08/13/17 [Rx] Bumetanide [Bumex] 0.5 mg PO BIDDIURETIC #60 tablet 08/13/17 [Rx] Potassium Chloride [Klor-Con Sprinkle] 10 meq PO DAILY #30 capsule.er 08/13/17 [ Rx] Citalopram [CeleXA] 20 mg PO DAILY 08/25/17 [History] Albuterol Neb [Proventil Neb] 2.5 mg IH Q2H PRN inhsol 08/28/17 [Rx] Haloperidol Oral Conc [Haldol] 1 mg SL Q6H #30 mls 08/28/17 [Rx] LORazepam Oral Conc [Ativan Oral Conc] 1 mg PO Q4H 7 Days #30 mls 08/28/17 [Rx] Morphine Oral CONC [Roxanol] 0.125 ml SL Q2H PRN 5 Days #30 ml 08/28/17 [Rx] Nystatin POWDER [Nystop] 1 appl TP BID bottle 08/28/17 [Rx] Allergies/Adverse Reactions: 3 Allergy/AdvReac Type Severity Reaction Status Date / Time Penicillins Allergy Hives Verified 08/25/17 10:52 Sulfa (Sulfonamide Allergy Hives Verified 08/25/17 10:52 Antibiotics) gabapentin AdvReac Hallucinati Verified 08/25/17 10:52 ng Oxycodone [From Percocet] AdvReac Hallucinati Verified 08/25/17 10:52 ng Date of admission: 08/25/17 20:06 Primary care physician: Francisco Melgar Jr Consults: 08/25/17 20:08 Consult to Palliative Care [CONS] Routine Comment: Consulting Provider: [facility] [place] Reason for Consult: Multiple medical problems including GI bleed of unclear etiology, anemia, breast cancer, COPD, cardiomyopathy; desires Hospice care Call Completed: No 08/26/17 00:08 Consult to Nutrition [CONS] Routine Comment: Consulting Provider: NUTRITION Reason for Dietary Consult: MST Score 08/26/17 06:58 Consult to Pulmonology [CONS] Routine Consulting Provider: [facility] [place] Reason for Consult: Hypotension, anemia, worsening renal failure, severe COPD , CHF, CKD Call Completed: Yes Discharging clinician: Bhavesh Castañeda Anticipated date of discharge: 08/28/17 - Constitutional Vitals: Temp Pulse Resp BP Pulse Ox 97.4 F L 54 15 63/36 96 08/28/17 07:56 08/28/17 07:56 08/28/17 07:56 08/28/17 07:56 08/28/17 07:56 General appearance: Present: cooperative, A&O X 1, pleasant, no acute distress, answers questions appropriately - Respiratory Respiratory exam: Absent: accessory muscle use, rales, rhonchi, wheezes Additional comments: Normal WOB, decreased breath sounds bilaterally - Cardiovascular Cardiovascular exam: Present: RRR, +S1, +S2. Absent: diastolic murmur, gallop, rubs, systolic murmur Additional comments: 1+ BLE edema, 2+ LUE edema - GI/Abdominal GI/Abdominal exam: Present: normal bowel sounds, soft. Absent: hepatomegaly, mass, splenomegaly, tenderness Additional comments: Mildly distended abdomen - Psychiatric Psychiatric exam: Present: normal affect, normal mood. Absent: agitated, anxious, depressed - Skin Skin exam: Present: dry, intact, warm. Absent: cyanosis, rash - Patient Status Disposition: Hospice - Medical Facility Condition: Serious Overall status at discharge: patient is not back to baseline - Discharge Instructions Instructions: Hypotension (DC), Anemia (GEN) Follow Up With: Francisco Melgar Jr [Primary Care Provider] - Forms: ED Satisfaction Letter Additional Instructions: Follow up with SNF/hospice physician as directed. - Diet and Activity Activity: resume usual activities as tolerated, wear oxygen at all times Diet: advance to your usual diet - VTE Reasons for not Prescribing Prophylaxis: Medical contraindication (Acute Blood Loss Anemia/Hemorrhagic Shock)
--- NOTE | 2017-08-28 10:49 | Physician Discharge Referral ---
ExtendedCare Referral Info Transfer To: [facility] with Hospice Provider in Charge after Transfer: [facility] Institutional Level of Care: Skilled - Diagnosis (1) Anemia Priority: Primary Status: Chronic (2) Hypotension Priority: Secondary Status: Acute (3) Ugjch-[id number] kidney injury Priority: Secondary Status: Acute (4) COPD (chronic obstructive pulmonary disease) Priority: Secondary Status: Chronic (5) Acute encephalopathy Priority: Secondary Status: Acute (6) Hypothyroidism Priority: Secondary Status: Chronic (7) Counseling regarding advanced care planning and goals of care Priority: Secondary Status: Acute (8) History of breast cancer Priority: Secondary Status: Chronic (9) Atrial fibrillation with slow ventricular response Priority: Secondary Status: Chronic (10) Congestive heart failure (CHF) Priority: Secondary Status: Chronic (11) Superficial venous thrombosis of arm Priority: Secondary Status: Chronic (12) Hemorrhagic shock Priority: Secondary Status: Acute (13) Chronic respiratory failure with hypercapnia Priority: Secondary Status: Chronic Prognosis: Poor Aware of Diagnosis: Patient, Family Aware of Prognosis: Patient, Family - Transfer Medications Prescriptions: Haloperidol Oral Conc [Haldol] 1 mg SL Q6H #30 mls LORazepam Oral Conc [Ativan Oral Conc] 1 mg PO Q4H 7 Days #30 mls Morphine Oral CONC [Roxanol] 0.125 ml SL Q2H PRN 5 Days #30 ml PRN Reason: sob or pain Home Medications: Allopurinol [Zyloprim 300 MG] 300 mg PO DAILY 01/12/16 [History] Oxygen 4 l NS AD 04/22/16 [History] Folic Acid 1 mg PO DAILY 05/28/16 [History] Ranitidine HCl [Acid Educational Technology Coordinator] 150 mg PO BID 07/12/16 [History] Umeclidinium [place] [Incruse Ellipta] 1 puff IH QPM 10/14/16 [History] Fluticasone/Vilanterol [Breo Ellipta 200-25 Mcg INH] 1 each IH BID 06/16/17 [ History] Ondansetron ODT [Zofran ODT] 4 mg SL Q8H PRN 06/16/17 [History] Amiodarone [Cordarone] 200 mg PO DAILY #0 06/19/17 [Rx] Ropinirole HCl [Requip] 4 mg PO HS 07/09/17 [History] Omeprazole [PriLOSEC] 40 mg PO BID capsule. 07/11/17 [Rx] Sucralfate [Carafate] 1 gm PO QIDAC tablet 07/11/17 [Rx] Levothyroxine [Synthroid] 150 mcg PO DAILY@0630 tablet 07/28/17 [Rx] ALPRAZolam [Xanax 0.25 MG Tablet] 0.25 mg PO HS 5 Days #5 tablet 08/13/17 [Rx] Bumetanide [Bumex] 0.5 mg PO BIDDIURETIC #60 tablet 08/13/17 [Rx] Potassium Chloride [Klor-Con Sprinkle] 10 meq PO DAILY #30 capsule.er 08/13/17 [ Rx] Citalopram [CeleXA] 20 mg PO DAILY 08/25/17 [History] Albuterol Neb [Proventil Neb] 2.5 mg IH Q2H PRN inhsol 08/28/17 [Rx] Haloperidol Oral Conc [Haldol] 1 mg SL Q6H #30 mls 08/28/17 [Rx] LORazepam Oral Conc [Ativan Oral Conc] 1 mg PO Q4H 7 Days #30 mls 08/28/17 [Rx] Morphine Oral CONC [Roxanol] 0.125 ml SL Q2H PRN 5 Days #30 ml 08/28/17 [Rx] Nystatin POWDER [Nystop] 1 appl TP BID bottle 08/28/17 [Rx] Allergies/Adverse Reactions: 3 Allergy/AdvReac Type Severity Reaction Status Date / Time Penicillins Allergy Hives Verified 08/25/17 10:52 Sulfa (Sulfonamide Allergy Hives Verified 08/25/17 10:52 Antibiotics) gabapentin AdvReac Hallucinati Verified 08/25/17 10:52 ng Oxycodone [From Percocet] AdvReac Hallucinati Verified 08/25/17 10:52 ng - Respiratory Orders Oxygen / L per min (2-4 L NC PRN) Smoking Cessation: Smoking cessation has been advised. For more information, call the [place] Tobacco Quit Line at 6-844-LGFF-NOW. - Advance Directives Code Status: DNR-Comfort Care - Rehabiliation Orders Rehab Potential: Poor - Diet Orders Regular CERTIFICATION: I certify that the transfer of the above named patient to an Extended Care Facility is necessary for the continuing treatment of the diagnosis listed. The above information is true and accurate reflection of patient's current condition. Confidential - Redisclosure prohibited without a patient's written consent.
[2017-08-28] MEDS: Budesonide/Formoterol 160/4.5 MDI IH SCH (10:55)
[2017-08-28] MEDS: Tiotropium 18 MCG inhalation IH SCH (10:55)
== END 2017-08-28 12:18 | disposition hospice, inpatient (51) | DRG 811 ==
LOC: EMEROO 15:46 → 2ANU 15:46
PROVIDERS: ADMIT General Practice; ATTEND General Practice